=== PATIENT | male | born 1955 | race American Indian/Alaskan Native ===

== ENCOUNTER 2016-07-21 22:01 | Observation (INO) | payer MEDICARE, MEDICAID ==
[2016-07-21 22:28] VITALS: BMI 25.7
--- NOTE | 2016-07-21 22:51 | ED PDOC ---
Arrival/HPI - General Time Seen by Provider: 07/21/16 22:08 - History of Present Illness Narrative History of Present Illness (Text): 07/21/16 22:51 Charly Gao is a 61 year old male, whose past medical history includes diabetes, hypertension, COPD, HIV on HAART therapy, Hepatitis C, and osteomyelitis of spine, presents to the emergency department complaining of shortness of breath and chest tightness. Reports that symptoms are similar to previous COPD episodes. Denies any fever, chills, headache, abdominal pain, nausea, vomiting, diarrhea, urinary symptoms, or any other complaints at this time. Time/Duration: 4-6 hours Symptom Onset: Gradual Symptom Course: Unchanged Quality: Tightness Severity Level: Mild Activities at Onset: Light Context: Home Past Medical History - Provider Review Nursing Documentation Reviewed: Yes - Infectious Disease Hx of Infectious Diseases: None - Tetanus Immunization Tetanus Immunization: Unknown - Cardiac Hx Hypertension: Yes - Pulmonary Hx Chronic Obstructive Pulmonary Disease (COPD): Yes - Neurological Hx Neurological Disorder: No - HEENT Hx HEENT Disorder: No - Renal Hx Renal Disorder: No - Endocrine/Metabolic Hx Diabetes Mellitus Type 2: Yes - Hematological/Oncological Hx Hepatitis C: Yes - Integumentary Hx Dermatological Disorder: No - Musculoskeletal/Rheumatological Hx Falls: No - Gastrointestinal Hx Pancreatitis: Yes - Genitourinary/Gynecological Hx Genitourinary Disorders: No - Psychiatric Hx Substance Use: Yes - Surgical History Hx Orthopedic Surgery: Yes (RT KNEE) - Anesthesia Hx Anesthesia: No Hx Anesthesia Reactions: No Hx Malignant Hyperthermia: No - Suicidal Assessment Feels Threatened In Home Enviroment: No Family/Social History - Physician Review Nursing Documentation Reviewed: Yes Family/Social History: No Known Family HX Smoking Status: Current Some Days Smoker Hx Alcohol Use: Yes Hx Substance Use: Yes Substance used: heroine Allergies/Home Meds Allergies/Adverse Reactions: Allergies No Known Allergies Allergy (Verified 07/24/16 08:16) Review of Systems - Physician Review All systems were reviewed & negative as marked: Yes - Review of Systems Constitutional: Normal. absent: Fatigue, Fevers Respiratory: SOB. absent: Cough, Sputum Cardiovascular: Chest Pain (chest tightness ) Gastrointestinal: Normal. absent: Abdominal Pain, Diarrhea, Nausea, Vomiting Genitourinary Male: Normal Neurological: Normal. absent: Headache, Dizziness Psychiatric: Normal Physical Exam Vital Signs Reviewed: Yes Vital Signs Temp Pulse Resp BP Pulse Ox 04/04/17 05:01 20 100 07/22/16 02:30 76 20 120/78 98 07/21/16 23:00 20 98 07/21/16 22:02 98.9 F 80 18 117/67 98 Temperature: Afebrile Blood Pressure: Normal Pulse: Regular Respiratory Rate: Normal Appearance: Positive for: Well-Appearing, Non-Toxic, Comfortable Pain Distress: None Mental Status: Positive for: Alert and Oriented X 3 - Systems Exam Head: Present: Atraumatic, Normocephalic Pupils: Present: PERRL Extroacular Muscles: Present: EOMI Conjunctiva: Present: Normal Respiratory/Chest: Present: Wheezes (wheezing bilaterally. ). No: Respiratory Distress, Accessory Muscle Use Cardiovascular: Present: Regular Rate and Rhythm, Normal S1, S2. No: Murmurs Abdomen: Present: Normal Bowel Sounds. No: Tenderness, Distention, Peritoneal Signs Upper Extremity: Present: Normal Inspection. No: Cyanosis, Edema Lower Extremity: Present: Normal Inspection. No: Edema Neurological: Present: GCS=15, CN II-XII Intact, Speech Normal Skin: Present: Warm, Dry, Normal Color. No: Rashes Psychiatric: Present: Alert, Oriented x 3, Normal Insight, Normal Concentration Medical Decision Making ED Course and Treatment: 07/21/16 22:48 Impression: A 61 year old male who presents to emergency department for shortness of breath and COPD exacerbation. Plan: -- EKG -- Labs, cardiac enzymes -- Chest X-ray -- Duoneb -- Solumedrol -- Reassess and disposition Progress Notes: 07/21/16 23:09 EKG reviewed by me: NSR @ 78 bpm. Normal axis. normal interval. 07/22/16 02:[address] Gonzales who is aware and agrees with the plan to admit patient to hospital for COPD exacerbation. Accepts patient under hospitalist service. - Lab Interpretations Lab Results: 07/21/16 23:40 Lab Results 07/21/16 23:40: WBC 6.9 D, RBC 4.14, Hgb 12.1 L, Hct 36.0 L, MCV 87.0, MCH 29.2 , MCHC 33.6, RDW 18.9 H, Plt Count 243, MPV 10.6, Gran % 91.8 H, Lymph % (Auto) 6.5 L, [place] % (Auto) 1.3, Eos % (Auto) 0.3 L, Baso % (Auto) 0.1, Gran # 6.37, Lymph # 0.5 L, [place] # 0.1, Eos # 0.0, Baso # 0.01, pO2 138 H, VBG pH 7.30 L, VBG pCO2 46.0, VBG HCO3 22.6, VBG Total CO2 24.0, VBG O2 Sat (Calc) 99.9 H, VBG Base Excess -4.0 L, VBG Potassium 16.5 H*, Sodium 127.0 L, Chloride 108.0 H, Glucose 44 L, Lactate 2.2 H, FiO2 21.0, Venous Blood Potassium 16.5 H* I have reviewed the lab results: Yes - RAD Interpretation Radiology Orders: 07/21/16 22:29 CHEST PORTABLE [RAD] Stat - EKG Interpretation Interpreted by ED Physician: Yes Type: 12 lead EKG - Medication Orders Current Medication Orders: Discontinued Medications Abacavir Sulfate (Ziagen) 300 mg PO BID [facility] Last Admin: 07/23/16 10:27 Dose: 300 MG Acetaminophen (Tylenol 325mg Tab) 650 mg PO Q6 PRN PRN Reason: Fever >100.4 F Albuterol/Ipratropium (Duoneb 3 Mg/0.5 Mg (3 Ml) Ud) 3 ml IH Q15M [facility] Stop: 07/21/16 23:01 Last Admin: 07/22/16 02:15 Dose: 3 ML Albuterol/Ipratropium (Duoneb 3 Mg/0.5 Mg (3 Ml) Ud) 3 ml IH Q6 AMAYA Stop: 07/22/16 18:01 Albuterol/Ipratropium (Duoneb 3 Mg/0.5 Mg (3 Ml) Ud) 3 ml IH Q2 PRN PRN Reason: Shortness of Breath Stop: 07/22/16 08:01 Albuterol/Ipratropium (Duoneb 3 Mg/0.5 Mg (3 Ml) Ud) 3 ml IH Q2 PRN PRN Reason: Shortness of Breath Stop: 07/22/16 08:01 Albuterol/Ipratropium (Duoneb 3 Mg/0.5 Mg (3 Ml) Ud) 3 ml IH Q6 AMAYA Stop: 07/22/16 18:01 Last Admin: 07/22/16 20:50 Dose: 3 ML Albuterol/Ipratropium (Duoneb 3 Mg/0.5 Mg (3 Ml) Ud) 3 ml IH Q6 [facility] Last Admin: 07/23/16 07:34 Dose: 3 ML Amlodipine Besylate (Norvasc) 5 mg PO DAILY [facility] Last Admin: 07/23/16 10:27 Dose: 5 MG MAR Pulse and Blood Pressure Document 07/23/16 10:27 ANTOALL (Rec: 07/23/16 10:27 [place] [facility] [id number] [place] Pulse Pulse Rate (60-90) 65 Blood Pressure Blood Pressure (100/60-150/90) 125/75 Atovaquone (Mepron) 750 mg PO BID [facility] Last Admin: 07/23/16 10:27 Dose: 750 MG Famotidine (Pepcid) 20 mg PO DAILY [facility] Last Admin: 07/23/16 10:27 Dose: 20 MG Furosemide (Lasix) 20 mg PO DAILY [facility] Gabapentin (Neurontin) 300 mg PO TID [facility] PRN Reason: Protocol Last Admin: 07/23/16 10:27 Dose: 300 MG Behavioural Document 07/23/16 10:27 ANTOALL (Rec: 07/23/16 10:27 ANTOALL [facility] [id number] [place] Maintenance Maintenance Dose Yes Re-Assess: Reassess Psych Meds Document 07/23/16 11:27 ANTOALL (Rec: 07/23/16 12:04 ANTOALL [id number]) Reassess Psych Med Effective Azithromycin (Zithromax 500mg In Ns) 250 mls @ 167 mls/hr IVPB DAILY [facility] PRN Reason: Protocol Last Admin: 07/23/16 10:25 Dose: 167 MLS/HR eMAR Start Stop Document 07/23/16 10:25 ANTOALL (Rec: 07/23/16 10:25 ANTOALL [facility] [id number] ) Intravenous Solution Start Date 07/23/16 Start Time 10:25 End Date 07/23/16 End time 11:55 Total Infusion Time 90 Sodium Chloride (Sodium Chloride 0.9%) 1,000 mls @ 125 mls/hr IV .Q8H [facility] Last Admin: 07/22/16 23:20 Dose: 125 MLS/HR eMAR Start Stop Document 07/22/16 23:20 BN (Rec: 07/22/16 23:20 BN [id number]) Intravenous Solution Start Date 07/22/16 Start Time 23:20 Sodium Chloride (Sodium Chloride 0.9%) 1,000 mls @ 999 mls/hr IV .Q1H1M STA Stop: 07/22/16 07:30 Insulin Detemir (Levemir) 22 unit SC HS [facility] Last Admin: 07/22/16 21:45 Dose: 22 UNIT Subcutaneous Administrations Document 07/22/16 21:45 BN (Rec: 07/22/16 21:46 BN [id number]) Charges for Administration # of Subcutaneous Administrations 1 Insulin Human Regular (Humulin R Low) 0 units SC ACHS [facility] PRN Reason: Protocol Last Admin: 07/23/16 12:04 Dose: 1 UNITS MAR Blood Glucose Document 07/23/16 12:04 ANTOALL (Rec: 07/23/16 12:04 ANTOALL [id number]) Blood Glucose Finger Stick Blood Glucose (70-120) 157 Subcutaneous Administrations Document 07/23/16 12:04 ANTOALL (Rec: 07/23/16 12:04 ANTOALL [id number]) Injection Site MAR Injection Site Right Arm Charges for Administration # of Subcutaneous Administrations 1 Lamivudine (Epivir) 150 mg PO BID [facility] Last Admin: 07/23/16 10:27 Dose: 150 MG Losartan Potassium (Cozaar) 50 mg PO DAILY [facility] Methylprednisolone (Solu-Medrol) 125 mg IVP STAT STA Stop: 07/21/16 22:29 Last Admin: 07/22/16 00:19 Dose: 125 MG IVP Administration Document 07/22/16 00:19 EQ (Rec: 07/22/16 00:19 EQ [facility] [id number]) Charges for Administration # of IVP Administrations 1 Methylprednisolone (Solu-Medrol) 40 mg IVP Q8 [facility] Last Admin: 07/22/16 14:07 Dose: 40 MG IVP Administration Document 07/22/16 14:07 ANTOALL (Rec: 07/22/16 14:07 ANTOALL [id number]) Charges for Administration # of IVP Administrations 1 Methylprednisolone (Solu-Medrol) 40 mg IVP DAILY [facility] Last Admin: 07/23/16 10:26 Dose: 40 MG IVP Administration Document 07/23/16 10:26 ANTOALL (Rec: 07/23/16 10:26 ANTOALL [facility] [id number] [place] Charges for Administration # of IVP Administrations 1 Metronidazole (Flagyl) 500 mg PO Q8 [facility] PRN Reason: Protocol Last Admin: 07/23/16 05:36 Dose: 500 MG Multivitamins (Thera Tab) 1 tab PO DAILY [facility] Last Admin: 07/23/16 10:27 Dose: 1 TAB Non-Formulary Medication (Calcium Carbonate/Vitamin D3 [Calcium 600 + Vit D Tablet]) 1 tab PO ACBL [facility] Last Admin: 07/23/16 12:04 Dose: Non-Formulary Medication (Ledipasvir/Sofosbuvir [Harvoni 90-400 Mg Tablet]) 1 tab PO DAILY [facility] Last Admin: 07/23/16 10:28 Dose: Raltegravir (Isentress) 400 mg PO BID [facility] Last Admin: 07/23/16 10:27 Dose: 400 MG Spironolactone (Aldactone) 25 mg PO DAILY [facility] - Scribe Statement The provider has reviewed the documentation as recorded by the Temo Padgett Provider Attestation: All medical record entries made by the Temo were at my direction and personally dictated by me. I have reviewed the chart and agree that the record accurately reflects my personal performance of the history, physical exam, medical decision making, and the department course for this patient. I have also personally directed, reviewed, and agree with the discharge instructions and disposition. Disposition/Present on Arrival - Present on Arrival Any Indicators Present on Arrival: No History of DVT/PE: No History of Uncontrolled Diabetes: Yes Urinary Catheter: No History Surgical Site Infection Following: None - Disposition Have Diagnosis and Disposition been Completed?: Yes Diagnosis: Chronic obstructive lung disease Disposition: HOSPITALIZED Disposition Time: 02:25 Patient Problems: Current Active Problems Problem Status Diagnosed Anemia Acute Chest pain Acute Chest pain Acute Chronic respiratory failure Acute Dehydration Acute Exacerbation of asthma Acute Heroin abuse Acute Insomnia Acute Positive blood culture Acute Respiratory distress Acute Transaminitis Acute COPD, frequent exacerbations Chronic Diabetes mellitus type 2 in nonobese Chronic HIV (human immunodeficiency virus infection) Chronic IDDM (insulin dependent diabetes mellitus) Chronic Anxiety Chronic CHF (congestive heart failure) Chronic Drug abuse and dependence Chronic HIV antibody positive Chronic History of hepatitis C Chronic Non compliance with medical treatment Chronic Non-adherence to medical treatment Chronic Substance abuse or dependence Chronic Bronchitis Suspected Chronic alcoholic pancreatitis Suspected Dyspnea on exertion Resolved Diarrhea Resolved Condition: GOOD
[2016-07-21 23:49] LABS: ADD MANUAL DIFF? NO
[2016-07-22 00:02] LABS: BASO # 0.01 K/mm3 (0.0-2.0); BASO % 0.1 % (0.0-3.0); EOS % 0.3 % (1.5-5.0); GRAN # 6.37 (1.4-6.5); GRAN % 91.8 % (50.0-68.0); LYMPH # 0.5 (1.2-3.4); LYMPH % 6.5 % (22.0-35.0); MEAN CORPUSCULAR HEMOGLOBIN 29.2 pg (25.0-35.0); MEAN CORPUSCULAR HGB CONC 33.6 g/dl (31.0-37.0); MEAN PLATELET VOLUME 10.6 fl (7.0-11.0); MONO # 0.1 (0.1-0.6); MONO % 1.3 % (1.0-6.0); PLATELET COUNT 243 10^3/uL (120.0-450.0); RED CELL DISTRIBUTION WIDTH 18.9 % (11.5-14.5); WHITE BLOOD COUNT 6.9 10^3/ul (4.5-11.0)
[2016-07-22] MEDS: Albuterol-Ipratrop 3 mg / 0.5 (3 ml) UD IH SCH ×6 (00:19→20:50)
--- NOTE | 2016-07-22 02:53 | CP.PCM.HP ---
<CristopherChester - Last Filed: 07/22/16 03:14> History of Present Illness - History of Present Illness History of Present Illness: This is a 61 yo male with past medical hx of DM, HIV, on antiretroviral therapy , hep C, pancreatitis presenting with sob x 1 day. Pt has long hx of COPD and has baseline shortness of breath. Pt says SOB began worsening suddenly about 530 PM while he was watching tv. Pt tried symbicort plus nebulizer tx but they did not provide relief. At about 630, pt called ambulance. This is similar to attacks of COPD in past. Pt has had non productive cough for the past few days. He also reports some chest tightness. Also reports a few episodes of non bloody diarrhea, recent tx for C diff associated diarrhea. PMH: COPD, HIV, hep C, pancreatitis, osteomyelitis, c diff PSH: Plate in left face Allergies: NKDA FH: Kidney dx in family Home meds: see MAR Social hx: former smoker. quit 5 yrs ago. Smoker for 50 years, 1 ppd. Denies drinking. Denies drug use. Lives alone in [place]. Present on Admission - Present on Admission Any Indicators Present on Admission: No History of DVT/PE: No History of Uncontrolled Diabetes: No Urinary Catheter: No Decubitus Ulcer Present: No Review of Systems - Review of Systems All systems: reviewed and no additional remarkable complaints except Review of Systems: Negative except as stated in HPI. Past Patient History - Infectious Disease Hx of Infectious Diseases: None - Tetanus Immunizations Tetanus Immunization: Unknown - Past Medical History & Family History Past Medical History?: Yes Pertinent Family History: Kidney dx in family - Past Social History Smoking Status: Former Smoker Chewing Tobacco Use: No Cigar Use: No Alcohol: None Drugs: Denies Home Situation {Lives}: Alone Domestic Violence: Negative - CARDIAC Hx Hypertension: Yes - PULMONARY Hx Chronic Obstructive Pulmonary Disease (COPD): Yes - NEUROLOGICAL Hx Neurological Disorder: No - HEENT Hx HEENT Problems: No - RENAL Hx Chronic Kidney Disease: No - ENDOCRINE/METABOLIC Hx Diabetes Mellitus Type 2: Yes - HEMATOLOGICAL/ONCOLOGICAL Hx Hepatitis C: Yes - INTEGUMENTARY Hx Dermatological Problems: No - MUSCULOSKELETAL/RHEUMATOLOGICAL Hx Falls: No - GASTROINTESTINAL Hx Pancreatitis: Yes - GENITOURINARY/GYNECOLOGICAL Hx Genitourinary Disorders: No - PSYCHIATRIC Hx Substance Use: Yes - SURGICAL HISTORY Hx Orthopedic Surgery: Yes (RT KNEE) - ANESTHESIA Hx Anesthesia: No Hx Anesthesia Reactions: No Hx Malignant Hyperthermia: No Meds Allergies/Adverse Reactions: Allergies Allergy/AdvReac Type Severity Reaction Status Date / Time No Known Allergies Allergy Verified 09/26/15 03:59 Physical Exam - Constitutional Appears: Non-toxic, No Acute Distress - Head Exam Head Exam: ATRAUMATIC, NORMAL INSPECTION, NORMOCEPHALIC - Eye Exam Eye Exam: EOMI - ENT Exam ENT Exam: Mucous Membranes Moist - Neck Exam Neck exam: Positive for: Normal Inspection - Respiratory Exam Respiratory Exam: Decreased Breath Sounds, Wheezes. absent: Accessory Muscle Use, Respiratory Distress, NORMAL BREATHING PATTERN - Cardiovascular Exam Cardiovascular Exam: REGULAR RHYTHM - GI/Abdominal Exam GI & Abdominal Exam: Normal Bowel Sounds, Soft. absent: Tenderness - Extremities Exam Extremities exam: Positive for: normal inspection - Neurological Exam Neurological exam: Alert, CN II-XII Intact, Oriented x3 - Psychiatric Exam Psychiatric exam: Normal Affect, Normal Mood - Skin Skin Exam: Dry, Intact, Normal Color, Warm Results - Vital Signs Recent Vital Signs: Last Vital Signs Temp 98.9 F 07/21/16 22:02 Pulse 80 07/21/16 22:02 Resp 20 07/21/16 23:00 BP 117/67 07/21/16 22:02 Pulse Ox 98 07/21/16 23:00 - Labs Result Diagrams: 07/21/16 23:40 Labs: Laboratory Results - last 24 hr 07/21/16 23:40 WBC 6.9 D RBC 4.14 Hgb 12.1 L Hct 36.0 L MCV 87.0 MCH 29.2 MCHC 33.6 RDW 18.9 H Plt Count 243 MPV 10.6 Gran % 91.8 H Lymph % (Auto) 6.5 L [place] % (Auto) 1.3 Eos % (Auto) 0.3 L Baso % (Auto) 0.1 Gran # 6.37 Lymph # 0.5 L [place] # 0.1 Eos # 0.0 Baso # 0.01 pO2 138 H VBG pH 7.30 L VBG pCO2 46.0 VBG HCO3 22.6 VBG Total CO2 24.0 VBG O2 Sat (Calc) 99.9 H VBG Base Excess -4.0 L VBG Potassium 16.5 H* Sodium 127.0 L Chloride 108.0 H Glucose 44 L Lactate 2.2 H FiO2 21.0 Venous Blood Potassium 16.5 H* Assessment & Plan - Assessment and Plan (Free Text) Assessment: This is a 61 yo male with past medical hx of DM, HTN, hep C, osteomyelitis, pancreatitis presenting with sob secondary to COPD exacerbation 1. COPD exacerbation -duonebs q 6 deep and q 2 prn -solumedrol 40 q 8 -zithromax 500 daily -pre and post peak flow -cxr shows increased vascular markings, no infiltrate, no consolidation -EKG NSR -if pt spikes fever, can broaden abx coverage and draw blood and urine cultures 2. Diarrhea -stool c diff -stool culture -stool electrolytes -continue PO flagyl -isolation contact precautions 3. Hx of HIV -continue haart therapy 4. Hx of DM -continue home levemir -ISS 5. hx of HTN -continue home BP meds 6. GI/DVT ppx -continue pepcid daily -SCDs discussed with Dr. Gonzales <Max Gonzales Q - Last Filed: 07/22/16 08:40> Results - Vital Signs Recent Vital Signs: Last Vital Signs Temp 97.9 F 07/22/16 06:54 Pulse 64 07/22/16 06:54 Resp 22 07/22/16 06:54 BP 123/74 07/22/16 06:54 Pulse Ox 100 07/22/16 05:01 - Labs Result Diagrams: 07/22/16 08:00 07/22/16 08:00 Labs: Laboratory Results - last 24 hr 07/22/16 07/22/16 07/22/16 05:00 07:28 08:00 WBC 4.1 L D RBC 3.98 Hgb 11.2 L Hct 34.8 L MCV 87.4 MCH 28.1 MCHC 32.2 RDW 17.0 H Plt Count 197 MPV 9.4 Gran % 87.2 H Lymph % (Auto) 12.3 L [place] % (Auto) 0.5 L Eos % (Auto) 0.0 L Baso % (Auto) 0.0 Gran # 3.54 Lymph # 0.5 L [place] # 0.0 L Eos # 0.0 Baso # 0.00 pO2 67 H VBG pH 7.27 L VBG pCO2 33.0 L VBG HCO3 15.2 L VBG Total CO2 16.2 L VBG O2 Sat (Calc) 92.2 H VBG Base Excess -10.6 L VBG Potassium 5.2 Sodium 134.0 136 Chloride 105.0 103 Glucose 143 H Lactate 4.7 H* FiO2 21.0 Potassium 4.5 Carbon Dioxide 22 Anion Gap 16 BUN 27 H Creatinine 1.1 Est GFR ( Amer) > 60 Est GFR (Non-Af Amer) > 60 POC Glucose (mg/dL) 333 H Random Glucose 312 H* D Calcium 9.2 Total Bilirubin 0.3 AST 28 ALT 33 Alkaline Phosphatase 86 Lactate Dehydrogenase 421 Total Creatine Kinase 207 Total Protein 7.4 Albumin 4.0 Globulin 3.4 Albumin/Globulin Ratio 1.2 Venous Blood Potassium 5.2 Attending/Attestation - Attestation I have personally seen and examined this patient.: Yes I have fully participated in the care of the patient.: Yes I have reviewed all pertinent clinical information: Yes
[2016-07-22] MEDS ORDERED: Albuterol-Ipratrop 3 mg / 0.5 (3 ml) UD IH PRN ×2 (03:02→03:06)
[2016-07-22 05:28] LABS: VENOUS BLOOD GAS BASE EXCESS -10.6 mmol/L (0.0-2.0); VENOUS BLOOD PH 7.27 (7.32-7.43)
[2016-07-22] MEDS ORDERED: Albuterol-Ipratrop 3 mg / 0.5 (3 ml) UD IH SCH (06:00)
[2016-07-22] MEDS: MethylPREDNISolone 40 mg Vial IVP SCH ×2 (06:19→14:07)
[2016-07-22] MEDS ORDERED: Sodium Chloride 0.9% 1,000 ML IV STA (06:30)
[2016-07-22 08:10] LABS: ADD MANUAL DIFF? NO
[2016-07-22 08:14] LABS: GRAN # 3.54 (1.4-6.5); GRAN % 87.2 % (50.0-68.0); HEMATOCRIT 34.8 % (42.0-52.0); LYMPH # 0.5 (1.2-3.4); LYMPH % 12.3 % (22.0-35.0); MEAN CELL VOLUME 87.4 fL (80.0-105.0); MEAN CORPUSCULAR HEMOGLOBIN 28.1 pg (25.0-35.0); MEAN CORPUSCULAR HGB CONC 32.2 g/dl (31.0-37.0); MEAN PLATELET VOLUME 9.4 fl (7.0-11.0); MONO % 0.5 % (1.0-6.0); PLATELET COUNT 197 10^3/uL (120.0-450.0); WHITE BLOOD COUNT 4.1 10^3/ul (4.5-11.0)
[2016-07-22 08:30] LABS: ALB/GLOB RATIO 1.2 (1.1-1.8); ALKALINE PHOSPHATASE 86 U/L (38-133); ALT/SGPT 33 U/L (7-56); AST/SGOT 28 U/L (15-59); BILIRUBIN,TOTAL 0.3 mg/dL (0.2-1.3); BLOOD UREA NITROGEN 27 mg/dL (7-21); CALCIUM 9.2 mg/dL (8.4-10.5); CARBON DIOXIDE 22 mmol/L (21-33); CHLORIDE 103 mmol/L (98-107); GFR AFRICAN-AMERICAN > 60; POTASSIUM 4.5 mmol/L (3.6-5.0); SODIUM 136 mmol/L (132-148); TOTAL PROTEIN 7.4 g/dL (5.8-8.3)
[2016-07-22 08:35] LABS: GLUCOSE,RANDOM 312 mg/dL (70-110)
[2016-07-22 08:41] LABS: TROPONIN I 0.01 ng/mL
--- NOTE | 2016-07-22 08:42 | RAD ---
HISTORY: sob COMPARISON: 06/29/2016 FINDINGS: LUNGS: No active pulmonary disease. PLEURA: No significant pleural effusion identified, no pneumothorax apparent. CARDIOVASCULAR: Normal. OSSEOUS STRUCTURES: No significant abnormalities. VISUALIZED UPPER ABDOMEN: Normal. OTHER FINDINGS: None. IMPRESSION: No active disease.
[2016-07-22] MEDS: Insulin Reg-LOW-Coverage SC SCH ×4 (09:10→21:46)
[2016-07-22] MEDS: Non Formulary Medication (Calcium Carbonate/Vitamin D3 [Calcium 600 + Vit D Tablet] 1 TAB) PO SCH ×2 (09:51→13:09)
[2016-07-22] MEDS: SOFOSBUVIR PO SCH (09:52)
[2016-07-22] MEDS: LEDIPASVIR PO SCH (09:52)
[2016-07-22] MEDS: Atovaquone 750 mg/5 ml Susp UD PO SCH ×2 (09:52→17:55)
[2016-07-22] MEDS: Multivitamin Therapeutic Tab PO SCH (09:53)
[2016-07-22] MEDS: Azithromycin 500MG/NS 250ml 250 ML IVPB SCH (14:07)
[2016-07-22] MEDS: Sodium Chloride 0.9% 1,000 ML IV SCH ×2 (14:08→23:20)
--- NOTE | 2016-07-22 18:40 | CARD ---
APPROVED REPORT EKG Measurement Heart [id number] <Conclusion> Normal sinus rhythm Normal ECG
[2016-07-22] MEDS ORDERED: Insulin Detemir 100 units/ml Vial (Levemir) SC SCH (22:00)
[2016-07-23] MEDS: Albuterol-Ipratrop 3 mg / 0.5 (3 ml) UD IH SCH ×2 (00:19→07:34)
[2016-07-23] MEDS: Sodium Chloride 0.9% 1,000 ML IV SCH (06:26)
[2016-07-23 07:55] LABS: MEAN CELL VOLUME 86.6 fL (80.0-105.0); MEAN CORPUSCULAR HEMOGLOBIN 28.6 pg (25.0-35.0); MEAN PLATELET VOLUME 9.5 fl (7.0-11.0); RED CELL DISTRIBUTION WIDTH 17.1 % (11.5-14.5); WHITE BLOOD COUNT 10.4 10^3/ul (4.5-11.0)
[2016-07-23 08:10] LABS: BLOOD UREA NITROGEN 24 mg/dL (7-21); CALCIUM 8.9 mg/dL (8.4-10.5); CARBON DIOXIDE 26 mmol/L (21-33); CHLORIDE 108 mmol/L (98-107); GFR AFRICAN-AMERICAN > 60; POTASSIUM 3.5 mmol/L (3.6-5.0); SODIUM 143 mmol/L (132-148)
[2016-07-23] MEDS: Non Formulary Medication (Calcium Carbonate/Vitamin D3 [Calcium 600 + Vit D Tablet] 1 TAB) PO SCH ×2 (08:19→12:04)
[2016-07-23] MEDS: Insulin Reg-LOW-Coverage SC SCH ×2 (08:19→12:04)
[2016-07-23 08:22] LABS: GLUCOSE,RANDOM 46 mg/dL (70-110)
[2016-07-23 08:40] VITALS: RESP 20; TEMP 98; O2SAT 97
[2016-07-23] MEDS ORDERED: MethylPREDNISolone 40 mg Vial IVP SCH (10:00)
[2016-07-23] MEDS: Azithromycin 500MG/NS 250ml 250 ML IVPB SCH (10:25)
[2016-07-23] MEDS: Atovaquone 750 mg/5 ml Susp UD PO SCH (10:27)
[2016-07-23] MEDS: Multivitamin Therapeutic Tab PO SCH (10:27)
[2016-07-23] MEDS: LEDIPASVIR PO SCH (10:28)
[2016-07-23] MEDS: SOFOSBUVIR PO SCH (10:28)
[2016-07-23 10:31] VITALS: BP 125/75; PULSE 65
--- NOTE | 2016-07-23 12:39 | CP.PCM.DIS ---
<Remberto Daigle - Last Filed: 07/23/16 13:42> Provider - Provider Date of Admission: 07/22/16 03:18 Attending physician: Dulec Rodriguez MD Time Spent in preparation of Discharge (in minutes): 45 Diagnosis - Discharge Diagnosis (1) COPD, frequent exacerbations Status: Chronic Priority: Medium (2) Diabetes mellitus type 2 in nonobese Status: Chronic Priority: Medium (3) HIV (human immunodeficiency virus infection) Status: Chronic Priority: Medium (4) CHF (congestive heart failure) Status: Chronic (5) SOB (shortness of breath) Status: Resolved Priority: Low Hospital Course - Lab Results Lab Results: Most Recent Lab Values WBC 10.4 10^3/ul (4.5-11.0) D 07/23/16 07:30 RBC 3.81 10^6/uL (3.5-6.1) 07/23/16 07:30 Hgb 10.9 gm/dL (14.0-18.0) L 07/23/16 07:30 Hct 33.0 % (42.0-52.0) L 07/23/16 07:30 MCV 86.6 fL (80.0-105.0) 07/23/16 07:30 MCH 28.6 pg (25.0-35.0) 07/23/16 07:30 MCHC 33.0 g/dl (31.0-37.0) 07/23/16 07:30 RDW 17.1 % (11.5-14.5) H 07/23/16 07:30 Plt Count 189 10^3/uL (120.0-450.0) 07/23/16 07:30 MPV 9.5 fl (7.0-11.0) 07/23/16 07:30 Gran % 87.2 % (50.0-68.0) H 07/22/16 08:00 Lymph % (Auto) 12.3 % (22.0-35.0) L 07/22/16 08:00 Knott % (Auto) 0.5 % (1.0-6.0) L 07/22/16 08:00 Eos % (Auto) 0.0 % (1.5-5.0) L 07/22/16 08:00 Baso % (Auto) 0.0 % (0.0-3.0) 07/22/16 08:00 Gran # 3.54 (1.4-6.5) 07/22/16 08:00 Lymph # 0.5 (1.2-3.4) L 07/22/16 08:00 Knott # 0.0 (0.1-0.6) L 07/22/16 08:00 Eos # 0.0 (0.0-0.7) 07/22/16 08:00 Baso # 0.00 K/mm3 (0.0-2.0) 07/22/16 08:00 pO2 67 mm/Hg (30-55) H 07/22/16 05:00 VBG pH 7.27 (7.32-7.43) L 07/22/16 05:00 VBG pCO2 33.0 (40-60) L 07/22/16 05:00 VBG HCO3 15.2 mmol/l (21-28) L 07/22/16 05:00 VBG Total CO2 16.2 mmol.L (22-28) L 07/22/16 05:00 VBG O2 Sat (Calc) 92.2 % (40-65) H 07/22/16 05:00 VBG Base Excess -10.6 mmol/L (0.0-2.0) L 07/22/16 05:00 VBG Potassium 5.2 mmol/L (3.6-5.2) 07/22/16 05:00 Sodium 134.0 mmol/L (132-148) 07/22/16 05:00 Chloride 105.0 mmol/L (98-107) 07/22/16 05:00 Glucose 143 mg/dl (75-110) H 07/22/16 05:00 Lactate 4.7 mmol/L (0.7-2.1) H* 07/22/16 05:00 FiO2 21.0 % 07/22/16 05:00 Sodium 143 mmol/L (132-148) 07/23/16 07:30 Potassium 3.5 mmol/L (3.6-5.0) L 07/23/16 07:30 Chloride 108 mmol/L (98-107) H 07/23/16 07:30 Carbon Dioxide 26 mmol/L (21-33) 07/23/16 07:30 Anion Gap 13 (10-20) 07/23/16 07:30 BUN 24 mg/dL (7-21) H 07/23/16 07:30 Creatinine 1.0 mg/dL (0.5-1.4) 07/23/16 07:30 Est GFR ( Amer) > 60 07/23/16 07:30 Est GFR (Non-Af Amer) > 60 07/23/16 07:30 POC Glucose (mg/dL) 157 mg/dL (65-110) H 07/23/16 11:38 Random Glucose 46 mg/dL (70-110) L* D 07/23/16 07:30 Calcium 8.9 mg/dL (8.4-10.5) 07/23/16 07:30 Total Bilirubin 0.3 mg/dL (0.2-1.3) 07/22/16 08:00 AST 28 U/L (15-59) 07/22/16 08:00 ALT 33 U/L (7-56) 07/22/16 08:00 Alkaline Phosphatase 86 U/L (38-133) 07/22/16 08:00 Lactate Dehydrogenase 421 U/L (333-699) 07/22/16 08:00 Total Creatine Kinase 207 U/L (35-230) 07/22/16 08:00 Troponin I 0.01 ng/mL 07/22/16 08:00 NT-Pro-B Natriuret Pep 146 pg/mL (0-450) 07/22/16 08:00 Total Protein 7.4 g/dL (5.8-8.3) 07/22/16 08:00 Albumin 4.0 g/dL (3.0-4.8) 07/22/16 08:00 Globulin 3.4 gm/dL 07/22/16 08:00 Albumin/Globulin Ratio 1.2 (1.1-1.8) 07/22/16 08:00 Venous Blood Potassium 5.2 mmol/L (3.6-5.2) 07/22/16 05:00 Influenza Typ A,B (EIA) Negative for flu a/b (NEGATIVE) 07/23/16 04:10 - Hospital Course Hospital Course: 61 yo male with past medical hx of DM, HIV, on antiretroviral therapy, hep C, pancreatitis presented with COPD exacerbation on 07/22/16. Pt stated he had run out of nebulizer treatment at home and was unable to refill his prescription. Pt developed SOB and came to the ED. Pt was placed on IV steroids and given scheduled duoneb treatments. In addition, patient was placed on azithromycin. Pt improved over 1 day of treatment. Pt was discharged the next day and given a medrol dose pack to go home with along with 2 more days of antibiotics. Pt told to follow up with PMD in 1 week. Discharge Exam - Head Exam Head Exam: ATRAUMATIC, NORMAL INSPECTION, NORMOCEPHALIC - ENT Exam ENT Exam: Mucous Membranes Moist, Normal Exam - Respiratory Exam Respiratory Exam: NORMAL BREATHING PATTERN, UNREMARKABLE. absent: Rales, Rhonchi, Wheezes - Cardiovascular Exam Cardiovascular Exam: RRR, +S1, +S2 - GI/Abdominal Exam GI & Abdominal Exam: Normal Bowel Sounds, Soft. absent: Tenderness - Extremities Exam Extremities exam: normal inspection - Neurological Exam Neurological exam: Alert, CN II-XII Intact, Oriented x3 - Psychiatric Exam Psychiatric exam: Normal Affect, Normal Mood - Skin Skin Exam: Intact, Normal Color, Warm Discharge Plan - Discharge Medications Prescriptions: Spironolactone [Aldactone] 25 mg PO DAILY #7 tab Lactobacillus Acidophilus [Bacid Acidophilus] 1 cap PO BID #10 cap Calcium Carbonate/Vitamin D3 [Calcium 600 + Vit D Tablet] 1 tab PO ACBL #5 tablet Losartan [Cozaar] 50 mg PO DAILY #5 tab Albuterol/Ipratropium [Duoneb 3 mg/0.5 mg (3 ml) UD] 3 ml IH Q6 #3 neb lamiVUDine [Epivir] 150 mg PO Q12 #10 tab lamiVUDine [Epivir] 150 mg PO BID #14 tab Ledipasvir/Sofosbuvir [Harvoni 90-400 mg Tablet] 1 tab PO DAILY #7 tablet Raltegravir Potassium [Isentress] 400 mg PO BID #10 tab Furosemide [Lasix] 20 mg PO DAILY #5 tab Insulin Detemir [Levemir] 15 unit SC HS #5 unit Methylprednisolone [Medrol Dose Pack (21 tabs)] See Taper PO DAILY #21 mg Atovaquone [Mepron] 750 mg PO BID #10 packet Multivitamin [Multivitamins] 1 each PO DAILY #7 capsule Gabapentin [Neurontin] 300 mg PO TID #15 cap amLODIPine [Norvasc] 5 mg PO DAILY #7 tab Famotidine [Pepcid] 20 mg PO DAILY #5 tab Budesonide/Formoterol Fumarate [Symbicort] 1 aer IH BID #1 aer Albuterol HFA [Ventolin HFA 90 mcg/actuation (8 g)] 1 puff IH PRN PRN #1 inhaler PRN Reason: Shortness Of Breath Abacavir [Ziagen] 300 mg PO BID #10 tab Azithromycin [Zithromax] 250 mg PO DAILY #2 tab - Follow Up Plan Condition: GOOD Disposition: HOME/ ROUTINE Instructions: Chest Pain (DC), Diabetes Mellitus Type 1 in Adults (DC), Hepatitis C (DC), COPD (Chronic Obstructive Pulmonary Disease) (DC), Dyspnea ( GEN) Additional Instructions: Follow up with primary care provider within 1 week. Take medications as prescribed. Return to Local ER if symptoms worsen. <Tami MONTALVO,[facility] - Last Filed: 07/23/16 14:52> Provider - Provider Date of Admission: 07/22/16 03:18 Attending physician: Dulce Rodriguez MD Hospital Course - Lab Results Lab Results: Most Recent Lab Values WBC 10.4 10^3/ul (4.5-11.0) D 07/23/16 07:30 RBC 3.81 10^6/uL (3.5-6.1) 07/23/16 07:30 Hgb 10.9 gm/dL (14.0-18.0) L 07/23/16 07:30 Hct 33.0 % (42.0-52.0) L 07/23/16 07:30 MCV 86.6 fL (80.0-105.0) 07/23/16 07:30 MCH 28.6 pg (25.0-35.0) 07/23/16 07:30 MCHC 33.0 g/dl (31.0-37.0) 07/23/16 07:30 RDW 17.1 % (11.5-14.5) H 07/23/16 07:30 Plt Count 189 10^3/uL (120.0-450.0) 07/23/16 07:30 MPV 9.5 fl (7.0-11.0) 07/23/16 07:30 Gran % 87.2 % (50.0-68.0) H 07/22/16 08:00 Lymph % (Auto) 12.3 % (22.0-35.0) L 07/22/16 08:00 Knott % (Auto) 0.5 % (1.0-6.0) L 07/22/16 08:00 Eos % (Auto) 0.0 % (1.5-5.0) L 07/22/16 08:00 Baso % (Auto) 0.0 % (0.0-3.0) 07/22/16 08:00 Gran # 3.54 (1.4-6.5) 07/22/16 08:00 Lymph # 0.5 (1.2-3.4) L 07/22/16 08:00 Knott # 0.0 (0.1-0.6) L 07/22/16 08:00 Eos # 0.0 (0.0-0.7) 07/22/16 08:00 Baso # 0.00 K/mm3 (0.0-2.0) 07/22/16 08:00 pO2 67 mm/Hg (30-55) H 07/22/16 05:00 VBG pH 7.27 (7.32-7.43) L 07/22/16 05:00 VBG pCO2 33.0 (40-60) L 07/22/16 05:00 VBG HCO3 15.2 mmol/l (21-28) L 07/22/16 05:00 VBG Total CO2 16.2 mmol.L (22-28) L 07/22/16 05:00 VBG O2 Sat (Calc) 92.2 % (40-65) H 07/22/16 05:00 VBG Base Excess -10.6 mmol/L (0.0-2.0) L 07/22/16 05:00 VBG Potassium 5.2 mmol/L (3.6-5.2) 07/22/16 05:00 Sodium 134.0 mmol/L (132-148) 07/22/16 05:00 Chloride 105.0 mmol/L (98-107) 07/22/16 05:00 Glucose 143 mg/dl (75-110) H 07/22/16 05:00 Lactate 4.7 mmol/L (0.7-2.1) H* 07/22/16 05:00 FiO2 21.0 % 07/22/16 05:00 Sodium 143 mmol/L (132-148) 07/23/16 07:30 Potassium 3.5 mmol/L (3.6-5.0) L 07/23/16 07:30 Chloride 108 mmol/L (98-107) H 07/23/16 07:30 Carbon Dioxide 26 mmol/L (21-33) 07/23/16 07:30 Anion Gap 13 (10-20) 07/23/16 07:30 BUN 24 mg/dL (7-21) H 07/23/16 07:30 Creatinine 1.0 mg/dL (0.5-1.4) 07/23/16 07:30 Est GFR ( Amer) > 60 07/23/16 07:30 Est GFR (Non-Af Amer) > 60 07/23/16 07:30 POC Glucose (mg/dL) 157 mg/dL (65-110) H 07/23/16 11:38 Random Glucose 46 mg/dL (70-110) L* D 07/23/16 07:30 Calcium 8.9 mg/dL (8.4-10.5) 07/23/16 07:30 Total Bilirubin 0.3 mg/dL (0.2-1.3) 07/22/16 08:00 AST 28 U/L (15-59) 07/22/16 08:00 ALT 33 U/L (7-56) 07/22/16 08:00 Alkaline Phosphatase 86 U/L (38-133) 07/22/16 08:00 Lactate Dehydrogenase 421 U/L (333-699) 07/22/16 08:00 Total Creatine Kinase 207 U/L (35-230) 07/22/16 08:00 Troponin I 0.01 ng/mL 07/22/16 08:00 NT-Pro-B Natriuret Pep 146 pg/mL (0-450) 07/22/16 08:00 Total Protein 7.4 g/dL (5.8-8.3) 07/22/16 08:00 Albumin 4.0 g/dL (3.0-4.8) 07/22/16 08:00 Globulin 3.4 gm/dL 07/22/16 08:00 Albumin/Globulin Ratio 1.2 (1.1-1.8) 07/22/16 08:00 Venous Blood Potassium 5.2 mmol/L (3.6-5.2) 07/22/16 05:00 Influenza Typ A,B (EIA) Negative for flu a/b (NEGATIVE) 07/23/16 04:10 Attending/Attestation - Attestation I have personally seen and examined this patient.: Yes I have fully participated in the care of the patient.: Yes I have reviewed all pertinent clinical information, including history, physical exam and plan: Yes Notes (Text): Patient was seen and examined with medical consultant .Agreed with resident assessment and plan. 61 yo male with past medical hx of DM, HIV, on antiretroviral therapy, hep C, pancreatitis, chronic hypoxic Resp Failure due to COPD on 2 L of oxygen via nasal canula was admitted with cough/dyspnea due to COPD exacerbation, treeated with Nebulization,Steroid and antibiotic.He has responded well.His cough and dyspnea has improved.He is at his base line hypoxia.He is feeling at his base line and will be discharged home and will follow up with PCP.The issue of compliance with medication was discussed in detail. Management plan was discussed in detail with patient Education was provided.
== END 2016-07-23 14:27 | disposition home or self-care (01) ==
LOC: ED 22:01 → ERH 07-22 03:18 → 5RSO 07-22 05:19
PROVIDERS: ADMIT Internal Medicine; ATTEND Internal Medicine
DX: J44.1 Chronic obstructive pulmonary disease with (acute) exacerbation (principal); J96.11 Chronic respiratory failure with hypoxia; Z21 Asymptomatic human immunodeficiency virus [HIV] infection status; E11.9 Type 2 diabetes mellitus without complications; Z79.899 Other long term (current) drug therapy; K86.1 Other chronic pancreatitis; A04.7 Enterocolitis due to Clostridium difficile; I11.0 Hypertensive heart disease with heart failure; I50.9 Heart failure, unspecified; B18.2 Chronic viral hepatitis C; Z79.4 Long term (current) use of insulin; Z87.891 Personal history of nicotine dependence
CPT/HCPCS: 36415; 71010; 80048; 80053; 82550; 82803; 82948; 83615; 83880; 84484; 85025; 85027; 87045; 87177; 87209; 87324; 87804; 93005; 94640; 96374; 99285; G0378; J0456; J2920; J2930; J7040

== ENCOUNTER 2016-07-24 08:07 | Observation (INO) | payer MEDICARE, MEDICAID ==
[2016-07-24 08:16] VITALS: BMI 23.6
[2016-07-24 08:17] VITALS: TEMP 98.5; O2SAT 99
[2016-07-24] MEDS ORDERED: Sodium Chloride 0.9% 1,000 ML IV STA ×2 (09:02→10:03)
[2016-07-24 09:21] LABS: ADD MANUAL DIFF? NO
[2016-07-24 09:27] LABS: EOS # 0.1 (0.0-0.7); GRAN # 2.22 (1.4-6.5); GRAN % 73.5 % (50.0-68.0); HEMATOCRIT 41.6 % (42.0-52.0); LYMPH # 0.5 (1.2-3.4); LYMPH % 16.9 % (22.0-35.0); MEAN CORPUSCULAR HEMOGLOBIN 29.4 pg (25.0-35.0); MEAN CORPUSCULAR HGB CONC 32.7 g/dl (31.0-37.0); MEAN PLATELET VOLUME 9.9 fl (7.0-11.0); MONO # 0.2 (0.1-0.6); MONO % 7.6 % (1.0-6.0); PLATELET COUNT 193 10^3/uL (120.0-450.0); VENOUS BLOOD GAS BASE EXCESS -2.4 mmol/L (0.0-2.0)
--- NOTE | 2016-07-24 09:29 | ED PDOC ---
Arrival/HPI - General Historian: Patient - History of Present Illness Time/Duration: 24 hours Symptom Onset: Gradual - General Chief Complaint: GI Problem Time Seen by Provider: 07/24/16 08:38 - History of Present Illness Narrative History of Present Illness (Text): 07/24/16 09:29 61 y/o male with hx of HIV (on retroviral therapy), Hep C, diabetes presenting with reports of diarrhea. Patient was hospitalized here for COPD exacerbation and discharged on 07/23/16. Patient states he started experiencing watery non- bloody diarrhea yesterday and this morning. He notes associated generalized abdominal discomfort. He denies nausea, vomiting, fever or chills. Stool studies were done here during last admission which is positive for c.diff. Patient was discharged with prescriptions for abx however he did not pick these up. (Kobe Hines) Past Medical History - Provider Review Nursing Documentation Reviewed: Yes - Infectious Disease Hx of Infectious Diseases: None - Tetanus Immunization Tetanus Immunization: Unknown - Cardiac Hx Cardiac Disorders: Yes Hx Hypertension: Yes - Pulmonary Hx Respiratory Disorders: Yes Hx Chronic Obstructive Pulmonary Disease (COPD): Yes - Neurological Hx Neurological Disorder: No - HEENT Hx HEENT Disorder: No - Renal Hx Renal Disorder: No - Endocrine/Metabolic Hx Endocrine Disorders: Yes Hx Diabetes Mellitus Type 2: Yes - Hematological/Oncological Hx Blood Disorders: Yes Hx Hepatitis C: Yes - Integumentary Hx Dermatological Disorder: No - Musculoskeletal/Rheumatological Hx Falls: No - Gastrointestinal Hx Gastrointestinal Disorders: No Hx Pancreatitis: Yes - Genitourinary/Gynecological Hx Genitourinary Disorders: No - Psychiatric Hx Psychophysiologic Disorder: No Hx Substance Use: No (denies) - Surgical History Hx Orthopedic Surgery: Yes (RT KNEE) - Anesthesia Hx Anesthesia: No Hx Anesthesia Reactions: No Hx Malignant Hyperthermia: No - Suicidal Assessment Feels Threatened In Home Enviroment: No Family/Social History - Physician Review Nursing Documentation Reviewed: Yes Family/Social History: Unknown Family HX Smoking Status: Former Smoker Hx Alcohol Use: No Hx Substance Use: No (denies) Substance used: heroine Allergies/Home Meds Allergies/Adverse Reactions: Allergies No Known Allergies Allergy (Verified 07/24/16 08:16) Review of Systems - Physician Review All systems were reviewed & negative as marked: Yes - Review of Systems Constitutional: absent: Fatigue, Fevers Eyes: Normal ENT: Normal Respiratory: absent: SOB, Cough Cardiovascular: absent: Chest Pain, VIDES Gastrointestinal: Abdominal Pain, Diarrhea. absent: Nausea, Vomiting Genitourinary Male: absent: Dysuria, Frequency, Hematuria Musculoskeletal: absent: Arthralgias, Back Pain, Neck Pain Skin: Normal Neurological: absent: Headache, Dizziness, Focal Weakness Psychiatric: absent: Anxiety, Depression Physical Exam Vital Signs Reviewed: Yes Temperature: Afebrile Blood Pressure: Normal Pulse: Regular Respiratory Rate: Normal Appearance: Positive for: Well-Appearing, Non-Toxic Pain Distress: None Mental Status: Positive for: Alert and Oriented X 3 - Systems Exam Head: Present: Atraumatic, Normocephalic Pupils: Present: PERRL Extroacular Muscles: Present: EOMI Conjunctiva: Present: Normal Mouth: Present: Moist Mucous Membranes Neck: Present: Normal Range of Motion Respiratory/Chest: Present: Clear to Auscultation, Respiratory Distress Cardiovascular: Present: Regular Rate and Rhythm, Normal S1, S2 Abdomen: Present: Normal Bowel Sounds. No: Tenderness, Distention, Peritoneal Signs Upper Extremity: Present: Normal Inspection. No: Cyanosis, Edema Lower Extremity: Present: Normal Inspection, NORMAL PULSES. No: Edema, CALF TENDERNESS Neurological: Present: GCS=15, CN II-XII Intact, Speech Normal Skin: Present: Warm, Dry. No: Rashes Psychiatric: Present: Alert, Oriented x 3, Normal Insight, Normal Concentration Vital Signs Temp Pulse Resp BP Pulse Ox 07/24/16 13:07 89 18 114/69 99 07/24/16 11:10 97 H 18 110/65 99 07/24/16 08:16 98.5 F 108 H 17 111/68 99 Medical Decision Making ED Course and Treatment: 07/24/16 09:46 61 y/o male with hx HIV, HepC , DM presenting with diarrhea secondary to c.diff infection. Stool studies from prior admission on 07/23/16 are positive for c.diff toxin. Patient with many episodes of watery diarrhea and appears volume contracted clinically. He is afebrile. Will start the patient on Flagyl 500mg PO now. This medication will be available to [place] at [facility] as needed for further outpatient management of his c.difficile colitis. - Flagyl 500mg PO now - NS bolus - CBC - CMP - VBG w/lactate - zofran for nausea - reassess 07/24/16 10:22 lab results reviewed. lactate is elevated at 2.5. will give another liter bolus of normal saline and keep the patient in ED obs. will repeat lactate. there is no leukocytosis, anemia or electrolytes disturbance. 07/24/16 11:08 prior records were reviewed. patient tested positive for c.diff on 06/30/16 and was discharged on a 14 day course of Flagyl PO however the patient states he did not fill this prescription as an outpatient. repeat stool studies on are again positive for c.diff. 07/24/16 14:34 patient is discharged home. [employer] will transport the patient home. social work is delivering patient's medications to bedside. patient is discharged with Flagyl 500mg PO q6h for 14 days. he is to f/u at [facility] within one week. (Kobe Hines) Patient Seen With Resident: In agreement with resident note. Patient was seen and evaluated with resident, came up with plan and treatment together. 07/24/16 14:07 Patient has been non-compliant with original rx. He was discharged with rx but did not fill it. He was found to be persistently c.diff positive on repeat hospitalization for COPD. After IV hydration patient's labs have normalized. He has normal electrolytes and is tolerating po. He has soft NT/ND abdomen and was recently discharged from the hospital He was instructed on the importance of taking full course of flagyl and that prescription could be filled at [facility] pharmacy for free. Patient is well hydrated and tolerating po. Will dc 07/24/16 15:36 [employer] transportation was arranged home. 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 (Galilea Meraz ) - Lab Interpretations Lab Results: 07/24/16 09:20 07/24/16 09:20 Lab Results 07/24/16 09:20: WBC 3.0 L D, RBC 4.62, Hgb 13.6 L, Hct 41.6 L, MCV 90.0, MCH 29.4, MCHC 32.7, RDW 19.0 H, Plt Count 193, MPV 9.9, Gran % 73.5 H, Lymph % ( Auto) 16.9 L, Grand % (Auto) 7.6 H, Eos % (Auto) 2.0, Baso % (Auto) 0.0, Gran # 2.22, Lymph # 0.5 L, Grand # 0.2, Eos # 0.1, Baso # 0.00, pO2 57 H, VBG pH 7.30 L , VBG pCO2 50.0, VBG HCO3 24.6, VBG Total CO2 26.1, VBG O2 Sat (Calc) 91.5 H, VBG Base Excess -2.4 L, VBG Potassium 10.6 H*, Glucose 114 H, Lactate 2.5 H, FiO2 21.0, Sodium 136.0, Potassium 3.9, Chloride 111.0 H, Carbon Dioxide 23, Anion Gap 15, BUN 23 H, Creatinine 1.0, Est GFR ( Amer) > 60, Est GFR ( Non-Af Amer) > 60, Random Glucose 108, Calcium 9.1, Total Bilirubin 0.7, AST 28 , ALT 33, Alkaline Phosphatase 93, Total Protein 7.8, Albumin 4.0, Globulin 3.8 , Albumin/Globulin Ratio 1.1, Venous Blood Potassium 10.6 H* - Medication Orders Current Medication Orders: Discontinued Medications Albuterol/Ipratropium (Duoneb 3 Mg/0.5 Mg (3 Ml) Ud) 3 ml IH STAT STA Stop: 07/24/16 12:39 Last Admin: 07/24/16 13:40 Dose: 3 ML Albuterol/Ipratropium (Duoneb 3 Mg/0.5 Mg (3 Ml) Ud) 3 ml IH STAT STA Stop: 07/24/16 14:35 Last Admin: 07/24/16 14:52 Dose: 3 ML Sodium Chloride (Sodium Chloride 0.9%) 1,000 mls @ 999 mls/hr IV .Q1H1M STA Stop: 07/24/16 10:02 Last Admin: 07/24/16 09:39 Dose: 999 MLS/HR eMAR Start Stop Document 07/24/16 09:39 [facility] (Rec: 07/24/16 09:39 [facility] [id number]) Intravenous Solution Start Date 07/24/16 Start Time 09:39 End Date 07/24/16 End time 10:39 Total Infusion Time 60 Sodium Chloride (Sodium Chloride 0.9%) 1,000 mls @ 999 mls/hr IV .Q1H1M STA Stop: 07/24/16 11:03 Last Admin: 07/24/16 12:27 Dose: 999 MLS/HR eMAR Start Stop Document 07/24/16 12:27 [facility] (Rec: 07/24/16 12:27 [id number] Intravenous Solution Start Date 07/24/16 Start Time 12:27 Metronidazole (Flagyl) 500 mg PO STAT STA PRN Reason: Protocol Stop: 07/24/16 09:10 Last Admin: 07/24/16 09:38 Dose: 500 MG Ondansetron HCl (Zofran Inj) 4 mg IVP STAT STA Stop: 07/24/16 09:51 Last Admin: 07/24/16 10:13 Dose: 4 MG IVP Administration Document 07/24/16 10:13 [facility] (Rec: 07/24/16 10:13 [place] [id number]) Charges for Administration # of IVP Administrations 1 Disposition/Present on Arrival - Present on Arrival Any Indicators Present on Arrival: No History of DVT/PE: No History of Uncontrolled Diabetes: No Urinary Catheter: No History of Decub. Ulcer: No History Surgical Site Infection Following: Orthopedic Procedures - Disposition Have Diagnosis and Disposition been Completed?: Yes Disposition Time: 10:06 Patient Plan: Observation - Disposition Diagnosis: C. difficile diarrhea, Abdominal pain Disposition: HOME/ ROUTINE Patient Problems: Current Active Problems Problem Status Diagnosed Abdominal pain Acute Anemia Acute C. difficile diarrhea Acute Chest pain Acute Chest pain Acute Chronic respiratory failure Acute Dehydration Acute Exacerbation of asthma Acute Heroin abuse Acute Insomnia Acute Positive blood culture Acute Respiratory distress Acute Transaminitis Acute COPD, frequent exacerbations Chronic Diabetes mellitus type 2 in nonobese Chronic HIV (human immunodeficiency virus infection) Chronic IDDM (insulin dependent diabetes mellitus) Chronic Anxiety Chronic CHF (congestive heart failure) Chronic Drug abuse and dependence Chronic HIV antibody positive Chronic History of hepatitis C Chronic Non compliance with medical treatment Chronic Non-adherence to medical treatment Chronic Substance abuse or dependence Chronic Bronchitis Suspected Chronic alcoholic pancreatitis Suspected Dyspnea on exertion Resolved Diarrhea Resolved Condition: STABLE
[2016-07-24 09:36] LABS: ALB/GLOB RATIO 1.1 (1.1-1.8); ALKALINE PHOSPHATASE 93 U/L (38-133); ALT/SGPT 33 U/L (7-56); AST/SGOT 28 U/L (15-59); BILIRUBIN,TOTAL 0.7 mg/dL (0.2-1.3); BLOOD UREA NITROGEN 23 mg/dL (7-21); CALCIUM 9.1 mg/dL (8.4-10.5); CARBON DIOXIDE 23 mmol/L (21-33); CHLORIDE 109 mmol/L (98-107); GFR AFRICAN-AMERICAN > 60; GLUCOSE,RANDOM 108 mg/dL (70-110); POTASSIUM 3.9 mmol/L (3.6-5.0); SODIUM 143 mmol/L (132-148); TOTAL PROTEIN 7.8 g/dL (5.8-8.3)
[2016-07-24 11:11] VITALS: RESP 18
[2016-07-24] MEDS ORDERED: Albuterol-Ipratrop 3 mg / 0.5 (3 ml) UD IH STA ×2 (12:38→14:34)
[2016-07-24 13:08] VITALS: BP 114/69; PULSE 89
[2016-07-24 14:00] LABS: VENOUS BLOOD GAS BASE EXCESS -0.2 mmol/L (0.0-2.0); VENOUS BLOOD PH 7.37 (7.32-7.43)
== END 2016-07-24 14:12 | disposition home or self-care (01) ==
LOC: ED 08:07 → EROBSV 10:02
PROVIDERS: ADMIT Emergency Medicine; ATTEND Emergency Medicine
DX: A04.7 Enterocolitis due to Clostridium difficile (principal); R10.9 Unspecified abdominal pain
CPT/HCPCS: 80053; 82803; 85025; 96361; 96374; 99284; G0378; J2405; J7040

== ENCOUNTER 2016-08-16 00:31 | Observation (INO) | payer MEDICARE, MEDICAID ==
[2016-08-16 00:38] VITALS: BMI 25.9
--- NOTE | 2016-08-16 00:57 | ED PDOC ---
Arrival/HPI - General Chief Complaint: Shortness Of Breath Time Seen by Provider: 08/16/16 00:32 Historian: Patient - History of Present Illness Narrative History of Present Illness (Text): 08/16/16 00:49 Charly Gao is a 61 year old male, whose past medical history includes COPD, HIV on HAART, Hepatitis C, hypertension, pancreatitis, chronic back pain, osteomyelitis, and diabetes, who presents to the ED brought in by EMS complaining of complaining of shortness of breath. Patient states he was recently [place] [facility] [place] similar complaints. Patient states shortness of breath returned tonight with occasional cough. Patient denies any fever, chills, chest pain, nausea, vomiting, diarrhea, urinary symptoms, back pain, neck pain, headache, dizziness, or any other complaints. Time/Duration: Other (today) Symptom Onset: Gradual Symptom Course: Unchanged Activities at Onset: Rest, Light Context: Home Past Medical History - Provider Review Nursing Documentation Reviewed: Yes - Infectious Disease Hx of Infectious Diseases: None - Tetanus Immunization Tetanus Immunization: Unknown - Cardiac Hx Hypertension: Yes - Pulmonary Hx Chronic Obstructive Pulmonary Disease (COPD): Yes (on O2 via NC @ 2lpm) Hx Emphysema: Yes - Neurological Hx Neurological Disorder: No - HEENT Hx HEENT Disorder: No - Renal Hx Renal Disorder: No - Endocrine/Metabolic Hx Diabetes Mellitus Type 1: Yes Hx Diabetes Mellitus Type 2: Yes - Hematological/Oncological Hx Hepatitis C: Yes - Integumentary Hx Dermatological Disorder: No - Musculoskeletal/Rheumatological Hx Falls: No - Gastrointestinal Hx Pancreatitis: Yes - Genitourinary/Gynecological Hx Genitourinary Disorders: No - Psychiatric Hx Psychophysiologic Disorder: No Hx Substance Use: No (denies) - Surgical History Hx Orthopedic Surgery: Yes (RT KNEE) - Anesthesia Hx Anesthesia: Yes Hx Anesthesia Reactions: No Hx Malignant Hyperthermia: No - Suicidal Assessment Feels Threatened In Home Enviroment: No Family/Social History - Physician Review Nursing Documentation Reviewed: Yes Family/Social History: No Known Family HX Smoking Status: Former Smoker Hx Alcohol Use: No Hx Substance Use: No (denies) Substance used: heroine Allergies/Home Meds Allergies/Adverse Reactions: Allergies No Known Allergies Allergy (Verified 07/24/16 08:16) Review of Systems - Physician Review All systems were reviewed & negative as marked: Yes - Review of Systems Constitutional: Normal. absent: Fevers Eyes: Normal ENT: Normal Respiratory: SOB, Cough Cardiovascular: Normal. absent: Chest Pain Gastrointestinal: Normal. absent: Abdominal Pain, Diarrhea, Nausea, Vomiting Genitourinary Male: Normal. absent: Dysuria, Frequency, Hematuria, Urinary Output Changes Musculoskeletal: Normal. absent: Back Pain, Neck Pain Skin: Normal. absent: Rash Neurological: Normal. absent: Headache, Dizziness Endocrine: Normal Hemo/Lymphatic: Normal Psychiatric: Normal Physical Exam Vital Signs Reviewed: Yes Vital Signs Temp Pulse Resp BP Pulse Ox 08/16/16 00:58 98.6 F 113 H 15 104/65 91 L Temperature: Afebrile Blood Pressure: Normal Pulse: Regular Respiratory Rate: Normal Appearance: Positive for: Well-Appearing, Non-Toxic, Comfortable Pain Distress: None Mental Status: Positive for: Alert and Oriented X 3 - Systems Exam Head: Present: Atraumatic, Normocephalic Pupils: Present: PERRL Extroacular Muscles: Present: EOMI Conjunctiva: Present: Normal Mouth: Present: Moist Mucous Membranes Neck: Present: Normal Range of Motion Respiratory/Chest: Present: Decreased Breath Sounds (Decreased breath sounds bilaterally), Rhonchi. No: Respiratory Distress, Accessory Muscle Use Cardiovascular: Present: Regular Rate and Rhythm, Normal S1, S2. No: Murmurs Abdomen: Present: Normal Bowel Sounds. No: Tenderness, Distention, Peritoneal Signs Back: Present: Normal Inspection Upper Extremity: Present: Normal Inspection. No: Cyanosis, Edema Lower Extremity: Present: Normal Inspection. No: Edema Neurological: Present: GCS=15, CN II-XII Intact, Speech Normal Skin: Present: Warm, Dry, Normal Color. No: Rashes Psychiatric: Present: Alert, Oriented x 3, Normal Insight, Normal Concentration Medical Decision Making ED Course and Treatment: 08/16/16 00:49 Impression: 61 year old male complaining of shortness of breath and occasional cough today. Differential Diagnosis include but are not limited to: COPD exacerabation vs. ACS vs. pneumonia vs. CHF Plan: -- EKG -- CXR -- Labs, cardiac enzymes, BNP -- Duoneb -- Solu-medrol -- Reassess and disposition Prior Visits: Notes and results from previous visits were reviewed. Progress Notes: Reviewed EKG, NSR at [address]-segment elevations or depressions, no T- wave inversions, normal intervals. 08/16/16 01:37 Chest X-ray shows no active disease. 08/16/16 02:31 Case discussed with veterinary medical officer rn neonatal, who is aware and agrees with plan. House physician notified. 08/16/16 02:[address] Arlin Albarran, who is aware and agrees with plan. Accepts pt in to hospitalist service. Pt will go to [facility] observation for COPD exacerbation. - Lab Interpretations Lab Results: 08/16/16 01:55 08/16/16 01:55 Lab Results 08/16/16 01:55: WBC 7.7 D, RBC 4.13, Hgb 12.2 L, Hct 36.8 L, MCV 89.1, MCH 29.5 , MCHC 33.2, RDW 16.8 H, Plt Count 184, MPV 10.0 08/16/16 01:55: Sodium 139, Potassium 4.2, Chloride 102, Carbon Dioxide 24, Anion Gap 17, BUN 28 H, Creatinine 1.1, Est GFR ( Amer) > 60, Est GFR ( Non-Af Amer) > 60, Random Glucose 265 H, Calcium 8.9, Total Bilirubin 0.7, AST 27, ALT 23, Alkaline Phosphatase 63, Lactate Dehydrogenase 638, Total Creatine Kinase 65, Troponin I < 0.01, NT-Pro-B Natriuret Pep 205, Total Protein 7.7, Albumin 3.8, Globulin 3.9, Albumin/Globulin Ratio 1.0 L 08/16/16 01:55: PT 10.7, INR 0.99, APTT 24.7 I have reviewed the lab results: Yes - RAD Interpretation Radiology Orders: 08/16/16 00:52 CHEST PORTABLE [RAD] Stat Power Electronics Engineer: ED Physician - EKG Interpretation Interpreted by ED Physician: Yes Type: 12 lead EKG - Medication Orders Current Medication Orders: Discontinued Medications Albuterol/Ipratropium (Duoneb 3 Mg/0.5 Mg (3 Ml) Ud) 3 ml IH ONCE STA Stop: 08/16/16 01:38 Last Admin: 08/16/16 02:38 Dose: 3 ml Albuterol/Ipratropium (Duoneb 3 Mg/0.5 Mg (3 Ml) Ud) 3 ml IH ONCE STA Stop: 08/16/16 02:31 Methylprednisolone (Solu-Medrol) 125 mg IVP ONCE ONE Stop: 08/16/16 01:38 Last Admin: 08/16/16 02:38 Dose: 125 mg - Jassonibe Statement The provider has reviewed the documentation as recorded by the Temo Buckley Provider Attestation: All medical record entries made by the Temo were at my direction and personally dictated by me. I have reviewed the chart and agree that the record accurately reflects my personal performance of the history, physical exam, medical decision making, and the department course for this patient. I have also personally directed, reviewed, and agree with the discharge instructions and disposition. Disposition/Present on Arrival - Present on Arrival Any Indicators Present on Arrival: No History of DVT/PE: No History of Uncontrolled Diabetes: No Urinary Catheter: No History of Decub. Ulcer: No History Surgical Site Infection Following: Orthopedic Procedures - Disposition Have Diagnosis and Disposition been Completed?: Yes Diagnosis: COPD exacerbation Disposition: HOSPITALIZED Disposition Time: 02:41 Patient Plan: Observation Condition: STABLE Referrals: Olimpia Lee MD [Primary Care Provider] - Follow up with primary
[2016-08-16] MEDS ORDERED: Albuterol-Ipratrop 3 mg / 0.5 (3 ml) UD IH STA ×3 (01:37→03:20)
[2016-08-16 02:07] LABS: HEMATOCRIT 36.8 % (42.0-52.0); MEAN CELL VOLUME 89.1 fL (80.0-105.0); MEAN CORPUSCULAR HEMOGLOBIN 29.5 pg (25.0-35.0); MEAN CORPUSCULAR HGB CONC 33.2 g/dl (31.0-37.0); RED CELL DISTRIBUTION WIDTH 16.8 % (11.5-14.5); WHITE BLOOD COUNT 7.7 10^3/ul (4.5-11.0)
[2016-08-16 02:13] LABS: ALKALINE PHOSPHATASE 63 U/L (38-133); ALT/SGPT 23 U/L (7-56); AST/SGOT 27 U/L (15-59); BILIRUBIN,TOTAL 0.7 mg/dL (0.2-1.3); BLOOD UREA NITROGEN 28 mg/dL (7-21); CALCIUM 8.9 mg/dL (8.4-10.5); CARBON DIOXIDE 24 mmol/L (21-33); CHLORIDE 102 mmol/L (98-107); GFR AFRICAN-AMERICAN > 60; GLUCOSE,RANDOM 265 mg/dL (70-110); SODIUM 139 mmol/L (132-148); TOTAL PROTEIN 7.7 g/dL (5.8-8.3)
[2016-08-16 02:14] LABS: INR 0.99 (0.93-1.08); PARTIAL THROMBOPLASTIN TIME 24.7 Seconds (23.7-30.8); POTASSIUM 4.2 mmol/L (3.6-5.0)
[2016-08-16 02:26] LABS: TROPONIN I < 0.01 ng/mL
[2016-08-16] MEDS ORDERED: Albuterol 0.042% Inhal Sol (1.25 mg/3 mL) UD IH PRN (03:05)
--- NOTE | 2016-08-16 04:56 | CP.PCM.HP ---
History of Present Illness - History of Present Illness History of Present Illness: CC: "Shortness of breath" HPI: Pt is a 61 year old -[place] male with a PMHx of HIV on HAART therapy, IV heroin abuse, Diabetes Mellitus, Hepatitis C, COPD, HTN, and chronic osteomyelitis who presents to the ED with complaints of shortness of breath and coughing. Pt is a frequent visitor [place] [facility] Pt states that he was just discharged earlier today from [facility] where he was hospitalized for similar symptoms. He reports that he does not feel that he has improved, and he is still short of breath and coughing. Pt also reports that he has a headache. Pt reports that he has not used heroin recently. He denies fever , chills, chest pain, nausea, vomiting. PMHx: IV on HAART therapy, IV heroin abuse, Hepatitis C, COPD, HTN, and chronic osteomyelitis Home medications: as per MAR Past Surgical Hx: denies Allergies: NKDA Social Hx: reports that he smokes 1 pack of cigarettes/day, denies alcohol use, reports past history of IV heroin abuse Family Hx: Diabetes Mellitus Present on Admission - Present on Admission Any Indicators Present on Admission: Yes History of Uncontrolled Diabetes: Yes Review of Systems - Constitutional Constitutional: absent: Chills, Fever - EENT Eyes: absent: Blurred Vision, Change in Vision Nose/Mouth/Throat: absent: Nasal Congestion - Cardiovascular Cardiovascular: Dyspnea. absent: Chest Pain, Chest Pain at Rest, Leg Edema - Respiratory Respiratory: Cough, Dyspnea, Wheezing. absent: Hemoptysis - Gastrointestinal Gastrointestinal: absent: Abdominal Pain, Nausea, Vomiting - Musculoskeletal Musculoskeletal: Abnormal Gait - Neurological Neurological: Headaches - Psychiatric Psychiatric: absent: Anxiety Past Patient History - Infectious Disease Hx of Infectious Diseases: None - Tetanus Immunizations Tetanus Immunization: Unknown - Past Medical History & Family History Past Medical History?: Yes - Past Social History Smoking Status: Former Smoker - CARDIAC Hx Hypertension: Yes - PULMONARY Hx Chronic Obstructive Pulmonary Disease (COPD): Yes (on O2 via NC @ 2lpm) Hx Emphysema: Yes - NEUROLOGICAL Hx Neurological Disorder: No - HEENT Hx HEENT Problems: No - RENAL Hx Chronic Kidney Disease: No - ENDOCRINE/METABOLIC Hx Diabetes Mellitus Type 1: Yes Hx Diabetes Mellitus Type 2: Yes - HEMATOLOGICAL/ONCOLOGICAL Hx Hepatitis C: Yes - INTEGUMENTARY Hx Dermatological Problems: No - MUSCULOSKELETAL/RHEUMATOLOGICAL Hx Falls: No - GASTROINTESTINAL Hx Pancreatitis: Yes - GENITOURINARY/GYNECOLOGICAL Hx Genitourinary Disorders: No - PSYCHIATRIC Hx Psychophysiologic Disorder: No Hx Substance Use: No (denies) - SURGICAL HISTORY Hx Orthopedic Surgery: Yes (RT KNEE) - ANESTHESIA Hx Anesthesia: Yes Hx Anesthesia Reactions: No Hx Malignant Hyperthermia: No Meds Allergies/Adverse Reactions: Allergies Allergy/AdvReac Type Severity Reaction Status Date / Time No Known Allergies Allergy Verified 07/24/16 08:16 Physical Exam - Constitutional Appears: No Acute Distress, Unkempt, Combative - Eye Exam Eye Exam: EOMI, PERRL - ENT Exam ENT Exam: Mucous Membranes Moist. absent: Mucous Membranes Dry - Neck Exam Neck exam: Positive for: Normal Inspection - Respiratory Exam Respiratory Exam: Wheezes - Cardiovascular Exam Cardiovascular Exam: +S1, +S2. absent: Gallop, Rubs - GI/Abdominal Exam GI & Abdominal Exam: Normal Bowel Sounds, Soft. absent: Tenderness - Extremities Exam Extremities exam: Positive for: full ROM. Negative for: pedal edema - Neurological Exam Neurological exam: Alert, Oriented x3 - Psychiatric Exam Psychiatric exam: Normal Affect, Normal Mood - Skin Skin Exam: Normal Color, Warm Results - Vital Signs Recent Vital Signs: Last Vital Signs Temp 107 F H 08/16/16 04:05 Pulse 105 H 08/16/16 04:05 Resp 16 08/16/16 04:05 BP 118/87 08/16/16 04:05 Pulse Ox 100 08/16/16 04:05 - Labs Result Diagrams: 08/16/16 01:55 08/16/16 01:55 Assessment & Plan - Assessment and Plan (Free Text) Assessment: COPD Exacerbation: EKG - NSR, tachycardic Afebrile, tachycardic at 110 bpm Duonebs q6h deep Duonebs q3h prn Azithromycin 250 mg po qd Brovana 15 mcg IH q12h Pulmicort 0.5 mg IH q12h Solumedrol 20 mg IV q12h HIV: Ziagen 300 mg po bid Raltegravir 400 mg po bid Mepron 750 mg po bid HTN: Norvasc 5 mg po qd Lasix 20 mg po qd Aldactone 25 mg po qd Diabetes Mellitus: Insulin sliding scale Accuchecks achs Diabetic Neuropathy: Neurontin 300 mg po tid Dehydration: BUN/Cr - 28/1.1 NS IVF 100 cc/hr Prophylactic Measures: DVT: Heparin 5000 units sc q12h, SCDs GI: Protonix 40 mg po qd
[2016-08-16] MEDS ORDERED: Albuterol-Ipratrop 3 mg / 0.5 (3 ml) UD IH PRN (05:04)
[2016-08-16] MEDS: Sodium Chloride 0.9% 1,000 ML IV SCH (06:19)
[2016-08-16] MEDS ORDERED: Arformoterol 15 mcg/2 ml Inh Sol IH SCH (08:00)
[2016-08-16] MEDS: Insulin Regular 1 UNITS/0.01 ML ML SC SCH ×4 (08:51→22:49)
[2016-08-16] MEDS: Albuterol-Ipratrop 3 mg / 0.5 (3 ml) UD IH SCH ×3 (08:54→21:15)
[2016-08-16] MEDS: Budesonide 0.5 mg/2 ml Inhal Susp UD IH SCH ×2 (08:54→21:15)
[2016-08-16] MEDS: Insulin Detemir 100 units/ml Vial (Levemir) SC SCH ×2 (08:59→17:50)
[2016-08-16] MEDS: Non Formulary Medication (Calcium Carbonate/Vitamin D3 [Calcium 600 + Vit D Tablet] 1 TAB) PO SCH ×2 (09:02→13:14)
[2016-08-16] MEDS: MethylPREDNISolone 40 mg Vial IV SCH ×2 (10:17→22:50)
[2016-08-16] MEDS: Atovaquone 750 mg/5 ml Susp UD PO SCH ×2 (10:18→17:51)
[2016-08-16] MEDS: Multivitamin Therapeutic Tab PO SCH (10:19)
[2016-08-16] MEDS: Lactobacillus Acidophilus 500 MU Cap PO SCH ×2 (10:20→17:51)
[2016-08-16] MEDS ORDERED: guaiFENesin 200 mg/10 ml Syrup UD PO PRN (11:10)
[2016-08-16] MEDS: Oxycodone/Acetaminophen 5/325 mg Tab PO PRN ×2 (12:01→17:50)
--- NOTE | 2016-08-16 13:30 | CARD ---
APPROVED REPORT EKG Measurement Heart [id number] <Conclusion> Normal sinus rhythm Normal ECG
--- NOTE | 2016-08-16 16:51 | RAD ---
HISTORY: sob COMPARISON: 07/21/2016 FINDINGS: LUNGS: Mild bibasilar atelectasis left greater than right PLEURA: No significant pleural effusion identified, no pneumothorax apparent. CARDIOVASCULAR: Normal. OSSEOUS STRUCTURES: No significant abnormalities. VISUALIZED UPPER ABDOMEN: Normal. OTHER FINDINGS: None. IMPRESSION: No active disease.
--- NOTE | 2016-08-16 18:26 | CP.PCM.PN ---
Subjective - Date & Time of Evaluation Date of Evaluation: 08/16/16 Time of Evaluation: 18:20 - Subjective Subjective: Patient has very poor veins ,needs iv access. Objective - Vital Signs/Intake and Output Vital Signs (last 24 hours): Temp Pulse Resp BP Pulse Ox 98.6 F 93 H 22 116/78 99 08/16/16 16:00 08/16/16 16:00 08/16/16 16:00 08/16/16 16:00 08/16/16 16:00 - Medications Medications: Current Medications Abacavir Sulfate (Ziagen) 300 mg PO BID [facility] Last Admin: 08/16/16 17:55 Dose: 300 mg Albuterol/Ipratropium (Duoneb 3 Mg/0.5 Mg (3 Ml) Ud) 3 ml IH [id number] [facility] Last Admin: 08/16/16 13:06 Dose: 3 ml Albuterol/Ipratropium (Duoneb 3 Mg/0.5 Mg (3 Ml) Ud) 3 ml IH Q2H PRN PRN Reason: Shortness of Breath Amlodipine Besylate (Norvasc) 5 mg PO DAILY [facility] Last Admin: 08/16/16 10:20 Dose: 5 mg Atovaquone (Mepron) 750 mg PO BID [facility] Last Admin: 08/16/16 17:51 Dose: 750 mg Azithromycin (Zithromax) 250 mg PO DAILY [facility] PRN Reason: Protocol Last Admin: 08/16/16 10:19 Dose: 250 mg Budesonide (Pulmicort Respules) 0.5 mg IH [id number] [facility] Last Admin: 08/16/16 08:54 Dose: 0.5 mg Furosemide (Lasix) 20 mg PO DAILY [facility] Last Admin: 08/16/16 10:20 Dose: 20 mg Gabapentin (Neurontin) 300 mg PO TID [facility] PRN Reason: Protocol Last Admin: 08/16/16 17:51 Dose: 300 mg Guaifenesin (Robitussin) 200 mg PO Q4H PRN PRN Reason: Cough and congestion Last Admin: 08/16/16 12:01 Dose: 200 mg Heparin Sodium (Porcine) (Heparin) 5,000 units SC Q8 AMA[facility] PRN Reason: Protocol Last Admin: 08/16/16 14:31 Dose: Not Given Sodium Chloride (Sodium Chloride 0.9%) 1,000 mls @ 100 mls/hr IV .Q10H [facility] Last Admin: 08/16/16 06:19 Dose: 100 mls/hr Insulin Detemir (Levemir) 10 unit SC BID [facility] Last Admin: 08/16/16 17:50 Dose: 10 unit Insulin Human Regular (Humulin R) 0 units SC ACHS [facility] PRN Reason: Protocol Last Admin: 08/16/16 16:51 Dose: 3 units Lactobacillus Acidophilus (Bacid Acidophilus) 1 cap PO BID [facility] Last Admin: 08/16/16 17:51 Dose: 1 cap Losartan Potassium (Cozaar) 25 mg PO DAILY [facility] Last Admin: 08/16/16 10:20 Dose: 25 mg Methylprednisolone (Solu-Medrol) 20 mg IV Q12 [facility] Last Admin: 08/16/16 10:17 Dose: 20 mg Multivitamins (Thera Tab) 1 tab PO DAILY [facility] Last Admin: 08/16/16 10:19 Dose: 1 tab Nicotine (Nicoderm Cq) 1 patch TD DAILY [facility] Last Admin: 08/16/16 10:28 Dose: Not Given Non-Formulary Medication (Calcium Carbonate/Vitamin D3 [Calcium 600 + Vit D Tablet]) 1 tab PO ACBL [facility] Last Admin: 08/16/16 13:14 Dose: Not Given Oxycodone/Acetaminophen (Percocet 5/325 Mg Tab) 1 tab PO Q6H PRN PRN Reason: Pain, moderate (4-7) Stop: 08/19/16 11:43 Last Admin: 08/16/16 17:50 Dose: 1 tab Raltegravir (Isentress) 400 mg PO BID [facility] Last Admin: 08/16/16 17:51 Dose: 400 mg Spironolactone (Aldactone) 25 mg PO DAILY [facility] Last Admin: 08/16/16 10:22 Dose: 25 mg - Labs Labs: PT 10.7 Seconds (9.9-11.8) 08/16/16 01:55 INR 0.99 (0.93-1.08) 08/16/16 01:55 APTT 24.9 Seconds (23.7-30.8) 08/16/16 09:00 - Constitutional Appears: No Acute Distress Assessment and Plan - Assessment and Plan (Free Text) Assessment: Poor venous access Plan: Hep lock inserted in the L wrist region. #24 angiocath used.
--- NOTE | 2016-08-16 23:13 | CON ---
DATE: 08/16/2016 REFERRING PHYSICIAN: Dr. George. REASON FOR CONSULT: Cough, shortness of breath, chronic obstructive lung disease. HISTORY OF PRESENT ILLNESS: This is a 61-year-old gentleman who is known HIV positive, chronic obstr uctive lung disease, hypertension, history of hepatitis C, diabetes, history of IV drug abuse, uses h eroin, presented to Emergency Room with cough, shortness of breath. He just left [facility] earlier today. Complaining about cough and shortness breath. No nausea, no vomiting, no diarrhea, no leg pain, no leg swelling. PAST MEDICAL HISTORY: HIV positive, heroin abuser, chronic obstructive lung disease, hepatitis C, hy pertension, renal insufficiency, osteomyelitis. ALLERGIES: None known. SOCIAL HISTORY: Active smoker. Denies any alcohol use. FAMILY HISTORY: Positive for hypertension, diabetes. ALLERGIES: None known. MEDICATIONS: The patient is on Aldactone 25 mg daily, lactobacillus 1 capsule twice a day, multivita mins daily, Cozaar 25 mg daily, DuoNeb q. 12 hours p.r.n. and q. 6 hours around the clock, Heparin 50 00 units subQ q. 8 hours, insulin coverage, Isentress 400 mg twice a day, Lasix 20 mg daily, Levemir 10 units subQ twice a day, Mepron 750 mg twice a day, Neurontin 300 mg 3 times a day, Nicoderm patch daily, Norvasc 10 mg daily, Percocet 5/325 one tab q. 6 hours p.r.n., Robitussin 200 mg q. 4 hours, I V fluids, normal saline 100 mL per hour, Solu-Medrol 20 mg q. 12 hours, multivitamins daily, Ziagen 3 00 mg twice a day, Zithromax 250 mg daily. REVIEW OF SYSTEMS: No headache, no rhinitis. Has cough, shortness of breath. No chest pain, no [place], no vomiting, no diarrhea. No dysuria. No leg pain or leg swelling. PHYSICAL EXAMINATION: GENERAL: Lying in the bed in no acute distress. VITAL SIGNS: Temp is 98, heart rate 93, respiratory rate 20, blood pressure 115/78, pulse ox 99% on room air. HEENT: Moist mucous membrane. No ulcer or oral thrush noted. NECK: Supple. No JVD. LUNGS: Has a prolonged expiratory phase with wheezing. HEART: S1 and S2. ABDOMEN: Soft, nontender. No organomegaly. EXTREMITIES: There is no edema. NEUROLOGIC: Awake, alert, follows simple commands. MEDICATIONS: He is on Pulmicort inhaled twice a day, Robitussin 200 mg q. 4 hours, IV fluid normal s casper 100 mL per hour, Solu-Medrol 20 mg q. 12 hours, multivitamins, Ziagen and Zithromax . LABORATORY DATA: Shows hemoglobin 12.2, hematocrit 36.8, WBC 7.7, and platelet is 184. INR of 0.9, PTT is 25. Sodium 139, potassium 4.2, chloride 102, bicarbonate 24, BUN 28, creatinine 1.1, glucose 265, calcium 8.9, AST 27, ALT 23, alkaline phosphatase is 63. Troponin less than 0.01. ProBNP 205. Chest x-ray done on admission shows no infiltrate or effusion. IMPRESSION AND PLAN: Chronic obstructive lung disease, history of substance abuse, human immunodefic iency virus positive, diabetes, hypertension, history of pancreatitis, degenerative joint disease of the C-spine, degenerative changes. Pulmonary point of view, I agree with continue IV antibiotics, IV Solu-Medrol, gastric prophylaxis, DVT prophylaxis. The patient is urged to stop smoking. Outpatien t attended sleep study. Also, need PFT. Thank you and we will follow with you. Ventura Browning MD cc: [id number] TT: 08/16/2016 23:13:25 Confirmation # [id number] Dictation # [id number]
[2016-08-17] MEDS: Oxycodone/Acetaminophen 5/325 mg Tab PO PRN ×3 (00:38→18:41)
[2016-08-17] MEDS: Albuterol-Ipratrop 3 mg / 0.5 (3 ml) UD IH SCH ×4 (02:20→19:42)
[2016-08-17] MEDS: Sodium Chloride 0.9% 1,000 ML IV SCH (05:18)
[2016-08-17 06:48] LABS: ADD MANUAL DIFF? NO
[2016-08-17 07:09] LABS: GRAN # 5.74 (1.4-6.5); GRAN % 85.8 % (50.0-68.0); HEMATOCRIT 32.7 % (42.0-52.0); LYMPH # 0.7 (1.2-3.4); LYMPH % 9.7 % (22.0-35.0); MEAN CORPUSCULAR HGB CONC 33.3 g/dl (31.0-37.0); MONO # 0.3 (0.1-0.6); MONO % 4.5 % (1.0-6.0); PLATELET COUNT 178 10^3/uL (120.0-450.0); RED CELL DISTRIBUTION WIDTH 16.4 % (11.5-14.5); WHITE BLOOD COUNT 6.7 10^3/ul (4.5-11.0)
[2016-08-17 07:14] LABS: ALB/GLOB RATIO 0.9 (1.1-1.8); ALKALINE PHOSPHATASE 59 U/L (38-133); ALT/SGPT 29 U/L (7-56); AST/SGOT 18 U/L (15-59); BILIRUBIN,TOTAL 0.5 mg/dL (0.2-1.3); BLOOD UREA NITROGEN 23 mg/dL (7-21); CALCIUM 8.8 mg/dL (8.4-10.5); CARBON DIOXIDE 28 mmol/L (21-33); CHLORIDE 102 mmol/L (98-107); GFR AFRICAN-AMERICAN > 60; GLUCOSE,RANDOM 280 mg/dL (70-110); POTASSIUM 4.1 mmol/L (3.6-5.0); SODIUM 137 mmol/L (132-148); TOTAL PROTEIN 6.8 g/dL (5.8-8.3)
[2016-08-17] MEDS: Non Formulary Medication (Calcium Carbonate/Vitamin D3 [Calcium 600 + Vit D Tablet] 1 TAB) PO SCH ×2 (07:14→12:14)
[2016-08-17] MEDS: Budesonide 0.5 mg/2 ml Inhal Susp UD IH SCH ×2 (08:56→19:43)
--- NOTE | 2016-08-17 10:05 | CP.PCM.PN ---
<Callum Arthur - Last Filed: 08/17/16 14:59> Subjective - Date & Time of Evaluation Date of Evaluation: 08/17/16 Time of Evaluation: 09:30 - Subjective Subjective: Dr. Arthur PGY 1 Hospitalist Note Patient seen and evaluated at bedside with attending physician. He complains of SOB and wheeze but is able to speak in full sentences without pauses. He complains that he is not getting more antibiotics and says he was discharged from [facility] too early. He is amenable to the idea of getting physical therapy. Per nursing, no adverse events over night. Objective - Vital Signs/Intake and Output Vital Signs (last 24 hours): Temp Pulse Resp BP Pulse Ox 98.4 F 68 18 143/87 98 08/17/16 07:27 08/17/16 07:27 08/17/16 07:27 08/17/16 07:27 08/17/16 07:27 - Medications Medications: Current Medications Abacavir Sulfate (Ziagen) 300 mg PO BID [facility] Last Admin: 08/16/16 17:55 Dose: 300 mg Albuterol/Ipratropium (Duoneb 3 Mg/0.5 Mg (3 Ml) Ud) 3 ml IH [id number] [facility] Last Admin: 08/17/16 08:00 Dose: 3 ml Albuterol/Ipratropium (Duoneb 3 Mg/0.5 Mg (3 Ml) Ud) 3 ml IH Q2H PRN PRN Reason: Shortness of Breath Amlodipine Besylate (Norvasc) 5 mg PO DAILY [facility] Last Admin: 08/16/16 10:20 Dose: 5 mg Atovaquone (Mepron) 750 mg PO BID [facility] Last Admin: 08/16/16 17:51 Dose: 750 mg Azithromycin (Zithromax) 250 mg PO DAILY [facility] PRN Reason: Protocol Last Admin: 08/16/16 10:19 Dose: 250 mg Budesonide (Pulmicort Respules) 0.5 mg IH [id number] [facility] Last Admin: 08/17/16 08:56 Dose: 0.5 mg Furosemide (Lasix) 20 mg PO DAILY [facility] Last Admin: 08/16/16 10:20 Dose: 20 mg Gabapentin (Neurontin) 300 mg PO TID [facility] PRN Reason: Protocol Last Admin: 08/16/16 17:51 Dose: 300 mg Guaifenesin (Robitussin) 200 mg PO Q4H PRN PRN Reason: Cough and congestion Last Admin: 08/16/16 12:01 Dose: 200 mg Heparin Sodium (Porcine) (Heparin) 5,000 units SC Q8 [facility] PRN Reason: Protocol Last Admin: 08/17/16 06:40 Dose: Not Given Sodium Chloride (Sodium Chloride 0.9%) 1,000 mls @ 100 mls/hr IV .Q10H [facility] Last Admin: 08/17/16 05:18 Dose: 100 mls/hr Insulin Detemir (Levemir) 10 unit SC BID [facility] Last Admin: 08/16/16 17:50 Dose: 10 unit Insulin Human Regular (Humulin R) 0 units SC ACHS [facility] PRN Reason: Protocol Last Admin: 08/16/16 22:49 Dose: 2 units Lactobacillus Acidophilus (Bacid Acidophilus) 1 cap PO BID [facility] Last Admin: 08/16/16 17:51 Dose: 1 cap Losartan Potassium (Cozaar) 25 mg PO DAILY [facility] Last Admin: 08/16/16 10:20 Dose: 25 mg Methylprednisolone (Solu-Medrol) 20 mg IV Q12 [facility] Last Admin: 08/16/16 22:50 Dose: 20 mg Multivitamins (Thera Tab) 1 tab PO DAILY [facility] Last Admin: 08/16/16 10:19 Dose: 1 tab Nicotine (Nicoderm Cq) 1 patch TD DAILY [facility] Last Admin: 08/16/16 10:28 Dose: Not Given Non-Formulary Medication (Calcium Carbonate/Vitamin D3 [Calcium 600 + Vit D Tablet]) 1 tab PO ACBL [facility] Last Admin: 08/16/16 13:14 Dose: Not Given Oxycodone/Acetaminophen (Percocet 5/325 Mg Tab) 1 tab PO Q6H PRN PRN Reason: Pain, moderate (4-7) Stop: 08/19/16 11:43 Last Admin: 08/17/16 00:38 Dose: 1 tab Raltegravir (Isentress) 400 mg PO BID [facility] Last Admin: 08/16/16 17:51 Dose: 400 mg Spironolactone (Aldactone) 25 mg PO DAILY [facility] Last Admin: 08/16/16 10:22 Dose: 25 mg - Labs Labs: PT 10.7 Seconds (9.9-11.8) 08/16/16 01:55 INR 0.99 (0.93-1.08) 08/16/16 01:55 APTT 24.9 Seconds (23.7-30.8) 08/16/16 09:00 - Constitutional Appears: Older Than Stated Age, Agitated - Head Exam Head Exam: ATRAUMATIC, NORMOCEPHALIC - Eye Exam Eye Exam: EOMI, Normal appearance, PERRL Pupil Exam: NORMAL ACCOMODATION, PERRL - ENT Exam ENT Exam: Mucous Membranes Moist - Respiratory Exam Respiratory Exam: Wheezes, NORMAL BREATHING PATTERN. absent: Rales, Rhonchi - Cardiovascular Exam Cardiovascular Exam: REGULAR RHYTHM, +S1, +S2. absent: Gallop, Rubs, Murmur - GI/Abdominal Exam GI & Abdominal Exam: Soft, Normal Bowel Sounds. absent: Tenderness - Extremities Exam Extremities Exam: Pedal Edema, Tenderness (bilaterally). absent: Normal Inspection - Neurological Exam Neurological Exam: Alert, Awake, CN II-XII Intact - Psychiatric Exam Psychiatric exam: Agitated - Skin Skin Exam: Dry, Intact, Normal Color, Warm Assessment and Plan - Assessment and Plan (Free Text) Assessment: 61 y/o AA M with hx of HIV, HTN, DM, and COPD presents with COPD exacerbation after being discharged from [facility]. Plan: COPD Exacerbation: * Pulmonology consulted, help appreciated * EKG - NSR, tachycardic * chext x-ray showes no acute pathology * Afebrile w/o leukocytosis * Duonebs q6h deep * Duonebs q2h prn * Azithromycin 250 mg po qd * Brovana 15 mcg IH q12h * Pulmicort 0.5 mg IH q12h * Solumedrol 20 mg IV q12h * advised to stop smoking * will need outpatient sleep study and PFT's * physical therapy for weakness HIV: * Ziagen 300 mg po bid * Raltegravir 400 mg po bid * Mepron 750 mg po bid HTN: * Norvasc 5 mg po qd * Lasix 20 mg po qd * Aldactone 25 mg po qd Diabetes Mellitus: * Insulin sliding scale * Accuchecks achs Diabetic Neuropathy: * Neurontin 300 mg po tid Dehydration: * BUN/Cr - 23/1.0 * NS IVF 100 cc/hr Prophylactic Measures: * DVT: Heparin 5000 units sc q12h, SCDs * GI: Protonix 40 mg po qd Assessment and plan discussed with attending <Tamara George - Last Filed: 08/17/16 16:39> Objective - Vital Signs/Intake and Output Vital Signs (last 24 hours): Temp Pulse Resp BP Pulse Ox 98.4 F 68 18 143/87 98 08/17/16 07:27 08/17/16 10:54 08/17/16 07:27 08/17/16 10:54 08/17/16 07:27 - Medications Medications: Current Medications Abacavir Sulfate (Ziagen) 300 mg PO BID [facility] Last Admin: 08/17/16 10:54 Dose: 300 mg Albuterol/Ipratropium (Duoneb 3 Mg/0.5 Mg (3 Ml) Ud) 3 ml IH [id number] [facility] Last Admin: 08/17/16 13:32 Dose: 3 ml Albuterol/Ipratropium (Duoneb 3 Mg/0.5 Mg (3 Ml) Ud) 3 ml IH Q2H PRN PRN Reason: Shortness of Breath Amlodipine Besylate (Norvasc) 5 mg PO DAILY [facility] Last Admin: 08/17/16 10:54 Dose: 5 mg Atovaquone (Mepron) 750 mg PO BID [facility] Last Admin: 08/17/16 10:57 Dose: 750 mg Azithromycin (Zithromax) 250 mg PO DAILY [facility] PRN Reason: Protocol Last Admin: 08/17/16 10:53 Dose: 250 mg Budesonide (Pulmicort Respules) 0.5 mg IH [id number] [facility] Last Admin: 08/17/16 08:56 Dose: 0.5 mg Furosemide (Lasix) 20 mg PO DAILY [facility] Last Admin: 08/17/16 10:53 Dose: 20 mg Gabapentin (Neurontin) 300 mg PO TID [facility] PRN Reason: Protocol Last Admin: 08/17/16 15:45 Dose: 300 mg Guaifenesin (Robitussin) 200 mg PO Q4H PRN PRN Reason: Cough and congestion Last Admin: 08/16/16 12:01 Dose: 200 mg Heparin Sodium (Porcine) (Heparin) 5,000 units SC Q8 [facility] PRN Reason: Protocol Last Admin: 08/17/16 15:25 Dose: Not Given Sodium Chloride (Sodium Chloride 0.9%) 1,000 mls @ 100 mls/hr IV .Q10H [facility] Last Admin: 08/17/16 05:18 Dose: 100 mls/hr Insulin Detemir (Levemir) 10 unit SC BID [facility] Last Admin: 08/17/16 10:55 Dose: 10 unit Insulin Human Regular (Humulin R) 0 units SC ACHS [facility] PRN Reason: Protocol Last Admin: 08/17/16 12:14 Dose: 7 units Lactobacillus Acidophilus (Bacid Acidophilus) 1 cap PO BID [facility] Last Admin: 08/17/16 10:54 Dose: 1 cap Losartan Potassium (Cozaar) 25 mg PO DAILY [facility] Last Admin: 08/17/16 10:54 Dose: 25 mg Methylprednisolone (Solu-Medrol) 20 mg IV Q12 [facility] Last Admin: 08/17/16 10:55 Dose: 20 mg Multivitamins (Thera Tab) 1 tab PO DAILY [facility] Last Admin: 08/17/16 10:53 Dose: 1 tab Nicotine (Nicoderm Cq) 1 patch TD DAILY [facility] Last Admin: 08/17/16 10:55 Dose: Not Given Non-Formulary Medication (Calcium Carbonate/Vitamin D3 [Calcium 600 + Vit D Tablet]) 1 tab PO ACBL [facility] Last Admin: 08/17/16 12:14 Dose: Not Given Oxycodone/Acetaminophen (Percocet 5/325 Mg Tab) 1 tab PO Q6H PRN PRN Reason: Pain, moderate (4-7) Stop: 08/19/16 11:43 Last Admin: 08/17/16 12:15 Dose: 1 tab Raltegravir (Isentress) 400 mg PO BID [facility] Last Admin: 08/17/16 10:53 Dose: 400 mg Spironolactone (Aldactone) 25 mg PO DAILY [facility] Last Admin: 08/17/16 10:13 Dose: 25 mg - Labs Labs: PT 10.7 Seconds (9.9-11.8) 08/16/16 01:55 INR 0.99 (0.93-1.08) 08/16/16 01:55 APTT 24.9 Seconds (23.7-30.8) 08/16/16 09:00 Attending/Attestation - Attestation I have personally seen and examined this patient.: Yes I have fully participated in the care of the patient.: Yes I have reviewed all pertinent clinical information, including history, physical exam and plan: Yes Notes (Text): 08/17/16 16:36 61 year old male with past medical history of COPD, HIV, diabetes, and hypertension who presented with COPD exacerbation. He was recently discharged from [facility]. He is on iv steroids, duonebs and antibiotics. His symptoms are slowly improving. Pulmonary is following the patient. He was counselled on smoking abstinence. Continue with HAART therapy for history of HIV. Continue with home medications for hypertension. He is on insulin ss and levemir for diabetes. Tamara George MD Hospitalist.
[2016-08-17] MEDS: Multivitamin Therapeutic Tab PO SCH (10:53)
[2016-08-17] MEDS: Lactobacillus Acidophilus 500 MU Cap PO SCH ×2 (10:54→18:41)
[2016-08-17] MEDS: MethylPREDNISolone 40 mg Vial IV SCH ×2 (10:55→22:11)
[2016-08-17] MEDS: Insulin Detemir 100 units/ml Vial (Levemir) SC SCH ×2 (10:55→18:42)
[2016-08-17] MEDS: Insulin Regular 1 UNITS/0.01 ML ML SC SCH ×4 (10:56→22:10)
[2016-08-17] MEDS: Atovaquone 750 mg/5 ml Susp UD PO SCH ×2 (10:57→18:42)
--- NOTE | 2016-08-17 20:04 | PN ---
DATE: 08/17/2016 REFERRING PHYSICIAN: Dr. Sylvester Albarran. SUBJECTIVE: The patient is lying in the bed, head at 45 degrees. Feels a little better. Still has cough, shortness of breath. No nausea, no vomiting, no diarrhea. No leg pain or leg swelling. OBJECTIVE: GENERAL: No acute distress. VITAL SIGNS: Temperature is 98, heart rate is 88, respiratory rate is 18, blood pressure 105/70, pul se ox 99% on room air. HEENT: Moist mucous membranes. Small oral cavity. Crowded airway. No ulcer or oral thrush noted. NECK: Supple. No JVD. LUNGS: Have a prolonged expiratory phase with wheezing. HEART: S1 and S2. ABDOMEN: Soft, nontender. No organomegaly. EXTREMITIES: There is no edema. NEUROLOGIC: Awake, alert, follows simple command. MEDICATIONS: He is on Aldactone 25 mg daily, also on calcium plus vitamin D 1 tab ACBL, Cozaar 25 mg daily, DuoNeb q. 2 hours p.r.n., heparin 5000 units subQ q. 8 hours, insulin coverage, Isentress 400 mg twice a day, Lasix 20 mg daily, Levemir 10 units subQ twice a day, Mepron 2750 mg twice a day, ga bapentin 300 mg 3 times a day, Nicoderm patch daily, Norvasc 5 mg daily, Percocet 5/325 one tab q. 6 hours p.r.n., Pulmicort inhaled twice a day, Robitussin 200 mg q. 4 hours p.r.n., IV fluid normal anu ine 100 mL per hour, Solu-Medrol 20 mg q. 12 hours, multivitamins daily, Ziagen 300 mg twice a day, m ultivitamins daily, Zithromax 250 mg daily. LABORATORY DATA: Shows hemoglobin 10.9, hematocrit 32.7, WBC 6.7, platelet is 178. Sodium 137, pota ssium 4.1, chloride 102, bicarbonate 28, BUN 23, creatinine 1.0, glucose 280, calcium 8.8. AST 18, A LT 29, alkaline phosphatase is 59, albumin is 3.3. IMPRESSION AND PLAN: Chronic obstructive lung disease with exacerbation, history of substance abuse, human immunodeficiency virus positive, diabetes, hypertension, history of pancreatitis, degenerative joint disease, cervical spine degeneration. From pulmonary point of view, continue IV and inhaled br onchodilator, antibiotics, gastric prophylaxis, deep venous thrombosis prophylaxis, pain management, Nicoderm patch and fall precautions. Thank you, and will follow with you. Ventura Browning MD cc: [id number] TT: 08/17/2016 20:03:44 Confirmation # [id number] Dictation # [id number] mn
[2016-08-18] MEDS: Albuterol-Ipratrop 3 mg / 0.5 (3 ml) UD IH SCH ×3 (01:02→21:20)
[2016-08-18] MEDS: Sodium Chloride 0.9% 1,000 ML IV SCH (02:48)
[2016-08-18 06:46] LABS: ADD MANUAL DIFF? NO
[2016-08-18 07:08] LABS: GRAN # 6.56 (1.4-6.5); GRAN % 87.1 % (50.0-68.0); HEMATOCRIT 35.1 % (42.0-52.0); LYMPH # 0.7 (1.2-3.4); LYMPH % 9.3 % (22.0-35.0); MEAN CELL VOLUME 87.8 fL (80.0-105.0); MEAN PLATELET VOLUME 9.6 fl (7.0-11.0); MONO # 0.3 (0.1-0.6); MONO % 3.6 % (1.0-6.0); PLATELET COUNT 196 10^3/uL (120.0-450.0); RED CELL DISTRIBUTION WIDTH 16.4 % (11.5-14.5); WHITE BLOOD COUNT 7.5 10^3/ul (4.5-11.0)
[2016-08-18 07:10] LABS: ALB/GLOB RATIO 0.9 (1.1-1.8); ALKALINE PHOSPHATASE 64 U/L (38-133); ALT/SGPT 27 U/L (7-56); AST/SGOT 20 U/L (15-59); BILIRUBIN,TOTAL 0.5 mg/dL (0.2-1.3); BLOOD UREA NITROGEN 26 mg/dL (7-21); CARBON DIOXIDE 31 mmol/L (21-33); CHLORIDE 101 mmol/L (98-107); GFR AFRICAN-AMERICAN > 60; GLUCOSE,RANDOM 270 mg/dL (70-110); POTASSIUM 4.2 mmol/L (3.6-5.0); SODIUM 139 mmol/L (132-148); TOTAL PROTEIN 7.1 g/dL (5.8-8.3)
[2016-08-18] MEDS: Non Formulary Medication (Calcium Carbonate/Vitamin D3 [Calcium 600 + Vit D Tablet] 1 TAB) PO SCH ×2 (08:24→14:46)
[2016-08-18] MEDS: Insulin Regular 1 UNITS/0.01 ML ML SC SCH ×3 (08:55→19:21)
[2016-08-18] MEDS: Oxycodone/Acetaminophen 5/325 mg Tab PO PRN ×3 (09:16→22:06)
[2016-08-18] MEDS: Insulin Detemir 100 units/ml Vial (Levemir) SC SCH ×2 (09:55→19:22)
--- NOTE | 2016-08-18 11:44 | CP.PCM.PN ---
<Eddie Tuttle - Last Filed: 08/18/16 11:52> Subjective - Date & Time of Evaluation Date of Evaluation: 08/18/16 Time of Evaluation: 09:00 - Subjective Subjective: Patient seen and examined at bedside with medical attending present. Currently patient reports cough w/ white sputum. Denies chest pain. During examination patient kept having bouts of cough attack. Patient is no longer wheezing. Tolerating diet. Objective - Vital Signs/Intake and Output Vital Signs (last 24 hours): Temp Pulse Resp BP Pulse Ox 97.8 F 63 20 157/92 H 99 08/18/16 07:30 08/18/16 07:30 08/18/16 07:30 08/18/16 07:30 08/18/16 07:30 Intake and Output: 08/18/16 08/18/16 06:59 18:59 Intake Total 1060 Output Total 800 Balance 260 - Medications Medications: Current Medications Abacavir Sulfate (Ziagen) 300 mg PO BID [facility] Last Admin: 08/17/16 18:41 Dose: 300 mg Albuterol/Ipratropium (Duoneb 3 Mg/0.5 Mg (3 Ml) Ud) 3 ml IH [id number] [facility] Last Admin: 08/18/16 01:02 Dose: 3 ml Albuterol/Ipratropium (Duoneb 3 Mg/0.5 Mg (3 Ml) Ud) 3 ml IH Q2H PRN PRN Reason: Shortness of Breath Amlodipine Besylate (Norvasc) 5 mg PO DAILY [facility] Last Admin: 08/17/16 10:54 Dose: 5 mg Atovaquone (Mepron) 750 mg PO BID [facility] Last Admin: 08/17/16 18:42 Dose: 750 mg Azithromycin (Zithromax) 250 mg PO DAILY [facility] PRN Reason: Protocol Last Admin: 08/17/16 10:53 Dose: 250 mg Budesonide (Pulmicort Respules) 0.5 mg IH [id number] [facility] Last Admin: 08/17/16 19:43 Dose: 0.5 mg Furosemide (Lasix) 20 mg PO DAILY [facility] Last Admin: 08/17/16 10:53 Dose: 20 mg Gabapentin (Neurontin) 300 mg PO TID [facility] PRN Reason: Protocol Last Admin: 08/17/16 18:41 Dose: 300 mg Guaifenesin (Robitussin) 200 mg PO Q4H PRN PRN Reason: Cough and congestion Last Admin: 08/16/16 12:01 Dose: 200 mg Heparin Sodium (Porcine) (Heparin) 5,000 units SC Q8 [facility] PRN Reason: Protocol Last Admin: 08/17/16 22:20 Dose: Not Given Insulin Detemir (Levemir) 10 unit SC BID [facility] Last Admin: 08/17/16 18:42 Dose: 10 unit Insulin Human Regular (Humulin R) 0 units SC ACHS [facility] PRN Reason: Protocol Last Admin: 08/18/16 08:55 Dose: 5 units Lactobacillus Acidophilus (Bacid Acidophilus) 1 cap PO BID [facility] Last Admin: 08/17/16 18:41 Dose: 1 cap Losartan Potassium (Cozaar) 25 mg PO DAILY [facility] Last Admin: 08/17/16 10:54 Dose: 25 mg Multivitamins (Thera Tab) 1 tab PO DAILY [facility] Last Admin: 08/17/16 10:53 Dose: 1 tab Nicotine (Nicoderm Cq) 1 patch TD DAILY [facility] Last Admin: 08/17/16 10:55 Dose: Not Given Non-Formulary Medication (Calcium Carbonate/Vitamin D3 [Calcium 600 + Vit D Tablet]) 1 tab PO ACBL [facility] Last Admin: 08/18/16 08:24 Dose: Not Given Oxycodone/Acetaminophen (Percocet 5/325 Mg Tab) 1 tab PO Q6H PRN PRN Reason: Pain, moderate (4-7) Stop: 08/19/16 11:43 Last Admin: 08/18/16 09:16 Dose: 1 tab Prednisone (Prednisone Tab) 40 mg PO DAILY [facility] Raltegravir (Isentress) 400 mg PO BID [facility] Last Admin: 08/17/16 18:41 Dose: 400 mg Spironolactone (Aldactone) 25 mg PO DAILY [facility] Last Admin: 08/17/16 10:13 Dose: 25 mg - Labs Labs: 08/18/16 06:30 08/18/16 06:30 PT 10.7 Seconds (9.9-11.8) 08/16/16 01:55 INR 0.99 (0.93-1.08) 08/16/16 01:55 APTT 24.9 Seconds (23.7-30.8) 08/16/16 09:00 - Constitutional Appears: No Acute Distress - Head Exam Head Exam: NORMOCEPHALIC - ENT Exam ENT Exam: Mucous Membranes Moist - Respiratory Exam Respiratory Exam: Prolonged Expiratory Phase. absent: Chest Wall Tenderness, Wheezes - Cardiovascular Exam Cardiovascular Exam: +S1, +S2. absent: Tachycardia - GI/Abdominal Exam GI & Abdominal Exam: Soft. absent: Tenderness - Extremities Exam Extremities Exam: absent: Pedal Edema - Neurological Exam Neurological Exam: Alert, Awake, Oriented x3 - Psychiatric Exam Psychiatric exam: Normal Mood - Skin Skin Exam: Normal Color, Warm Assessment and Plan - Assessment and Plan (Free Text) Assessment: 61M with PMHx of HIV, HTN, DM, and COPD presents with COPD exacerbation after being discharged from [facility]. Plan: COPD Exacerbation: * Pulmonology consulted (Dr. Browning), recommends continuation of IV and inhaled bronchodilator, antibiotics. * CXR demonstrates no acute pathology * Afebrile w/o leukocytosis * Duonebs q6h deep * Duonebs q2h prn * Azithromycin 250 mg po qd * Brovana 15 mcg IH q12h * Pulmicort 0.5 mg IH q12h * Prednisone 40mg Daily * advised to stop smoking * will need outpatient sleep study and PFT's * D/C BiPAP * O2 nasal cannula @ 3L * physical therapy for weakness. Recommend patient be out of bed to chair. HIV: * Ziagen 300 mg po bid * Raltegravir 400 mg po bid * Mepron 750 mg po bid HTN: * Norvasc 5 mg po qd * Lasix 20 mg po qd * Aldactone 25 mg po qd Diabetes Mellitus: * Insulin sliding scale * Accuchecks achs Diabetic Neuropathy: * Neurontin 300 mg po Prophylactic Measures: * DVT: Heparin 5000 units sc q12h, SCDs * GI: Protonix 40 mg po qd Assessment and plan discussed with attending <Ventura Garrett MD - Last Filed: 08/18/16 14:39> Objective - Vital Signs/Intake and Output Vital Signs (last 24 hours): Temp Pulse Resp BP Pulse Ox 97.8 F 63 20 157/92 H 99 08/18/16 07:30 08/18/16 07:30 08/18/16 07:30 08/18/16 07:30 08/18/16 07:30 Intake and Output: 08/18/16 08/18/16 06:59 18:59 Intake Total 1060 Output Total 800 Balance 260 - Medications Medications: Current Medications Abacavir Sulfate (Ziagen) 300 mg PO BID [facility] Last Admin: 08/17/16 18:41 Dose: 300 mg Albuterol/Ipratropium (Duoneb 3 Mg/0.5 Mg (3 Ml) Ud) 3 ml IH [id number] [facility] Last Admin: 08/18/16 01:02 Dose: 3 ml Albuterol/Ipratropium (Duoneb 3 Mg/0.5 Mg (3 Ml) Ud) 3 ml IH Q2H PRN PRN Reason: Shortness of Breath Amlodipine Besylate (Norvasc) 5 mg PO DAILY [facility] Last Admin: 08/17/16 10:54 Dose: 5 mg Atovaquone (Mepron) 750 mg PO BID [facility] Last Admin: 08/17/16 18:42 Dose: 750 mg Azithromycin (Zithromax) 250 mg PO DAILY [facility] PRN Reason: Protocol Last Admin: 08/17/16 10:53 Dose: 250 mg Budesonide (Pulmicort Respules) 0.5 mg IH [id number] [facility] Last Admin: 08/17/16 19:43 Dose: 0.5 mg Furosemide (Lasix) 20 mg PO DAILY [facility] Last Admin: 08/17/16 10:53 Dose: 20 mg Gabapentin (Neurontin) 300 mg PO TID [facility] PRN Reason: Protocol Last Admin: 08/17/16 18:41 Dose: 300 mg Guaifenesin (Robitussin) 200 mg PO Q4H PRN PRN Reason: Cough and congestion Last Admin: 08/16/16 12:01 Dose: 200 mg Heparin Sodium (Porcine) (Heparin) 5,000 units SC Q8 [facility] PRN Reason: Protocol Last Admin: 08/17/16 22:20 Dose: Not Given Insulin Detemir (Levemir) 10 unit SC BID [facility] Last Admin: 08/17/16 18:42 Dose: 10 unit Insulin Human Regular (Humulin R) 0 units SC ACHS [facility] PRN Reason: Protocol Last Admin: 08/18/16 08:55 Dose: 5 units Lactobacillus Acidophilus (Bacid Acidophilus) 1 cap PO BID [facility] Last Admin: 08/17/16 18:41 Dose: 1 cap Losartan Potassium (Cozaar) 25 mg PO DAILY [facility] Last Admin: 08/17/16 10:54 Dose: 25 mg Multivitamins (Thera Tab) 1 tab PO DAILY [facility] Last Admin: 08/17/16 10:53 Dose: 1 tab Nicotine (Nicoderm Cq) 1 patch TD DAILY [facility] Last Admin: 08/17/16 10:55 Dose: Not Given Non-Formulary Medication (Calcium Carbonate/Vitamin D3 [Calcium 600 + Vit D Tablet]) 1 tab PO ACBL [facility] Last Admin: 08/18/16 08:24 Dose: Not Given Oxycodone/Acetaminophen (Percocet 5/325 Mg Tab) 1 tab PO Q6H PRN PRN Reason: Pain, moderate (4-7) Stop: 08/19/16 11:43 Last Admin: 08/18/16 09:16 Dose: 1 tab Prednisone (Prednisone Tab) 40 mg PO DAILY [facility] Raltegravir (Isentress) 400 mg PO BID [facility] Last Admin: 08/17/16 18:41 Dose: 400 mg Spironolactone (Aldactone) 25 mg PO DAILY [facility] Last Admin: 08/17/16 10:13 Dose: 25 mg - Labs Labs: 08/18/16 06:30 08/18/16 06:30 PT 10.7 Seconds (9.9-11.8) 08/16/16 01:55 INR 0.99 (0.93-1.08) 08/16/16 01:55 APTT 24.9 Seconds (23.7-30.8) 08/16/16 09:00 Attending/Attestation - Attestation I have personally seen and examined this patient.: Yes I have fully participated in the care of the patient.: Yes I have reviewed all pertinent clinical information, including history, physical exam and plan: Yes Notes (Text): Patient was seen and examined with medical records secretary .Agreed with resident assessment and plan. 61 year old male with past medical history of COPD, HIV, diabetes, and hypertension who presented with COPD exacerbation. He was recently discharged from [facility].He is not wheezing today but still having dry cough.We will stop IV methylprednisolon and will start on oral Prednisone.We will also get Physical therapy evaluation. We will continue with HAART therapy for history of HIV. Blood sugars are running high due to steroid. Management plan was discussed in detail with patient Education was provided.
[2016-08-18] MEDS: Lactobacillus Acidophilus 500 MU Cap PO SCH ×2 (14:46→19:21)
[2016-08-18] MEDS: Atovaquone 750 mg/5 ml Susp UD PO SCH ×2 (14:55→19:22)
[2016-08-18] MEDS: Multivitamin Therapeutic Tab PO SCH (14:57)
--- NOTE | 2016-08-18 21:16 | PN ---
DATE: 08/18/2016 REFERRING PHYSICIAN: Dr. Sylvester Albarran. SUBJECTIVE: He is lying in the bed, head at 45 degrees. Not very compliant with the CPAP/BiPAP. He is still complaining about cough, shortness of breath. 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 No leg pain or leg swelling. OBJECTIVE: GENERAL: No acute distress. VITAL SIGNS: Temp is 98, heart is 80, respiratory rate is 20, blood pressure 135/87, pulse ox 99% on nasal cannula. HEENT: Moist mucous membranes. Crowded airway. NECK: Supple. No JVD. LUNGS: Have bilateral expiratory wheezing and some rhonchi. HEART: S1, S2. ABDOMEN: Soft, nontender. No organomegaly. EXTREMITIES: No edema. NEUROLOGIC: Awake, alert, follows simple command. MEDICATIONS: He is on Aldactone 25 mg daily, 1 capsule twice a day, vitamin D with calcium 1 t ab daily, Cozaar 25 mg daily, DuoNeb q. 6 hours, heparin 5000 units subQ q. 8 hours, Isentress 400 mg twice a day, Lasix 20 mg daily, Levemir 10 units subQ twice a day, Mepron 750 mg twice daily, Neuron tin 300 mg 3 times a day, Nicoderm patch daily, Norvasc 5 mg daily, Percocet 5/325 one tab q. 6 hours p.r.n., prednisone 40 mg daily, Pulmicort inhaled twice a day, Robitussin 200 mg q. 4 hours, multivi tamins, Ziagen 300 mg twice a day, Zithromax 250 mg daily. LABORATORY DATA: Shows hemoglobin 11.6, hematocrit 35.1, WBC 7.5, platelet is 196. Sodium 139, pota ssium 4.2, chloride 101, bicarbonate 31, BUN 26, creatinine 0.6, glucose 270, calcium 9.9. AST 20, A LT 27, alkaline phosphatase is 64, albumin is 3.5. IMPRESSION AND PLAN: Chronic obstructive lung disease, history of substance abuse, human immunodefic iency virus positive, diabetes, hypertension, history of pancreatitis, degenerative joint disease inv olving the cervical spine. He still has some wheezing and rhonchi. Will increase prednisone to 40 m g twice a day. Continue inhaled bronchodilator. Discontinue Zithromax and add doxycycline 100 mg tw ice a day. Gastric prophylaxis, DVT prophylaxis. Thank you and will follow with you. Ventura Browning MD cc: [id number] TT: 08/18/2016 21:15:45 Confirmation # [id number] Dictation # [id number] mn
[2016-08-18] MEDS: Budesonide 0.5 mg/2 ml Inhal Susp UD IH SCH (21:20)
[2016-08-19] MEDS: Albuterol-Ipratrop 3 mg / 0.5 (3 ml) UD IH SCH ×6 (03:21→23:19)
[2016-08-19] MEDS: Insulin Regular 1 UNITS/0.01 ML ML SC SCH ×5 (04:14→22:09)
[2016-08-19 06:49] LABS: ADD MANUAL DIFF? NO
[2016-08-19 06:51] LABS: EOS # 0.1 (0.0-0.7); EOS % 1.1 % (1.5-5.0); GRAN # 4.85 (1.4-6.5); GRAN % 73.6 % (50.0-68.0); LYMPH # 1.2 (1.2-3.4); LYMPH % 18.2 % (22.0-35.0); MEAN CORPUSCULAR HEMOGLOBIN 29.6 pg (25.0-35.0); MEAN CORPUSCULAR HGB CONC 33.6 g/dl (31.0-37.0); MEAN PLATELET VOLUME 9.5 fl (7.0-11.0); MONO # 0.5 (0.1-0.6); MONO % 7.1 % (1.0-6.0); PLATELET COUNT 194 10^3/uL (120.0-450.0); WHITE BLOOD COUNT 6.6 10^3/ul (4.5-11.0)
[2016-08-19 07:06] LABS: ALB/GLOB RATIO 0.9 (1.1-1.8); ALKALINE PHOSPHATASE 61 U/L (38-133); ALT/SGPT 23 U/L (7-56); AST/SGOT 17 U/L (15-59); BILIRUBIN,TOTAL 0.6 mg/dL (0.2-1.3); BLOOD UREA NITROGEN 23 mg/dL (7-21); CALCIUM 8.9 mg/dL (8.4-10.5); CARBON DIOXIDE 31 mmol/L (21-33); CHLORIDE 101 mmol/L (98-107); GFR AFRICAN-AMERICAN > 60; GLUCOSE,RANDOM 153 mg/dL (70-110); POTASSIUM 3.3 mmol/L (3.6-5.0); SODIUM 139 mmol/L (132-148); TOTAL PROTEIN 7.1 g/dL (5.8-8.3)
[2016-08-19] MEDS: Budesonide 0.5 mg/2 ml Inhal Susp UD IH SCH ×2 (07:28→20:10)
[2016-08-19] MEDS: Non Formulary Medication (Calcium Carbonate/Vitamin D3 [Calcium 600 + Vit D Tablet] 1 TAB) PO SCH ×2 (08:00→12:00)
--- NOTE | 2016-08-19 10:45 | RAD ---
HISTORY: cough COMPARISON: 08/16/2016 FINDINGS: LUNGS: No active pulmonary disease. PLEURA: No significant pleural effusion identified, no pneumothorax apparent. CARDIOVASCULAR: Normal. OSSEOUS STRUCTURES: No significant abnormalities. VISUALIZED UPPER ABDOMEN: Normal. OTHER FINDINGS: None. IMPRESSION: No active disease.
[2016-08-19] MEDS: Atovaquone 750 mg/5 ml Susp UD PO SCH ×2 (11:55→20:44)
[2016-08-19] MEDS: Multivitamin Therapeutic Tab PO SCH (11:56)
[2016-08-19] MEDS: Lactobacillus Acidophilus 500 MU Cap PO SCH ×2 (11:57→20:35)
[2016-08-19] MEDS: Insulin Detemir 100 units/ml Vial (Levemir) SC SCH ×2 (11:58→20:43)
--- NOTE | 2016-08-19 16:15 | CP.PCM.PN ---
<Lucero Castillo - Last Filed: 08/19/16 16:21> Subjective - Date & Time of Evaluation Date of Evaluation: 08/19/16 Time of Evaluation: 07:40 - Subjective Subjective: Pt seen and evaluated at bedside. Pt is upset that "antibiotics are not working fast enough." Pt refused heparin and prednisone overnight, and nursing counseled pt on consequences of refusal. Pt reports bettering of his SOB, reports continued cough, and denies N/V and irregularities of urination. BM was normal last night. Afebrile overnight. When questioned as to why he refused PO prednisone he says, " I know it does nothing for me." Pt counseled extensively otherwise, but continues to refuse prednisone. Objective - Vital Signs/Intake and Output Vital Signs (last 24 hours): Temp Pulse Resp BP Pulse Ox 97.0 F L 73 18 110/77 95 08/19/16 07:30 08/19/16 11:55 08/19/16 07:30 08/19/16 11:57 08/19/16 07:30 Intake and Output: 08/19/16 08/19/16 06:59 18:59 Intake Total 1380 960 Output Total 6020 700 Balance -4640 260 - Medications Medications: Current Medications Abacavir Sulfate (Ziagen) 300 mg PO BID [facility] Last Admin: 08/19/16 11:55 Dose: 300 mg Albuterol/Ipratropium (Duoneb 3 Mg/0.5 Mg (3 Ml) Ud) 3 ml IH Q2H PRN PRN Reason: Shortness of Breath Last Admin: 08/19/16 13:37 Dose: 3 ml Albuterol/Ipratropium (Duoneb 3 Mg/0.5 Mg (3 Ml) Ud) 3 ml IH [id number] [facility] Last Admin: 08/19/16 16:02 Dose: 3 ml Amlodipine Besylate (Norvasc) 5 mg PO DAILY [facility] Last Admin: 08/19/16 11:55 Dose: 5 mg Atovaquone (Mepron) 750 mg PO BID [facility] Last Admin: 08/19/16 11:55 Dose: 750 mg Benzonatate (Tessalon Perles) 100 mg PO TID [facility] Budesonide (Pulmicort Respules) 0.5 mg IH [id number] [facility] Last Admin: 08/19/16 07:28 Dose: 0.5 mg Dexamethasone (Decadron) 6 mg PO BID [facility] Last Admin: 08/19/16 11:56 Dose: 6 mg Doxycycline Hyclate (Doryx) 100 mg PO Q12 DEEP PRN Reason: Protocol Last Admin: 08/19/16 11:54 Dose: 100 mg Furosemide (Lasix) 20 mg PO DAILY [facility] Last Admin: 08/19/16 11:57 Dose: 20 mg Gabapentin (Neurontin) 300 mg PO TID [facility] PRN Reason: Protocol Last Admin: 08/19/16 11:57 Dose: 300 mg Guaifenesin (Robitussin) 200 mg PO Q4H PRN PRN Reason: Cough and congestion Last Admin: 08/16/16 12:01 Dose: 200 mg Heparin Sodium (Porcine) (Heparin) 5,000 units SC Q8 DEEP PRN Reason: Protocol Last Admin: 08/19/16 05:25 Dose: Not Given Insulin Detemir (Levemir) 10 unit SC BID [facility] Last Admin: 08/19/16 11:58 Dose: 10 unit Insulin Human Regular (Humulin R) 0 units SC ACHS [facility] PRN Reason: Protocol Last Admin: 08/19/16 11:58 Dose: 7 units Lactobacillus Acidophilus (Bacid Acidophilus) 1 cap PO BID [facility] Last Admin: 08/19/16 11:57 Dose: 1 cap Losartan Potassium (Cozaar) 25 mg PO DAILY [facility] Last Admin: 08/19/16 11:55 Dose: 25 mg Multivitamins (Thera Tab) 1 tab PO DAILY [facility] Last Admin: 08/19/16 11:56 Dose: 1 tab Nicotine (Nicoderm Cq) 1 patch TD DAILY [facility] Last Admin: 08/19/16 12:00 Dose: Not Given Non-Formulary Medication (Calcium Carbonate/Vitamin D3 [Calcium 600 + Vit D Tablet]) 1 tab PO ACBL [facility] Last Admin: 08/19/16 12:00 Dose: Not Given Raltegravir (Isentress) 400 mg PO BID [facility] Last Admin: 08/19/16 11:55 Dose: 400 mg Spironolactone (Aldactone) 25 mg PO DAILY [facility] Last Admin: 08/19/16 11:54 Dose: 25 mg - Labs Labs: 08/19/16 06:15 08/19/16 06:15 PT 10.7 Seconds (9.9-11.8) 08/16/16 01:55 INR 0.99 (0.93-1.08) 08/16/16 01:55 APTT 24.9 Seconds (23.7-30.8) 08/16/16 09:00 - Constitutional Appears: Non-toxic, No Acute Distress - Head Exam Head Exam: ATRAUMATIC, NORMOCEPHALIC - Eye Exam Eye Exam: EOMI, Normal appearance - Respiratory Exam Respiratory Exam: Wheezes, NORMAL BREATHING PATTERN - Cardiovascular Exam Cardiovascular Exam: +S1, +S2. absent: Bradycardia - GI/Abdominal Exam GI & Abdominal Exam: Soft. absent: Tenderness - Exam External exam: absent: Ecchymosis, Erythema - Extremities Exam Extremities Exam: absent: Pedal Edema, Tenderness - Back Exam Back Exam: absent: CVA tenderness (L), CVA tenderness (R) - Neurological Exam Neurological Exam: Alert, Awake - Skin Skin Exam: Normal Color, Warm Assessment and Plan - Assessment and Plan (Free Text) Plan: 61M with PMHx of HIV, HTN, DM, and COPD presents with COPD exacerbation after being discharged from [facility]. COPD Exacerbation: * Pulmonology consulted (Dr. Browning), recommends continuation of IV and inhaled bronchodilator, antibiotics. * CXR demonstrates no acute pathology * Afebrile w/o leukocytosis * Duonebs q4h deep * Duonebs q2h prn * doxycycline * Brovana 15 mcg IH q12h * Pulmicort 0.5 mg IH q12h * Prednisone 40mg Daily d/c due to pt refusal. Dexamethasone 6mg PO BID started * advised to stop smoking * will need outpatient sleep study and PFT's * D/C BiPAP * O2 nasal cannula @ 3L * physical therapy for weakness. Recommend patient be out of bed to chair. * CXR today w/o active disease * nae rowland added HIV: * Ziagen 300 mg po bid * Raltegravir 400 mg po bid * Mepron 750 mg po bid HTN: * Norvasc 5 mg po qd * Lasix 20 mg po qd * Aldactone 25 mg po qd Diabetes Mellitus: * Insulin sliding scale * Accuchecks achs Diabetic Neuropathy: * Neurontin 300 mg po Prophylactic Measures: * DVT: Heparin 5000 units sc q12h, SCDs * GI: Protonix 40 mg po qd Assessment and plan discussed with attending <Ventura Garrett MD - Last Filed: 08/19/16 17:06> Objective - Vital Signs/Intake and Output Vital Signs (last 24 hours): Temp Pulse Resp BP Pulse Ox 97.0 F L 73 18 110/77 95 08/19/16 07:30 08/19/16 11:55 08/19/16 07:30 08/19/16 11:57 08/19/16 07:30 Intake and Output: 08/19/16 08/19/16 06:59 18:59 Intake Total 1380 960 Output Total 6020 700 Balance -4640 260 - Medications Medications: Current Medications Abacavir Sulfate (Ziagen) 300 mg PO BID [facility] Last Admin: 08/19/16 11:55 Dose: 300 mg Albuterol/Ipratropium (Duoneb 3 Mg/0.5 Mg (3 Ml) Ud) 3 ml IH Q2H PRN PRN Reason: Shortness of Breath Last Admin: 08/19/16 13:37 Dose: 3 ml Albuterol/Ipratropium (Duoneb 3 Mg/0.5 Mg (3 Ml) Ud) 3 ml IH [id number] [facility] Last Admin: 08/19/16 16:02 Dose: 3 ml Amlodipine Besylate (Norvasc) 5 mg PO DAILY [facility] Last Admin: 08/19/16 11:55 Dose: 5 mg Atovaquone (Mepron) 750 mg PO BID [facility] Last Admin: 08/19/16 11:55 Dose: 750 mg Benzonatate (Tessalon Perles) 100 mg PO TID [facility] Budesonide (Pulmicort Respules) 0.5 mg IH [id number] [facility] Last Admin: 08/19/16 07:28 Dose: 0.5 mg Dexamethasone (Decadron) 6 mg PO BID [facility] Last Admin: 08/19/16 11:56 Dose: 6 mg Doxycycline Hyclate (Doryx) 100 mg PO Q12 DEEP PRN Reason: Protocol Last Admin: 08/19/16 11:54 Dose: 100 mg Furosemide (Lasix) 20 mg PO DAILY [facility] Last Admin: 08/19/16 11:57 Dose: 20 mg Gabapentin (Neurontin) 300 mg PO TID [facility] PRN Reason: Protocol Last Admin: 08/19/16 11:57 Dose: 300 mg Guaifenesin (Robitussin) 200 mg PO Q4H PRN PRN Reason: Cough and congestion Last Admin: 08/16/16 12:01 Dose: 200 mg Heparin Sodium (Porcine) (Heparin) 5,000 units SC Q8 DEEP PRN Reason: Protocol Last Admin: 08/19/16 05:25 Dose: Not Given Insulin Detemir (Levemir) 10 unit SC BID [facility] Last Admin: 08/19/16 11:58 Dose: 10 unit Insulin Human Regular (Humulin R) 0 units SC ACHS [facility] PRN Reason: Protocol Last Admin: 08/19/16 11:58 Dose: 7 units Lactobacillus Acidophilus (Bacid Acidophilus) 1 cap PO BID [facility] Last Admin: 08/19/16 11:57 Dose: 1 cap Losartan Potassium (Cozaar) 25 mg PO DAILY [facility] Last Admin: 08/19/16 11:55 Dose: 25 mg Multivitamins (Thera Tab) 1 tab PO DAILY [facility] Last Admin: 08/19/16 11:56 Dose: 1 tab Nicotine (Nicoderm Cq) 1 patch TD DAILY [facility] Last Admin: 08/19/16 12:00 Dose: Not Given Non-Formulary Medication (Calcium Carbonate/Vitamin D3 [Calcium 600 + Vit D Tablet]) 1 tab PO ACBL [facility] Last Admin: 08/19/16 12:00 Dose: Not Given Raltegravir (Isentress) 400 mg PO BID [facility] Last Admin: 08/19/16 11:55 Dose: 400 mg Spironolactone (Aldactone) 25 mg PO DAILY [facility] Last Admin: 08/19/16 11:54 Dose: 25 mg - Labs Labs: 08/19/16 06:15 08/19/16 06:15 PT 10.7 Seconds (9.9-11.8) 08/16/16 01:55 INR 0.99 (0.93-1.08) 08/16/16 01:55 APTT 24.9 Seconds (23.7-30.8) 08/16/16 09:00 Attending/Attestation - Attestation I have personally seen and examined this patient.: Yes I have fully participated in the care of the patient.: Yes I have reviewed all pertinent clinical information, including history, physical exam and plan: Yes Notes (Text): 08/19/16 17:03 Patient was seen and examined with medical library assistant .Agreed with resident assessment and plan. 61 year old male with past medical history of COPD, HIV, diabetes, and hypertension who presented with COPD exacerbation. He was recently discharged from [facility].He is not wheezing today but still having dry cough.Patient is non compliance and is refusing oral Prednisone, will switch to dexamethasone as patient claim , he is not able to tolerate oral prednisone.Repeat Chest X ray today is negative for Pneumonia.Patient is at his base line hypoxia 2-3 L via nasal canula.We will ambulate patient.Patient is refusing physical therapy evaluation at this time. Management plan was discussed in detail with patient Education was provided. 08/19/16 17:06
[2016-08-19] MEDS ORDERED: Benzocaine/Menthol (Cepacol) Lozenge MT PRN (18:02)
--- NOTE | 2016-08-19 18:39 | PN ---
DATE: 08/19/2016 REFERRING PHYSICIAN: Dr. Sylvester Albarran. SUBJECTIVE: He is lying in the bed, head at 45 degrees. Feels a little better. Still having cough and pulmonary secretion. Tolerated BiPAP well. No nausea, no vomiting, no diarrhea. No leg p ain or leg swelling. OBJECTIVE: GENERAL: No acute distress. VITAL SIGNS: Temp is 98, heart rate is 105, respiratory rate is 18, blood pressure 103/72, pulse ox 95% on room air. HEENT: Moist mucous membrane. Crowded airway. NECK: Supple. No JVD. LUNGS: Has a prolonged expiratory phase with some wheezing. HEART: S1, S2. ABDOMEN: Soft, nontender. No organomegaly. EXTREMITIES: There is no edema. NEUROLOGIC: Awake, alert, follows simple commands. MEDICATIONS: He is on Aldactone 25 mg p.o. daily, lactobacillus 1 capsule twice a day, calcium plus vitamin D 1 tablet , Cozaar 20 mg daily, Decadron 6 mg twice a day, he is given doxycycline 100 mg twice a day, DuoNeb q. 2 hours, heparin 5000 units subQ q. 8 hours, insulin coverage, Isentress 40 0 mg twice a day, Lasix 20 mg daily, Levemir 10 units subQ twice a day, Mepron 750 mg twice daily, Ne urontin 300 mg 3 times a day, Nicoderm patch daily, Norvasc 5 mg daily, budesonide inhaled twice a da y, Robitussin 200 mg q. 4 hours p.r.n., Tessalon Perles 100 mg 3 times a day, multivitamins daily, Zi agen 300 mg twice a day. LABORATORY DATA: Shows hemoglobin 12.1, hematocrit 36.0, WBC 6.6, platelet count is 194. Sodium 139 , potassium 3.3, chloride 101, bicarbonate 31, BUN 23, creatinine 0.9, glucose 153, calcium 8.9, AST 17, ALT 23, alk phos is 61, albumin is 3.4. Chest x-ray done today shows no active pulmonary disease . IMPRESSION AND PLAN: Chronic obstructive lung disease, sepsis, history of substance abuse, HIV posit madhu, diabetes, hypertension, history of pancreatitis, degenerative joint disease. Still having cough and wheezing, but seems improved. Note the patient was dizzy and Decadron was added. Continue inha led bronchodilator. We will add Mucinex 600 mg twice a day. Also, add Cepacol lozenges. Gastric pr ophylaxis, DVT prophylaxis. Thank you and will follow with you. Ventura Browning MD cc: [id number] TT: 08/19/2016 18:38:37 Confirmation # [id number] Dictation # [id number] mn
[2016-08-19] MEDS: guaiFENesin-DM 600-30 mg ER Tab PO SCH (20:48)
[2016-08-20] MEDS: Albuterol-Ipratrop 3 mg / 0.5 (3 ml) UD IH SCH ×3 (03:16→11:42)
[2016-08-20] MEDS: Budesonide 0.5 mg/2 ml Inhal Susp UD IH SCH (07:25)
[2016-08-20 08:09] LABS: BLOOD UREA NITROGEN 25 mg/dL (7-21); CALCIUM 9.5 mg/dL (8.4-10.5); CARBON DIOXIDE 28 mmol/L (21-33); CHLORIDE 98 mmol/L (98-107); GFR AFRICAN-AMERICAN > 60; GLUCOSE,RANDOM 289 mg/dL (70-110); POTASSIUM 4.2 mmol/L (3.6-5.0); SODIUM 136 mmol/L (132-148)
[2016-08-20 08:54] VITALS: BP 115/80; PULSE 79; RESP 20; TEMP 98.5; O2SAT 100
[2016-08-20] MEDS: Insulin Regular 1 UNITS/0.01 ML ML SC SCH ×2 (09:14→13:09)
[2016-08-20] MEDS: Insulin Detemir 100 units/ml Vial (Levemir) SC SCH (09:15)
[2016-08-20] MEDS: Atovaquone 750 mg/5 ml Susp UD PO SCH (10:54)
[2016-08-20] MEDS: Lactobacillus Acidophilus 500 MU Cap PO SCH (10:54)
[2016-08-20] MEDS: Multivitamin Therapeutic Tab PO SCH (10:54)
[2016-08-20] MEDS: Non Formulary Medication (Calcium Carbonate/Vitamin D3 [Calcium 600 + Vit D Tablet] 1 TAB) PO SCH ×2 (10:56→12:59)
[2016-08-20] MEDS: guaiFENesin-DM 600-30 mg ER Tab PO SCH (10:59)
[2016-08-20] MEDS ORDERED: MethylPREDNISolone 40 mg Vial IVP STA (13:01)
--- NOTE | 2016-08-20 14:18 | CP.PCM.DIS ---
<Eddie Tuttle - Last Filed: 08/20/16 14:13> Provider - Provider Date of Admission: 08/17/16 09:53 Attending physician: Tamara George MD Primary care physician: Olimpia Lee MD Consults: Dr. Browning Time Spent in preparation of Discharge (in minutes): 30 Diagnosis - Discharge Diagnosis (1) COPD exacerbation Status: Chronic Hospital Course - Lab Results Lab Results: Most Recent Lab Values WBC 6.6 10^3/ul (4.5-11.0) 08/19/16 06:15 RBC 4.09 10^6/uL (3.5-6.1) 08/19/16 06:15 Hgb 12.1 gm/dL (14.0-18.0) L 08/19/16 06:15 Hct 36.0 % (42.0-52.0) L 08/19/16 06:15 MCV 88.0 fL (80.0-105.0) 08/19/16 06:15 MCH 29.6 pg (25.0-35.0) 08/19/16 06:15 MCHC 33.6 g/dl (31.0-37.0) 08/19/16 06:15 RDW 16.0 % (11.5-14.5) H 08/19/16 06:15 Plt Count 194 10^3/uL (120.0-450.0) 08/19/16 06:15 MPV 9.5 fl (7.0-11.0) 08/19/16 06:15 Gran % 73.6 % (50.0-68.0) H 08/19/16 06:15 Lymph % (Auto) 18.2 % (22.0-35.0) L 08/19/16 06:15 Sierra % (Auto) 7.1 % (1.0-6.0) H 08/19/16 06:15 Eos % (Auto) 1.1 % (1.5-5.0) L 08/19/16 06:15 Baso % (Auto) 0.0 % (0.0-3.0) 08/19/16 06:15 Gran # 4.85 (1.4-6.5) 08/19/16 06:15 Lymph # 1.2 (1.2-3.4) 08/19/16 06:15 Sierra # 0.5 (0.1-0.6) 08/19/16 06:15 Eos # 0.1 (0.0-0.7) 08/19/16 06:15 Baso # 0.00 K/mm3 (0.0-2.0) 08/19/16 06:15 PT 10.7 Seconds (9.9-11.8) 08/16/16 01:55 INR 0.99 (0.93-1.08) 08/16/16 01:55 APTT 24.9 Seconds (23.7-30.8) 08/16/16 09:00 Sodium 136 mmol/L (132-148) 08/20/16 05:30 Potassium 4.2 mmol/L (3.6-5.0) 08/20/16 05:30 Chloride 98 mmol/L (98-107) 08/20/16 05:30 Carbon Dioxide 28 mmol/L (21-33) 08/20/16 05:30 Anion Gap 14 (10-20) 08/20/16 05:30 BUN 25 mg/dL (7-21) H 08/20/16 05:30 Creatinine 0.9 mg/dL (0.5-1.4) 08/20/16 05:30 Est GFR ( Amer) > 60 08/20/16 05:30 Est GFR (Non-Af Amer) > 60 08/20/16 05:30 POC Glucose (mg/dL) 297 mg/dL (65-110) H 08/18/16 21:30 Random Glucose 289 mg/dL (70-110) H 08/20/16 05:30 Calcium 9.5 mg/dL (8.4-10.5) 08/20/16 05:30 Total Bilirubin 0.6 mg/dL (0.2-1.3) 08/19/16 06:15 AST 17 U/L (15-59) 08/19/16 06:15 ALT 23 U/L (7-56) 08/19/16 06:15 Alkaline Phosphatase 61 U/L (38-133) 08/19/16 06:15 Lactate Dehydrogenase 638 U/L (333-699) 08/16/16 01:55 Total Creatine Kinase 65 U/L (35-230) 08/16/16 01:55 Troponin I < 0.01 ng/mL 08/16/16 01:55 NT-Pro-B Natriuret Pep 205 pg/mL (0-450) 08/16/16 01:55 Total Protein 7.1 g/dL (5.8-8.3) 08/19/16 06:15 Albumin 3.4 g/dL (3.0-4.8) 08/19/16 06:15 Globulin 3.7 gm/dL 08/19/16 06:15 Albumin/Globulin Ratio 0.9 (1.1-1.8) L 08/19/16 06:15 Urine Opiates Screen Positive (NEGATIVE) H 08/16/16 14:41 Urine Methadone Screen Negative (NEGATIVE) 08/16/16 14:41 Ur Barbiturates Screen Negative (NEGATIVE) 08/16/16 14:41 Ur Phencyclidine Scrn Negative (NEGATIVE) 08/16/16 14:41 Ur Amphetamines Screen Negative (NEGATIVE) 08/16/16 14:41 U Benzodiazepines Scrn Negative (NEGATIVE) 08/16/16 14:41 U Oth Cocaine Metabols Negative (NEGATIVE) 08/16/16 14:41 U Cannabinoids Screen Negative (NEGATIVE) 08/16/16 14:41 - Hospital Course Hospital Course: Pt is a 61 year old -[place] male with a PMHx of HIV on HAART therapy, IV heroin abuse, Diabetes Mellitus, Hepatitis C, COPD, HTN, and chronic osteomyelitis who presented to the ED with complaints of shortness of breath and coughing. Pt is a frequent visitor to [facility]. Pt states that he was recently discharged earlier today from [facility] where he was hospitalized for similar symptoms. He reports that he does not feel that he has improved, and he is still short of breath and coughing. Pt also reports that he has a headache. Pt reports that he has not used heroin recently. He denies fever , chills, chest pain, nausea, vomiting. 08/16: on bipap. no wheezing 08/17: will need PT and decreased steroids 08/18: D/c'ed IVF, d/c'ed BiPAP. Started on oral prednisone 40mg PO daily. 08/20: Patient agitated, non-compliant. Refusing meds, giving nursing staff a difficult time. Patient yelling he wants to leave AMA. Patient signed AMA form. Patient given scripts of his COPD. Above is a brief explanation of this patient's hospital course, for further details please refer to medical record. Discharge Exam - Head Exam Head Exam: ATRAUMATIC, NORMOCEPHALIC - Eye Exam Eye Exam: Normal appearance - ENT Exam ENT Exam: Mucous Membranes Moist - Respiratory Exam Respiratory Exam: absent: Accessory Muscle Use, Wheezes - Cardiovascular Exam Cardiovascular Exam: +S1, +S2 - GI/Abdominal Exam GI & Abdominal Exam: Soft - Neurological Exam Neurological exam: Alert, Oriented x3 - Skin Skin Exam: Normal Color, Warm Discharge Plan - Follow Up Plan Condition: STABLE Disposition: HOME/ ROUTINE Referrals: Olimpia Lee MD [Primary Care Provider] - <Tami MONTALVO,[facility] - Last Filed: 08/20/16 15:24> Provider - Provider Date of Admission: 08/17/16 09:53 Attending physician: Tamara George MD Primary care physician: Olimpia Lee MD Hospital Course - Lab Results Lab Results: Most Recent Lab Values WBC 6.6 10^3/ul (4.5-11.0) 08/19/16 06:15 RBC 4.09 10^6/uL (3.5-6.1) 08/19/16 06:15 Hgb 12.1 gm/dL (14.0-18.0) L 08/19/16 06:15 Hct 36.0 % (42.0-52.0) L 08/19/16 06:15 MCV 88.0 fL (80.0-105.0) 08/19/16 06:15 MCH 29.6 pg (25.0-35.0) 08/19/16 06:15 MCHC 33.6 g/dl (31.0-37.0) 08/19/16 06:15 RDW 16.0 % (11.5-14.5) H 08/19/16 06:15 Plt Count 194 10^3/uL (120.0-450.0) 08/19/16 06:15 MPV 9.5 fl (7.0-11.0) 08/19/16 06:15 Gran % 73.6 % (50.0-68.0) H 08/19/16 06:15 Lymph % (Auto) 18.2 % (22.0-35.0) L 08/19/16 06:15 Sierra % (Auto) 7.1 % (1.0-6.0) H 08/19/16 06:15 Eos % (Auto) 1.1 % (1.5-5.0) L 08/19/16 06:15 Baso % (Auto) 0.0 % (0.0-3.0) 08/19/16 06:15 Gran # 4.85 (1.4-6.5) 08/19/16 06:15 Lymph # 1.2 (1.2-3.4) 08/19/16 06:15 Sierra # 0.5 (0.1-0.6) 08/19/16 06:15 Eos # 0.1 (0.0-0.7) 08/19/16 06:15 Baso # 0.00 K/mm3 (0.0-2.0) 08/19/16 06:15 PT 10.7 Seconds (9.9-11.8) 08/16/16 01:55 INR 0.99 (0.93-1.08) 08/16/16 01:55 APTT 24.9 Seconds (23.7-30.8) 08/16/16 09:00 Sodium 136 mmol/L (132-148) 08/20/16 05:30 Potassium 4.2 mmol/L (3.6-5.0) 08/20/16 05:30 Chloride 98 mmol/L (98-107) 08/20/16 05:30 Carbon Dioxide 28 mmol/L (21-33) 08/20/16 05:30 Anion Gap 14 (10-20) 08/20/16 05:30 BUN 25 mg/dL (7-21) H 08/20/16 05:30 Creatinine 0.9 mg/dL (0.5-1.4) 08/20/16 05:30 Est GFR ( Amer) > 60 08/20/16 05:30 Est GFR (Non-Af Amer) > 60 08/20/16 05:30 POC Glucose (mg/dL) 297 mg/dL (65-110) H 08/18/16 21:30 Random Glucose 289 mg/dL (70-110) H 08/20/16 05:30 Calcium 9.5 mg/dL (8.4-10.5) 08/20/16 05:30 Total Bilirubin 0.6 mg/dL (0.2-1.3) 08/19/16 06:15 AST 17 U/L (15-59) 08/19/16 06:15 ALT 23 U/L (7-56) 08/19/16 06:15 Alkaline Phosphatase 61 U/L (38-133) 08/19/16 06:15 Lactate Dehydrogenase 638 U/L (333-699) 08/16/16 01:55 Total Creatine Kinase 65 U/L (35-230) 08/16/16 01:55 Troponin I < 0.01 ng/mL 08/16/16 01:55 NT-Pro-B Natriuret Pep 205 pg/mL (0-450) 08/16/16 01:55 Total Protein 7.1 g/dL (5.8-8.3) 08/19/16 06:15 Albumin 3.4 g/dL (3.0-4.8) 08/19/16 06:15 Globulin 3.7 gm/dL 08/19/16 06:15 Albumin/Globulin Ratio 0.9 (1.1-1.8) L 08/19/16 06:15 Urine Opiates Screen Positive (NEGATIVE) H 08/16/16 14:41 Urine Methadone Screen Negative (NEGATIVE) 08/16/16 14:41 Ur Barbiturates Screen Negative (NEGATIVE) 08/16/16 14:41 Ur Phencyclidine Scrn Negative (NEGATIVE) 08/16/16 14:41 Ur Amphetamines Screen Negative (NEGATIVE) 08/16/16 14:41 U Benzodiazepines Scrn Negative (NEGATIVE) 08/16/16 14:41 U Oth Cocaine Metabols Negative (NEGATIVE) 08/16/16 14:41 U Cannabinoids Screen Negative (NEGATIVE) 08/16/16 14:41 Attending/Attestation - Attestation I have personally seen and examined this patient.: Yes I have fully participated in the care of the patient.: Yes I have reviewed all pertinent clinical information, including history, physical exam and plan: Yes Notes (Text): Patient was seen and examined with medical device sales .Agreed with resident assessment and plan. 61 year old male with past medical history of COPD, HIV, diabetes, and hypertension who presented with COPD exacerbation. He was recently discharged from [facility] [place]He was treated with Neb/IV methylprednisolon and antibiotics.He has responded well.His IV methylprednsione was discontinued 2 days back and he was started on oral Prednisone.Patient refused Prednisone, was switched to oral Dexamethasone, patient refused dexamethasone also, he also refused physical therapy.He is not wheezing today.He is at base line hypoxia.He is very non compliance ,He signed against medical advice, was given prescription for medication at the time of discharge.His risk of readmission to the hospital is very high due to non compliance. Prognosis is guarded. Management plan was discussed in detail with patient Education was provided.
--- NOTE | 2016-08-20 15:56 | PN ---
DATE: 08/20/2016 REFERRING PHYSICIAN: Dr. Yamile Alabrran. SUBJECTIVE: The patient is sitting side of the bed. Wants to go home. Feels like not getting enoug h help. Threatening to sign against medical advice. Still has a cough and shortness of breath. Ref used prednisone and even Decadron. Wishing to get IV Solu-Medrol. No nausea, no vomiting, no diarrh ea. No leg pain or leg swelling. OBJECTIVE: GENERAL: No acute distress. VITAL SIGNS: Temperature is 98, heart rate is 79, respiratory rate is 20, blood pressure 115/80, pul se ox 100% on nasal cannula. HEENT: Moist mucous membrane. No ulcer or oral thrush noted. NECK: Supple. No JVD. LUNGS: Have a few scattered wheezing. HEART: S1, S2. ABDOMEN: Soft, nontender. No organomegaly. EXTREMITIES: There is no edema. NEUROLOGIC: Awake, alert, follows simple command. MEDICATIONS: He is on Aldactone 25 mg daily, lactobacillus 1 capsule twice a day, getting calcium an d vitamin D, benzocaine to mouth q. 2 hours p.r.n., Cozaar 25 mg daily, Decadron 6 mg daily, doxycycl ine 100 mg twice a day, DuoNeb q. 6 hours, heparin 5000 units subQ q. 8 hours, insulin coverage, Isen tress 4 mg twice a day, Lasix 20 mg daily, Levemir 10 units subQ twice a day, Mepron 750 mg twice a d ay, Mucinex DM 600 mg/30 one tab twice a day, Neurontin 300 mg 3 times a day, Nicoderm patches daily, Norvasc 5 mg daily, budesonide 0.5 mg twice a day, Robitussin on a p.r.n. basis, Tessalon Perles 100 mg 3 times a day, multivitamins daily, Ziagen 300 mg twice a day. LABORATORY DATA: Reviewed and shows sodium 136, potassium 4.2, chloride 98, bicarbonate 28, BUN ____ , creatinine 0.9, glucose 289, calcium is 9.5. Chest x-ray done yesterday shows no active infiltrate. IMPRESSION AND PLAN: Chronic obstructive lung disease, sepsis, history of substance abuse, human imm unodeficiency virus positive, diabetes, hypertension, history of pancreatitis, degenerative joint dis ease, ____ compliant with instructions and medication, mostly dictates his care in the hospital. Has been refusing steroids and even Decadron. Wants to get Solu-Medrol. Spoke to nursing staff. Will give Solu-Medrol 40 mg 1 dose. Continue p.o. and inhaled bronchodilator. Gastric prophylaxis. DVT prophylaxis. Thank you, and will follow with you. Ventura Browning MD cc: [id number] TT: 08/20/2016 14:42:00 Confirmation # [id number] Dictation # [id number] mn
== END 2016-08-20 14:05 | disposition left against medical advice (07) ==
LOC: ED 00:31 → ERH 02:37 → 5RNO 04:14 → INTOOBSV 08-17 09:53 → OBSVTOIN 08-17 09:53 → 5RNO 08-18 12:49
PROVIDERS: ADMIT Hospitalist; ATTEND Internal Medicine
PROC: 5A09457 Assistance with Respiratory Ventilation, 24-96 Consecutive Hours, Continuous Positive Airway Pressure (ICD-10-PCS; principal; 2016-08-16)
PROC: 3E0F7GC Introduction of Other Therapeutic Substance into Respiratory Tract, Via Natural or Artificial Opening (ICD-10-PCS; 2016-08-16)
DX: J44.1 Chronic obstructive pulmonary disease with (acute) exacerbation (principal); M86.60 Other chronic osteomyelitis, unspecified site; E11.40 Type 2 diabetes mellitus with diabetic neuropathy, unspecified; E11.69 Type 2 diabetes mellitus with other specified complication; K86.1 Other chronic pancreatitis; Z21 Asymptomatic human immunodeficiency virus [HIV] infection status; R09.02 Hypoxemia; I10 Essential (primary) hypertension; G89.29 Other chronic pain; F11.10 Opioid abuse, uncomplicated; E86.0 Dehydration; M47.812 Spondylosis without myelopathy or radiculopathy, cervical region; B19.20 Unspecified viral hepatitis C without hepatic coma; F17.210 Nicotine dependence, cigarettes, uncomplicated; Z91.19 Patient's noncompliance with other medical treatment and regimen; Z79.4 Long term (current) use of insulin; Z79.899 Other long term (current) drug therapy; Z83.3 Family history of diabetes mellitus
CPT/HCPCS: 36415; 71010; 80048; 80053; 82550; 82948; 83615; 83880; 84484; 85025; 85027; 85610; 85730; 93005; 94640; 94660; 96374; 99285; G0378; G0480; J1644; J2920; J2930; J7040; J8540

== ENCOUNTER 2016-10-05 16:05 | Observation (INO) | payer MEDICARE, MEDICAID ==
--- NOTE | 2016-10-05 16:14 | ED PDOC ---
Arrival/HPI - General Time Seen by Provider: 10/05/16 16:11 - History of Present Illness Narrative History of Present Illness (Text): 10/05/16 16:13 61yo male with a history of HIV on HAART therapy, IV heroin abuse, diabetes, hepatitis C, COPD, hypertension presents with 1 week duration of chest pain. States pain comes and goes, with no relieving or exacerbating factors, states it is non-exertional. No ripping or tearing sensation or radiation to the back. Pt denies SOB or ESCOBEDO, states he does not feel like this is his COPD exacerbation. Pt also mentions that he is having neck pain, states it has been happening for the last 2 months. States this is from carrying his oxygen tank around his neck. Denies any trauma or injury. No other complaints. Past Medical History - Provider Review Nursing Documentation Reviewed: Yes - Infectious Disease Hx of Infectious Diseases: None - Tetanus Immunization Tetanus Immunization: Unknown - Cardiac Hx Hypertension: Yes - Pulmonary Hx Chronic Obstructive Pulmonary Disease (COPD): Yes (on O2 via NC @ 2lpm) Hx Emphysema: Yes - Neurological Hx Neurological Disorder: No - HEENT Hx HEENT Disorder: No - Renal Hx Renal Disorder: No - Endocrine/Metabolic Hx Diabetes Mellitus Type 1: Yes Hx Diabetes Mellitus Type 2: Yes - Hematological/Oncological Hx Hepatitis C: Yes - Integumentary Hx Dermatological Disorder: No - Musculoskeletal/Rheumatological Hx Falls: No - Gastrointestinal Hx Pancreatitis: Yes - Genitourinary/Gynecological Hx Genitourinary Disorders: No - Psychiatric Hx Psychophysiologic Disorder: No Hx Substance Use: No (denies) - Surgical History Hx Orthopedic Surgery: Yes (RT KNEE) - Anesthesia Hx Anesthesia: Yes Hx Anesthesia Reactions: No Hx Malignant Hyperthermia: No - Suicidal Assessment Feels Threatened In Home Enviroment: No Family/Social History Family/Social History: Unknown Family HX Smoking Status: Former Smoker Hx Alcohol Use: No Hx Substance Use: No (denies) Substance used: heroine Allergies/Home Meds Allergies/Adverse Reactions: Allergies No Known Allergies Allergy (Verified 10/05/16 16:23) Home Medications: Home Meds Medication Instructions Recorded Confirmed Insulin Aspart, Recombinant 30 unit SQ BID 08/16/16 08/16/16 [Novolog] Valsartan [Diovan] 1 tab PO DAILY 08/16/16 08/16/16 Physical Exam - Physical Exam Narrative Physical Exam (Text): 10/05/16 16:49 - Review of Systems Constitutional: Normal. absent: Fatigue, Weight Change, Fevers Eyes: Normal ENT: denies sore throat, denies tristhmus Respiratory: Normal. absent: SOB, Cough, Sputum Cardiovascular: Chest pain absent: Palpitations, Syncope Gastrointestinal: Normal. absent: Abdominal Pain, Diarrhea, Nausea, Vomiting Genitourinary: Normal. absent: Dysuria, Frequency, Hematuria Musculoskeletal: Neck pain. absent: Arthralgias, Back Pain Skin: no rashes, no erythema Neurological: absent: Focal Weakness Endocrine: Normal Hemo/Lymphatic: Normal Psychiatric: No suicidal or homicidal ideations Physical exam Patient appears age appropriate in no distress, speaking full sentences without difficulty - Systems Exam Head: Present: Atraumatic, Normocephalic Pupils: Present: PERRL Extroacular Muscles: Present: EOMI Conjunctiva: Present: Normal Mouth: Present: Moist Mucous Membranes Neck: Present: Full active and passive Normal Range of Motion. No: MIDLINE TENDERNESS Respiratory/Chest: Present: Clear to Auscultation, Good Air Exchange. No: Respiratory Distress, Accessory Muscle Use, Tachypneic Cardiovascular: Present: Regular Rate and Rhythm, Normal S1, S2, Peripheal Pulses Present. No: Murmurs Abdomen: Present: Normal Bowel Sounds. No: Tenderness, Distention, Peritoneal Signs, Rebound, Guarding Back: Present: Normal Inspection. No: Midline Tenderness, Paraspinal Tenderness Upper Extremity: Present: Normal Inspection. No: Cyanosis, Edema Lower Extremity: Present: Normal Inspection. No: Edema Neurological: Present: GCS=15, Speech Normal, cranial nerves II through XII fully intact with no cerebellar abnormality, neurosensory fully intact. No focal neurological deficits. Skin: Present: Warm, Dry, Normal Color. No: Rashes Lymphatic: Present: OX3, NI, NC Psychiatric: Present: Alert, Oriented x 3, Normal Insight, Normal Concentration Vital Signs Reviewed: Yes Vital Signs Temp Pulse Pulse Resp BP Pulse Ox 10/05/16 16:51 99.1 F 10/05/16 16:40 101 H 10/05/16 16:39 98.7 F 10/05/16 16:37 105 H 17 92/55 L 99 Temperature: Afebrile Blood Pressure: Hypotensive Pulse: Tachycardic Respiratory Rate: Normal Appearance: Positive for: Well-Appearing Pain Distress: None Mental Status: Positive for: Alert and Oriented X 3. No: Agitated, Lethargic Medical Decision Making ED Course and Treatment: 61yo male with non-reproducible chest pain. No acute findings on PE. EKG shows sinus tach, 104bpm, no ST-segment elevations. interpreted by me. Patient's previous records reviewed, patient was last discharged in the beginning of August, after being treated for COPD exacerbation. ASA, ntg, labs, cxr, c-spine xray ordered pt has a hx of COPD, but lungs are clear to ausc. b/l and he is speaking full sentences without difficulty 10/05/16 18:[address] George, asked to call Dr. Patel first 10/05/16 18:13 sandrine Rivera, covering Dr. Patel, asked to admit to hospitalist service Dr. George paged again 10/05/16 18:[address] George, accepted tele/obs to his service pt in no distress, denies cp/sob/escobedo at this time, aware of and agrees with plan - Lab Interpretations Lab Results: 10/05/16 17:00 10/05/16 17:00 Lab Results 10/05/16 17:00: Sodium 135, Potassium 4.6, Chloride 99, Carbon Dioxide 25, Anion Gap 16, BUN 36 H, Creatinine 1.7 H, Est GFR ( Amer) 50, Est GFR ( Non-Af Amer) 41, Random Glucose 145 H, Calcium 9.8, Total Bilirubin 0.5, AST 51 , ALT 26, Alkaline Phosphatase 90, Lactate Dehydrogenase 617, Total Creatine Kinase 379 H, CK-MB (CK-2) Pending, CK-MB (CK-2) % Pending, Troponin I < 0.01, Total Protein 9.3 H, Albumin 4.8, Globulin 4.5, Albumin/Globulin Ratio 1.1 10/05/16 17:00: PT 10.6, INR 0.98, APTT 28.2 10/05/16 17:00: WBC 5.4, RBC 4.20, Hgb 13.1 L, Hct 38.1 L, MCV 90.7, MCH 31.2, MCHC 34.4, RDW 14.4, Plt Count 236, MPV 10.2, Gran % 78.1 H, Lymph % (Auto) 15.1 L, Mccracken % (Auto) 5.5, Eos % (Auto) 1.1 L, Baso % (Auto) 0.2, Gran # 4.25, Lymph # 0.8 L, M[place]racken # 0.3, Eos # 0.1, Baso # 0.01 - RAD Interpretation Radiology Orders: 10/05/16 16:43 CHEST ONE VIEW [RAD] Stat CERVICAL SPINE AP & LATERAL [RAD] Stat - Medication Orders Current Medication Orders: Discontinued Medications Aspirin (Aspirin Chewable) 324 mg PO STAT STA Stop: 10/05/16 16:22 Last Admin: 10/05/16 16:39 Dose: 324 mg Nitroglycerin (Nitrostat Sl Tab) 0.3 mg SL STAT STA Stop: 10/05/16 16:22 Last Admin: 10/05/16 16:39 Dose: 0.3 mg Disposition/Present on Arrival - Present on Arrival Any Indicators Present on Arrival: No History of DVT/PE: No History of Uncontrolled Diabetes: Yes Urinary Catheter: No History Surgical Site Infection Following: None - Disposition Have Diagnosis and Disposition been Completed?: Yes Diagnosis: Chest pain Disposition: HOSPITALIZED Disposition Time: 18:18 Patient Plan: Observation Condition: STABLE Discharge Instructions (ExitCare): Chest Pain (ED) Referrals: Pankaj Cooper, [Primary Care Provider] - Follow up with primary
[2016-10-05 17:21] LABS: ADD MANUAL DIFF? NO
[2016-10-05 17:30] LABS: BASO # 0.01 K/mm3 (0.0-2.0); BASO % 0.2 % (0.0-3.0); EOS # 0.1 (0.0-0.7); EOS % 1.1 % (1.5-5.0); GRAN # 4.25 (1.4-6.5); GRAN % 78.1 % (50.0-68.0); HEMATOCRIT 38.1 % (42.0-52.0); LYMPH # 0.8 (1.2-3.4); LYMPH % 15.1 % (22.0-35.0); MEAN CELL VOLUME 90.7 fL (80.0-105.0); MEAN CORPUSCULAR HEMOGLOBIN 31.2 pg (25.0-35.0); MEAN CORPUSCULAR HGB CONC 34.4 g/dl (31.0-37.0); MEAN PLATELET VOLUME 10.2 fl (7.0-11.0); MONO # 0.3 (0.1-0.6); MONO % 5.5 % (1.0-6.0); PLATELET COUNT 236 10^3/uL (120.0-450.0); RED CELL DISTRIBUTION WIDTH 14.4 % (11.5-14.5); WHITE BLOOD COUNT 5.4 10^3/ul (4.5-11.0)
[2016-10-05 17:41] LABS: INR 0.98 (0.93-1.08); PARTIAL THROMBOPLASTIN TIME 28.2 Seconds (23.7-30.8)
[2016-10-05 17:47] LABS: ALB/GLOB RATIO 1.1 (1.1-1.8); ALKALINE PHOSPHATASE 90 U/L (38-133); ALT/SGPT 26 U/L (7-56); AST/SGOT 51 U/L (15-59); BILIRUBIN,TOTAL 0.5 mg/dL (0.2-1.3); BLOOD UREA NITROGEN 36 mg/dL (7-21); CALCIUM 9.8 mg/dL (8.4-10.5); CARBON DIOXIDE 25 mmol/L (21-33); CHLORIDE 99 mmol/L (98-107); GFR AFRICAN-AMERICAN 50; GLUCOSE,RANDOM 145 mg/dL (70-110); POTASSIUM 4.6 mmol/L (3.6-5.0); SODIUM 135 mmol/L (132-148); TOTAL PROTEIN 9.3 g/dL (5.8-8.3)
--- NOTE | 2016-10-05 17:58 | RAD ---
HISTORY: cough COMPARISON: Chest x-ray performed 08/19/16 TECHNIQUE: Chest, one view. FINDINGS: LUNGS: No focal consolidation. Tiny probable right upper lobe calcified granulomas. Please note that chest x-ray has limited sensitivity for the detection of pulmonary masses. PLEURA: No significant pleural effusion identified. No definite pneumothorax . CARDIOVASCULAR: Heart size appears within normal limits. Atherosclerotic calcifications of the aorta. OSSEOUS STRUCTURES: No acute osseous abnormality identified. VISUALIZED UPPER ABDOMEN: Unremarkable. OTHER FINDINGS: None. IMPRESSION: No focal consolidation, significant pleural effusion, or definite pneumothorax identified.
--- NOTE | 2016-10-05 18:01 | RAD ---
PROCEDURE: Cervical Spine Radiographs. HISTORY: Pain. COMPARISON: Soft tissue neck radiographs performed 04/26/16 FINDINGS: BONES: Straightening of the normal cervical lordosis may be related to muscle spasm or positioning. No acute displaced fracture identified. Multilevel degenerative changes. Endplate sclerosis at C3-C4. DISC SPACES: Intervertebral disc space narrowing prominent at C3-C4. SOFT TISSUES: No prevertebral soft tissue swelling. OTHER FINDINGS: None. IMPRESSION: Straightening of the normal cervical lordosis may be related to muscle spasm or positioning. Multilevel degenerative changes as above. Recommend further evaluation with cross-sectional imaging if indicated.
[2016-10-05 18:03] LABS: TROPONIN I < 0.01 ng/mL
[2016-10-05] MEDS ORDERED: Albuterol 0.083% Inhal Sol (2.5 mg/3 mL) UD IH PRN (18:35)
[2016-10-05] MEDS ORDERED: Sodium Chloride 0.9% 1,000 ML IV STA (18:44)
[2016-10-05 19:17] LABS: URINE BILIRUBIN NEGATIVE (NEGATIVE); URINE BLOOD TRACE-INTACT (NEGATIVE); URINE GLUCOSE (UA) NEGATIVE (NEGATIVE); URINE KETONE NEGATIVE (NEGATIVE); URINE LEUKOCYTE ESTERASE SMALL Leu/uL (NEGATIVE); URINE PROTEIN TRACE mg/dL (<30 mg/dL); URINE UROBILINOGEN 0.2 E.U./dL (<1 E.U./dL)
[2016-10-05 19:22] LABS: URINE APPEARANCE CLEAR (CLEAR)
[2016-10-05 19:23] LABS: URINE COLOR YELLOW (YELLOW)
--- NOTE | 2016-10-05 19:23 | CP.PCM.HP ---
Addendum entered and electronically signed by Elvis Teresa, DO 10/05/16 22:43: The patient was explained that his D-Dimer was very elevated and it was extremely concerned for either a blood clot in his legs or in his lungs which are both emergency conditions that could kill the patient within minutes. The patient did not seem to care about either of this conditions and only was concerned about his neck pain and was requesting an emergent MRI. I explained to the patient in detail, that absolutely no physician at any hospital would order him a STAT MRI for his neck pain as he has no warning signs indicating that he needs a STAT MRI. I explained that an MRI could be ordered as a routine test without problem at some point in the future but the patient stated that "I was pissing him off and I only came here for my neck pain THATS IT". The patient was educated in depth about the risks of blood clots and the patient was seen packing up his bags to leave the hospital and was taking out his IV. Original Note: <Elvis Teresa - Last Filed: 10/05/16 19:41> History of Present Illness - History of Present Illness History of Present Illness: CC: Neck pain and SOB HPI: Pt is a 61 year old -[place] male with a PMHx of HIV on HAART therapy who states he is undetectable, nasal heroin abuse, Diabetes Mellitus, Hepatitis C, COPD, HTN, who presents to the ED with complaints of shortness of breath which is at his baseline and neck pain. [place] [facility] [place] He reports that he does not feel that he has improved, and he is still short of breath, with clear sputum, and with neck pain that does not radiate anywhere down hands no numbess no tingling no loss of muscle strength or sensation. Pt also reports that he has a headache. Pt reports snorting 1 bag of heroin per day for pain. He denies fever, chills, chest pain, nausea, vomiting, dysuria/ freq/urg. Admits to lower extremity swelling and pain. Patient states his legs have been swelling more than normal with pain. On 2L NC at all times, never been intubated. PMHx: on HAART therapy, nasal heroin abuse, Hepatitis C, COPD, HTN, and chronic osteomyelitis Home medications: as per MAR Past Surgical Hx: denies Allergies: NKDA Social Hx: reports that he smokes 1 pack of cigarettes/day for 51 years stopped a few years ago, denies alcohol use, reports past history of IV/nasal heroin abuse, currently uses 1bag of heroin per day because he cannot get a pain management doctor Family Hx: Diabetes Mellitus Meds: Please refer to MAR Present on Admission - Present on Admission Any Indicators Present on Admission: No History of DVT/PE: Yes History of Uncontrolled Diabetes: Yes Decubitus Ulcer Present: No Past Patient History - Infectious Disease Hx of Infectious Diseases: None - Tetanus Immunizations Tetanus Immunization: Unknown - Past Medical History & Family History Past Medical History?: Yes - Past Social History Smoking Status: Former Smoker - CARDIAC Hx Hypertension: Yes - PULMONARY Hx Chronic Obstructive Pulmonary Disease (COPD): Yes (on O2 via NC @ 2lpm) Hx Emphysema: Yes - NEUROLOGICAL Hx Neurological Disorder: No - HEENT Hx HEENT Problems: No - RENAL Hx Chronic Kidney Disease: No - ENDOCRINE/METABOLIC Hx Diabetes Mellitus Type 1: Yes Hx Diabetes Mellitus Type 2: Yes - HEMATOLOGICAL/ONCOLOGICAL Hx Hepatitis C: Yes - INTEGUMENTARY Hx Dermatological Problems: No - MUSCULOSKELETAL/RHEUMATOLOGICAL Hx Falls: No - GASTROINTESTINAL Hx Pancreatitis: Yes - GENITOURINARY/GYNECOLOGICAL Hx Genitourinary Disorders: No - PSYCHIATRIC Hx Psychophysiologic Disorder: No Hx Substance Use: No (denies) - SURGICAL HISTORY Hx Orthopedic Surgery: Yes (RT KNEE) - ANESTHESIA Hx Anesthesia: Yes Hx Anesthesia Reactions: No Hx Malignant Hyperthermia: No Meds Allergies/Adverse Reactions: Allergies Allergy/AdvReac Type Severity Reaction Status Date / Time No Known Allergies Allergy Verified 10/05/16 16:23 Physical Exam - Constitutional Appears: Non-toxic - Head Exam Head Exam: ATRAUMATIC - Eye Exam Eye Exam: EOMI - ENT Exam ENT Exam: Mucous Membranes Moist - Neck Exam Neck exam: Positive for: Full Rom - Respiratory Exam Respiratory Exam: Wheezes Results - Vital Signs Recent Vital Signs: Last Vital Signs Temp 99.1 F 10/05/16 16:51 Pulse 84 10/05/16 18:21 Resp 18 10/05/16 18:21 BP 98/54 L 10/05/16 18:21 Pulse Ox 100 10/05/16 18:21 - Labs Result Diagrams: 10/05/16 17:00 10/05/16 17:00 Labs: Laboratory Results - last 24 hr 0610/05/16 10/05/16 17:00 17:00 17:00 WBC 5.4 RBC 4.20 Hgb 13.1 L Hct 38.1 L MCV 90.7 MCH 31.2 MCHC 34.4 RDW 14.4 Plt Count 236 MPV 10.2 Gran % 78.1 H Lymph % (Auto) 15.1 L Newton % (Auto) 5.5 Eos % (Auto) 1.1 L Baso % (Auto) 0.2 Gran # 4.25 Lymph # 0.8 L Newton # 0.3 Eos # 0.1 Baso # 0.01 PT 10.6 INR 0.98 APTT 28.2 Sodium 135 Potassium 4.6 Chloride 99 Carbon Dioxide 25 Anion Gap 16 BUN 36 H Creatinine 1.7 H Est GFR ( Amer) 50 Est GFR (Non-Af Amer) 41 Random Glucose 145 H Calcium 9.8 Total Bilirubin 0.5 AST 51 ALT 26 Alkaline Phosphatase 90 Lactate Dehydrogenase 617 Total Creatine Kinase 379 H CK-MB (CK-2) 3.3 CK-MB (CK-2) % Cancelled Troponin I < 0.01 Total Protein 9.3 H Albumin 4.8 Globulin 4.5 Albumin/Globulin Ratio 1.1 Assessment & Plan - Assessment and Plan (Free Text) Assessment: 61yo M admitted for Neck Pain -X-ray showed advanced age related degeneration; most likely advanced osteoarthritis -patient has no warning signs; no loss of sensation in arms/hands, no loss of muscle strength -will control pain and muscle spasms with ibuprofen, cyclobenzaprine, and valium COPD Exacerbation; acute on chronic -IV solumedrol 20mg daily -Breathing treatments PRN and c/w home meds -keep O2 sat above 92% -palliative care consult as patient has been admitted 5-6 times in the past year for COPD exacerbation Chest Pain -Initial troponin negative; will trend -EKG unchanged; tachycardia -will f/u d-dimer -if elevated with order CTA chest with PE protocol or VQ Scan -patient had an echo last year that did not show any signs of diastolic or systolic heart failure -will order echo, f/u results -cardio consult; Dr. Milner; appreciate recs Leg swelling/Pain -will f/u d dimer -b/l US of lower extremities ordered; f/u results KELTON -most likely 2/2 to dehydration -gave 1L of fluids with 100ml/hr NS -will monitor HIV; Chronic -patient states he is undetectable as of last month; states CD4 count is 684 -last year here we have records that he has high viral load and CD4 of 280; will f/u with viral load and CD4 tomorrow as tests apparently cannot be sent out over the weekend -will continue with current ART therapy Diabetes Mellitus, -c/w home meds -RISS -f/u hemoglobin A1C Hepatitis C -c/w current management HTN c/w home meds -echo last year did not show any signs of CHF Prophlaxis HepSC Heart Healthy Diet Pepcid D/w Dr. Kirk Teresa PGY1 Night Float Decision To Admit - Pt Status Changed To: Hospital Disposition Of: Inpatient Admission - Admit Certification Admit to Inpatient:: After my assessment, the patient will require hospitalization for at least two midnights. This is because of the severity of symptoms shown, intensity of services needed, and/or the medical risk in this patient being treated as an outpatient. - . Bed Request Type: Telemetry Admitting Physician: Shannon Bradley <Shannon Bradley - Last Filed: 10/06/16 12:08> Results - Vital Signs Recent Vital Signs: Last Vital Signs Temp 98.4 F 10/06/16 06:00 Pulse 78 10/06/16 09:16 Resp 22 10/06/16 06:00 BP 94/59 L 10/06/16 09:16 Pulse Ox 98 10/06/16 06:00 - Labs Result Diagrams: 10/06/16 05:30 10/05/16 17:00 Labs: Laboratory Results - last 24 hr 10/05/16 10/05/16 10/05/16 19:05 19:20 23:45 WBC RBC Hgb Hct MCV MCH MCHC RDW Plt Count MPV Gran % Lymph % (Auto) Newton % (Auto) Eos % (Auto) Baso % (Auto) Gran # Lymph # Newton # Eos # Baso # pO2 48 VBG pH 7.30 L VBG pCO2 52.0 VBG HCO3 25.6 VBG Total CO2 27.2 VBG O2 Sat (Calc) 84.3 H VBG Base Excess -1.6 L VBG Potassium 5.0 Sodium 134.0 Chloride 102.0 Glucose 148 H Lactate 2.0 FiO2 21.0 POC Glucose (mg/dL) Lactate Dehydrogenase 416 Total Creatine Kinase 288 H CK-MB (CK-2) 3.0 CK-MB (CK-2) % Cancelled Troponin I < 0.01 TSH 3rd Generation Venous Blood Potassium 5.0 Urine Color Yellow Urine Appearance Clear Urine pH 6.0 Ur Specific [place] 1.015 Urine Protein Trace H Urine Glucose (UA) Negative Urine Ketones Negative Urine Blood Trace-intact H Urine Nitrate Negative Urine Bilirubin Negative Urine Urobilinogen 0.2 Ur Leukocyte Esterase Small H Urine RBC 5 - 10 Urine WBC 5 - 10 Ur Epithelial Cells 10 - 12 Amorphous Sediment Small 10/05/16 10/06/16 10/06/16 23:45 05:30 09:00 WBC 3.4 L D RBC 3.66 Hgb 11.0 L Hct 33.4 L MCV 91.3 MCH 30.1 MCHC 32.9 RDW 14.5 Plt Count 237 MPV 9.6 Gran % 51.4 Lymph % (Auto) 32.4 Newton % (Auto) 12.7 H Eos % (Auto) 2.9 Baso % (Auto) 0.6 Gran # 1.74 Lymph # 1.1 L Newton # 0.4 Eos # 0.1 Baso # 0.02 pO2 49 VBG pH 7.35 VBG pCO2 44.0 VBG HCO3 24.3 VBG Total CO2 25.7 VBG O2 Sat (Calc) 85.6 H VBG Base Excess -1.4 L VBG Potassium 4.4 Sodium 137.0 Chloride 108.0 H Glucose 129 H Lactate 0.9 FiO2 21.0 POC Glucose (mg/dL) Lactate Dehydrogenase 564 Total Creatine Kinase 258 H CK-MB (CK-2) 3.4 CK-MB (CK-2) % Cancelled Troponin I < 0.01 TSH 3rd Generation Venous Blood Potassium 4.4 Urine Color Urine Appearance Urine pH Ur Specific [place] Urine Protein Urine Glucose (UA) Urine Ketones Urine Blood Urine Nitrate Urine Bilirubin Urine Urobilinogen Ur Leukocyte Esterase Urine RBC Urine WBC Ur Epithelial Cells Amorphous Sediment 10/06/16 10/06/16 10/06/16 09:00 09:05 11:16 WBC RBC Hgb Hct MCV MCH MCHC RDW Plt Count MPV Gran % Lymph % (Auto) Newton % (Auto) Eos % (Auto) Baso % (Auto) Gran # Lymph # Newton # Eos # Baso # pO2 VBG pH VBG pCO2 VBG HCO3 VBG Total CO2 VBG O2 Sat (Calc) VBG Base Excess VBG Potassium Sodium Chloride Glucose Lactate FiO2 POC Glucose (mg/dL) 217 H 45 L Lactate Dehydrogenase Total Creatine Kinase CK-MB (CK-2) CK-MB (CK-2) % Troponin I TSH 3rd Generation 0.65 Venous Blood Potassium Urine Color Urine Appearance Urine pH Ur Specific [place] Urine Protein Urine Glucose (UA) Urine Ketones Urine Blood Urine Nitrate Urine Bilirubin Urine Urobilinogen Ur Leukocyte Esterase Urine RBC Urine WBC Ur Epithelial Cells Amorphous Sediment 10/06/16 11:58 WBC RBC Hgb Hct MCV MCH MCHC RDW Plt Count MPV Gran % Lymph % (Auto) Newton % (Auto) Eos % (Auto) Baso % (Auto) Gran # Lymph # Newton # Eos # Baso # pO2 VBG pH VBG pCO2 VBG HCO3 VBG Total CO2 VBG O2 Sat (Calc) VBG Base Excess VBG Potassium Sodium Chloride Glucose Lactate FiO2 POC Glucose (mg/dL) 62 L Lactate Dehydrogenase Total Creatine Kinase CK-MB (CK-2) CK-MB (CK-2) % Troponin I TSH 3rd Generation Venous Blood Potassium Urine Color Urine Appearance Urine pH Ur Specific [place] Urine Protein Urine Glucose (UA) Urine Ketones Urine Blood Urine Nitrate Urine Bilirubin Urine Urobilinogen Ur Leukocyte Esterase Urine RBC Urine WBC Ur Epithelial Cells Amorphous Sediment Attending/Attestation - Attestation I have personally seen and examined this patient.: Yes I have fully participated in the care of the patient.: Yes I have reviewed all pertinent clinical information: Yes Notes (Text): 10/06/16 12:07 Patient was seen in room 3 [facility]. Agree with history ,physical examination, assessment and plan..
[2016-10-05 19:32] LABS: URINE AMORPHOUS SEDIMENT SMALL
[2016-10-05 19:46] LABS: VENOUS BLOOD GAS BASE EXCESS -1.6 mmol/L (0.0-2.0)
[2016-10-05] MEDS: Lactobacillus Acidophilus 500 MU Cap PO SCH (19:47)
[2016-10-05 20:50] VITALS: BMI 25.1
[2016-10-05] MEDS ORDERED: Alum-Mag Hydrox-Simethicone Susp (30 mL) PO ONE (21:53)
[2016-10-05] MEDS: oxyCODONE 5 mg Immediate Release Tab PO PRN (22:57)
[2016-10-05] MEDS: Albuterol-Ipratrop 3 mg / 0.5 (3 ml) UD IH SCH (23:49)
[2016-10-06 00:01] LABS: VENOUS BLOOD GAS BASE EXCESS -1.4 mmol/L (0.0-2.0); VENOUS BLOOD PH 7.35 (7.32-7.43)
[2016-10-06 00:28] LABS: TROPONIN I < 0.01 ng/mL
[2016-10-06] MEDS: Sodium Chloride 0.9% 1,000 ML IV SCH ×3 (01:04→06:49)
[2016-10-06] MEDS: Insulin Lispro 1 UNITS/0.01 ML SC SCH ×7 (01:04→21:38)
[2016-10-06] MEDS: Atovaquone 750 mg/5 ml Susp UD PO SCH ×3 (01:04→17:32)
[2016-10-06] MEDS: MethylPREDNISolone 40 mg Vial IVP SCH ×3 (01:05→21:28)
[2016-10-06] MEDS: Non Formulary Medication (Budesonide/Formoterol Fumarate [Symbicort 160-4.5 Mcg Inhaler] 1 IH SCH ×3 (01:06→17:56)
[2016-10-06] MEDS: Albuterol-Ipratrop 3 mg / 0.5 (3 ml) UD IH SCH ×5 (02:43→19:43)
[2016-10-06] MEDS: oxyCODONE 5 mg Immediate Release Tab PO PRN ×4 (03:49→22:12)
[2016-10-06 06:22] VITALS: O2SAT 98
[2016-10-06 06:43] LABS: ADD MANUAL DIFF? NO
[2016-10-06 07:19] LABS: BASO # 0.02 K/mm3 (0.0-2.0); BASO % 0.6 % (0.0-3.0); EOS # 0.1 (0.0-0.7); EOS % 2.9 % (1.5-5.0); GRAN # 1.74 (1.4-6.5); GRAN % 51.4 % (50.0-68.0); HEMATOCRIT 33.4 % (42.0-52.0); LYMPH # 1.1 (1.2-3.4); LYMPH % 32.4 % (22.0-35.0); MEAN CELL VOLUME 91.3 fL (80.0-105.0); MEAN CORPUSCULAR HEMOGLOBIN 30.1 pg (25.0-35.0); MEAN CORPUSCULAR HGB CONC 32.9 g/dl (31.0-37.0); MEAN PLATELET VOLUME 9.6 fl (7.0-11.0); MONO # 0.4 (0.1-0.6); MONO % 12.7 % (1.0-6.0); PLATELET COUNT 237 10^3/uL (120.0-450.0); RED CELL DISTRIBUTION WIDTH 14.5 % (11.5-14.5); WHITE BLOOD COUNT 3.4 10^3/ul (4.5-11.0)
[2016-10-06] MEDS: Lactobacillus Acidophilus 500 MU Cap PO SCH ×2 (09:13→17:32)
[2016-10-06 09:43] LABS: TROPONIN I < 0.01 ng/mL
[2016-10-06] MEDS ORDERED: VALSARTAN PO SCH (10:00)
[2016-10-06] MEDS: Enoxaparin 80 mg Syringe SC SCH ×3 (11:00→22:12)
--- NOTE | 2016-10-06 11:57 | CP.PCM.PN ---
<MingDrejesus - Last Filed: 10/06/16 12:05> Subjective - Date & Time of Evaluation Date of Evaluation: 10/06/16 Time of Evaluation: 10:00 - Subjective Subjective: Pt was seen and examined at bedside. Pt has mild complaints of diffuse neck pain currently that travels to his shoulders but not down his arms. He denies any other complaints at this time. He states his SOB is at baseline. Pt is tolerating diet, and voiding regularly. He admitted to a headache. He denied fever, chills, chest pains, abdominal pains, n/v/d/c. Objective - Vital Signs/Intake and Output Vital Signs (last 24 hours): Temp Pulse Resp BP Pulse Ox 98.4 F 78 22 94/59 L 98 10/06/16 06:00 10/06/16 09:16 10/06/16 06:00 10/06/16 09:16 10/06/16 06:00 Intake and Output: 10/06/16 10/06/16 06:59 18:59 Intake Total 480 Balance 480 - Medications Medications: Current Medications Abacavir Sulfate (Ziagen) 300 mg PO Q12 [facility] Last Admin: 10/06/16 10:23 Dose: 300 mg Acetaminophen (Tylenol 325mg Tab) 650 mg PO Q6H PRN PRN Reason: Fever >100.4 F Albuterol Sulfate (Albuterol 0.083% Inhal Roshni (2.5 Mg/3 Ml) Ud) 2.5 mg IH Q2H PRN PRN Reason: Shortness of Breath Albuterol/Ipratropium (Duoneb 3 Mg/0.5 Mg (3 Ml) Ud) 3 ml IH [id number] [facility] Last Admin: 10/06/16 07:51 Dose: 3 ml Amlodipine Besylate (Norvasc) 5 mg PO DAILY [facility] Last Admin: 10/06/16 09:13 Dose: Not Given Aspirin (Ecotrin) 81 mg PO DAILY [facility] Last Admin: 10/06/16 09:13 Dose: 81 mg Atovaquone (Mepron) 750 mg PO BID [facility] Last Admin: 10/06/16 09:17 Dose: 750 mg Cyclobenzaprine HCl (Flexeril) 10 mg PO Q8H [facility] Last Admin: 10/06/16 03:50 Dose: 10 mg Diazepam (Valium) 5 mg PO Q8H [facility] PRN Reason: Protocol Last Admin: 10/06/16 03:52 Dose: Not Given Enoxaparin Sodium (Lovenox) 80 mg SC Q12H [facility] PRN Reason: Protocol Famotidine (Pepcid) 20 mg PO BID [facility] Last Admin: 10/06/16 09:11 Dose: 20 mg Furosemide (Lasix) 20 mg PO DAILY [facility] Last Admin: 10/06/16 09:12 Dose: Not Given Gabapentin (Neurontin) 300 mg PO TID [facility] PRN Reason: Protocol Last Admin: 10/06/16 09:22 Dose: 300 mg Ibuprofen (Motrin Tab) 600 mg PO Q6H PRN PRN Reason: Pain, Mild (1-3) Insulin Human Lispro (Humalog) 30 units SC BRKDIN [facility] Last Admin: 10/06/16 09:28 Dose: 30 units Insulin Human Lispro (Humalog) 0 units SC ACHS [facility] PRN Reason: Protocol Last Admin: 10/06/16 09:29 Dose: 2 units Lactobacillus Acidophilus (Bacid Acidophilus) 1 cap PO BID [facility] Last Admin: 10/06/16 09:13 Dose: 1 cap Losartan Potassium (Cozaar) 12.5 mg PO DAILY [facility] Last Admin: 10/06/16 09:16 Dose: Not Given Methylprednisolone (Solu-Medrol) 20 mg IVP Q12 [facility] Last Admin: 10/06/16 09:11 Dose: 20 mg Non-Formulary Medication (Budesonide/Formoterol Fumarate [Symbicort 160-4.5 Mcg Inhaler]) 1 aer IH BID [facility] Last Admin: 10/06/16 10:28 Dose: Not Given Oxycodone HCl (Oxycodone Immediate Release Tab) 5 mg PO Q4H PRN PRN Reason: Pain, severe (8-10) Last Admin: 10/06/16 09:14 Dose: 5 mg Spironolactone (Aldactone) 25 mg PO DAILY [facility] Last Admin: 10/06/16 09:15 Dose: Not Given - Labs Labs: 10/06/16 05:30 PT 10.6 Seconds (9.9-11.8) 10/05/16 17:00 INR 0.98 (0.93-1.08) 10/05/16 17:00 APTT 28.2 Seconds (23.7-30.8) 10/05/16 17:00 - Constitutional Appears: Well, No Acute Distress - Head Exam Head Exam: ATRAUMATIC, NORMAL INSPECTION, NORMOCEPHALIC - Eye Exam Eye Exam: EOMI, Normal appearance, PERRL Pupil Exam: NORMAL ACCOMODATION, PERRL - ENT Exam ENT Exam: Mucous Membranes Moist, Normal Exam - Neck Exam Neck Exam: Full ROM, Normal Inspection. absent: Lymphadenopathy - Respiratory Exam Respiratory Exam: Rhonchi, NORMAL BREATHING PATTERN. absent: Wheezes - Cardiovascular Exam Cardiovascular Exam: REGULAR RHYTHM, +S1, +S2. absent: Murmur - GI/Abdominal Exam GI & Abdominal Exam: Soft, Normal Bowel Sounds. absent: Tenderness - Extremities Exam Extremities Exam: Full ROM, Normal Capillary Refill, Normal Inspection. absent : Joint Swelling, Pedal Edema - Back Exam Back Exam: NORMAL INSPECTION - Neurological Exam Neurological Exam: Alert, Awake, CN II-XII Intact, Oriented x3 - Psychiatric Exam Psychiatric exam: Normal Affect, Normal Mood - Skin Skin Exam: Dry, Intact, Normal Color, Warm Assessment and Plan - Assessment and Plan (Free Text) Assessment: 61 M admitted for mild COPD exacerbation and neck pain Neck Pain -X-ray showed advanced age related degeneration; most likely advanced osteoarthritis -patient has no warning signs; no loss of sensation in arms/hands, no loss of muscle strength - flexeril 10mg TID - PT Eval and treat COPD Exacerbation; acute on chronic -IV solumedrol 20mg daily -Breathing treatments PRN and c/w home meds -keep O2 sat above 92% -palliative care consult as patient has been admitted 5-6 times in the past year for COPD exacerbation - no wheezing - D dimer elevated, eval for PE - V/Q scan pending Chest Pain - serial trops negative x3 -EKG unchanged; tachycardia - d - dimer elevated -patient had an echo last year that did not show any signs of diastolic or systolic heart failure -will order echo, f/u results -cardio consult; Dr. Milner; appreciate recs Leg swelling/Pain - elevated d-dimer -b/l US of lower extremities ordered; f/u results [place] -most likely 2/2 to dehydration - pt with good urine output today - will fu HIV; Chronic -patient states he is undetectable as of last month; states CD4 count is 684 -last year here we have records that he has high viral load and CD4 of 280; will f/u with viral load and CD4 tomorrow as tests apparently cannot be sent out over the weekend -will continue with current ART therapy Diabetes Mellitus, -c/w home meds -RISS -f/u hemoglobin A1C Hepatitis C -c/w current management HTN c/w home meds -echo last year did not show any signs of CHF Prophlaxis elevated d dimer - will treat empirically with full dose lovenox until v/q scan Heart Healthy Diet Pepcid Seen reviewed and discussed with attending <Tami MONTALVO,[place] - Last Filed: 10/06/16 14:57> Objective - Vital Signs/Intake and Output Vital Signs (last 24 hours): Temp Pulse Resp BP Pulse Ox 98.7 F 84 19 105/68 98 10/06/16 12:00 10/06/16 12:00 10/06/16 12:00 10/06/16 12:00 10/06/16 06:00 Intake and Output: 10/06/16 10/06/16 06:59 18:59 Intake Total 480 Balance 480 - Medications Medications: Current Medications Abacavir Sulfate (Ziagen) 300 mg PO Q12 [facility] Last Admin: 10/06/16 10:23 Dose: 300 mg Acetaminophen (Tylenol 325mg Tab) 650 mg PO Q6H PRN PRN Reason: Fever >100.4 F Albuterol Sulfate (Albuterol 0.083% Inhal Roshni (2.5 Mg/3 Ml) Ud) 2.5 mg IH Q2H PRN PRN Reason: Shortness of Breath Albuterol/Ipratropium (Duoneb 3 Mg/0.5 Mg (3 Ml) Ud) 3 ml IH [id number] [facility] Last Admin: 10/06/16 14:07 Dose: 3 ml Amlodipine Besylate (Norvasc) 5 mg PO DAILY [facility] Last Admin: 10/06/16 09:13 Dose: Not Given Aspirin (Ecotrin) 81 mg PO DAILY [facility] Last Admin: 10/06/16 09:13 Dose: 81 mg Atovaquone (Mepron) 750 mg PO BID [facility] Last Admin: 10/06/16 09:17 Dose: 750 mg Cyclobenzaprine HCl (Flexeril) 10 mg PO Q8H [facility] Last Admin: 10/06/16 14:13 Dose: 10 mg Diazepam (Valium) 5 mg PO Q8H [facility] PRN Reason: Protocol Last Admin: 10/06/16 14:12 Dose: 5 mg Enoxaparin Sodium (Lovenox) 80 mg SC Q12H [facility] PRN Reason: Protocol Last Admin: 10/06/16 14:15 Dose: Not Given Famotidine (Pepcid) 20 mg PO BID [facility] Last Admin: 10/06/16 09:11 Dose: 20 mg Furosemide (Lasix) 20 mg PO DAILY [facility] Last Admin: 10/06/16 09:12 Dose: Not Given Gabapentin (Neurontin) 300 mg PO TID [facility] PRN Reason: Protocol Last Admin: 10/06/16 14:12 Dose: 300 mg Ibuprofen (Motrin Tab) 600 mg PO Q6H PRN PRN Reason: Pain, Mild (1-3) Insulin Human Lispro (Humalog) 30 units SC BRKDIN [facility] Last Admin: 10/06/16 09:28 Dose: 30 units Insulin Human Lispro (Humalog) 0 units SC ACHS [facility] PRN Reason: Protocol Last Admin: 10/06/16 14:06 Dose: Not Given Lactobacillus Acidophilus (Bacid Acidophilus) 1 cap PO BID [facility] Last Admin: 10/06/16 09:13 Dose: 1 cap Losartan Potassium (Cozaar) 12.5 mg PO DAILY [facility] Last Admin: 10/06/16 09:16 Dose: Not Given Methylprednisolone (Solu-Medrol) 20 mg IVP Q12 [facility] Last Admin: 10/06/16 09:11 Dose: 20 mg Non-Formulary Medication (Budesonide/Formoterol Fumarate [Symbicort 160-4.5 Mcg Inhaler]) 1 aer IH BID [facility] Last Admin: 10/06/16 10:28 Dose: Not Given Oxycodone HCl (Oxycodone Immediate Release Tab) 5 mg PO Q4H PRN PRN Reason: Pain, severe (8-10) Last Admin: 10/06/16 14:11 Dose: 5 mg Spironolactone (Aldactone) 25 mg PO DAILY [facility] Last Admin: 10/06/16 09:15 Dose: Not Given - Labs Labs: 10/06/16 05:30 10/06/16 09:00 PT 10.6 Seconds (9.9-11.8) 10/05/16 17:00 INR 0.98 (0.93-1.08) 10/05/16 17:00 APTT 28.2 Seconds (23.7-30.8) 10/05/16 17:00 Attending/Attestation - Attestation I have personally seen and examined this patient.: Yes I have fully participated in the care of the patient.: Yes I have reviewed all pertinent clinical information, including history, physical exam and plan: Yes Notes (Text): 10/06/16 14:53 Patient was seen and examined with medical safety director .Agreed with resident assessment and plan. 61 year old male with past medical history of COPD, HIV, diabetes, hypertension and ongoing heroin abuse is admitted with neck pain and worsening dyspnea.Neck X ray is negative for acute fracture, showed degenerative changes.There is no focal deficit.Patient D tay is high, refusing CT angio chest, for V/Q scan today, we will follow up results. COPD, wheezing has improved, will switch to oral prednisone in 24 hour Prognosis is guarded due to non compliance and ongoing drug abuse Management plan was discussed in detail with patient Education was provided.
[2016-10-06 12:23] LABS: ALB/GLOB RATIO 1.1 (1.1-1.8); ALKALINE PHOSPHATASE 83 U/L (38-133); ALT/SGPT 36 U/L (7-56); AST/SGOT 57 U/L (15-59); BILIRUBIN,TOTAL 0.6 mg/dL (0.2-1.3); BLOOD UREA NITROGEN 24 mg/dL (7-21); CALCIUM 9.4 mg/dL (8.4-10.5); CARBON DIOXIDE 23 mmol/L (21-33); CHLORIDE 105 mmol/L (98-107); GFR AFRICAN-AMERICAN > 60; GLUCOSE,RANDOM 147 mg/dL (70-110); POTASSIUM 4.6 mmol/L (3.6-5.0); SODIUM 139 mmol/L (132-148); TOTAL PROTEIN 8.1 g/dL (5.8-8.3)
--- NOTE | 2016-10-06 15:14 | NM ---
COMPARISON: Comparison is made to previous chest x-ray dated 10/05/2016 TECHNIQUE: Thirty-four mCi technetium 99-m DTPA 5.1 mCI technetium 99-m MAA administered intravenously. FINDINGS: VENTILATION COMPONENT: Markedly heterogeneous with photopenic foci especially in the right lung. PERFUSION COMPONENT: Matching perfusion defect seen in the mid right lung and in the right lower lung. IMPRESSION: Lowprobability ventilation perfusion scan for pulmonary embolism. Markedly heterogeneous ventilation. Correlate clinically for COPD.
--- NOTE | 2016-10-06 18:07 | CON ---
DATE: 10/06/2016 HISTORY OF PRESENT ILLNESS: The patient refused to give me any history and stated he needs no cardio logist to see him. I relied on the patient's ____ history to the Emergency Room team to the admittin g team. The patient is a 61-year-old male who has history of HIV infection, history of heroin abuse, diabetes mellitus, COPD and hypertension, presented because of 1 week duration of chest pain. The p atient stated that the pain comes on and off and no relieving or exacerbating factors. The patient s tated that his pain is nonexertional. The patient denies any shortness of breath or dyspnea on exert ion. SOCIAL HISTORY: The patient is a smoker and heroin abuser. MEDICATIONS: Albuterol inhaler q. 2 hours, Aldactone 25 mg once a day, Cozaar 12.5 mg once a day, as pirin 81 mg once a day, Flexeril 10 mg once a day, Lasix 20 mg p.o. once a day, Lovenox 80 mg subcuta neous twice a day, Norvasc 5 mg once a day, oxycodone 5 mg q. 6 hours p.r.n., Valium 5 mg p.o. q. 8 h ours. PHYSICAL EXAMINATION: The patient did allow me to examine him. VITAL SIGNS: Blood pressure 105/68, heart rate 84, temperature 98.7, respirations 19. HEENT: Normocephalic. NECK: No JVD. CHEST: Minimal rhonchi. HEART: S1, S2 regular. ABDOMEN: Soft. EXTREMITIES: No edema. Track scott are noted on the patient's forearms. LABORATORY DATA: Hemoglobin and hematocrit 11 and 33.4. White count and platelet count 3.4 and 237, 000. SMA-7: Sodium 135, potassium 4.6, chloride 99, CO2 25, glucose 145, BUN 36, creatinine 1.7. D -dimer is 4697. PT, PTT are within normal limits. EKG reveals sinus tachycardia at rate of 104. Ec hocardiographic study dating back 09/2015 revealed normal left ventricular systolic function with nor mal Doppler study. Cervical spine AP and lateral: Straightening of the normal cervical lordosis may be related to muscle spasm or positioning. Multilevel degenerative changes. Three sets of troponin s are negative. Ventilation perfusion scan and venous Doppler of lower extremities were done, but re ports are still pending. ASSESSMENT: 1. Chest pain, myocardial infarction is ruled out. 2. Sinus tachycardia. 3. Anemia. 4. Human immunodeficiency virus positive. 5. Chronic renal insufficiency. RECOMMENDATIONS: Continue current antiviral medications as well as bronchodilators. Continue Aldact one at 25 mg once a day, Cozaar at 12.5 mg once a day, aspirin 81 mg once a day, Lasix 20 mg once a d ay, Norvasc at 5 mg once a day, Solu-Medrol 20 mg intravenously twice a day. Obtain urine drug scree n, and I will follow both echo and venous Doppler of lower extremity reports. Ghanshyam German MD cc: [id number] TT: 10/06/2016 18:06:20 Confirmation # [id number] Dictation # [id number]
--- NOTE | 2016-10-06 20:02 | US ---
HISTORY: Leg pain and swelling. Evaluate for DVT PHYSICIAN(S): Fabian Infante MD. TECHNIQUE: Duplex sonography and color-flow Doppler with graded compression were used to evaluate the deep venous systems of both lower extremities. FINDINGS: The visualized deep venous systems of both lower extremities are sonographically normal and compressible. Normal wave forms and augmentation are seen. There is no sonographic evidence for deep venous thrombosis in the visualized segments of both lower extremities. IMPRESSION: No sonographic evidence for deep venous thrombosis in the visualized segments of both lower extremities.
--- NOTE | 2016-10-07 00:16 | CARD ---
APPROVED REPORT EKG Measurement Heart [id number] <Conclusion> Sinus tachycardia Possible Left atrial enlargement Borderline ECG
[2016-10-07] MEDS: Albuterol-Ipratrop 3 mg / 0.5 (3 ml) UD IH SCH ×2 (02:23→08:06)
[2016-10-07 02:56] LABS: TOTAL PROTEIN, SERUM 6.7 g/dL (6.1-8.1)
[2016-10-07 06:16] LABS: ADD MANUAL DIFF? NO
[2016-10-07 06:40] LABS: BASO # 0.01 K/mm3 (0.0-2.0); BASO % 0.2 % (0.0-3.0); EOS % 0.2 % (1.5-5.0); GRAN # 4.19 (1.4-6.5); GRAN % 78.2 % (50.0-68.0); HEMATOCRIT 34.1 % (42.0-52.0); MEAN CELL VOLUME 90.5 fL (80.0-105.0); MEAN CORPUSCULAR HEMOGLOBIN 30.2 pg (25.0-35.0); MEAN CORPUSCULAR HGB CONC 33.4 g/dl (31.0-37.0); MEAN PLATELET VOLUME 9.7 fl (7.0-11.0); MONO # 0.1 (0.1-0.6); MONO % 2.4 % (1.0-6.0); PLATELET COUNT 269 10^3/uL (120.0-450.0); RED CELL DISTRIBUTION WIDTH 14.3 % (11.5-14.5); WHITE BLOOD COUNT 5.4 10^3/ul (4.5-11.0)
[2016-10-07 06:57] LABS: ALKALINE PHOSPHATASE 106 U/L (38-133); ALT/SGPT 54 U/L (7-56); AST/SGOT 55 U/L (15-59); BILIRUBIN,TOTAL 0.4 mg/dL (0.2-1.3); BLOOD UREA NITROGEN 28 mg/dL (7-21); CALCIUM 9.2 mg/dL (8.4-10.5); CARBON DIOXIDE 22 mmol/L (21-33); CHLORIDE 106 mmol/L (98-107); GFR AFRICAN-AMERICAN > 60; GLUCOSE,RANDOM 166 mg/dL (70-110); POTASSIUM 5.1 mmol/L (3.6-5.0); SODIUM 137 mmol/L (132-148); TOTAL PROTEIN 7.6 g/dL (5.8-8.3)
[2016-10-07] MEDS: Insulin Lispro 1 UNITS/0.01 ML SC SCH ×3 (08:31→11:37)
[2016-10-07] MEDS: Non Formulary Medication (Budesonide/Formoterol Fumarate [Symbicort 160-4.5 Mcg Inhaler] 1 IH SCH (09:48)
[2016-10-07] MEDS: Lactobacillus Acidophilus 500 MU Cap PO SCH (09:48)
[2016-10-07] MEDS: Atovaquone 750 mg/5 ml Susp UD PO SCH (09:49)
[2016-10-07] MEDS: MethylPREDNISolone 40 mg Vial IVP SCH (09:50)
[2016-10-07 09:51] VITALS: PULSE 86
[2016-10-07] MEDS: oxyCODONE 5 mg Immediate Release Tab PO PRN (10:02)
[2016-10-07] MEDS: Enoxaparin 80 mg Syringe SC SCH (11:31)
[2016-10-07 11:35] LABS: BETA 1 GLOBULIN 0.4 g/dL (0.4-0.6); BETA 2 GLOBULIN 0.4 g/dL (0.2-0.5)
[2016-10-07 12:14] VITALS: BP 127/73; RESP 20; TEMP 97.1
--- NOTE | 2016-10-07 12:59 | CP.PCM.DIS ---
<Narayan Lai - Last Filed: 10/07/16 19:11> Provider - Provider Date of Admission: 10/05/16 18:16 Attending physician: Ventura Garrett MD Consults: Cardiology - Dr. German Palliative Care - Itzel Donnelly Time Spent in preparation of Discharge (in minutes): 45 Hospital Course - Lab Results Lab Results: Micro Results 10/05/16 19:30 Blood-Venous Blood Culture - Preliminary NO GROWTH AFTER 24 HOURS 10/05/16 19:00 Blood-Venous Blood Culture - Preliminary NO GROWTH AFTER 24 HOURS Most Recent Lab Values WBC 5.4 10^3/ul (4.5-11.0) D 10/07/16 05:30 RBC 3.77 10^6/uL (3.5-6.1) 10/07/16 05:30 Hgb 11.4 gm/dL (14.0-18.0) L 10/07/16 05:30 Hct 34.1 % (42.0-52.0) L 10/07/16 05:30 MCV 90.5 fL (80.0-105.0) 10/07/16 05:30 MCH 30.2 pg (25.0-35.0) 10/07/16 05:30 MCHC 33.4 g/dl (31.0-37.0) 10/07/16 05:30 RDW 14.3 % (11.5-14.5) 10/07/16 05:30 Plt Count 269 10^3/uL (120.0-450.0) 10/07/16 05:30 MPV 9.7 fl (7.0-11.0) 10/07/16 05:30 Gran % 78.2 % (50.0-68.0) H 10/07/16 05:30 Lymph % (Auto) 19.0 % (22.0-35.0) L 10/07/16 05:30 Ellsworth % (Auto) 2.4 % (1.0-6.0) 10/07/16 05:30 Eos % (Auto) 0.2 % (1.5-5.0) L 10/07/16 05:30 Baso % (Auto) 0.2 % (0.0-3.0) 10/07/16 05:30 Gran # 4.19 (1.4-6.5) 10/07/16 05:30 Lymph # 1.0 (1.2-3.4) L 10/07/16 05:30 Ellsworth # 0.1 (0.1-0.6) 10/07/16 05:30 Eos # 0.0 (0.0-0.7) 10/07/16 05:30 Baso # 0.01 K/mm3 (0.0-2.0) 10/07/16 05:30 PT 10.6 Seconds (9.9-11.8) 10/05/16 17:00 INR 0.98 (0.93-1.08) 10/05/16 17:00 APTT 28.2 Seconds (23.7-30.8) 10/05/16 17:00 D-Dimer, Quantitative 4697 ng/mlDDU (0-243) H 10/05/16 17:00 pO2 49 mm/Hg (30-55) 10/05/16 23:45 VBG pH 7.35 (7.32-7.43) 10/05/16 23:45 VBG pCO2 44.0 (40-60) 10/05/16 23:45 VBG HCO3 24.3 mmol/l (21-28) 10/05/16 23:45 VBG Total CO2 25.7 mmol.L (22-28) 10/05/16 23:45 VBG O2 Sat (Calc) 85.6 % (40-65) H 10/05/16 23:45 VBG Base Excess -1.4 mmol/L (0.0-2.0) L 10/05/16 23:45 VBG Potassium 4.4 mmol/L (3.6-5.2) 10/05/16 23:45 Sodium 137.0 mmol/L (132-148) 10/05/16 23:45 Chloride 108.0 mmol/L (98-107) H 10/05/16 23:45 Glucose 129 mg/dl (75-110) H 10/05/16 23:45 Lactate 0.9 mmol/L (0.7-2.1) 10/05/16 23:45 FiO2 21.0 % 10/05/16 23:45 Sodium 137 mmol/L (132-148) 10/07/16 05:30 Potassium 5.1 mmol/L (3.6-5.0) H 10/07/16 05:30 Chloride 106 mmol/L (98-107) 10/07/16 05:30 Carbon Dioxide 22 mmol/L (21-33) 10/07/16 05:30 Anion Gap 14 (10-20) 10/07/16 05:30 BUN 28 mg/dL (7-21) H 10/07/16 05:30 Creatinine 1.3 mg/dL (0.5-1.4) 10/07/16 05:30 Est GFR ( Amer) > 60 10/07/16 05:30 Est GFR (Non-Af Amer) 56 10/07/16 05:30 POC Glucose (mg/dL) 161 mg/dL (65-110) H 10/07/16 11:08 Random Glucose 166 mg/dL (70-110) H 10/07/16 05:30 Hemoglobin A1c 8.5 % (4.2-6.5) H 10/06/16 09:00 Calcium 9.2 mg/dL (8.4-10.5) 10/07/16 05:30 Total Bilirubin 0.4 mg/dL (0.2-1.3) 10/07/16 05:30 AST 55 U/L (15-59) 10/07/16 05:30 ALT 54 U/L (7-56) 10/07/16 05:30 Alkaline Phosphatase 106 U/L (38-133) 10/07/16 05:30 Lactate Dehydrogenase 564 U/L (333-699) 10/06/16 09:00 Total Creatine Kinase 258 U/L (35-230) H 10/06/16 09:00 CK-MB (CK-2) 3.4 ng/mL (0.0-3.6) 10/06/16 09:00 CK-MB (CK-2) % Cancelled 10/05/16 17:00 Troponin I < 0.01 ng/mL 10/06/16 09:00 Total Protein 7.6 g/dL (5.8-8.3) 10/07/16 05:30 Total Protein (PEP) 6.7 g/dL (6.1-8.1) 10/06/16 05:30 Albumin 3.7 g/dL (3.0-4.8) 10/07/16 05:30 Albumin (PEP) 3.4 g/dL (3.8-4.8) L 10/06/16 05:30 Globulin 3.8 gm/dL 10/07/16 05:30 Albumin/Globulin Ratio 1.0 (1.1-1.8) L 10/07/16 05:30 Bfxbi-5-Drzabguqa 0.4 g/dL (0.2-0.3) H 10/06/16 05:30 Nwypf-9-Fdhvuqwvu 1.2 g/dL (0.5-0.9) H 10/06/16 05:30 Puio-0-Uzctacif 0.4 g/dL (0.4-0.6) 10/06/16 05:30 Rsbh-6-Pxmlmsln 0.4 g/dL (0.2-0.5) 10/06/16 05:30 Gamma Globulins 1.0 g/dL (0.8-1.7) 10/06/16 05:30 Abnorm Protein Band 1 TEST NOT PERFORMED 10/06/16 05:30 Abnorm Protein Band 2 TEST NOT PERFORMED 10/06/16 05:30 Abnorm Protein Band 3 TEST NOT PERFORMED 10/06/16 05:30 TSH 3rd Generation 0.65 mIU/mL (0.46-4.68) 10/06/16 09:00 Venous Blood Potassium 4.4 mmol/L (3.6-5.2) 10/05/16 23:45 Urine Color Yellow (YELLOW) 10/05/16 19:05 Urine Appearance Clear (CLEAR) 10/05/16 19:05 Urine pH 6.0 (4.7-8.0) 10/05/16 19:05 Ur Specific Pound 1.015 (1.005-1.035) 10/05/16 19:05 Urine Protein Trace mg/dL (<30 mg/dL) H 10/05/16 19:05 Urine Glucose (UA) Negative mg/dL (NEGATIVE) 10/05/16 19:05 Urine Ketones Negative mg/dL (NEGATIVE) 10/05/16 19:05 Urine Blood Trace-intact (NEGATIVE) H 10/05/16 19:05 Urine Nitrate Negative (NEGATIVE) 10/05/16 19:05 Urine Bilirubin Negative (NEGATIVE) 10/05/16 19:05 Urine Urobilinogen 0.2 E.U./dL (<1 E.U./dL) 10/05/16 19:05 Ur Leukocyte Esterase Small Nash/uL (NEGATIVE) H 10/05/16 19:05 Urine RBC 5 - 10 /hpf (0-2) 10/05/16 19:05 Urine WBC 5 - 10 /hpf (0-6) 10/05/16 19:05 Ur Epithelial Cells 10 - 12 /hpf (0-5) 10/05/16 19:05 Amorphous Sediment Small 10/05/16 19:05 Urine Opiates Screen Positive (NEGATIVE) H 10/07/16 06:00 Urine Methadone Screen Negative (NEGATIVE) 10/07/16 06:00 Ur Barbiturates Screen Negative (NEGATIVE) 10/07/16 06:00 Ur Phencyclidine Scrn Negative (NEGATIVE) 10/07/16 06:00 Ur Amphetamines Screen Negative (NEGATIVE) 10/07/16 06:00 U Benzodiazepines Scrn Negative (NEGATIVE) 10/07/16 06:00 U Oth Cocaine Metabols Negative (NEGATIVE) 10/07/16 06:00 U Cannabinoids Screen Negative (NEGATIVE) 10/07/16 06:00 COLE & SPEP Interp See note 10/06/16 05:30 - Hospital Course Hospital Course: Pt is a 61 year old -[place] male with a PMHx of HIV on HAART therapy who states he is undetectable, nasal heroin abuse, Diabetes Mellitus, Hepatitis C, COPD, HTN, who presents to the ED with complaints of shortness of breath which is at his baseline and neck pain. Pt is a frequent visitor to [facility] [place]. He reports that he does not feel that he has improved, and he is still short of breath, with clear sputum, and with neck pain that does not radiate anywhere down hands no numbess no tingling no loss of muscle strength or sensation. Pt also reports that he has a headache. Pt reports snorting 1 bag of heroin per day for pain. Admited to lower extremity swelling and pain. Patient states his legs have been swelling more than normal with pain. On 2L NC at all times, never been intubated. The patient was explained that his D-Dimer was very elevated and it was extremely concerned for either a blood clot in his legs or in his lungs which are both emergency conditions that could kill the patient within minutes. The patient was educated in depth about the risks of blood clots and the patient was seen packing up his bags to leave the hospital and was taking out his IV as the patient was very agitated, however later calmed down and agreed to neda admitted. Pt was admitted for sob secondary to likely copd exacerbation however with an elevated d-dimer, PE needed to be ruled out. V /q scan was ordered as the patient refused CTA. v/q scan demonstrated a very low possibility of a PE. Pt's sob was likely attributed to acute on chronic COPD exacerbation and subsequently was administered IV solumedrol 20mg daily and breathing treatments PRN with target of maintaining o2 sats >90%. Palliative care was consulted as patient has been admitted 5-6 times in the past year for COPD exacerbation. Pt's concerns for neck pain was then further investigated. X-ray showed advanced age related degeneration; most likely advanced osteoarthritis. patient has no warning signs; no loss of sensation in arms/hands, no loss of muscle strength. Pt tolerated physical therapy and noted mild relief with muscle relaxants. Pt had complaints of chest pains and workup was initated at time of admission. Cardiology was consulted, trops were trended and resulted as negative . Pt refused echo. Pt had an echo last year that did not show any signs of diastolic or systolic heart failure. Concerning the pts Leg swelling/Pain and an elevated d-dimer b/l US of lower extremities ordered; however did not show any evidence of DVT. Pt was adamant about going home as he had to make arrangements for his sister's . He was clinically improving at time of discharge. Upon discharge pt was to fu with PMD within a week or with [facility] [place] clinic within 1 week .Pt was to fu with Dr. German Cardiology for fu echo and cardiac workup within 1 week. Pt was to continue his home meds in addition to a prednisone taper and fllexeril for neck pain. Discharge Exam - Head Exam Head Exam: ATRAUMATIC, NORMAL INSPECTION, NORMOCEPHALIC - Eye Exam Eye Exam: EOMI, Normal appearance, PERRL Pupil Exam: NORMAL ACCOMODATION, PERRL - ENT Exam ENT Exam: Mucous Membranes Moist - Neck Exam Neck exam: Full Rom, Tenderness Additional comments: diffuse neck pain - Respiratory Exam Respiratory Exam: Rhonchi, NORMAL BREATHING PATTERN. absent: Wheezes - Cardiovascular Exam Cardiovascular Exam: REGULAR RHYTHM, +S1, +S2 - GI/Abdominal Exam GI & Abdominal Exam: Normal Bowel Sounds, Soft. absent: Tenderness - Extremities Exam Extremities exam: pedal edema - Neurological Exam Neurological exam: Alert, CN II-XII Intact, Normal Gait, Oriented x3, Reflexes Normal - Psychiatric Exam Psychiatric exam: Agitated - Skin Skin Exam: Dry, Intact, Normal Color, Warm Discharge Plan - Discharge Medications Prescriptions: Cyclobenzaprine [Cyclobenzaprine HCl] 10 mg PO TID PRN #21 tab PRN Reason: Pain, Moderate (4-7) Methylprednisolone [Medrol Dose Pack (21 tabs)] See Taper PO DAILY #21 mg - Follow Up Plan Condition: STABLE Disposition: HOME/ ROUTINE Instructions: Chest Pain (DC) Additional Instructions: 1. Pt is to fu with PMD within 3-5 days 2. Pt is to fu with Graphic Art Designer as per PMD within 1 week 3. Pt is welcomed to return to [facility] [place] [facility] ED is symptoms change or worsen <Tami MONTALVO,Ventura - Last Filed: 10/10/16 07:52> Provider - Provider Date of Admission: 10/05/16 18:16 Attending physician: Ventura Garrett MD Hospital Course - Lab Results Lab Results: Micro Results 10/05/16 19:30 Blood-Venous Blood Culture - Preliminary NO GROWTH AFTER 4 DAYS 10/05/16 19:00 Blood-Venous Blood Culture - Preliminary NO GROWTH AFTER 4 DAYS 10/05/16 19:05 Urine,Clean Catch Urine Culture - Final 10-50,000 CFU/ML. MULTIPLE SPECIES. PROBABLE CONTAMINATION. Most Recent Lab Values WBC 5.4 10^3/ul (4.5-11.0) D 10/07/16 05:30 RBC 3.77 10^6/uL (3.5-6.1) 10/07/16 05:30 Hgb 11.4 gm/dL (14.0-18.0) L 10/07/16 05:30 Hct 34.1 % (42.0-52.0) L 10/07/16 05:30 MCV 90.5 fL (80.0-105.0) 10/07/16 05:30 MCH 30.2 pg (25.0-35.0) 10/07/16 05:30 MCHC 33.4 g/dl (31.0-37.0) 10/07/16 05:30 RDW 14.3 % (11.5-14.5) 10/07/16 05:30 Plt Count 269 10^3/uL (120.0-450.0) 10/07/16 05:30 MPV 9.7 fl (7.0-11.0) 10/07/16 05:30 Gran % 78.2 % (50.0-68.0) H 10/07/16 05:30 Lymph % (Auto) 19.0 % (22.0-35.0) L 10/07/16 05:30 Ellsworth % (Auto) 2.4 % (1.0-6.0) 10/07/16 05:30 Eos % (Auto) 0.2 % (1.5-5.0) L 10/07/16 05:30 Baso % (Auto) 0.2 % (0.0-3.0) 10/07/16 05:30 Gran # 4.19 (1.4-6.5) 10/07/16 05:30 Lymph # 1.0 (1.2-3.4) L 10/07/16 05:30 Ellsworth # 0.1 (0.1-0.6) 10/07/16 05:30 Eos # 0.0 (0.0-0.7) 10/07/16 05:30 Baso # 0.01 K/mm3 (0.0-2.0) 10/07/16 05:30 PT 10.6 Seconds (9.9-11.8) 10/05/16 17:00 INR 0.98 (0.93-1.08) 10/05/16 17:00 APTT 28.2 Seconds (23.7-30.8) 10/05/16 17:00 D-Dimer, Quantitative 4697 ng/mlDDU (0-243) H 10/05/16 17:00 pO2 49 mm/Hg (30-55) 10/05/16 23:45 VBG pH 7.35 (7.32-7.43) 10/05/16 23:45 VBG pCO2 44.0 (40-60) 10/05/16 23:45 VBG HCO3 24.3 mmol/l (21-28) 10/05/16 23:45 VBG Total CO2 25.7 mmol.L (22-28) 10/05/16 23:45 VBG O2 Sat (Calc) 85.6 % (40-65) H 10/05/16 23:45 VBG Base Excess -1.4 mmol/L (0.0-2.0) L 10/05/16 23:45 VBG Potassium 4.4 mmol/L (3.6-5.2) 10/05/16 23:45 Sodium 137.0 mmol/L (132-148) 10/05/16 23:45 Chloride 108.0 mmol/L (98-107) H 10/05/16 23:45 Glucose 129 mg/dl (75-110) H 10/05/16 23:45 Lactate 0.9 mmol/L (0.7-2.1) 10/05/16 23:45 FiO2 21.0 % 10/05/16 23:45 Sodium 137 mmol/L (132-148) 10/07/16 05:30 Potassium 5.1 mmol/L (3.6-5.0) H 10/07/16 05:30 Chloride 106 mmol/L (98-107) 10/07/16 05:30 Carbon Dioxide 22 mmol/L (21-33) 10/07/16 05:30 Anion Gap 14 (10-20) 10/07/16 05:30 BUN 28 mg/dL (7-21) H 10/07/16 05:30 Creatinine 1.3 mg/dL (0.5-1.4) 10/07/16 05:30 Est GFR ( Amer) > 60 10/07/16 05:30 Est GFR (Non-Af Amer) 56 10/07/16 05:30 POC Glucose (mg/dL) 161 mg/dL (65-110) H 10/07/16 11:08 Random Glucose 166 mg/dL (70-110) H 10/07/16 05:30 Hemoglobin A1c 8.5 % (4.2-6.5) H 10/06/16 09:00 Calcium 9.2 mg/dL (8.4-10.5) 10/07/16 05:30 Total Bilirubin 0.4 mg/dL (0.2-1.3) 10/07/16 05:30 AST 55 U/L (15-59) 10/07/16 05:30 ALT 54 U/L (7-56) 10/07/16 05:30 Alkaline Phosphatase 106 U/L (38-133) 10/07/16 05:30 Lactate Dehydrogenase 564 U/L (333-699) 10/06/16 09:00 Total Creatine Kinase 258 U/L (35-230) H 10/06/16 09:00 CK-MB (CK-2) 3.4 ng/mL (0.0-3.6) 10/06/16 09:00 CK-MB (CK-2) % Cancelled 10/05/16 17:00 Troponin I < 0.01 ng/mL 10/06/16 09:00 Total Protein 7.6 g/dL (5.8-8.3) 10/07/16 05:30 Total Protein (PEP) 6.7 g/dL (6.1-8.1) 10/06/16 05:30 Albumin 3.7 g/dL (3.0-4.8) 10/07/16 05:30 Albumin (PEP) 3.4 g/dL (3.8-4.8) L 10/06/16 05:30 Globulin 3.8 gm/dL 10/07/16 05:30 Albumin/Globulin Ratio 1.0 (1.1-1.8) L 10/07/16 05:30 Pmgoo-5-Dejivbicy 0.4 g/dL (0.2-0.3) H 10/06/16 05:30 Yqdng-5-Glwsxomii 1.2 g/dL (0.5-0.9) H 10/06/16 05:30 Xfzh-5-Dymmhjct 0.4 g/dL (0.4-0.6) 10/06/16 05:30 Frki-7-Biptuqop 0.4 g/dL (0.2-0.5) 10/06/16 05:30 Gamma Globulins 1.0 g/dL (0.8-1.7) 10/06/16 05:30 Abnorm Protein Band 1 TEST NOT PERFORMED 10/06/16 05:30 Abnorm Protein Band 2 TEST NOT PERFORMED 10/06/16 05:30 Abnorm Protein Band 3 TEST NOT PERFORMED 10/06/16 05:30 TSH 3rd Generation 0.65 mIU/mL (0.46-4.68) 10/06/16 09:00 Venous Blood Potassium 4.4 mmol/L (3.6-5.2) 10/05/16 23:45 Urine Color Yellow (YELLOW) 10/05/16 19:05 Urine Appearance Clear (CLEAR) 10/05/16 19:05 Urine pH 6.0 (4.7-8.0) 10/05/16 19:05 Ur Specific Pound 1.015 (1.005-1.035) 10/05/16 19:05 Urine Protein Trace mg/dL (<30 mg/dL) H 10/05/16 19:05 Urine Glucose (UA) Negative mg/dL (NEGATIVE) 10/05/16 19:05 Urine Ketones Negative mg/dL (NEGATIVE) 10/05/16 19:05 Urine Blood Trace-intact (NEGATIVE) H 10/05/16 19:05 Urine Nitrate Negative (NEGATIVE) 10/05/16 19:05 Urine Bilirubin Negative (NEGATIVE) 10/05/16 19:05 Urine Urobilinogen 0.2 E.U./dL (<1 E.U./dL) 10/05/16 19:05 Ur Leukocyte Esterase Small Nash/uL (NEGATIVE) H 10/05/16 19:05 Urine RBC 5 - 10 /hpf (0-2) 10/05/16 19:05 Urine WBC 5 - 10 /hpf (0-6) 10/05/16 19:05 Ur Epithelial Cells 10 - 12 /hpf (0-5) 10/05/16 19:05 Amorphous Sediment Small 10/05/16 19:05 Urine Opiates Screen Positive (NEGATIVE) H 10/07/16 06:00 Urine Methadone Screen Negative (NEGATIVE) 10/07/16 06:00 Ur Barbiturates Screen Negative (NEGATIVE) 10/07/16 06:00 Ur Phencyclidine Scrn Negative (NEGATIVE) 10/07/16 06:00 Ur Amphetamines Screen Negative (NEGATIVE) 10/07/16 06:00 U Benzodiazepines Scrn Negative (NEGATIVE) 10/07/16 06:00 U Oth Cocaine Metabols Negative (NEGATIVE) 10/07/16 06:00 U Cannabinoids Screen Negative (NEGATIVE) 10/07/16 06:00 COLE & SPEP Interp See note 10/06/16 05:30 Absolute Lymphs (Flow) 1262 Cells/mcL (850-3900) 10/06/16 09:00 % CD4 Cells 41 Percent (30-61) 10/06/16 09:00 Absolute CD4 Count 515 Cells/mcL (490-1740) 10/06/16 09:00 T-Help/Suppress Ratio 1.12 Ratio (0.86-5.00) 10/06/16 09:00 % CD8 Cells 36 Percent (12-42) 10/06/16 09:00 Absolute CD8 Count 458 Cells/mcL (180-1170) 10/06/16 09:00 HIV-1 Antibody Positive (Negative) H 10/06/16 09:00 HIV-1 RNA Qnt (RT-PCR) <1.30 detected (<1.30) H 10/06/16 09:00 HIV-2 Antibody Negative (Negative) 10/06/16 09:00 HIV 1&2 Ag/Ab, 4th Gen Reactive (Nonreactive) H 10/06/16 09:00 Attending/Attestation - Attestation I have personally seen and examined this patient.: Yes I have fully participated in the care of the patient.: Yes I have reviewed all pertinent clinical information, including history, physical exam and plan: Yes Notes (Text): 10/10/16 07:49 Patient was seen and examined with medical corps officer .Agreed with resident assessment and plan. 61 year old male with past medical history of COPD, HIV, diabetes, hypertension and ongoing heroin abuse is admitted with neck pain and worsening dyspnea.Neck X ray is negative for acute fracture, showed degenerative changes.There is no focal deficit.Patient D dimmer is high,Veous doppler was negative for DVT.Patient refused CT angio chest, V/Q scan was low probability.Patient was evaluated by cardiology.Echo was recommended.Patient refused Echo. COPD, wheezing has improved, patent is refusing oral steroid, and wants to be discharged .Prescription was written for oral steroid and need of compliance with medication was discussed. Prognosis is guarded due to non compliance and ongoing drug abuse Management plan was discussed in detail with patient Education was provided.
--- NOTE | 2016-10-07 13:39 | PN ---
DATE: 10/07/2016 The patient denies chest pain. PHYSICAL EXAMINATION: VITAL SIGNS: Blood pressure 127/73, heart rate 86, temperature 97.1, respirations 20. HEENT: Normocephalic. CHEST: Bilateral rhonchi. HEART: S1, S2 regular. EXTREMITIES: No edema. LABORATORIES: Hemoglobin and hematocrit 11.4 and 34.1. White count and platelet count are within no rmal limit. Today's potassium 5.1, glucose 166. Official report of ventilation perfusion scan is lo w probability for PE and venous Doppler of the lower extremity, no DVT. ASSESSMENT: 1. Chest pain. Myocardial infarction is ruled out. 2. Human immunodeficiency virus positive. 3. Sinus tachycardia. 4. Anemia. 5. Chronic obstructive pulmonary disease. RECOMMENDATIONS: Continue current conservative medical approach. No invasive cardiac workup is roberto cated at this time. Ghanshyam German MD cc: [id number] TT: 10/07/2016 13:39:09 Confirmation # [id number] Dictation # [id number]
--- NOTE | 2016-10-07 13:52 | CP.PCM.CON ---
History of Present Illness - History of Present Illness History of Present Illness: Palliative consult requested by Dr Nneka Teresa Reason: Advance care planning 61 year old male who presented with complaints of shortness of breath and neck pain PMHx: DM, Hep. C, HIV on HAART, substance abuse(snorts heroin),COPD, osteomyelitis. Family History: HTN,DM. Social History: Smoker, substance abuse. Advance Care Planning: Does not have an Advanced Directive. Review of Systems: As per HPI, otherwise unremarkable Past Patient History - Infectious Disease Hx of Infectious Diseases: None - Tetanus Immunizations Tetanus Immunization: Unknown - Past Medical History & Family History Past Medical History?: Yes - Past Social History Smoking Status: Former Smoker - CARDIAC Hx Hypertension: Yes - PULMONARY Hx Chronic Obstructive Pulmonary Disease (COPD): Yes (on O2 via [place] @ 2lpm) - NEUROLOGICAL Hx Neurological Disorder: No - HEENT Hx HEENT Problems: No - RENAL Hx Chronic Kidney Disease: No - ENDOCRINE/METABOLIC Hx Diabetes Mellitus Type 1: Yes Hx Diabetes Mellitus Type 2: Yes - HEMATOLOGICAL/ONCOLOGICAL Hx Hepatitis C: Yes - INTEGUMENTARY Hx Dermatological Problems: No - MUSCULOSKELETAL/RHEUMATOLOGICAL Hx Falls: No - GASTROINTESTINAL Hx Pancreatitis: Yes - GENITOURINARY/GYNECOLOGICAL Hx Genitourinary Disorders: No - PSYCHIATRIC Hx Psychophysiologic Disorder: No - SURGICAL HISTORY Hx Orthopedic Surgery: Yes (RT KNEE) - ANESTHESIA Hx Anesthesia: Yes Hx Anesthesia Reactions: No Hx Malignant Hyperthermia: No Meds Home Medications: Home Medication List Medication Instructions Recorded Confirmed Type Cyclobenzaprine [Cyclobenzaprine 10 mg PO TID PRN #21 tab 10/07/16 Rx HCl] Methylprednisolone [Medrol Dose See Taper PO DAILY #21 mg 10/07/16 Rx Pack (21 tabs)] Allergies/Adverse Reactions: Allergies Allergy/AdvReac Type Severity Reaction Status Date / Time No Known Allergies Allergy Verified 10/05/16 16:23 - Medications Medications: Current Medications Abacavir Sulfate (Ziagen) 300 mg PO Q12 [facility] Last Admin: 10/07/16 09:50 Dose: 300 mg Acetaminophen (Tylenol 325mg Tab) 650 mg PO Q6H PRN PRN Reason: Fever >100.4 F Albuterol Sulfate (Albuterol 0.083% Inhal Roshni (2.5 Mg/3 Ml) Ud) 2.5 mg IH Q2H PRN PRN Reason: Shortness of Breath Albuterol/Ipratropium (Duoneb 3 Mg/0.5 Mg (3 Ml) Ud) 3 ml IH [id number] [facility] Last Admin: 10/07/16 08:06 Dose: 3 ml Amlodipine Besylate (Norvasc) 5 mg PO DAILY [facility] Last Admin: 10/07/16 09:50 Dose: 5 mg Aspirin (Ecotrin) 81 mg PO DAILY [facility] Last Admin: 10/07/16 09:49 Dose: 81 mg Atovaquone (Mepron) 750 mg PO BID [facility] Last Admin: 10/07/16 09:49 Dose: 750 mg Cyclobenzaprine HCl (Flexeril) 10 mg PO Q8H [facility] Last Admin: 10/07/16 11:38 Dose: 10 mg Diazepam (Valium) 5 mg PO Q8H [facility] PRN Reason: Protocol Last Admin: 10/07/16 11:41 Dose: 5 mg Enoxaparin Sodium (Lovenox) 80 mg SC Q12H [facility] PRN Reason: Protocol Last Admin: 10/07/16 11:31 Dose: 80 mg Famotidine (Pepcid) 20 mg PO BID [facility] Last Admin: 10/07/16 09:50 Dose: 20 mg Furosemide (Lasix) 20 mg PO DAILY [facility] Last Admin: 10/07/16 09:49 Dose: 20 mg Gabapentin (Neurontin) 300 mg PO TID [facility] PRN Reason: Protocol Last Admin: 10/07/16 09:49 Dose: 300 mg Ibuprofen (Motrin Tab) 600 mg PO Q6H PRN PRN Reason: Pain, Mild (1-3) Insulin Human Lispro (Humalog) 30 units SC BRKDIN [facility] Last Admin: 10/07/16 08:31 Dose: 30 units Insulin Human Lispro (Humalog) 0 units SC ACHS [facility] PRN Reason: Protocol Last Admin: 10/07/16 11:37 Dose: 1 units Lactobacillus Acidophilus (Bacid Acidophilus) 1 cap PO BID [facility] Last Admin: 10/07/16 09:48 Dose: 1 cap Losartan Potassium (Cozaar) 12.5 mg PO DAILY [facility] Last Admin: 10/07/16 09:48 Dose: 12.5 mg Methylprednisolone (Solu-Medrol) 20 mg IVP Q12 [facility] Last Admin: 10/07/16 09:50 Dose: 20 mg Non-Formulary Medication (Budesonide/Formoterol Fumarate [Symbicort 160-4.5 Mcg Inhaler]) 1 aer IH BID [facility] Last Admin: 10/07/16 09:48 Dose: Not Given Oxycodone HCl (Oxycodone Immediate Release Tab) 5 mg PO Q4H PRN PRN Reason: Pain, severe (8-10) Last Admin: 10/07/16 10:02 Dose: 5 mg Spironolactone (Aldactone) 25 mg PO DAILY [facility] Last Admin: 10/07/16 09:48 Dose: 25 mg Physical Exam - Constitutional Appears: No Acute Distress, Chronically Ill - Head Exam Head Exam: NORMAL INSPECTION - Eye Exam Eye Exam: Normal appearance, PERRL - ENT Exam ENT Exam: Mucous Membranes Moist, Normal Oropharynx - Neck Exam Neck exam: Positive for: Normal Inspection - Respiratory Exam Respiratory Exam: Decreased Breath Sounds - Cardiovascular Exam Cardiovascular Exam: REGULAR RHYTHM, +S1, +S2 - GI/Abdominal Exam GI & Abdominal Exam: Normal Bowel Sounds, Soft - Extremities Exam Additional comments: 1+ bilateral lower extremity edema - Back Exam Back exam: NORMAL INSPECTION - Neurological Exam Neurological exam: Alert, Oriented x3 - Skin Skin Exam: Dry, Warm - Additional Findings Additional findings: Palliative performance scale rating 50% Results - Vital Signs Recent Vital Signs: Last Vital Signs Temp 97.1 F L 10/07/16 12:00 Pulse 86 10/07/16 12:00 Resp 20 10/07/16 12:00 BP 127/73 10/07/16 12:00 Pulse Ox 98 10/06/16 06:00 - Labs Result Diagrams: 10/07/16 05:30 10/07/16 05:30 Labs: Laboratory Results - last 24 hr 10/06/16 10/06/16 10/06/16 05:30 09:00 16:38 WBC RBC Hgb Hct MCV MCH MCHC RDW Plt Count MPV Gran % Lymph % (Auto) [place] % (Auto) Eos % (Auto) Baso % (Auto) Gran # Lymph # [place] # Eos # Baso # Sodium Potassium Chloride Carbon Dioxide Anion Gap BUN Creatinine Est GFR ( Amer) Est GFR (Non-Af Amer) POC Glucose (mg/dL) 242 H Random Glucose Hemoglobin A1c 8.5 H Calcium Total Bilirubin AST ALT Alkaline Phosphatase Total Protein Total Protein (PEP) 6.7 Albumin Albumin (PEP) 3.4 L Globulin Albumin/Globulin Ratio Qjtei-5-Kidmtzaoq 0.4 H Siwvs-1-Avucqhthf 1.2 H Bhmq-3-Shveewrd 0.4 Gisj-7-Jeanmegp 0.4 Gamma Globulins 1.0 Abnorm Protein Band 1 TEST NOT PERFORMED Abnorm Protein Band 2 TEST NOT PERFORMED Abnorm Protein Band 3 TEST NOT PERFORMED Urine Opiates Screen Urine Methadone Screen Ur Barbiturates Screen Ur Phencyclidine Scrn Ur Amphetamines Screen U Benzodiazepines Scrn U Oth Cocaine Metabols U Cannabinoids Screen COLE & SPEP Interp See note 10/06/16 10/07/16 10/07/16 21:35 02:13 05:30 WBC 5.4 D RBC 3.77 Hgb 11.4 L Hct 34.1 L MCV 90.5 MCH 30.2 MCHC 33.4 RDW 14.3 Plt Count 269 MPV 9.7 Gran % 78.2 H Lymph % (Auto) 19.0 L [place] % (Auto) 2.4 Eos % (Auto) 0.2 L Baso % (Auto) 0.2 Gran # 4.19 Lymph # 1.0 L [place] # 0.1 Eos # 0.0 Baso # 0.01 Sodium Potassium Chloride Carbon Dioxide Anion Gap BUN Creatinine Est GFR ( Amer) Est GFR (Non-Af Amer) POC Glucose (mg/dL) 54 L 166 H Random Glucose Hemoglobin A1c Calcium Total Bilirubin AST ALT Alkaline Phosphatase Total Protein Total Protein (PEP) Albumin Albumin (PEP) Globulin Albumin/Globulin Ratio Svyog-5-Vqzigsqor Bivpk-2-Xkdtmkack Bfpp-6-Gfxerhog Idaj-5-Bkndtzvx Gamma Globulins Abnorm Protein Band 1 Abnorm Protein Band 2 Abnorm Protein Band 3 Urine Opiates Screen Urine Methadone Screen Ur Barbiturates Screen Ur Phencyclidine Scrn Ur Amphetamines Screen U Benzodiazepines Scrn U Oth Cocaine Metabols U Cannabinoids Screen COLE & SPEP Interp 10/07/16 10/07/16 10/07/16 05:30 06:00 07:18 WBC RBC Hgb Hct MCV MCH MCHC RDW Plt Count MPV Gran % Lymph % (Auto) [place] % (Auto) Eos % (Auto) Baso % (Auto) Gran # Lymph # [place] # Eos # Baso # Sodium 137 Potassium 5.1 H Chloride 106 Carbon Dioxide 22 Anion Gap 14 BUN 28 H Creatinine 1.3 Est GFR ( Amer) > 60 Est GFR (Non-Af Amer) 56 POC Glucose (mg/dL) 178 H Random Glucose 166 H Hemoglobin A1c Calcium 9.2 Total Bilirubin 0.4 AST 55 ALT 54 Alkaline Phosphatase 106 Total Protein 7.6 Total Protein (PEP) Albumin 3.7 Albumin (PEP) Globulin 3.8 Albumin/Globulin Ratio 1.0 L Mvarn-2-Jlyoispbj Ngait-8-Ragfonrxy Wjgl-3-Oochkeuv Hpey-4-Dvlvklgr Gamma Globulins Abnorm Protein Band 1 Abnorm Protein Band 2 Abnorm Protein Band 3 Urine Opiates Screen Positive H Urine Methadone Screen Negative Ur Barbiturates Screen Negative Ur Phencyclidine Scrn Negative Ur Amphetamines Screen Negative U Benzodiazepines Scrn Negative U Oth Cocaine Metabols Negative U Cannabinoids Screen Negative COLE & SPEP Interp 10/07/16 11:08 WBC RBC Hgb Hct MCV MCH MCHC RDW Plt Count MPV Gran % Lymph % (Auto) [place] % (Auto) Eos % (Auto) Baso % (Auto) Gran # Lymph # [place] # Eos # Baso # Sodium Potassium Chloride Carbon Dioxide Anion Gap BUN Creatinine Est GFR ( Amer) Est GFR (Non-Af Amer) POC Glucose (mg/dL) 161 H Random Glucose Hemoglobin A1c Calcium Total Bilirubin AST ALT Alkaline Phosphatase Total Protein Total Protein (PEP) Albumin Albumin (PEP) Globulin Albumin/Globulin Ratio Sqpmk-4-Mmmsuzgup Wcoqo-2-Nbyvbqjbe Usqw-6-Owaahsbb Myvg-5-Wahfmilj Gamma Globulins Abnorm Protein Band 1 Abnorm Protein Band 2 Abnorm Protein Band 3 Urine Opiates Screen Urine Methadone Screen Ur Barbiturates Screen Ur Phencyclidine Scrn Ur Amphetamines Screen U Benzodiazepines Scrn U Oth Cocaine Metabols U Cannabinoids Screen COLE & SPEP Interp Assessment & Plan - Assessment and Plan (Free Text) Assessment: 61 year old male admitted with COPD exacerbation, osteoarthritis,KELTON< dehydration. Patient is alert, oriented, restless. Patient states he wants to leave. I spoke with him about an Advance Directive. He is not interested in this. He state that he's "not ready to ". I explained that this was planning for future needs and it would give him control over interventions that would be done to him. He is not interested in discussing at this time. States he think about it in future. Time spent in advance care planning discussion, 10 minutes
== END 2016-10-07 16:04 | disposition home or self-care (01) ==
LOC: ED 16:05 → ERH 18:16 → 2RNO 21:21
PROVIDERS: ADMIT Internal Medicine; ATTEND Internal Medicine
DX: J44.1 Chronic obstructive pulmonary disease with (acute) exacerbation (principal); B20 Human immunodeficiency virus [HIV] disease; R07.9 Chest pain, unspecified; N17.9 Acute kidney failure, unspecified; B19.20 Unspecified viral hepatitis C without hepatic coma; I12.9 Hypertensive chronic kidney disease with stage 1 through stage 4 chronic kidney disease, or unspecified chronic kidney disease; E11.22 Type 2 diabetes mellitus with diabetic chronic kidney disease; N18.9 Chronic kidney disease, unspecified; E86.0 Dehydration; M54.2 Cervicalgia; F17.200 Nicotine dependence, unspecified, uncomplicated; F11.10 Opioid abuse, uncomplicated; R00.0 Tachycardia, unspecified; D64.9 Anemia, unspecified; Z79.4 Long term (current) use of insulin
CPT/HCPCS: 36415; 71010; 72040; 78582; 80053; 81001; 82550; 82553; 82803; 82948; 83036; 83615; 84155; 84165; 84443; 84484; 85025; 85378; 85610; 85730; 86360; 87040; 87086; 87536; 93005; 93970; 94640; 94760; 96360; 96372; 97116; 97162; 99285; G0378; G0480; G8978; G8979; G8980; J1644; J1650; J2920; J7040

== ENCOUNTER 2016-10-18 16:03 | Emergency (ER) | payer MEDICARE, MEDICAID ==
[2016-10-18 22:48] LABS: ALB/GLOB RATIO 1.2 (1.1-1.8); ALBUMIN 4.3 g/dL (3.0-4.8); ALT/SGPT 44 U/L (7-56); AST/SGOT 45 U/L (15-59); B-TYPE NATRIURETIC PEPTIDE 152 pg/mL (0-450); BLOOD UREA NITROGEN 28 mg/dL (7-21); CALCIUM 9.7 mg/dL (8.4-10.5); GFR AFRICAN-AMERICAN > 60; GFR NON-AFRICAN AMERICAN 56; HEMOGLOBIN 11.5 gm/dL (14.0-18.0); MEAN CELL VOLUME 92.8 fL (80.0-105.0); MEAN CORPUSCULAR HEMOGLOBIN 30.7 pg (25.0-35.0); MEAN PLATELET VOLUME 10.4 fl (7.0-11.0); RBC 3.75 10^6/uL (3.5-6.1); RED CELL DISTRIBUTION WIDTH 14.5 % (11.5-14.5); TROPONIN I < 0.01 ng/mL; WHITE BLOOD COUNT 4.1 10^3/ul (4.5-11.0)
[2016-10-18 22:49] LABS: INR 1.01 (0.93-1.08); PROTHROMBIN TIME 10.9 Seconds (9.9-11.8)
--- NOTE | 2016-10-19 11:22 | RAD ---
HISTORY: Shortness of breath. Technique: Single view portable semi erect @ 17:25. COMPARISON: 10/05/2016. FINDINGS: LUNGS: No active pulmonary disease. PLEURA: No significant pleural effusion identified, no pneumothorax apparent. CARDIOVASCULAR: No radiographic findings to suggest acute or significant cardiovascular disease. OSSEOUS STRUCTURES: No significant abnormalities. VISUALIZED UPPER ABDOMEN: Normal. OTHER FINDINGS: None. IMPRESSION: No active disease. No significant interval change compared to the prior examination(s).
== END 2016-10-20 09:59 | disposition home or self-care (01) ==
LOC: ED 16:03
DX: J44.9 Chronic obstructive pulmonary disease, unspecified (principal); R06.00 Dyspnea, unspecified; Z21 Asymptomatic human immunodeficiency virus [HIV] infection status; Z99.81 Dependence on supplemental oxygen

== ENCOUNTER 2017-03-21 00:12 | Observation (INO) | payer MEDICARE, MEDICAID ==
[2017-03-21 00:19] VITALS: BMI 25.8
[2017-03-21] MEDS ORDERED: Albuterol-Ipratrop 3 mg / 0.5 (3 ml) UD IH STA (00:30)
[2017-03-21 01:16] LABS: EOS % 0.1 % (1.5-5.0); GRAN # 8.56 (1.4-6.5); GRAN % 81.1 % (50.0-68.0); HEMATOCRIT 33.4 % (42.0-52.0); LYMPH # 1.2 (1.2-3.4); MEAN CELL VOLUME 91.8 fl (80.0-105.0); MEAN CORPUSCULAR HEMOGLOBIN 29.9 pg (25.0-35.0); MEAN CORPUSCULAR HGB CONC 32.6 g/dl (31.0-37.0); MEAN PLATELET VOLUME 9.3 fl (7.0-11.0); MONO # 0.8 (0.1-0.6); MONO % 7.8 % (1.0-6.0); RED CELL DISTRIBUTION WIDTH 16.6 % (11.5-14.5); WHITE BLOOD COUNT 10.6 10^3/ul (4.5-11.0)
[2017-03-21 01:26] LABS: BLOOD UREA NITROGEN 25 mg/dL (7-21); CALCIUM 9.4 mg/dL (8.4-10.5); CARBON DIOXIDE 28 mmol/L (21-33); CHLORIDE 104 mmol/L (98-107); GFR AFRICAN-AMERICAN > 60; GLUCOSE,RANDOM 121 mg/dL (70-110); POTASSIUM 4.5 mmol/L (3.6-5.0); SODIUM 141 mmol/L (132-148)
[2017-03-21 01:35] LABS: INR 1.1 (0.93-1.08); PARTIAL THROMBOPLASTIN TIME 27.1 Seconds (25.1-36.5)
[2017-03-21 01:38] LABS: TROPONIN I < 0.01 ng/mL
--- NOTE | 2017-03-21 02:29 | ED PDOC ---
Arrival/HPI - General Chief Complaint: Shortness Of Breath Time Seen by Provider: 03/21/17 00:20 Historian: Patient - History of Present Illness Narrative History of Present Illness (Text): 03/21/17 00:30 62 year old male, whose past medical history includes HIV on HAART therapy, IV heroin abuse, diabetes, hepatitis C, COPD, and hypertension, presents to the Emergency department complaining of shortness of breath and wheezing that worsened today. Patient was recently discharged his afternoon for COPD exacerbation at [facility] [place] who said "they did not help". Patient uses oxygen nasal cannula with no relief. Patient reports still having shortness of breath, moderate cough, and does not feel better since last admission, but denies any fevers, chills, chest pain, abdominal pain, nausea, vomiting, diarrhea, back pain, neck pain, urinary/bowel changes, headache, dizziness, or any other complaint. PMD: None. Symptom Onset: Gradual Symptom Course: Unchanged Activities at Onset: Light Context: Home Past Medical History - Provider Review Nursing Documentation Reviewed: Yes - Infectious Disease Hx of Infectious Diseases: None - Tetanus Immunization Tetanus Immunization: Unknown - Cardiac Hx Hypertension: Yes - Pulmonary Hx Chronic Obstructive Pulmonary Disease (COPD): Yes (on O2 via [place] @ 2lpm) - Neurological Hx Neurological Disorder: No - HEENT Hx HEENT Disorder: No - Renal Hx Renal Disorder: No - Endocrine/Metabolic Hx Diabetes Mellitus Type 1: Yes Hx Diabetes Mellitus Type 2: Yes - Hematological/Oncological Hx Hepatitis C: Yes - Integumentary Hx Dermatological Disorder: No - Musculoskeletal/Rheumatological Hx Falls: No - Gastrointestinal Hx Pancreatitis: Yes - Genitourinary/Gynecological Hx Genitourinary Disorders: No - Psychiatric Hx Psychophysiologic Disorder: No Hx Substance Use: No (denies) - Surgical History Hx Orthopedic Surgery: Yes (RT KNEE) - Anesthesia Hx Anesthesia: Yes Hx Anesthesia Reactions: No Hx Malignant Hyperthermia: No - Suicidal Assessment Feels Threatened In Home Enviroment: No Family/Social History - Physician Review Nursing Documentation Reviewed: Yes Family/Social History: No Known Family HX Smoking Status: Former Smoker Hx Alcohol Use: No Hx Substance Use: No (denies) Substance used: heroine Allergies/Home Meds Allergies/Adverse Reactions: Allergies No Known Allergies Allergy (Verified 10/05/16 16:23) Home Medications: Home Meds Medication Instructions Recorded Confirmed Insulin Aspart, Recombinant 30 unit SQ BID 08/16/16 03/21/17 [Novolog] Valsartan [Diovan] 1 tab PO DAILY 08/16/16 03/21/17 Review of Systems - Physician Review All systems were reviewed & negative as marked: Yes - Review of Systems Constitutional: absent: Fevers, Other (Chills) Respiratory: SOB, Cough Cardiovascular: absent: Chest Pain Gastrointestinal: absent: Abdominal Pain, Diarrhea, Nausea, Vomiting Genitourinary Male: absent: Dysuria, Frequency, Hematuria Musculoskeletal: absent: Back Pain, Neck Pain Neurological: absent: Headache, Dizziness Physical Exam Vital Signs Reviewed: Yes Vital Signs Temp Pulse Resp BP Pulse Ox 03/21/17 03:30 76 18 102/67 100 03/21/17 02:30 79 18 92/57 L 100 03/21/17 00:36 88 16 99 03/21/17 00:35 20 03/21/17 00:15 98.4 F 110 H 20 107/75 94 L Temperature: Afebrile Blood Pressure: Normal Pulse: Tachycardic Respiratory Rate: Normal Appearance: Positive for: Well-Appearing, Non-Toxic, Comfortable Pain Distress: None Mental Status: Positive for: Alert and Oriented X 3 - Systems Exam Head: Present: Atraumatic, Normocephalic Pupils: Present: PERRL Extroacular Muscles: Present: EOMI Conjunctiva: Present: Normal Mouth: Present: Moist Mucous Membranes Neck: Present: Normal Range of Motion Respiratory/Chest: Present: Clear to Auscultation, Accessory Muscle Use (Mild), Wheezes, Rhonchi (Scattered Rhonchi ). No: Respiratory Distress Cardiovascular: Present: Regular Rate and Rhythm, Normal S1, S2. No: Murmurs Abdomen: Present: Normal Bowel Sounds. No: Tenderness, Distention, Peritoneal Signs Back: Present: Normal Inspection Upper Extremity: Present: Normal Inspection. No: Cyanosis, Edema Lower Extremity: Present: Normal Inspection, Edema (Traces of lower extremity) Neurological: Present: GCS=15, CN II-XII Intact, Speech Normal Skin: Present: Warm, Dry, Normal Color. No: Rashes Psychiatric: Present: Alert, Oriented x 3, Normal Insight, Normal Concentration Medical Decision Making ED Course and Treatment: 03/21/17 00:30 Impression: 62 year old male presents complaining of SOB associated with wheezing. Patient was recently discharged for COPD exacerbation at [facility] [place]. Plan: -- CXR -- Duoneb -- Solu-Medrol -- Reassess and disposition Progress Notes: EKG shows NSR at 99 BPM with FL depression leads on II, III, and aVF. Possible pericarditis. Interpreted by me. 03/21/17 02:56 pt continues to be mildly dyspneic, will admit for COPD obs, CXR neg, no signs of sepsis. similar presentation in the past, doubt PE. will admit to House doctor Reassessment Condition: Re-examined, Improved - Lab Interpretations Lab Results: 03/21/17 01:10 03/21/17 01:10 Lab Results 03/21/17 01:10: Sodium 141, Potassium 4.5, Chloride 104, Carbon Dioxide 28, Anion Gap 14, BUN 25 H, Creatinine 1.2, Est GFR ( Amer) > 60, Est GFR ( Non-Af Amer) > 60, Random Glucose 121 H, Calcium 9.4, Lactate Dehydrogenase 496 , Total Creatine Kinase 178, Troponin I < 0.01, NT-Pro-B Natriuret Pep 352 03/21/17 01:10: PT 12.0, INR 1.10 H, APTT 27.1 03/21/17 01:10: WBC 10.6 D, RBC 3.64, Hgb 10.9 L, Hct 33.4 L, MCV 91.8, MCH 29.9, MCHC 32.6, RDW 16.6 H, Plt Count 174, MPV 9.3, Gran % 81.1 H, Lymph % ( Auto) 11.0 L, [place] % (Auto) 7.8 H, Eos % (Auto) 0.1 L, Baso % (Auto) 0.0, Gran # 8.56 H, Lymph # 1.2, [place] # 0.8 H, Eos # 0.0, Baso # 0.00 - RAD Interpretation Radiology Orders: 03/21/17 00:44 X-RAY [CHEST PORTABLE] [RAD] Stat - EKG Interpretation Interpreted by ED Physician: Yes Type: 12 lead EKG - Medication Orders Current Medication Orders: Discontinued Medications Albuterol/Ipratropium (Duoneb 3 Mg/0.5 Mg (3 Ml) Ud) 3 ml IH STAT STA Stop: 03/21/17 00:31 Last Admin: 03/21/17 00:44 Dose: 3 ml Sodium Chloride (Sodium Chloride 0.9%) 1,000 mls @ 999 mls/hr IV .Q1H1M STA Stop: 03/21/17 04:03 Last Admin: 03/21/17 03:35 Dose: 999 mls/hr eMAR Start Stop Document 03/21/17 03:35 YP (Rec: 03/21/17 03:35 YP [id number]) Intravenous Solution Start Date 03/21/17 Start Time 03:35 End Date 03/21/17 End time 04:35 Total Infusion Time 60 Methylprednisolone (Solu-Medrol) 125 mg IVP STAT STA Stop: 03/21/17 00:45 Last Admin: 03/21/17 01:26 Dose: 125 mg IVP Administration Document 03/21/17 01:26 YP (Rec: 03/21/17 01:26 YP [id number]) Charges for Administration # of IVP Administrations 1 - Scribe Statement The provider has reviewed the documentation as recorded by the Temo Burgos Provider Scribe Attestation: All medical record entries made by the Scribjuliana were at my direction and personally dictated by me. I have reviewed the chart and agree that the record accurately reflects my personal performance of the history, physical exam, medical decision making, and the department course for this patient. I have also personally directed, reviewed, and agree with the discharge instructions and disposition. Disposition/Present on Arrival - Present on Arrival Any Indicators Present on Arrival: Yes History of DVT/PE: Yes History of Uncontrolled Diabetes: Yes Urinary Catheter: No History of Decub. Ulcer: No History Surgical Site Infection Following: None - Disposition Have Diagnosis and Disposition been Completed?: Yes Diagnosis: Chronic obstructive lung disease Disposition: HOSPITALIZED Disposition Time: 04:08 Patient Plan: Observation Condition: IMPROVED Referrals: PCP,NO [Primary Care Provider] - Follow up with primary Forms: [employer] (Togolese)
[2017-03-21] MEDS ORDERED: Sodium Chloride 0.9% 1,000 ML IV STA (03:03)
[2017-03-21] MEDS ORDERED: Albuterol-Ipratrop 3 mg / 0.5 (3 ml) UD IH PRN (04:37)
--- NOTE | 2017-03-21 05:42 | CP.PCM.HP ---
<Madison Shen - Last Filed: 03/21/17 08:23> History of Present Illness - History of Present Illness History of Present Illness: Calvinregi Ac DO PGY1 - Internal Medicine H&P CC: Short of breath HPI: 61 yo M with a PMHx of HIV on HAART therapy, nasal and IV heroin abuse, DM , Hepatitis C, COPD with O2 dependance, HTN, who presents to the ED with complaints of shortness of breath. Pt is a frequent visitor to [facility] [place]. He reports that prior to his presentation, he left [facility] where he was admitted for 2-3 days and being treated with steroids and antibiotics for shortness of breath. He left there AMA because he could not sleep, then went and slept at home, and still felt short of breath, so he came here. He reports cough productive of yellowish sputum. He denies any chest pain, hemoptysis, hematmesis, fever, chills, nausea, vomiting, diarrhea, constipation, headache, back pain. 12 point ROS is negative except as in HPI PMHx: HIV on HAART therapy, nasal and IV heroin abuse, DM, Hepatitis C, COPD with O2 dependance, HTN Home medications: as per MAR Past Surgical Hx: denies Allergies: NKDA Social Hx: reports that he smokes 1 pack of cigarettes/day for 51 years stopped a few years ago, denies alcohol use, reports past history of IV/nasal heroin abuse, reports last use of heroin was about 6 weeks agp. Family Hx: Diabetes Mellitus Meds: Please refer to MAR Present on Admission - Present on Admission Any Indicators Present on Admission: No Past Patient History - Infectious Disease Hx of Infectious Diseases: None - Tetanus Immunizations Tetanus Immunization: Unknown - Past Medical History & Family History Past Medical History?: Yes - Past Social History Smoking Status: Former Smoker - CARDIAC Hx Hypertension: Yes - PULMONARY Hx Chronic Obstructive Pulmonary Disease (COPD): Yes (on O2 via NC @ 2lpm) - NEUROLOGICAL Hx Neurological Disorder: No - HEENT Hx HEENT Problems: No - RENAL Hx Chronic Kidney Disease: No - ENDOCRINE/METABOLIC Hx Diabetes Mellitus Type 1: Yes Hx Diabetes Mellitus Type 2: Yes - HEMATOLOGICAL/ONCOLOGICAL Hx Hepatitis C: Yes - INTEGUMENTARY Hx Dermatological Problems: No - MUSCULOSKELETAL/RHEUMATOLOGICAL Hx Falls: No - GASTROINTESTINAL Hx Pancreatitis: Yes - GENITOURINARY/GYNECOLOGICAL Hx Genitourinary Disorders: No - PSYCHIATRIC Hx Psychophysiologic Disorder: No Hx Substance Use: No (denies) - SURGICAL HISTORY Hx Orthopedic Surgery: Yes (RT KNEE) - ANESTHESIA Hx Anesthesia: Yes Hx Anesthesia Reactions: No Hx Malignant Hyperthermia: No Meds Allergies/Adverse Reactions: Allergies Allergy/AdvReac Type Severity Reaction Status Date / Time No Known Allergies Allergy Verified 10/05/16 16:23 Physical Exam - Constitutional Appears: Non-toxic, No Acute Distress - Head Exam Head Exam: ATRAUMATIC, NORMOCEPHALIC - Eye Exam Eye Exam: EOMI, Normal appearance. absent: Scleral icterus - ENT Exam ENT Exam: Mucous Membranes Moist - Neck Exam Neck exam: Positive for: Normal Inspection - Respiratory Exam Respiratory Exam: Prolonged Expiratory Phase, Rhonchi (diffuse), Wheezes ( diffuse), NORMAL BREATHING PATTERN. absent: Accessory Muscle Use, Chest Wall Tenderness, Decreased Breath Sounds, Respiratory Distress - Cardiovascular Exam Cardiovascular Exam: RRR, +S1, +S2 - GI/Abdominal Exam GI & Abdominal Exam: Normal Bowel Sounds, Soft. absent: Tenderness - Extremities Exam Extremities exam: Negative for: calf tenderness, pedal edema - Back Exam Back exam: absent: CVA tenderness (L), CVA tenderness (R) - Neurological Exam Neurological exam: Alert, CN II-XII Intact, Oriented x3 - Psychiatric Exam Psychiatric exam: Normal Affect, Normal Mood - Skin Skin Exam: Dry, Intact Results - Vital Signs Recent Vital Signs: Last Vital Signs Temp 98.4 F 03/21/17 00:15 Pulse 76 03/21/17 04:11 Resp 18 03/21/17 04:11 BP 116/71 03/21/17 04:11 Pulse Ox 100 03/21/17 04:11 - Labs Result Diagrams: 03/21/17 01:10 03/21/17 01:10 Assessment & Plan - Assessment and Plan (Free Text) Assessment: 61yo M with a PMHx of HIV on HAART therapy, nasal and IV heroin abuse, DM, Hepatitis C, COPD with O2 dependance, HTN, who presents to the ED with complaints of shortness of breath. 1. COPD Exacerbation; acute on chronic -Patient was being treated for COPD exacerbation at [facility] but left AMA -CXR shows stigmata of COPD, without any focal consolidations, pending official read -Start Duonebs Q4sch and Q2prn -Start solumedrol 40mg IV Q12 -Start levaquin IV for 7 day course -keep O2 sat above 88% 2. h/o HIV; Chronic -Last viral load measured 10/06/16; low but detected -Last CD4 count measured 10/07/11; -Continue home meds 3. h/o Diabetes Mellitus -Hold home meds -SSI med -Accucheck ACHS -Consistent carbohydrate diet 4. h/o HTN -BP currently stable -Continue home meds GI/DVT Ppx - Protonix and Heparin Patient seen, discussed, and reviewed with attending <Shannon Bradley - Last Filed: 03/21/17 23:43> Results - Vital Signs Recent Vital Signs: Last Vital Signs Temp 98 F 03/21/17 17:00 Pulse 82 03/21/17 17:00 Resp 20 03/21/17 17:00 BP 113/69 03/21/17 17:00 Pulse Ox 99 03/21/17 17:00 - Labs Result Diagrams: 03/21/17 01:10 03/21/17 01:10 Labs: Laboratory Results - last 24 hr 03/21/17 03/21/17 03/21/17 07:52 09:46 11:45 POC Glucose (mg/dL) 382 H 226 H Urine Opiates Screen Positive H Urine Methadone Screen Negative Ur Barbiturates Screen Negative Ur Phencyclidine Scrn Negative Ur Amphetamines Screen Negative U Benzodiazepines Scrn Negative U Oth Cocaine Metabols Negative U Cannabinoids Screen Negative 03/21/17 16:42 POC Glucose (mg/dL) 247 H Urine Opiates Screen Urine Methadone Screen Ur Barbiturates Screen Ur Phencyclidine Scrn Ur Amphetamines Screen U Benzodiazepines Scrn U Oth Cocaine Metabols U Cannabinoids Screen Attending/Attestation - Attestation I have personally seen and examined this patient.: Yes I have fully participated in the care of the patient.: Yes I have reviewed all pertinent clinical information: Yes Notes (Text): 03/21/17 23:42 Agree with history , physical examination, assessment and plan.
[2017-03-21] MEDS: Pantoprazole 40 mg EC Tab PO SCH (05:46)
[2017-03-21] MEDS: Albuterol-Ipratrop 3 mg / 0.5 (3 ml) UD IH SCH ×5 (08:04→23:37)
[2017-03-21] MEDS: Insulin Reg-MEDIUM-Coverage SC SCH ×4 (08:32→22:08)
[2017-03-21] MEDS ORDERED: levoFLOXacin 500 mg in D5W 500 MG/100 ML BAG IVPB SCH (10:00)
--- NOTE | 2017-03-21 10:16 | RAD ---
HISTORY: sob COMPARISON: Chest x-ray performed 10/18/16 TECHNIQUE: Chest, one view. FINDINGS: LUNGS: No focal consolidation. Please note that chest x-ray has limited sensitivity for the detection of pulmonary masses. PLEURA: No significant pleural effusion identified. No definite pneumothorax . CARDIOVASCULAR: The cardiomediastinal silhouette appears within normal limits of size. OSSEOUS STRUCTURES: No acute osseous abnormality identified. VISUALIZED UPPER ABDOMEN: Unremarkable. OTHER FINDINGS: None. IMPRESSION: No focal consolidation, significant pleural effusion, or definite pneumothorax identified.
[2017-03-21] MEDS: Atovaquone 750 mg/5 ml Susp UD PO SCH ×2 (11:09→18:29)
[2017-03-21] MEDS: MethylPREDNISolone 40 mg Vial IVP SCH ×2 (11:09→21:52)
[2017-03-21 17:01] VITALS: RESP 20
[2017-03-22] MEDS: Albuterol-Ipratrop 3 mg / 0.5 (3 ml) UD IH SCH ×3 (04:29→11:11)
[2017-03-22] MEDS: Pantoprazole 40 mg EC Tab PO SCH (05:31)
[2017-03-22 06:48] LABS: ALB/GLOB RATIO 1.1 (1.1-1.8); ALKALINE PHOSPHATASE 55 U/L (38-126); ALT/SGPT 23 U/L (7-56); AST/SGOT 19 U/L (17-59); BILIRUBIN,TOTAL 0.6 mg/dL (0.2-1.3); BLOOD UREA NITROGEN 30 mg/dL (7-21); CALCIUM 9.7 mg/dL (8.4-10.5); CARBON DIOXIDE 28 mmol/L (21-33); CHLORIDE 103 mmol/L (98-107); GFR AFRICAN-AMERICAN > 60; GLUCOSE,RANDOM 284 mg/dL (70-110); PHOSPHOROUS 3.6 mg/dL (2.5-4.5); POTASSIUM 4.2 mmol/L (3.6-5.0); SODIUM 142 mmol/L (132-148); TOTAL PROTEIN 6.9 g/dL (5.8-8.3)
[2017-03-22 07:11] LABS: GRAN # 8.07 (1.4-6.5); GRAN % 89.9 % (50.0-68.0); HEMATOCRIT 32.4 % (42.0-52.0); LYMPH # 0.6 (1.2-3.4); LYMPH % 6.8 % (22.0-35.0); MEAN CELL VOLUME 90.5 fl (80.0-105.0); MEAN CORPUSCULAR HEMOGLOBIN 29.3 pg (25.0-35.0); MEAN CORPUSCULAR HGB CONC 32.4 g/dl (31.0-37.0); MONO # 0.3 (0.1-0.6); MONO % 3.3 % (1.0-6.0); RED CELL DISTRIBUTION WIDTH 16.5 % (11.5-14.5)
[2017-03-22] MEDS: Atovaquone 750 mg/5 ml Susp UD PO SCH (09:46)
[2017-03-22] MEDS: MethylPREDNISolone 40 mg Vial IVP SCH (09:47)
[2017-03-22] MEDS: Insulin Reg-MEDIUM-Coverage SC SCH ×2 (09:47→13:00)
[2017-03-22 09:49] VITALS: PULSE 90
[2017-03-22] MEDS ORDERED: Sodium Chloride 0.9% 1,000 ML IV SCH (10:15)
[2017-03-22 10:46] VITALS: BP 86/58; TEMP 98.3; O2SAT 98
--- NOTE | 2017-03-22 13:07 | CP.PCM.DIS ---
<Dez Tan - Last Filed: 03/22/17 14:02> Provider - Provider Date of Admission: 03/21/17 04:08 Attending physician: Dulce Rodriguez MD Primary care physician: NO PRIMARY CARE PROVIDER Time Spent in preparation of Discharge (in minutes): 35 Hospital Course - Lab Results Lab Results: Micro Results 03/21/17 04:30 Blood Blood Culture - Preliminary NO GROWTH AFTER 24 HOURS Most Recent Lab Values WBC 9.0 10^3/ul (4.5-11.0) 03/22/17 05:00 RBC 3.58 10^6/uL (3.5-6.1) 03/22/17 05:00 Hgb 10.5 g/dL (14.0-18.0) L 03/22/17 05:00 Hct 32.4 % (42.0-52.0) L 03/22/17 05:00 MCV 90.5 fl (80.0-105.0) 03/22/17 05:00 MCH 29.3 pg (25.0-35.0) 03/22/17 05:00 MCHC 32.4 g/dl (31.0-37.0) 03/22/17 05:00 RDW 16.5 % (11.5-14.5) H 03/22/17 05:00 Plt Count 176 10^3/uL (120.0-450.0) 03/22/17 05:00 MPV 10.0 fl (7.0-11.0) 03/22/17 05:00 Gran % 89.9 % (50.0-68.0) H 03/22/17 05:00 Lymph % (Auto) 6.8 % (22.0-35.0) L 03/22/17 05:00 [place] % (Auto) 3.3 % (1.0-6.0) 03/22/17 05:00 Eos % (Auto) 0.0 % (1.5-5.0) L 03/22/17 05:00 Baso % (Auto) 0.0 % (0.0-3.0) 03/22/17 05:00 Gran # 8.07 (1.4-6.5) H 03/22/17 05:00 Lymph # 0.6 (1.2-3.4) L 03/22/17 05:00 [place] # 0.3 (0.1-0.6) 03/22/17 05:00 Eos # 0.0 (0.0-0.7) 03/22/17 05:00 Baso # 0.00 K/mm3 (0.0-2.0) 03/22/17 05:00 PT 12.0 SECONDS (9.4-12.5) 03/21/17 01:10 INR 1.10 (0.93-1.08) H 03/21/17 01:10 APTT 27.1 Seconds (25.1-36.5) 03/21/17 01:10 Sodium 142 mmol/L (132-148) 03/22/17 05:00 Potassium 4.2 mmol/L (3.6-5.0) 03/22/17 05:00 Chloride 103 mmol/L (98-107) 03/22/17 05:00 Carbon Dioxide 28 mmol/L (21-33) 03/22/17 05:00 Anion Gap 14 (10-20) 03/22/17 05:00 BUN 30 mg/dL (7-21) H 03/22/17 05:00 Creatinine 1.4 mg/dl (0.8-1.5) 03/22/17 05:00 Est GFR ( Amer) > 60 03/22/17 05:00 Est GFR (Non-Af Amer) 51 03/22/17 05:00 POC Glucose (mg/dL) 317 mg/dL (65-110) H 03/22/17 11:35 Random Glucose 284 mg/dL (70-110) H 03/22/17 05:00 Calcium 9.7 mg/dL (8.4-10.5) 03/22/17 05:00 Phosphorus 3.6 mg/dL (2.5-4.5) 03/22/17 05:00 Magnesium 2.0 mg/dL (1.7-2.2) 03/22/17 05:00 Total Bilirubin 0.6 mg/dL (0.2-1.3) 03/22/17 05:00 AST 19 U/L (17-59) 03/22/17 05:00 ALT 23 U/L (7-56) 03/22/17 05:00 Alkaline Phosphatase 55 U/L (38-126) 03/22/17 05:00 Lactate Dehydrogenase 496 U/L (333-699) 03/21/17 01:10 Total Creatine Kinase 178 U/L (35-230) 03/21/17 01:10 Troponin I < 0.01 ng/mL 03/21/17 01:10 NT-Pro-B Natriuret Pep 352 pg/mL (0-450) 03/21/17 01:10 Total Protein 6.9 g/dL (5.8-8.3) 03/22/17 05:00 Albumin 3.7 g/dL (3.0-4.8) 03/22/17 05:00 Globulin 3.2 gm/dL 03/22/17 05:00 Albumin/Globulin Ratio 1.1 (1.1-1.8) 03/22/17 05:00 Urine Opiates Screen Positive (NEGATIVE) H 03/21/17 09:46 Urine Methadone Screen Negative (NEGATIVE) 03/21/17 09:46 Ur Barbiturates Screen Negative (NEGATIVE) 03/21/17 09:46 Ur Phencyclidine Scrn Negative (NEGATIVE) 03/21/17 09:46 Ur Amphetamines Screen Negative (NEGATIVE) 03/21/17 09:46 U Benzodiazepines Scrn Negative (NEGATIVE) 03/21/17 09:46 U Oth Cocaine Metabols Negative (NEGATIVE) 03/21/17 09:46 U Cannabinoids Screen Negative (NEGATIVE) 03/21/17 09:46 - Hospital Course Hospital Course: 62 year old black male with a past medical history notable for multiple COPD exacerbations, HIV, HCV, and a history of polysubstance abuse who [place] [facility] dyspnea, chest tightness and sputum production. Initial labs and imaging were negative for ACS, CHF exacerbation, and pneumonia. Chest X-ray showed no focal consolidation. He was treated with IV steroids, duonebs, Levoquin, supplemental oxygen and by resuming her home medicationsto treat his chronic medical problems. During the course of his stay, he remained afebrile without leukocytosis. He was discharged home with a Medrol dose pack- that he refused to take and he was educated on the importance of maintaining follow up with his specialist and PMD. - Date & Time of H&P Date of H&P: 03/22/17 Time of H&P: 14:21 Discharge Exam - Head Exam Head Exam: ATRAUMATIC, NORMOCEPHALIC - Eye Exam Eye Exam: EOMI, Normal appearance, PERRL - ENT Exam ENT Exam: Mucous Membranes Moist, Normal Oropharynx - Respiratory Exam Respiratory Exam: Clear to PA & Lateral, NORMAL BREATHING PATTERN - Cardiovascular Exam Cardiovascular Exam: RRR, +S1, +S2 - GI/Abdominal Exam GI & Abdominal Exam: Normal Bowel Sounds. absent: Guarding - Extremities Exam Extremities exam: normal capillary refill, normal inspection - Back Exam Back exam: NORMAL INSPECTION. absent: CVA tenderness (L), CVA tenderness (R) - Neurological Exam Neurological exam: Alert, CN II-XII Intact, Oriented x3 - Psychiatric Exam Psychiatric exam: Normal Affect, Normal Mood - Skin Skin Exam: Dry, Intact, Normal Color, Warm Discharge Plan - Discharge Medications Prescriptions: Methylprednisolone [Medrol Dose Pack (21 tabs)] 4 mg PO DAILY #21 mg - Follow Up Plan Condition: IMPROVED Disposition: HOME/ ROUTINE Instructions: COPD (Chronic Obstructive Pulmonary Disease) (DC), COPD (Chronic Obstructive Pulmonary Disease) (GEN) Additional Instructions: 1) Patient to take any medications as prescribed 2) Patient to follow up with primary medical doctor within the next 7 days. 3) Patient to return to the nearest ED for any worsening of symptoms. Referrals: PCP,HARLEEN [Primary Care Provider] - <Dulce Rodriguez - Last Filed: 03/22/17 16:01> Provider - Provider Date of Admission: 03/21/17 04:08 Attending physician: Dulce Rodriguez MD Primary care physician: HARLEEN PRIMARY CARE PROVIDER Hospital Course - Lab Results Lab Results: Micro Results 03/21/17 04:30 Blood Blood Culture - Preliminary NO GROWTH AFTER 24 HOURS Most Recent Lab Values WBC 9.0 10^3/ul (4.5-11.0) 03/22/17 05:00 RBC 3.58 10^6/uL (3.5-6.1) 03/22/17 05:00 Hgb 10.5 g/dL (14.0-18.0) L 03/22/17 05:00 Hct 32.4 % (42.0-52.0) L 03/22/17 05:00 MCV 90.5 fl (80.0-105.0) 03/22/17 05:00 MCH 29.3 pg (25.0-35.0) 03/22/17 05:00 MCHC 32.4 g/dl (31.0-37.0) 03/22/17 05:00 RDW 16.5 % (11.5-14.5) H 03/22/17 05:00 Plt Count 176 10^3/uL (120.0-450.0) 03/22/17 05:00 MPV 10.0 fl (7.0-11.0) 03/22/17 05:00 Gran % 89.9 % (50.0-68.0) H 03/22/17 05:00 Lymph % (Auto) 6.8 % (22.0-35.0) L 03/22/17 05:00 [place] % (Auto) 3.3 % (1.0-6.0) 03/22/17 05:00 Eos % (Auto) 0.0 % (1.5-5.0) L 03/22/17 05:00 Baso % (Auto) 0.0 % (0.0-3.0) 03/22/17 05:00 Gran # 8.07 (1.4-6.5) H 03/22/17 05:00 Lymph # 0.6 (1.2-3.4) L 03/22/17 05:00 [place] # 0.3 (0.1-0.6) 03/22/17 05:00 Eos # 0.0 (0.0-0.7) 03/22/17 05:00 Baso # 0.00 K/mm3 (0.0-2.0) 03/22/17 05:00 PT 12.0 SECONDS (9.4-12.5) 03/21/17 01:10 INR 1.10 (0.93-1.08) H 03/21/17 01:10 APTT 27.1 Seconds (25.1-36.5) 03/21/17 01:10 Sodium 142 mmol/L (132-148) 03/22/17 05:00 Potassium 4.2 mmol/L (3.6-5.0) 03/22/17 05:00 Chloride 103 mmol/L (98-107) 03/22/17 05:00 Carbon Dioxide 28 mmol/L (21-33) 03/22/17 05:00 Anion Gap 14 (10-20) 03/22/17 05:00 BUN 30 mg/dL (7-21) H 03/22/17 05:00 Creatinine 1.4 mg/dl (0.8-1.5) 03/22/17 05:00 Est GFR ( Amer) > 60 03/22/17 05:00 Est GFR (Non-Af Amer) 51 03/22/17 05:00 POC Glucose (mg/dL) 317 mg/dL (65-110) H 03/22/17 11:35 Random Glucose 284 mg/dL (70-110) H 03/22/17 05:00 Calcium 9.7 mg/dL (8.4-10.5) 03/22/17 05:00 Phosphorus 3.6 mg/dL (2.5-4.5) 03/22/17 05:00 Magnesium 2.0 mg/dL (1.7-2.2) 03/22/17 05:00 Total Bilirubin 0.6 mg/dL (0.2-1.3) 03/22/17 05:00 AST 19 U/L (17-59) 03/22/17 05:00 ALT 23 U/L (7-56) 03/22/17 05:00 Alkaline Phosphatase 55 U/L (38-126) 03/22/17 05:00 Lactate Dehydrogenase 496 U/L (333-699) 03/21/17 01:10 Total Creatine Kinase 178 U/L (35-230) 03/21/17 01:10 Troponin I < 0.01 ng/mL 03/21/17 01:10 NT-Pro-B Natriuret Pep 352 pg/mL (0-450) 03/21/17 01:10 Total Protein 6.9 g/dL (5.8-8.3) 03/22/17 05:00 Albumin 3.7 g/dL (3.0-4.8) 03/22/17 05:00 Globulin 3.2 gm/dL 03/22/17 05:00 Albumin/Globulin Ratio 1.1 (1.1-1.8) 03/22/17 05:00 Urine Opiates Screen Positive (NEGATIVE) H 03/21/17 09:46 Urine Methadone Screen Negative (NEGATIVE) 03/21/17 09:46 Ur Barbiturates Screen Negative (NEGATIVE) 03/21/17 09:46 Ur Phencyclidine Scrn Negative (NEGATIVE) 03/21/17 09:46 Ur Amphetamines Screen Negative (NEGATIVE) 03/21/17 09:46 U Benzodiazepines Scrn Negative (NEGATIVE) 03/21/17 09:46 U Oth Cocaine Metabols Negative (NEGATIVE) 03/21/17 09:46 U Cannabinoids Screen Negative (NEGATIVE) 03/21/17 09:46 Attending/Attestation - Attestation I have personally seen and examined this patient.: Yes I have fully participated in the care of the patient.: Yes I have reviewed all pertinent clinical information, including history, physical exam and plan: Yes Notes (Text): 03/22/17 15:59 attending note; Patient seen and examined with resident. patient is a 62 year old male with a past medical history of HIV, COPD, polysubstance abuse,noncompliance with follow-up is admitted for COPD exacerbation. Currently patient is clinically stable. We will be discharged home with Medrol Dosepak, levofloxacin. Patient is strongly advised to follow-up with PMD and pulmonary of choice. prognosis is poor secondary to noncompliance with follow-up and continuous drug abuse. Diagnosis; COPD Drug abuse HIV
--- NOTE | 2017-03-22 16:12 | CARD ---
APPROVED REPORT EKG Measurement Heart [id number] <Conclusion> Normal sinus rhythm Normal ECG
== END 2017-03-22 16:06 | disposition home or self-care (01) ==
LOC: ED 00:12 → ERH 04:08 → 3RSO 04:42
PROVIDERS: ADMIT Internal Medicine; ATTEND Internal Medicine
DX: J44.1 Chronic obstructive pulmonary disease with (acute) exacerbation (principal); Z21 Asymptomatic human immunodeficiency virus [HIV] infection status; E10.9 Type 1 diabetes mellitus without complications; I10 Essential (primary) hypertension; Z79.4 Long term (current) use of insulin; Z79.899 Other long term (current) drug therapy; Z91.19 Patient's noncompliance with other medical treatment and regimen; F17.210 Nicotine dependence, cigarettes, uncomplicated; F11.11 Opioid abuse, in remission
CPT/HCPCS: 36415; 71010; 80048; 80053; 82550; 82948; 83615; 83735; 83880; 84100; 84484; 85025; 85610; 85730; 87040; 93005; 94640; 94760; 96361; 96374; 99285; G0378; G0480; J2920; J2930; J7040

== ENCOUNTER 2017-06-09 19:41 | Inpatient (IN) | payer MEDICARE, MEDICAID ==
[2017-06-09] MEDS ORDERED: Albuterol-Ipratrop 3 mg / 0.5 (3 ml) UD IH STA (20:00)
[2017-06-09 20:53] LABS: HEMOGLOBIN 11.2 g/dL (14.0-18.0); MEAN CELL VOLUME 92.3 fl (80.0-105.0); MEAN CORPUSCULAR HEMOGLOBIN 29.6 pg (25.0-35.0); MEAN PLATELET VOLUME 9.7 fl (7.0-11.0); RBC 3.79 10^6/uL (3.5-6.1); RED CELL DISTRIBUTION WIDTH 14.6 % (11.5-14.5); WHITE BLOOD COUNT 10.1 10^3/ul (4.5-11.0)
[2017-06-09 21:00] LABS: INR 0.99 (0.93-1.08); PARTIAL THROMBOPLASTIN TIME 26.7 Seconds (25.1-36.5); PROTHROMBIN TIME 11.3 SECONDS (9.4-12.5)
[2017-06-09 21:06] LABS: ALB/GLOB RATIO 1.2 (1.1-1.8); ALBUMIN 3.6 g/dL (3.0-4.8); ALT/SGPT 48 U/L (7-56); AST/SGOT 18 U/L (17-59); BLOOD UREA NITROGEN 27 mg/dL (7-21); CALCIUM 9.6 mg/dL (8.4-10.5); GFR AFRICAN-AMERICAN > 60; GFR NON-AFRICAN AMERICAN > 60
[2017-06-09 21:17] LABS: B-TYPE NATRIURETIC PEPTIDE 91.1 pg/mL (0-450); TROPONIN I 0.01 ng/mL
--- NOTE | 2017-06-09 21:40 | ED PDOC ---
Arrival/HPI - General Chief Complaint: Shortness Of Breath Time Seen by Provider: 06/09/17 19:51 Historian: Patient - History of Present Illness Narrative History of Present Illness (Text): 06/09/17 21:36 A 62 year old male, whose past medical history includes diabetes, COPD, and HIV , presents to the emergency department complaining of shortness of breath. Patient states he feels his emphysema is flaring up. He reports recently being treated at [facility] [place] for same complaints. Patient notes occasional cough but denies any fever, chills, nausea, vomiting, diarrhea, abdominal pain, chest pain or any other complaints. PMD: Dr. Ravi Lan Past Medical History - Provider Review Nursing Documentation Reviewed: Yes - Infectious Disease Hx of Infectious Diseases: None - Tetanus Immunization Tetanus Immunization: Unknown - Cardiac Hx Cardiac Disorders: Yes Hx Hypertension: Yes - Pulmonary Hx Respiratory Disorders: Yes Hx Asthma: Yes Hx Bronchitis: Yes Hx Chronic Obstructive Pulmonary Disease (COPD): Yes (on O2 via NC @ 2lpm) Hx Emphysema: Yes Hx Pneumonia: Yes Hx Sleep Apnea: Yes - Neurological Hx Neurological Disorder: No - HEENT Hx HEENT Disorder: No - Renal Hx Renal Disorder: No - Endocrine/Metabolic Hx Endocrine Disorders: Yes Hx Diabetes Mellitus Type 2: Yes - Hematological/Oncological Hx Blood Disorders: Yes - Integumentary Hx Dermatological Disorder: No - Musculoskeletal/Rheumatological Hx Arthritis: Yes - Gastrointestinal Hx Gastrointestinal Disorders: Yes Hx Pancreatitis: Yes - Genitourinary/Gynecological Hx Genitourinary Disorders: No - Psychiatric Hx Psychophysiologic Disorder: Yes Hx Anxiety: Yes Hx Substance Use: No (denies) - Surgical History Hx Orthopedic Surgery: Yes (RT KNEE) Other/Comment: comestic surgery to face post getting kicked in face by horse - Anesthesia Hx Anesthesia: Yes Hx Anesthesia Reactions: No Hx Malignant Hyperthermia: No - Suicidal Assessment Feels Threatened In Home Enviroment: No Family/Social History - Physician Review Nursing Documentation Reviewed: Yes Family/Social History: No Known Family HX Smoking Status: Former Smoker Hx Alcohol Use: No Hx Substance Use: No (denies) Substance used: heroine Allergies/Home Meds Allergies/Adverse Reactions: Allergies No Known Allergies Allergy (Verified 10/05/16 16:23) Home Medications: Home Meds Medication Instructions Recorded Confirmed Insulin Aspart, Recombinant 30 unit SQ BID 08/16/16 03/21/17 [Novolog] Valsartan [Diovan] 1 tab PO DAILY 08/16/16 03/21/17 Review of Systems - Physician Review All systems were reviewed & negative as marked: Yes - Review of Systems Constitutional: absent: Fevers, Night Sweats Respiratory: SOB, Cough Cardiovascular: absent: Chest Pain Gastrointestinal: absent: Abdominal Pain, Diarrhea, Nausea, Vomiting Physical Exam Vital Signs Reviewed: Yes Vital Signs Temp Pulse Resp BP Pulse Ox 06/09/17 23:43 80 16 97 06/09/17 21:53 89 16 132/65 99 06/09/17 20:44 98.5 F 108 H 16 135/107 H 96 06/09/17 20:31 18 95 Temperature: Afebrile Blood Pressure: Hypertensive Pulse: Tachycardic Respiratory Rate: Normal Appearance: Positive for: Well-Appearing, Non-Toxic, Comfortable Pain Distress: None Mental Status: Positive for: Alert and Oriented X 3 - Systems Exam Head: Present: Atraumatic, Normocephalic Pupils: Present: PERRL Extroacular Muscles: Present: EOMI Conjunctiva: Present: Normal Mouth: Present: Moist Mucous Membranes Neck: Present: Normal Range of Motion Respiratory/Chest: Present: Decreased Breath Sounds (bilaterally), Rhonchi. No : Respiratory Distress, Accessory Muscle Use Cardiovascular: Present: Normal S1, S2, Tachycardic. No: Murmurs Abdomen: Present: Normal Bowel Sounds. No: Tenderness, Distention, Peritoneal Signs Upper Extremity: Present: Normal Inspection. No: Cyanosis, Edema Lower Extremity: Present: Normal Inspection. No: Edema Neurological: Present: GCS=15, CN II-XII Intact, Speech Normal, Motor Func Grossly Intact, Normal Sensory Function, Normal Cerebellar Funct Skin: Present: Warm, Dry, Normal Color. No: Rashes Medical Decision Making ED Course and Treatment: 06/09/17 21:36 Impression: A 62 year old male with shortness of breath and mild cough Plan: -- Chest xray -- EKG -- Labs -- Duoneb and Solumedrol -- Reassess and disposition Progress Notes: EKG shows sinus tachycardia at 107 BPM with no acute changes. Interpreted by me. 06/10/17 00:49 Chest X-Ray shows no acute process. 06/10/2017 00:49 Case discussed with medical staff director and house doctor, Dr. Aparicio, who accepts patient into service. - Lab Interpretations Lab Results: 06/09/17 20:37 06/09/17 20:37 Lab Results 06/09/17 20:37: WBC 10.1, RBC 3.79, Hgb 11.2 L, Hct 35.0 L, MCV 92.3, MCH 29.6, MCHC 32.0, RDW 14.6 H, Plt Count 279, MPV 9.7 06/09/17 20:37: Sodium 143, Potassium 4.6, Chloride 105, Carbon Dioxide 30, Anion Gap 13, BUN 27 H, Creatinine 1.0, Est GFR ( Amer) > 60, Est GFR ( Non-Af Amer) > 60, Random Glucose 186 H, Calcium 9.6, Total Bilirubin 0.2, AST 18, ALT 48, Alkaline Phosphatase 70, Lactate Dehydrogenase 815 H, Total Creatine Kinase 35, Troponin I 0.01, NT-Pro-B Natriuret Pep 91.1, Total Protein 6.5, Albumin 3.6, Globulin 3.0, Albumin/Globulin Ratio 1.2 06/09/17 20:37: PT 11.3, INR 0.99, APTT 26.7 I have reviewed the lab results: Yes - RAD Interpretation Radiology Orders: 06/09/17 19:59 CHEST PORTABLE [RAD] Stat - Medication Orders Current Medication Orders: Discontinued Medications Albuterol/Ipratropium (Duoneb 3 Mg/0.5 Mg (3 Ml) Ud) 3 ml IH ONCE STA Stop: 06/09/17 20:01 Last Admin: 06/09/17 20:30 Dose: 3 ml Albuterol/Ipratropium (Duoneb 3 Mg/0.5 Mg (3 Ml) Ud) 3 ml IH ONCE STA Stop: 06/10/17 00:22 Methylprednisolone (Solu-Medrol) 125 mg IVP ONCE ONE Stop: 06/09/17 20:01 Last Admin: 06/09/17 20:37 Dose: 125 mg IVP Administration Document 06/09/17 20:37 ID (Rec: 06/09/17 20:43 [id number]) Charges for Administration # of IVP Administrations 1 Disposition/Present on Arrival - Present on Arrival Any Indicators Present on Arrival: No History of DVT/PE: No History of Uncontrolled Diabetes: Yes Urinary Catheter: No History of Decub. Ulcer: No History Surgical Site Infection Following: None - Disposition Have Diagnosis and Disposition been Completed?: Yes Diagnosis: COPD exacerbation Disposition: HOSPITALIZED Disposition Time: 00:48 Patient Problems: Current Active Problems Problem Status Onset COPD exacerbation Acute Condition: STABLE Referrals: Ravi Lan MD [Primary Care Provider] - Follow up with primary Forms: ChoiceMap (Senegalese)
[2017-06-10] MEDS ORDERED: Albuterol-Ipratrop 3 mg / 0.5 (3 ml) UD IH STA (00:21)
--- NOTE | 2017-06-10 01:41 | CP.PCM.HP ---
History of Present Illness - History of Present Illness History of Present Illness: Patient is a 62 year old male with a PMHx of COPD (on 2L Home O2), Pancreatitis , HIV, DM II, Hep C, and Cataracts disease who presents complaining of worsening SOB x 10 days. Patient cannot identify any factors that could have caused his SOB. Patient tried to relieve his symptoms with his DuoNeb without success. Patient states he [place] [facility] [place] He stayed for 3 days because they would not give him any Solu-medrol because he stated that he had a reaction to prednisone. Patient states that before discharge [place] [facility] [place] he received a low dose Solu-Medrol with slightly relieved his symptoms. He also states his symptoms have improved since getting IV Solu-Medrol in the ED. ROS: POSITIVE: Subjective Fever, Chills, SOB, Dry Cough, Chest tightness, Loose stools, Orthopnea, dyspnea on exertion, medical compliance NEGATIVE: Sick contacts, palpitations, chest pain, abdominal pain, nausea, vomiting, urinary symptoms. PMHx: COPD (on 2L Home O2), Pancreatitis, HIV, DM II, Hep C, and Cataracts PSHx: Right Cataract Surgery Allergies: Prednisone (He states his throat closes up) SocialHx: 1PPD for 51 years. Quit about 12 years ago. Admits to occasional Heroin Use Hos[place] [facility] [place] [place] exacerbation last week FamHx: Non-Cont. Meds: Chart Reviewed, Patient will likely need medication reconciliation in the morning. He is unsure of the name of one of his HIV medications. PMD: Dr. Holman (Clinic in [facility] in [place]) Present on Admission - Present on Admission Any Indicators Present on Admission: No Review of Systems - Review of Systems Review of Systems: As per HPI Past Patient History - Infectious Disease Hx of Infectious Diseases: None - Tetanus Immunizations Tetanus Immunization: Unknown - Past Medical History & Family History Past Medical History?: Yes - Past Social History Smoking Status: Former Smoker - CARDIAC Hx Cardiac Disorders: Yes Hx Hypertension: Yes - PULMONARY Hx Respiratory Disorders: Yes Hx Asthma: Yes Hx Bronchitis: Yes Hx Chronic Obstructive Pulmonary Disease (COPD): Yes (on O2 via NC @ 2lpm) Hx Emphysema: Yes Hx Pneumonia: Yes Hx Sleep Apnea: Yes - NEUROLOGICAL Hx Neurological Disorder: No - HEENT Hx HEENT Problems: No - RENAL Hx Chronic Kidney Disease: No - ENDOCRINE/METABOLIC Hx Endocrine Disorders: Yes Hx Diabetes Mellitus Type 2: Yes - HEMATOLOGICAL/ONCOLOGICAL Hx Blood Disorders: Yes - INTEGUMENTARY Hx Dermatological Problems: No - MUSCULOSKELETAL/RHEUMATOLOGICAL Hx Arthritis: Yes - GASTROINTESTINAL Hx Gastrointestinal Disorders: Yes Hx Pancreatitis: Yes - GENITOURINARY/GYNECOLOGICAL Hx Genitourinary Disorders: No - PSYCHIATRIC Hx Psychophysiologic Disorder: Yes Hx Anxiety: Yes Hx Substance Use: No (denies) - SURGICAL HISTORY Hx Orthopedic Surgery: Yes (RT KNEE) Other/Comment: comestic surgery to face post getting kicked in face by horse - ANESTHESIA Hx Anesthesia: Yes Hx Anesthesia Reactions: No Hx Malignant Hyperthermia: No Meds Allergies/Adverse Reactions: Allergies Allergy/AdvReac Type Severity Reaction Status Date / Time No Known Allergies Allergy Verified 10/05/16 16:23 Physical Exam - Constitutional Appears: Older Than Stated Age, Chronically Ill - Head Exam Head Exam: ATRAUMATIC, NORMAL INSPECTION, NORMOCEPHALIC - Eye Exam Eye Exam: Normal appearance - ENT Exam ENT Exam: Mucous Membranes Dry - Neck Exam Neck exam: Positive for: Normal Inspection - Respiratory Exam Respiratory Exam: Accessory Muscle Use, Rales (Diffuse), Wheezes (Diffuse). absent: Clear to Auscultation Bilateral - Cardiovascular Exam Cardiovascular Exam: RRR, +S1, +S2 - GI/Abdominal Exam GI & Abdominal Exam: Hyperactive Bowel Sounds, Normal Bowel Sounds, Soft. absent: Tenderness - Extremities Exam Extremities exam: Positive for: tenderness (Distal Lower Ext. ). Negative for: pedal edema - Neurological Exam Neurological exam: Alert, Oriented x3 - Psychiatric Exam Psychiatric exam: Normal Affect, Normal Mood - Skin Skin Exam: Dry, Intact, Normal Color, Warm Results - Vital Signs Recent Vital Signs: Last Vital Signs Temp 98.5 F 06/09/17 20:44 Pulse 80 06/09/17 23:43 Resp 16 06/09/17 23:43 BP 132/65 06/09/17 21:53 Pulse Ox 97 06/09/17 23:43 - Labs Result Diagrams: 06/09/17 20:37 06/09/17 20:37 Assessment & Plan - Assessment and Plan (Free Text) Assessment: 62 year old male with a PMHx of COPD (on 2L Home O2), Pancreatitis, HIV, DM II, Hep C, and Cataracts disease who presents complaining of worsening SOB x 10 days. Plan: SOB 2/2 to COPD Exacerbation. R/O new onset CHF w/ Exacerbation Solu Medrol and DuNebs in ED CXR: may show mild pulm venous congestion but no acute disease process. F/U Official Read DuoNebs Q6H [facility], Q2H PRN Home Lasix 20 PO increased to 40 PO Daily ECHO Levaquin 750mg IV Daily I/O, Daily Weights. Consider Pulm Consult Hx of HIV Started home Abacavir Started Home Mepron (PCP Prophylaxis?). Patient needs medication reconciliation with pharmacy and/or PMD Consider ID consult Consider CD4 Count and Viral load Hx of DMII ISS Neurontin for Diabetic neuropathy Hx of Hep C outpatient Follow up Hx of HTN Started Home Norvasc 5. Valsartan and Aldactone listed in Home Meds. Patient needs medication verification. He is currently normotensive. Proph Pepcid/Heparin/Probiotic Patient needs verification of Antihypertensives and HAART therapy in the AM. Patient seen and discussed with Attending Otf Orta, PGY1
[2017-06-10] MEDS ORDERED: Albuterol 0.083% Inhal Sol (2.5 mg/3 mL) UD IH PRN (03:09)
[2017-06-10 04:19] VITALS: BMI 25.8
[2017-06-10] MEDS: Albuterol-Ipratrop 3 mg / 0.5 (3 ml) UD IH PRN ×2 (04:24→08:56)
[2017-06-10] MEDS ORDERED: levoFLOXacin 750 mg in D5W 150 ML BAG IVPB SCH (06:00)
[2017-06-10 06:18] LABS: URINE BILIRUBIN NEGATIVE (NEGATIVE); URINE BLOOD NEGATIVE (NEGATIVE); URINE GLUCOSE (UA) >=1000 mg/dL (NEGATIVE); URINE LEUKOCYTE ESTERASE NEGATIVE Leu/uL (NEGATIVE); URINE NITRATE NEGATIVE (NEGATIVE); URINE PROTEIN NEGATIVE mg/dL (<30 mg/dL); URINE UROBILINOGEN 0.2 E.U./dL (<1 E.U./dL)
[2017-06-10 06:19] LABS: URINE APPEARANCE CLEAR (CLEAR); URINE COLOR YELLOW (YELLOW)
[2017-06-10 06:52] LABS: BARBITURATES, UR NEGATIVE (NEGATIVE); BENZODIAZEPINES, UR NEGATIVE (NEGATIVE); OPIATES, UR POSITIVE (NEGATIVE); PHENCYCLIDINE, UR NEGATIVE (NEGATIVE)
[2017-06-10 07:14] LABS: GRAN # 6.79 (1.4-6.5); GRAN % 91.6 % (50.0-68.0); HEMOGLOBIN 10.5 g/dL (14.0-18.0); LYMPH # 0.5 (1.2-3.4); LYMPH % 6.2 % (22.0-35.0); MEAN CELL VOLUME 93.6 fl (80.0-105.0); MEAN CORPUSCULAR HEMOGLOBIN 29.2 pg (25.0-35.0); MEAN CORPUSCULAR HGB CONC 31.3 g/dl (31.0-37.0); MEAN PLATELET VOLUME 9.5 fl (7.0-11.0); MONO # 0.2 (0.1-0.6); MONO % 2.2 % (1.0-6.0); PLATELET COUNT 253 10^3/uL (120.0-450.0); RBC 3.59 10^6/uL (3.5-6.1); RED CELL DISTRIBUTION WIDTH 14.5 % (11.5-14.5); WHITE BLOOD COUNT 7.4 10^3/ul (4.5-11.0)
[2017-06-10] MEDS ORDERED: Insulin Reg-MEDIUM-Coverage SC SCH (07:30)
[2017-06-10] MEDS: Albuterol-Ipratrop 3 mg / 0.5 (3 ml) UD IH SCH ×3 (07:45→20:23)
[2017-06-10 07:47] LABS: ALB/GLOB RATIO 1.2 (1.1-1.8); ALBUMIN 3.6 g/dL (3.0-4.8); ALT/SGPT 35 U/L (7-56); AST/SGOT 22 U/L (17-59); BLOOD UREA NITROGEN 28 mg/dL (7-21); CALCIUM 9.3 mg/dL (8.4-10.5); GFR AFRICAN-AMERICAN > 60; GFR NON-AFRICAN AMERICAN > 60
[2017-06-10] MEDS ORDERED: Albuterol-Ipratrop 3 mg / 0.5 (3 ml) UD IH SCH (08:00)
[2017-06-10 08:58] LABS: NEUTROPHIL 87 % (50.0-70.0)
[2017-06-10 08:59] LABS: ANISOCYTOSIS SLIGHT; BAND 4 % (0-2); LYMPHOCYTE 7 % (22.0-35.0); MONOCYTE 2 % (1.0-6.0); PLATELET ESTIMATE NORMAL (NORMAL)
--- NOTE | 2017-06-10 09:40 | RAD ---
HISTORY: sob COMPARISON: No prior. FINDINGS: LUNGS: No active pulmonary disease. PLEURA: No significant pleural effusion identified, no pneumothorax apparent. CARDIOVASCULAR: Normal. OSSEOUS STRUCTURES: No significant abnormalities. VISUALIZED UPPER ABDOMEN: Normal. OTHER FINDINGS: None. IMPRESSION: No active disease.
[2017-06-10] MEDS: Lactobacillus Acidophilus 500 MU Cap PO SCH ×2 (10:26→17:57)
[2017-06-10] MEDS: Insulin Detemir 100 units/ml Vial (Levemir) SC SCH ×2 (10:28→22:56)
[2017-06-10] MEDS: Atovaquone 750 mg/5 ml Susp UD PO SCH ×2 (10:28→17:57)
[2017-06-10] MEDS ORDERED: Fluticasone-Salmeterol 250-50mcg Diskus IH SCH (10:30)
[2017-06-10 11:41] LABS: T4 7.1 ug/dL (5.5-11.0)
[2017-06-10] MEDS: Cefepime 1gm in NS 100ml 1 GM/100 ML BAG IVPB SCH (12:20)
[2017-06-10] MEDS: MethylPREDNISolone 40 mg Vial IVP SCH ×2 (12:21→20:50)
[2017-06-10] MEDS: Insulin Reg-HIGH-Coverage SC SCH ×3 (12:25→22:57)
[2017-06-10] MEDS: Vancomycin 1gm in NS 250ml 1 GM/250 ML BAG IVPB SCH (14:22)
[2017-06-10] MEDS ORDERED: Dextrose 50% SYRINGE Inj (50 ml) IV PRN (18:26)
--- NOTE | 2017-06-10 19:28 | CARD ---
APPROVED REPORT EXAM: Two-dimensional and M-mode echocardiogram with Doppler and color Doppler. INDICATION Dyspnea 2D DIMENSIONS Left Atrium (2D)3.4 (1.6-4.0cm)IVSd1.1 (0.7-1.1cm) LVDd4.1 (3.9-5.9cm)PWd1.2 (0.7-1.1cm) LVDs3.1 (2.5-4.0cm)FS (%) 25.3 % LVEF (%)50.5 (>50%) M-Mode DIMENSIONS Aortic Root2.70 (2.2-3.7cm)Aortic Cusp Exc.1.30 (1.5-2.0cm) Aortic Valve AoV Peak Dvwuyhkv876.0cm/Wendy Peak GR.7mmHg Mitral Valve MV E Gruzhczq89.4cm/sMV A Tjfqfueh51.1cm/sE/A ratio0.7 TDI E/Lateral E'0.0E/Medial E'0.0 Tricuspid Valve TR Peak Xoalplli716ag/sRAP [id number] Peak Gr.23mmHg [id number] LEFT VENTRICLE The left ventricle is normal size. There is normal left ventricular wall thickness. Left ventricle systolic function is borderline. Transmitral Doppler flow pattern is Grade I-abnormal relaxation pattern. RIGHT VENTRICLE The right ventricle is normal size. There is normal right ventricular wall thickness. The right ventricular systolic function is normal. ATRIA The left atrium size is normal. The right atrium size is normal. AORTIC VALVE The aortic valve is normal in structure. No aortic regurgitation is present. MITRAL VALVE Mitral regurgitation is trace. TRICUSPID VALVE There is trace tricuspid regurgitation. GREAT VESSELS The aortic root is normal in size. The IVC is normal in size and collapses >50% with inspiration. PERICARDIAL EFFUSION There is a trace loculated anterior pericardial effusion. <Conclusion> The left ventricle is normal size. There is normal left ventricular wall thickness. Left ventricle systolic function is borderline. Transmitral Doppler flow pattern is Grade I-abnormal relaxation pattern. Mitral regurgitation is trace. There is trace tricuspid regurgitation.
[2017-06-10] MEDS ORDERED: Arformoterol 15 mcg/2 ml Inh Sol IH SCH (20:00)
[2017-06-10] MEDS: Budesonide 0.5 mg/2 ml Inhal Susp UD IH SCH (20:23)
[2017-06-10] MEDS: Arformoterol 15 mcg/2 ml Inh Sol IH SCH (20:23)
--- NOTE | 2017-06-10 22:14 | CARD ---
APPROVED REPORT EKG Measurement Heart [id number] <Conclusion> Sinus tachycardia Otherwise normal ECG
[2017-06-11] MEDS: Albuterol-Ipratrop 3 mg / 0.5 (3 ml) UD IH SCH ×4 (01:38→21:05)
[2017-06-11] MEDS: MethylPREDNISolone 40 mg Vial IVP SCH ×3 (02:36→17:15)
[2017-06-11 06:30] LABS: GRAN # 7.45 (1.4-6.5); GRAN % 89.3 % (50.0-68.0); HEMOGLOBIN 10.1 g/dL (14.0-18.0); LYMPH # 0.7 (1.2-3.4); LYMPH % 7.8 % (22.0-35.0); MEAN CELL VOLUME 91.7 fl (80.0-105.0); MEAN CORPUSCULAR HGB CONC 31.7 g/dl (31.0-37.0); MEAN PLATELET VOLUME 9.3 fl (7.0-11.0); MONO # 0.2 (0.1-0.6); MONO % 2.9 % (1.0-6.0); RBC 3.48 10^6/uL (3.5-6.1); RED CELL DISTRIBUTION WIDTH 14.3 % (11.5-14.5); WHITE BLOOD COUNT 8.3 10^3/ul (4.5-11.0)
[2017-06-11 06:42] LABS: ALB/GLOB RATIO 1.2 (1.1-1.8); ALBUMIN 3.5 g/dL (3.0-4.8); ALT/SGPT 38 U/L (7-56); AST/SGOT 21 U/L (17-59); BLOOD UREA NITROGEN 29 mg/dL (7-21); CALCIUM 10.1 mg/dL (8.4-10.5); GFR AFRICAN-AMERICAN > 60; GFR NON-AFRICAN AMERICAN > 60
[2017-06-11] MEDS: Acetylcysteine 20% Inhal Soln (4ml) IH SCH ×3 (07:54→21:04)
[2017-06-11] MEDS: Arformoterol 15 mcg/2 ml Inh Sol IH SCH ×2 (07:54→21:04)
[2017-06-11] MEDS: Budesonide 0.5 mg/2 ml Inhal Susp UD IH SCH ×2 (07:55→21:05)
[2017-06-11] MEDS: Atovaquone 750 mg/5 ml Susp UD PO SCH ×2 (09:28→17:14)
[2017-06-11] MEDS: Vancomycin 1gm in NS 250ml 1 GM/250 ML BAG IVPB SCH (09:28)
[2017-06-11] MEDS: Lactobacillus Acidophilus 500 MU Cap PO SCH ×2 (09:29→17:12)
[2017-06-11] MEDS: guaiFENesin 600 mg ER Tab PO SCH ×3 (09:29→17:14)
[2017-06-11] MEDS: Insulin Reg-HIGH-Coverage SC SCH ×4 (09:31→21:45)
[2017-06-11] MEDS: Insulin Detemir 100 units/ml Vial (Levemir) SC SCH ×2 (09:31→21:43)
[2017-06-11] MEDS: Cefepime 1gm in NS 100ml 1 GM/100 ML BAG IVPB SCH (09:33)
--- NOTE | 2017-06-11 12:45 | CP.PCM.PN ---
<Ant Han - Last Filed: 06/11/17 13:43> Subjective - Date & Time of Evaluation Date of Evaluation: 06/11/17 Time of Evaluation: 07:20 - Subjective Subjective: Medicine progress note for Dr. Rodriguez Hospitalist Service Patient seen and examined. Patient states that he still feels congested and cannot bring up sputum. Continues to have dry cough. Denies fevers, chills, chest pain, dyspnea, abdominal pain, dysuria. Patient was later seen walking during rounds. Objective - Vital Signs/Intake and Output Vital Signs (last 24 hours): Temp Pulse Resp BP Pulse Ox 98.1 F 84 18 122/80 98 06/11/17 12:00 06/11/17 12:00 06/11/17 12:00 06/11/17 12:00 06/11/17 06:00 Intake and Output: 06/11/17 06/11/17 06:59 18:59 Intake Total 1310 Output Total 3200 Balance -1890 - Medications Medications: Current Medications Abacavir Sulfate (Ziagen) 300 mg PO BID [facility] Last Admin: 06/11/17 09:30 Dose: 300 mg Acetylcysteine (Acetylcysteine 20%) 4 ml IH [id number] [facility] Last Admin: 06/11/17 07:54 Dose: 4 ml Albuterol/Ipratropium (Duoneb 3 Mg/0.5 Mg (3 Ml) Ud) 3 ml IH Q2H PRN PRN Reason: Shortness of Breath Last Admin: 06/10/17 08:56 Dose: 3 ml Albuterol/Ipratropium (Duoneb 3 Mg/0.5 Mg (3 Ml) Ud) 3 ml IH [id number] [facility] Last Admin: 06/11/17 07:54 Dose: 3 ml Alprazolam (Xanax) 0.25 mg PO Q8H PRN; Protocol PRN Reason: Anxiety Stop: 06/18/17 09:33 Amlodipine Besylate (Norvasc) 5 mg PO DAILY [facility] Last Admin: 06/11/17 09:31 Dose: 5 mg Arformoterol Tartrate (Brovana) 15 mcg IH [id number] [facility] Last Admin: 06/11/17 07:54 Dose: 15 mcg Atovaquone (Mepron) 750 mg PO BID [facility] Last Admin: 06/11/17 09:28 Dose: 750 mg Budesonide (Pulmicort Respules) 0.5 mg IH [id number] [facility] Last Admin: 06/11/17 07:55 Dose: 0.5 mg Famotidine (Pepcid) 20 mg PO BID [facility] Last Admin: 06/11/17 09:30 Dose: 20 mg Furosemide (Lasix) 40 mg PO DAILY [facility] Last Admin: 06/11/17 09:29 Dose: 40 mg Gabapentin (Neurontin) 300 mg PO TID [facility] PRN Reason: Protocol Last Admin: 06/11/17 09:30 Dose: 300 mg Guaifenesin (Mucinex La) 600 mg PO BID [facility] Last Admin: 06/11/17 09:47 Dose: Not Given Heparin Sodium (Porcine) (Heparin) 5,000 units SC Q8 [facility] PRN Reason: Protocol Last Admin: 06/11/17 05:14 Dose: Not Given Cefepime HCl (Maxipime 1gm) 1 gm in 100 mls @ 100 mls/hr IVPB Q24H [facility] PRN Reason: Protocol Last Admin: 06/11/17 09:33 Dose: 100 mls/hr Vancomycin HCl (Vancomycin 1gm) 1 gm in 250 mls @ 167 mls/hr IVPB DAILY [facility] PRN Reason: Protocol Last Admin: 06/11/17 09:28 Dose: 167 mls/hr Insulin Detemir (Levemir) 20 unit SC Q12H [facility] Last Admin: 06/11/17 09:31 Dose: 20 unit Insulin Human Regular (Humulin R High) 0 units SC ACHS [facility] PRN Reason: Protocol Last Admin: 06/11/17 09:31 Dose: 1 units Lactobacillus Acidophilus (Bacid Acidophilus) 1 cap PO BID [facility] Last Admin: 06/11/17 09:29 Dose: 1 cap Lamivudine (Epivir) 150 mg PO BID [facility] Last Admin: 06/11/17 09:30 Dose: 150 mg Methylprednisolone (Solu-Medrol) 40 mg IVP Q8H [facility] Last Admin: 06/11/17 09:34 Dose: 40 mg Montelukast Sodium (Singulair) 10 mg PO HS [facility] Last Admin: 06/10/17 22:56 Dose: 10 mg Raltegravir (Isentress) 400 mg PO Q12 [facility] Last Admin: 06/11/17 09:33 Dose: 400 mg - Labs Labs: 06/11/17 05:45 06/11/17 05:45 PT 11.3 SECONDS (9.4-12.5) 06/09/17 20:37 INR 0.99 (0.93-1.08) 06/09/17 20:37 APTT 26.7 Seconds (25.1-36.5) 06/09/17 20:37 - Constitutional Appears: No Acute Distress - Head Exam Head Exam: ATRAUMATIC, NORMOCEPHALIC - Eye Exam Eye Exam: EOMI, Normal appearance - ENT Exam ENT Exam: Mucous Membranes Dry - Respiratory Exam Respiratory Exam: NORMAL BREATHING PATTERN. absent: Rales, Rhonchi, Wheezes Additional comments: Coarse breath sounds bilaterally - Cardiovascular Exam Cardiovascular Exam: REGULAR RHYTHM, +S1, +S2 - GI/Abdominal Exam GI & Abdominal Exam: Soft, Normal Bowel Sounds. absent: Distended, Guarding, Tenderness - Extremities Exam Extremities Exam: absent: Pedal Edema, Tenderness - Neurological Exam Neurological Exam: Alert, Awake, Oriented x3 - Psychiatric Exam Psychiatric exam: Anxious - Skin Skin Exam: Dry, Warm Assessment and Plan - Assessment and Plan (Free Text) Assessment: This is a 62 year old male with PMHx of COPD on 2L Home Oxygen, Pancreatitis, HIV, DM II, Hep C, and Cataracts who presented complaining of worsening dyspnea for the past 10 days. Patient has been continually in and out of various emergency departments and hospitals in the area. Empirically covering for healthcare associated pneumonia due to this reason; however, his dyspnea is most likely due to COPD exacerbation. Plan: COPD Exacerbation Duoneb Q6H scheduled along with Mucomyst Q6H scheduled Duoneb Q2 prn dyspnea Solumedrol 40 mg IV Q8 Mucinex 600 mg PO BID Singulair, Pulmicort, Brovana Vancomycin and Cefepime History of HIV Resumed Abacavir, Lamivudine, Raltegravir, Atovaquone History of Type 2 Diabetes Regular insulin sliding scale Resumed Neurontin Resumed Levemir 20 units SC Q12 History of Hepatitis C outpatient Follow up History of Hypertension Resumed home Norvasc Prophylaxis GI: Pepcid DVT: Heparin Disposition: Will continue to monitor respiratory status. Patient ambulating, may not be candidate for TCU and will likely be discharged home when the time comes. He will follow up with PMD Dr. Holman. Seen and discussed with Dr. Rodriguez <Dulce Rodriguez - Last Filed: 06/11/17 16:21> Objective - Vital Signs/Intake and Output Vital Signs (last 24 hours): Temp Pulse Resp BP Pulse Ox 98.1 F 84 18 122/80 98 06/11/17 12:00 06/11/17 12:00 06/11/17 12:00 06/11/17 12:00 06/11/17 06:00 - Medications Medications: Current Medications Abacavir Sulfate (Ziagen) 300 mg PO BID [facility] Last Admin: 06/11/17 09:30 Dose: 300 mg Acetylcysteine (Acetylcysteine 20%) 4 ml IH [id number] [facility] Last Admin: 06/11/17 13:22 Dose: 4 ml Albuterol/Ipratropium (Duoneb 3 Mg/0.5 Mg (3 Ml) Ud) 3 ml IH Q2H PRN PRN Reason: Shortness of Breath Last Admin: 06/10/17 08:56 Dose: 3 ml Albuterol/Ipratropium (Duoneb 3 Mg/0.5 Mg (3 Ml) Ud) 3 ml IH [id number] [facility] Last Admin: 06/11/17 13:22 Dose: 3 ml Alprazolam (Xanax) 0.25 mg PO Q8H PRN; Protocol PRN Reason: Anxiety Stop: 06/18/17 09:33 Amlodipine Besylate (Norvasc) 5 mg PO DAILY [facility] Last Admin: 06/11/17 09:31 Dose: 5 mg Arformoterol Tartrate (Brovana) 15 mcg IH [id number] [facility] Last Admin: 06/11/17 07:54 Dose: 15 mcg Atovaquone (Mepron) 750 mg PO BID [facility] Last Admin: 06/11/17 09:28 Dose: 750 mg Budesonide (Pulmicort Respules) 0.5 mg IH [id number] [facility] Last Admin: 06/11/17 07:55 Dose: 0.5 mg Famotidine (Pepcid) 20 mg PO BID [facility] Last Admin: 06/11/17 09:30 Dose: 20 mg Furosemide (Lasix) 40 mg PO DAILY [facility] Last Admin: 06/11/17 09:29 Dose: 40 mg Gabapentin (Neurontin) 300 mg PO TID [facility] PRN Reason: Protocol Last Admin: 06/11/17 09:30 Dose: 300 mg Guaifenesin (Mucinex La) 600 mg PO BID [facility] Last Admin: 06/11/17 09:47 Dose: Not Given Heparin Sodium (Porcine) (Heparin) 5,000 units SC Q8 [facility] PRN Reason: Protocol Last Admin: 06/11/17 05:14 Dose: Not Given Cefepime HCl (Maxipime 1gm) 1 gm in 100 mls @ 100 mls/hr IVPB Q24H [facility] PRN Reason: Protocol Last Admin: 06/11/17 09:33 Dose: 100 mls/hr Vancomycin HCl (Vancomycin 1gm) 1 gm in 250 mls @ 167 mls/hr IVPB DAILY [facility] PRN Reason: Protocol Last Admin: 06/11/17 09:28 Dose: 167 mls/hr Insulin Detemir (Levemir) 20 unit SC Q12H [facility] Last Admin: 06/11/17 09:31 Dose: 20 unit Insulin Human Regular (Humulin R High) 0 units SC ACHS [facility] PRN Reason: Protocol Last Admin: 06/11/17 12:58 Dose: 7 units Lactobacillus Acidophilus (Bacid Acidophilus) 1 cap PO BID [facility] Last Admin: 06/11/17 09:29 Dose: 1 cap Lamivudine (Epivir) 150 mg PO BID [facility] Last Admin: 06/11/17 09:30 Dose: 150 mg Methylprednisolone (Solu-Medrol) 40 mg IVP Q8H [facility] Last Admin: 06/11/17 09:34 Dose: 40 mg Montelukast Sodium (Singulair) 10 mg PO HS [facility] Last Admin: 06/10/17 22:56 Dose: 10 mg Raltegravir (Isentress) 400 mg PO Q12 [facility] Last Admin: 06/11/17 09:33 Dose: 400 mg - Labs Labs: PT 11.3 SECONDS (9.4-12.5) 06/09/17 20:37 INR 0.99 (0.93-1.08) 06/09/17 20:37 APTT 26.7 Seconds (25.1-36.5) 06/09/17 20:37 Attending/Attestation - Attestation I have personally seen and examined this patient.: Yes I have fully participated in the care of the patient.: Yes I have reviewed all pertinent clinical information, including history, physical exam and plan: Yes Notes (Text): 06/11/17 16:17 attending note; Patient seen and examined with the resident. Patient is a 62 year old male with PMHx of COPD on 2L Home Oxygen, Pancreatitis , HIV,, Hep C, and Cataracts who presented complaining of worsening dyspnea for the past 10 days. currently admitted with COPD exacerbation. Chest x-ray is negative for pneumonia. Started on empiric anti-biotics since the patient has significant sputum production. Continue oxygen, DuoNeb, IV Solu-Medrol. Monitor respiratory status closely. Anxiety; psychiatric evaluation requested. HIV; continue home medication. Needs follow-up with ID as outpatient. PT evaluation requested. Case discussed with bilingual patient support caseworker for discharge planning.
[2017-06-12] MEDS: Acetylcysteine 20% Inhal Soln (4ml) IH SCH ×6 (01:55→20:42)
[2017-06-12] MEDS: Albuterol-Ipratrop 3 mg / 0.5 (3 ml) UD IH SCH ×4 (01:55→20:43)
[2017-06-12] MEDS ORDERED: MethylPREDNISolone 40 mg Vial IVP SCH (06:00)
[2017-06-12 07:02] LABS: GRAN # 7.82 (1.4-6.5); GRAN % 79.1 % (50.0-68.0); HEMOGLOBIN 10.6 g/dL (14.0-18.0); LYMPH # 1.4 (1.2-3.4); MEAN CELL VOLUME 91.8 fl (80.0-105.0); MEAN CORPUSCULAR HEMOGLOBIN 28.8 pg (25.0-35.0); MEAN CORPUSCULAR HGB CONC 31.4 g/dl (31.0-37.0); MEAN PLATELET VOLUME 9.7 fl (7.0-11.0); MONO # 0.7 (0.1-0.6); MONO % 6.9 % (1.0-6.0); RBC 3.68 10^6/uL (3.5-6.1); RED CELL DISTRIBUTION WIDTH 14.2 % (11.5-14.5); WHITE BLOOD COUNT 9.9 10^3/ul (4.5-11.0)
[2017-06-12 07:23] LABS: ALB/GLOB RATIO 1.1 (1.1-1.8); ALBUMIN 3.6 g/dL (3.0-4.8); ALT/SGPT 35 U/L (7-56); AST/SGOT 22 U/L (17-59); BLOOD UREA NITROGEN 32 mg/dL (7-21); CALCIUM 10.2 mg/dL (8.4-10.5); GFR AFRICAN-AMERICAN > 60; GFR NON-AFRICAN AMERICAN 51
[2017-06-12] MEDS: Insulin Reg-HIGH-Coverage SC SCH ×4 (07:52→21:40)
[2017-06-12] MEDS: Budesonide 0.5 mg/2 ml Inhal Susp UD IH SCH ×2 (08:00→20:43)
[2017-06-12] MEDS: Arformoterol 15 mcg/2 ml Inh Sol IH SCH ×2 (08:00→20:43)
--- NOTE | 2017-06-12 08:11 | CON ---
DATE: 06/11/2017 PRESENTATION: The patient is a 62-year-old male who was admitted to the hospital on 06/09/2017. He comes complaining of shortness of breath, feels he is having a flare up of his emphysema. He had recently been to [facility] for the same complaints. Psychiatric consultation was ordered due to anxiety. Patient is seen at bedside. He indicates that he lives alone in an apartment on [address] and he has social security disability for the last 15 years due to emphysema. He indicates that he has enough money to pay for his rent as well as food. He has no shortage of food. He denies any past psychiatric history. He has never seen a psychiatrist in the past, never been to psychiatric hospital, had a psychiatric evaluation. No history of suicide attempts or suicidal ideation. Medically, patient has emphysema, diabetes, pancreatitis, HIV. He has had HIV since the , indicates that it is not detectable in his blood at this point in time, but that he at that time was living a risky lifestyle in terms of sexual partners and using intravenous drugs. He indicates since he was diagnosed, he has not used drugs nor has he had sex out of concern that he might pass the disease onto others because he knows how it feels that someone maybe did not tell him that they had been infected. Patient indicates he stopped all drugs and drinking in 1989. He was using alcohol, heroin and cocaine. Legally he has no legal charges, never was arrested or been in [facility]. Denies any access to weapons. He indicates there is no family history of depression other than he has one brother who is currently who had anxiety and depression; however, he also used drugs and alcohol. Patient grew up in [place]. He was number 7 of 11 siblings and he was one of 5 boys of that group. His parents stayed together. He said his childhood was really good. He was very close to one of his brothers and they always been all their time together. He indicates that he did okay in school, but it really was not for him. 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 He has traveled to many states. 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 Until he got disabled, he was able to support himself. He has one daughter who lives in [place] with two grandchildren and he would like to have an opportunity to be near them. He has one sister living here that he is very close to and he indicates that his only psychiatric issue he has is that he has a lot of anxiety. His PMD in the past had prescribed low dose of Xanax for him and he indicated that he only used it p.r.n. and that a bottle would last from a year or two. So he did not abuse it. CURRENT VITAL SIGNS: 97.5 temperature, pulse rate of 72, blood pressure 126/76, respiratory rate of 20, O2 sat of 98%. He is cooperative with medical routine, taking his medication as prescribed as well as his respiratory treatments. As he is talking it, he is right after his treatment, there is a lot of movement of sputum and then it settles and he starts to have difficulty towards the end of the time I meet with him. MENTAL STATUS: Patient is alert and oriented x3. His eye contact is good. His behavior is both pleasant and cooperative. His speech rate and volume are within normal limits. Mood is euthymic. Affect is full. Thoughts are goal-directed. He denies being suicidal or homicidal. Denies the presence of hallucinations, delusions or paranoia. His concentration and his focus he reports are normal. His memory both short and long-term appears to be adequate. His appetite is good. His sleep however is disrupted due to his breathing difficulties. DIAGNOSTIC IMPRESSION: Anxiety related to medical condition, chronic obstructive pulmonary disease. PLAN: Patient denies being suicidal or homicidal, does not appear in any imminent danger for himself or others. He has no history of any psychiatric difficulties and no history of suicide attempts. His only identified problem is anxiety. I ordered Xanax 0.25 mg q. 8 hours p.r.n. anxiety for him. He is aware that I am ordering this and knows he needs to ask for it should he need it and the nursing staff are aware as well. I will sign off on this patient at this time. Please call if there are any other needs. Thank you for the consult. Holley Graham APN Doris Johnston MD [facility] # [id number] JOCELYN
[2017-06-12] MEDS ORDERED: Potassium Chloride 20 mEq ER Tab PO STA (08:16)
[2017-06-12] MEDS: Lactobacillus Acidophilus 500 MU Cap PO SCH ×2 (10:46→18:50)
[2017-06-12] MEDS: Vancomycin 1gm in NS 250ml 1 GM/250 ML BAG IVPB SCH (10:47)
[2017-06-12] MEDS: Atovaquone 750 mg/5 ml Susp UD PO SCH ×4 (10:47→21:56)
[2017-06-12] MEDS: guaiFENesin 600 mg ER Tab PO SCH ×3 (10:47→18:50)
[2017-06-12] MEDS: Insulin Detemir 100 units/ml Vial (Levemir) SC SCH ×2 (11:10→21:55)
[2017-06-12] MEDS: Cefepime 1gm in NS 100ml 1 GM/100 ML BAG IVPB SCH (12:31)
--- NOTE | 2017-06-12 16:17 | CP.PCM.PN ---
<Ant Han - Last Filed: 06/12/17 16:14> Subjective - Date & Time of Evaluation Date of Evaluation: 06/12/17 Time of Evaluation: 07:10 - Subjective Subjective: Medicine progress note for Dr. Rodriguez Hospitalist Service Patient seen and examined. Patient states that he feels that the mucus is breaking up and is now able to cough some of it out. Denies fevers, chills, chest pain, dyspnea, abdominal pain, dysuria. Objective - Vital Signs/Intake and Output Vital Signs (last 24 hours): Temp Pulse Resp BP Pulse Ox 98.5 F 78 18 125/74 94 L 06/12/17 14:00 06/12/17 14:00 06/12/17 14:00 06/12/17 14:00 06/12/17 05:33 Intake and Output: 06/12/17 06/12/17 06:59 18:59 Intake Total 420 300 Output Total 1400 600 Balance -980 -300 - Medications Medications: Current Medications Abacavir Sulfate (Ziagen) 300 mg PO BID [facility] Last Admin: 06/12/17 10:46 Dose: 300 mg Acetylcysteine (Acetylcysteine 20%) 4 ml IH [id number] [facility] Last Admin: 06/12/17 08:01 Dose: Not Given Albuterol/Ipratropium (Duoneb 3 Mg/0.5 Mg (3 Ml) Ud) 3 ml IH Q2H PRN PRN Reason: Shortness of Breath Last Admin: 06/10/17 08:56 Dose: 3 ml Albuterol/Ipratropium (Duoneb 3 Mg/0.5 Mg (3 Ml) Ud) 3 ml IH [id number] [facility] Last Admin: 06/12/17 13:39 Dose: 3 ml Alprazolam (Xanax) 0.25 mg PO Q8H PRN; Protocol PRN Reason: Anxiety Stop: 06/18/17 09:33 Last Admin: 06/12/17 11:10 Dose: 0.25 mg Amlodipine Besylate (Norvasc) 5 mg PO DAILY [facility] Last Admin: 06/12/17 10:46 Dose: 5 mg Arformoterol Tartrate (Brovana) 15 mcg IH [id number] [facility] Last Admin: 06/12/17 08:00 Dose: 15 mcg Atovaquone (Mepron) 750 mg PO BID [facility] Last Admin: 06/12/17 10:47 Dose: 750 mg Budesonide (Pulmicort Respules) 0.5 mg IH [id number] [facility] Last Admin: 06/12/17 08:00 Dose: 0.5 mg Famotidine (Pepcid) 20 mg PO BID [facility] Last Admin: 06/12/17 10:46 Dose: 20 mg Furosemide (Lasix) 40 mg PO DAILY [facility] Last Admin: 06/12/17 10:46 Dose: 40 mg Gabapentin (Neurontin) 300 mg PO TID [facility] PRN Reason: Protocol Last Admin: 06/12/17 14:46 Dose: 300 mg Guaifenesin (Mucinex La) 600 mg PO BID [facility] Last Admin: 06/12/17 10:51 Dose: Not Given Heparin Sodium (Porcine) (Heparin) 5,000 units SC Q8 [facility] PRN Reason: Protocol Last Admin: 06/12/17 14:50 Dose: Not Given Cefepime HCl (Maxipime 1gm) 1 gm in 100 mls @ 100 mls/hr IVPB Q24H [facility] PRN Reason: Protocol Last Admin: 06/12/17 12:31 Dose: 100 mls/hr Vancomycin HCl (Vancomycin 1gm) 1 gm in 250 mls @ 167 mls/hr IVPB DAILY [facility] PRN Reason: Protocol Last Admin: 06/12/17 10:47 Dose: 167 mls/hr Insulin Detemir (Levemir) 20 unit SC Q12H [facility] Last Admin: 06/12/17 11:10 Dose: 20 unit Insulin Human Regular (Humulin R High) 0 units SC ACHS [facility] PRN Reason: Protocol Last Admin: 06/12/17 11:58 Dose: 7 units Lactobacillus Acidophilus (Bacid Acidophilus) 1 cap PO BID [facility] Last Admin: 06/12/17 10:46 Dose: 1 cap Lamivudine (Epivir) 150 mg PO BID [facility] Last Admin: 06/12/17 10:46 Dose: 150 mg Methylprednisolone (Solu-Medrol) 40 mg IVP Q12 [facility] Montelukast Sodium (Singulair) 10 mg PO HS [facility] Last Admin: 06/11/17 21:43 Dose: 10 mg Raltegravir (Isentress) 400 mg PO Q12 [facility] Last Admin: 06/12/17 11:21 Dose: 400 mg - Labs Labs: 06/12/17 06:30 06/12/17 06:30 PT 11.3 SECONDS (9.4-12.5) 06/09/17 20:37 INR 0.99 (0.93-1.08) 06/09/17 20:37 APTT 26.7 Seconds (25.1-36.5) 06/09/17 20:37 - Constitutional Appears: No Acute Distress - Head Exam Head Exam: ATRAUMATIC, NORMOCEPHALIC - Eye Exam Eye Exam: EOMI, Normal appearance - ENT Exam ENT Exam: Mucous Membranes Dry - Respiratory Exam Respiratory Exam: absent: Rales, Rhonchi, Wheezes Additional comments: Coarse breath sounds bilaterally - Cardiovascular Exam Cardiovascular Exam: REGULAR RHYTHM, +S1, +S2 - GI/Abdominal Exam GI & Abdominal Exam: Soft, Normal Bowel Sounds. absent: Distended, Guarding, Tenderness - Extremities Exam Extremities Exam: absent: Pedal Edema, Tenderness - Neurological Exam Neurological Exam: Alert, Awake, Oriented x3 - Psychiatric Exam Psychiatric exam: Anxious - Skin Skin Exam: Dry, Warm Assessment and Plan - Assessment and Plan (Free Text) Assessment: This is a 62 year old male with PMHx of COPD on 2L Home Oxygen, Pancreatitis, HIV, DM II, Hep C, and Cataracts who presented complaining of worsening dyspnea for the past 10 days. Patient has been continually in and out of various emergency departments and hospitals in the area. Empirically covering for healthcare associated pneumonia due to this reason; however, his dyspnea is most likely due to COPD exacerbation. Plan: COPD Exacerbation Duoneb Q6H scheduled along with Mucomyst Q6H scheduled Duoneb Q2 prn dyspnea Solumedrol 40 mg IV Q12 Mucinex 600 mg PO BID Singulair, Pulmicort, Brovana Vancomycin and Cefepime History of HIV Resumed Abacavir, Lamivudine, Raltegravir, Atovaquone History of Type 2 Diabetes Regular insulin sliding scale Resumed Neurontin Resumed Levemir 20 units SC Q12 History of Hepatitis C outpatient Follow up History of Hypertension Resumed home Norvasc Prophylaxis GI: Pepcid DVT: Heparin Disposition: Patient ambulating, not a candidate for TCU. To be discharged home tomorrow and is to follow up with PMD Dr. Holman who is also his ID physician. Seen and discussed with Dr. Rodriguez <Dulce Rodriguez - Last Filed: 06/12/17 18:33> Objective - Vital Signs/Intake and Output Vital Signs (last 24 hours): Temp Pulse Resp BP Pulse Ox 98.5 F 102 H 18 125/74 94 L 06/12/17 14:00 06/12/17 14:00 06/12/17 14:00 06/12/17 14:00 06/12/17 05:33 Intake and Output: 06/12/17 06/12/17 06:59 18:59 Intake Total 420 300 Output Total 1400 600 Balance -980 -300 - Medications Medications: Current Medications Abacavir Sulfate (Ziagen) 300 mg PO BID [facility] Last Admin: 06/12/17 10:46 Dose: 300 mg Acetylcysteine (Acetylcysteine 20%) 4 ml IH [id number] [facility] Last Admin: 06/12/17 14:00 Dose: Not Given Albuterol/Ipratropium (Duoneb 3 Mg/0.5 Mg (3 Ml) Ud) 3 ml IH Q2H PRN PRN Reason: Shortness of Breath Last Admin: 06/10/17 08:56 Dose: 3 ml Albuterol/Ipratropium (Duoneb 3 Mg/0.5 Mg (3 Ml) Ud) 3 ml IH [id number] [facility] Last Admin: 06/12/17 13:39 Dose: 3 ml Alprazolam (Xanax) 0.25 mg PO Q8H PRN; Protocol PRN Reason: Anxiety Stop: 06/18/17 09:33 Last Admin: 06/12/17 11:10 Dose: 0.25 mg Amlodipine Besylate (Norvasc) 5 mg PO DAILY [facility] Last Admin: 06/12/17 10:46 Dose: 5 mg Arformoterol Tartrate (Brovana) 15 mcg IH [id number] [facility] Last Admin: 06/12/17 08:00 Dose: 15 mcg Atovaquone (Mepron) 750 mg PO BID [facility] Last Admin: 06/12/17 10:47 Dose: 750 mg Budesonide (Pulmicort Respules) 0.5 mg IH [id number] [facility] Last Admin: 06/12/17 08:00 Dose: 0.5 mg Famotidine (Pepcid) 20 mg PO BID [facility] Last Admin: 06/12/17 10:46 Dose: 20 mg Furosemide (Lasix) 40 mg PO DAILY [facility] Last Admin: 06/12/17 10:46 Dose: 40 mg Gabapentin (Neurontin) 300 mg PO TID [facility] PRN Reason: Protocol Last Admin: 06/12/17 14:46 Dose: 300 mg Guaifenesin (Mucinex La) 600 mg PO BID [facility] Last Admin: 06/12/17 10:51 Dose: Not Given Heparin Sodium (Porcine) (Heparin) 5,000 units SC Q8 [facility] PRN Reason: Protocol Last Admin: 06/12/17 14:50 Dose: Not Given Cefepime HCl (Maxipime 1gm) 1 gm in 100 mls @ 100 mls/hr IVPB Q24H [facility] PRN Reason: Protocol Last Admin: 06/12/17 12:31 Dose: 100 mls/hr Vancomycin HCl (Vancomycin 1gm) 1 gm in 250 mls @ 167 mls/hr IVPB DAILY [facility] PRN Reason: Protocol Last Admin: 06/12/17 10:47 Dose: 167 mls/hr Insulin Detemir (Levemir) 20 unit SC Q12H [facility] Last Admin: 06/12/17 11:10 Dose: 20 unit Insulin Human Regular (Humulin R High) 0 units SC ACHS [facility] PRN Reason: Protocol Last Admin: 06/12/17 16:59 Dose: 7 units Lactobacillus Acidophilus (Bacid Acidophilus) 1 cap PO BID [facility] Last Admin: 06/12/17 10:46 Dose: 1 cap Lamivudine (Epivir) 150 mg PO BID [facility] Last Admin: 06/12/17 10:46 Dose: 150 mg Methylprednisolone (Solu-Medrol) 40 mg IVP Q12 [facility] Montelukast Sodium (Singulair) 10 mg PO HS [facility] Last Admin: 06/11/17 21:43 Dose: 10 mg Raltegravir (Isentress) 400 mg PO Q12 [facility] Last Admin: 06/12/17 11:21 Dose: 400 mg - Labs Labs: 06/12/17 06:30 06/12/17 06:30 PT 11.3 SECONDS (9.4-12.5) 06/09/17 20:37 INR 0.99 (0.93-1.08) 06/09/17 20:37 APTT 26.7 Seconds (25.1-36.5) 06/09/17 20:37 Attending/Attestation - Attestation I have personally seen and examined this patient.: Yes I have fully participated in the care of the patient.: Yes I have reviewed all pertinent clinical information, including history, physical exam and plan: Yes Notes (Text): 06/12/17 17:12 attending note; Patient seen and examined with the resident. Patient is a 62 year old male with PMHx of COPD on 2L Home Oxygen, Pancreatitis , HIV,, Hep C, and Cataracts who presented complaining of worsening dyspnea. currently admitted with COPD exacerbation. Chest x-ray is negative for pneumonia. Started on empiric anti-biotics since the patient has significant sputum production. Continue oxygen, DuoNeb, IV Solu-Medrol. Monitor respiratory status closely. Anxiety; psychiatric evaluation appreciated. Started on low-dose Xanax. HIV; continue home medication. Needs follow-up with ID as outpatient. PT evaluation appreciated. Possible discharge home tomorrow. Case discussed with case management specialist for discharge planning.
[2017-06-12] MEDS: MethylPREDNISolone 40 mg Vial IVP SCH (21:57)
[2017-06-12] MEDS ORDERED: guaiFENesin DM 100 mg-10 mg/5 ml UD PO ONE (22:09)
[2017-06-13] MEDS: Albuterol-Ipratrop 3 mg / 0.5 (3 ml) UD IH SCH ×2 (03:00→08:02)
[2017-06-13] MEDS: Acetylcysteine 20% Inhal Soln (4ml) IH SCH ×3 (03:00→08:04)
[2017-06-13] MEDS: Arformoterol 15 mcg/2 ml Inh Sol IH SCH (08:01)
[2017-06-13] MEDS: Budesonide 0.5 mg/2 ml Inhal Susp UD IH SCH (08:02)
[2017-06-13] MEDS: Insulin Reg-HIGH-Coverage SC SCH ×2 (08:41→12:25)
[2017-06-13] MEDS: Atovaquone 750 mg/5 ml Susp UD PO SCH (09:18)
[2017-06-13] MEDS: MethylPREDNISolone 40 mg Vial IVP SCH (09:19)
[2017-06-13] MEDS: guaiFENesin 600 mg ER Tab PO SCH (09:19)
[2017-06-13] MEDS: Lactobacillus Acidophilus 500 MU Cap PO SCH (09:20)
[2017-06-13] MEDS: Vancomycin 1gm in NS 250ml 1 GM/250 ML BAG IVPB SCH (09:21)
[2017-06-13] MEDS: Insulin Detemir 100 units/ml Vial (Levemir) SC SCH (09:23)
[2017-06-13 09:36] VITALS: BP 112/80; PULSE 80
[2017-06-13] MEDS: Cefepime 1gm in NS 100ml 1 GM/100 ML BAG IVPB SCH (10:44)
--- NOTE | 2017-06-13 10:58 | CP.PCM.DIS ---
<Ant Han S - Last Filed: 06/13/17 12:38> Provider - Provider Date of Admission: 06/11/17 11:26 Attending physician: Dulce Rodriguez MD Primary care physician: Dr. Holman Consults: Psychiatry: Dr. Johnston Time Spent in preparation of Discharge (in minutes): 40 Diagnosis - Discharge Diagnosis (1) COPD exacerbation Status: Acute Priority: High (2) History of HIV infection Status: Chronic Priority: Medium (3) History of type 2 diabetes mellitus Status: Chronic Priority: Medium (4) History of hepatitis C Status: Chronic Priority: Low (5) History of hypertension Status: Chronic Priority: Medium Hospital Course - Lab Results Lab Results: Most Recent Lab Values WBC 9.9 10^3/ul (4.5-11.0) 06/12/17 06:30 RBC 3.68 10^6/uL (3.5-6.1) 06/12/17 06:30 Hgb 10.6 g/dL (14.0-18.0) L 06/12/17 06:30 Hct 33.8 % (42.0-52.0) L 06/12/17 06:30 MCV 91.8 fl (80.0-105.0) 06/12/17 06:30 MCH 28.8 pg (25.0-35.0) 06/12/17 06:30 MCHC 31.4 g/dl (31.0-37.0) 06/12/17 06:30 RDW 14.2 % (11.5-14.5) 06/12/17 06:30 Plt Count 299 10^3/uL (120.0-450.0) 06/12/17 06:30 MPV 9.7 fl (7.0-11.0) 06/12/17 06:30 Gran % 79.1 % (50.0-68.0) H 06/12/17 06:30 Lymph % (Auto) 14.0 % (22.0-35.0) L 06/12/17 06:30 [place] % (Auto) 6.9 % (1.0-6.0) H 06/12/17 06:30 Eos % (Auto) 0.0 % (1.5-5.0) L 06/12/17 06:30 Baso % (Auto) 0.0 % (0.0-3.0) 06/12/17 06:30 Gran # 7.82 (1.4-6.5) H 06/12/17 06:30 Lymph # (Auto) 1.4 (1.2-3.4) 06/12/17 06:30 [place] # (Auto) 0.7 (0.1-0.6) H 06/12/17 06:30 Eos # (Auto) 0.0 (0.0-0.7) 06/12/17 06:30 Baso # (Auto) 0.00 K/mm3 (0.0-2.0) 06/12/17 06:30 Neutrophils % (Manual) 87 % (50.0-70.0) H 06/10/17 06:30 Band Neutrophils % 4 % (0-2) H 06/10/17 06:30 Lymphocytes % (Manual) 7 % (22.0-35.0) L 06/10/17 06:30 Monocytes % (Manual) 2 % (1.0-6.0) 06/10/17 06:30 Platelet Evaluation Normal (NORMAL) 06/10/17 06:30 Anisocytosis (manual) Slight 06/10/17 06:30 PT 11.3 SECONDS (9.4-12.5) 06/09/17 20:37 INR 0.99 (0.93-1.08) 06/09/17 20:37 APTT 26.7 Seconds (25.1-36.5) 06/09/17 20:37 Sodium 143 mmol/L (132-148) 06/12/17 06:30 Potassium 3.4 mmol/L (3.6-5.0) L 06/12/17 06:30 Chloride 100 mmol/L (98-107) 06/12/17 06:30 Carbon Dioxide 32 mmol/L (21-33) 06/12/17 06:30 Anion Gap 14 (10-20) 06/12/17 06:30 BUN 32 mg/dL (7-21) H 06/12/17 06:30 Creatinine 1.4 mg/dl (0.8-1.5) 06/12/17 06:30 Est GFR ( Amer) > 60 06/12/17 06:30 Est GFR (Non-Af Amer) 51 06/12/17 06:30 POC Glucose (mg/dL) 170 mg/dL (65-110) H 06/12/17 21:36 Random Glucose 97 mg/dL (70-110) 06/12/17 06:30 Hemoglobin A1c 9.0 % (4.2-6.5) H 06/10/17 06:30 Calcium 10.2 mg/dL (8.4-10.5) 06/12/17 06:30 Total Bilirubin 0.3 mg/dL (0.2-1.3) 06/12/17 06:30 AST 22 U/L (17-59) 06/12/17 06:30 ALT 35 U/L (7-56) 06/12/17 06:30 Alkaline Phosphatase 59 U/L (38-126) 06/12/17 06:30 Lactate Dehydrogenase 815 U/L (333-699) H 06/09/17 20:37 Total Creatine Kinase 35 U/L (35-230) 06/09/17 20:37 Troponin I 0.01 ng/mL 06/09/17 20:37 NT-Pro-B Natriuret Pep 91.1 pg/mL (0-450) 06/09/17 20:37 Total Protein 6.9 g/dL (5.8-8.3) 06/12/17 06:30 Albumin 3.6 g/dL (3.0-4.8) 06/12/17 06:30 Globulin 3.2 gm/dL 06/12/17 06:30 Albumin/Globulin Ratio 1.1 (1.1-1.8) 06/12/17 06:30 Thyroxine (T4) 7.1 ug/dL (5.5-11.0) 06/10/17 11:00 TSH 3rd Generation 0.17 mIU/mL (0.46-4.68) L 06/10/17 11:00 Urine Color Yellow (YELLOW) 06/10/17 05:45 Urine Appearance Clear (CLEAR) 06/10/17 05:45 Urine pH 5.0 (4.7-8.0) 06/10/17 05:45 Ur Specific [place] 1.010 (1.005-1.035) 06/10/17 05:45 Urine Protein Negative mg/dL (<30 mg/dL) 06/10/17 05:45 Urine Glucose (UA) >=1000 mg/dL (NEGATIVE) 06/10/17 05:45 Urine Ketones Negative mg/dL (NEGATIVE) 06/10/17 05:45 Urine Blood Negative (NEGATIVE) 06/10/17 05:45 Urine Nitrate Negative (NEGATIVE) 06/10/17 05:45 Urine Bilirubin Negative (NEGATIVE) 06/10/17 05:45 Urine Urobilinogen 0.2 E.U./dL (<1 E.U./dL) 06/10/17 05:45 Ur Leukocyte Esterase Negative Nash/uL (NEGATIVE) 06/10/17 05:45 Urine Opiates Screen Positive (NEGATIVE) H 06/10/17 05:45 Urine Methadone Screen Negative (NEGATIVE) 06/10/17 05:45 Ur Barbiturates Screen Negative (NEGATIVE) 06/10/17 05:45 Ur Phencyclidine Scrn Negative (NEGATIVE) 06/10/17 05:45 Ur Amphetamines Screen Negative (NEGATIVE) 06/10/17 05:45 U Benzodiazepines Scrn Negative (NEGATIVE) 06/10/17 05:45 U Oth Cocaine Metabols Negative (NEGATIVE) 06/10/17 05:45 U Cannabinoids Screen Negative (NEGATIVE) 06/10/17 05:45 - Hospital Course Hospital Course: Initial History of Present Illness on 06/10/17: "Patient is a 62 year old male with a PMHx of COPD (on 2L Home O2), Pancreatitis , HIV, DM II, Hep C, and Cataracts disease who presents complaining of worsening SOB x 10 days. Patient cannot identify any factors that could have caused his SOB. Patient tried to relieve his symptoms with his DuoNeb without success. Patient states he initially went to [facility] for treatment. He stayed for 3 days because they would not give him any Solu-medrol because he stated that he had a reaction to prednisone. Patient states that before discharge from [facility] he received a low dose Solu-Medrol with slightly relieved his symptoms. He also states his symptoms have improved since getting IV Solu-Medrol in the ED." Hospital Course: Patient admitted for shortness of breath due to COPD Exacerbation. Patient improved with Solumedrol, Duoneb, Pulmicort, and Brovana. Patient had echocardiogram to see if his shortness of breath could be cardiac related, but this was ruled out with no evidence of heart failure seen in the study. Patient was ambulating with physical therapy and was not deemed a candidate for TCU. He is to be discharged home and follow up with his PMD Dr. Holman who is also his ID physician. He is to follow up for management of his HIV therapy with Dr. Holman. He is to follow up with astrochemist Dr. Floyd for management of his COPD. Patient has home oxygen. This is a summary of the hospital course. For more information, refer to the medical records. Discharge Exam - Head Exam Head Exam: ATRAUMATIC, NORMOCEPHALIC - Eye Exam Eye Exam: EOMI, Normal appearance - ENT Exam ENT Exam: Mucous Membranes Moist - Respiratory Exam Respiratory Exam: NORMAL BREATHING PATTERN. absent: Rales, Rhonchi, Wheezes Additional comments: Coarse breath sounds bilaterally - Cardiovascular Exam Cardiovascular Exam: REGULAR RHYTHM, +S1, +S2 - GI/Abdominal Exam GI & Abdominal Exam: Normal Bowel Sounds, Soft. absent: Distended, Guarding, Tenderness - Extremities Exam Extremities exam: pedal pulses present - Neurological Exam Neurological exam: Alert, CN II-XII Intact, Oriented x3 - Psychiatric Exam Psychiatric exam: Normal Affect, Normal Mood - Skin Skin Exam: Dry, Warm Discharge Plan - Discharge Medications Prescriptions: Albuterol HFA [Ventolin HFA 90 mcg/actuation (8 g)] 1 puff IH PRN PRN #1 inhaler PRN Reason: Shortness Of Breath ALPRAZolam [Xanax] 0.25 mg PO TID #8 tab Budesonide/Formoterol Fumarate [Symbicort 160-4.5 Mcg Inhaler] 1 aer IH BID #1 aer levoFLOXacin [Levaquin] 750 mg PO DAILY #5 tab Methylprednisolone [Medrol Dose Pack (21 tabs)] 4 mg PO DAILY #21 mg Montelukast [Singulair] 10 mg PO HS #30 tab - Follow Up Plan Condition: STABLE Disposition: HOME/ ROUTINE Instructions: Chronic Obstructive Pulmonary Disease (COPD), Including Emphysema Additional Instructions: 1. Please follow up with within 1 week. 2. Please follow up with Dr. Floyd for the care of your pulmonary conditions. 3. Please resume your home medications as they were prescribed. 4. Please take the Medrol dose pack and Levaquin antibiotic as prescribed. Referrals: Maxim Floyd MD [Non-Staff] - Maliha Holman MD [Medical Doctor] - <Dulce Rodriguez - Last Filed: 06/13/17 13:32> Provider - Provider Date of Admission: 06/11/17 11:26 Attending physician: Dulce Rodriguez MD Primary care physician: Ravi Lan MD Hospital Course - Lab Results Lab Results: Most Recent Lab Values WBC 9.9 10^3/ul (4.5-11.0) 06/12/17 06:30 RBC 3.68 10^6/uL (3.5-6.1) 06/12/17 06:30 Hgb 10.6 g/dL (14.0-18.0) L 06/12/17 06:30 Hct 33.8 % (42.0-52.0) L 06/12/17 06:30 MCV 91.8 fl (80.0-105.0) 06/12/17 06:30 MCH 28.8 pg (25.0-35.0) 06/12/17 06:30 MCHC 31.4 g/dl (31.0-37.0) 06/12/17 06:30 RDW 14.2 % (11.5-14.5) 06/12/17 06:30 Plt Count 299 10^3/uL (120.0-450.0) 06/12/17 06:30 MPV 9.7 fl (7.0-11.0) 06/12/17 06:30 Gran % 79.1 % (50.0-68.0) H 06/12/17 06:30 Lymph % (Auto) 14.0 % (22.0-35.0) L 06/12/17 06:30 [place] % (Auto) 6.9 % (1.0-6.0) H 06/12/17 06:30 Eos % (Auto) 0.0 % (1.5-5.0) L 06/12/17 06:30 Baso % (Auto) 0.0 % (0.0-3.0) 06/12/17 06:30 Gran # 7.82 (1.4-6.5) H 06/12/17 06:30 Lymph # (Auto) 1.4 (1.2-3.4) 06/12/17 06:30 [place] # (Auto) 0.7 (0.1-0.6) H 06/12/17 06:30 Eos # (Auto) 0.0 (0.0-0.7) 06/12/17 06:30 Baso # (Auto) 0.00 K/mm3 (0.0-2.0) 06/12/17 06:30 Neutrophils % (Manual) 87 % (50.0-70.0) H 06/10/17 06:30 Band Neutrophils % 4 % (0-2) H 06/10/17 06:30 Lymphocytes % (Manual) 7 % (22.0-35.0) L 06/10/17 06:30 Monocytes % (Manual) 2 % (1.0-6.0) 06/10/17 06:30 Platelet Evaluation Normal (NORMAL) 06/10/17 06:30 Anisocytosis (manual) Slight 06/10/17 06:30 PT 11.3 SECONDS (9.4-12.5) 06/09/17 20:37 INR 0.99 (0.93-1.08) 06/09/17 20:37 APTT 26.7 Seconds (25.1-36.5) 06/09/17 20:37 Sodium 143 mmol/L (132-148) 06/12/17 06:30 Potassium 3.4 mmol/L (3.6-5.0) L 06/12/17 06:30 Chloride 100 mmol/L (98-107) 06/12/17 06:30 Carbon Dioxide 32 mmol/L (21-33) 06/12/17 06:30 Anion Gap 14 (10-20) 06/12/17 06:30 BUN 32 mg/dL (7-21) H 06/12/17 06:30 Creatinine 1.4 mg/dl (0.8-1.5) 06/12/17 06:30 Est GFR ( Amer) > 60 06/12/17 06:30 Est GFR (Non-Af Amer) 51 06/12/17 06:30 POC Glucose (mg/dL) 330 mg/dL (65-110) H 06/13/17 11:12 Random Glucose 97 mg/dL (70-110) 06/12/17 06:30 Hemoglobin A1c 9.0 % (4.2-6.5) H 06/10/17 06:30 Calcium 10.2 mg/dL (8.4-10.5) 06/12/17 06:30 Total Bilirubin 0.3 mg/dL (0.2-1.3) 06/12/17 06:30 AST 22 U/L (17-59) 06/12/17 06:30 ALT 35 U/L (7-56) 06/12/17 06:30 Alkaline Phosphatase 59 U/L (38-126) 06/12/17 06:30 Lactate Dehydrogenase 815 U/L (333-699) H 06/09/17 20:37 Total Creatine Kinase 35 U/L (35-230) 06/09/17 20:37 Troponin I 0.01 ng/mL 06/09/17 20:37 NT-Pro-B Natriuret Pep 91.1 pg/mL (0-450) 06/09/17 20:37 Total Protein 6.9 g/dL (5.8-8.3) 06/12/17 06:30 Albumin 3.6 g/dL (3.0-4.8) 06/12/17 06:30 Globulin 3.2 gm/dL 06/12/17 06:30 Albumin/Globulin Ratio 1.1 (1.1-1.8) 06/12/17 06:30 Thyroxine (T4) 7.1 ug/dL (5.5-11.0) 06/10/17 11:00 TSH 3rd Generation 0.17 mIU/mL (0.46-4.68) L 06/10/17 11:00 Urine Color Yellow (YELLOW) 06/10/17 05:45 Urine Appearance Clear (CLEAR) 06/10/17 05:45 Urine pH 5.0 (4.7-8.0) 06/10/17 05:45 Ur Specific [place] 1.010 (1.005-1.035) 06/10/17 05:45 Urine Protein Negative mg/dL (<30 mg/dL) 06/10/17 05:45 Urine Glucose (UA) >=1000 mg/dL (NEGATIVE) 06/10/17 05:45 Urine Ketones Negative mg/dL (NEGATIVE) 06/10/17 05:45 Urine Blood Negative (NEGATIVE) 06/10/17 05:45 Urine Nitrate Negative (NEGATIVE) 06/10/17 05:45 Urine Bilirubin Negative (NEGATIVE) 06/10/17 05:45 Urine Urobilinogen 0.2 E.U./dL (<1 E.U./dL) 06/10/17 05:45 Ur Leukocyte Esterase Negative [place]/uL (NEGATIVE) 06/10/17 05:45 Urine Opiates Screen Positive (NEGATIVE) H 06/10/17 05:45 Urine Methadone Screen Negative (NEGATIVE) 06/10/17 05:45 Ur Barbiturates Screen Negative (NEGATIVE) 06/10/17 05:45 Ur Phencyclidine Scrn Negative (NEGATIVE) 06/10/17 05:45 Ur Amphetamines Screen Negative (NEGATIVE) 06/10/17 05:45 U Benzodiazepines Scrn Negative (NEGATIVE) 06/10/17 05:45 U Oth Cocaine Metabols Negative (NEGATIVE) 06/10/17 05:45 U Cannabinoids Screen Negative (NEGATIVE) 06/10/17 05:45 Attending/Attestation - Attestation I have personally seen and examined this patient.: Yes I have fully participated in the care of the patient.: Yes I have reviewed all pertinent clinical information, including history, physical exam and plan: Yes Notes (Text): 06/13/17 13:31 attending note; Patient seen and examined with the resident. Patient is a 62 year old male with PMHx of COPD on 2L Home Oxygen, Pancreatitis , HIV,, Hep C, and Cataracts who presented complaining of worsening dyspnea. currently admitted with COPD exacerbation. Chest x-ray is negative for pneumonia. Started on empiric anti-biotics since the patient has significant sputum production. Treated with oxygen, DuoNeb, IV Solu-Medrol. currently stable respiratory status. Anxiety; psychiatric evaluation appreciated. Started on low-dose Xanax. HIV; continue home medication. Needs follow-up with ID as outpatient. PT evaluation appreciated. discharge home today. Case discussed with telephonic case manager for discharge planning.
[2017-06-13 11:22] VITALS: RESP 18; TEMP 98; O2SAT 97
== END 2017-06-13 13:26 | disposition home or self-care (01) | DRG 192 ==
LOC: ED 19:41 → ERH 06-10 00:49 → 3RSO 06-10 03:33 → OBSVTOIN 06-11 11:26
PROVIDERS: ADMIT Hospitalist; ATTEND Internal Medicine
PROC: 3E0F7GC Introduction of Other Therapeutic Substance into Respiratory Tract, Via Natural or Artificial Opening (ICD-10-PCS; principal; 2017-06-10)
DX: J44.1 Chronic obstructive pulmonary disease with (acute) exacerbation (principal); Z99.81 Dependence on supplemental oxygen; E11.9 Type 2 diabetes mellitus without complications; Z21 Asymptomatic human immunodeficiency virus [HIV] infection status; B19.20 Unspecified viral hepatitis C without hepatic coma; I10 Essential (primary) hypertension; F41.9 Anxiety disorder, unspecified; F11.90 Opioid use, unspecified, uncomplicated; Z98.41 Cataract extraction status, right eye; Z87.891 Personal history of nicotine dependence

== ENCOUNTER 2017-08-27 19:39 | Inpatient (IN) | payer MEDICARE, MEDICAID ==
[2017-08-27 19:41] VITALS: BMI 25.8
[2017-08-27] MEDS ORDERED: Albuterol-Ipratrop 3 mg / 0.5 (3 ml) UD IH STA ×2 (20:03→21:39)
[2017-08-27] MEDS ORDERED: Albuterol-Ipratrop 3 mg / 0.5 (3 ml) UD ONE (20:04)
--- NOTE | 2017-08-27 20:09 | ED PDOC ---
Arrival/HPI - General Chief Complaint: Cough, Cold, Congestion Time Seen by Provider: 08/27/17 19:41 Historian: Patient - History of Present Illness Narrative History of Present Illness (Text): 08/27/17 20:05 A 62 year old male, whose past medical history includes diabetes, COPD and HIV, brought into the emergency department by EMS complaining of progressively worsening shortness of breath over the past few days. Patient states he feels his "emphysema is acting up." Patient denies any fever, chills, nausea, vomiting , abdominal pain, back pain, chest pain or any other complaints. Time/Duration: Other (few days) Symptom Course: Worsening Context: Home Past Medical History - Provider Review Nursing Documentation Reviewed: Yes - Infectious Disease Hx of Infectious Diseases: None - Tetanus Immunization Tetanus Immunization: Unknown - Cardiac Hx Cardiac Disorders: Yes Hx Hypertension: Yes - Pulmonary Hx Chronic Obstructive Pulmonary Disease (COPD): Yes - Neurological Hx Neurological Disorder: No - HEENT Hx HEENT Disorder: No - Renal Hx Renal Disorder: No - Endocrine/Metabolic Hx Diabetes Mellitus Type 2: Yes - Hematological/Oncological Hx Blood Disorders: Yes - Integumentary Hx Dermatological Disorder: No - Musculoskeletal/Rheumatological Hx Arthritis: Yes - Gastrointestinal Hx Gastrointestinal Disorders: Yes Hx Pancreatitis: Yes - Genitourinary/Gynecological Hx Genitourinary Disorders: No - Psychiatric Hx Psychophysiologic Disorder: Yes Hx Anxiety: Yes Hx Substance Use: No (denies) - Surgical History Hx Orthopedic Surgery: Yes (RT KNEE) Other/Comment: comestic surgery to face post getting kicked in face by horse - Anesthesia Hx Anesthesia: Yes Hx Anesthesia Reactions: No Hx Malignant Hyperthermia: No - Suicidal Assessment Feels Threatened In Home Enviroment: No Family/Social History - Physician Review Nursing Documentation Reviewed: Yes Family/Social History: No Known Family HX Smoking Status: Former Smoker Hx Alcohol Use: Yes (quit in 1987) Hx Substance Use: No (denies) Substance used: heroine Allergies/Home Meds Allergies/Adverse Reactions: Allergies No Known Allergies Allergy (Verified 10/05/16 16:23) Home Medications: Home Meds Medication Instructions Recorded Confirmed Insulin Aspart, Recombinant 30 unit SQ BID 08/16/16 08/27/17 [Novolog] Valsartan [Diovan] 1 tab PO DAILY 08/16/16 08/27/17 Gabapentin [Neurontin] 300 mg PO TID 06/10/17 08/27/17 Isentress PO BID 06/10/17 Review of Systems - Physician Review All systems were reviewed & negative as marked: Yes - Review of Systems Constitutional: absent: Fevers, Night Sweats Respiratory: SOB Cardiovascular: absent: Chest Pain Gastrointestinal: absent: Abdominal Pain, Nausea, Vomiting Musculoskeletal: absent: Back Pain Physical Exam Vital Signs Reviewed: Yes Vital Signs Temp Pulse Resp BP Pulse Ox 08/27/17 20:01 74/53 L 08/27/17 19:48 18 95 08/27/17 19:47 98.9 F 129 H 18 87 L Temperature: Afebrile Blood Pressure: Hypotensive Pulse: Tachycardic Respiratory Rate: Normal Appearance: Positive for: Well-Appearing, Non-Toxic, Comfortable Pain Distress: None Mental Status: Positive for: Alert and Oriented X 3 - Systems Exam Head: Present: Atraumatic, Normocephalic Pupils: Present: PERRL Extroacular Muscles: Present: EOMI Conjunctiva: Present: Normal Ears: Present: Normal Mouth: Present: Moist Mucous Membranes Pharnyx: Present: Normal Neck: Present: Normal Range of Motion Respiratory/Chest: Present: Decreased Breath Sounds (bilaterally). No: Respiratory Distress, Accessory Muscle Use Cardiovascular: Present: Normal S1, S2, Tachycardic. No: Murmurs Abdomen: Present: Normal Bowel Sounds. No: Tenderness, Distention, Peritoneal Signs Back: Present: Normal Inspection Upper Extremity: Present: Normal Inspection, NORMAL PULSES. No: Cyanosis, Edema Lower Extremity: Present: Edema (chronic), NORMAL PULSES. No: CALF TENDERNESS, Lanny's Sign Neurological: Present: GCS=15, CN II-XII Intact, Speech Normal Skin: Present: Warm, Dry, Normal Color. No: Rashes Psychiatric: Present: Alert, Oriented x 3, Normal Insight, Normal Concentration Medical Decision Making ED Course and Treatment: 08/27/17 20:05 Impression: A 62 year old male with shortness of breath. Denies chest pain. Plan: -- Chest xray -- EKG -- Labs -- Duoneb and Solumedrol -- Reassess and disposition Progress Notes: EKG shows sinus tachycardia at [address]/T changes. Interpreted by me. 08/27/17 21:50: Chest X- Ray read and interpreted by me shows no acute process. 08/27/17 21:50: Case discussed in detail with medical records tech and Dr. Ford who accepts patient to his service. - Lab Interpretations Lab Results: 08/27/17 20:28 08/27/17 20:28 Lab Results 08/27/17 20:28: WBC 6.1 D, RBC 3.56, Hgb 10.1 L, Hct 33.2 L, MCV 93.3, MCH 28.4 , MCHC 30.4 L, RDW 15.1 H, Plt Count 221, MPV 9.6 08/27/17 20:28: Sodium 146, Potassium 4.8, Chloride 103, Carbon Dioxide 29, Anion Gap 19, BUN 29 H, Creatinine 3.1 H, Est GFR ( Amer) 25, Est GFR ( Non-Af Amer) 20, Random Glucose 230 H, Calcium 8.4, Total Bilirubin 0.3, AST 42 , ALT 42, Alkaline Phosphatase 69, Lactate Dehydrogenase 873 H, Total Creatine Kinase 605 H, CK-MB (CK-2) Pending, CK-MB (CK-2) % Pending, Troponin I Pending, NT-Pro-B Natriuret Pep 87.1, Total Protein 6.2, Albumin 3.4, Globulin 2.8, Albumin/Globulin Ratio 1.2 08/27/17 20:28: PT 11.2, INR 0.98, APTT 26.4 I have reviewed the lab results: Yes - RAD Interpretation Radiology Orders: 08/27/17 20:02 CHEST PORTABLE [RAD] Stat - Medication Orders Current Medication Orders: Sodium Chloride (Sodium Chloride 0.9%) 500 mls @ 500 mls/hr IV .Q1H STA Stop: 08/27/17 22:37 Last Admin: 08/27/17 21:46 Dose: 500 mls/hr eMAR Start Stop Document 08/27/17 21:46 CNR (Rec: 08/27/17 21:46 CNR [id number]) Intravenous Solution Start Date 08/27/17 Start Time 21:46 Discontinued Medications Albuterol/Ipratropium (Duoneb 3 Mg/0.5 Mg (3 Ml) Ud) 3 ml IH ONCE STA Stop: 08/27/17 20:04 Last Admin: 05/10/18 20:08 Dose: 3 ml Albuterol/Ipratropium (Duoneb 3 Mg/0.5 Mg (3 Ml) Ud) 3 ml IH ONCE STA Stop: 08/27/17 21:40 Last Admin: 08/27/17 21:46 Dose: 3 ml Methylprednisolone (Solu-Medrol) 125 mg IVP ONCE ONE Stop: 08/27/17 20:04 Last Admin: 08/27/17 20:09 Dose: 125 mg IVP Administration Document 08/27/17 20:09 CNR (Rec: 08/27/17 20:09 CNR [id number]) Charges for Administration # of IVP Administrations 1 - Scribe Statement The provider has reviewed the documentation as recorded by the Jassonibjuliana Timmons Provider Scribe Attestation: All medical record entries made by the Scribe were at my direction and personally dictated by me. I have reviewed the chart and agree that the record accurately reflects my personal performance of the history, physical exam, medical decision making, and the department course for this patient. I have also personally directed, reviewed, and agree with the discharge instructions and disposition. Disposition/Present on Arrival - Present on Arrival Any Indicators Present on Arrival: No History of DVT/PE: No History of Uncontrolled Diabetes: No Urinary Catheter: No History of Decub. Ulcer: No History Surgical Site Infection Following: None - Disposition Have Diagnosis and Disposition been Completed?: Yes Diagnosis: COPD exacerbation Disposition: HOSPITALIZED Disposition Time: 21:53 Condition: STABLE Referrals: Ravi Lan MD [Primary Care Provider] - Follow up with primary Forms: [facility] ([place])
[2017-08-27 20:33] LABS: HEMOGLOBIN 10.1 g/dL (14.0-18.0); MEAN CELL VOLUME 93.3 fl (80.0-105.0); MEAN CORPUSCULAR HEMOGLOBIN 28.4 pg (25.0-35.0); MEAN CORPUSCULAR HGB CONC 30.4 g/dl (31.0-37.0); MEAN PLATELET VOLUME 9.6 fl (7.0-11.0); RBC 3.56 10^6/uL (3.5-6.1); RED CELL DISTRIBUTION WIDTH 15.1 % (11.5-14.5); WHITE BLOOD COUNT 6.1 10^3/ul (4.5-11.0)
[2017-08-27 20:42] LABS: INR 0.98 (0.93-1.08); PARTIAL THROMBOPLASTIN TIME 26.4 Seconds (25.1-36.5); PROTHROMBIN TIME 11.2 SECONDS (9.4-12.5)
[2017-08-27 20:51] LABS: ALB/GLOB RATIO 1.2 (1.1-1.8); BLOOD UREA NITROGEN 29 mg/dL (7-21); GFR AFRICAN-AMERICAN 25; GFR NON-AFRICAN AMERICAN 20
[2017-08-27 20:53] LABS: B-TYPE NATRIURETIC PEPTIDE 87.1 pg/mL (0-450)
[2017-08-27 21:31] LABS: ALBUMIN 3.4 g/dL (3.0-4.8); ALT/SGPT 42 U/L (7-56); AST/SGOT 42 U/L (17-59); CALCIUM 8.4 mg/dL (8.4-10.5)
[2017-08-27] MEDS ORDERED: Sodium Chloride 0.9% 500 ML IV STA (21:38)
[2017-08-27 21:54] LABS: CK-MB 3.6 ng/mL (0.0-3.6); TROPONIN I < 0.01 ng/mL
[2017-08-27] MEDS ORDERED: Albuterol-Ipratrop 3 mg / 0.5 (3 ml) UD IH PRN (23:28)
[2017-08-27] MEDS: Albuterol-Ipratrop 3 mg / 0.5 (3 ml) UD IH SCH (23:42)
[2017-08-28 02:36] LABS: URINE BILIRUBIN NEGATIVE (NEGATIVE); URINE BLOOD MODERATE (NEGATIVE); URINE GLUCOSE (UA) >=1000 mg/dL (NEGATIVE); URINE LEUKOCYTE ESTERASE NEGATIVE Leu/uL (NEGATIVE); URINE PROTEIN 30 mg/dL (<30 mg/dL); URINE UROBILINOGEN 0.2 E.U./dL (<1 E.U./dL)
[2017-08-28 02:42] LABS: URINE APPEARANCE CLEAR (CLEAR); URINE COLOR YELLOW (YELLOW)
[2017-08-28 03:09] LABS: URINE EPITHELIAL CELLS 0 - 2 /hpf (0-5)
--- NOTE | 2017-08-28 03:20 | CP.PCM.HP ---
History of Present Illness - History of Present Illness History of Present Illness: CC: SOB HPI: 62 year old male with a past medical history of COPD (on 2L Home O2), Pancreatitis, HIV, DM2, Hep C, and Cataracts disease who presents complaining of worsening SOB. Patient indicates he has had a productive green sputum cough for the past week or so. Patient indicates he feels chest congeston and need to cough up mucous in his chest. He denies hemoptysis, fever, chills, nausea, vomiting, abdominal pain, focal weakness, numbness or tingling. Patient was recently seen in [facility] for chest congestion requiring admittance. Patient takes HAART therapy and his most recent labs a couple months ago were viral load undetected and CD4 count was ~600 plus. Patient reports headache, shortness of breath, and chest soreness from continuous coughing. PMH: COPD (on 2L Home O2), Pancreatitis, HIV, DM II, Hep C, and Cataracts PSH: Right Cataract Surgery SOCHX: 1PPD for 51 years. Quit about 12 years ago. Admits to occasional Heroin Use Hos: [facility] for last month 2/2 chronic congestion FMH: Non contributory ALL: Prednisone (He states his throat closes up) Meds: MAR reviewed PMD: Dr. Holman on [facility] Present on Admission - Present on Admission Any Indicators Present on Admission: No Review of Systems - Review of Systems All systems: reviewed and no additional remarkable complaints except (as mentioned in HPI) Past Patient History - Infectious Disease Hx of Infectious Diseases: None - Tetanus Immunizations Tetanus Immunization: Unknown - Past Medical History & Family History Past Medical History?: Yes - Past Social History Smoking Status: Former Smoker - CARDIAC Hx Cardiac Disorders: Yes Hx Hypertension: Yes - PULMONARY Hx Respiratory Disorders: Yes Hx Chronic Obstructive Pulmonary Disease (COPD): Yes - NEUROLOGICAL Hx Neurological Disorder: No - HEENT Hx HEENT Problems: No - RENAL Hx Chronic Kidney Disease: No - ENDOCRINE/METABOLIC Hx Endocrine Disorders: Yes Hx Diabetes Mellitus Type 2: Yes - HEMATOLOGICAL/ONCOLOGICAL Hx Blood Disorders: Yes Hx Hepatitis A: Yes Hx Hepatitis B: Yes Hx Hepatitis C: Yes Hx Human Immunodeficiency Virus (HIV): Yes - INTEGUMENTARY Hx Dermatological Problems: No - MUSCULOSKELETAL/RHEUMATOLOGICAL Hx Musculoskeletal Disorders: No Hx Falls: No - GASTROINTESTINAL Hx Gastrointestinal Disorders: No - GENITOURINARY/GYNECOLOGICAL Hx Genitourinary Disorders: No - PSYCHIATRIC Hx Psychophysiologic Disorder: Yes Hx Anxiety: Yes Hx Substance Use: Yes - SURGICAL HISTORY Hx Surgeries: No - ANESTHESIA Hx Anesthesia: Yes Hx Anesthesia Reactions: No Hx Malignant Hyperthermia: No Meds Allergies/Adverse Reactions: Allergies Allergy/AdvReac Type Severity Reaction Status Date / Time No Known Allergies Allergy Verified 10/05/16 16:23 Physical Exam - Constitutional Appears: Non-toxic, Unkempt Additional comments: breathing with 3L NC, able to hold conversation without dyspnea, appears older than stated age - Head Exam Head Exam: ATRAUMATIC, NORMAL INSPECTION, NORMOCEPHALIC - Eye Exam Eye Exam: EOMI, PERRL - ENT Exam ENT Exam: Mucous Membranes Dry - Respiratory Exam Respiratory Exam: Decreased Breath Sounds, Rhonchi, Wheezes - Cardiovascular Exam Cardiovascular Exam: REGULAR RHYTHM, +S1, +S2 - GI/Abdominal Exam GI & Abdominal Exam: Normal Bowel Sounds, Soft, Tenderness (mid epigastric, hx of pancreatitis ). absent: Firm, Guarding, Hernia - Extremities Exam Extremities exam: Positive for: normal capillary refill, pedal edema. Negative for: calf tenderness, tenderness Additional comments: 1+ v 2+ pedal edema mid tibia - Neurological Exam Neurological exam: Alert, CN II-XII Intact, Oriented x3 Additional comments: motor and sensory grossly intact, able to follow simple commands, move all four extremities past midline - Psychiatric Exam Psychiatric exam: Normal Affect, Normal Mood - Skin Skin Exam: Dry, Warm Results - Vital Signs Recent Vital Signs: Last Vital Signs Temp 98.6 F 08/28/17 00:08 Pulse 97 H 08/28/17 00:08 Resp 18 08/28/17 00:08 BP 103/64 08/28/17 00:08 Pulse Ox 95 08/27/17 23:50 - Labs Result Diagrams: 08/27/17 20:28 08/27/17 20:28 Labs: Laboratory Results - last 24 hr 08/28/17 02:11 Urine Color Yellow Urine Appearance Clear Urine pH 6.0 Ur Specific [place] 1.020 Urine Protein 30 H Urine Glucose (UA) >=1000 Urine Ketones Negative Urine Blood Moderate H Urine Nitrate Negative Urine Bilirubin Negative Urine Urobilinogen 0.2 Ur Leukocyte Esterase Negative Assessment & Plan - Assessment and Plan (Free Text) Assessment: 61yo M with a PMHx of HIV on HAART therapy, nasal and IV heroin abuse, DM, Hepatitis C, COPD with O2 dependance, HTN, who presents to the ED with complaints of shortness of breath Plan: COPD Exacerbation; acute on chronic -CXR shows stigmata of COPD, without any focal consolidations -Afebrile, no wbc -Start Duonebs Q4sch and Q2prn -Start solumedrol 60mg IV Q12 -Start levaquin IV -keep O2 sat above 88% [place] - Elevated Cr/BUN - Likely secondary to hypovolemia - Urine electrolytes, Sodium random, creatine, random, - avoid nephrotoxic drugs, consider renal consult if unimproved Hx of HIV; Chronic -Last viral load measured 10/06/16; low but detected -Last CD4 count measured 10/07/11; -Continue home meds DM2 - ISS medium - ACHS - CCD HTN - HTN borderline hypotensive - hold home meds GI ppx: Protonix DVT ppx: Heparin Case and plan discussed with attending - Date & Time Date: 08/28/17 Time: 03:23
[2017-08-28] MEDS: Albuterol-Ipratrop 3 mg / 0.5 (3 ml) UD IH SCH ×6 (04:36→23:44)
[2017-08-28 07:04] LABS: GRAN # 2.99 (1.4-6.5); GRAN % 85.4 % (50.0-68.0); HEMOGLOBIN 9.8 g/dL (14.0-18.0); LYMPH # 0.5 (1.2-3.4); LYMPH % 14.3 % (22.0-35.0); MEAN CELL VOLUME 93.4 fl (80.0-105.0); MEAN CORPUSCULAR HEMOGLOBIN 28.2 pg (25.0-35.0); MEAN CORPUSCULAR HGB CONC 30.2 g/dl (31.0-37.0); MEAN PLATELET VOLUME 9.6 fl (7.0-11.0); MONO % 0.3 % (1.0-6.0); RBC 3.47 10^6/uL (3.5-6.1); RED CELL DISTRIBUTION WIDTH 15.2 % (11.5-14.5); WHITE BLOOD COUNT 3.5 10^3/ul (4.5-11.0)
[2017-08-28 07:15] LABS: INR 1.03 (0.93-1.08); PARTIAL THROMBOPLASTIN TIME 26.8 Seconds (25.1-36.5); PROTHROMBIN TIME 11.8 SECONDS (9.4-12.5)
[2017-08-28] MEDS: Sodium Chloride 0.9% 1,000 ML IV SCH ×3 (08:18→22:06)
[2017-08-28 08:31] LABS: ALB/GLOB RATIO 1.2 (1.1-1.8); ALBUMIN 3.8 g/dL (3.0-4.8); CALCIUM 8.6 mg/dL (8.4-10.5)
[2017-08-28] MEDS: Insulin Lispro (humaLOG) MEDIUM Coverage SC SCH ×4 (08:38→22:11)
--- NOTE | 2017-08-28 08:53 | RAD ---
HISTORY: fever COMPARISON: 06/09/2017 FINDINGS: LUNGS: No active pulmonary disease. PLEURA: No significant pleural effusion identified, no pneumothorax apparent. CARDIOVASCULAR: Normal. OSSEOUS STRUCTURES: No significant abnormalities. VISUALIZED UPPER ABDOMEN: Normal. OTHER FINDINGS: None. IMPRESSION: No active disease.
[2017-08-28] MEDS ORDERED: Sod Polystyrene Sulf 15 gm/60 ml Susp PO ONE (09:51)
[2017-08-28] MEDS ORDERED: VALSARTAN PO SCH (10:00)
[2017-08-28] MEDS ORDERED: levoFLOXacin 750 mg in D5W 750 MG/150 ML BAG IVPB SCH (10:00)
--- NOTE | 2017-08-28 10:12 | CARD ---
APPROVED REPORT EKG Measurement Heart [id number] <Conclusion> Sinus tachycardia Otherwise normal ECG No change
[2017-08-28] MEDS: Insulin Lispro 1 UNITS/0.01 ML SC SCH ×2 (10:17→17:29)
[2017-08-28] MEDS: Pantoprazole 40 mg EC Tab PO SCH (10:18)
[2017-08-28] MEDS: guaiFENesin-DM 600-30 mg ER Tab PO SCH (17:39)
[2017-08-28 17:58] VITALS: RESP 18
[2017-08-28 19:03] LABS: BENZODIAZEPINES, UR NEGATIVE (NEGATIVE); PHENCYCLIDINE, UR NEGATIVE (NEGATIVE)
[2017-08-28 19:08] LABS: BARBITURATES, UR NEGATIVE (NEGATIVE); OPIATES, UR POSITIVE (NEGATIVE)
[2017-08-28] MEDS: RALTEGRAVIR 600 MG PO SCH (19:16)
[2017-08-28] MEDS ORDERED: Insulin Regular 1 UNITS/0.01 ML ML SC PRN (20:33)
[2017-08-28] MEDS ORDERED: Insulin Regular 1 UNITS/0.01 ML ML IV SCH (22:00)
--- NOTE | 2017-08-29 01:28 | CON ---
DATE: 08/28/2017 PULMONARY CONSULTATION REFERRING PHYSICIAN: Dr. George. REASON FOR CONSULTATION: Chronic obstructive lung disease, cough, and shortness of breath. HISTORY OF PRESENT ILLNESS: This is a 62-year-old gentleman with past medical history significant for chronic obstructive lung disease, HIV positive, pancreatitis, diabetes, hepatitis C, comes in because of worsening cough and shortness of breath. Denying any hemoptysis. No hematemesis, no hematuria, no diarrhea. Has pleuritic type pain. According to the patient, his viral load has been undetected and CD4 count is over 400. PAST MEDICAL HISTORY: As per history of present illness. ALLERGIES: TO PENICILLIN. FAMILY HISTORY: No significant cardiopulmonary disease reported. SOCIAL HISTORY: He is an ex-smoker. Admits to have heroin use. Denies any alcohol use. MEDICATIONS: He is on DuoNeb every 2 hours p.r.n. and every 4 hours [id number], heparin 5000 units subcutaneously every 8 hours, Isentress 600 mg twice a day, Levaquin 750 mg every 48 hours, Mucinex DM 600 mg per 30 one tablet twice a day, gabapentin 300 mg three times a day, Protonix 40 mg daily, Singulair 10 mg daily, IV fluid normal saline 100 mL per hour, Solu-Medrol 60 mg every 12 hours, Xanax 0.25 mg three times a day. He is on Ziagen 300 mg twice a day. REVIEW OF SYSTEMS: No headache. No rhinitis. Cough, short of breath. No sputum production. Muscular type chest pain. No nausea. No vomiting. No diarrhea. No leg pain or leg swelling. PHYSICAL EXAMINATION: GENERAL: Lying in the bed, mild distress secondary to cough and shortness of breath. VITAL SIGNS: Temperature is 98, heart rate is 102, respiratory rate is 20, blood pressure 120/75, pulse ox 96% on 3 L nasal cannula. HEENT: Moist mucous membrane. Crowded airway. Mallampati score is 4. NECK: Supple. No JVD. LUNGS: Have a scattered rhonchi and wheezing. HEART: S1 and S2. ABDOMEN: Soft, nontender. No organomegaly. EXTREMITIES: No edema. NEUROLOGIC: Awake, alert, follows simple command. LABORATORY DATA: Shows hemoglobin 9.8, hematocrit 32.4, WBC 3.5, platelet is 222. INR 1.03, PTT 27. Sodium 141, potassium 5.5, chloride 99, bicarbonate 30, BUN 29, creatinine 2.5, glucose 394, calcium 8.6. Total bilirubin 0.2, AST 38, ALT 46, alkaline phosphatase is 84. LDH 873. Creatine kinase , albumin is 3.8. Urinalysis shows wbc's 1-3, rbc's 1-3. Chest x-ray done in ER shows no active pulmonary disease. Venous Doppler of lower extremity done, report is pending. IMPRESSION AND PLAN: Chronic obstructive lung disease, history of substance abuse, human immunodeficiency virus positive, diabetes, hypertension, history of pancreatitis, multiple joint disease. Pulmonary point of view, I agree with present management. Continue Solu-Medrol. Continue antibiotics, inhaled bronchodilator, gastric prophylaxis, deep venous thrombosis prophylaxis. May give insulin with steroids, will write order for that. Recommended PFT upon discharge as an outpatient. Infectious disease followup. Thank you and we will follow with you. Ventura Browning MD
[2017-08-29 03:34] VITALS: TEMP 97.5
[2017-08-29] MEDS: Albuterol-Ipratrop 3 mg / 0.5 (3 ml) UD IH SCH ×4 (04:13→11:32)
[2017-08-29] MEDS: Sodium Chloride 0.9% 1,000 ML IV SCH ×2 (06:23→10:00)
[2017-08-29 07:02] LABS: GRAN # 6.63 (1.4-6.5); GRAN % 90.3 % (50.0-68.0); HEMOGLOBIN 9.2 g/dL (14.0-18.0); LYMPH # 0.5 (1.2-3.4); LYMPH % 7.3 % (22.0-35.0); MEAN CELL VOLUME 91.4 fl (80.0-105.0); MEAN CORPUSCULAR HEMOGLOBIN 28.2 pg (25.0-35.0); MEAN CORPUSCULAR HGB CONC 30.9 g/dl (31.0-37.0); MONO # 0.2 (0.1-0.6); MONO % 2.4 % (1.0-6.0); PLATELET COUNT 218 10^3/uL (120.0-450.0); RBC 3.26 10^6/uL (3.5-6.1); RED CELL DISTRIBUTION WIDTH 14.7 % (11.5-14.5); WHITE BLOOD COUNT 7.4 10^3/ul (4.5-11.0)
[2017-08-29 07:25] LABS: ALB/GLOB RATIO 1.2 (1.1-1.8); ALBUMIN 3.4 g/dL (3.0-4.8); CALCIUM 8.5 mg/dL (8.4-10.5)
[2017-08-29] MEDS: Insulin Lispro (humaLOG) MEDIUM Coverage SC SCH ×2 (08:07→11:47)
[2017-08-29 08:10] LABS: LYMPHOCYTE 10 % (22.0-35.0); MONOCYTE 2 % (1.0-6.0); NEUTROPHIL 88 % (50.0-70.0)
[2017-08-29 08:11] LABS: PLATELET ESTIMATE NORMAL (NORMAL)
[2017-08-29 08:12] VITALS: O2SAT 95
[2017-08-29] MEDS: guaiFENesin-DM 600-30 mg ER Tab PO SCH (09:51)
[2017-08-29] MEDS: RALTEGRAVIR 600 MG PO SCH (09:52)
[2017-08-29] MEDS: Pantoprazole 40 mg EC Tab PO SCH (09:52)
[2017-08-29 10:02] VITALS: BP 126/77; PULSE 102
--- NOTE | 2017-08-29 11:07 | CP.PCM.PN ---
Subjective - Date & Time of Evaluation Date of Evaluation: 08/29/17 Time of Evaluation: 11:05 - Subjective Subjective: Halima Parrish, PGY1, Progress Note for Dr George: Patient seen and examined at bedside. No acute events overnight. Pt reports sob , "being winded" after walking around. Denies fever, chills, cough, nausea, vomiting, abdominal pain, leg swelling. Objective - Vital Signs/Intake and Output Vital Signs (last 24 hours): Temp Pulse Resp BP Pulse Ox 97.5 F L 102 H 18 126/77 95 08/29/17 06:00 08/29/17 10:02 08/29/17 06:00 08/29/17 10:02 08/29/17 06:00 Intake and Output: 08/29/17 08/29/17 06:59 18:59 Intake Total 1800 Output Total 1300 Balance 500 - Medications Medications: Current Medications Abacavir Sulfate (Ziagen) 300 mg PO BID AMAYA PRN Reason: Protocol Last Admin: 08/29/17 09:57 Dose: Not Given Albuterol/Ipratropium (Duoneb 3 Mg/0.5 Mg (3 Ml) Ud) 3 ml IH [id number] AMAYA Last Admin: 08/29/17 08:47 Dose: 3 ml Albuterol/Ipratropium (Duoneb 3 Mg/0.5 Mg (3 Ml) Ud) 3 ml IH Q2H PRN PRN Reason: Shortness of Breath Alprazolam (Xanax) 0.25 mg PO TID AMAYA PRN Reason: Protocol Stop: 09/04/17 10:01 Last Admin: 08/29/17 09:51 Dose: 0.25 mg Gabapentin (Neurontin) 300 mg PO TID AMAYA PRN Reason: Protocol Last Admin: 08/29/17 09:51 Dose: 300 mg Guaifenesin/Dextromethorphan (Mucinex-Dm 600-30 Mg) 1 tab PO BID [facility] Last Admin: 08/29/17 09:51 Dose: 1 tab Heparin Sodium (Porcine) (Heparin) 5,000 units SC Q8 AMAYA PRN Reason: Protocol Last Admin: 08/29/17 06:29 Dose: Not Given Levofloxacin/Dextrose (Levaquin 750mg) 750 mg in 150 mls @ 100 mls/hr IVPB Q48H AMAYA PRN Reason: Protocol Last Admin: 08/28/17 10:20 Dose: 100 mls/hr Sodium Chloride (Sodium Chloride 0.9%) 1,000 mls @ 100 mls/hr IV .Q10H [facility] Last Admin: 08/29/17 10:00 Dose: Not Given Insulin Human Lispro (Humalog Med) 0 units SC ACHS [facility] PRN Reason: Protocol Last Admin: 08/29/17 08:07 Dose: 10 units Insulin Human Lispro (Humalog) 30 units SC BID [facility] Last Admin: 08/28/17 17:29 Dose: Not Given Methylprednisolone (Solu-Medrol) 60 mg IVP Q12 [facility] Last Admin: 08/29/17 09:50 Dose: 60 mg Montelukast Sodium (Singulair) 10 mg PO HS [facility] Last Admin: 08/28/17 22:06 Dose: 10 mg Non-Formulary Medication (Isentress) 600 mg PO BID [facility] Last Admin: 08/29/17 09:52 Dose: Not Given Pantoprazole Sodium (Protonix Ec Tab) 40 mg PO DAILY [facility] Last Admin: 08/29/17 09:52 Dose: 40 mg - Labs Labs: 08/29/17 06:30 08/29/17 06:30 PT 11.8 SECONDS (9.4-12.5) 08/28/17 06:30 INR 1.03 (0.93-1.08) 08/28/17 06:30 APTT 26.8 Seconds (25.1-36.5) 08/28/17 06:30
--- NOTE | 2017-08-29 11:43 | CP.PCM.DIS ---
<Halima Parrish - Last Filed: 08/29/17 19:21> Provider - Provider Date of Admission: 08/28/17 10:37 Attending physician: Tamara George MD Primary care physician: Ravi Lan MD Consults: Leydi Browning Time Spent in preparation of Discharge (in minutes): 35 Diagnosis - Discharge Diagnosis (1) COPD exacerbation Status: Acute (2) Acute kidney injury Status: Acute Hospital Course - Lab Results Lab Results: Most Recent Lab Values WBC 7.4 10^3/ul (4.5-11.0) D 08/29/17 06:30 RBC 3.26 10^6/uL (3.5-6.1) L 08/29/17 06:30 Hgb 9.2 g/dL (14.0-18.0) L 08/29/17 06:30 Hct 29.8 % (42.0-52.0) L 08/29/17 06:30 MCV 91.4 fl (80.0-105.0) 08/29/17 06:30 MCH 28.2 pg (25.0-35.0) 08/29/17 06:30 MCHC 30.9 g/dl (31.0-37.0) L 08/29/17 06:30 RDW 14.7 % (11.5-14.5) H 08/29/17 06:30 Plt Count 218 10^3/uL (120.0-450.0) 08/29/17 06:30 MPV 9.0 fl (7.0-11.0) 08/29/17 06:30 Gran % 90.3 % (50.0-68.0) H 08/29/17 06:30 Lymph % (Auto) 7.3 % (22.0-35.0) L 08/29/17 06:30 [place] % (Auto) 2.4 % (1.0-6.0) 08/29/17 06:30 Eos % (Auto) 0.0 % (1.5-5.0) L 08/29/17 06:30 Baso % (Auto) 0.0 % (0.0-3.0) 08/29/17 06:30 Gran # 6.63 (1.4-6.5) H 08/29/17 06:30 Lymph # (Auto) 0.5 (1.2-3.4) L 08/29/17 06:30 [place] # (Auto) 0.2 (0.1-0.6) 08/29/17 06:30 Eos # (Auto) 0.0 (0.0-0.7) 08/29/17 06:30 Baso # (Auto) 0.00 K/mm3 (0.0-2.0) 08/29/17 06:30 Neutrophils % (Manual) 88 % (50.0-70.0) H 08/29/17 06:30 Lymphocytes % (Manual) 10 % (22.0-35.0) L 08/29/17 06:30 Monocytes % (Manual) 2 % (1.0-6.0) 08/29/17 06:30 Platelet Evaluation Normal (NORMAL) 08/29/17 06:30 PT 11.8 SECONDS (9.4-12.5) 08/28/17 06:30 INR 1.03 (0.93-1.08) 08/28/17 06:30 APTT 26.8 Seconds (25.1-36.5) 08/28/17 06:30 Sodium 140 mmol/L (132-148) 08/29/17 06:30 Potassium 4.3 mmol/L (3.6-5.0) 08/29/17 06:30 Chloride 103 mmol/L (98-107) 08/29/17 06:30 Carbon Dioxide 26 mmol/L (21-33) 08/29/17 06:30 Anion Gap 16 (10-20) 08/29/17 06:30 BUN 30 mg/dL (7-21) H 08/29/17 06:30 Creatinine 1.9 mg/dl (0.8-1.5) H 08/29/17 06:30 Est GFR ( Amer) 44 08/29/17 06:30 Est GFR (Non-Af Amer) 36 08/29/17 06:30 POC Glucose (mg/dL) 327 mg/dL (65-110) H 08/28/17 22:05 Random Glucose 472 mg/dL (70-110) H* D 08/29/17 06:30 Calcium 8.5 mg/dL (8.4-10.5) 08/29/17 06:30 Total Bilirubin 0.2 mg/dL (0.2-1.3) 08/29/17 06:30 AST 33 U/L (17-59) 08/29/17 06:30 ALT 34 U/L (7-56) 08/29/17 06:30 Alkaline Phosphatase 68 U/L (38-126) 08/29/17 06:30 Lactate Dehydrogenase 873 U/L (333-699) H 08/27/17 20:28 Total Creatine Kinase 605 U/L (35-230) H 08/27/17 20:28 CK-MB (CK-2) 3.6 ng/mL (0.0-3.6) 08/27/17 20: CK-MB (CK-2) % Cancelled 08/27/17 20: Troponin I < 0.01 ng/mL 08/27/17 20: NT-Pro-B Natriuret Pep 87.1 pg/mL (0-450) 08/27/17 20:28 Total Protein 6.3 g/dL (5.8-8.3) 08/29/17 06:30 Albumin 3.4 g/dL (3.0-4.8) 08/29/17 06:30 Globulin 2.9 gm/dL 08/29/17 06:30 Albumin/Globulin Ratio 1.2 (1.1-1.8) 08/29/17 06:30 Urine Color Yellow (YELLOW) 08/28/17 02:11 Urine Appearance Clear (CLEAR) 08/28/17 02:11 Urine pH 6.0 (4.7-8.0) 08/28/17 02:11 Ur Specific [place] 1.020 (1.005-1.035) 08/28/17 02:11 Urine Protein 30 mg/dL (<30 mg/dL) H 08/28/17 02:11 Urine Glucose (UA) >=1000 mg/dL (NEGATIVE) 08/28/17 02:11 Urine Ketones Negative mg/dL (NEGATIVE) 08/28/17 02:11 Urine Blood Moderate (NEGATIVE) H 08/28/17 02:11 Urine Nitrate Negative (NEGATIVE) 08/28/17 02:11 Urine Bilirubin Negative (NEGATIVE) 08/28/17 02:11 Urine Urobilinogen 0.2 E.U./dL (<1 E.U./dL) 08/28/17 02:11 Ur Leukocyte Esterase Negative [place]/uL (NEGATIVE) 08/28/17 02:11 Urine RBC 1 - 3 /hpf (0-2) 08/28/17 02:11 Urine WBC 1 - 3 /hpf (0-6) 08/28/17 02:11 Ur Epithelial Cells 0 - 2 /hpf (0-5) 08/28/17 02:11 Urine Other Uyeast 08/28/17 02:11 Urine Opiates Screen Positive (NEGATIVE) H 08/28/17 18:32 Urine Methadone Screen Negative (NEGATIVE) 08/28/17 18:32 Ur Barbiturates Screen Negative (NEGATIVE) 08/28/17 18:32 Ur Phencyclidine Scrn Negative (NEGATIVE) 05 18:32 Ur Amphetamines Screen Negative (NEGATIVE) 08/28/17 18:32 U Benzodiazepines Scrn Negative (NEGATIVE) 08/28/17 18:32 U Oth Cocaine Metabols Negative (NEGATIVE) 08/28/17 18:32 U Cannabinoids Screen Negative (NEGATIVE) 08/28/17 18:32 - Hospital Course Hospital Course: 62 year old male with a past medical history of COPD (on 2L Home O2), Pancreatitis, HIV, DM2, Hep C, and Cataracts disease, presents complaining of worsening SOB, admitted for COPD exacerbation, found to have KELTON. Pt started on IV solumedrol, duonebs. Gentle hydration was started with imporving Creatinine. Pt states that he wants to leave AMA. Pt explained the risks of leaving AMA, and benefits of treatment. Pt given prednisone taper dose and Levaquin. Case seen and discussed with Dr George. Halima Parrish, PGy1 Discharge Exam - Head Exam Head Exam: ATRAUMATIC, NORMAL INSPECTION, NORMOCEPHALIC - Eye Exam Eye Exam: EOMI, PERRL. absent: Conjunctival injection, Nystagmus, Scleral icterus Pupil Exam: NORMAL ACCOMODATION, PERRL - ENT Exam ENT Exam: Mucous Membranes Moist - Neck Exam Neck exam: Full Rom - Respiratory Exam Respiratory Exam: Wheezes (mild wheezing). absent: Respiratory Distress - Cardiovascular Exam Cardiovascular Exam: RRR, +S1, +S2. absent: Systolic Murmur - GI/Abdominal Exam GI & Abdominal Exam: Normal Bowel Sounds, Soft. absent: Distended, Firm, Tenderness - Extremities Exam Extremities exam: normal inspection - Back Exam Back exam: NORMAL INSPECTION - Neurological Exam Neurological exam: Alert, Oriented x3 - Psychiatric Exam Psychiatric exam: Normal Affect, Normal Mood - Skin Skin Exam: Dry, Normal Color, Warm Discharge Plan - Discharge Medications Prescriptions: levoFLOXacin [Levaquin] 750 mg PO DAILY 5 Days tab Prednisone [Deltasone] 20 mg PO DAILY #2 tablet Prednisone [Cuauhtemoc] 10 mg PO DAILY #2 tablet. Prednisone [Cuauhtemoc] 5 mg PO DAILY #2 tablet. Prednisone 40 mg PO DAILY #2 tablet Prednisone 30 mg PO DAILY #2 tab - Follow Up Plan Condition: GUARDED Disposition: AGAINST MEDICAL ADVICE Instructions: Chronic Obstructive Pulmonary Disease (COPD), Including Emphysema , Hyperglycemia, Adult, Acute Kidney Failure, COPD (Chronic Obstructive Pulmonary Disease) (DC), COPD (Chronic Obstructive Pulmonary Disease) (GEN) Additional Instructions: - Take prednisone taper: 40 mg daily for 2 days, 30 mg daily for 2 days, 20 mg daily for 2 days, 10 mg daily for 2 days, 5 mg for 2 days. - Take Levaquin for 5 days - Follow up at [facility] in 1 week. - return to er for any concerns. Referrals: Ravi Lan MD [Primary Care Provider] - <Tamara George - Last Filed: 08/30/17 07:43> Provider - Provider Date of Admission: 08/28/17 10:37 Attending physician: Tamara George MD Primary care physician: Ravi Lan MD Hospital Course - Lab Results Lab Results: Micro Results 08/29/17 00:30 Sputum Gram Stain - Final Most Recent Lab Values WBC 7.4 10^3/ul (4.5-11.0) D 08/29/17 06:30 RBC 3.26 10^6/uL (3.5-6.1) L 08/29/17 06:30 Hgb 9.2 g/dL (14.0-18.0) L 08/29/17 06:30 Hct 29.8 % (42.0-52.0) L 08/29/17 06:30 MCV 91.4 fl (80.0-105.0) 08/29/17 06:30 MCH 28.2 pg (25.0-35.0) 08/29/17 06:30 MCHC 30.9 g/dl (31.0-37.0) L 08/29/17 06:30 RDW 14.7 % (11.5-14.5) H 08/29/17 06:30 Plt Count 218 10^3/uL (120.0-450.0) 08/29/17 06:30 MPV 9.0 fl (7.0-11.0) 08/29/17 06:30 Gran % 90.3 % (50.0-68.0) H 08/29/17 06:30 Lymph % (Auto) 7.3 % (22.0-35.0) L 08/29/17 06:30 [place] % (Auto) 2.4 % (1.0-6.0) 08/29/17 06:30 Eos % (Auto) 0.0 % (1.5-5.0) L 08/29/17 06:30 Baso % (Auto) 0.0 % (0.0-3.0) 08/29/17 06:30 Gran # 6.63 (1.4-6.5) H 08/29/17 06:30 Lymph # (Auto) 0.5 (1.2-3.4) L 08/29/17 06:30 [place] # (Auto) 0.2 (0.1-0.6) 08/29/17 06:30 Eos # (Auto) 0.0 (0.0-0.7) 08/29/17 06:30 Baso # (Auto) 0.00 K/mm3 (0.0-2.0) 08/29/17 06:30 Neutrophils % (Manual) 88 % (50.0-70.0) H 08/29/17 06:30 Lymphocytes % (Manual) 10 % (22.0-35.0) L 08/29/17 06:30 Monocytes % (Manual) 2 % (1.0-6.0) 08/29/17 06:30 Platelet Evaluation Normal (NORMAL) 08/29/17 06:30 PT 11.8 SECONDS (9.4-12.5) 08/28/17 06:30 INR 1.03 (0.93-1.08) 08/28/17 06:30 APTT 26.8 Seconds (25.1-36.5) 08/28/17 06:30 Sodium 140 mmol/L (132-148) 08/29/17 06:30 Potassium 4.3 mmol/L (3.6-5.0) 08/29/17 06:30 Chloride 103 mmol/L (98-107) 08/29/17 06:30 Carbon Dioxide 26 mmol/L (21-33) 08/29/17 06:30 Anion Gap 16 (10-20) 08/29/17 06:30 BUN 30 mg/dL (7-21) H 08/29/17 06:30 Creatinine 1.9 mg/dl (0.8-1.5) H 08/29/17 06:30 Est GFR ( Amer) 44 08/29/17 06:30 Est GFR (Non-Af Amer) 36 08/29/17 06:30 POC Glucose (mg/dL) 352 mg/dL (65-110) H 08/29/17 11:41 Random Glucose 472 mg/dL (70-110) H* D 08/29/17 06:30 Calcium 8.5 mg/dL (8.4-10.5) 08/29/17 06:30 Total Bilirubin 0.2 mg/dL (0.2-1.3) 08/29/17 06:30 AST 33 U/L (17-59) 08/29/17 06:30 ALT 34 U/L (7-56) 08/29/17 06:30 Alkaline Phosphatase 68 U/L (38-126) 08/29/17 06:30 Lactate Dehydrogenase 873 U/L (333-699) H 08/27/17 20:28 Total Creatine Kinase 605 U/L (35-230) H 08/27/17 20:28 CK-MB (CK-2) 3.6 ng/mL (0.0-3.6) 08/27/17 20: CK-MB (CK-2) % Cancelled 08/27/17 20:28 Troponin I < 0.01 ng/mL 08/27/17 20:28 NT-Pro-B Natriuret Pep 87.1 pg/mL (0-450) 08/27/17 20: Total Protein 6.3 g/dL (5.8-8.3) 08/29/17 06:30 Albumin 3.4 g/dL (3.0-4.8) 08/29/17 06:30 Globulin 2.9 gm/dL 08/29/17 06:30 Albumin/Globulin Ratio 1.2 (1.1-1.8) 08/29/17 06:30 Urine Color Yellow (YELLOW) 08/28/17 02:11 Urine Appearance Clear (CLEAR) 08/28/17 02:11 Urine pH 6.0 (4.7-8.0) 08/28/17 02:11 Ur Specific [place] 1.020 (1.005-1.035) 08/28/17 02:11 Urine Protein 30 mg/dL (<30 mg/dL) H 08/28/17 02:11 Urine Glucose (UA) >=1000 mg/dL (NEGATIVE) 08/28/17 02:11 Urine Ketones Negative mg/dL (NEGATIVE) 08/28/17 02:11 Urine Blood Moderate (NEGATIVE) H 08/28/17 02:11 Urine Nitrate Negative (NEGATIVE) 08/28/17 02:11 Urine Bilirubin Negative (NEGATIVE) 08/28/17 02:11 Urine Urobilinogen 0.2 E.U./dL (<1 E.U./dL) 08/28/17 02:11 Ur Leukocyte Esterase Negative [place]/uL (NEGATIVE) 08/28/17 02:11 Urine RBC 1 - 3 /hpf (0-2) 08/28/17 02:11 Urine WBC 1 - 3 /hpf (0-6) 08/28/17 02:11 Ur Epithelial Cells 0 - 2 /hpf (0-5) 08/28/17 02:11 Urine Other Uyeast 08/28/17 02:11 Urine Opiates Screen Positive (NEGATIVE) H 08/28/17 18:32 Urine Methadone Screen Negative (NEGATIVE) 08/28/17 18:32 Ur Barbiturates Screen Negative (NEGATIVE) 08/28/17 18:32 Ur Phencyclidine Scrn Negative (NEGATIVE) 08/28/17 18:32 Ur Amphetamines Screen Negative (NEGATIVE) 08/28/17 18:32 U Benzodiazepines Scrn Negative (NEGATIVE) 08/28/17 18:32 U Oth Cocaine Metabols Negative (NEGATIVE) 05/11/18 18:32 U Cannabinoids Screen Negative (NEGATIVE) 08/28/17 18:32 Attending/Attestation - Attestation I have personally seen and examined this patient.: Yes I have fully participated in the care of the patient.: Yes I have reviewed all pertinent clinical information, including history, physical exam and plan: Yes Notes (Text): 08/29/17 62 year old male with past medical history of COPD on home O2, HIV, and diabetes who presented with COPD exacerbation and KELTON. He was started on iv steroids, antibiotics and duonebs. He was seen by pulmonary. He was on IV fluids for KELTON which slowly began to improve. Today he stated he wanted to sign out AMA. He was explained the risks but still signed out AMA. Given script for tapering steroids and antibiotics. Tamara George MD Hospitalist.
[2017-08-29] MEDS: Insulin Lispro 1 UNITS/0.01 ML SC SCH (11:47)
== END 2017-08-29 13:41 | disposition left against medical advice (07) | DRG 191 ==
LOC: ED 19:39 → ERH 21:51 → 2RSO 23:57 → OBSVTOIN 08-28 10:37
PROVIDERS: ADMIT Internal Medicine; ATTEND Internal Medicine
PROC: 3E0F7GC Introduction of Other Therapeutic Substance into Respiratory Tract, Via Natural or Artificial Opening (ICD-10-PCS; principal; 2017-08-28)
DX: J44.1 Chronic obstructive pulmonary disease with (acute) exacerbation (principal); N17.9 Acute kidney failure, unspecified; E11.9 Type 2 diabetes mellitus without complications; Z21 Asymptomatic human immunodeficiency virus [HIV] infection status; B19.20 Unspecified viral hepatitis C without hepatic coma; I10 Essential (primary) hypertension; F11.90 Opioid use, unspecified, uncomplicated; Z99.81 Dependence on supplemental oxygen; Z87.891 Personal history of nicotine dependence

== ENCOUNTER 2017-10-19 13:20 | Emergency (ER) | payer MEDICARE, MEDICAID ==
[2017-10-19 13:21] VITALS: BMI 25.8
[2017-10-19 13:44] VITALS: TEMP 98.6
--- NOTE | 2017-10-19 14:32 | ED PDOC ---
Arrival/HPI - General Chief Complaint: Shortness Of Breath Time Seen by Provider: 10/19/17 14:02 Historian: Patient - History of Present Illness Narrative History of Present Illness (Text): 10/19/17 14:05 62 year old male, with past medical history of diabetes, HIV and COPD, presents to the Emergency department complaining of chronic cough prior to arrival. Patient states earlier today his AC stopped working and opening his windows didnot help with the heat. Due to thermal discomfort, patient called 911 and was brought to [facility], where he was medically cleared and discharged home. However , due to the mentioned issue at home, patient did not want to return home and thus called EMS again to bring him to [facility] department. Patient now presents to the Emergency department requesting gabapentin for his left arm cramps and a place to stay under AC. Patient informs chronic cough but denies any shortness of breath. Patient denies any fever, chills, nausea, vomiting, diarrhea, abdominal pain, chest pain, or any other complaints. Time/Duration: 4-6 hours Symptom Onset: Gradual Symptom Course: Unchanged Activities at Onset: Light Context: Home Past Medical History - Provider Review Nursing Documentation Reviewed: Yes - Infectious Disease Hx of Infectious Diseases: None - Tetanus Immunization Tetanus Immunization: Unknown - Cardiac Hx Cardiac Disorders: Yes Hx Hypertension: Yes - Pulmonary Hx Respiratory Disorders: Yes Hx Chronic Obstructive Pulmonary Disease (COPD): Yes - Neurological Hx Neurological Disorder: No - HEENT Hx HEENT Disorder: No - Renal Hx Renal Disorder: No - Endocrine/Metabolic Hx Endocrine Disorders: Yes Hx Diabetes Mellitus Type 2: Yes - Hematological/Oncological Hx Blood Disorders: Yes Hx Hepatitis A: Yes Hx Hepatitis B: Yes Hx Hepatitis C: Yes - Integumentary Hx Dermatological Disorder: No - Musculoskeletal/Rheumatological Hx Musculoskeletal Disorders: No Hx Falls: No - Gastrointestinal Hx Gastrointestinal Disorders: No - Genitourinary/Gynecological Hx Genitourinary Disorders: No - Psychiatric Hx Psychophysiologic Disorder: Yes Hx Anxiety: Yes Hx Substance Use: Yes - Surgical History Hx Orthopedic Surgery: Yes (RT KNEE) Other/Comment: comestic surgery to face post getting kicked in face by horse - Anesthesia Hx Anesthesia: Yes Hx Anesthesia Reactions: No Hx Malignant Hyperthermia: No - Suicidal Assessment Feels Threatened In Home Enviroment: No Family/Social History - Physician Review Nursing Documentation Reviewed: Yes Family/Social History: No Known Family HX Smoking Status: Former Smoker Hx Alcohol Use: No Hx Substance Use: Yes Substance used: heroine Allergies/Home Meds Allergies/Adverse Reactions: Allergies No Known Allergies Allergy (Verified 10/05/16 16:23) Home Medications: Home Meds Medication Instructions Recorded Confirmed Valsartan [Diovan] 1 tab PO DAILY 08/16/16 08/27/17 Gabapentin [Neurontin] 300 mg PO TID 06/10/17 08/27/17 Isentress 600 mg PO BID 06/10/17 08/28/17 Review of Systems - Physician Review All systems were reviewed & negative as marked: Yes - Review of Systems Constitutional: Normal. absent: Fevers Eyes: Normal ENT: Normal Respiratory: Cough. absent: SOB Cardiovascular: Normal. absent: Chest Pain Gastrointestinal: Normal. absent: Abdominal Pain, Diarrhea, Nausea Genitourinary Male: Normal Musculoskeletal: Other (left arm cramps) Skin: Normal Neurological: Normal Endocrine: Normal Hemo/Lymphatic: Normal Psychiatric: Normal Physical Exam Vital Signs Reviewed: Yes Vital Signs Temp Pulse Resp BP Pulse Ox 10/19/17 16:45 84 18 116/58 L 99 10/19/17 16:35 84 18 116/58 L 99 10/19/17 14:45 92 H 18 118/59 L 100 10/19/17 13:38 22 10/19/17 13:21 98.6 F 112 H 18 122/56 L 98 Temperature: Afebrile Blood Pressure: Hypotensive Pulse: Tachycardic Respiratory Rate: Normal Appearance: Positive for: Well-Appearing, Non-Toxic, Comfortable Pain Distress: None Mental Status: Positive for: Alert and Oriented X 3 - Systems Exam Head: Present: Atraumatic, Normocephalic Pupils: Present: PERRL Extroacular Muscles: Present: EOMI Conjunctiva: Present: Normal Mouth: Present: Moist Mucous Membranes Neck: Present: Normal Range of Motion Respiratory/Chest: Present: Clear to Auscultation, Good Air Exchange. No: Respiratory Distress, Accessory Muscle Use Cardiovascular: Present: Regular Rate and Rhythm, Normal S1, S2. No: Murmurs Abdomen: No: Tenderness, Distention, Peritoneal Signs Back: Present: Normal Inspection Upper Extremity: Present: Normal Inspection. No: Cyanosis, Edema Lower Extremity: Present: Normal Inspection. No: Edema Neurological: Present: GCS=15, CN II-XII Intact, Speech Normal Skin: Present: Warm, Dry, Normal Color, Other (bleeding from left arm secondary to IV access removal). No: Rashes Psychiatric: Present: Alert, Oriented x 3, Normal Insight, Normal Concentration Medical Decision Making ED Course and Treatment: 10/19/17 13;41 Impression: 62 year old male presents to the Emergency department for chronic cough. Plan: -- Labs -- Albuterol -- Gabapentin -- Prednisone -- Reassess and disposition Prior Visits: Notes and results from previous visits were reviewed. Progress Notes: 10/19/17 17:00 Upon reassessment, patient states improvement to symptoms and presents no new complaints. Discussed with patient's sister, who is aware and will pickle sorter patient from the Emergency department. Patient will be discharged home with follow up instructions. - Lab Interpretations Lab Results: 10/19/17 14:30 10/19/17 14:30 Lab Results 10/19/17 14:30: Sodium 138, Potassium 4.5, Chloride 99, Carbon Dioxide 26, Anion Gap 18, BUN 25 H, Creatinine 1.1, Est GFR ( Amer) > 60, Est GFR ( Non-Af Amer) > 60, Random Glucose 231 H, Calcium 8.9, Total Bilirubin 0.4, AST 20, ALT 29, Alkaline Phosphatase 68, Total Protein 6.8, Albumin 4.0, Globulin 2.8, Albumin/Globulin Ratio 1.4 10/19/17 14:30: WBC 5.8 D, RBC 3.46 L, Hgb 9.6 L, Hct 31.0 L, MCV 89.6, MCH 27.7, MCHC 31.0, RDW 14.8 H, Plt Count 205, MPV 9.5, Gran % 95.8 H, Lymph % ( Auto) 3.5 L, [place] % (Auto) 0.7 L, Eos % (Auto) 0.0 L, Baso % (Auto) 0.0, Gran # 5.55, Lymph # (Auto) 0.2 L, [place] # (Auto) 0.0 L, Eos # (Auto) 0.0, Baso # (Auto ) 0.00, Neutrophils % (Manual) 97 H, Lymphocytes % (Manual) 3 L, Monocytes % ( Manual) TEST NOT PERFORMED, Platelet Evaluation Normal - Medication Orders Current Medication Orders: Discontinued Medications Albuterol/Ipratropium (Duoneb 3 Mg/0.5 Mg (3 Ml) Ud) 3 ml IH Q15M AMAYA Stop: 10/19/17 14:46 Last Admin: 10/19/17 14:40 Dose: 3 ml Gabapentin (Neurontin) 300 mg PO STAT AMAYA PRN Reason: Protocol Last Admin: 10/19/17 14:39 Dose: 300 mg Prednisone (Prednisone Tab) 20 mg PO STAT STA Stop: 10/19/17 14:06 Last Admin: 10/19/17 14:39 Dose: 20 mg - Scribe Statement The provider has reviewed the documentation as recorded by the Scribe Junie Hazel. All medical record entries made by the Scribe were at my direction and personally dictated by me. I have reviewed the chart and agree that the record accurately reflects my personal performance of the history, physical exam, medical decision making, and the department course for this patient. I have also personally directed, reviewed, and agree with the discharge instructions and disposition. Disposition/Present on Arrival - Present on Arrival Any Indicators Present on Arrival: No History of DVT/PE: No History of Uncontrolled Diabetes: No Urinary Catheter: No History of Decub. Ulcer: No History Surgical Site Infection Following: None - Disposition Have Diagnosis and Disposition been Completed?: Yes Diagnosis: COPD (chronic obstructive pulmonary disease) Disposition: HOME/ ROUTINE Disposition Time: 17:00 Condition: GOOD Discharge Instructions (ExitCare): Exacerbation of COPD Referrals: [facility] at [facility] [Outside] - Follow up with primary [facility] at [facility] [Outside] - Follow up with primary [facility] at [place] [Outside] - Follow up with primary Forms: [email or web address] ([place])
[2017-10-19] MEDS: Albuterol-Ipratrop 3 mg / 0.5 (3 ml) UD IH SCH ×2 (14:39→14:40)
[2017-10-19 14:45] VITALS: RESP 18
[2017-10-19 14:48] LABS: GRAN # 5.55 (1.4-6.5); GRAN % 95.8 % (50.0-68.0); HEMOGLOBIN 9.6 g/dL (14.0-18.0); LYMPH # 0.2 (1.2-3.4); LYMPH % 3.5 % (22.0-35.0); MEAN CELL VOLUME 89.6 fl (80.0-105.0); MEAN CORPUSCULAR HEMOGLOBIN 27.7 pg (25.0-35.0); MEAN PLATELET VOLUME 9.5 fl (7.0-11.0); MONO % 0.7 % (1.0-6.0); PLATELET COUNT 205 10^3/uL (120.0-450.0); RBC 3.46 10^6/uL (3.5-6.1); RED CELL DISTRIBUTION WIDTH 14.8 % (11.5-14.5); WHITE BLOOD COUNT 5.8 10^3/ul (4.5-11.0)
[2017-10-19 14:56] LABS: ALB/GLOB RATIO 1.4 (1.1-1.8); ALT/SGPT 29 U/L (7-56); AST/SGOT 20 U/L (17-59); BLOOD UREA NITROGEN 25 mg/dL (7-21); CALCIUM 8.9 mg/dL (8.4-10.5); GFR AFRICAN-AMERICAN > 60; GFR NON-AFRICAN AMERICAN > 60
[2017-10-19 15:16] LABS: LYMPHOCYTE 3 % (22.0-35.0); NEUTROPHIL 97 % (50.0-70.0); PLATELET ESTIMATE NORMAL (NORMAL)
[2017-10-19 16:35] VITALS: BP 116/58; PULSE 84; O2SAT 99
--- NOTE | 2017-10-20 09:38 | CARD ---
APPROVED REPORT EKG Measurement Heart [id number] <Conclusion> Sinus tachycardia ST elevation, probably due to early repolarization No change
== END 2017-10-19 16:45 | disposition home or self-care (01) ==
LOC: ED 13:20
DX: J44.9 Chronic obstructive pulmonary disease, unspecified (principal); Z87.891 Personal history of nicotine dependence

== ENCOUNTER 2017-10-25 04:44 | Inpatient (IN) | payer MEDICARE, MEDICAID ==
[2017-10-25 04:49] VITALS: BMI 26.6
[2017-10-25] MEDS: Albuterol-Ipratrop 3 mg / 0.5 (3 ml) UD IH SCH ×7 (05:15→23:53)
--- NOTE | 2017-10-25 05:22 | ED PDOC ---
Arrival/HPI - General Historian: Patient - History of Present Illness Time/Duration: < week Symptom Course: Worsening Activities at Onset: Rest Context: Home - General Chief Complaint: Shortness Of Breath Time Seen by Provider: 10/25/17 05:02 - History of Present Illness Narrative History of Present Illness (Text): 10/25/17 05:19 This is a 62 year old male with PMH of COPD on 2L home oxygen, diabetes, HIV, and Hep C presenting to the ER for SOB. Patient received treatment for COPD exacerbation recently in ED. Symptoms started 2 days ago and have worsened despite use of nebulizer. Patient admits to SOB, wheezing, and cough. Patient denies CP, abdominal pain, headaches, nausea, vomiting, and chills. (Kyung Mendez) Past Medical History - Provider Review Nursing Documentation Reviewed: Yes - Infectious Disease Hx of Infectious Diseases: None - Tetanus Immunization Tetanus Immunization: Unknown - Cardiac Hx Cardiac Disorders: Yes Hx Hypertension: Yes - Pulmonary Hx Respiratory Disorders: Yes Hx Chronic Obstructive Pulmonary Disease (COPD): Yes - Neurological Hx Neurological Disorder: No - HEENT Hx HEENT Disorder: No - Renal Hx Renal Disorder: No - Endocrine/Metabolic Hx Endocrine Disorders: Yes Hx Diabetes Mellitus Type 2: Yes - Hematological/Oncological Hx Blood Disorders: Yes Hx Hepatitis A: Yes Hx Hepatitis B: Yes Hx Hepatitis C: Yes - Integumentary Hx Dermatological Disorder: No - Musculoskeletal/Rheumatological Hx Musculoskeletal Disorders: No Hx Falls: No - Gastrointestinal Hx Gastrointestinal Disorders: No - Genitourinary/Gynecological Hx Genitourinary Disorders: No - Psychiatric Hx Psychophysiologic Disorder: Yes Hx Anxiety: Yes Hx Substance Use: Yes - Surgical History Hx Orthopedic Surgery: Yes (RT KNEE) Other/Comment: comestic surgery to face post getting kicked in face by horse - Anesthesia Hx Anesthesia: Yes Hx Anesthesia Reactions: No Hx Malignant Hyperthermia: No - Suicidal Assessment Feels Threatened In Home Enviroment: No Family/Social History - Physician Review Nursing Documentation Reviewed: Yes Family/Social History: Unknown Family HX Smoking Status: Former Smoker Hx Alcohol Use: No Hx Substance Use: Yes Substance used: heroine Allergies/Home Meds Allergies/Adverse Reactions: Allergies No Known Allergies Allergy (Verified 10/25/17 04:45) Home Medications: Home Meds Medication Instructions Recorded Confirmed Valsartan [Diovan] 1 tab PO DAILY 08/16/16 10/25/17 Gabapentin [Neurontin] 300 mg PO TID 06/10/17 10/25/17 Raltegravir Potassium [Isentress 600 mg PO DAILY 10/25/17 10/25/17 Hd] Review of Systems - Physician Review All systems were reviewed & negative as marked: Yes - Review of Systems Constitutional: Normal Eyes: Normal ENT: Normal Respiratory: SOB, Cough Cardiovascular: Normal. absent: Chest Pain, Palpitations Gastrointestinal: Normal. absent: Abdominal Pain, Vomiting Genitourinary Male: Normal Musculoskeletal: Normal Skin: Normal Neurological: Normal Endocrine: Normal Physical Exam Vital Signs Reviewed: Yes Temperature: Afebrile Blood Pressure: Normal Pulse: Regular Respiratory Rate: Normal Appearance: Positive for: Well-Appearing, Non-Toxic, Comfortable Pain Distress: None Mental Status: Positive for: Alert and Oriented X 3 - Systems Exam Head: Present: Atraumatic, Normocephalic Pupils: Present: PERRL Extroacular Muscles: Present: EOMI Conjunctiva: Present: Normal Mouth: Present: Moist Mucous Membranes Neck: Present: Normal Range of Motion Respiratory/Chest: Present: Wheezes. No: Respiratory Distress, Accessory Muscle Use Cardiovascular: Present: Regular Rate and Rhythm, Normal S1, S2. No: Murmurs Abdomen: No: Tenderness, Distention, Peritoneal Signs Back: Present: Normal Inspection Upper Extremity: Present: Normal Inspection. No: Cyanosis, Edema Lower Extremity: Present: Normal Inspection. No: Edema Neurological: Present: Speech Normal, Motor Func Grossly Intact, Normal Sensory Function Skin: Present: Warm, Dry, Normal Color. No: Rashes Psychiatric: Present: Alert, Oriented x 3, Normal Insight, Normal Concentration Vital Signs Temp Pulse Resp BP Pulse Ox 10/25/17 06:11 86 18 114/72 100 10/25/17 05:00 22 95 10/25/17 04:58 99.0 F 101 H 20 125/99 H 97 Medical Decision Making ED Course and Treatment: Impression: Pt seen and evaluated with medical practice administrator. Pt, whose past medical history includes COPD, diabetes, HIV, and Hepatitis C, presented for shortness of breath , wheezing, and cough for 2 days. Aware and agree with HPI, clinical findings, plan, and management. Plan: -- EKG -- Chest X-ray -- Labs, troponin, blood cultures -- Duoneb -- Solu-medrol -- Reassess and disposition (Jac Mariscal) 10/25/17 05:22 Impression: This is a 62 year old male with PMH of COPD presenting with SOB for 2 days. Plan: -CXray -CBC, CMP -Solumedrol 125 IV -Duonebs -Blood cultures Progress: 10/25/17 06:19 Patient feeling better after duonebs and solumedrol. CXRAY shows hyperinflation EKG shows rate of 111bpm, RI 132ms, QRS 88ms, and sinus tachycardia. 10/25/17 06:24 Glucose is 486 (Kyung Mendez) - Lab Interpretations Lab Results: 10/25/17 05:00 10/25/17 05:00 Lab Results 10/25/17 05:00: Sodium 138, Potassium 4.6, Chloride 96 L, Carbon Dioxide 28, Anion Gap 19, BUN 26 H, Creatinine 1.0, Est GFR ( Amer) > 60, Est GFR ( Non-Af Amer) > 60, Random Glucose 486 H* D, Calcium 8.9, Total Bilirubin 0.5, AST 24, ALT 37, Alkaline Phosphatase 75, Troponin I < 0.01, Total Protein 7.2, Albumin 4.1, Globulin 3.1, Albumin/Globulin Ratio 1.3 10/25/17 05:00: WBC 7.1 D, RBC 3.73, Hgb 10.3 L, Hct 32.2 L, MCV 86.3 D, MCH 27.6, MCHC 32.0, RDW 14.3, Plt Count 270, MPV 9.9, Gran % 95.7 H, Lymph % (Auto ) 2.3 L, Grant % (Auto) 2.0, Eos % (Auto) 0.0 L, Baso % (Auto) 0.0, Gran # 6.75 H , Lymph # (Auto) 0.2 L, Grant # (Auto) 0.1, Eos # (Auto) 0.0, Baso # (Auto) 0.00 , Neutrophils % (Manual) Pending, Lymphocytes % (Manual) Pending, Monocytes % ( Manual) Pending - RAD Interpretation Radiology Orders: 10/25/17 05:14 CHEST PORTABLE [RAD] Stat - Medication Orders Current Medication Orders: Discontinued Medications Albuterol/Ipratropium (Duoneb 3 Mg/0.5 Mg (3 Ml) Ud) 3 ml IH Q15M AMAYA Stop: 10/25/17 05:46 Last Admin: 10/25/17 05:37 Dose: 3 ml Insulin Human Regular (Humulin R) 8 units SC STAT STA Stop: 10/25/17 06:28 Last Admin: 10/25/17 06:35 Dose: 8 units MAR Blood Glucose Document 10/25/17 06:35 AD (Rec: 10/25/17 06:36 AD [id number]) Blood Glucose Finger Stick Blood Glucose (70-120) 486 Subcutaneous Administrations Document 10/25/17 06:35 AD (Rec: 10/25/17 06:36 AD [id number]) Injection Site MAR Injection Site Left Arm Charges for Administration # of Subcutaneous Administrations 1 Methylprednisolone (Solu-Medrol) 125 mg IVP STAT STA Stop: 10/25/17 05:15 Last Admin: 10/25/17 05:28 Dose: 125 mg IVP Administration Document 10/25/17 05:28 AD (Rec: 10/25/17 05:29 AD [id number]) Charges for Administration # of IVP Administrations 1 - PA / SHOVEL OILER / Resident Statement MD/DO has reviewed & agrees with the documentation as recorded. MD/DO has examined the patient and agrees with the treatment plan. Disposition/Present on Arrival - Present on Arrival Any Indicators Present on Arrival: No History of DVT/PE: No History of Uncontrolled Diabetes: No Urinary Catheter: No History of Decub. Ulcer: No History Surgical Site Infection Following: None - Disposition Have Diagnosis and Disposition been Completed?: Yes Disposition Time: 08:00 Patient Plan: Admission - Disposition Diagnosis: COPD, frequent exacerbations Disposition: HOSPITALIZED Patient Problems: Current Active Problems Problem Status Onset COPD, frequent exacerbations Chronic Condition: FAIR
[2017-10-25 06:21] LABS: TROPONIN I < 0.01 ng/mL
[2017-10-25 06:23] LABS: ALB/GLOB RATIO 1.3 (1.1-1.8); ALBUMIN 4.1 g/dL (3.0-4.8); ALT/SGPT 37 U/L (7-56); AST/SGOT 24 U/L (17-59); BLOOD UREA NITROGEN 26 mg/dL (7-21); CALCIUM 8.9 mg/dL (8.4-10.5); GFR AFRICAN-AMERICAN > 60; GFR NON-AFRICAN AMERICAN > 60
[2017-10-25] MEDS ORDERED: Insulin Regular 1 UNITS/0.01 ML ML SC STA (06:27)
[2017-10-25 06:29] LABS: GRAN # 6.75 (1.4-6.5); GRAN % 95.7 % (50.0-68.0); HEMOGLOBIN 10.3 g/dL (14.0-18.0); LYMPH # 0.2 (1.2-3.4); LYMPH % 2.3 % (22.0-35.0); MEAN CELL VOLUME 86.3 fl (80.0-105.0); MEAN CORPUSCULAR HEMOGLOBIN 27.6 pg (25.0-35.0); MEAN PLATELET VOLUME 9.9 fl (7.0-11.0); MONO # 0.1 (0.1-0.6); PLATELET COUNT 270 10^3/uL (120.0-450.0); RBC 3.73 10^6/uL (3.5-6.1); RED CELL DISTRIBUTION WIDTH 14.3 % (11.5-14.5); WHITE BLOOD COUNT 7.1 10^3/ul (4.5-11.0)
[2017-10-25 07:00] LABS: ARTERIAL BLOOD GAS HCO3 25.4 mmol/L (21-28); ARTERIAL BLOOD GAS HEMOGLOBIN 9.4 g/dL (11.7-17.4); ARTERIAL BLOOD GAS O2 CONTENT 12.9 ML/dl (15-23); ARTERIAL BLOOD GAS O2 SAT 99.2 % (95-98); ARTERIAL BLOOD GAS PCO2 42 mm/Hg (35-45); ARTERIAL BLOOD GAS PH 7.39 (7.35-7.45); ARTERIAL BLOOD GAS TCO2 26.7 mmol.L (22-28)
[2017-10-25 08:59] LABS: LYMPHOCYTE 2 % (22.0-35.0); MONOCYTE 2 % (1.0-6.0); NEUTROPHIL 96 % (50.0-70.0)
--- NOTE | 2017-10-25 09:00 | RAD ---
HISTORY: Shortness of breath. COMPARISON: No prior. FINDINGS: LUNGS: No active pulmonary disease. PLEURA: No significant pleural effusion identified, no pneumothorax apparent. CARDIOVASCULAR: Normal. OSSEOUS STRUCTURES: No significant abnormalities. VISUALIZED UPPER ABDOMEN: Normal. OTHER FINDINGS: None. IMPRESSION: No active disease.
[2017-10-25 09:01] LABS: PLATELET ESTIMATE NORMAL (NORMAL)
--- NOTE | 2017-10-25 09:12 | CARD ---
APPROVED REPORT EKG Measurement Heart [id number] <Conclusion> Sinus tachycardia ST elevations c/w early repolarization. No change
[2017-10-25] MEDS ORDERED: Albuterol-Ipratrop 3 mg / 0.5 (3 ml) UD IH PRN (09:13)
--- NOTE | 2017-10-25 09:25 | CP.PCM.HP ---
<Dez Tan - Last Filed: 10/25/17 15:11> History of Present Illness - History of Present Illness History of Present Illness: Dez Tan DO PGY-2: Hospitalist Service HPI for Dr. Manisha Leyva 62 year old male with a past medical history of HIV, COPD (on 2L Nasal Cannula) , hypertension, pancreatitis who presents with 2 days of shortness of breath, worsened with exertion and associated chest tightness. He reports [place] in [place] in [place] [facility] [place], but not being admitted or given antibiotics. He denies any radiation of the chest pain, states it is worsened by his cough, and around his rib-cage. Patient reports a dry cough without sputum production. He denies any fever, chills, hemoptysis, diarrhea, recent antibiotic use, or new exposures. He does report taking Prednisone tablets intermittently for his current symptoms along with maximal use of his albuterol inhaler, as well as using his home oxygen, all of which have not improved his symptoms. In the ED he received 125 mg of Solumedrol, 3 doses of duonebs, and underwent a chest X-ray that showed no infiltrate. PMH: COPD (on 2L Home O2), Pancreatitis, HIV, DM II, Hep C, and Cataracts PSH: Right Cataract Surgery Allergies: denies Social History:51 pack year history; Heavy drinker, quit a few years ago, Lives alone, currently denies illicit drug use PMD: Dr. River hsieh [facility] [place] Present on Admission - Present on Admission Any Indicators Present on Admission: No Review of Systems - Constitutional Constitutional: absent: Chills, Daytime Sleepiness, Headache - EENT Eyes: absent: Blurred Vision, Diplopia Nose/Mouth/Throat: Change in Voice. absent: Nasal Congestion, Nasal Discharge - Cardiovascular Cardiovascular: Dyspnea. absent: Paroxysmal Nocturnal Dyspnea, Syncope - Respiratory Respiratory: Dyspnea on Exertion, Wheezing, Pain with Coughing - Gastrointestinal Gastrointestinal: absent: Bloating, Diarrhea, Dysphagia - Genitourinary Genitourinary: absent: Change in Urinary Stream, Difficulty Urinating, Nocturia - Musculoskeletal Musculoskeletal: absent: Back Pain, Joint Swelling, Muscle Weakness - Integumentary Integumentary: Swelling (face and legs). absent: Bleeding Lesions, Changing Lesions - Neurological Neurological: absent: Dizziness, Numbness, Loss of Vision - Psychiatric Psychiatric: absent: Anxiety, Depression - Endocrine Endocrine: absent: Change in Body Appearance, Deepening of Voice, Increase in Ring/Shoe/Hat Size - Hematologic/Lymphatic Hematologic: absent: Easy Bleeding, Easy Bruising Past Patient History - Infectious Disease Hx of Infectious Diseases: None - Tetanus Immunizations Tetanus Immunization: Unknown - Past Medical History & Family History Past Medical History?: Yes - Past Social History Smoking Status: Former Smoker - CARDIAC Hx Cardiac Disorders: Yes Hx Hypertension: Yes - PULMONARY Hx Respiratory Disorders: Yes Hx Chronic Obstructive Pulmonary Disease (COPD): Yes - NEUROLOGICAL Hx Neurological Disorder: No - HEENT Hx HEENT Problems: No - RENAL Hx Chronic Kidney Disease: No - ENDOCRINE/METABOLIC Hx Endocrine Disorders: Yes Hx Diabetes Mellitus Type 2: Yes - HEMATOLOGICAL/ONCOLOGICAL Hx Blood Disorders: Yes Hx Hepatitis A: Yes Hx Hepatitis B: Yes Hx Hepatitis C: Yes - INTEGUMENTARY Hx Dermatological Problems: No - MUSCULOSKELETAL/RHEUMATOLOGICAL Hx Musculoskeletal Disorders: No Hx Falls: No - GASTROINTESTINAL Hx Gastrointestinal Disorders: No - GENITOURINARY/GYNECOLOGICAL Hx Genitourinary Disorders: No - PSYCHIATRIC Hx Psychophysiologic Disorder: Yes Hx Anxiety: Yes Hx Substance Use: Yes - SURGICAL HISTORY Hx Orthopedic Surgery: Yes (RT KNEE) Other/Comment: comestic surgery to face post getting kicked in face by horse - ANESTHESIA Hx Anesthesia: Yes Hx Anesthesia Reactions: No Hx Malignant Hyperthermia: No Meds Allergies/Adverse Reactions: Allergies Allergy/AdvReac Type Severity Reaction Status Date / Time No Known Allergies Allergy Verified 10/25/17 04:45 Physical Exam - Constitutional Appears: Chronically Ill, Other (dishevelled) - Head Exam Head Exam: ATRAUMATIC, NORMOCEPHALIC - Eye Exam Eye Exam: EOMI, Normal appearance - ENT Exam ENT Exam: Mucous Membranes Moist - Neck Exam Neck exam: Positive for: Normal Inspection - Respiratory Exam Respiratory Exam: Decreased Breath Sounds (bilaterally), NORMAL BREATHING PATTERN - Cardiovascular Exam Cardiovascular Exam: RRR, +S1, +S2 - GI/Abdominal Exam GI & Abdominal Exam: absent: Guarding, Rebound - Extremities Exam Extremities exam: Positive for: normal inspection. Negative for: calf tenderness Additional comments: 04/23 - Back Exam Back exam: absent: CVA tenderness (L), CVA tenderness (R) - Neurological Exam Neurological exam: Alert, CN II-XII Intact, Oriented x3 - Psychiatric Exam Psychiatric exam: Normal Affect, Normal Mood - Skin Skin Exam: Dry, Intact, Normal Color, Warm Results - Vital Signs Recent Vital Signs: Last Vital Signs Temp 98 F 10/25/17 08:53 Pulse 79 10/25/17 08:53 Resp 21 10/25/17 08:53 BP 121/59 L 10/25/17 08:53 Pulse Ox 98 10/25/17 08:53 - Labs Result Diagrams: 10/25/17 05:00 10/25/17 05:00 Labs: Laboratory Results - last 24 hr 10/25/17 10/25/17 06:50 07:34 pCO2 42 pO2 98.0 HCO3 25.4 ABG pH 7.39 ABG Total CO2 26.7 ABG O2 Saturation 99.2 H ABG O2 Content 12.9 L ABG Base Excess 0.3 ABG Hemoglobin 9.4 L ABG Carboxyhemoglobin 1.8 H POC ABG HHb (Measured) 0.8 ABG Methemoglobin 1.3 ABG O2 Capacity 13.0 L Hgb O2 Saturation 96.1 FiO2 32.0 POC Glucose (mg/dL) 334 H Assessment & Plan - Assessment and Plan (Free Text) Assessment: 62 year old male with a past medical history of HIV, COPD, Hepatitis C, pancreatitis, and DM II who presents with 2 days of shortness of breath, associated chest tightness, a non-productive cough and was found to have an elevated blood glucose level along with a chest X-ray that showed no infiltrate. In the ED the patient was given 8 units of insulin, 125 mg of Solumderol, and 3 doses of Duonebulized treatment. Plan: 1) COPD exacerbation with associated chest tightness - Duonebs q4h AMAYA - Duonebs q2h PRN - Solumedrol 40 mg IVP q8h AMAYA - Mucinex 600-30 DM BID - Oxygen 2L NC titrate 92-94% - Monteleukast 10 mg - Troponins x 3, initial was negative 2) DM II with peripheral neuropathy - ISS Humalog medium - FSGB ACHS - Gabapentin 300 mg TID 3) Hypertension - Amlodipine 5 mg - Losartan 25 mg (patient takes valsartan 40 mg at home) 4) HIV - Abacavir 300 mg BID - Raltegravir 600 mg PO daily 5) DVT/GI prophylaxis - Lovenox 40 mg SC - Protonix 40 mg PO daily Case reviewed and discussed with attending physician, Dr. Manisha Leyva - Date & Time Date: 10/25/17 Time: 14:49 <Manisha Leyva R - Last Filed: 10/25/17 16:16> Results - Vital Signs Recent Vital Signs: Last Vital Signs Temp 98 F 10/25/17 08:53 Pulse 92 H 10/25/17 15:01 Resp 16 10/25/17 09:01 BP 123/79 10/25/17 15:01 Pulse Ox 98 10/25/17 08:53 - Labs Result Diagrams: 10/25/17 05:00 10/25/17 05:00 Labs: Laboratory Results - last 24 hr 10/25/17 10/25/17 10/25/17 06:50 07:34 11:10 pCO2 42 pO2 98.0 HCO3 25.4 ABG pH 7.39 ABG Total CO2 26.7 ABG O2 Saturation 99.2 H ABG O2 Content 12.9 L ABG Base Excess 0.3 ABG Hemoglobin 9.4 L ABG Carboxyhemoglobin 1.8 H POC ABG HHb (Measured) 0.8 ABG Methemoglobin 1.3 ABG O2 Capacity 13.0 L Hgb O2 Saturation 96.1 FiO2 32.0 POC Glucose (mg/dL) 334 H Troponin I < 0.01 10/25/17 10/25/17 11:37 15:46 pCO2 pO2 HCO3 ABG pH ABG Total CO2 ABG O2 Saturation ABG O2 Content ABG Base Excess ABG Hemoglobin ABG Carboxyhemoglobin POC ABG HHb (Measured) ABG Methemoglobin ABG O2 Capacity Hgb O2 Saturation FiO2 POC Glucose (mg/dL) 432 H* 176 H Troponin I Attending/Attestation - Attestation I have personally seen and examined this patient.: Yes I have fully participated in the care of the patient.: Yes I have reviewed all pertinent clinical information: Yes Notes (Text): Patient seen and examined by me at 8:45AM with resident at bedside. Case including physical and assessment and plan discussed with resident. Agree with above with following additions/changes. Patient is a 62-year-old male with past medical history significant for COPD on home oxygen, HIV, hepatitis C, pancreatitis, essential hypertension, and type 2 diabetes who presents to the emergency room with shortness of breath and cough. Patient states the symptoms have been going on for approximately 1 week now. He states over the past week he has gone to [facility] multiple times. States "I was kicked out from the emergency room." Patient states that he has noticed worsening of shortness of breath over the past week. He feels short of breath at rest and with exertion. However the shortness of breath with exertion is a lot worse. She complains of a cough with minimal sputum production. Patient states he's tried nebulizer treatments at home with no relief. States he has also tried prednisone at home with no relief. He has not tried anything for his cough. He denies any associated fevers or chills. No hemoptysis. No chest pain. He does have chest tightness with his shortness of breath and coughing. No nausea, vomiting, or abdominal pain. No headaches or dizziness. No dysuria. No diarrhea or constipation. 14 point review of systems reviewed by me. See above HPI. Systems are negative. Family history reviewed by me. Father of heart disease. Mother and had a history of stroke. Physical exam: Gen: Patient is awake and alert lying in bed in no acute distress HEENT: Normocephalic atraumatic. extraocular muscles intact. Pupils equal and reactive. Hearing grossly intact. Ears and nose externally unremarkable. Oropharynx is pink and moist. No pharyngeal erythema or exudate appreciated. Neck is supple. Pulmonary: Normal respiratory effort. Talking in full sentences. Decreased breath sounds throughout. Coarse breath sounds throughout. No rales or wheezing appreciated. Cardiovascular: Normal rhythm. Normal S1 and S2. No murmurs rubs or gallops appreciated. Gastrointestinal: Soft, nondistended. Nontender. Positive bowel sounds all 4 quadrants. No guarding. No masses appreciated. Musculoskeletal: Normal range of motion all extremities. Calf tenderness. Mild lower extremity edema. Vascular: 2+ peripheral pulses upper and lower extremities Central nervous system: AAO 3. Cranial nerves 2-12 grossly intact. 5 out of 5 muscle strength all extremities. Dermatologic: Skin warm and dry Assessment and plan: Patient is a 62-year-old male who presented with shortness of breath and cough. Patient found to have COPD exacerbation. 1. COPD exacerbation. Patient received Solu-Medrol in the ED. Continue on 40 mg IV every 8hrs. This will need to be tapered. Placed on nebulizer treatments. O2 via nasal cannula as needed, would keep O2 saturation between 92-94%. Patient 's home Symbicort held for now. Will start on Spiriva. Mucinex 600 mg by mouth twice a day. Chest x-ray as read by me shows hyperinflation of the lungs and chronic changes. Monitor for improvement. 2. Type 2 diabetes with peripheral neuropathy. Continue on gabapentin. Patient is unsure of his insulin at home. We'll need to call pharmacy in a.m. to get home doses. We'll place on insulin sliding scale for now. Place on diabetic diet. Monitor Accu-Cheks 3. Essential hypertension. Patient placed on Norvasc and Cozaar. Monitor and adjust blood pressure meds as needed. 4. HIV. Continue home medications 5. Anemia. Chronic. H&H stable. Continue to monitor 6. GI and DVT prophylaxis. Protonix and Lovenox 7. Patient is a full code Case was discussed in detail with patient and medical esthetician regarding current diagnosis and treatment plan.
[2017-10-25] MEDS ORDERED: VALSARTAN PO SCH (10:00)
[2017-10-25] MEDS: MethylPREDNISolone 40 mg Vial IVP SCH ×2 (11:37→17:24)
[2017-10-25] MEDS: Insulin Lispro (humaLOG) MEDIUM Coverage SC SCH ×3 (12:19→21:47)
[2017-10-25] MEDS: guaiFENesin-DM 600-30 mg ER Tab PO SCH ×2 (12:22→17:04)
[2017-10-25] MEDS: Enoxaparin 40 mg Syringe SC SCH ×2 (12:22→12:35)
[2017-10-25 16:06] VITALS: RESP 20; O2SAT 100
[2017-10-25] MEDS: RALTEGRAVIR POTASSIUM 600 MG PO SCH (16:57)
[2017-10-26] MEDS: MethylPREDNISolone 40 mg Vial IVP SCH ×2 (00:45→09:29)
[2017-10-26] MEDS ORDERED: Insulin Regular 1 UNITS/0.01 ML ML SC ONE (02:45)
[2017-10-26] MEDS: Albuterol-Ipratrop 3 mg / 0.5 (3 ml) UD IH SCH ×3 (03:09→11:16)
[2017-10-26] MEDS ORDERED: Pantoprazole 40 mg EC Tab PO SCH (06:00)
[2017-10-26 06:54] LABS: GRAN # 9.86 (1.4-6.5); GRAN % 93.4 % (50.0-68.0); LYMPH # 0.4 (1.2-3.4); LYMPH % 3.4 % (22.0-35.0); MEAN CELL VOLUME 85.1 fl (80.0-105.0); MEAN CORPUSCULAR HEMOGLOBIN 27.4 pg (25.0-35.0); MEAN CORPUSCULAR HGB CONC 32.1 g/dl (31.0-37.0); MEAN PLATELET VOLUME 9.5 fl (7.0-11.0); MONO # 0.3 (0.1-0.6); MONO % 3.2 % (1.0-6.0); RBC 3.29 10^6/uL (3.5-6.1); RED CELL DISTRIBUTION WIDTH 14.3 % (11.5-14.5); WHITE BLOOD COUNT 10.6 10^3/ul (4.5-11.0)
[2017-10-26 07:04] LABS: ALB/GLOB RATIO 1.3 (1.1-1.8); ALBUMIN 3.6 g/dL (3.0-4.8); ALT/SGPT 28 U/L (7-56); AST/SGOT 20 U/L (17-59); BLOOD UREA NITROGEN 31 mg/dL (7-21); CALCIUM 9.3 mg/dL (8.4-10.5); GFR AFRICAN-AMERICAN > 60; GFR NON-AFRICAN AMERICAN > 60
--- NOTE | 2017-10-26 07:52 | CP.PCM.PN ---
Objective - Vital Signs/Intake and Output Vital Signs (last 24 hours): Temp Pulse Resp BP Pulse Ox 98.9 F 73 20 100/72 100 10/25/17 16:05 10/26/17 06:00 10/26/17 00:00 10/26/17 00:00 10/26/17 00:00 Intake and Output: 10/26/17 10/26/17 06:59 18:59 Intake Total 500 Output Total 900 Balance -400 - Medications Medications: Current Medications Abacavir Sulfate (Ziagen) 300 mg PO BID AMAYA PRN Reason: Protocol Last Admin: 10/25/17 17:04 Dose: Not Given Albuterol/Ipratropium (Duoneb 3 Mg/0.5 Mg (3 Ml) Ud) 3 ml IH [id number] [facility] Last Admin: 10/26/17 07:48 Dose: 3 ml Albuterol/Ipratropium (Duoneb 3 Mg/0.5 Mg (3 Ml) Ud) 3 ml IH Q2H PRN PRN Reason: Shortness of Breath Alprazolam (Xanax) 0.25 mg PO TID PRN; Protocol PRN Reason: Anxiety Stop: 11/01/17 10:01 Last Admin: 10/25/17 17:10 Dose: 0.25 mg Amlodipine Besylate (Norvasc) 5 mg PO DAILY [facility] Last Admin: 10/25/17 12:23 Dose: 5 mg Enoxaparin Sodium (Lovenox) 40 mg SC DAILY AMAYA PRN Reason: Protocol Last Admin: 10/25/17 12:35 Dose: Not Given Gabapentin (Neurontin) 300 mg PO TID AMAYA PRN Reason: Protocol Last Admin: 10/25/17 17:04 Dose: 300 mg Guaifenesin/Dextromethorphan (Mucinex-Dm 600-30 Mg) 1 tab PO BID [facility] Last Admin: 10/25/17 17:04 Dose: 1 tab Insulin Human Lispro (Humalog High) 0 units SC ACHS [facility] PRN Reason: Protocol Losartan Potassium (Cozaar) 25 mg PO DAILY [facility] Methylprednisolone (Solu-Medrol) 40 mg IVP Q8H [facility] Last Admin: 10/26/17 00:45 Dose: 40 mg Montelukast Sodium (Singulair) 10 mg PO HS [facility] Last Admin: 10/25/17 21:09 Dose: 10 mg Non-Formulary Medication (Raltegravir Potassium [Isentress Hd]) 600 mg PO DAILY AMAYA Last Admin: 10/25/17 16:57 Dose: Not Given Pantoprazole Sodium (Protonix Ec Tab) 40 mg PO 0600 [facility] Last Admin: 10/26/17 05:24 Dose: Not Given Tiotropium [place] (Spiriva) 18 mcg IH DAILY AMAYA - Labs Labs: 10/26/17 06:30 10/26/17 06:30
[2017-10-26 08:09] VITALS: BP 117/74; PULSE 77; TEMP 98.2
[2017-10-26] MEDS: Insulin Lispro (HUMAlog) HIGH Coverage SC SCH ×2 (08:09→11:35)
[2017-10-26] MEDS: Enoxaparin 40 mg Syringe SC SCH (09:06)
[2017-10-26] MEDS: guaiFENesin-DM 600-30 mg ER Tab PO SCH (09:06)
[2017-10-26] MEDS: RALTEGRAVIR POTASSIUM 600 MG PO SCH (09:10)
[2017-10-26] MEDS ORDERED: Tiotropium 18 mcg Cap For Inhalation IH SCH (10:00)
[2017-10-26] MEDS ORDERED: MethylPREDNISolone 40 mg Vial IVP SCH (12:52)
--- NOTE | 2017-10-26 14:49 | CP.PCM.DIS ---
<Quin Troncoso L - Last Filed: 10/26/17 19:43> Provider - Provider Date of Admission: 10/26/17 12:59 Attending physician: Dulce Rodriguez MD Primary care physician: Ravi Lan MD Consults: Pulmonary: Dr. Stanley Time Spent in preparation of Discharge (in minutes): 45 Diagnosis - Discharge Diagnosis (1) COPD with acute exacerbation Status: Acute Priority: High Comment: COPD improved however did not resolve as patient left against medical advice. (2) History of HIV infection Status: Chronic Priority: High (3) History of hypertension Status: Chronic Priority: Medium (4) History of type 2 diabetes mellitus Status: Chronic Priority: Medium Hospital Course - Lab Results Lab Results: Most Recent Lab Values WBC 10.6 10^3/ul (4.5-11.0) D 10/26/17 06:30 RBC 3.29 10^6/uL (3.5-6.1) L 10/26/17 06:30 Hgb 9.0 g/dL (14.0-18.0) L 10/26/17 06:30 Hct 28.0 % (42.0-52.0) L 10/26/17 06:30 MCV 85.1 fl (80.0-105.0) 10/26/17 06:30 MCH 27.4 pg (25.0-35.0) 10/26/17 06:30 MCHC 32.1 g/dl (31.0-37.0) 10/26/17 06:30 RDW 14.3 % (11.5-14.5) 10/26/17 06:30 Plt Count 239 10^3/uL (120.0-450.0) 10/26/17 06:30 MPV 9.5 fl (7.0-11.0) 10/26/17 06:30 Gran % 93.4 % (50.0-68.0) H 10/26/17 06:30 Lymph % (Auto) 3.4 % (22.0-35.0) L 10/26/17 06:30 [place] % (Auto) 3.2 % (1.0-6.0) 10/26/17 06:30 Eos % (Auto) 0.0 % (1.5-5.0) L 10/26/17 06:30 Baso % (Auto) 0.0 % (0.0-3.0) 10/26/17 06:30 Gran # 9.86 (1.4-6.5) H 10/26/17 06:30 Lymph # (Auto) 0.4 (1.2-3.4) L 10/26/17 06:30 [place] # (Auto) 0.3 (0.1-0.6) 10/26/17 06:30 Eos # (Auto) 0.0 (0.0-0.7) 10/26/17 06:30 Baso # (Auto) 0.00 K/mm3 (0.0-2.0) 10/26/17 06:30 Neutrophils % (Manual) 96 % (50.0-70.0) H 10/25/17 05:00 Lymphocytes % (Manual) 2 % (22.0-35.0) L 10/25/17 05:00 Monocytes % (Manual) 2 % (1.0-6.0) 10/25/17 05:00 Platelet Evaluation Normal (NORMAL) 10/25/17 05:00 pCO2 42 mm/Hg (35-45) 10/25/17 06:50 pO2 98.0 mm/Hg (80-100) 10/25/17 06:50 HCO3 25.4 mmol/L (21-28) 10/25/17 06:50 ABG pH 7.39 (7.35-7.45) 10/25/17 06:50 ABG Total CO2 26.7 mmol.L (22-28) 10/25/17 06:50 ABG O2 Saturation 99.2 % (95-98) H 10/25/17 06:50 ABG O2 Content 12.9 ML/dl (15-23) L 10/25/17 06:50 ABG Base Excess 0.3 mmol/L (-2.0-3.0) 10/25/17 06:50 ABG Hemoglobin 9.4 g/dL (11.7-17.4) L 10/25/17 06:50 ABG Carboxyhemoglobin 1.8 % (0.5-1.5) H 10/25/17 06:50 POC ABG HHb (Measured) 0.8 % (0-5) 10/25/17 06:50 ABG Methemoglobin 1.3 % (0.0-3.0) 10/25/17 06:50 ABG O2 Capacity 13.0 mL/dl (16-24) L 10/25/17 06:50 Hgb O2 Saturation 96.1 % (95.0-98.0) 07 06:50 FiO2 32.0 % 07 06:50 Sodium 136 mmol/L (132-148) 10/26/17 06:30 Potassium 4.2 mmol/L (3.6-5.0) 10/26/17 06:30 Chloride 98 mmol/L (98-107) 10/26/17 06:30 Carbon Dioxide 28 mmol/L (21-33) 10/26/17 06:30 Anion Gap 15 (10-20) 10/26/17 06:30 BUN 31 mg/dL (7-21) H 10/26/17 06:30 Creatinine 1.1 mg/dl (0.8-1.5) 10/26/17 06:30 Est GFR ( Amer) > 60 10/26/17 06:30 Est GFR (Non-Af Amer) > 60 10/26/17 06:30 POC Glucose (mg/dL) 315 mg/dL (65-110) H 10/26/17 11:23 Random Glucose 310 mg/dL (70-110) H* D 10/26/17 06:30 Calcium 9.3 mg/dL (8.4-10.5) 10/26/17 06:30 Total Bilirubin 0.2 mg/dL (0.2-1.3) 10/26/17 06:30 AST 20 U/L (17-59) 10/26/17 06:30 ALT 28 U/L (7-56) 10/26/17 06:30 Alkaline Phosphatase 55 U/L (38-126) 10/26/17 06:30 Troponin I < 0.01 ng/mL 10/25/17 17:11 Total Protein 6.4 g/dL (5.8-8.3) 10/26/17 06:30 Albumin 3.6 g/dL (3.0-4.8) 10/26/17 06:30 Globulin 2.7 gm/dL 07/09/18 06:30 Albumin/Globulin Ratio 1.3 (1.1-1.8) 10/26/17 06:30 - Hospital Course Hospital Course: 62 year old male with a past medical history of HIV, COPD, Hepatitis C, pancreatitis, and DM II who presents with 2 days of shortness of breath, associated chest tightness, a non-productive cough. He was admitted on 10/25 for workup and management of acute exacerbation of COPD associated with chest tightness. Patient was treated with duonebs, solumedrol, mucinex, oxygen 2L NC, montelukast, azithromycin in addition to home medications. Troponins were negative x3. EKG showed sinus tachy. CXR showed no active disease. On 10/26, patient signed out AMA. Risks and benefits were thoroughly discussed with patient. All questions and concerns were addressed. He was discharged with azithromycin and medrol dose pack. He was instructed to follow up with Dr. Lan and his wellness educator Dr. Floyd within one week. He was advised to return to the ED if symptoms worsen. - Date & Time of H&P Date of H&P: 10/25/17 Time of H&P: 09:24 Discharge Exam - Head Exam Head Exam: ATRAUMATIC, NORMOCEPHALIC - Eye Exam Eye Exam: EOMI, Normal appearance Pupil Exam: NORMAL ACCOMODATION - ENT Exam ENT Exam: Normal External Ear Exam - Neck Exam Neck exam: Full Rom - Respiratory Exam Respiratory Exam: Wheezes, NORMAL BREATHING PATTERN - Cardiovascular Exam Cardiovascular Exam: REGULAR RHYTHM, +S1, +S2 - GI/Abdominal Exam GI & Abdominal Exam: Normal Bowel Sounds, Soft. absent: Distended, Firm - Neurological Exam Neurological exam: Alert, Oriented x3 - Psychiatric Exam Psychiatric exam: Normal Affect, Normal Mood - Skin Skin Exam: Dry, Intact, Normal Color Discharge Plan - Discharge Medications Prescriptions: Azithromycin [Zithromax] 250 mg PO DAILY 4 Days tab Methylprednisolone [Medrol Dose Pack (21 tabs)] See Taper PO DAILY #21 mg - Follow Up Plan Condition: FAIR Disposition: AGAINST MEDICAL ADVICE Instructions: Acute Kidney Injury (DC) Additional Instructions: Patient left against medical advice. Risks and benefits thoroughly discussed with patient. All questions and concerns were addressed. Referrals: Ravi Lan MD [Primary Care Provider] - Maxim Floyd MD [Non-Staff] - <Dulce Rodriguez - Last Filed: 10/27/17 14:05> Provider - Provider Date of Admission: 10/26/17 12:59 Attending physician: Dulce Rodriguez MD Primary care physician: Ravi Lan MD Hospital Course - Lab Results Lab Results: Most Recent Lab Values WBC 10.6 10^3/ul (4.5-11.0) D 10/26/17 06:30 RBC 3.29 10^6/uL (3.5-6.1) L 10/26/17 06:30 Hgb 9.0 g/dL (14.0-18.0) L 10/26/17 06:30 Hct 28.0 % (42.0-52.0) L 10/26/17 06:30 MCV 85.1 fl (80.0-105.0) 10/26/17 06:30 MCH 27.4 pg (25.0-35.0) 10/26/17 06:30 MCHC 32.1 g/dl (31.0-37.0) 10/26/17 06:30 RDW 14.3 % (11.5-14.5) 10/26/17 06:30 Plt Count 239 10^3/uL (120.0-450.0) 10/26/17 06:30 MPV 9.5 fl (7.0-11.0) 10/26/17 06:30 Gran % 93.4 % (50.0-68.0) H 10/26/17 06:30 Lymph % (Auto) 3.4 % (22.0-35.0) L 10/26/17 06:30 Crawford % (Auto) 3.2 % (1.0-6.0) 10/26/17 06:30 Eos % (Auto) 0.0 % (1.5-5.0) L 10/26/17 06:30 Baso % (Auto) 0.0 % (0.0-3.0) 10/26/17 06:30 Gran # 9.86 (1.4-6.5) H 10/26/17 06:30 Lymph # (Auto) 0.4 (1.2-3.4) L 10/26/17 06:30 [place] # (Auto) 0.3 (0.1-0.6) 10/26/17 06:30 Eos # (Auto) 0.0 (0.0-0.7) 10/26/17 06:30 Baso # (Auto) 0.00 K/mm3 (0.0-2.0) 10/26/17 06:30 Neutrophils % (Manual) 96 % (50.0-70.0) H 10/25/17 05:00 Lymphocytes % (Manual) 2 % (22.0-35.0) L 10/25/17 05:00 Monocytes % (Manual) 2 % (1.0-6.0) 10/25/17 05:00 Platelet Evaluation Normal (NORMAL) 10/25/17 05:00 pCO2 42 mm/Hg (35-45) 10/25/17 06:50 pO2 98.0 mm/Hg (80-100) 10/25/17 06:50 HCO3 25.4 mmol/L (21-28) 10/25/17 06:50 ABG pH 7.39 (7.35-7.45) 10/25/17 06:50 ABG Total CO2 26.7 mmol.L (22-28) 10/25/17 06:50 ABG O2 Saturation 99.2 % (95-98) H 10/25/17 06:50 ABG O2 Content 12.9 ML/dl (15-23) L 10/25/17 06:50 ABG Base Excess 0.3 mmol/L (-2.0-3.0) 10/25/17 06:50 ABG Hemoglobin 9.4 g/dL (11.7-17.4) L 10/25/17 06:50 ABG Carboxyhemoglobin 1.8 % (0.5-1.5) H 10/25/17 06:50 POC ABG HHb (Measured) 0.8 % (0-5) 10/25/17 06:50 ABG Methemoglobin 1.3 % (0.0-3.0) 10/25/17 06:50 ABG O2 Capacity 13.0 mL/dl (16-24) L 10/25/17 06:50 Hgb O2 Saturation 96.1 % (95.0-98.0) 10/25/17 06:50 FiO2 32.0 % 10/25/17 06:50 Sodium 136 mmol/L (132-148) 10/26/17 06:30 Potassium 4.2 mmol/L (3.6-5.0) 10/26/17 06:30 Chloride 98 mmol/L (98-107) 10/26/17 06:30 Carbon Dioxide 28 mmol/L (21-33) 10/26/17 06:30 Anion Gap 15 (10-20) 10/26/17 06:30 BUN 31 mg/dL (7-21) H 10/26/17 06:30 Creatinine 1.1 mg/dl (0.8-1.5) 10/26/17 06:30 Est GFR ( Amer) > 60 10/26/17 06:30 Est GFR (Non-Af Amer) > 60 10/26/17 06:30 POC Glucose (mg/dL) 315 mg/dL (65-110) H 10/26/17 11:23 Random Glucose 310 mg/dL (70-110) H* D 10/26/17 06:30 Calcium 9.3 mg/dL (8.4-10.5) 10/26/17 06:30 Total Bilirubin 0.2 mg/dL (0.2-1.3) 10/26/17 06:30 AST 20 U/L (17-59) 10/26/17 06:30 ALT 28 U/L (7-56) 10/26/17 06:30 Alkaline Phosphatase 55 U/L (38-126) 10/26/17 06:30 Troponin I < 0.01 ng/mL 10/25/17 17:11 Total Protein 6.4 g/dL (5.8-8.3) 10/26/17 06:30 Albumin 3.6 g/dL (3.0-4.8) 10/26/17 06:30 Globulin 2.7 gm/dL 10/26/17 06:30 Albumin/Globulin Ratio 1.3 (1.1-1.8) 10/26/17 06:30 Attending/Attestation - Attestation I have personally seen and examined this patient.: Yes I have fully participated in the care of the patient.: Yes I have reviewed all pertinent clinical information, including history, physical exam and plan: Yes Notes (Text): 10/27/17 14:01 Attending note; Patient seen and examined with resident in the morning. Patient is a 62-year-old male with a history of COPD, home oxygen dependent , history of smoking , drug abuse was admitted with acute COPD exacerbation. Continue oxygen, DuoNeb and IV solumedrol 40 mg IV every 8hrs. Chest x-ray as read by me shows hyperinflation of the lungs and chronic changes. Monitor for improvement. No acute infiltrate. Patient is started on Zithromax for bronchitis symptoms. Type 2 diabetes with peripheral neuropathy. Continue on gabapentin. Continue insulin. Essential hypertension; on Norvasc and Cozaar. Monitor and adjust blood pressure meds as needed. HIV. Continue home medications. Anemia. Chronic. H&H stable. Continue to monitor Possible discharge home tomorrow. Case was discussed in detail with patient and nuclear medical tech regarding current diagnosis and treatment plan. Addendum; Later that day the patient signed AGAINST MEDICAL ADVICE. Prescription for Medrol Dosepak, azithromycin given.
[2017-10-26] MEDS ORDERED: Insulin Detemir 100 units/ml Vial (Levemir) SC SCH (22:00)
== END 2017-10-26 14:36 | disposition left against medical advice (07) | DRG 192 ==
LOC: ED 04:44 → ERH 06:04 → 3RNO 08:43 → OBSVTOIN 10-26 12:59
PROVIDERS: ADMIT Internal Medicine; ATTEND Internal Medicine
DX: J44.1 Chronic obstructive pulmonary disease with (acute) exacerbation (principal); Z21 Asymptomatic human immunodeficiency virus [HIV] infection status; D64.9 Anemia, unspecified; E11.42 Type 2 diabetes mellitus with diabetic polyneuropathy; E11.65 Type 2 diabetes mellitus with hyperglycemia; I10 Essential (primary) hypertension; Z79.899 Other long term (current) drug therapy; Z87.891 Personal history of nicotine dependence; Z98.41 Cataract extraction status, right eye; Z99.81 Dependence on supplemental oxygen; Z86.19 Personal history of other infectious and parasitic diseases

== ENCOUNTER 2017-10-27 13:39 | Inpatient (IN) | payer MEDICARE, MEDICAID ==
[2017-10-27 13:39] VITALS: BMI 26.6
--- NOTE | 2017-10-27 13:58 | ED PDOC ---
Arrival/HPI - General Time Seen by Provider: 10/27/17 13:45 Historian: Patient, EMS - History of Present Illness Narrative History of Present Illness (Text): 10/27/17 13:59 Patient is a 62 year old male, past medical history of hiv, copd, diabetes, hypertension, presents to the Emergency Department stating that he has been feeling short of breath with productive cough since this AM. He states he "signed out of the hospital yesterday" and "felt fine when I went home". Currently denies chest pain. Denies hemoptysis. Denies leg pain or swelling. Denies nausea or vomiting. Denies abdominal pain. Time/Duration: Prior to Arrival Symptom Onset: Gradual Past Medical History - Infectious Disease Hx of Infectious Diseases: None - Tetanus Immunization Tetanus Immunization: Unknown - Cardiac Hx Cardiac Disorders: Yes Hx Hypertension: Yes - Pulmonary Hx Respiratory Disorders: Yes Hx Chronic Obstructive Pulmonary Disease (COPD): Yes - Neurological Hx Neurological Disorder: No - HEENT Hx HEENT Disorder: No - Renal Hx Renal Disorder: No - Endocrine/Metabolic Hx Endocrine Disorders: Yes Hx Diabetes Mellitus Type 2: Yes - Hematological/Oncological Hx Blood Disorders: Yes Hx Hepatitis A: Yes Hx Hepatitis B: Yes Hx Hepatitis C: Yes - Integumentary Hx Dermatological Disorder: No - Musculoskeletal/Rheumatological Hx Musculoskeletal Disorders: No Hx Falls: No - Gastrointestinal Hx Gastrointestinal Disorders: No - Genitourinary/Gynecological Hx Genitourinary Disorders: No - Psychiatric Hx Psychophysiologic Disorder: Yes Hx Anxiety: Yes Hx Substance Use: Yes - Surgical History Hx Orthopedic Surgery: Yes (RT KNEE) Other/Comment: comestic surgery to face post getting kicked in face by horse - Anesthesia Hx Anesthesia: Yes Hx Anesthesia Reactions: No Hx Malignant Hyperthermia: No - Suicidal Assessment Feels Threatened In Home Enviroment: No Family/Social History Family/Social History: Unknown Family HX Smoking Status: Former Smoker Hx Alcohol Use: No Hx Substance Use: Yes Substance used: heroine Allergies/Home Meds Allergies/Adverse Reactions: Allergies No Known Allergies Allergy (Verified 10/27/17 13:55) Home Medications: Home Meds Medication Instructions Recorded Confirmed Valsartan [Diovan] 1 tab PO DAILY 08/16/16 10/25/17 Gabapentin [Neurontin] 300 mg PO TID 06/10/17 10/25/17 Raltegravir Potassium [Isentress 600 mg PO DAILY 10/25/17 10/25/17 Hd] Review of Systems - Review of Systems Constitutional: Fatigue. absent: Fevers Eyes: absent: Vision Changes, Eye Pain ENT: absent: Hearing Changes, Sore Throat Respiratory: SOB, Cough, Sputum, Wheezing Cardiovascular: absent: Chest Pain, Palpitations, Edema, Calf Pain, Orthopnea Gastrointestinal: absent: Abdominal Pain, Diarrhea, Nausea Genitourinary Male: absent: Dysuria, Frequency Musculoskeletal: absent: Back Pain, Neck Pain Skin: absent: Rash Neurological: absent: Headache, Dizziness, Focal Weakness Endocrine: absent: Polyuria Psychiatric: absent: Suicidal Ideation Physical Exam Vital Signs Reviewed: Yes Vital Signs Temp Pulse Resp BP Pulse Ox 10/27/17 19:45 86 19 98 10/27/17 17:44 89 15 100/54 L 96 10/27/17 15:45 92 H 20 104/57 L 98 10/27/17 13:59 98.4 F 108 H 25 H 94/54 L 98 10/27/17 13:57 24 95 Temperature: Afebrile Respiratory Rate: Tachypneic Appearance: Positive for: Ill-Appearing Pain Distress: Moderate Mental Status: Positive for: Alert and Oriented X 3 - Systems Exam Head: Present: Atraumatic Pupils: Present: PERRL Mouth: Present: Dry Pharnyx: No: ERYTHEMA, EXUDATE, TONSILS ENLARGED, Uvular Deviation, Muffled/ Hoarse Voice, Strider Nose (Internal): Present: Normal Inspection Neck: Present: Normal Range of Motion. No: Meningeal Signs Respiratory/Chest: Present: Wheezes, Rhonchi, Tachypneic. No: Accessory Muscle Use, Retracting Cardiovascular: Present: Murmurs, Tachycardic Abdomen: No: Tenderness, Distention Back: No: CVA Tenderness Upper Extremity: No: Cyanosis Lower Extremity: No: Edema, CALF TENDERNESS Neurological: Present: Motor Func Grossly Intact, Normal Sensory Function Skin: Present: Warm Psychiatric: Present: Alert, Normal Insight, Normal Concentration Medical Decision Making ED Course and Treatment: Patient's recent admission reviewed. Patient had signed out against medical advice. He states he currently does not smoke. He has productive sputum. Currently deneis chest pain. No calf pain or swelling. No pleuritic pain. Diffuse wheezing and rhonchi noted, improved but persistent after multiple nebs and iv steroids. Afebrile, although elevated lactate and at times tachypneic. CODE SEPSIS called. IV fluids and iv antibiotics ordered. ABG reviewed reveals hypoxia, although wheezing continually noted with NO chest pain, no calf pain, no pleuritic discomfort. 10/27/2017 14:52 Chest X-ray IMPRESSION: No active disease. Dictator: Linwood Key MD Case d/w hospitalist Dr. Rodriguez, who accepts admission to hospitalist service for COPD exacerbation, possible sepsis. Blood pressure improved. No abdominal pain. No skin lesions or cellulitis noted. - Lab Interpretations Lab Results: 10/27/17 14:32 10/27/17 14:32 Lab Results 10/27/17 14:57: pCO2 51 H, pO2 39.0 L*, HCO3 27.5, ABG pH 7.34 L, ABG Total CO2 29.1 H, ABG O2 Saturation 78.5 L, ABG Base Excess 0.9, ABG Potassium 3.2 L, Glucose 248 H, Lactate 2.9 H, FiO2 40.0, Sodium 138.0, Chloride 103.0, Arterial Blood Potassium 3.2 L 10/27/17 14:35: pO2 42, VBG pH 7.25 L, VBG pCO2 68.0 H*, VBG HCO3 29.8 H, VBG Total CO2 31.9 H, VBG O2 Sat (Calc) 79.3 H, VBG Base Excess 0.8, VBG Potassium 4.1, Glucose 301 H, Lactate 4.4 H*, FiO2 21.0, Sodium 137.0, Chloride 99.0, Venous Blood Potassium 4.1 10/27/17 14:32: Alcohol, Quantitative < 10 10/27/17 14:32: Phosphorus 3.3, Magnesium 2.4 H 10/27/17 14:32: Influenza Typ A,B (EIA) Negative for flu a/b 10/27/17 14:32: Sodium 138, Potassium 4.0, Chloride 96 L, Carbon Dioxide 29, Anion Gap 18, BUN 43 H, Creatinine 1.5, Est GFR ( Amer) 57, Est GFR (Non- Af Amer) 47, Random Glucose 290 H, Calcium 9.4, Total Bilirubin 0.2, AST 19, ALT 28, Alkaline Phosphatase 60, Lactate Dehydrogenase 547, Total Creatine Kinase 29 L, Troponin I < 0.01, NT-Pro-B Natriuret Pep 60.0, Total Protein 7.1, Albumin 4.2, Globulin 2.9, Albumin/Globulin Ratio 1.4, Amylase 121, Lipase 207 10/27/17 14:32: PT 11.2, INR 0.98, APTT 23.0 L 10/27/17 14:32: WBC 10.4, RBC 3.74, Hgb 10.2 L, Hct 32.6 L, MCV 87.2, MCH 27.3, MCHC 31.3, RDW 14.5, Plt Count 254, MPV 9.3, Gran % 87.2 H, Lymph % (Auto) 7.0 L , [place] % (Auto) 5.7, Eos % (Auto) 0.1 L, Baso % (Auto) 0.0, Gran # 9.08 H, Lymph # (Auto) 0.7 L, [place] # (Auto) 0.6, Eos # (Auto) 0.0, Baso # (Auto) 0.00 - RAD Interpretation Radiology Orders: 10/27/17 14:05 CHEST PORTABLE [RAD] Stat - EKG Interpretation EKG Interpretation (Text): EKG at 14:15 sinus tachycardia rate of 108 Interpreted by ED Physician: Yes Type: 12 lead EKG - Medication Orders Current Medication Orders: Abacavir Sulfate (Ziagen) 300 mg PO BID AMAYA PRN Reason: Protocol Albuterol Sulfate (Albuterol 0.083% Inhal Roshni (2.5 Mg/3 Ml) Ud) 2.5 mg IH [id number] PRN PRN Reason: SOB Alprazolam (Xanax) 0.25 mg PO TID AMAYA PRN Reason: Protocol Stop: 11/04/17 10:01 Famotidine (Pepcid) 20 mg PO DAILY AMAYA Gabapentin (Neurontin) 300 mg PO TID AMAYA PRN Reason: Protocol Guaifenesin/Dextromethorphan (Mucinex-Dm 600-30 Mg) 1 tab PO BID AMAYA Vancomycin HCl (Vancomycin 1gm) 1 gm in 250 mls @ 167 mls/hr IVPB Q12H AMAYA PRN Reason: Protocol Last Admin: 10/27/17 17:37 Dose: Levofloxacin/Dextrose (Levaquin 750mg) 750 mg in 150 mls @ 100 mls/hr IVPB DAILY AMAYA PRN Reason: Protocol Stop: 11/03/17 10:00 Sodium Chloride (Sodium Chloride 0.9%) 1,000 mls @ 150 mls/hr IV .Q6H40M AMAYA Insulin Human Regular (Humulin R Med) 0 units SC ACHS AMAYA PRN Reason: Protocol Montelukast Sodium (Singulair) 10 mg PO HS AMAYA Non-Formulary Medication (Budesonide/Formoterol Fumarate [Symbicort 160-4.5 Mcg Inhaler]) 1 aer IH BID AMAYA Non-Formulary Medication (Raltegravir Potassium [Isentress Hd]) 600 mg PO DAILY AMAYA Discontinued Medications Albuterol/Ipratropium (Duoneb 3 Mg/0.5 Mg (3 Ml) Ud) 3 ml IH Q15M AMAYA Stop: 10/27/17 14:46 Last Admin: 10/27/17 15:12 Dose: 3 ml Sodium Chloride (Sodium Chloride 0.9%) 1,000 mls @ 1,000 mls/hr IV .Q1H STA Stop: 10/27/17 16:21 Last Admin: 10/27/17 16:02 Dose: 1,000 mls/hr eMAR Start Stop Document 10/27/17 16:02 MR (Rec: 10/27/17 16:03 MR [id number]) Intravenous Solution Start Date 10/27/17 Start Time 16:02 End Date 10/27/17 End time 17:02 Total Infusion Time 60 Ceftriaxone Sodium (Rocephin 1 Gram Ivpb) 1 gm in 100 mls @ 200 mls/hr IVPB ONCE STA PRN Reason: Protocol Stop: 10/27/17 15:52 Last Admin: 10/27/17 16:02 Dose: 200 mls/hr eMAR Start Stop Document 10/27/17 16:02 MR (Rec: 10/27/17 16:02 MR [id number]) Intravenous Solution Start Date 10/27/17 Start Time 16:02 End Date 10/27/17 End time 16:32 Total Infusion Time 30 Sodium Chloride (Sodium Chloride 0.9%) 1,000 mls @ 999 mls/hr IV .Q1H1M STA Stop: 10/27/17 16:57 Last Admin: 10/27/17 16:03 Dose: 999 mls/hr eMAR Start Stop Document 10/27/17 16:03 MR (Rec: 10/27/17 16:03 MR [id number]) Intravenous Solution Start Date 10/27/17 Start Time 16:03 End Date 10/27/17 End time 17:03 Total Infusion Time 60 Sodium Chloride (Sodium Chloride 0.9%) 500 mls @ 1,000 mls/hr IV .Q30M STA Stop: 10/27/17 16:27 Last Admin: 10/27/17 17:37 Dose: 1,000 mls/hr eMAR Start Stop Document 10/27/17 17:37 MR (Rec: 10/27/17 17:37 MR [id number]) Intravenous Solution Start Date 10/27/17 Start Time 17:37 End Date 10/27/17 End time 18:07 Total Infusion Time 30 Vancomycin HCl (Vancomycin 1gm) 1 gm in 250 mls @ 167 mls/hr IVPB STAT STA PRN Reason: Protocol Stop: 10/27/17 17:48 Last Admin: 10/27/17 17:36 Dose: 167 mls/hr eMAR Start Stop Document 10/27/17 17:36 MR (Rec: 10/27/17 17:37 MR [id number]) Intravenous Solution Start Date 10/27/17 Start Time 17:36 End Date 10/27/17 End time 19:06 Total Infusion Time 90 Sodium Chloride (Sodium Chloride 0.9%) 1,000 mls @ 100 mls/hr IV .Q10H AMAYA Sodium Chloride (Sodium Chloride 0.9%) 500 mls @ 999 mls/hr IV .Q31M STA Stop: 10/27/17 22:17 Methylprednisolone (Solu-Medrol) 125 mg IVP STAT STA Stop: 10/27/17 14:07 Last Admin: 10/27/17 14:42 Dose: 125 mg IVP Administration Document 10/27/17 14:42 MR (Rec: 10/27/17 14:42 MR [id number]) Charges for Administration # of IVP Administrations 1 Disposition/Present on Arrival - Present on Arrival Any Indicators Present on Arrival: No History of DVT/PE: No History of Uncontrolled Diabetes: No Urinary Catheter: No History Surgical Site Infection Following: None - Disposition Have Diagnosis and Disposition been Completed?: Yes Diagnosis: COPD with acute exacerbation, Sepsis Disposition: HOSPITALIZED Disposition Time: 15:30 Patient Plan: Admission Patient Problems: Current Active Problems Problem Status Onset COPD with acute exacerbation Acute Sepsis Acute Condition: SERIOUS
[2017-10-27] MEDS: Albuterol-Ipratrop 3 mg / 0.5 (3 ml) UD IH SCH ×3 (14:42→15:12)
[2017-10-27 14:50] LABS: VENOUS BLOOD GAS BASE EXCESS 0.8 mmol/L (0.0-2.0); VENOUS BLOOD GAS PO2 42 mm/Hg (30-55); VENOUS BLOOD PH 7.25 (7.32-7.43)
--- NOTE | 2017-10-27 14:53 | RAD ---
Date of service: 10/27/2017 HISTORY: sob COMPARISON: 10/25/2017 FINDINGS: LUNGS: No active pulmonary disease. PLEURA: No significant pleural effusion identified, no pneumothorax apparent. CARDIOVASCULAR: Normal. OSSEOUS STRUCTURES: No significant abnormalities. VISUALIZED UPPER ABDOMEN: Normal. OTHER FINDINGS: None. IMPRESSION: No active disease.
[2017-10-27 14:59] LABS: EOS % 0.1 % (1.5-5.0); GRAN # 9.08 (1.4-6.5); GRAN % 87.2 % (50.0-68.0); HEMOGLOBIN 10.2 g/dL (14.0-18.0); LYMPH # 0.7 (1.2-3.4); MEAN CELL VOLUME 87.2 fl (80.0-105.0); MEAN CORPUSCULAR HEMOGLOBIN 27.3 pg (25.0-35.0); MEAN CORPUSCULAR HGB CONC 31.3 g/dl (31.0-37.0); MEAN PLATELET VOLUME 9.3 fl (7.0-11.0); MONO # 0.6 (0.1-0.6); MONO % 5.7 % (1.0-6.0); RBC 3.74 10^6/uL (3.5-6.1); RED CELL DISTRIBUTION WIDTH 14.5 % (11.5-14.5); WHITE BLOOD COUNT 10.4 10^3/ul (4.5-11.0)
[2017-10-27 15:01] LABS: ARTERIAL BLOOD GAS HCO3 27.5 mmol/L (21-28); ARTERIAL BLOOD GAS O2 SAT 78.5 % (95-98); ARTERIAL BLOOD GAS PCO2 51 mm/Hg (35-45); ARTERIAL BLOOD GAS PH 7.34 (7.35-7.45); ARTERIAL BLOOD GAS TCO2 29.1 mmol.L (22-28)
[2017-10-27 15:04] LABS: ALB/GLOB RATIO 1.4 (1.1-1.8); ALBUMIN 4.2 g/dL (3.0-4.8); ALT/SGPT 28 U/L (7-56); AMYLASE 121 U/L (35-125); AST/SGOT 19 U/L (17-59); BLOOD UREA NITROGEN 43 mg/dL (7-21); CALCIUM 9.4 mg/dL (8.4-10.5); GFR AFRICAN-AMERICAN 57; GFR NON-AFRICAN AMERICAN 47; LIPASE 207 U/L (23-300)
[2017-10-27 15:05] LABS: INR 0.98 (0.93-1.08); PROTHROMBIN TIME 11.2 SECONDS (9.4-12.5)
[2017-10-27 15:14] LABS: TROPONIN I < 0.01 ng/mL
[2017-10-27] MEDS ORDERED: Sodium Chloride 0.9% 1,000 ML IV STA ×2 (15:22→15:57)
[2017-10-27] MEDS ORDERED: cefTRIAXone 1 gm 1 GM/100 ML BAG IVPB STA (15:23)
[2017-10-27] MEDS ORDERED: Sodium Chloride 0.9% 500 ML IV STA ×2 (15:58→21:47)
[2017-10-27] MEDS ORDERED: Vancomycin 1gm in NS 250ml 1 GM/250 ML BAG IVPB STA (16:19)
--- NOTE | 2017-10-27 16:41 | CP.PCM.HP ---
<Quin Troncoso - Last Filed: 10/27/17 19:49> History of Present Illness - History of Present Illness History of Present Illness: Patient is a 62 yo male with PMH HIV on HAART therapy, COPD on 2L home O2, DM, HTN presenting to ER with chief complaint of shortness of breath that began about days prior. He had previously signed out against medical advice from [facility] on 10/26. At that time he was discharged with medrol-dose bj and azithromycin, which he never fililed. He also admits to cough with greenish sputum production. Denies headache, chest pain, palpitations, nausea, vomiting, diarrhea, constipation, urinary urgency. Admits to dizziness. PMH: HIV, COPD, DM, HTN, pancreatitis Past surgical: cataracts Social history: Denies alcohol, recreational drug use. Smoked for approximately 50 years. Allergies: NKDA Family history: None PMD: Dr. Holman Present on Admission - Present on Admission Any Indicators Present on Admission: No History of DVT/PE: No History of Uncontrolled Diabetes: No Urinary Catheter: No Decubitus Ulcer Present: No Review of Systems - Constitutional Constitutional: absent: Chills, Fever, Headache - EENT Eyes: absent: Change in Vision Ears: absent: Abnormal Hearing Nose/Mouth/Throat: absent: Sore Throat - Cardiovascular Cardiovascular: Dyspnea. absent: Chest Pain - Respiratory Respiratory: Cough, Dyspnea, Change in Mucous Color. absent: Hemoptysis - Gastrointestinal Gastrointestinal: Abdominal Pain. absent: Constipation, Diarrhea - Genitourinary Genitourinary: absent: Difficulty Urinating, Dysuria, Flank Pain - Integumentary Integumentary: Dry Skin. absent: New Lesions - Neurological Neurological: absent: Abnormal Hearing, Confusion, Memory Loss Past Patient History - Infectious Disease Hx of Infectious Diseases: None - Tetanus Immunizations Tetanus Immunization: Unknown - Past Medical History & Family History Past Medical History?: Yes - Past Social History Smoking Status: Former Smoker - CARDIAC Hx Cardiac Disorders: Yes Hx Hypertension: Yes - PULMONARY Hx Respiratory Disorders: Yes Hx Chronic Obstructive Pulmonary Disease (COPD): Yes - NEUROLOGICAL Hx Neurological Disorder: No - HEENT Hx HEENT Problems: No - RENAL Hx Chronic Kidney Disease: No - ENDOCRINE/METABOLIC Hx Endocrine Disorders: Yes Hx Diabetes Mellitus Type 2: Yes - HEMATOLOGICAL/ONCOLOGICAL Hx Blood Disorders: Yes Hx Hepatitis A: Yes Hx Hepatitis B: Yes Hx Hepatitis C: Yes - INTEGUMENTARY Hx Dermatological Problems: No - MUSCULOSKELETAL/RHEUMATOLOGICAL Hx Musculoskeletal Disorders: No Hx Falls: No - GASTROINTESTINAL Hx Gastrointestinal Disorders: No - GENITOURINARY/GYNECOLOGICAL Hx Genitourinary Disorders: No - PSYCHIATRIC Hx Psychophysiologic Disorder: Yes Hx Anxiety: Yes Hx Substance Use: Yes - SURGICAL HISTORY Hx Orthopedic Surgery: Yes (RT KNEE) Other/Comment: comestic surgery to face post getting kicked in face by horse - ANESTHESIA Hx Anesthesia: Yes Hx Anesthesia Reactions: No Hx Malignant Hyperthermia: No Meds Allergies/Adverse Reactions: Allergies Allergy/AdvReac Type Severity Reaction Status Date / Time No Known Allergies Allergy Verified 10/27/17 13:55 Physical Exam - Constitutional Appears: Non-toxic, No Acute Distress - Head Exam Head Exam: ATRAUMATIC, NORMOCEPHALIC - Eye Exam Eye Exam: EOMI, Normal appearance, PERRL Pupil Exam: NORMAL ACCOMODATION - ENT Exam ENT Exam: Mucous Membranes Dry - Neck Exam Neck exam: Positive for: Normal Inspection. Negative for: Lymphadenopathy, Thyromegaly - Respiratory Exam Respiratory Exam: Decreased Breath Sounds, NORMAL BREATHING PATTERN - Cardiovascular Exam Cardiovascular Exam: REGULAR RHYTHM, +S1, +S2 - GI/Abdominal Exam GI & Abdominal Exam: Normal Bowel Sounds, Soft, Tenderness. absent: Distended, Guarding, Organomegaly, Rebound Additional comments: Tenderness in epigastric region - Extremities Exam Extremities exam: Positive for: normal inspection. Negative for: pedal edema - Back Exam Back exam: NORMAL INSPECTION - Neurological Exam Neurological exam: Alert, CN II-XII Intact, Oriented x3 - Psychiatric Exam Psychiatric exam: Normal Affect, Normal Mood - Skin Skin Exam: Dry, Intact, Normal Color Results - Vital Signs Recent Vital Signs: Last Vital Signs Temp 98.4 F 10/27/17 13:59 Pulse 92 H 10/27/17 15:45 Resp 20 10/27/17 15:45 BP 104/57 L 10/27/17 15:45 Pulse Ox 98 10/27/17 15:45 - Labs Result Diagrams: 10/27/17 14:32 10/27/17 14:32 Labs: Laboratory Results - last 24 hr 10/27/17 10/27/17 10/27/17 14:32 14:32 14:32 WBC 10.4 RBC 3.74 Hgb 10.2 L Hct 32.6 L MCV 87.2 MCH 27.3 MCHC 31.3 RDW 14.5 Plt Count 254 MPV 9.3 Gran % 87.2 H Lymph % (Auto) 7.0 L Knott % (Auto) 5.7 Eos % (Auto) 0.1 L Baso % (Auto) 0.0 Gran # 9.08 H Lymph # (Auto) 0.7 L Knott # (Auto) 0.6 Eos # (Auto) 0.0 Baso # (Auto) 0.00 PT 11.2 INR 0.98 APTT 23.0 L pCO2 pO2 HCO3 ABG pH ABG Total CO2 ABG O2 Saturation ABG Base Excess ABG Potassium VBG pH VBG pCO2 VBG HCO3 VBG Total CO2 VBG O2 Sat (Calc) VBG Base Excess VBG Potassium Glucose Lactate FiO2 Sodium 138 Potassium 4.0 Chloride 96 L Carbon Dioxide 29 Anion Gap 18 BUN 43 H Creatinine 1.5 Est GFR ( Amer) 57 Est GFR (Non-Af Amer) 47 Random Glucose 290 H Calcium 9.4 Total Bilirubin 0.2 AST 19 ALT 28 Alkaline Phosphatase 60 Lactate Dehydrogenase 547 Total Creatine Kinase 29 L Troponin I < 0.01 NT-Pro-B Natriuret Pep 60.0 Total Protein 7.1 Albumin 4.2 Globulin 2.9 Albumin/Globulin Ratio 1.4 Amylase 121 Lipase 207 Arterial Blood Potassium Venous Blood Potassium Influenza Typ A,B (EIA) 10/27/17 10/27/17 10/27/17 14:32 14:35 14:57 WBC RBC Hgb Hct MCV MCH MCHC RDW Plt Count MPV Gran % Lymph % (Auto) Knott % (Auto) Eos % (Auto) Baso % (Auto) Gran # Lymph # (Auto) Knott # (Auto) Eos # (Auto) Baso # (Auto) PT INR APTT pCO2 51 H pO2 42 39.0 L* HCO3 27.5 ABG pH 7.34 L ABG Total CO2 29.1 H ABG O2 Saturation 78.5 L ABG Base Excess 0.9 ABG Potassium 3.2 L VBG pH 7.25 L VBG pCO2 68.0 H* VBG HCO3 29.8 H VBG Total CO2 31.9 H VBG O2 Sat (Calc) 79.3 H VBG Base Excess 0.8 VBG Potassium 4.1 Glucose 301 H 248 H Lactate 4.4 H* 2.9 H FiO2 21.0 40.0 Sodium 137.0 138.0 Potassium Chloride 99.0 103.0 Carbon Dioxide Anion Gap BUN Creatinine Est GFR ( Amer) Est GFR (Non-Af Amer) Random Glucose Calcium Total Bilirubin AST ALT Alkaline Phosphatase Lactate Dehydrogenase Total Creatine Kinase Troponin I NT-Pro-B Natriuret Pep Total Protein Albumin Globulin Albumin/Globulin Ratio Amylase Lipase Arterial Blood Potassium 3.2 L Venous Blood Potassium 4.1 Influenza Typ A,B (EIA) Negative for flu a/b Assessment & Plan - Assessment and Plan (Free Text) Assessment: 62 year old male with a past medical history of HIV, COPD, Hepatitis C, pancreatitis, and DM II who presents with shortness of breath and productive cough, likely secondary to hospital acquired pneumonia. Plan: 1) Sepsis (lactate of 4.4) - Hypotensive to 94/54 and tachycardic to 108 - Possibly due to hospital acquired pneumonia as as patient has a cough and just recently signed out ama - Septic workup- urine cultures, blood cultures, CXR negative - Followup procal - Vancomycin, levaquin - 2.5 L IVF NS bolus given in ED - Continue IVF 100ccs/hr - Followup ID consult - AM labs 2) Acute exacerbation of COPD - CXR shows no active disease - Duonebs - Solumedrol - Mucinex - Oxygen 2L NC titrate 92-94% - Monteleukast - Troponin x1 negative - Vancomycin and levaquin - Followup pulm consult 3) T2DM with neuropathy - Continue home levemir - Accuchecks - Gabapentin 300 mg TID 4) History of hypertension - Hold BP meds for now as patient is currently hypotensive 5) HIV - Continue home medications 6) DVT/GI prophylaxis - Lovenox 40 mg SC - Protonix 40 mg PO daily Case reviewed and discussed with attending physician, Dr. Rodriguez <Dulce Rodriguez - Last Filed: 10/28/17 16:02> Results - Vital Signs Recent Vital Signs: Last Vital Signs Temp 97.1 F L 10/28/17 12:00 Pulse 85 10/28/17 14:00 Resp 19 10/28/17 12:00 BP 125/78 10/28/17 12:00 Pulse Ox 100 10/28/17 06:00 - Labs Result Diagrams: 10/28/17 06:00 10/28/17 06:00 Labs: Laboratory Results - last 24 hr 10/27/17 10/27/17 10/27/17 19:44 20:33 20:59 WBC RBC Hgb Hct MCV MCH MCHC RDW Plt Count MPV Gran % Lymph % (Auto) Knott % (Auto) Eos % (Auto) Baso % (Auto) Gran # Lymph # (Auto) Knott # (Auto) Eos # (Auto) Baso # (Auto) Neutrophils % (Manual) Lymphocytes % (Manual) Monocytes % (Manual) Platelet Evaluation pCO2 pO2 HCO3 ABG pH ABG Total CO2 ABG O2 Saturation ABG Base Excess ABG Potassium VBG pH VBG pCO2 VBG HCO3 VBG Total CO2 VBG O2 Sat (Calc) VBG Base Excess VBG Potassium Sodium Chloride Glucose Lactate FiO2 Potassium Carbon Dioxide Anion Gap BUN Creatinine Est GFR ( Amer) Est GFR (Non-Af Amer) POC Glucose (mg/dL) Random Glucose Hemoglobin A1c Lactic Acid 5.1 H* Calcium Phosphorus Magnesium Iron TIBC % Saturation Ferritin Total Bilirubin AST ALT Alkaline Phosphatase Troponin I Total Protein Albumin Globulin Albumin/Globulin Ratio Vitamin B12 Folate Procalcitonin 0.85 H Arterial Blood Potassium Venous Blood Potassium Urine Color Straw Urine Appearance Clear Urine pH 6.0 Ur Specific [place] 1.010 Urine Protein Negative Urine Glucose (UA) >=1000 Urine Ketones Negative Urine Blood Negative Urine Nitrate Negative Urine Bilirubin Negative Urine Urobilinogen 0.2 Ur Leukocyte Esterase Trace H Urine RBC Negative Urine WBC 0 - 2 Ur Epithelial Cells None Urine Bacteria Neg Urine Other Uyeast 10/27/17 10/27/17 10/27/17 20:59 21:00 22:29 WBC RBC Hgb Hct MCV MCH MCHC RDW Plt Count MPV Gran % Lymph % (Auto) Knott % (Auto) Eos % (Auto) Baso % (Auto) Gran # Lymph # (Auto) Knott # (Auto) Eos # (Auto) Baso # (Auto) Neutrophils % (Manual) Lymphocytes % (Manual) Monocytes % (Manual) Platelet Evaluation pCO2 41 pO2 36 96.0 HCO3 23.2 ABG pH 7.36 ABG Total CO2 24.5 ABG O2 Saturation 99.7 H ABG Base Excess -2.2 L ABG Potassium 3.9 VBG pH 7.29 L VBG pCO2 49.0 VBG HCO3 23.6 VBG Total CO2 25.1 VBG O2 Sat (Calc) 76.5 H VBG Base Excess -3.4 L VBG Potassium 4.4 Sodium 141.0 143.0 Chloride 108.0 H 112.0 H Glucose 289 H 288 H Lactate 4.9 H* 3.0 H FiO2 21.0 28.0 Potassium Carbon Dioxide Anion Gap BUN Creatinine Est GFR ( Amer) Est GFR (Non-Af Amer) POC Glucose (mg/dL) 255 H Random Glucose Hemoglobin A1c Lactic Acid Calcium Phosphorus Magnesium Iron TIBC % Saturation Ferritin Total Bilirubin AST ALT Alkaline Phosphatase Troponin I Total Protein Albumin Globulin Albumin/Globulin Ratio Vitamin B12 Folate Procalcitonin Arterial Blood Potassium 3.9 Venous Blood Potassium 4.4 Urine Color Urine Appearance Urine pH Ur Specific [place] Urine Protein Urine Glucose (UA) Urine Ketones Urine Blood Urine Nitrate Urine Bilirubin Urine Urobilinogen Ur Leukocyte Esterase Urine RBC Urine WBC Ur Epithelial Cells Urine Bacteria Urine Other 10/28/17 10/28/17 10/28/17 06:00 06:00 06:00 WBC 8.7 RBC 3.20 L Hgb 8.7 L Hct 28.0 L MCV 87.5 MCH 27.2 MCHC 31.1 RDW 14.6 H Plt Count 207 MPV 8.8 Gran % 90.9 H Lymph % (Auto) 5.4 L Knott % (Auto) 3.7 Eos % (Auto) 0.0 L Baso % (Auto) 0.0 Gran # 7.92 H Lymph # (Auto) 0.5 L Knott # (Auto) 0.3 Eos # (Auto) 0.0 Baso # (Auto) 0.00 Neutrophils % (Manual) 97 H Lymphocytes % (Manual) 2 L Monocytes % (Manual) 1 Platelet Evaluation Normal pCO2 pO2 HCO3 ABG pH ABG Total CO2 ABG O2 Saturation ABG Base Excess ABG Potassium VBG pH VBG pCO2 VBG HCO3 VBG Total CO2 VBG O2 Sat (Calc) VBG Base Excess VBG Potassium Sodium 143 Chloride 107 Glucose Lactate FiO2 Potassium 4.0 Carbon Dioxide 26 Anion Gap 14 BUN 27 H Creatinine 1.0 Est GFR ( Amer) > 60 Est GFR (Non-Af Amer) > 60 POC Glucose (mg/dL) Random Glucose 270 H Hemoglobin A1c 9.8 H Lactic Acid Calcium 8.6 Phosphorus 2.6 Magnesium 2.2 Iron TIBC % Saturation Ferritin Total Bilirubin 0.1 L AST 17 ALT 24 Alkaline Phosphatase 53 Troponin I Total Protein 5.9 Albumin 3.3 Globulin 2.6 Albumin/Globulin Ratio 1.3 Vitamin B12 Folate Procalcitonin Arterial Blood Potassium Venous Blood Potassium Urine Color Urine Appearance Urine pH Ur Specific [place] Urine Protein Urine Glucose (UA) Urine Ketones Urine Blood Urine Nitrate Urine Bilirubin Urine Urobilinogen Ur Leukocyte Esterase Urine RBC Urine WBC Ur Epithelial Cells Urine Bacteria Urine Other 10/28/17 10/28/17 10/28/17 07:00 07:00 07:34 WBC RBC Hgb Hct MCV MCH MCHC RDW Plt Count MPV Gran % Lymph % (Auto) Knott % (Auto) Eos % (Auto) Baso % (Auto) Gran # Lymph # (Auto) Knott # (Auto) Eos # (Auto) Baso # (Auto) Neutrophils % (Manual) Lymphocytes % (Manual) Monocytes % (Manual) Platelet Evaluation pCO2 pO2 HCO3 ABG pH ABG Total CO2 ABG O2 Saturation ABG Base Excess ABG Potassium VBG pH VBG pCO2 VBG HCO3 VBG Total CO2 VBG O2 Sat (Calc) VBG Base Excess VBG Potassium Sodium Chloride Glucose Lactate FiO2 Potassium Carbon Dioxide Anion Gap BUN Creatinine Est GFR ( Amer) Est GFR (Non-Af Amer) POC Glucose (mg/dL) 463 H* Random Glucose Hemoglobin A1c Lactic Acid Calcium Phosphorus Magnesium Iron 23 L TIBC 298 % Saturation 8 L Ferritin 22.8 Total Bilirubin AST ALT Alkaline Phosphatase Troponin I < 0.01 Total Protein Albumin Globulin Albumin/Globulin Ratio Vitamin B12 354 Folate 11.5 Procalcitonin Arterial Blood Potassium Venous Blood Potassium Urine Color Urine Appearance Urine pH Ur Specific [place] Urine Protein Urine Glucose (UA) Urine Ketones Urine Blood Urine Nitrate Urine Bilirubin Urine Urobilinogen Ur Leukocyte Esterase Urine RBC Urine WBC Ur Epithelial Cells Urine Bacteria Urine Other 10/28/17 10/28/17 08:34 11:38 WBC RBC Hgb Hct MCV MCH MCHC RDW Plt Count MPV Gran % Lymph % (Auto) Knott % (Auto) Eos % (Auto) Baso % (Auto) Gran # Lymph # (Auto) Knott # (Auto) Eos # (Auto) Baso # (Auto) Neutrophils % (Manual) Lymphocytes % (Manual) Monocytes % (Manual) Platelet Evaluation pCO2 pO2 HCO3 ABG pH ABG Total CO2 ABG O2 Saturation ABG Base Excess ABG Potassium VBG pH VBG pCO2 VBG HCO3 VBG Total CO2 VBG O2 Sat (Calc) VBG Base Excess VBG Potassium Sodium Chloride Glucose Lactate FiO2 Potassium Carbon Dioxide Anion Gap BUN Creatinine Est GFR ( Amer) Est GFR (Non-Af Amer) POC Glucose (mg/dL) 229 H Random Glucose Hemoglobin A1c Lactic Acid 2.1 Calcium Phosphorus Magnesium Iron TIBC % Saturation Ferritin Total Bilirubin AST ALT Alkaline Phosphatase Troponin I Total Protein Albumin Globulin Albumin/Globulin Ratio Vitamin B12 Folate Procalcitonin Arterial Blood Potassium Venous Blood Potassium Urine Color Urine Appearance Urine pH Ur Specific [place] Urine Protein Urine Glucose (UA) Urine Ketones Urine Blood Urine Nitrate Urine Bilirubin Urine Urobilinogen Ur Leukocyte Esterase Urine RBC Urine WBC Ur Epithelial Cells Urine Bacteria Urine Other Attending/Attestation - Attestation I have personally seen and examined this patient.: Yes I have fully participated in the care of the patient.: Yes I have reviewed all pertinent clinical information: Yes Notes (Text): 10/28/17 15:57 Attending note; Patient seen and examined with resident in ER. Patient is a 62 year old male with a past medical history of HIV, COPD, home oxygen dependent, history of opiate abuse, Hepatitis C, pancreatitis, and DM II who presents with shortness of breath and productive cough. The patient was found to be tachycardic with increased respiratory difficulty. Patient was mildly hypoxic. Continue nasal O2. Elevated lactic acid level with tachycardia, increased respiratory rate, mild hypotension. Code sepsis called. Started on IV vancomycin and Zosyn. Pulmonary evaluation requested. Continue DuoNeb treatment and IV Solu-Medrol. Patient signed AGAINST MEDICAL ADVICE yesterday after getting treated for COPD exacerbation. Noncompliance with follow-up. HIV; continue above Abacavir and isentress. ID evaluation requested. Prognosis is poor secondary to noncompliance with follow-up. Monitor patient closely. Upon discharge the patient will follow up with PMD Dr. Lan.
--- NOTE | 2017-10-27 16:54 | CARD ---
APPROVED REPORT Date of service: 10/27/2017 EKG Measurement Heart [id number] <Conclusion> Sinus tachycardia Early repolarization Otherwise normal ECG
[2017-10-27] MEDS: Vancomycin 1gm in NS 250ml 1 GM/250 ML BAG IVPB SCH (17:37)
[2017-10-27] MEDS ORDERED: Albuterol HFA 90 mcg/actuation (8 g) IH PRN (18:18)
[2017-10-27] MEDS ORDERED: Albuterol 0.083% Inhal Sol (2.5 mg/3 mL) UD IH PRN (18:31)
--- NOTE | 2017-10-27 19:54 | PCM.SEPTIC ---
<Quin Troncoso L - Last Filed: 10/27/17 19:59> Sepsis Progress Note - Reassessment Type Date of Evaluation: 10/27/17 Time of Evaluation: 19:52 Reassessment Type: Non-invasive reassessment - Non Invasive Reassessment Were the most recent vital sign reviewed: Yes Vital Sign (Latest): Temp Pulse Resp BP Pulse Ox 98.4 F 86 19 100/54 L 98 10/27/17 13:59 10/27/17 19:45 10/27/17 19:45 10/27/17 17:44 10/27/17 19:45 Cardiovascular: Yes: Regular Rate, Rhythm. No: Edema, JVD, Murmur Respiratory: Yes: Decreased Breath Sounds. No: Crackles, Rales, Rhonchi, Respiratory Distress Capillary Refill: Normal (Less than 2 sec) Pulses: Normal Radial, Normal Dorsalis Pedis, Normal Posterior Tibialis Skin: Normal Color, Warm, Dry - Invasive Reassessment (complete 2 of 4) Was a Central Venous Pressure Measurement obtained within 6 Hours after the presentation of septic shock: No Was a central venous oxygen measurement obtained within 6 hours after the presentation of septic shock: No Was a bedside cardiovascular ultrasound performed within 6 hours after the presentation of septic shock: No Was a passive leg raise performed or was a fluid challenge performed within 6 hrs of the initial fluid bolus: No Passive Leg Raise Result: Not Applicable Fluid Challenge performed: No <Tigist Vazquez - Last Filed: 10/28/17 00:08> Sepsis Progress Note - Non Invasive Reassessment Vital Sign (Latest): Temp Pulse Resp BP Pulse Ox 97.7 F 93 H 18 108/49 L 98 10/27/17 21:29 10/27/17 22:00 10/27/17 21:29 10/27/17 21:29 10/27/17 21:29 Attending/Attestation - Attestation I have personally seen and examined this patient.: Yes I have fully participated in the care of the patient.: Yes I have reviewed all pertinent clinical information, including history, physical exam and plan: Yes Notes (Text): 10/27/17 23:56 Pt seen for follow up.Code sepsis was called earlier today. O/E Lungs: Occasional rales,scattered rhonchi and wheezes heard bilaterally. IMP;exacerbation of COPD,sepsis. 10/28/17 00:04
[2017-10-27] MEDS ORDERED: Sodium Chloride 0.9% 1,000 ML IV SCH (20:00)
[2017-10-27 20:01] LABS: URINE APPEARANCE CLEAR (CLEAR); URINE BILIRUBIN NEGATIVE (NEGATIVE); URINE BLOOD NEGATIVE (NEGATIVE); URINE COLOR STRAW (YELLOW); URINE GLUCOSE (UA) >=1000 mg/dL (NEGATIVE); URINE LEUKOCYTE ESTERASE TRACE Leu/uL (NEGATIVE); URINE PROTEIN NEGATIVE mg/dL (<30 mg/dL); URINE UROBILINOGEN 0.2 E.U./dL (<1 E.U./dL)
[2017-10-27 20:05] LABS: URINE BACTERIA NEG (NEG); URINE RBC NEGATIVE /hpf (0-2); URINE WBC 0 - 2 /hpf (0-6)
[2017-10-27 21:07] LABS: VENOUS BLOOD GAS BASE EXCESS -3.4 mmol/L (0.0-2.0); VENOUS BLOOD GAS PO2 36 mm/Hg (30-55); VENOUS BLOOD PH 7.29 (7.32-7.43)
[2017-10-27 22:32] LABS: ARTERIAL BLOOD GAS HCO3 23.2 mmol/L (21-28); ARTERIAL BLOOD GAS O2 SAT 99.7 % (95-98); ARTERIAL BLOOD GAS PCO2 41 mm/Hg (35-45); ARTERIAL BLOOD GAS PH 7.36 (7.35-7.45); ARTERIAL BLOOD GAS TCO2 24.5 mmol.L (22-28)
--- NOTE | 2017-10-27 22:52 | CP.PCM.PN ---
<Mcaario Hanson - Last Filed: 10/27/17 23:56> Subjective - Date & Time of Evaluation Date of Evaluation: 10/27/17 Time of Evaluation: 22:30 - Subjective Subjective: Macario Hanson, PGY-1 progress note for Hospitalist Service, Dr. Vazquez Mr. Parks is a 62 year old Male with a past medical history of HIV, COPD, diabetes, hypertension, who was admitted for COPD exacerbation and shortness of breath with productive cough. Patient currently on nasal cannula 2L, and has no specific complaints. Patient was seen after his lactic acid level was reported 5.1. Vitals: T 97.7 BP 108/49 HR 90 RR 18 sO2 98% on 2L NC Objective - Vital Signs/Intake and Output Vital Signs (last 24 hours): Temp Pulse Resp BP Pulse Ox 97.7 F 90 18 108/49 L 98 10/27/17 21:29 10/27/17 21:29 10/27/17 21:29 10/27/17 21:29 10/27/17 21:29 - Medications Medications: Current Medications Abacavir Sulfate (Ziagen) 300 mg PO BID AMAYA PRN Reason: Protocol Albuterol Sulfate (Albuterol 0.083% Inhal Roshni (2.5 Mg/3 Ml) Ud) 2.5 mg IH [id number] PRN PRN Reason: SOB Alprazolam (Xanax) 0.25 mg PO TID AMAYA PRN Reason: Protocol Stop: 11/04/17 10:01 Famotidine (Pepcid) 20 mg PO DAILY AMAYA Gabapentin (Neurontin) 300 mg PO TID AMAYA PRN Reason: Protocol Guaifenesin/Dextromethorphan (Mucinex-Dm 600-30 Mg) 1 tab PO BID AMAYA Vancomycin HCl (Vancomycin 1gm) 1 gm in 250 mls @ 167 mls/hr IVPB Q12H AMAYA PRN Reason: Protocol Last Admin: 10/27/17 17:37 Dose: Not Given Levofloxacin/Dextrose (Levaquin 750mg) 750 mg in 150 mls @ 100 mls/hr IVPB DAILY AMAYA PRN Reason: Protocol Stop: 11/03/17 10:00 Sodium Chloride (Sodium Chloride 0.9%) 1,000 mls @ 150 mls/hr IV .Q6H40M AMAYA Insulin Human Regular (Humulin R Med) 0 units SC ACHS [facility] PRN Reason: Protocol Montelukast Sodium (Singulair) 10 mg PO HS AMAYA Non-Formulary Medication (Budesonide/Formoterol Fumarate [Symbicort 160-4.5 Mcg Inhaler]) 1 aer IH BID [facility] Non-Formulary Medication (Raltegravir Potassium [Isentress Hd]) 600 mg PO DAILY AMAYA - Labs Labs: PT 11.2 SECONDS (9.4-12.5) 10/27/17 14:32 INR 0.98 (0.93-1.08) 10/27/17 14:32 APTT 23.0 Seconds (25.1-36.5) L 10/27/17 14:32 - Constitutional Appears: No Acute Distress - Head Exam Head Exam: ATRAUMATIC, NORMAL INSPECTION, NORMOCEPHALIC - Eye Exam Eye Exam: PERRL - ENT Exam ENT Exam: Mucous Membranes Moist - Neck Exam Neck Exam: Normal Inspection (occasional rales) - Respiratory Exam Respiratory Exam: Rales, Rhonchi (scattered rhonchi), Wheezes. absent: Respiratory Distress - Cardiovascular Exam Cardiovascular Exam: REGULAR RHYTHM, RRR, +S1, +S2. absent: Tachycardia, JVD - GI/Abdominal Exam GI & Abdominal Exam: Soft, Normal Bowel Sounds. absent: Tenderness, Organomegaly - Extremities Exam Extremities Exam: Normal Inspection - Neurological Exam Neurological Exam: Alert, Awake, Oriented x3 - Psychiatric Exam Psychiatric exam: Agitated (agitated at times) - Skin Skin Exam: Dry, Warm Assessment and Plan - Assessment and Plan (Free Text) Assessment: Elevated Lactic Acid/Sepsis Plan: Mr. Parks is a 62 year old Male with a past medical history of HIV, COPD, diabetes, hypertension, who was admitted for COPD exacerbation and shortness of breath with productive cough. Patient is currently aggravated that others have come in the room. Patient currently on nasal cannula 2L. Lactic Acid of 5.1 was reported. Based on that result, patient was to be given half liter bolus of normal saline, followed by maintenance dose of 150 of NS while waiting for repeat ABG with shock panel results. Repeat ABG results came back improved at pH 7.36, pO2 96, bicarb 23.2 and pCO2 of 41 and lactate of 3.0. At this time, bolus of 500 cc was completed and maintenance fluids at 150 was in progress. Patient seen, case reviewed, and plan discussed with Dr. Jf Vazquez <Tigist Vazquez - Last Filed: 10/28/17 00:19> Objective - Vital Signs/Intake and Output Vital Signs (last 24 hours): Temp Pulse Resp BP Pulse Ox 97.9 F 80 18 108/60 99 10/28/17 00:01 10/28/17 00:01 10/28/17 00:01 10/28/17 00:01 10/28/17 00:01 - Medications Medications: Current Medications Abacavir Sulfate (Ziagen) 300 mg PO BID AMAYA PRN Reason: Protocol Albuterol Sulfate (Albuterol 0.083% Inhal Roshni (2.5 Mg/3 Ml) Ud) 2.5 mg IH [id number] PRN PRN Reason: SOB Alprazolam (Xanax) 0.25 mg PO TID AMAYA PRN Reason: Protocol Stop: 11/04/17 10:01 Famotidine (Pepcid) 20 mg PO DAILY AMAYA Gabapentin (Neurontin) 300 mg PO TID AMAYA PRN Reason: Protocol Guaifenesin/Dextromethorphan (Mucinex-Dm 600-30 Mg) 1 tab PO BID AMAYA Vancomycin HCl (Vancomycin 1gm) 1 gm in 250 mls @ 167 mls/hr IVPB Q12H AMAYA PRN Reason: Protocol Last Admin: 10/27/17 17:37 Dose: Not Given Levofloxacin/Dextrose (Levaquin 750mg) 750 mg in 150 mls @ 100 mls/hr IVPB DAILY AMAYA PRN Reason: Protocol Stop: 11/03/17 10:00 Sodium Chloride (Sodium Chloride 0.9%) 1,000 mls @ 150 mls/hr IV .Q6H40M AMAYA Last Admin: 10/27/17 23:15 Dose: 150 mls/hr Insulin Human Regular (Humulin R Med) 0 units SC ACHS AMAYA PRN Reason: Protocol Last Admin: 10/27/17 23:16 Dose: Not Given Montelukast Sodium (Singulair) 10 mg PO HS AMAYA Last Admin: 10/27/17 23:16 Dose: Not Given Non-Formulary Medication (Budesonide/Formoterol Fumarate [Symbicort 160-4.5 Mcg Inhaler]) 1 aer IH BID AMAYA Non-Formulary Medication (Raltegravir Potassium [Isentress Hd]) 600 mg PO DAILY [facility] - Labs Labs: PT 11.2 SECONDS (9.4-12.5) 10/27/17 14:32 INR 0.98 (0.93-1.08) 10/27/17 14:32 APTT 23.0 Seconds (25.1-36.5) L 10/27/17 14:32 Attending/Attestation - Attestation I have personally seen and examined this patient.: Yes I have fully participated in the care of the patient.: Yes I have reviewed all pertinent clinical information, including history, physical exam and plan: Yes Notes (Text): 10/28/17 00:16 Pt seen with the resident by the bedside.He is admitted for Copd and sepsis. Agree with treatment ordered.
[2017-10-27] MEDS: Sodium Chloride 0.9% 1,000 ML IV SCH (23:15)
[2017-10-27] MEDS: Insulin Reg-MEDIUM-Coverage SC SCH (23:16)
[2017-10-28] MEDS: Vancomycin 1gm in NS 250ml 1 GM/250 ML BAG IVPB SCH ×2 (05:15→15:38)
[2017-10-28 06:35] LABS: GRAN # 7.92 (1.4-6.5); GRAN % 90.9 % (50.0-68.0); HEMOGLOBIN 8.7 g/dL (14.0-18.0); LYMPH # 0.5 (1.2-3.4); LYMPH % 5.4 % (22.0-35.0); MEAN CELL VOLUME 87.5 fl (80.0-105.0); MEAN CORPUSCULAR HEMOGLOBIN 27.2 pg (25.0-35.0); MEAN CORPUSCULAR HGB CONC 31.1 g/dl (31.0-37.0); MEAN PLATELET VOLUME 8.8 fl (7.0-11.0); MONO # 0.3 (0.1-0.6); MONO % 3.7 % (1.0-6.0); PLATELET COUNT 207 10^3/uL (120.0-450.0); RED CELL DISTRIBUTION WIDTH 14.6 % (11.5-14.5); WHITE BLOOD COUNT 8.7 10^3/ul (4.5-11.0)
[2017-10-28 06:38] VITALS: O2SAT 100
[2017-10-28] MEDS: Sodium Chloride 0.9% 1,000 ML IV SCH (06:38)
[2017-10-28 07:06] LABS: ALB/GLOB RATIO 1.3 (1.1-1.8); ALBUMIN 3.3 g/dL (3.0-4.8); ALT/SGPT 24 U/L (7-56); AST/SGOT 17 U/L (17-59); BLOOD UREA NITROGEN 27 mg/dL (7-21); CALCIUM 8.6 mg/dL (8.4-10.5); GFR AFRICAN-AMERICAN > 60; GFR NON-AFRICAN AMERICAN > 60
[2017-10-28] MEDS: Arformoterol 15 mcg/2 ml Inh Sol IH SCH ×2 (07:39→19:30)
[2017-10-28] MEDS: Budesonide 0.25 mg/2 ml Inhal Susp UD IH SCH ×2 (07:39→19:29)
[2017-10-28 07:51] LABS: LYMPHOCYTE 2 % (22.0-35.0); MONOCYTE 1 % (1.0-6.0); NEUTROPHIL 97 % (50.0-70.0); PLATELET ESTIMATE NORMAL (NORMAL)
[2017-10-28] MEDS ORDERED: Dextrose 50% SYRINGE Inj (50 ml) IV PRN (08:17)
[2017-10-28 08:28] LABS: IRON 23 ug/dL (45-180)
[2017-10-28] MEDS: Insulin Reg-MEDIUM-Coverage SC SCH ×4 (08:30→22:26)
[2017-10-28] MEDS: MethylPREDNISolone 40 mg Vial IVP SCH ×3 (08:30→22:25)
[2017-10-28 08:34] LABS: TROPONIN I < 0.01 ng/mL
[2017-10-28 08:37] LABS: % IRON SATURATION 8 % (20-55); TOTAL IRON BINDING CAPACITY 298 ug/dL (261-462)
[2017-10-28] MEDS: Insulin Detemir 100 units/ml Vial (Levemir) SC SCH ×2 (08:44→22:26)
[2017-10-28] MEDS ORDERED: Albuterol-Ipratrop 3 mg / 0.5 (3 ml) UD IH PRN (09:17)
[2017-10-28] MEDS: levoFLOXacin 750 mg in D5W 750 MG/150 ML BAG IVPB SCH (10:08)
[2017-10-28] MEDS: guaiFENesin-DM 600-30 mg ER Tab PO SCH ×2 (10:08→17:16)
--- NOTE | 2017-10-28 10:21 | CP.PCM.CON ---
History of Present Illness - History of Present Illness History of Present Illness: 62 year old male with PMH of HIV on ART, COPD on home oxygen therapy, HTN, DM, history of pancreatitis came in to [facility] complaining of cough and SOB for the past 2-3 days. He was seen in the ED the other night and the patient was prescribed Z-bj and prednisone but the patient did not fill the prescriptions. He continued to have his symptoms which also included greenish phlegm, worsening cough, malaise. He denies fever or chills, no rhinorrhea, no sore throat, no headache or dizziness, no chest pain, no abdominal pain, no diarrhea , no dysuria. Infectious diseases consult is requested to further evaluate and manage. Review of Systems - Review of Systems All systems: reviewed and no additional remarkable complaints except (as per HPI ) Past Patient History - Infectious Disease Hx of Infectious Diseases: None - Tetanus Immunizations Tetanus Immunization: Unknown - Past Medical History & Family History Past Medical History?: Yes - Past Social History Smoking Status: Former Smoker - CARDIAC Hx Cardiac Disorders: Yes Hx Hypertension: Yes - PULMONARY Hx Respiratory Disorders: Yes Hx Chronic Obstructive Pulmonary Disease (COPD): Yes - NEUROLOGICAL Hx Neurological Disorder: No - HEENT Hx HEENT Problems: No - RENAL Hx Chronic Kidney Disease: No - ENDOCRINE/METABOLIC Hx Endocrine Disorders: Yes Hx Diabetes Mellitus Type 2: Yes - HEMATOLOGICAL/ONCOLOGICAL Hx Blood Disorders: Yes Hx Hepatitis A: Yes Hx Hepatitis B: Yes Hx Hepatitis C: Yes - INTEGUMENTARY Hx Dermatological Problems: No - MUSCULOSKELETAL/RHEUMATOLOGICAL Hx Musculoskeletal Disorders: No Hx Falls: No - GASTROINTESTINAL Hx Gastrointestinal Disorders: No - GENITOURINARY/GYNECOLOGICAL Hx Genitourinary Disorders: No - PSYCHIATRIC Hx Psychophysiologic Disorder: Yes Hx Anxiety: Yes Hx Substance Use: Yes - SURGICAL HISTORY Hx Orthopedic Surgery: Yes (RT KNEE) Other/Comment: comestic surgery to face post getting kicked in face by horse - ANESTHESIA Hx Anesthesia: Yes Hx Anesthesia Reactions: No Hx Malignant Hyperthermia: No Meds Allergies/Adverse Reactions: Allergies Allergy/AdvReac Type Severity Reaction Status Date / Time No Known Allergies Allergy Verified 10/27/17 13:55 - Medications Medications: Current Medications Abacavir Sulfate (Ziagen) 300 mg PO BID [facility] PRN Reason: Protocol Albuterol Sulfate (Albuterol 0.083% Inhal [place] (2.5 Mg/3 Ml) Ud) 2.5 mg IH [id number] PRN PRN Reason: SOB Alprazolam (Xanax) 0.25 mg PO TID AMAYA PRN Reason: Protocol Stop: 11/04/17 10:01 Famotidine (Pepcid) 20 mg PO DAILY [facility] Gabapentin (Neurontin) 300 mg PO TID AMAYA PRN Reason: Protocol Guaifenesin/Dextromethorphan (Mucinex-Dm 600-30 Mg) 1 tab PO BID [facility] Vancomycin HCl (Vancomycin 1gm) 1 gm in 250 mls @ 167 mls/hr IVPB Q12H [facility] PRN Reason: Protocol Last Admin: 10/27/17 17:37 Dose: Not Given Levofloxacin/Dextrose (Levaquin 750mg) 750 mg in 150 mls @ 100 mls/hr IVPB DAILY AMAYA PRN Reason: Protocol Stop: 11/03/17 10:00 Sodium Chloride (Sodium Chloride 0.9%) 1,000 mls @ 150 mls/hr IV .Q6H40M [facility] Insulin Human Regular (Humulin R Med) 0 units SC ACHS AMYAA PRN Reason: Protocol Montelukast Sodium (Singulair) 10 mg PO HS [facility] Non-Formulary Medication (Budesonide/Formoterol Fumarate [Symbicort 160-4.5 Mcg Inhaler]) 1 aer IH BID [facility] Non-Formulary Medication (Raltegravir Potassium [Isentress Hd]) 600 mg PO DAILY [facility] Physical Exam - Constitutional Appears: Non-toxic, Other (coughing intermittently) - Head Exam Head Exam: NORMAL INSPECTION - ENT Exam ENT Exam: Mucous Membranes Moist - Neck Exam Neck exam: Negative for: Lymphadenopathy, Meningismus - Respiratory Exam Respiratory Exam: Decreased Breath Sounds, Wheezes (scattered) - Cardiovascular Exam Cardiovascular Exam: +S1, +S2 - GI/Abdominal Exam GI & Abdominal Exam: Soft. absent: Tenderness Results - Vital Signs Recent Vital Signs: Last Vital Signs Temp 97.7 F 10/27/17 21:29 Pulse 93 H 10/27/17 22:00 Resp 18 10/27/17 21:29 BP 108/49 L 10/27/17 21:29 Pulse Ox 98 10/27/17 21:29 - Labs Result Diagrams: 10/28/17 06:00 10/28/17 06:00 Labs: Laboratory Results - last 24 hr 10/27/17 10/27/17 10/27/17 19:44 20:59 20:59 pCO2 pO2 36 HCO3 ABG pH ABG Total CO2 ABG O2 Saturation ABG Base Excess ABG Potassium VBG pH 7.29 L VBG pCO2 49.0 VBG HCO3 23.6 VBG Total CO2 25.1 VBG O2 Sat (Calc) 76.5 H VBG Base Excess -3.4 L VBG Potassium 4.4 Sodium 141.0 Chloride 108.0 H Glucose 289 H Lactate 4.9 H* FiO2 21.0 Lactic Acid 5.1 H* Arterial Blood Potassium Venous Blood Potassium 4.4 Urine Color Straw Urine Appearance Clear Urine pH 6.0 Ur Specific [place] 1.010 Urine Protein Negative Urine Glucose (UA) >=1000 Urine Ketones Negative Urine Blood Negative Urine Nitrate Negative Urine Bilirubin Negative Urine Urobilinogen 0.2 Ur Leukocyte Esterase Trace H Urine RBC Negative Urine WBC 0 - 2 Ur Epithelial Cells None Urine Bacteria Neg Urine Other Uyeast 10/27/17 22:29 pCO2 41 pO2 96.0 HCO3 23.2 ABG pH 7.36 ABG Total CO2 24.5 ABG O2 Saturation 99.7 H ABG Base Excess -2.2 L ABG Potassium 3.9 VBG pH VBG pCO2 VBG HCO3 VBG Total CO2 VBG O2 Sat (Calc) VBG Base Excess VBG Potassium Sodium 143.0 Chloride 112.0 H Glucose 288 H Lactate 3.0 H FiO2 28.0 Lactic Acid Arterial Blood Potassium 3.9 Venous Blood Potassium Urine Color Urine Appearance Urine pH Ur Specific [place] Urine Protein Urine Glucose (UA) Urine Ketones Urine Blood Urine Nitrate Urine Bilirubin Urine Urobilinogen Ur Leukocyte Esterase Urine RBC Urine WBC Ur Epithelial Cells Urine Bacteria Urine Other Assessment & Plan - Assessment and Plan (Free Text) Plan: Assessment Probable acute bronchitis with acute exacerbation of COPD chronic HIV infection on ART COPD on home oxygen therapy HTN DM history of pancreatitis Plan Started the patient on Levaquin and has been given Vancomycin and will follow up blood, sputum cx, PCT; reviewed CXR which does not show infiltrates - patient also started on systemic steroids and bronchodilator therapy will monitor clinically continue ART
[2017-10-28] MEDS: RALTEGRAVIR POTASSIUM 600 MG PO SCH ×2 (10:37→10:44)
[2017-10-28] MEDS: Non Formulary Medication (Budesonide/Formoterol Fumarate [Symbicort 160-4.5 Mcg Inhaler] 1 IH SCH ×2 (10:37→11:09)
--- NOTE | 2017-10-28 11:43 | CP.PCM.CON ---
History of Present Illness - History of Present Illness History of Present Illness: PULMONARY CONSULT NOTE HPI Patient is 62yo AAM, PMHX of HIV on HAART, COPD on home O2, DM, HTN, multiple hospitalizations prior for COPD exacerbations, hx of signing out AMA, re- presents to the ER yesterday after signing out AMA on 10/26, for SOB, cough, productive of green sputum. History obtained from the HnP, and documentation, as patient states he does not want to answer questions at the current time and "is very tired because of no sleep" No endorsed history of fever, chills, CP, palpitations, [place], dizziness. As per Chart: PMH: HIV, COPD, DM, HTN, pancreatitis Past surgical: cataracts Social history: Denies alcohol, recreational drug use former smoker 50pk years Allergies: NKDA Family history: None PMD: Dr. River CRUZ: refusing to answer Review of Systems - Review of Systems Review of Systems: refusing to answer Past Patient History - Infectious Disease Hx of Infectious Diseases: None - Tetanus Immunizations Tetanus Immunization: Unknown - Past Medical History & Family History Past Medical History?: Yes - Past Social History Smoking Status: Former Smoker - CARDIAC Hx Cardiac Disorders: Yes Hx Hypertension: Yes - PULMONARY Hx Respiratory Disorders: Yes Hx Chronic Obstructive Pulmonary Disease (COPD): Yes - NEUROLOGICAL Hx Neurological Disorder: No - HEENT Hx HEENT Problems: No - RENAL Hx Chronic Kidney Disease: No - ENDOCRINE/METABOLIC Hx Endocrine Disorders: Yes Hx Diabetes Mellitus Type 2: Yes - HEMATOLOGICAL/ONCOLOGICAL Hx Blood Disorders: Yes Hx Hepatitis A: Yes Hx Hepatitis B: Yes Hx Hepatitis C: Yes - INTEGUMENTARY Hx Dermatological Problems: No - MUSCULOSKELETAL/RHEUMATOLOGICAL Hx Musculoskeletal Disorders: No Hx Falls: No - GASTROINTESTINAL Hx Gastrointestinal Disorders: No - GENITOURINARY/GYNECOLOGICAL Hx Genitourinary Disorders: No - PSYCHIATRIC Hx Psychophysiologic Disorder: Yes Hx Anxiety: Yes Hx Substance Use: Yes - SURGICAL HISTORY Hx Orthopedic Surgery: Yes (RT KNEE) Other/Comment: comestic surgery to face post getting kicked in face by horse - ANESTHESIA Hx Anesthesia: Yes Hx Anesthesia Reactions: No Hx Malignant Hyperthermia: No Meds Allergies/Adverse Reactions: Allergies Allergy/AdvReac Type Severity Reaction Status Date / Time No Known Allergies Allergy Verified 10/27/17 13:55 - Medications Medications: Current Medications Abacavir Sulfate (Ziagen) 300 mg PO BID [facility] PRN Reason: Protocol Last Admin: 10/28/17 10:08 Dose: 300 mg Albuterol/Ipratropium (Duoneb 3 Mg/0.5 Mg (3 Ml) Ud) 3 ml IH Q2H PRN PRN Reason: Shortness of Breath Last Admin: 10/28/17 10:16 Dose: 3 ml Albuterol/Ipratropium (Duoneb 3 Mg/0.5 Mg (3 Ml) Ud) 3 ml IH [id number] [facility] Alprazolam (Xanax) 0.25 mg PO TID AMAYA PRN Reason: Protocol Stop: 11/04/17 10:01 Last Admin: 10/28/17 10:08 Dose: 0.25 mg Arformoterol Tartrate (Brovana) 15 mcg IH [id number] [facility] Last Admin: 10/28/17 07:39 Dose: 15 mcg Budesonide (Pulmicort Respules) 0.25 mg IH [id number] [facility] Last Admin: 10/28/17 07:39 Dose: 0.25 mg Dextrose (Dextrose 50% Inj) 50 ml IV STAT PRN; Protocol PRN Reason: Hypoglycemia Protocol Gabapentin (Neurontin) 300 mg PO TID AMAYA PRN Reason: Protocol Last Admin: 10/28/17 10:08 Dose: 300 mg Guaifenesin/Dextromethorphan (Mucinex-Dm 600-30 Mg) 1 tab PO BID [facility] Last Admin: 10/28/17 10:08 Dose: 1 tab Vancomycin HCl (Vancomycin 1gm) 1 gm in 250 mls @ 167 mls/hr IVPB Q12H [facility] PRN Reason: Protocol Last Admin: 10/28/17 05:15 Dose: Not Given Levofloxacin/Dextrose (Levaquin 750mg) 750 mg in 150 mls @ 100 mls/hr IVPB DAILY [facility] PRN Reason: Protocol Stop: 11/03/17 10:00 Last Admin: 10/28/17 10:08 Dose: 100 mls/hr Insulin Detemir (Levemir) 20 unit SC Q12H [facility] Last Admin: 10/28/17 08:44 Dose: 20 units Insulin Human Regular (Humulin R Med) 0 units SC ACHS [facility] PRN Reason: Protocol Last Admin: 10/28/17 08:30 Dose: 10 units Methylprednisolone (Solu-Medrol) 40 mg IVP Q8 [facility] Last Admin: 10/28/17 08:30 Dose: 40 mg Montelukast Sodium (Singulair) 10 mg PO HS [facility] Last Admin: 10/27/17 23:16 Dose: Not Given Raltegravir Potassium [Isentress Hd] 600 Mg) 600 mg PO DAILY [facility] Last Admin: 10/28/17 10:44 Dose: Not Given Non-Formulary Medication (Budesonide/Formoterol Fumarate [Symbicort 160-4.5 Mcg Inhaler]) 1 aer IH BID [facility] Pantoprazole Sodium (Protonix Ec Tab) 40 mg PO 0600 [facility] Physical Exam - Constitutional Appears: Non-toxic, No Acute Distress, Older Than Stated Age, Cachectic - Head Exam Head Exam: NORMAL INSPECTION - Eye Exam Eye Exam: Normal appearance - ENT Exam ENT Exam: Mucous Membranes Moist - Neck Exam Neck exam: Positive for: Full Rom - Respiratory Exam Respiratory Exam: Rhonchi, NORMAL BREATHING PATTERN - Cardiovascular Exam Cardiovascular Exam: REGULAR RHYTHM, +S1, +S2 - GI/Abdominal Exam GI & Abdominal Exam: Normal Bowel Sounds, Soft - Extremities Exam Extremities exam: Positive for: normal inspection Results - Vital Signs Recent Vital Signs: Last Vital Signs Temp 97.2 F L 10/28/17 06:00 Pulse 80 10/28/17 06:00 Resp 20 10/28/17 06:00 BP 132/87 10/28/17 06:00 Pulse Ox 100 10/28/17 06:00 - Labs Result Diagrams: 10/28/17 06:00 10/28/17 06:00 Labs: Laboratory Results - last 24 hr 10/27/17 10/27/17 10/27/17 19:44 20:59 20:59 WBC RBC Hgb Hct MCV MCH MCHC RDW Plt Count MPV Gran % Lymph % (Auto) [place] % (Auto) Eos % (Auto) Baso % (Auto) Gran # Lymph # (Auto) [place] # (Auto) Eos # (Auto) Baso # (Auto) Neutrophils % (Manual) Lymphocytes % (Manual) Monocytes % (Manual) Platelet Evaluation pCO2 pO2 36 HCO3 ABG pH ABG Total CO2 ABG O2 Saturation ABG Base Excess ABG Potassium VBG pH 7.29 L VBG pCO2 49.0 VBG HCO3 23.6 VBG Total CO2 25.1 VBG O2 Sat (Calc) 76.5 H VBG Base Excess -3.4 L VBG Potassium 4.4 Sodium 141.0 Chloride 108.0 H Glucose 289 H Lactate 4.9 H* FiO2 21.0 Potassium Carbon Dioxide Anion Gap BUN Creatinine Est GFR ( Amer) Est GFR (Non-Af Amer) POC Glucose (mg/dL) Random Glucose Lactic Acid 5.1 H* Calcium Phosphorus Magnesium Iron TIBC % Saturation Total Bilirubin AST ALT Alkaline Phosphatase Troponin I Total Protein Albumin Globulin Albumin/Globulin Ratio Arterial Blood Potassium Venous Blood Potassium 4.4 Urine Color Straw Urine Appearance Clear Urine pH 6.0 Ur Specific [place] 1.010 Urine Protein Negative Urine Glucose (UA) >=1000 Urine Ketones Negative Urine Blood Negative Urine Nitrate Negative Urine Bilirubin Negative Urine Urobilinogen 0.2 Ur Leukocyte Esterase Trace H Urine RBC Negative Urine WBC 0 - 2 Ur Epithelial Cells None Urine Bacteria Neg Urine Other Uyeast 10/27/17 10/27/17 10/28/17 21:00 22:29 06:00 WBC 8.7 RBC 3.20 L Hgb 8.7 L Hct 28.0 L MCV 87.5 MCH 27.2 MCHC 31.1 RDW 14.6 H Plt Count 207 MPV 8.8 Gran % 90.9 H Lymph % (Auto) 5.4 L [place] % (Auto) 3.7 Eos % (Auto) 0.0 L Baso % (Auto) 0.0 Gran # 7.92 H Lymph # (Auto) 0.5 L [place] # (Auto) 0.3 Eos # (Auto) 0.0 Baso # (Auto) 0.00 Neutrophils % (Manual) 97 H Lymphocytes % (Manual) 2 L Monocytes % (Manual) 1 Platelet Evaluation Normal pCO2 41 pO2 96.0 HCO3 23.2 ABG pH 7.36 ABG Total CO2 24.5 ABG O2 Saturation 99.7 H ABG Base Excess -2.2 L ABG Potassium 3.9 VBG pH VBG pCO2 VBG HCO3 VBG Total CO2 VBG O2 Sat (Calc) VBG Base Excess VBG Potassium Sodium 143.0 Chloride 112.0 H Glucose 288 H Lactate 3.0 H FiO2 28.0 Potassium Carbon Dioxide Anion Gap BUN Creatinine Est GFR ( Amer) Est GFR (Non-Af Amer) POC Glucose (mg/dL) 255 H Random Glucose Lactic Acid Calcium Phosphorus Magnesium Iron TIBC % Saturation Total Bilirubin AST ALT Alkaline Phosphatase Troponin I Total Protein Albumin Globulin Albumin/Globulin Ratio Arterial Blood Potassium 3.9 Venous Blood Potassium Urine Color Urine Appearance Urine pH Ur Specific [place] Urine Protein Urine Glucose (UA) Urine Ketones Urine Blood Urine Nitrate Urine Bilirubin Urine Urobilinogen Ur Leukocyte Esterase Urine RBC Urine WBC Ur Epithelial Cells Urine Bacteria Urine Other 10/28/17 10/28/17 10/28/17 06:00 07:00 07:00 WBC RBC Hgb Hct MCV MCH MCHC RDW Plt Count MPV Gran % Lymph % (Auto) [place] % (Auto) Eos % (Auto) Baso % (Auto) Gran # Lymph # (Auto) [place] # (Auto) Eos # (Auto) Baso # (Auto) Neutrophils % (Manual) Lymphocytes % (Manual) Monocytes % (Manual) Platelet Evaluation pCO2 pO2 HCO3 ABG pH ABG Total CO2 ABG O2 Saturation ABG Base Excess ABG Potassium VBG pH VBG pCO2 VBG HCO3 VBG Total CO2 VBG O2 Sat (Calc) VBG Base Excess VBG Potassium Sodium 143 Chloride 107 Glucose Lactate FiO2 Potassium 4.0 Carbon Dioxide 26 Anion Gap 14 BUN 27 H Creatinine 1.0 Est GFR ( Amer) > 60 Est GFR (Non-Af Amer) > 60 POC Glucose (mg/dL) Random Glucose 270 H Lactic Acid Calcium 8.6 Phosphorus 2.6 Magnesium 2.2 Iron 23 L TIBC 298 % Saturation 8 L Total Bilirubin 0.1 L AST 17 ALT 24 Alkaline Phosphatase 53 Troponin I < 0.01 Total Protein 5.9 Albumin 3.3 Globulin 2.6 Albumin/Globulin Ratio 1.3 Arterial Blood Potassium Venous Blood Potassium Urine Color Urine Appearance Urine pH Ur Specific [place] Urine Protein Urine Glucose (UA) Urine Ketones Urine Blood Urine Nitrate Urine Bilirubin Urine Urobilinogen Ur Leukocyte Esterase Urine RBC Urine WBC Ur Epithelial Cells Urine Bacteria Urine Other 10/28/17 10/28/17 07:34 08:34 WBC RBC Hgb Hct MCV MCH MCHC RDW Plt Count MPV Gran % Lymph % (Auto) [place] % (Auto) Eos % (Auto) Baso % (Auto) Gran # Lymph # (Auto) [place] # (Auto) Eos # (Auto) Baso # (Auto) Neutrophils % (Manual) Lymphocytes % (Manual) Monocytes % (Manual) Platelet Evaluation pCO2 pO2 HCO3 ABG pH ABG Total CO2 ABG O2 Saturation ABG Base Excess ABG Potassium VBG pH VBG pCO2 VBG HCO3 VBG Total CO2 VBG O2 Sat (Calc) VBG Base Excess VBG Potassium Sodium Chloride Glucose Lactate FiO2 Potassium Carbon Dioxide Anion Gap BUN Creatinine Est GFR ( Amer) Est GFR (Non-Af Amer) POC Glucose (mg/dL) 463 H* Random Glucose Lactic Acid 2.1 Calcium Phosphorus Magnesium Iron TIBC % Saturation Total Bilirubin AST ALT Alkaline Phosphatase Troponin I Total Protein Albumin Globulin Albumin/Globulin Ratio Arterial Blood Potassium Venous Blood Potassium Urine Color Urine Appearance Urine pH Ur Specific [place] Urine Protein Urine Glucose (UA) Urine Ketones Urine Blood Urine Nitrate Urine Bilirubin Urine Urobilinogen Ur Leukocyte Esterase Urine RBC Urine WBC Ur Epithelial Cells Urine Bacteria Urine Other - Imaging and Cardiology Chest x-ray Status: Image reviewed by me, Report reviewed by me Assessment & Plan - Assessment and Plan (Free Text) Assessment: 62yo male a/w SOB, COPD exacerbation Hypoxia, resolved COPD exacerbation SOB Cough - currently afebrile, BP stable, comfortable on 2LNC, sat 98%, ABG reviewed with adequate oxygenation - CXR without focal infiltrate - cont with Abx as per Quinton DILLON Levaquin - Solumedrol 40mg IV q12hr - Duonebs PRN - Symbicort BID - OOB to chair, PT eval - may benefit from pulmonary rehab - GI ppx - DVT ppx - Pulmonary will continue to follow
[2017-10-28 12:26] LABS: FERRITIN 22.8 ng/mL
[2017-10-28 12:55] LABS: FOLATE 11.5 ng/mL
--- NOTE | 2017-10-28 13:23 | CP.PCM.PN ---
<Lawson Cunningham - Last Filed: 10/28/17 15:31> Subjective - Date & Time of Evaluation Date of Evaluation: 10/28/17 Time of Evaluation: 13:20 - Subjective Subjective: Lawson Cunningham PGY-1 Medicine resident progress note for Dr. Rodriguez: Patient seen at bedside. Patient is complaining of shortness of breath and productive cough with green sputum. Patient denies having any chest pain, fever , chills, abdominal pain, diarrhea or vomiting. Objective - Vital Signs/Intake and Output Vital Signs (last 24 hours): Temp Pulse Resp BP Pulse Ox 97.1 F L 76 19 125/78 100 10/28/17 12:00 10/28/17 12:00 10/28/17 12:00 10/28/17 12:00 10/28/17 06:00 Intake and Output: 10/28/17 10/28/17 06:59 18:59 Intake Total 480 Output Total 550 Balance -70 - Medications Medications: Current Medications Abacavir Sulfate (Ziagen) 300 mg PO BID AMAYA PRN Reason: Protocol Last Admin: 10/28/17 10:08 Dose: 300 mg Albuterol/Ipratropium (Duoneb 3 Mg/0.5 Mg (3 Ml) Ud) 3 ml IH Q2H PRN PRN Reason: Shortness of Breath Last Admin: 10/28/17 10:16 Dose: 3 ml Albuterol/Ipratropium (Duoneb 3 Mg/0.5 Mg (3 Ml) Ud) 3 ml IH [id number] AMAYA Alprazolam (Xanax) 0.25 mg PO TID AMAYA PRN Reason: Protocol Stop: 11/04/17 10:01 Last Admin: 10/28/17 13:03 Dose: 0.25 mg Arformoterol Tartrate (Brovana) 15 mcg IH [id number] AMAYA Last Admin: 10/28/17 07:39 Dose: 15 mcg Budesonide (Pulmicort Respules) 0.25 mg IH [id number] AMAYA Last Admin: 10/28/17 07:39 Dose: 0.25 mg Dextrose (Dextrose 50% Inj) 50 ml IV STAT PRN; Protocol PRN Reason: Hypoglycemia Protocol Gabapentin (Neurontin) 300 mg PO TID AMAYA PRN Reason: Protocol Last Admin: 10/28/17 13:02 Dose: 300 mg Guaifenesin/Dextromethorphan (Mucinex-Dm 600-30 Mg) 1 tab PO BID [facility] Last Admin: 10/28/17 10:08 Dose: 1 tab Vancomycin HCl (Vancomycin 1gm) 1 gm in 250 mls @ 167 mls/hr IVPB Q12H AMAYA PRN Reason: Protocol Last Admin: 10/28/17 05:15 Dose: Not Given Levofloxacin/Dextrose (Levaquin 750mg) 750 mg in 150 mls @ 100 mls/hr IVPB DAILY [facility] PRN Reason: Protocol Stop: 11/03/17 10:00 Last Admin: 10/28/17 10:08 Dose: 100 mls/hr Insulin Detemir (Levemir) 20 unit SC Q12H [facility] Last Admin: 10/28/17 08:44 Dose: 20 units Insulin Human Regular (Humulin R Med) 0 units SC ACHS [facility] PRN Reason: Protocol Last Admin: 10/28/17 12:49 Dose: 3 units Methylprednisolone (Solu-Medrol) 40 mg IVP Q8 [facility] Last Admin: 10/28/17 13:02 Dose: 40 mg Montelukast Sodium (Singulair) 10 mg PO HS [facility] Last Admin: 10/27/17 23:16 Dose: Not Given Raltegravir Potassium [Isentress Hd] 600 Mg) 600 mg PO DAILY [facility] Last Admin: 10/28/17 10:44 Dose: Not Given Pantoprazole Sodium (Protonix Ec Tab) 40 mg PO 0600 [facility] - Labs Labs: 10/28/17 06:00 10/28/17 06:00 PT 11.2 SECONDS (9.4-12.5) 10/27/17 14:32 INR 0.98 (0.93-1.08) 10/27/17 14:32 APTT 23.0 Seconds (25.1-36.5) L 10/27/17 14:32 - Constitutional Appears: No Acute Distress - Head Exam Head Exam: ATRAUMATIC, NORMAL INSPECTION - Eye Exam Eye Exam: Normal appearance Pupil Exam: NORMAL ACCOMODATION, PERRL - ENT Exam ENT Exam: Mucous Membranes Moist - Neck Exam Neck Exam: Full ROM, Normal Inspection. absent: Lymphadenopathy - Respiratory Exam Respiratory Exam: Decreased Breath Sounds, Wheezes. absent: Accessory Muscle Use, Respiratory Distress - Cardiovascular Exam Cardiovascular Exam: REGULAR RHYTHM, +S1, +S2. absent: Murmur - GI/Abdominal Exam GI & Abdominal Exam: Soft, Normal Bowel Sounds. absent: Tenderness - Extremities Exam Extremities Exam: Full ROM, Normal Capillary Refill, Normal Inspection. absent : Joint Swelling, Pedal Edema - Back Exam Back Exam: NORMAL INSPECTION - Neurological Exam Neurological Exam: Alert, Awake, Oriented x3 - Psychiatric Exam Psychiatric exam: Normal Affect, Normal Mood - Skin Skin Exam: Dry, Intact, Normal Color, Warm Assessment and Plan - Assessment and Plan (Free Text) Assessment: 62 year old male with a past medical history of HIV on MILLER, COPD, Hepatitis C, pancreatitis, and DM II who presents with shortness of breath. Code sepsis was called in the ED. Plan: Shortness of breath - Most likely due to COPD exacerbation, need to rule out PE - Started Duonebs q4h AMAYA, Duonebs q2h PRN, Solumedrol 40 mg IVP q8h AMAYA, Mucinex 600-30 DM BID - Oxygen 2L NC titrate 92-94% - Monteleukast 10 mg - ID consulted - Started IV Levaquin and Vancomycin as per ID - Blood and sputum cultures pending - CXR showed no active disease. - Pulmonology consulted, continue current treatment and recommended patient to go to respiratory rehab. DM II with peripheral neuropathy - Started ISS and Levemir - ACHS - Gabapentin 300 mg TID HIV on MILLER therapy - c/w Abacavir 300 mg BID, Raltegravir 600 mg PO daily DVT/GI prophylaxis - SCD's - Protonix 40 mg PO daily Case reviewed and discussed with attending physician, Dr. Rodriguez <Dulce Rodriguez - Last Filed: 10/28/17 16:10> Objective - Vital Signs/Intake and Output Vital Signs (last 24 hours): Temp Pulse Resp BP Pulse Ox 97.1 F L 85 19 125/78 100 10/28/17 12:00 10/28/17 14:00 10/28/17 12:00 10/28/17 12:00 10/28/17 06:00 Intake and Output: 10/28/17 10/28/17 06:59 18:59 Intake Total 480 Output Total 550 Balance -70 - Medications Medications: Current Medications Abacavir Sulfate (Ziagen) 300 mg PO BID [facility]MAYA PRN Reason: Protocol Last Admin: 10/28/17 10:08 Dose: 300 mg Albuterol/Ipratropium (Duoneb 3 Mg/0.5 Mg (3 Ml) Ud) 3 ml IH Q2H PRN PRN Reason: Shortness of Breath Last Admin: 10/28/17 10:16 Dose: 3 ml Albuterol/Ipratropium (Duoneb 3 Mg/0.5 Mg (3 Ml) Ud) 3 ml IH [id number] [facility] Last Admin: 10/28/17 14:07 Dose: 3 ml Alprazolam (Xanax) 0.25 mg PO TID AMAYA PRN Reason: Protocol Stop: 11/04/17 10:01 Last Admin: 10/28/17 13:03 Dose: 0.25 mg Arformoterol Tartrate (Brovana) 15 mcg IH [id number] [facility] Last Admin: 10/28/17 07:39 Dose: 15 mcg Budesonide (Pulmicort Respules) 0.25 mg IH [id number] [facility] Last Admin: 10/28/17 07:39 Dose: 0.25 mg Dextrose (Dextrose 50% Inj) 50 ml IV STAT PRN; Protocol PRN Reason: Hypoglycemia Protocol Enoxaparin Sodium (Lovenox) 40 mg SC DAILY [facility] PRN Reason: Protocol Gabapentin (Neurontin) 300 mg PO TID AMAYA PRN Reason: Protocol Last Admin: 10/28/17 13:02 Dose: 300 mg Guaifenesin/Dextromethorphan (Mucinex-Dm 600-30 Mg) 1 tab PO BID [facility] Last Admin: 10/28/17 10:08 Dose: 1 tab Vancomycin HCl (Vancomycin 1gm) 1 gm in 250 mls @ 167 mls/hr IVPB Q12H [facility] PRN Reason: Protocol Last Admin: 10/28/17 15:38 Dose: 167 mls/hr Levofloxacin/Dextrose (Levaquin 750mg) 750 mg in 150 mls @ 100 mls/hr IVPB DAILY [facility] PRN Reason: Protocol Stop: 11/03/17 10:00 Last Admin: 10/28/17 10:08 Dose: 100 mls/hr Insulin Detemir (Levemir) 20 unit SC Q12H [facility] Last Admin: 10/28/17 08:44 Dose: 20 units Insulin Human Regular (Humulin R Med) 0 units SC ACHS [facility] PRN Reason: Protocol Last Admin: 10/28/17 12:49 Dose: 3 units Methylprednisolone (Solu-Medrol) 40 mg IVP Q8 [facility] Last Admin: 10/28/17 13:02 Dose: 40 mg Montelukast Sodium (Singulair) 10 mg PO HS [facility] Last Admin: 10/27/17 23:16 Dose: Not Given Raltegravir Potassium [Isentress Hd] 600 Mg) 600 mg PO DAILY [facility] Last Admin: 10/28/17 10:44 Dose: Not Given Pantoprazole Sodium (Protonix Ec Tab) 40 mg PO 0600 [facility] - Labs Labs: 10/28/17 06:00 10/28/17 06:00 PT 11.2 SECONDS (9.4-12.5) 10/27/17 14:32 INR 0.98 (0.93-1.08) 10/27/17 14:32 APTT 23.0 Seconds (25.1-36.5) L 10/27/17 14:32 Attending/Attestation - Attestation I have personally seen and examined this patient.: Yes I have fully participated in the care of the patient.: Yes I have reviewed all pertinent clinical information, including history, physical exam and plan: Yes Notes (Text): 10/28/17 16:08 Attending note; Patient seen and examined with resident. Patient is a 62 year old male with a past medical history of HIV, COPD, home oxygen dependent, history of opiate abuse, Hepatitis C, pancreatitis, and DM II who presents with acute bronchitis and COPD exacerbation. Chest x-ray is negative for infiltrate. Currently tachycardia, hypoxemia resolved. Lactic acidosis resolved. Continue DuoNeb, IV Solu-Medrol. Continue IV vancomycin and Zosyn. Pulmonary evaluation appreciated. Sepsis is resolving. HIV; continue above Abacavir and isentress. ID evaluation appreciated. DVT and GI prophylaxis. Prognosis is poor secondary to noncompliance with follow-up. Monitor patient closely. Upon discharge the patient will follow up with PMD Dr. Lan. 10/28/17 16:10
[2017-10-28] MEDS: Albuterol-Ipratrop 3 mg / 0.5 (3 ml) UD IH SCH ×2 (14:07→19:30)
[2017-10-28] MEDS: Enoxaparin 40 mg Syringe SC SCH ×2 (17:16→17:20)
[2017-10-28] MEDS ORDERED: Non Formulary Medication (Budesonide/Formoterol Fumarate [Symbicort 160-4.5 Mcg Inhaler] 1 IH SCH (18:00)
[2017-10-29 00:43] VITALS: BP 140/100; RESP 20; TEMP 98
[2017-10-29] MEDS: MethylPREDNISolone 40 mg Vial IVP SCH (04:59)
[2017-10-29] MEDS: Vancomycin 1gm in NS 250ml 1 GM/250 ML BAG IVPB SCH (05:00)
[2017-10-29] MEDS ORDERED: Pantoprazole 40 mg EC Tab PO SCH (06:00)
[2017-10-29 06:01] VITALS: PULSE 55
[2017-10-29 07:08] LABS: GRAN # 9.44 (1.4-6.5); HEMOGLOBIN 8.7 g/dL (14.0-18.0); LYMPH # 0.5 (1.2-3.4); LYMPH % 4.7 % (22.0-35.0); MEAN CELL VOLUME 86.3 fl (80.0-105.0); MEAN CORPUSCULAR HGB CONC 31.3 g/dl (31.0-37.0); MONO # 0.2 (0.1-0.6); MONO % 2.3 % (1.0-6.0); RBC 3.22 10^6/uL (3.5-6.1); RED CELL DISTRIBUTION WIDTH 14.4 % (11.5-14.5); WHITE BLOOD COUNT 10.2 10^3/ul (4.5-11.0)
[2017-10-29] MEDS: Arformoterol 15 mcg/2 ml Inh Sol IH SCH (08:01)
[2017-10-29] MEDS: Budesonide 0.25 mg/2 ml Inhal Susp UD IH SCH (08:01)
[2017-10-29] MEDS: Albuterol-Ipratrop 3 mg / 0.5 (3 ml) UD IH SCH (08:01)
[2017-10-29] MEDS: Insulin Reg-MEDIUM-Coverage SC SCH (08:08)
[2017-10-29] MEDS: guaiFENesin-DM 600-30 mg ER Tab PO SCH (09:33)
[2017-10-29] MEDS: Insulin Detemir 100 units/ml Vial (Levemir) SC SCH (09:34)
[2017-10-29] MEDS: levoFLOXacin 750 mg in D5W 750 MG/150 ML BAG IVPB SCH (09:34)
[2017-10-29] MEDS: Enoxaparin 40 mg Syringe SC SCH (09:43)
[2017-10-29] MEDS: RALTEGRAVIR POTASSIUM 600 MG PO SCH (09:43)
--- NOTE | 2017-10-29 10:08 | CP.PCM.PN ---
Subjective - Date & Time of Evaluation Date of Evaluation: 10/29/17 Time of Evaluation: 08:35 - Subjective Subjective: Patient is found to be breathing heavy on a chair but not in distress, able to talk in short sentences, no fevers overnight. Objective - Vital Signs/Intake and Output Vital Signs (last 24 hours): Temp Pulse Resp BP Pulse Ox 98.0 F 55 L 20 140/100 H 100 10/29/17 00:01 10/29/17 06:00 10/29/17 00:01 10/29/17 00:01 10/29/17 00:01 Intake and Output: 10/28/17 10/29/17 18:59 06:59 Intake Total 1450 Output Total 1575 Balance -125 - Medications Medications: Current Medications Abacavir Sulfate (Ziagen) 300 mg PO BID AMAYA PRN Reason: Protocol Last Admin: 10/28/17 17:16 Dose: 300 mg Albuterol/Ipratropium (Duoneb 3 Mg/0.5 Mg (3 Ml) Ud) 3 ml IH Q2H PRN PRN Reason: Shortness of Breath Last Admin: 10/28/17 10:16 Dose: 3 ml Albuterol/Ipratropium (Duoneb 3 Mg/0.5 Mg (3 Ml) Ud) 3 ml IH [id number] [facility] Last Admin: 10/28/17 19:30 Dose: 3 ml Alprazolam (Xanax) 0.25 mg PO TID AMAYA PRN Reason: Protocol Stop: 11/04/17 10:01 Last Admin: 10/28/17 17:16 Dose: 0.25 mg Arformoterol Tartrate (Brovana) 15 mcg IH [id number] [facility] Last Admin: 10/28/17 19:30 Dose: 15 mcg Budesonide (Pulmicort Respules) 0.25 mg IH [id number] [facility] Last Admin: 10/28/17 19:29 Dose: 0.25 mg Dextrose (Dextrose 50% Inj) 50 ml IV STAT PRN; Protocol PRN Reason: Hypoglycemia Protocol Enoxaparin Sodium (Lovenox) 40 mg SC DAILY [facility] PRN Reason: Protocol Last Admin: 10/28/17 17:20 Dose: Not Given Gabapentin (Neurontin) 300 mg PO TID AMAYA PRN Reason: Protocol Last Admin: 10/28/17 17:16 Dose: 300 mg Guaifenesin/Dextromethorphan (Mucinex-Dm 600-30 Mg) 1 tab PO BID [facility] Last Admin: 10/28/17 17:16 Dose: 1 tab Vancomycin HCl (Vancomycin 1gm) 1 gm in 250 mls @ 167 mls/hr IVPB Q12H [facility] PRN Reason: Protocol Last Admin: 10/29/17 05:00 Dose: 167 mls/hr Levofloxacin/Dextrose (Levaquin 750mg) 750 mg in 150 mls @ 100 mls/hr IVPB DAILY [facility] PRN Reason: Protocol Stop: 11/03/17 10:00 Last Admin: 10/28/17 10:08 Dose: 100 mls/hr Insulin Detemir (Levemir) 20 unit SC Q12H [facility] Last Admin: 10/28/17 22:26 Dose: 20 units Insulin Human Regular (Humulin R Med) 0 units SC ACHS [facility] PRN Reason: Protocol Last Admin: 10/28/17 22:26 Dose: 2 units Methylprednisolone (Solu-Medrol) 40 mg IVP Q8 [facility] Last Admin: 10/29/17 04:59 Dose: 40 mg Montelukast Sodium (Singulair) 10 mg PO HS [facility] Last Admin: 10/28/17 22:32 Dose: Not Given Raltegravir Potassium [Isentress Hd] 600 Mg) 600 mg PO DAILY [facility] Last Admin: 10/28/17 10:44 Dose: Not Given Pantoprazole Sodium (Protonix Ec Tab) 40 mg PO 0600 [facility] Last Admin: 10/29/17 04:59 Dose: 40 mg - Labs Labs: 10/28/17 06:00 10/28/17 06:00 PT 11.2 SECONDS (9.4-12.5) 10/27/17 14:32 INR 0.98 (0.93-1.08) 10/27/17 14:32 APTT 23.0 Seconds (25.1-36.5) L 10/27/17 14:32 - Constitutional Appears: Chronically Ill - ENT Exam ENT Exam: Mucous Membranes Moist - Neck Exam Neck Exam: absent: Lymphadenopathy, Meningismus - Respiratory Exam Respiratory Exam: Decreased Breath Sounds, Prolonged Expiratory Phase, Wheezes - Cardiovascular Exam Cardiovascular Exam: +S1, +S2 - GI/Abdominal Exam GI & Abdominal Exam: Soft. absent: Tenderness Assessment and Plan - Assessment and Plan (Free Text) Plan: Assessment Probable acute bronchitis with acute exacerbation of COPD chronic HIV infection on ART COPD on home oxygen therapy HTN DM history of pancreatitis Plan continue Levaquin, Vancomycin and add Cefepime; cultures have been negative but PCT is elevated at 0.85 although reviewed CXR which does not show infiltrates ( therefore adding Cefepime) patient also on systemic steroids and bronchodilator therapy continue ART
[2017-10-29] MEDS ORDERED: Cefepime 1gm in NS 100ml 1 GM/100 ML BAG IVPB SCH (10:15)
--- NOTE | 2017-10-29 12:50 | CP.PCM.DIS ---
Addendum entered and electronically signed by Lawson Cunningham 10/30/17 10:40: Patient left AMA and instructed to take new medications: Levaquin and medrol dose pack. He was also instructed to continue taking his home medications: MILLER medications for HIV. Duonebs, solumedrol, mucinex, singulair, symbicort, and ventolin prn for his COPD. Valsartan and amlodipine for his hypertension. Original Note: <Lawson Cunningham - Last Filed: 10/29/17 21:22> Provider - Provider Date of Admission: 10/27/17 16:22 Attending physician: Dulce Rodriguez MD Primary care physician: Ravi Lan MD Time Spent in preparation of Discharge (in minutes): 45 Diagnosis - Discharge Diagnosis (1) COPD with acute exacerbation Status: Acute Priority: High (2) History of diabetes mellitus Status: Chronic Priority: Medium (3) Peripheral neuropathy Status: Acute Priority: Medium (4) HIV (human immunodeficiency virus infection) Status: Chronic Priority: High Hospital Course - Lab Results Lab Results: Micro Results 10/28/17 03:55 Urine,Clean Catch Urine Culture - Final No Growth (<1,000 CFU/ML) Most Recent Lab Values WBC 10.2 10^3/ul (4.5-11.0) 10/29/17 06:40 RBC 3.22 10^6/uL (3.5-6.1) L 10/29/17 06:40 Hgb 8.7 g/dL (14.0-18.0) L 10/29/17 06:40 Hct 27.8 % (42.0-52.0) L 10/29/17 06:40 MCV 86.3 fl (80.0-105.0) 10/29/17 06:40 MCH 27.0 pg (25.0-35.0) 10/29/17 06:40 MCHC 31.3 g/dl (31.0-37.0) 10/29/17 06:40 RDW 14.4 % (11.5-14.5) 10/29/17 06:40 Plt Count 199 10^3/uL (120.0-450.0) 10/29/17 06:40 MPV 9.0 fl (7.0-11.0) 10/29/17 06:40 Gran % 93.0 % (50.0-68.0) H 10/29/17 06:40 Lymph % (Auto) 4.7 % (22.0-35.0) L 10/29/17 06:40 [place] % (Auto) 2.3 % (1.0-6.0) 10/29/17 06:40 Eos % (Auto) 0.0 % (1.5-5.0) L 10/29/17 06:40 Baso % (Auto) 0.0 % (0.0-3.0) 10/29/17 06:40 Gran # 9.44 (1.4-6.5) H 10/29/17 06:40 Lymph # (Auto) 0.5 (1.2-3.4) L 10/29/17 06:40 [place] # (Auto) 0.2 (0.1-0.6) 10/29/17 06:40 Eos # (Auto) 0.0 (0.0-0.7) 10/29/17 06:40 Baso # (Auto) 0.00 K/mm3 (0.0-2.0) 10/29/17 06:40 Neutrophils % (Manual) 97 % (50.0-70.0) H 10/28/17 06:00 Lymphocytes % (Manual) 2 % (22.0-35.0) L 10/28/17 06:00 Monocytes % (Manual) 1 % (1.0-6.0) 10/28/17 06:00 Platelet Evaluation Normal (NORMAL) 10/28/17 06:00 PT 11.2 SECONDS (9.4-12.5) 10/27/17 14:32 INR 0.98 (0.93-1.08) 10/27/17 14:32 APTT 23.0 Seconds (25.1-36.5) L 10/27/17 14:32 pCO2 41 mm/Hg (35-45) 10/27/17 22:29 pO2 96.0 mm/Hg (80-100) 10/27/17 22:29 HCO3 23.2 mmol/L (21-28) 10/27/17 22:29 ABG pH 7.36 (7.35-7.45) 10/27/17 22:29 ABG Total CO2 24.5 mmol.L (22-28) 10/27/17 22:29 ABG O2 Saturation 99.7 % (95-98) H 10/27/17 22:29 ABG Base Excess -2.2 mmol/L (-2.0-3.0) L 10/27/17 22:29 ABG Potassium 3.9 mmol/L (3.6-5.2) 10/27/17 22:29 VBG pH 7.29 (7.32-7.43) L 10/27/17 20:59 VBG pCO2 49.0 (40-60) 10/27/17 20:59 VBG HCO3 23.6 mmol/l (21-28) 10/27/17 20:59 VBG Total CO2 25.1 mmol.L (22-28) 10/27/17 20:59 VBG O2 Sat (Calc) 76.5 % (40-65) H 10/27/17 20:59 VBG Base Excess -3.4 mmol/L (0.0-2.0) L 10/27/17 20:59 VBG Potassium 4.4 mmol/L (3.6-5.2) 10/27/17 20:59 Sodium 143.0 mmol/L (132-148) 10/27/17 22: Chloride 112.0 mmol/L (98-107) H 10/27/17 22:29 Glucose 288 mg/dl (75-110) H 10/27/17 22:29 Lactate 3.0 mmol/L (0.7-2.1) H 10/27/17 22:29 FiO2 28.0 % 10/27/17 22:29 Sodium 143 mmol/L (132-148) 10/28/17 06:00 Potassium 4.0 mmol/L (3.6-5.0) 10/28/17 06:00 Chloride 107 mmol/L (98-107) 10/28/17 06:00 Carbon Dioxide 26 mmol/L (21-33) 10/28/17 06:00 Anion Gap 14 (10-20) 10/28/17 06:00 BUN 27 mg/dL (7-21) H 10/28/17 06:00 Creatinine 1.0 mg/dl (0.8-1.5) 10/28/17 06:00 Est GFR ( Amer) > 60 10/28/17 06:00 Est GFR (Non-Af Amer) > 60 10/28/17 06:00 POC Glucose (mg/dL) 171 mg/dL (65-110) H 10/29/17 07:46 Random Glucose 270 mg/dL (70-110) H 10/28/17 06:00 Hemoglobin A1c 9.8 % (4.2-6.5) H 10/28/17 06:00 Lactic Acid 2.1 mmol/L (0.7-2.1) 10/28/17 08:34 Calcium 8.6 mg/dL (8.4-10.5) 10/28/17 06:00 Phosphorus 2.6 mg/dL (2.5-4.5) 10/28/17 06:00 Magnesium 2.2 mg/dL (1.7-2.2) 10/28/17 06:00 Iron 23 ug/dL (45-180) L 10/28/17 07:00 TIBC 298 ug/dL (261-462) 10/28/17 07:00 % Saturation 8 % (20-55) L 10/28/17 07:00 Ferritin 22.8 ng/mL 10/28/17 07:00 Total Bilirubin 0.1 mg/dL (0.2-1.3) L 10/28/17 06:00 AST 17 U/L (17-59) 10/28/17 06:00 ALT 24 U/L (7-56) 10/28/17 06:00 Alkaline Phosphatase 53 U/L (38-126) 10/28/17 06:00 Lactate Dehydrogenase 547 U/L (333-699) 10/27/17 14:32 Total Creatine Kinase 29 U/L (35-230) L 10/27/17 14:32 Troponin I < 0.01 ng/mL 10/28/17 07:00 NT-Pro-B Natriuret Pep 60.0 pg/mL (0-450) 10/27/17 14:32 Total Protein 5.9 g/dL (5.8-8.3) 10/28/17 06:00 Albumin 3.3 g/dL (3.0-4.8) 10/28/17 06:00 Globulin 2.6 gm/dL 10/28/17 06:00 Albumin/Globulin Ratio 1.3 (1.1-1.8) 10/28/17 06:00 Amylase 121 U/L (35-125) 10/27/17 14:32 Lipase 207 U/L (23-300) 10/27/17 14:32 Vitamin B12 354 pg/mL (239-931) 10/28/17 07:00 Folate 11.5 ng/mL 10/28/17 07:00 Procalcitonin 0.85 NG/ML (0.19-0.49) H 10/27/17 20:33 Arterial Blood Potassium 3.9 mmol/L (3.6-5.2) 10/27/17 22:29 Venous Blood Potassium 4.4 mmol/L (3.6-5.2) 10/27/17 20:59 Urine Color Straw (YELLOW) 10/27/17 19:44 Urine Appearance Clear (CLEAR) 10/27/17 19:44 Urine pH 6.0 (4.7-8.0) 10/27/17 19:44 Ur Specific [place] 1.010 (1.005-1.035) 10/27/17 19:44 Urine Protein Negative mg/dL (<30 mg/dL) 10/27/17 19:44 Urine Glucose (UA) >=1000 mg/dL (NEGATIVE) 10/27/17 19:44 Urine Ketones Negative mg/dL (NEGATIVE) 10/27/17 19:44 Urine Blood Negative (NEGATIVE) 10/27/17 19:44 Urine Nitrate Negative (NEGATIVE) 10/27/17 19:44 Urine Bilirubin Negative (NEGATIVE) 10/27/17 19:44 Urine Urobilinogen 0.2 E.U./dL (<1 E.U./dL) 10/27/17 19:44 Ur Leukocyte Esterase Trace Nash/uL (NEGATIVE) H 10/27/17 19:44 Urine RBC Negative /hpf (0-2) 10/27/17 19:44 Urine WBC 0 - 2 /hpf (0-6) 10/27/17 19:44 Ur Epithelial Cells None /hpf (0-5) 10/27/17 19:44 Urine Bacteria Neg (NEG) 10/27/17 19:44 Urine Other Uyeast 10/27/17 19:44 Alcohol, Quantitative < 10 mg/dL (0-10) 10/27/17 14:32 Influenza Typ A,B (EIA) Negative for flu a/b (NEGATIVE) 10/27/17 14:32 - Hospital Course Hospital Course: Mr. Gao is a 62 year old male with a past medical history of HIV on MILLER therapy, hepatitis, COPD on home O2, pancreatitis, and DM II who came to the ED with shortness of breath and non-productive cough. A code sepsis was called in the ED and vancomycin was given in the ED. Patient was admitted for similar complaints on 10/25 and left AMA on 10/26. 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 He was then admitted on 10/27 for workup and management of acute exacerbation of COPD. Patient was treated with duonebs, solumedrol, mucinex, oxygen 2L NC, montelukast, and levaquin. During the course of his hospital stay, he underwent chest x-ray and EKG. Chest xray showed no active pulmonary disease, EKG showed sinus tachycardia with heart rate of 108. Infectious disease (Dr. Tracy) and pulmonology (Dr. Stanley) were consulted in the management and treatment of the patient. Infectious disease treated the patient with IV levaquin, vancomycin, and cefepime in addition to patient's MILLER medications. Pulmonology recommended continuing antibiotics, solumedrol, duonebs, and symbicort. On 10/29, patient signed out AMA. Risks and benefits were thoroughly discussed with patient. All questions and concerns were addressed. Patient was given prescription for levaquin and was instructed to also garbage pick up worker his medrol dose pack. He was educated on the importance of picking up his medications and to be compliant with taking them to avoid future episodes of exacerbations. 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 Patient further informed to return to the ED for worsening of symptoms. Discharge Exam - Head Exam Head Exam: ATRAUMATIC, NORMAL INSPECTION - Eye Exam Eye Exam: Normal appearance - ENT Exam ENT Exam: Mucous Membranes Moist - Respiratory Exam Respiratory Exam: Clear to PA & Lateral. absent: Rales, Rhonchi, Wheezes - Cardiovascular Exam Cardiovascular Exam: REGULAR RHYTHM, +S1, +S2. absent: Gallop, Rubs, Systolic Murmur - GI/Abdominal Exam GI & Abdominal Exam: Normal Bowel Sounds, Soft. absent: Tenderness - Extremities Exam Extremities exam: tenderness Additional comments: Leg is tender on palpation due to his diabetic neuropathy. No pedal edema. - Neurological Exam Neurological exam: Alert, Oriented x3 - Psychiatric Exam Psychiatric exam: Normal Affect, Normal Mood - Skin Skin Exam: Dry, Normal Color, Warm Discharge Plan - Discharge Medications Prescriptions: levoFLOXacin [Levaquin] 750 mg PO DAILY 4 Days tab - Follow Up Plan Condition: SERIOUS Disposition: AGAINST MEDICAL ADVICE Referrals: Ravi Lan MD [Primary Care Provider] - <Dulce Rodriguez - Last Filed: 10/30/17 14:16> Provider - Provider Date of Admission: 10/27/17 16:22 Attending physician: Dulce Rodriguez MD Primary care physician: Ravi Lan MD Hospital Course - Lab Results Lab Results: Micro Results 10/28/17 03:55 Urine,Clean Catch Urine Culture - Final No Growth (<1,000 CFU/ML) Most Recent Lab Values WBC 10.2 10^3/ul (4.5-11.0) 10/29/17 06:40 RBC 3.22 10^6/uL (3.5-6.1) L 10/29/17 06:40 Hgb 8.7 g/dL (14.0-18.0) L 10/29/17 06:40 Hct 27.8 % (42.0-52.0) L 10/29/17 06:40 MCV 86.3 fl (80.0-105.0) 10/29/17 06:40 MCH 27.0 pg (25.0-35.0) 10/29/17 06:40 MCHC 31.3 g/dl (31.0-37.0) 10/29/17 06:40 RDW 14.4 % (11.5-14.5) 10/29/17 06:40 Plt Count 199 10^3/uL (120.0-450.0) 10/29/17 06:40 MPV 9.0 fl (7.0-11.0) 10/29/17 06:40 Gran % 93.0 % (50.0-68.0) H 10/29/17 06:40 Lymph % (Auto) 4.7 % (22.0-35.0) L 10/29/17 06:40 [place] % (Auto) 2.3 % (1.0-6.0) 10/29/17 06:40 Eos % (Auto) 0.0 % (1.5-5.0) L 10/29/17 06:40 Baso % (Auto) 0.0 % (0.0-3.0) 10/29/17 06:40 Gran # 9.44 (1.4-6.5) H 10/29/17 06:40 Lymph # (Auto) 0.5 (1.2-3.4) L 10/29/17 06:40 [place] # (Auto) 0.2 (0.1-0.6) 10/29/17 06:40 Eos # (Auto) 0.0 (0.0-0.7) 10/29/17 06:40 Baso # (Auto) 0.00 K/mm3 (0.0-2.0) 10/29/17 06:40 Neutrophils % (Manual) 97 % (50.0-70.0) H 10/28/17 06:00 Lymphocytes % (Manual) 2 % (22.0-35.0) L 10/28/17 06:00 Monocytes % (Manual) 1 % (1.0-6.0) 10/28/17 06:00 Platelet Evaluation Normal (NORMAL) 10/28/17 06:00 PT 11.2 SECONDS (9.4-12.5) 10/27/17 14:32 INR 0.98 (0.93-1.08) 10/27/17 14:32 APTT 23.0 Seconds (25.1-36.5) L 10/27/17 14:32 pCO2 41 mm/Hg (35-45) 10/27/17 22:29 pO2 96.0 mm/Hg (80-100) 10/27/17 22:29 HCO3 23.2 mmol/L (21-28) 10/27/17 22:29 ABG pH 7.36 (7.35-7.45) 10/27/17 22:29 ABG Total CO2 24.5 mmol.L (22-28) 10/27/17 22:29 ABG O2 Saturation 99.7 % (95-98) H 10/27/17 22:29 ABG Base Excess -2.2 mmol/L (-2.0-3.0) L 10/27/17 22:29 ABG Potassium 3.9 mmol/L (3.6-5.2) 10/27/17 22:29 VBG pH 7.29 (7.32-7.43) L 10/27/17 20:59 VBG pCO2 49.0 (40-60) 10/27/17 20:59 VBG HCO3 23.6 mmol/l (21-28) 10/27/17 20:59 VBG Total CO2 25.1 mmol.L (22-28) 10/27/17 20:59 VBG O2 Sat (Calc) 76.5 % (40-65) H 10/27/17 20:59 VBG Base Excess -3.4 mmol/L (0.0-2.0) L 10/27/17 20:59 VBG Potassium 4.4 mmol/L (3.6-5.2) 10/27/17 20:59 Sodium 143.0 mmol/L (132-148) 10/27/17 22:29 Chloride 112.0 mmol/L (98-107) H 10/27/17 22:29 Glucose 288 mg/dl (75-110) H 10/27/17 22:29 Lactate 3.0 mmol/L (0.7-2.1) H 10/27/17 22:29 FiO2 28.0 % 10/27/17 22:29 Sodium 143 mmol/L (132-148) 10/28/17 06:00 Potassium 4.0 mmol/L (3.6-5.0) 10/28/17 06:00 Chloride 107 mmol/L (98-107) 10/28/17 06:00 Carbon Dioxide 26 mmol/L (21-33) 10/28/17 06:00 Anion Gap 14 (10-20) 10/28/17 06:00 BUN 27 mg/dL (7-21) H 10/28/17 06:00 Creatinine 1.0 mg/dl (0.8-1.5) 10/28/17 06:00 Est GFR ( Amer) > 60 10/28/17 06:00 Est GFR (Non-Af Amer) > 60 10/28/17 06:00 POC Glucose (mg/dL) 171 mg/dL (65-110) H 10/29/17 07:46 Random Glucose 270 mg/dL (70-110) H 10/28/17 06:00 Hemoglobin A1c 9.8 % (4.2-6.5) H 10/28/17 06:00 Lactic Acid 2.1 mmol/L (0.7-2.1) 10/28/17 08:34 Calcium 8.6 mg/dL (8.4-10.5) 10/28/17 06:00 Phosphorus 2.6 mg/dL (2.5-4.5) 10/28/17 06:00 Magnesium 2.2 mg/dL (1.7-2.2) 10/28/17 06:00 Iron 23 ug/dL (45-180) L 10/28/17 07:00 TIBC 298 ug/dL (261-462) 10/28/17 07:00 % Saturation 8 % (20-55) L 10/28/17 07:00 Ferritin 22.8 ng/mL 10/28/17 07:00 Total Bilirubin 0.1 mg/dL (0.2-1.3) L 10/28/17 06:00 AST 17 U/L (17-59) 10/28/17 06:00 ALT 24 U/L (7-56) 10/28/17 06:00 Alkaline Phosphatase 53 U/L (38-126) 10/28/17 06:00 Lactate Dehydrogenase 547 U/L (333-699) 10/27/17 14:32 Total Creatine Kinase 29 U/L (35-230) L 10/27/17 14:32 Troponin I < 0.01 ng/mL 10/28/17 07:00 NT-Pro-B Natriuret Pep 60.0 pg/mL (0-450) 10/27/17 14:32 Total Protein 5.9 g/dL (5.8-8.3) 10/28/17 06:00 Albumin 3.3 g/dL (3.0-4.8) 10/28/17 06:00 Globulin 2.6 gm/dL 10/28/17 06:00 Albumin/Globulin Ratio 1.3 (1.1-1.8) 10/28/17 06:00 Amylase 121 U/L (35-125) 10/27/17 14:32 Lipase 207 U/L (23-300) 10/27/17 14:32 Vitamin B12 354 pg/mL (239-931) 10/28/17 07:00 Folate 11.5 ng/mL 10/28/17 07:00 Procalcitonin 0.85 NG/ML (0.19-0.49) H 10/27/17 20:33 Arterial Blood Potassium 3.9 mmol/L (3.6-5.2) 10/27/17 22:29 Venous Blood Potassium 4.4 mmol/L (3.6-5.2) 10/27/17 20:59 Urine Color Straw (YELLOW) 10/27/17 19:44 Urine Appearance Clear (CLEAR) 10/27/17 19:44 Urine pH 6.0 (4.7-8.0) 10/27/17 19:44 Ur Specific [place] 1.010 (1.005-1.035) 10/27/17 19:44 Urine Protein Negative mg/dL (<30 mg/dL) 10/27/17 19:44 Urine Glucose (UA) >=1000 mg/dL (NEGATIVE) 10/27/17 19:44 Urine Ketones Negative mg/dL (NEGATIVE) 10/27/17 19:44 Urine Blood Negative (NEGATIVE) 10/27/17 19:44 Urine Nitrate Negative (NEGATIVE) 10/27/17 19:44 Urine Bilirubin Negative (NEGATIVE) 10/27/17 19:44 Urine Urobilinogen 0.2 E.U./dL (<1 E.U./dL) 10/27/17 19:44 Ur Leukocyte Esterase Trace Nash/uL (NEGATIVE) H 10/27/17 19:44 Urine RBC Negative /hpf (0-2) 10/27/17 19:44 Urine WBC 0 - 2 /hpf (0-6) 10/27/17 19:44 Ur Epithelial Cells None /hpf (0-5) 10/27/17 19:44 Urine Bacteria Neg (NEG) 10/27/17 19:44 Urine Other Uyeast 10/27/17 19:44 Alcohol, Quantitative < 10 mg/dL (0-10) 10/27/17 14:32 Influenza Typ A,B (EIA) Negative for flu a/b (NEGATIVE) 10/27/17 14:32 Attending/Attestation - Attestation I have personally seen and examined this patient.: Yes I have fully participated in the care of the patient.: Yes I have reviewed all pertinent clinical information, including history, physical exam and plan: Yes Notes (Text): 10/30/17 14:14 Attending note; Patient seen and examined with resident in morning rounds. Clinically improved significantly. Wheezing improved. No hypoxia or tachycardia. Patient is afebrile and nontoxic. Patient is a 62 year old male with a past medical history of HIV, COPD, home oxygen dependent, history of opiate abuse, Hepatitis C, pancreatitis, and DM II who presents with acute bronchitis and COPD exacerbation. Chest x-ray is negative for infiltrate. Continue DuoNeb, IV Solu-Medrol. Continue IV vancomycin and Zosyn. Pulmonary evaluation appreciated. Sepsis is resolving. Anxiety; continue Xanax. Offered psychiatric evaluation. Patient refused. Patient with a history of chronic opiate abuse. Patient with abusive behavior towards staff at times. HIV; continue above Abacavir and isentress. ID evaluation appreciated. DVT and GI prophylaxis. Prognosis is poor secondary to noncompliance with follow-up. Monitor patient closely. Upon discharge the patient will follow up with PMD Dr. Lan. Addendum; Patient signed AGAINST MEDICAL ADVICE. Prognosis is poor. Patient signed AGAINST MEDICAL ADVICE often. Does not refill his medications. 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 Patient also goes to multiple hospitals for treatment but does not completely treatment course as recommended.
== END 2017-10-29 12:21 | disposition left against medical advice (07) | DRG 190 ==
LOC: ED 13:39 → ERH 16:22 → 2RSO 20:24
PROVIDERS: ADMIT Internal Medicine; ATTEND Internal Medicine
DX: J44.1 Chronic obstructive pulmonary disease with (acute) exacerbation (principal); B20 Human immunodeficiency virus [HIV] disease; E87.2 Acidosis; E11.42 Type 2 diabetes mellitus with diabetic polyneuropathy; J20.9 Acute bronchitis, unspecified; J44.0 Chronic obstructive pulmonary disease with (acute) lower respiratory infection; I10 Essential (primary) hypertension; R09.02 Hypoxemia; B19.20 Unspecified viral hepatitis C without hepatic coma; Z91.19 Patient's noncompliance with other medical treatment and regimen; Z87.19 Personal history of other diseases of the digestive system; Z87.891 Personal history of nicotine dependence; Z99.81 Dependence on supplemental oxygen

== ENCOUNTER 2018-02-13 01:28 | Inpatient (IN) | payer MEDICARE, MEDICAID ==
[2018-02-13 01:42] VITALS: BMI 26.6
--- NOTE | 2018-02-13 01:42 | ED PDOC ---
Arrival/HPI - General Time Seen by Provider: 02/13/18 01:39 Historian: Patient - History of Present Illness Narrative History of Present Illness (Text): 02/13/18 01:42 Charly Gao is a 63 year old male, whose past medical history includes HIV on HAART, COPD, diabetes, diabetic neuropathy, hypertension, and pancreatitis, who presents to the Emergency department complaining of shortness of breath. Patient states he has been experiencing gradually worsening shortness of breath tonight. [place] [facility] [place]. Patient denies any fever, chills, shortness of breath, nausea, back pain, neck pain, headache, dizziness, or any other complaints. Symptom Onset: Gradual Symptom Course: Worsening Activities at Onset: Light Context: Home Past Medical History - Provider Review Nursing Documentation Reviewed: Yes - Infectious Disease Hx of Infectious Diseases: None - Tetanus Immunization Tetanus Immunization: Unknown - Cardiac Hx Cardiac Disorders: Yes Hx Hypertension: Yes - Pulmonary Hx Chronic Obstructive Pulmonary Disease (COPD): Yes (Emphysema) - Neurological Hx Neurological Disorder: No HX Cerebrovascular Accident: No Hx Seizures: No - HEENT Hx HEENT Disorder: No - Renal Hx Renal Disorder: No - Endocrine/Metabolic Hx Endocrine Disorders: Yes Hx Diabetes Mellitus Type 2: Yes - Hematological/Oncological Hx Blood Disorders: Yes - Integumentary Hx Dermatological Disorder: No - Musculoskeletal/Rheumatological Hx Musculoskeletal Disorders: Yes Hx Arthritis: Yes Hx Falls: No - Gastrointestinal Hx Gastrointestinal Disorders: Yes Hx Pancreatitis: Yes - Genitourinary/Gynecological Hx Genitourinary Disorders: No Hx Sexually Transmitted Diseases: No - Psychiatric Hx Psychophysiologic Disorder: Yes Hx Anxiety: Yes Hx Substance Use: Yes - Surgical History Hx Orthopedic Surgery: Yes (RT KNEE) Other/Comment: comestic surgery to face post getting kicked in face by horse - Anesthesia Hx Anesthesia: Yes Hx Anesthesia Reactions: No Hx Malignant Hyperthermia: No - Suicidal Assessment Feels Threatened In Home Enviroment: No Family/Social History - Physician Review Nursing Documentation Reviewed: Yes Family/Social History: Unknown Family HX Smoking Status: Former Smoker Hx Alcohol Use: No Hx Substance Use: Yes Substance used: heroine Allergies/Home Meds Allergies/Adverse Reactions: Allergies No Known Allergies Allergy (Verified 02/13/18 01:40) Home Medications: Home Meds Medication Instructions Recorded Confirmed Valsartan [Diovan] 1 tab PO DAILY 08/16/16 02/13/18 Gabapentin [Neurontin] 300 mg PO TID 06/10/17 02/13/18 Raltegravir Potassium [Isentress 600 mg PO BID 10/25/17 02/13/18 Hd] ALPRAZolam [Xanax] 0.25 mg PO TID PRN 11/21/17 02/13/18 Lipase/Protease/Amylase [Creon Dr 1 each PO TID 11/21/17 02/13/18 12,000 Units Capsule] Review of Systems - Physician Review All systems were reviewed & negative as marked: Yes - Review of Systems Constitutional: Normal. absent: Fevers Eyes: Normal ENT: Normal Respiratory: SOB Cardiovascular: Normal. absent: Chest Pain Gastrointestinal: Normal. absent: Abdominal Pain, Diarrhea, Nausea, Vomiting Genitourinary Male: Normal. absent: Dysuria, Frequency, Hematuria, Urinary Output Changes Musculoskeletal: Normal. absent: Back Pain, Neck Pain Skin: Normal. absent: Rash Neurological: Normal. absent: Headache, Dizziness Endocrine: Normal Hemo/Lymphatic: Normal Psychiatric: Normal Physical Exam Vital Signs Reviewed: Yes Temperature: Afebrile Blood Pressure: Normal Pulse: Regular Respiratory Rate: Normal Appearance: Positive for: Well-Appearing, Non-Toxic, Comfortable Pain Distress: None Mental Status: Positive for: Alert and Oriented X 3 - Systems Exam Head: Present: Atraumatic, Normocephalic Pupils: Present: PERRL Extroacular Muscles: Present: EOMI Conjunctiva: Present: Normal Mouth: Present: Moist Mucous Membranes Neck: Present: Normal Range of Motion Respiratory/Chest: Present: Wheezes (Wheezing bilaterally), Decreased Breath Sounds. No: Respiratory Distress, Accessory Muscle Use Cardiovascular: Present: Regular Rate and Rhythm, Normal S1, S2. No: Murmurs Abdomen: No: Tenderness, Distention, Peritoneal Signs Back: Present: Normal Inspection Upper Extremity: Present: Normal Inspection. No: Cyanosis, Edema Lower Extremity: Present: Normal Inspection. No: Edema Neurological: Present: GCS=15, CN II-XII Intact, Speech Normal Skin: Present: Warm, Dry, Normal Color. No: Rashes Psychiatric: Present: Alert, Oriented x 3, Normal Insight, Normal Concentration Medical Decision Making ED Course and Treatment: 02/13/18 01:42 Impression: 63 year old male complaining of shortness of breath. Plan: -- EKG -- Chest X-ray -- Labs, cardiac enzymes, BNP -- Duoneb -- Solu-mderol -- Reassess and disposition Prior Visits: Notes and results from previous visits were reviewed. Progress Notes: Reviewed EKG, NSR at [address]-segment elevations or depressions, no T-wave inversions, normal intervals. 02/13/18 04:20 Case discussed with director biomedical engineering tongue presser, who is aware and agrees with plan. 02/13/18 04:[address] Bradley, who is aware and agrees with plan. Accepts pt in to hospitalist. Pt will go to [facility] observation for COPD exacerbation. - Lab Interpretations I have reviewed the lab results: Yes - RAD Interpretation Scorer Single: ED Physician - EKG Interpretation Interpreted by ED Physician: Yes Type: 12 lead EKG - Scribe Statement The provider has reviewed the documentation as recorded by the Jassonibjuliana Buckley Provider Scribe Attestation: All medical record entries made by the Scribe were at my direction and personally dictated by me. I have reviewed the chart and agree that the record accurately reflects my personal performance of the history, physical exam, medical decision making, and the department course for this patient. I have also personally directed, reviewed, and agree with the discharge instructions and d isposition. Disposition/Present on Arrival - Present on Arrival Any Indicators Present on Arrival: No History of DVT/PE: No History of Uncontrolled Diabetes: No Urinary Catheter: No History of Decub. Ulcer: No History Surgical Site Infection Following: None - Disposition Have Diagnosis and Disposition been Completed?: Yes Diagnosis: COPD exacerbation Disposition: HOSPITALIZED Disposition Time: 04:51 Patient Problems: Current Active Problems Problem Status Onset COPD exacerbation Acute Condition: STABLE
[2018-02-13] MEDS ORDERED: Albuterol-Ipratrop 3 mg / 0.5 (3 ml) UD IH STA ×2 (01:48→04:45)
[2018-02-13 02:42] LABS: HEMOGLOBIN 8.8 g/dL (14.0-18.0); MEAN CELL VOLUME 81.5 fl (80.0-105.0); MEAN CORPUSCULAR HEMOGLOBIN 23.7 pg (25.0-35.0); MEAN PLATELET VOLUME 9.7 fl (7.0-11.0); RBC 3.72 10^6/uL (3.5-6.1); RED CELL DISTRIBUTION WIDTH 15.8 % (11.5-14.5); WHITE BLOOD COUNT 13.9 10^3/uL (4.5-11.0)
[2018-02-13 02:44] LABS: INR 1.09; PARTIAL THROMBOPLASTIN TIME 27.2 Seconds (25.1-36.5); PROTHROMBIN TIME 12.5 SECONDS (9.4-12.5)
[2018-02-13 03:17] LABS: ALB/GLOB RATIO 1.1 (1.1-1.8); ALBUMIN 4.1 g/dL (3.0-4.8); ALT/SGPT 14 U/L (7-56); AST/SGOT 26 U/L (17-59); BLOOD UREA NITROGEN 29 mg/dL (7-21); CALCIUM 9.3 mg/dL (8.4-10.5); GFR NON-AFRICAN AMERICAN 44
[2018-02-13 03:28] LABS: B-TYPE NATRIURETIC PEPTIDE 282 pg/mL (0-450); TROPONIN I < 0.01 ng/mL
[2018-02-13] MEDS ORDERED: Azithromycin 500MG/NS 250ml 500 MG/250 ML BAG IV STA (04:45)
[2018-02-13] MEDS ORDERED: cefTRIAXone 1 gm 1 GM/100 ML BAG IV STA (04:45)
--- NOTE | 2018-02-13 04:52 | CP.PCM.HP ---
<Nimisha Burgos - Last Filed: 02/13/18 05:58> History of Present Illness - History of Present Illness History of Present Illness: please note patient is a poor historian 63yo male PMHx COPD, HIV on HAART, DM2, Hep C, pancreatitis, and cataracts presents for SOB and cough for 2 days. Patient reports the SOB worsened today which is why he decided to come in. As per ER note, patient was [place] [facility] [place] decided to leave. He reported SOB at rest and on ambulation with a productive cough with milky sputum. He also admitted to some chills but denied any fevers. Patient did request pain medications for pain in his legs. He also admitted to some diarrhea over the past 3 days with 1 loose BM daily- no melena/hematochezia. On further ROS patient denied headache, dizziness, chest pain, palpitations, abd pain, nausea, vomiting, constipation, dysuria, hematur ia, b/l LE swelling. He did admit to gout and neuropathy. PMHx: COPD, Pancreatitis, HIV, DM II, Hep C, and Cataracts PSurgHx: Right Cataract Surgery SocHx: 1PPD for 51 years. Quit about 10 years ago. Used to drink EtOH but quit 40 years ago; could not quantify how much. Patient used to use drugs but quit 14 years ago. Lives in alone. HospHx: multiple hospitalizations within [facility] system FamHx: Non contributory ALL: nkda Meds: MAR reviewed PMD: Dr. Holman on [facility] Present on Admission - Present on Admission Any Indicators Present on Admission: No Review of Systems - Review of Systems All systems: reviewed and no additional remarkable complaints except Review of Systems: as per HPI Past Patient History - Infectious Disease Hx of Infectious Diseases: None - Tetanus Immunizations Tetanus Immunization: Unknown - Past Medical History & Family History Past Medical History?: Yes - Past Social History Smoking Status: Former Smoker - CARDIAC Hx Cardiac Disorders: Yes Hx Hypertension: Yes - PULMONARY Hx Chronic Obstructive Pulmonary Disease (COPD): Yes (Emphysema) - NEUROLOGICAL Hx Neurological Disorder: No HX Cerebrovascular Accident: No Hx Seizures: No - HEENT Hx HEENT Problems: No - RENAL Hx Chronic Kidney Disease: No - ENDOCRINE/METABOLIC Hx Endocrine Disorders: Yes Hx Diabetes Mellitus Type 2: Yes - HEMATOLOGICAL/ONCOLOGICAL Hx Blood Disorders: Yes - INTEGUMENTARY Hx Dermatological Problems: No - MUSCULOSKELETAL/RHEUMATOLOGICAL Hx Musculoskeletal Disorders: Yes Hx Arthritis: Yes Hx Falls: No - GASTROINTESTINAL Hx Gastrointestinal Disorders: Yes Hx Pancreatitis: Yes - GENITOURINARY/GYNECOLOGICAL Hx Genitourinary Disorders: No Hx Sexually Transmitted Disorders: No - PSYCHIATRIC Hx Psychophysiologic Disorder: Yes Hx Anxiety: Yes Hx Substance Use: Yes - SURGICAL HISTORY Hx Orthopedic Surgery: Yes (RT KNEE) Other/Comment: comestic surgery to face post getting kicked in face by horse - ANESTHESIA Hx Anesthesia: Yes Hx Anesthesia Reactions: No Hx Malignant Hyperthermia: No Meds Allergies/Adverse Reactions: Allergies Allergy/AdvReac Type Severity Reaction Status Date / Time No Known Allergies Allergy Verified 02/13/18 01:40 Physical Exam - Constitutional Appears: No Acute Distress, Unkempt - Head Exam Head Exam: ATRAUMATIC, NORMAL INSPECTION, NORMOCEPHALIC - Eye Exam Eye Exam: EOMI, Normal appearance, PERRL. absent: Conjunctival injection, S cleral icterus Pupil Exam: NORMAL ACCOMODATION - ENT Exam ENT Exam: Mucous Membranes Dry - Neck Exam Neck exam: Positive for: Full Rom. Negative for: Lymphadenopathy - Respiratory Exam Respiratory Exam: Prolonged Expiratory Phase, Rhonchi (b/l), Wheezes (faint b/l), NORMAL BREATHING PATTERN. absent: Accessory Muscle Use, Clear to Auscultation Bilateral, Rales, Respiratory Distress - Cardiovascular Exam Cardiovascular Exam: RRR, +S1, +S2. absent: Systolic Murmur - GI/Abdominal Exam GI & Abdominal Exam: Normal Bowel Sounds, Soft. absent: Firm, Guarding, Rigid, Tenderness - Rectal Exam Rectal Exam: Deferred - Extremities Exam Extremities exam: Positive for: normal inspection, pedal pulses present - Neurological Exam Neurological exam: Alert, CN II-XII Intact, Oriented x3 - Psychiatric Exam Psychiatric exam: Normal Affect, Normal Mood - Skin Skin Exam: Dry, Intact, Normal Color, Warm Results - Vital Signs Recent Vital Signs: Last Vital Signs Temp 98.4 F 02/13/18 01:41 Pulse 93 H 02/13/18 01:41 Resp 20 02/13/18 02:00 BP 114/61 02/13/18 01:41 Pulse Ox 99 02/13/18 02:00 - Labs Result Diagrams: 02/13/18 02:04 02/13/18 02:04 Labs: Laboratory Results - last 24 hr 02/13/18 02/13/18 02/13/18 02:04 02:04 02:04 WBC 13.9 H D RBC 3.72 Hgb 8.8 L Hct 30.3 L MCV 81.5 D MCH 23.7 L MCHC 29.0 L RDW 15.8 H Plt Count 359 MPV 9.7 PT 12.5 INR 1.09 APTT 27.2 Sodium 140 Potassium 3.6 Chloride 101 Carbon Dioxide 29 Anion Gap 13 BUN 29 H Creatinine 1.6 H Est GFR ( Amer) 53 Est GFR (Non-Af Amer) 44 Random Glucose 218 H Calcium 9.3 Total Bilirubin 0.2 AST 26 ALT 14 Alkaline Phosphatase 103 Lactate Dehydrogenase 489 Total Creatine Kinase 84 Troponin I < 0.01 NT-Pro-B Natriuret Pep 282 Total Protein 7.7 Albumin 4.1 Globulin 3.6 Albumin/Globulin Ratio 1.1 Assessment & Plan - Assessment and Plan (Free Text) Assessment: 63yo male PMHx COPD, HIV on HAART, DM2, Hep C, pancreatitis, and cataracts presents for SOB and cough for 2 days. Patient admitted to med/surg for further management. Plan: COPD exacerbation -f/u final read of CXR -Duoneb 3ml inh q6 deep and q2 prn -Solumedrol 40q12 -IV Azithromycin and IV Rocephin -Mucinex 1tab bid -Singulair 10mg hs -f/u rapid flu -f/u procal -NC o2 2L to keep sat 88-92% KELTON -likely secondary to dehydration -NS@100 -monitor of repeat BMP Hx of HIV on HAART -continue Abacavir and Raltegravir -f/u CD4 count -ID Dr. Thompson consulted for HIV meds management Hx of DM2 -f/u HgbA1c -Accucheck achs -RISS low -Levemir 25u hs -Neurontin 300 tid Hx of Drug use -f/u drug screen -f/u alc level GI ppx: renally adjusted Pepcid 10mg bid DVT ppx: Lovenox and SCDs Diet: HHD with [facility] Physical therapy consulted for eval and tx Discussed with Dr. Kirk Burgos PGY3 <Shannon Bradley - Last Filed: 02/13/18 06:50> Results - Vital Signs Recent Vital Signs: Last Vital Signs Temp 98.4 F 02/13/18 01:41 Pulse 97 H 02/13/18 06:30 Resp 19 02/13/18 06:30 BP 112/60 02/13/18 06:30 Pulse Ox 96 02/13/18 06:30 - Labs Result Diagrams: 02/13/18 02:04 02/13/18 02:04 Labs: Laboratory Results - last 24 hr 02/13/18 02/13/18 02/13/18 02:04 02:04 02:04 WBC 13.9 H D RBC 3.72 Hgb 8.8 L Hct 30.3 L MCV 81.5 D MCH 23.7 L MCHC 29.0 L RDW 15.8 H Plt Count 359 MPV 9.7 PT 12.5 INR 1.09 APTT 27.2 Sodium 140 Potassium 3.6 Chloride 101 Carbon Dioxide 29 Anion Gap 13 BUN 29 H Creatinine 1.6 H Est GFR ( Amer) 53 Est GFR (Non-Af Amer) 44 Random Glucose 218 H Calcium 9.3 Total Bilirubin 0.2 AST 26 ALT 14 Alkaline Phosphatase 103 Lactate Dehydrogenase 489 Total Creatine Kinase 84 Troponin I < 0.01 NT-Pro-B Natriuret Pep 282 Total Protein 7.7 Albumin 4.1 Globulin 3.6 Albumin/Globulin Ratio 1.1 Attending/Attestation - Attestation I have personally seen and examined this patient.: Yes I have fully participated in the care of the patient.: Yes I have reviewed all pertinent clinical information: Yes Notes (Text): 02/13/18 06:49 Patient was seen when she was in the ER. Medical record was reviewed. Agree with history, physical examination, assessment and plan.
[2018-02-13] MEDS ORDERED: Albuterol-Ipratrop 3 mg / 0.5 (3 ml) UD IH PRN (05:30)
[2018-02-13] MEDS ORDERED: Dextrose 50% SYRINGE Inj (50 ml) IV PRN (05:32)
[2018-02-13] MEDS: Albuterol-Ipratrop 3 mg / 0.5 (3 ml) UD IH SCH ×4 (05:39→23:30)
--- NOTE | 2018-02-13 05:58 | RAD ---
Date of service: 02/13/2018 HISTORY: sob COMPARISON: 10/27/2017. FINDINGS: LUNGS: The lungs are well inflated and clear. PLEURA: No pleural effusions or pneumothorax. CARDIOVASCULAR: The heart is normal in size. No aortic atherosclerotic calcification present. OSSEOUS STRUCTURES: Within normal limits for the patient's age. VISUALIZED UPPER ABDOMEN: Normal. OTHER FINDINGS: None. IMPRESSION: No active pulmonary disease.
[2018-02-13] MEDS: Sodium Chloride 0.9% 1,000 ML IV SCH ×2 (06:29→18:10)
[2018-02-13] MEDS ORDERED: Insulin Reg-LOW-Coverage SC SCH (07:30)
[2018-02-13] MEDS ORDERED: Insulin Regular 1 UNITS/0.01 ML ML SC ONE (07:51)
[2018-02-13] MEDS ORDERED: Arformoterol 15 mcg/2 ml Inh Sol IH SCH (08:00)
[2018-02-13] MEDS: Budesonide 0.25 mg/2 ml Inhal Susp UD IH SCH ×2 (08:20→20:08)
[2018-02-13 08:49] LABS: BLOOD UREA NITROGEN 28 mg/dL (7-21)
[2018-02-13 08:50] LABS: GFR NON-AFRICAN AMERICAN 51
[2018-02-13] MEDS: guaiFENesin-DM 600-30 mg ER Tab PO SCH ×2 (09:44→18:08)
[2018-02-13] MEDS: Enoxaparin 40 mg Syringe SC SCH (09:44)
[2018-02-13] MEDS ORDERED: cefTRIAXone 1 gm 1 GM/100 ML BAG IVPB SCH (10:00)
[2018-02-13] MEDS ORDERED: MethylPREDNISolone 40 mg Vial IVP SCH (10:00)
--- NOTE | 2018-02-13 10:47 | CARD ---
APPROVED REPORT Date of service: 02/13/2018 EKG Measurement Heart [id number] <Conclusion> Normal sinus rhythm Normal ECG No change
[2018-02-13] MEDS ORDERED: Insulin Reg-MEDIUM-Coverage SC SCH (11:30)
[2018-02-13] MEDS ORDERED: Insulin Regular 1 UNITS/0.01 ML ML SC STA (12:41)
[2018-02-13] MEDS: guaiFENesin DM 100 mg-10 mg/5 ml UD PO PRN (13:07)
[2018-02-13] MEDS: Insulin Reg-HIGH-Coverage SC SCH ×2 (16:22→21:27)
[2018-02-13] MEDS ORDERED: Azithromycin 250 MG in Sodium Chloride 0.9% 250 ML IVPB SCH (18:00)
--- NOTE | 2018-02-13 18:38 | CP.PCM.CON ---
History of Present Illness - History of Present Illness History of Present Illness: Infectious Disease Consultation: February 13, 2018 63 yo AA male with known HIV and Hepatitis C who is followed at [facility] [place]. The is known to have frequent h ospitalizations at [facility], [facility], and [facility]. Medical history includes HTN, DM, emphysema, pancreatitis, and back pain secondary multiple issues like spinal osteomyelitis. Patient had been admitted to multiple hospitals including [facility], [facility], and [facility]. He presents to [facility] this time with shortness of breath and productive chronic cough. He is known to be non-compliant with medications other than his HAART. He was last admitted in [facility] in November 2017 and recently discharged from [facility] care on January 29, 2018. Extremely poor insight into his medical issues. The patient has a CD4 count < 50. Undetectable viral load in October 2017. PMHx: Hepatitis C, HIV, COPD, Emphysema, Pancreatitis, Chronic Back Pain - Osteomyelitis of the Lumbar spine, DM Type II PSHx: Wired jaw in the past, Right Cataract Surgery Allergies: NKDA Social Hx: Tobacco use, History of EtOH use, No recent IV drug use but had in the past, The patient is still actively using heroin. Positive drug screen in November 2017. Active Medications Abacavir Sulfate (Ziagen) 300 mg PO BID [facility]; Protocol Last Admin: 02/13/18 18:08 Dose: 300 mg Albuterol/Ipratropium (Duoneb 3 Mg/0.5 Mg (3 Ml) Ud) 3 ml IH Q6H [facility]MA[facility] Last Admin: 02/13/18 11:03 Dose: 3 ml Albuterol/Ipratropium (Duoneb 3 Mg/0.5 Mg (3 Ml) Ud) 3 ml IH Q2H PRN PRN Reason: Wheezing Last Admin: 02/13/18 08:20 Dose: 3 ml Alprazolam (Xanax) 0.25 mg PO TID PRN; Protocol PRN Reason: Anxiety Stop: 02/20/18 05:15 Last Admin: 02/13/18 09:53 Dose: 0.25 mg Aspirin (Aspirin Chewable) 81 mg PO DAILY [facility] Last Admin: 02/13/18 09:44 Dose: 81 mg Budesonide (Pulmicort Respules) 0.25 mg IH [id number] [facility] Last Admin: 02/13/18 08:20 Dose: 0.25 mg Dextrose (Dextrose 50% Inj) 0 ml IV STAT PRN; Protocol PRN Reason: Hypoglycemia Protocol Enoxaparin Sodium (Lovenox) 40 mg SC DAILY [facility]; Protocol Last Admin: 02/13/18 09:44 Dose: 40 mg Famotidine (Pepcid) 10 mg PO BID [facility] Last Admin: 02/13/18 18:08 Dose: 10 mg Gabapentin (Neurontin) 300 mg PO TID [facility]; Protocol Last Admin: 02/13/18 18:08 Dose: 300 mg Guaifenesin/Dextromethorphan (Mucinex-Dm 600-30 Mg) 1 tab PO BID [facility] Last Admin: 02/13/18 18:08 Dose: 1 tab Guaifenesin/Dextromethorphan (Robitussin Dm) 5 ml PO Q4H PRN PRN Reason: Cough Last Admin: 02/13/18 13:07 Dose: 5 ml Dextrose (Dextrose 5% In Water 1000 Ml) 1,000 mls @ 0 mls/hr IV .Q0M PRN; Protocol PRN Reason: Hypoglycemia Protocol Ceftriaxone Sodium (Rocephin 1 Gram Ivpb) 1 gm in 100 mls @ 100 mls/hr IVPB DAILY [facility]; Protocol Azithromycin 250 mg/ Sodium (Chloride) 250 mls @ 167 mls/hr IVPB DAILY [facility]; Protocol Sodium Chloride (Sodium Chloride 0.9%) 1,000 mls @ 100 mls/hr IV .Q10H [facility] Last Admin: 02/13/18 18:10 Dose: 100 mls/hr Insulin Detemir (Levemir) 25 unit SC HS [facility] Insulin Human Regular (Humulin R High) 0 units SC ACHS [facility]; Protocol Last Admin: 02/13/18 16:22 Dose: 15 units Methylprednisolone (Solu-Medrol) 20 mg IVP Q12 [facility] Montelukast Sodium (Singulair) 10 mg PO HS [facility] Raltegravir (Isentress) 600 mg PO DAILY [facility]; Protocol Last Admin: 02/13/18 09:43 Dose: 600 mg Spironolactone (Aldactone) 25 mg PO DAILY [facility] Last Admin: 02/13/18 09:44 Dose: 25 mg Family Hx: none given ROS: No fevers, nausea, vomiting, diarrhea, headaches, dizziness, chest pain, melena, hematuria, hematemesis, hematochezia, depression, anxiety. Patient with cough, chills, SOB, back pain, abdominal pain, and green sputum production. Past Patient History - Infectious Disease Hx of Infectious Diseases: None - Tetanus Immunizations Tetanus Immunization: Unknown - Past Medical History & Family History Past Medical History?: Yes - Past Social History Smoking Status: Former Smoker - CARDIAC Hx Cardiac Disorders: Yes Hx Hypertension: Yes - PULMONARY Hx Chronic Obstructive Pulmonary Disease (COPD): Yes - NEUROLOGICAL Hx Neurological Disorder: No HX Cerebrovascular Accident: No Hx Seizures: No - HEENT Hx HEENT Problems: No Hx Cataracts: Yes (had sx) - RENAL Hx Chronic Kidney Disease: No - ENDOCRINE/METABOLIC Hx Diabetes Mellitus Type 2: Yes - HEMATOLOGICAL/ONCOLOGICAL Hx Blood Disorders: Yes Hx Hepatitis C: Yes Hx Human Immunodeficiency Virus (HIV): Yes - INTEGUMENTARY Hx Dermatological Problems: No - MUSCULOSKELETAL/RHEUMATOLOGICAL Hx Musculoskeletal Disorders: Yes Hx Arthritis: Yes Hx Falls: No - GASTROINTESTINAL Hx Gastrointestinal Disorders: Yes Hx Pancreatitis: Yes - GENITOURINARY/GYNECOLOGICAL Hx Genitourinary Disorders: No Hx Sexually Transmitted Disorders: No - PSYCHIATRIC Hx Psychophysiologic Disorder: Yes Hx Anxiety: Yes Hx Substance Use: No - SURGICAL HISTORY Hx Orthopedic Surgery: Yes (RT KNEE) Other/Comment: comestic surgery to face post getting kicked in face by horse - ANESTHESIA Hx Anesthesia: Yes Hx Anesthesia Reactions: No Hx Malignant Hyperthermia: No Meds Allergies/Adverse Reactions: Allergies Allergy/AdvReac Type Severity Reaction Status Date / Time No Known Allergies Allergy Verified 02/13/18 01:40 - Medications Medications: Current Medications Abacavir Sulfate (Ziagen) 300 mg PO BID [facility]; Protocol Last Admin: 02/13/18 18:08 Dose: 300 mg Albuterol/Ipratropium (Duoneb 3 Mg/0.5 Mg (3 Ml) Ud) 3 ml IH Q6H [facility] Last Admin: 02/13/18 11:03 Dose: 3 ml Albuterol/Ipratropium (Duoneb 3 Mg/0.5 Mg (3 Ml) Ud) 3 ml IH Q2H PRN PRN Reason: Wheezing Last Admin: 02/13/18 08:20 Dose: 3 ml Alprazolam (Xanax) 0.25 mg PO TID PRN; Protocol PRN Reason: Anxiety Stop: 02/20/18 05:15 Last Admin: 02/13/18 09:53 Dose: 0.25 mg Aspirin (Aspirin Chewable) 81 mg PO DAILY [facility] Last Admin: 02/13/18 09:44 Dose: 81 mg Budesonide (Pulmicort Respules) 0.25 mg IH [id number] [facility] Last Admin: 02/13/18 08:20 Dose: 0.25 mg Dextrose (Dextrose 50% Inj) 0 ml IV STAT PRN; Protocol PRN Reason: Hypoglycemia Protocol Enoxaparin Sodium (Lovenox) 40 mg SC DAILY [facility]; Protocol Last Admin: 02/13/18 09:44 Dose: 40 mg Famotidine (Pepcid) 10 mg PO BID [facility] Last Admin: 02/13/18 18:08 Dose: 10 mg Gabapentin (Neurontin) 300 mg PO TID [facility]; Protocol Last Admin: 02/13/18 18:08 Dose: 300 mg Guaifenesin/Dextromethorphan (Mucinex-Dm 600-30 Mg) 1 tab PO BID [facility] Last Admin: 02/13/18 18:08 Dose: 1 tab Guaifenesin/Dextromethorphan (Robitussin Dm) 5 ml PO Q4H PRN PRN Reason: Cough Last Admin: 02/13/18 13:07 Dose: 5 ml Dextrose (Dextrose 5% In Water 1000 Ml) 1,000 mls @ 0 mls/hr IV .Q0M PRN; Protocol PRN Reason: Hypoglycemia Protocol Ceftriaxone Sodium (Rocephin 1 Gram Ivpb) 1 gm in 100 mls @ 100 mls/hr IVPB DAILY [facility]; Protocol Azithromycin 250 mg/ Sodium (Chloride) 250 mls @ 167 mls/hr IVPB DAILY [facility]; Protocol Sodium Chloride (Sodium Chloride 0.9%) 1,000 mls @ 100 mls/hr IV .Q10H [facility] Last Admin: 02/13/18 18:10 Dose: 100 mls/hr Insulin Detemir (Levemir) 25 unit SC HS [facility] Insulin Human Regular (Humulin R High) 0 units SC ACHS [facility]; Protocol Last Admin: 02/13/18 16:22 Dose: 15 units Methylprednisolone (Solu-Medrol) 20 mg IVP Q12 [facility] Montelukast Sodium (Singulair) 10 mg PO HS [facility] Raltegravir (Isentress) 600 mg PO DAILY [facility]; Protocol Last Admin: 02/13/18 09:43 Dose: 600 mg Spironolactone (Aldactone) 25 mg PO DAILY [facility] Last Admin: 02/13/18 09:44 Dose: 25 mg Physical Exam - Constitutional Appears: No Acute Distress, Unkempt - Head Exam Head Exam: ATRAUMATIC, NORMOCEPHALIC - Eye Exam Eye Exam: EOMI, PERRL Pupil Exam: NORMAL ACCOMODATION, PERRL - ENT Exam ENT Exam: Mucous Membranes Moist, Normal External Ear Exam, TM's Normal Bilaterally - Neck Exam Neck exam: Positive for: Full Rom, Normal Inspection - Respiratory Exam Respiratory Exam: Decreased Breath Sounds, Rales, Rhonchi, Wheezes - Cardiovascular Exam Cardiovascular Exam: REGULAR RHYTHM, RRR, +S1, +S2 - GI/Abdominal Exam GI & Abdominal Exam: Normal Bowel Sounds, Soft. absent: Distended, Tenderness - Extremities Exam Extremities exam: Positive for: full ROM, normal inspection - Neurological Exam Neurological exam: Alert, CN II-XII Intact, Oriented x3 - Psychiatric Exam Psychiatric exam: Normal Affect, Normal Mood - Skin Skin Exam: Intact, Normal Color Results - Vital Signs Recent Vital Signs: Last Vital Signs Temp 98.2 F 02/13/18 16:56 Pulse 81 02/13/18 16:56 Resp 19 02/13/18 16:56 BP 113/70 02/13/18 16:56 Pulse Ox 98 02/13/18 16:56 - Labs Result Diagrams: 02/13/18 02:04 02/13/18 08:00 Labs: Laboratory Results - last 24 hr 02/13/18 02/13/18 02/13/18 02:04 02:04 02:04 WBC 13.9 H D RBC 3.72 Hgb 8.8 L Hct 30.3 L MCV 81.5 D MCH 23.7 L MCHC 29.0 L RDW 15.8 H Plt Count 359 MPV 9.7 PT 12.5 INR 1.09 APTT 27.2 Sodium 140 Potassium 3.6 Chloride 101 Carbon Dioxide 29 Anion Gap 13 BUN 29 H Creatinine 1.6 H Est GFR ( Amer) 53 Est GFR (Non-Af Amer) 44 Random Glucose 218 H Hemoglobin A1c Calcium 9.3 Total Bilirubin 0.2 AST 26 ALT 14 Alkaline Phosphatase 103 Lactate Dehydrogenase 489 Total Creatine Kinase 84 Troponin I < 0.01 NT-Pro-B Natriuret Pep 282 Total Protein 7.7 Albumin 4.1 Globulin 3.6 Albumin/Globulin Ratio 1.1 Procalcitonin Alcohol, Quantitative Influenza Typ A,B (EIA) 02/13/18 02/13/18 02/13/18 07:40 07:40 07:40 WBC RBC Hgb Hct MCV MCH MCHC RDW Plt Count MPV PT INR APTT Sodium Potassium Chloride Carbon Dioxide Anion Gap BUN Creatinine Est GFR ( Amer) Est GFR (Non-Af Amer) Random Glucose Hemoglobin A1c 8.4 H D Calcium Total Bilirubin AST ALT Alkaline Phosphatase Lactate Dehydrogenase Total Creatine Kinase Troponin I NT-Pro-B Natriuret Pep Total Protein Albumin Globulin Albumin/Globulin Ratio Procalcitonin 0.35 Alcohol, Quantitative < 10 Influenza Typ A,B (EIA) 02/13/18 02/13/18 08:00 10:00 WBC RBC Hgb Hct MCV MCH MCHC RDW Plt Count MPV PT INR APTT Sodium 136 Potassium 4.9 Chloride 102 Carbon Dioxide 23 Anion Gap 16 BUN 28 H Creatinine 1.4 Est GFR ( Amer) > 60 Est GFR (Non-Af Amer) 51 Random Glucose 437 H* D Hemoglobin A1c Calcium 9.0 Total Bilirubin AST ALT Alkaline Phosphatase Lactate Dehydrogenase Total Creatine Kinase Troponin I NT-Pro-B Natriuret Pep Total Protein Albumin Globulin Albumin/Globulin Ratio Procalcitonin Alcohol, Quantitative Influenza Typ A,B (EIA) Negative for flu a/b Assessment & Plan - Assessment and Plan (Free Text) Assessment: 63 yo AA male well known to me from prior hospitalizations to [facility] and [facility]. Presentation of SOB. Recent CD4 and Viral loads noted. The patient at least takes his HAART therapy as the HIV viral load in October 2017 was undetectable. L ow CD4 count may be consequence of the patient's bone marrow being burned out from years of uncontrolled HIV. Possible COPD exacerbation. Continue antibiotic prophylaxis with Bactrim DS and Azithromycin for PCP and Mycobacterium for CD4 counts less than 50. Continue on HAART of Abacavir and Raltgravir. Supportive care. Mild leukocytosis. Chest X-ray no active cardiopulmonary disease. On Rocephin and Azithromycin for care which is reasonable for now. Thank you for allowing me to participate in the care of the patient, we will follow with you.
[2018-02-13] MEDS: MethylPREDNISolone 40 mg Vial IVP SCH (21:20)
[2018-02-13] MEDS: Insulin Detemir 100 units/ml Vial (Levemir) SC SCH (21:35)
--- NOTE | 2018-02-14 01:59 | CON ---
DATE: 02/13/2018 PULMONARY CONSULTATION REFERRING PHYSICIAN: Tamara George MD REASON FOR CONSULTATION: Cough and shortness of breath. HISTORY OF PRESENT ILLNESS: This is a 63 years old gentleman with past medical history significant for chronic obstructive lung disease; HIV positive, on antiviral medication; diabetes; and pancreatitis; been having cough and shortness of breath, seen in [facility] Emergency Room. He apparently signed himself out. Presently having cough and shortness of breath. No nausea. No abdominal pain. No diarrhea. PAST MEDICAL HISTORY: HIV positive, pancreatitis, COPD, diabetes, and hepatitis C. SOCIAL HISTORY: Stopped smoking few years ago and also stopped drinking few years ago. ALLERGIES: UNKNOWN. FAMILY HISTORY: No significant cardiopulmonary disease reported. MEDICATIONS: He is on Aldactone 25 mg daily, aspirin 81 mg daily, Zithromax 250 mg daily, IV fluid D5, DuoNeb every 6 hours and every 2 hours p.r.n., insulin coverage, Isentress 600 mg daily, Levemir 25 units subcutaneous at bedtime, Lovenox 40 mg daily, Mucinex DM twice a day, gabapentin 300 mg three times a day, Pepcid 10 mg twice a day, budesonide inhaled twice a day, Robitussin DM 5 mL every 4 hours p.r.n., Rocephin 1 g IV daily, Singulair 10 mg daily, Solu-Medrol 40 mg every 12 hours, Xanax 0.25 mg three times a day, and Ziagen 300 mg twice a day. REVIEW OF SYSTEMS: No headache. No rhinitis. Has cough and shortness of breath. No chest pain. No nausea. No vomiting. Has extremity pain. No dysuria. PHYSICAL EXAMINATION: GENERAL: Lying in the bed. No acute distress. VITAL SIGNS: Temp is , heart rate is 81, respiratory rate is 20, blood pressure 113/70, pulse ox 98% on 2 L nasal cannula. HEENT: Moist mucous membrane. Crowded airway. Mallampati score is 4. NECK: Supple. No JVD. LUNGS: Have diffuse scattered rhonchi. Have a prolonged expiratory phase. HEART: S1 and S2. ABDOMEN: Soft and nontender. No organomegaly. EXTREMITIES: There is no edema. NEUROLOGIC: Awake, alert, follow simple commands. LABORATORY DATA: Shows hemoglobin 8.3, hematocrit 30.3, WBC 13.9, and platelet count is 359. INR 1.09 and PTT 27. Sodium 136, potassium 4.9, chloride 108, bicarbonate 23, BUN 28, creatinine 1.4, glucose 437, hemoglobin A1c 8.4, calcium is 9.0, procalcitonin 0.35. Alcohol level is less than 10. Influenza A and B is negative. Chest x-ray done in emergency room shows no active pulmonary disease. Had EKG done in ER shows normal sinus rhythm. IMPRESSION AND PLAN: Chronic obstructive lung disease, history of substance abuse, human immunodeficiency virus positive, diabetes, hypertension, history of pancreatitis, and multiple joint pains. Pulmonary point of view doing well. Continue IV and inhaled bronchodilator. Continue antibiotics. Gastric and deep vein thrombosis prophylaxis. Continue his antiviral medication. May give insulin with steroids. We will recommend pulmonary function test as outpatient. Thank you and we will follow with you. Ventura Browning MD
[2018-02-14] MEDS: Albuterol-Ipratrop 3 mg / 0.5 (3 ml) UD IH SCH ×4 (02:13→20:57)
[2018-02-14] MEDS: guaiFENesin DM 100 mg-10 mg/5 ml UD PO PRN ×3 (02:48→16:58)
[2018-02-14] MEDS: Budesonide 0.25 mg/2 ml Inhal Susp UD IH SCH ×2 (07:32→20:57)
[2018-02-14] MEDS: Insulin Reg-HIGH-Coverage SC SCH (08:09)
[2018-02-14 08:12] LABS: EOS % 0.1 % (1.5-5.0); GRAN # 10.69 (1.4-6.5); GRAN % 82.2 % (50.0-68.0); LYMPH # 1.6 (1.2-3.4); LYMPH % 12.5 % (22.0-35.0); MEAN CELL VOLUME 79.9 fl (80.0-105.0); MEAN CORPUSCULAR HEMOGLOBIN 23.3 pg (25.0-35.0); MEAN CORPUSCULAR HGB CONC 29.1 g/dl (31.0-37.0); MEAN PLATELET VOLUME 9.7 fl (7.0-11.0); MONO # 0.7 (0.1-0.6); MONO % 5.2 % (1.0-6.0); RBC 3.44 10^6/uL (3.5-6.1); RED CELL DISTRIBUTION WIDTH 15.9 % (11.5-14.5)
[2018-02-14 08:34] LABS: ALB/GLOB RATIO 1.1 (1.1-1.8); ALBUMIN 3.3 g/dL (3.0-4.8); ALT/SGPT 17 U/L (7-56); AST/SGOT 17 U/L (17-59); BLOOD UREA NITROGEN 27 mg/dL (7-21); GFR NON-AFRICAN AMERICAN 56
[2018-02-14] MEDS: guaiFENesin-DM 600-30 mg ER Tab PO SCH ×2 (09:13→17:02)
[2018-02-14] MEDS: cefTRIAXone 1 gm 1 GM/100 ML BAG IVPB SCH (09:14)
[2018-02-14] MEDS: MethylPREDNISolone 40 mg Vial IVP SCH ×2 (09:14→21:35)
[2018-02-14] MEDS: Enoxaparin 40 mg Syringe SC SCH (09:15)
[2018-02-14] MEDS: Azithromycin 250 MG in Sodium Chloride 0.9% 250 ML IVPB SCH (10:37)
--- NOTE | 2018-02-14 11:15 | CP.PCM.PN ---
<Shane Barrios - Last Filed: 02/14/18 11:19> Subjective - Date & Time of Evaluation Date of Evaluation: 02/14/18 Time of Evaluation: 06:00 - Subjective Subjective: Patient seen and evaluated bedside. No acute issues overnight. Patient states his breathing is a little better but still "wants everything out of his chest". Patient denies SOB, fever, chills, nausea, vomiting, or any other complaints at this time. Objective - Vital Signs/Intake and Output Vital Signs (last 24 hours): Temp Pulse Resp BP Pulse Ox 98.2 F 80 19 113/65 100 02/14/18 06:00 02/14/18 06:00 02/14/18 06:00 02/14/18 06:00 02/14/18 06:00 Intake and Output: 02/14/18 02/14/18 06:59 18:59 Intake Total 1300 Output Total 500 Balance 800 - Medications Medications: Current Medications Abacavir Sulfate (Ziagen) 300 mg PO BID [facility]; Protocol Last Admin: 02/14/18 09:13 Dose: 300 mg Albuterol/Ipratropium (Duoneb 3 Mg/0.5 Mg (3 Ml) Ud) 3 ml IH Q6H [facility] Last Admin: 02/14/18 07:32 Dose: 3 ml Albuterol/Ipratropium (Duoneb 3 Mg/0.5 Mg (3 Ml) Ud) 3 ml IH Q2H PRN PRN Reason: Wheezing Last Admin: 02/13/18 08:20 Dose: 3 ml Alprazolam (Xanax) 0.25 mg PO TID PRN; Protocol PRN Reason: Anxiety Stop: 02/20/18 05:15 Last Admin: 02/14/18 09:15 Dose: 0.25 mg Aspirin (Aspirin Chewable) 81 mg PO DAILY [facility] Last Admin: 02/14/18 09:13 Dose: 81 mg Budesonide (Pulmicort Respules) 0.25 mg IH [id number] [facility] Last Admin: 02/14/18 07:32 Dose: 0.25 mg Dextrose (Dextrose 50% Inj) 0 ml IV STAT PRN; Protocol PRN Reason: Hypoglycemia Protocol Enoxaparin Sodium (Lovenox) 40 mg SC DAILY [facility]; Protocol Last Admin: 02/14/18 09:15 Dose: 40 mg Famotidine (Pepcid) 10 mg PO BID [facility] Last Admin: 02/14/18 09:14 Dose: 10 mg Gabapentin (Neurontin) 300 mg PO TID [facility]; Protocol Last Admin: 02/14/18 09:11 Dose: 300 mg Guaifenesin/Dextromethorphan (Mucinex-Dm 600-30 Mg) 1 tab PO BID [facility] Last Admin: 02/14/18 09:13 Dose: 1 tab Guaifenesin/Dextromethorphan (Robitussin Dm) 5 ml PO Q4H PRN PRN Reason: Cough Last Admin: 02/14/18 08:11 Dose: 5 ml Dextrose (Dextrose 5% In Water 1000 Ml) 1,000 mls @ 0 mls/hr IV .Q0M PRN; Protocol PRN Reason: Hypoglycemia Protocol Ceftriaxone Sodium (Rocephin 1 Gram Ivpb) 1 gm in 100 mls @ 100 mls/hr IVPB DAILY [facility]; Protocol Last Admin: 02/14/18 09:14 Dose: 100 mls/hr Azithromycin 250 mg/ Sodium (Chloride) 250 mls @ 167 mls/hr IVPB DAILY [facility]; P rotocol Last Admin: 02/14/18 10:37 Dose: 167 mls/hr Sodium Chloride (Sodium Chloride 0.9%) 1,000 mls @ 100 mls/hr IV .Q10H [facility] Last Admin: 02/13/18 18:10 Dose: 100 mls/hr Insulin Detemir (Levemir) 25 unit SC HS [facility] Last Admin: 02/13/18 21:35 Dose: 25 units Insulin Human Regular (Humulin R High) 0 units SC ACHS [facility]; Protocol Last Admin: 02/14/18 08:09 Dose: Not Given Methylprednisolone (Solu-Medrol) 20 mg IVP Q12 [facility] Last Admin: 02/14/18 09:14 Dose: 20 mg Montelukast Sodium (Singulair) 10 mg PO HS [facility] Last Admin: 02/13/18 21:20 Dose: 10 mg Raltegravir (Isentress) 600 mg PO DAILY [facility]; Protocol Last Admin: 02/14/18 09:13 Dose: 600 mg Spironolactone (Aldactone) 25 mg PO DAILY [facility] Last Admin: 02/14/18 09:13 Dose: 25 mg - Labs Labs: 02/14/18 07:00 02/14/18 07:00 PT 12.5 SECONDS (9.4-12.5) 02/13/18 02:04 INR 1.09 02/13/18 02:04 APTT 27.2 Seconds (25.1-36.5) 02/13/18 02:04 - Constitutional Appears: No Acute Distress, Unkempt - Head Exam Head Exam: ATRAUMATIC, NORMAL INSPECTION, NORMOCEPHALIC - Eye Exam Eye Exam: EOMI, Normal appearance Pupil Exam: NORMAL ACCOMODATION - ENT Exam ENT Exam: Mucous Membranes Moist - Neck Exam Neck Exam: Normal Inspection - Respiratory Exam Respiratory Exam: Wheezes - Cardiovascular Exam Cardiovascular Exam: REGULAR RHYTHM, +S1, +S2 - GI/Abdominal Exam GI & Abdominal Exam: Soft. absent: Tenderness - Neurological Exam Neurological Exam: Alert, Awake, Oriented x3 - Skin Skin Exam: Dry, Warm Assessment and Plan - Assessment and Plan (Free Text) Assessment: 63yo male PMHx COPD, HIV on HAART, DM2, Hep C, pancreatitis, and cataracts presents for SOB and cough for 2 days. Patient admitted to med/surg for further management. Plan: COPD exacerbation -Duoneb 3ml inh q6 deep and q2 prn -Solumedrol 20q12 -IV Azithromycin and IV Rocephin -Mucinex 1tab bid -Robitussin PRN -Singulair 10mg hs -rapid flu negative -procal .35 -blood cultures 24 hour no growth -NC o2 2L to keep sat 88-92% -Pulm consulted, Dr. Browning, follow recs K[facility] -likely secondary to dehydration -Cr 1.3 from 1.4 yesterday -NS@100 -follow up BMP daily Hx of HIV on HAART -Abacavir and Raltegravir -f/u CD4 count -ID Dr. Thompson consulted, follow recs Hx of DM2 -8.4 A1C -AM glucose was 91 -Accucheck achs -ISS Low -Levemir 25u hs -continue to monitor Hx of Neuropathy-diabetic -Neurontin 300 tid Hx of Drug use -counselled on drug cessation GI ppx: renally adjusted Pepcid 10mg bid DVT ppx: Lovenox and SCDs Diet: HHD with [facility] Physical therapy : recommend TCU <Ariel,Anwar A - Last Filed: 02/14/18 13:04> Objective - Vital Signs/Intake and Output Vital Signs (last 24 hours): Temp Pulse Resp BP Pulse Ox 98.2 F 80 19 113/65 100 02/14/18 06:00 02/14/18 06:00 02/14/18 06:00 02/14/18 06:00 02/14/18 06:00 Intake and Output: 02/14/18 02/14/18 06:59 18:59 Intake Total 1300 Output Total 500 Balance 800 - Medications Medications: Current Medications Abacavir Sulfate (Ziagen) 300 mg PO BID [facility]; Protocol Last Admin: 02/14/18 09:13 Dose: 300 mg Albuterol/Ipratropium (Duoneb 3 Mg/0.5 Mg (3 Ml) Ud) 3 ml IH Q6H [facility] Last Admin: 02/14/18 07:32 Dose: 3 ml Albuterol/Ipratropium (Duoneb 3 Mg/0.5 Mg (3 Ml) Ud) 3 ml IH Q2H PRN PRN Reason: Wheezing Last Admin: 02/13/18 08:20 Dose: 3 ml Alprazolam (Xanax) 0.25 mg PO TID PRN; Protocol PRN Reason: Anxiety Stop: 02/20/18 05:15 Last Admin: 02/14/18 09:15 Dose: 0.25 mg Aspirin (Aspirin Chewable) 81 mg PO DAILY [facility] Last Admin: 02/14/18 09:13 Dose: 81 mg Budesonide (Pulmicort Respules) 0.25 mg IH [id number] [facility] Last Admin: 02/14/18 07:32 Dose: 0.25 mg Dextrose (Dextrose 50% Inj) 0 ml IV STAT PRN; Protocol PRN Reason: Hypoglycemia Protocol Enoxaparin Sodium (Lovenox) 40 mg SC DAILY [facility]; Protocol Last Admin: 02/14/18 09:15 Dose: 40 mg Famotidine (Pepcid) 10 mg PO BID [facility] Last Admin: 02/14/18 09:14 Dose: 10 mg Gabapentin (Neurontin) 300 mg PO TID [facility]; Protocol Last Admin: 02/14/18 09:11 Dose: 300 mg Guaifenesin/Dextromethorphan (Mucinex-Dm 600-30 Mg) 1 tab PO BID [facility] Last Admin: 02/14/18 09:13 Dose: 1 tab Guaifenesin/Dextromethorphan (Robitussin Dm) 5 ml PO Q4H PRN PRN Reason: Cough Last Admin: 02/14/18 08:11 Dose: 5 ml Dextrose (Dextrose 5% In Water 1000 Ml) 1,000 mls @ 0 mls/hr IV .Q0M PRN; Protocol PRN Reason: Hypoglycemia Protocol Ceftriaxone Sodium (Rocephin 1 Gram Ivpb) 1 gm in 100 mls @ 100 mls/hr IVPB DAILY [facility]; Protocol Last Admin: 02/14/18 09:14 Dose: 100 mls/hr Azithromycin 250 mg/ Sodium (Chloride) 250 mls @ 167 mls/hr IVPB DAILY [facility]; Protocol Last Admin: 02/14/18 10:37 Dose: 167 mls/hr Sodium Chloride (Sodium Chloride 0.9%) 1,000 mls @ 100 mls/hr IV .Q10H [facility] Last Admin: 02/13/18 18:10 Dose: 100 mls/hr Insulin Detemir (Levemir) 25 unit SC HS [facility] Last Admin: 02/13/18 21:35 Dose: 25 units Insulin Human Regular (Humulin R Low) 0 units SC ACHS [facility]; Protocol Last Admin: 02/14/18 11:37 Dose: 2 unit Methylprednisolone (Solu-Medrol) 20 mg IVP Q12 [facility] Last Admin: 02/14/18 09:14 Dose: 20 mg Montelukast Sodium (Singulair) 10 mg PO HS [facility] Last Admin: 02/13/18 21:20 Dose: 10 mg Raltegravir (Isentress) 600 mg PO DAILY [facility]; Protocol Last Admin: 02/14/18 09:13 Dose: 600 mg Spironolactone (Aldactone) 25 mg PO DAILY [facility] Last Admin: 02/14/18 09:13 Dose: 25 mg - Labs Labs: 02/14/18 07:00 02/14/18 07:00 PT 12.5 SECONDS (9.4-12.5) 02/13/18 02:04 INR 1.09 02/13/18 02:04 APTT 27.2 Seconds (25.1-36.5) 02/13/18 02:04 Attending/Attestation - Attestation I have personally seen and examined this patient.: Yes I have fully participated in the care of the patient.: Yes I have reviewed all pertinent clinical information, including history, physical exam and plan: Yes Notes (Text): 02/14/18 13:00 63 year old male with past medical history of HIV, diabetes, hepatitis C, and COPD who presented with shortness of breath secondary to COPD exacerbation. Continue with iv steroids, antibiotics and duonebs. Pulmonary evaluation was appreciated. He is on insulin ss and levemir for diabetes. He is on gabapentin for chronic diabetic neuropathy. He initially has KELTON which improved with iv fluids. Continue to monitor closely. ID is also following for HIV. PT evaluat ion was appreciated who recommended TCU. Will discuss with patient and lining caser. Tamara George MD Hospitalist.
[2018-02-14] MEDS: Insulin Reg-LOW-Coverage SC SCH ×3 (11:37→21:34)
[2018-02-14] MEDS ORDERED: Potassium Chloride 40 mEq/30 ml LIQ UD PO ONE (13:06)
[2018-02-14] MEDS: Sodium Chloride 0.9% 1,000 ML IV SCH (13:17)
[2018-02-14 13:58] LABS: IRON 22 ug/dL (45-180)
[2018-02-14 14:08] LABS: % IRON SATURATION 7 % (20-55); TOTAL IRON BINDING CAPACITY 294 ug/dL (261-462)
--- NOTE | 2018-02-14 18:30 | CP.PCM.PN ---
Subjective - Date & Time of Evaluation Date of Evaluation: 02/14/18 Time of Evaluation: 17:00 - Subjective Subjective: Infectious Disease Follow Up: February 14, 2018 63 yo AA male with known HIV and Hepatitis C who is followed at [facility] for his HIV. The is known to have frequent hospi talizations at [facility], [facility], and [facility]. Medical history includes HTN, DM, emphysema, pancreatitis, and back pain secondary multiple issues like spinal osteomyelitis. Patient had been admitted to multiple hospitals including [facility], [facility], and [facility]. He presents to [facility] this time with shortness of breath and productive chronic cough. He is known to be non-compliant with medications other than his HAART. He was last admitted in [facility] in November 2017 and recently discharged from [facility] care on January 29, 2018. Extremely poor insight into his medical issues. The patient has a CD4 count < 50. Undetectable viral load in October 2017. Patient stating that he is unwilling to leave the hospital until he feels ready to leave. Objective - Vital Signs/Intake and Output Vital Signs (last 24 hours): Temp Pulse Resp BP Pulse Ox 98.8 F 71 19 104/70 99 02/14/18 17:03 02/14/18 17:03 02/14/18 17:03 02/14/18 17:03 02/14/18 17:03 Intake and Output: 02/14/18 02/14/18 06:59 18:59 Intake Total 1300 Output Total 500 Balance 800 - Medications Medications: Current Medications Abacavir Sulfate (Ziagen) 300 mg PO BID [facility]; Protocol Last Admin: 02/14/18 17:01 Dose: 300 mg Albuterol/Ipratropium (Duoneb 3 Mg/0.5 Mg (3 Ml) Ud) 3 ml IH Q6H [facility] Last Admin: 02/14/18 13:24 Dose: 3 ml Albuterol/Ipratropium (Duoneb 3 Mg/0.5 Mg (3 Ml) Ud) 3 ml IH Q2H PRN PRN Reason: Wheezing Last Admin: 02/13/18 08:20 Dose: 3 ml Alprazolam (Xanax) 0.25 mg PO TID PRN; Protocol PRN Reason: Anxiety Stop: 02/20/18 05:15 Last Admin: 02/14/18 09:15 Dose: 0.25 mg Aspirin (Aspirin Chewable) 81 mg PO DAILY [facility] Last Admin: 02/14/18 09:13 Dose: 81 mg Budesonide (Pulmicort Respules) 0.25 mg IH [id number] [facility] Last Admin: 02/14/18 07:32 Dose: 0.25 mg Dextrose (Dextrose 50% Inj) 0 ml IV STAT PRN; Protocol PRN Reason: Hypoglycemia Protocol Enoxaparin Sodium (Lovenox) 40 mg SC DAILY [facility]; Protocol Last Admin: 02/14/18 09:15 Dose: 40 mg Famotidine (Pepcid) 10 mg PO BID [facility] Last Admin: 02/14/18 17:01 Dose: 10 mg Gabapentin (Neurontin) 300 mg PO TID [facility]; Protocol Last Admin: 02/14/18 17:02 Dose: 300 mg Guaifenesin/Dextromethorphan (Mucinex-Dm 600-30 Mg) 1 tab PO BID [facility] Last Admin: 02/14/18 17:02 Dose: 1 tab Guaifenesin/Dextromethorphan (Robitussin Dm) 5 ml PO Q4H PRN PRN Reason: Cough Last Admin: 02/14/18 16:58 Dose: 5 ml Dextrose (Dextrose 5% In Water 1000 Ml) 1,000 mls @ 0 mls/hr IV .Q0M PRN; Protocol PRN Reason: Hypoglycemia Protocol Ceftriaxone Sodium (Rocephin 1 Gram Ivpb) 1 gm in 100 mls @ 100 mls/hr IVPB DAILY [facility]; Protocol Last Admin: 02/14/18 09:14 Dose: 100 mls/hr Azithromycin 250 mg/ Sodium (Chloride) 250 mls @ 167 mls/hr IVPB DAILY [facility]; Protocol Last Admin: 02/14/18 10:37 Dose: 167 mls/hr Sodium Chloride (Sodium Chloride 0.9%) 1,000 mls @ 100 mls/hr IV .Q10H [facility] Last Admin: 02/14/18 13:17 Dose: 100 mls/hr Insulin Detemir (Levemir) 25 unit SC HS [facility] Last Admin: 02/13/18 21:35 Dose: 25 units Insulin Human Regular (Humulin R Low) 0 units SC ACHS [facility]; Protocol Last Admin: 02/14/18 16:56 Dose: 4 unit Methylprednisolone (Solu-Medrol) 20 mg IVP Q12 [facility] Last Admin: 02/14/18 09:14 Dose: 20 mg Montelukast Sodium (Singulair) 10 mg PO HS [facility] Last Admin: 02/13/18 21:20 Dose: 10 mg Raltegravir (Isentress) 600 mg PO DAILY [facility]; Protocol Last Admin: 02/14/18 09:13 Dose: 600 mg Spironolactone (Aldactone) 25 mg PO DAILY [facility] Last Admin: 02/14/18 09:13 Dose: 25 mg - Labs Labs: 02/14/18 07:00 02/14/18 07:00 PT 12.5 SECONDS (9.4-12.5) 02/13/18 02:04 INR 1.09 02/13/18 02:04 APTT 27.2 Seconds (25.1-36.5) 02/13/18 02:04 - Constitutional Appears: No Acute Distress, Unkempt - Head Exam Head Exam: ATRAUMATIC, NORMOCEPHALIC - Eye Exam Eye Exam: EOMI, PERRL Pupil Exam: NORMAL ACCOMODATION, PERRL - ENT Exam ENT Exam: Mucous Membranes Moist, Normal External Ear Exam, TM's Normal Bilaterally - Neck Exam Neck Exam: Full ROM, Normal Inspection - Respiratory Exam Respiratory Exam: Decreased Breath Sounds, NORMAL BREATHING PATTERN. absent: Rales, Rhonchi, Wheezes - Cardiovascular Exam Cardiovascular Exam: REGULAR RHYTHM, RRR, +S1, +S2 - GI/Abdominal Exam GI & Abdominal Exam: Soft, Normal Bowel Sounds. absent: Distended, Tenderness - Extremities Exam Extremities Exam: Full ROM, Normal Inspection - Neurological Exam Neurological Exam: Alert, Awake, CN II-XII Intact, Oriented x3 - Psychiatric Exam Psychiatric exam: Normal Affect, Normal Mood - Skin Skin Exam: Intact, Normal Color Assessment and Plan - Assessment and Plan (Free Text) Assessment: 63 yo AA male well known to me from prior hospitalizations to [facility] and [facility]. Presentation of SOB. Recent CD4 and Viral loads noted. The patient at least takes his HAART therapy as the HIV viral load in October 2017 was undetectable. Low CD4 count may be consequence of the patient's bone marrow being burned out from years of uncontrolled HIV. Possible COPD exacerbation. Continue antibioti c prophylaxis with Bactrim DS and Azithromycin for PCP and Mycobacterium for CD4 counts less than 50. Continue on HAART of Abacavir and Raltgravir. Supportive care. Mild leukocytosis. Chest X-ray no active cardiopulmonary disease. On Rocephin and Azithromycin for care which is reasonable for now. Cultures negative for growth so far. Multiple chronic medical issues. Thank you for allowing me to participate in the care of the patient, we will follow with you.
[2018-02-14] MEDS: Insulin Detemir 100 units/ml Vial (Levemir) SC SCH (21:37)
--- NOTE | 2018-02-15 00:10 | PN ---
DATE: 02/14/2018 PULMONARY PROGRESS NOTE REFERRING PHYSICIAN: Dr. George. SUBJECTIVE: He is lying in the bed, head at 45 degrees. Not very happy, one more pain medication. No headache. No rhinitis. No nausea. No vomiting. No diarrhea. No leg swelling. OBJECTIVE: GENERAL: In no acute distress. VITAL SIGNS: Temperature is 98, heart rate is 71, respiratory rate is 20, blood pressure 104/70, pulse ox 99% 2 liter nasal cannula. HEENT: Moist mucous membrane. Crowded airway. NECK: Supple. No JVD. LUNGS: Have fair airflow. No rhonchi. HEART: S1 and S2. ABDOMEN: Soft and nontender. No organomegaly. EXTREMITIES: There is no edema. NEUROLOGIC: Awake and alert. Follows simple command. MEDICATIONS: He is on Aldactone 25 mg daily, aspirin 81 mg daily, Zithromax 250 mg daily, DuoNeb every 12 hours p.r.n., insulin coverage, Isentress 600 mg daily, Levemir 25 units subcu at bedtime, Lovenox 40 mg subcu daily, Mucinex DM 600/30 one tab twice a day, gabapentin 300 mg three times a day, Pepcid 10 mg twice a day, Pulmicort inhaled twice a day, Robitussin DM 5 mL every 4 hours p.r.n., Rocephin 1 g IV daily, Singulair 10 mg at bedtime, IV fluid normal saline 100 mL per hour, Solu-Medrol 20 mg every 12 hours, Xanax 0.25 mg three times a day, Ziagen 300 mg twice a day. LABORATORY DATA: Shows hemoglobin 8, hematocrit 27.5, WBC 13, platelet count is 307. Sodium 142, potassium of 3.5, chloride of 108, bicarbonate 28, BUN 27, creatinine 1.3, glucose is 97, calcium is 9, phosphorus 3.1, magnesium 2.1, iron is 22, AST 17, ALT 17, alk phos is 75, albumin 3.3. Microbiology: Blood culture is negative. IMPRESSION AND PLAN: Chronic obstructive lung disease, history of substance abuse, human immunodeficiency virus positive, diabetes, hypertension, history of pancreatitis, multiple joint pains. Pulmonary point of view, doing okay. Continue bronchodilator, keep head at 45 degrees. Continue antiviral medication. Gastric prophylaxis. Pain management as per his primary team. Fall precaution. Thank you and we will follow with you. Ventura Browning MD
[2018-02-15] MEDS: Albuterol-Ipratrop 3 mg / 0.5 (3 ml) UD IH SCH ×3 (02:34→11:02)
[2018-02-15 07:26] VITALS: BP 111/77; PULSE 72; RESP 20; TEMP 98.1; O2SAT 100
--- NOTE | 2018-02-15 07:44 | CP.PCM.PN ---
Subjective - Date & Time of Evaluation Date of Evaluation: 02/15/18 Time of Evaluation: 07:44 - Subjective Subjective: PGY-1 Medicine Progress Note Objective - Vital Signs/Intake and Output Vital Signs (last 24 hours): Temp Pulse Resp BP Pulse Ox 98.1 F 72 20 111/77 100 02/15/18 06:00 02/15/18 06:00 02/15/18 06:00 02/15/18 06:00 02/15/18 06:00 - Medications Medications: Current Medications Abacavir Sulfate (Ziagen) 300 mg PO BID [facility]; Protocol Last Admin: 02/14/18 17:01 Dose: 300 mg Albuterol/Ipratropium (Duoneb 3 Mg/0.5 Mg (3 Ml) Ud) 3 ml IH Q6H [facility] Last Admin: 02/15/18 02:34 Dose: 3 ml Albuterol/Ipratropium (Duoneb 3 Mg/0.5 Mg (3 Ml) Ud) 3 ml IH Q2H PRN PRN Reason: Wheezing Last Admin: 02/13/18 08:20 Dose: 3 ml Alprazolam (Xanax) 0.25 mg PO TID PRN; Protocol PRN Reason: Anxiety Stop: 02/20/18 05:15 Last Admin: 02/14/18 21:48 Dose: 0.25 mg Aspirin (Aspirin Chewable) 81 mg PO DAILY [facility] Last Admin: 02/14/18 09:13 Dose: 81 mg Budesonide (Pulmicort Respules) 0.25 mg IH [id number] [facility] Last Admin: 02/14/18 20:57 Dose: 0.25 mg Dextrose (Dextrose 50% Inj) 0 ml IV STAT PRN; Protocol PRN Reason: Hypoglycemia Protocol Enoxaparin Sodium (Lovenox) 40 mg SC DAILY [facility]; Protocol Last Admin: 02/14/18 09:15 Dose: 40 mg Famotidine (Pepcid) 10 mg PO BID [facility] Last Admin: 02/14/18 17:01 Dose: 10 mg Gabapentin (Neurontin) 300 mg PO TID [facility]; Protocol Last Admin: 02/14/18 17:02 Dose: 300 mg Guaifenesin/Dextromethorphan (Mucinex-Dm 600-30 Mg) 1 tab PO BID [facility] Last Admin: 02/14/18 17:02 Dose: 1 tab Guaifenesin/Dextromethorphan (Robitussin Dm) 5 ml PO Q4H PRN PRN Reason: Cough Last Admin: 02/14/18 16:58 Dose: 5 ml Dextrose (Dextrose 5% In Water 1000 Ml) 1,000 mls @ 0 mls/hr IV .Q0M PRN; Protocol PRN Reason: Hypoglycemia Protocol Ceftriaxone Sodium (Rocephin 1 Gram Ivpb) 1 gm in 100 mls @ 100 mls/hr IVPB DAILY [facility]; Protocol Last Admin: 02/14/18 09:14 Dose: 100 mls/hr Azithromycin 250 mg/ Sodium (Chloride) 250 mls @ 167 mls/hr IVPB DAILY [facility]; Protocol Last Admin: 02/14/18 10:37 Dose: 167 mls/hr Sodium Chloride (Sodium Chloride 0.9%) 1,000 mls @ 100 mls/hr IV .Q10H [facility] Last Admin: 02/14/18 13:17 Dose: 100 mls/hr Insulin Detemir (Levemir) 25 unit SC HS [facility] Last Admin: 02/14/18 21:37 Dose: 25 units Insulin Human Regular (Humulin R Low) 0 units SC ACHS [facility]; Protocol Last Admin: 02/14/18 21:34 Dose: Not Given Methylprednisolone (Solu-Medrol) 20 mg IVP Q12 [facility] Last Admin: 02/14/18 21:35 Dose: 20 mg Montelukast Sodium (Singulair) 10 mg PO HS [facility] Last Admin: 02/14/18 21:35 Dose: 10 mg Raltegravir (Isentress) 600 mg PO DAILY [facility]; Protocol Last Admin: 02/14/18 09:13 Dose: 600 mg Spironolactone (Aldactone) 25 mg PO DAILY [facility] Last Admin: 02/14/18 09:13 Dose: 25 mg - Labs Labs: 02/14/18 07:00 02/14/18 07:00 PT 12.5 SECONDS (9.4-12.5) 02/13/18 02:04 INR 1.09 02/13/18 02:04 APTT 27.2 Seconds (25.1-36.5) 02/13/18 02:04
[2018-02-15] MEDS: Insulin Reg-LOW-Coverage SC SCH ×2 (07:50→11:53)
[2018-02-15] MEDS: Budesonide 0.25 mg/2 ml Inhal Susp UD IH SCH (08:10)
[2018-02-15] MEDS: Enoxaparin 40 mg Syringe SC SCH ×2 (09:23→11:41)
[2018-02-15] MEDS: guaiFENesin-DM 600-30 mg ER Tab PO SCH (09:23)
[2018-02-15] MEDS: cefTRIAXone 1 gm 1 GM/100 ML BAG IVPB SCH ×2 (09:24→11:45)
[2018-02-15] MEDS: MethylPREDNISolone 40 mg Vial IVP SCH ×2 (09:25→11:45)
[2018-02-15] MEDS: guaiFENesin DM 100 mg-10 mg/5 ml UD PO PRN (09:26)
[2018-02-15] MEDS: Azithromycin 250 MG in Sodium Chloride 0.9% 250 ML IVPB SCH (11:42)
[2018-02-15] MEDS: Sodium Chloride 0.9% 1,000 ML IV SCH (11:45)
--- NOTE | 2018-02-15 14:38 | CP.PCM.DIS ---
<VidallindajustusEduardo - Last Filed: 02/15/18 16:08> Provider - Provider Date of Admission: 02/13/18 18:48 Attending physician: Dulce Rodriguez MD Primary care physician: Maliha Holman MD Time Spent in preparation of Discharge (in minutes): 40 Hospital Course - Lab Results Lab Results: Micro Results 02/13/18 07:40 Blood-Venous Blood Culture - Preliminary NO GROWTH AFTER 48 HOURS 02/13/18 08:00 Blood-Venous Blood Culture - Preliminary NO GROWTH AFTER 48 HOURS Most Recent Lab Values WBC 13.0 10^3/uL (4.5-11.0) H 02/14/18 07:00 RBC 3.44 10^6/uL (3.5-6.1) L 02/14/18 07:00 Hgb 8.0 g/dL (14.0-18.0) L 02/14/18 07:00 Hct 27.5 % (42.0-52.0) L 02/14/18 07:00 MCV 79.9 fl (80.0-105.0) L 02/14/18 07:00 MCH 23.3 pg (25.0-35.0) L 02/14/18 07:00 MCHC 29.1 g/dl (31.0-37.0) L 02/14/18 07:00 RDW 15.9 % (11.5-14.5) H 02/14/18 07:00 Plt Count 307 10^3/uL (120.0-450.0) 02/14/18 07:00 MPV 9.7 fl (7.0-11.0) 02/14/18 07:00 Gran % 82.2 % (50.0-68.0) H 02/14/18 07:00 Lymph % (Auto) 12.5 % (22.0-35.0) L 02/14/18 07:00 Elmore % (Auto) 5.2 % (1.0-6.0) 02/14/18 07:00 Eos % (Auto) 0.1 % (1.5-5.0) L 02/14/18 07:00 Baso % (Auto) 0.0 % (0.0-3.0) 02/14/18 07:00 Gran # 10.69 (1.4-6.5) H 02/14/18 07:00 Lymph # (Auto) 1.6 (1.2-3.4) 02/14/18 07:00 Elmore # (Auto) 0.7 (0.1-0.6) H 02/14/18 07:00 Eos # (Auto) 0.0 (0.0-0.7) 02/14/18 07:00 Baso # (Auto) 0.00 K/mm3 (0.0-2.0) 02/14/18 07:00 PT 12.5 SECONDS (9.4-12.5) 02/13/18 02:04 INR 1.09 02/13/18 02:04 APTT 27.2 Seconds (25.1-36.5) 02/13/18 02:04 Sodium 142 mmol/L (132-148) 02/14/18 07:00 Potassium 3.5 mmol/L (3.6-5.0) L 02/14/18 07:00 Chloride 108 mmol/L (98-107) H 02/14/18 07:00 Carbon Dioxide 28 mmol/L (21-33) 02/14/18 07:00 Anion Gap 9 (10-20) L 02/14/18 07:00 BUN 27 mg/dL (7-21) H 02/14/18 07:00 Creatinine 1.3 mg/dl (0.8-1.5) 02/14/18 07:00 Est GFR ( Amer) > 60 02/14/18 07:00 Est GFR (Non-Af Amer) 56 02/14/18 07:00 POC Glucose (mg/dL) 145 mg/dL (65-110) H 02/15/18 07:18 Random Glucose 97 mg/dL (70-110) 02/14/18 07:00 Hemoglobin A1c 8.4 % (4.2-6.5) H D 02/13/18 07:40 Calcium 9.0 mg/dL (8.4-10.5) 02/14/18 07:00 Phosphorus 3.1 mg/dL (2.5-4.5) 02/14/18 07:00 Magnesium 2.1 mg/dL (1.7-2.2) 02/14/18 07:00 Iron 22 ug/dL (45-180) L 02/14/18 08:00 TIBC 294 ug/dL (261-462) 02/14/18 08:00 % Saturation 7 % (20-55) L 02/14/18 08:00 Ferritin 21.5 ng/mL 02/14/18 08:00 Total Bilirubin 0.2 mg/dL (0.2-1.3) 02/14/18 07:00 AST 17 U/L (17-59) D 02/14/18 07:00 ALT 17 U/L (7-56) 02/14/18 07:00 Alkaline Phosphatase 75 U/L (38-126) 02/14/18 07:00 Lactate Dehydrogenase 489 U/L (333-699) 02/13/18 02:04 Total Creatine Kinase 84 U/L (35-230) 02/13/18 02:04 Troponin I < 0.01 ng/mL 02/13/18 02:04 NT-Pro-B Natriuret Pep 282 pg/mL (0-450) 02/13/18 02:04 Total Protein 6.3 g/dL (5.8-8.3) 02/14/18 07:00 Albumin 3.3 g/dL (3.0-4.8) 02/14/18 07:00 Globulin 3.1 gm/dL 02/14/18 07:00 Albumin/Globulin Ratio 1.1 (1.1-1.8) 02/14/18 07:00 Procalcitonin 0.35 NG/ML (0.19-0.49) 02/13/18 07:40 Alcohol, Quantitative < 10 mg/dL (0-10) 02/13/18 07:40 Influenza Typ A,B (EIA) Negative for flu a/b (NEGATIVE) 02/13/18 10:00 - Hospital Course Hospital Course: HPI: 63 yo male with known HIV and Hepatitis C who is followed at [facility] for his HIV. The patient is known to have frequent hospitalizations at [facility], [facility], and [facility]. Medical history includes hypertension, diabetes mellitus, emphysema, pancreatitis, and back pain secondary to multiple issues like spinal osteomyelitis. Patient had been admitted to multiple hospitals including [facility], [facility], and [facility]. He presents to [facility] this time with worsening shortness of breath and productive chronic cough. He is known to be non-compliant with medications other than his HAART medications. He was last admitted in [facility] in November 2017 and recently discharged from [facility] for subacute rehabilitation care on January 29, 2018. Patient has extremely poor insight into his medical issues. The patient has a CD4 count < 50. Undetectable viral load in October 2017. During course of admission, Infectious Disease (Dr. Thompson) was consulted for HIV management. Per recommendations, patient was given supportive care. He was continued on his HAART medications of Abacavir and Raltgravir. Chest XR obtained demonstrated no active cardiopulmonary disease. Patient was placed on rocephin and azithromycin for care. Cultures were negative for growth during course of admission. Pulmonology (Dr. Browning) was consulted for patient's respiratory symptoms in setting of COPD. Per recommendations, patient was continued on IV and inhaled bronchodilators, continue antbiotics and antiviral medications. Pulmonary function tests were recommended in outpatient setting. Patient remained afebrile, with mild leukocytosis that remained stable. Respiratory symptoms continued to improve. No growth was noted on Blood cultures after 48 hours. Patient is medically stable for admission, per Dr. Garrett. He is instructed to follow up with his primary care provider (Dr. Holman) within 1 week of discharge for continued care and medication management. Patient is instructed to take all home medications as currently prescribed, with scripts provided as needed. He was instructed to return to the ED if symptoms worsen. The following is a summary of hospital course. For full detail, please refer to patient's EMR. - Date & Time of H&P Date of H&P: 02/15/18 Time of H&P: 11:30 Discharge Exam - Head Exam Head Exam: ATRAUMATIC, NORMAL INSPECTION, NORMOCEPHALIC - Eye Exam Eye Exam: EOMI, Normal appearance Pupil Exam: NORMAL ACCOMODATION, PERRL - ENT Exam ENT Exam: Mucous Membranes Moist, Normal Exam - Neck Exam Neck exam: Full Rom, Normal Inspection - Respiratory Exam Respiratory Exam: Decreased Breath Sounds, NORMAL BREATHING PATTERN. absent: Rales, Rhonchi, Wheezes, Respiratory Distress, Stridor - Cardiovascular Exam Cardiovascular Exam: REGULAR RHYTHM, +S1, +S2 - GI/Abdominal Exam GI & Abdominal Exam: Normal Bowel Sounds, Soft, Unremarkable. absent: Distended, Firm, Guarding, Rebound, Rigid, Tenderness - Extremities Exam Extremities exam: normal capillary refill, pedal pulses present - Back Exam Back exam: NORMAL INSPECTION - Neurological Exam Neurological exam: Alert, Normal Gait, Oriented x3 - Psychiatric Exam Psychiatric exam: Normal Affect, Normal Mood - Skin Skin Exam: Dry, Intact, Normal Color, Warm Discharge Plan - Discharge Medications Prescriptions: RX: Abacavir [Ziagen] 300 mg PO BID #60 tab RX: Albuterol HFA [Ventolin HFA 90 mcg/actuation (8 g)] 1 puff IH PRN PRN #1 inhaler PRN Reason: Shortness Of Breath RX: ALPRAZolam [Xanax] 0.25 mg PO TID PRN #90 tab PRN Reason: Anxiety RX: amLODIPine [Norvasc] 5 mg PO DAILY #30 tab RX: Budesonide/Formoterol Fumarate [Symbicort 160-4.5 Mcg Inhaler] 1 aer IH BID #1 aer RX: Famotidine [Pepcid] 20 mg PO DAILY #30 tab RX: Furosemide [Lasix] 20 mg PO DAILY #30 tab RX: Gabapentin [Neurontin] 300 mg PO TID #90 cap RX: Lipase/Protease/Amylase [Yong [place] 12,000 Units Capsule] 1 each PO TID #90 capsule. Methylprednisolone [Medrol Dose Pack (21 tabs)] 4 mg PO DAILY #21 mg RX: Montelukast [Singulair] 10 mg PO HS #30 tab RX: Raltegravir Potassium [Isentress Hd] 600 mg PO BID #60 tablet RX: Spironolactone [Aldactone] 25 mg PO DAILY #30 tab RX: Valsartan [Diovan] 1 tab PO DAILY #30 tab - Follow Up Plan Condition: STABLE Disposition: HOME/ ROUTINE Instructions: Exacerbation of COPD (DC), Bacterial Upper Respiratory Infection, Adult (DC) Additional Instructions: Patient is medically stable for discharge, as per Dr. Garrett. Please continue all home medications as currently prescribed. Scripts have been provided as needed. Please follow up with your primary care provider within 1 week of discharge for continued care and medication management. If symptoms worsen, please return to the ED. Referrals: Maliha Holman MD [Primary Care Provider] - <Ventura Garrett - Last Filed: 02/15/18 17:16> Provider - Provider Date of Admission: 02/13/18 18:48 Attending physician: Dulce Rodriguez MD Primary care physician: Maliha Holman MD Hospital Course - Lab Results Lab Results: Micro Results 02/13/18 07:40 Blood-Venous Blood Culture - Preliminary NO GROWTH AFTER 48 HOURS 02/13/18 08:00 Blood-Venous Blood Culture - Preliminary NO GROWTH AFTER 48 HOURS Most Recent Lab Values WBC 13.0 10^3/uL (4.5-11.0) H 02/14/18 07:00 RBC 3.44 10^6/uL (3.5-6.1) L 02/14/18 07:00 Hgb 8.0 g/dL (14.0-18.0) L 02/14/18 07:00 Hct 27.5 % (42.0-52.0) L 02/14/18 07:00 MCV 79.9 fl (80.0-105.0) L 02/14/18 07:00 MCH 23.3 pg (25.0-35.0) L 02/14/18 07:00 MCHC 29.1 g/dl (31.0-37.0) L 02/14/18 07:00 RDW 15.9 % (11.5-14.5) H 02/14/18 07:00 Plt Count 307 10^3/uL (120.0-450.0) 02/14/18 07:00 MPV 9.7 fl (7.0-11.0) 02/14/18 07:00 Gran % 82.2 % (50.0-68.0) H 02/14/18 07:00 Lymph % (Auto) 12.5 % (22.0-35.0) L 02/14/18 07:00 Elmore % (Auto) 5.2 % (1.0-6.0) 02/14/18 07:00 Eos % (Auto) 0.1 % (1.5-5.0) L 02/14/18 07:00 Baso % (Auto) 0.0 % (0.0-3.0) 02/14/18 07:00 Gran # 10.69 (1.4-6.5) H 02/14/18 07:00 Lymph # (Auto) 1.6 (1.2-3.4) 02/14/18 07:00 Elmore # (Auto) 0.7 (0.1-0.6) H 02/14/18 07:00 Eos # (Auto) 0.0 (0.0-0.7) 02/14/18 07:00 Baso # (Auto) 0.00 K/mm3 (0.0-2.0) 02/14/18 07:00 PT 12.5 SECONDS (9.4-12.5) 02/13/18 02:04 INR 1.09 02/13/18 02:04 APTT 27.2 Seconds (25.1-36.5) 02/13/18 02:04 Sodium 142 mmol/L (132-148) 02/14/18 07:00 Potassium 3.5 mmol/L (3.6-5.0) L 02/14/18 07:00 Chloride 108 mmol/L (98-107) H 02/14/18 07:00 Carbon Dioxide 28 mmol/L (21-33) 02/14/18 07:00 Anion Gap 9 (10-20) L 02/14/18 07:00 BUN 27 mg/dL (7-21) H 02/14/18 07:00 Creatinine 1.3 mg/dl (0.8-1.5) 02/14/18 07:00 Est GFR ( Amer) > 60 02/14/18 07:00 Est GFR (Non-Af Amer) 56 02/14/18 07:00 POC Glucose (mg/dL) 234 mg/dL (65-110) H 02/15/18 11:08 Random Glucose 97 mg/dL (70-110) 02/14/18 07:00 Hemoglobin A1c 8.4 % (4.2-6.5) H D 02/13/18 07:40 Calcium 9.0 mg/dL (8.4-10.5) 02/14/18 07:00 Phosphorus 3.1 mg/dL (2.5-4.5) 02/14/18 07:00 Magnesium 2.1 mg/dL (1.7-2.2) 02/14/18 07:00 Iron 22 ug/dL (45-180) L 02/14/18 08:00 TIBC 294 ug/dL (261-462) 02/14/18 08:00 % Saturation 7 % (20-55) L 02/14/18 08:00 Ferritin 21.5 ng/mL 02/14/18 08:00 Total Bilirubin 0.2 mg/dL (0.2-1.3) 02/14/18 07:00 AST 17 U/L (17-59) D 02/14/18 07:00 ALT 17 U/L (7-56) 02/14/18 07:00 Alkaline Phosphatase 75 U/L (38-126) 02/14/18 07:00 Lactate Dehydrogenase 489 U/L (333-699) 02/13/18 02:04 Total Creatine Kinase 84 U/L (35-230) 02/13/18 02:04 Troponin I < 0.01 ng/mL 02/13/18 02:04 NT-Pro-B Natriuret Pep 282 pg/mL (0-450) 02/13/18 02:04 Total Protein 6.3 g/dL (5.8-8.3) 02/14/18 07:00 Albumin 3.3 g/dL (3.0-4.8) 02/14/18 07:00 Globulin 3.1 gm/dL 02/14/18 07:00 Albumin/Globulin Ratio 1.1 (1.1-1.8) 02/14/18 07:00 Procalcitonin 0.35 NG/ML (0.19-0.49) 02/13/18 07:40 Alcohol, Quantitative < 10 mg/dL (0-10) 02/13/18 07:40 Influenza Typ A,B (EIA) Negative for flu a/b (NEGATIVE) 02/13/18 10:00 Attending/Attestation - Attestation I have personally seen and examined this patient.: Yes I have fully participated in the care of the patient.: Yes I have reviewed all pertinent clinical information, including history, physical exam and plan: Yes Notes (Text): 02/15/18 17:13 Medical record note made by the resident after discussion with my direction and input after the patient was personally seen and examined by me. I have reviewed the chart and agree that the record accurately reflects by personal performance of the history, physical exam, data review, and medical decision-making, in the course for the patient. I have also personally directed the plan of care. 63 year old male with past medical history of HIV, diabetes, hepatitis C, COPD and non compliance was admitted with COPD exacerbation, has responded well to Neb/Steroid.His wheezing has improved. He is ambulatory and is feeling at his base line.He wanted to be discharged from hospital, refused to go to SNF. Patient will be discharged home on tapering dose of steroid , Issue of compliance with medication and ongoing smoking was discussed in detail. Prognosis is guarded.
--- NOTE | 2018-02-15 16:38 | IP.NPCORE ---
COPD Progress Note - COPD Progress Note Spirometry Assessment Completed:: No FEV1/FVC<70: No Plan to assess at outpatient follow up: Yes Symptoms:: Increase in Dyspnea, Cough Initial CXR:: no acute pulmonary disease Date:: 02/13/18 ABG Not Indicated (Symptoms Improved): Yes Nebulizers Q2-4 hrs:: Duonebs/Albuterol Therapy Antibiotics (Name/Dose/Frequency):: Azithromycin, Rocephin Antibiotics Not Indicated: No Systemic Steroids w/ methylprednisolone Name/Dose/Frequency:: solumedrol 20 mg Iv q12 Oxygen Delivery Method: Nasal Cannula Oxygen Flow Rate: 2 Smoking cessation counseling all stages copd exacerbation: Yes
--- NOTE | 2018-02-15 16:44 | IP.NPCORE ---
COPD Progress Note - COPD Progress Note FEV1/FVC<70: No Plan to assess at outpatient follow up: Yes Symptoms:: Increase in Dyspnea, Cough Initial CXR:: no active pulmonary disease
--- NOTE | 2018-02-15 17:17 | CP.PCM.PN ---
Subjective - Date & Time of Evaluation Date of Evaluation: 02/15/18 Time of Evaluation: 13:00 - Subjective Subjective: Infectious Disease Follow Up: February 15, 2018 63 yo AA male with known HIV and Hepatitis C who is followed at [facility] for his HIV. The is known to have frequent hospi talizations at [facility], [facility], and [facility]. Medical history includes HTN, DM, emphysema, pancreatitis, and back pain secondary multiple issues like spinal osteomyelitis. Patient had been admitted to multiple hospitals including [facility], [facility], and [facility]. He presents to [facility] this time with shortness of breath and productive chronic cough. He is known to be non-compliant with medications other than his HAART. He was last admitted in [facility] in November 2017 and recently discharged from [facility] care on January 29, 2018. Extremely poor insight into his medical issues. The patient has a CD4 count < 50. Undetectable viral load in October 2017. Currently no SOB or cough. Patient stating that he is unwilling to leave the hospital until he feels ready to leave. Objective - Vital Signs/Intake and Output Vital Signs (last 24 hours): Temp Pulse Resp BP Pulse Ox 98.1 F 72 20 111/77 100 02/15/18 06:00 02/15/18 06:00 02/15/18 06:00 02/15/18 06:00 02/15/18 06:00 - Labs Labs: 02/14/18 07:00 02/14/18 07:00 PT 12.5 SECONDS (9.4-12.5) 02/13/18 02:04 INR 1.09 02/13/18 02:04 APTT 27.2 Seconds (25.1-36.5) 02/13/18 02:04 - Constitutional Appears: Non-toxic, No Acute Distress, Chronically Ill - Head Exam Head Exam: ATRAUMATIC, NORMOCEPHALIC - Eye Exam Eye Exam: EOMI, PERRL Pupil Exam: NORMAL ACCOMODATION, PERRL - ENT Exam ENT Exam: Mucous Membranes Moist, Normal External Ear Exam, TM's Normal Bilaterally - Neck Exam Neck Exam: Full ROM, Normal Inspection - Respiratory Exam Respiratory Exam: Clear to Ausculation Bilateral, NORMAL BREATHING PATTERN. absent: Rales, Rhonchi, Wheezes - Cardiovascular Exam Cardiovascular Exam: REGULAR RHYTHM, RRR, +S1, +S2 - GI/Abdominal Exam GI & Abdominal Exam: Soft, Normal Bowel Sounds. absent: Distended, Tenderness - Extremities Exam Extremities Exam: Full ROM, Normal Inspection - Neurological Exam Neurological Exam: Alert, Awake, CN II-XII Intact, Oriented x3 - Psychiatric Exam Psychiatric exam: Normal Affect, Normal Mood - Skin Skin Exam: Intact, Normal Color Assessment and Plan - Assessment and Plan (Free Text) Assessment: 63 yo AA male well known to me from prior hospitalizations to [facility] and [facility]. Presentation of SOB. Recent CD4 and Viral loads noted. The patient at least takes his HAART therapy as the HIV viral load in October 2017 was undetectable. Low CD4 count may be consequence of the patient's bone marrow being burned out from years of uncontrolled HIV. Possible COPD exacerbation. Continue antibiotic prophylaxis with Bactrim DS and Azithromycin for PCP and Mycobacterium for CD4 counts less than 50. Continue on HAART of Abacavir and Raltgravir. Supportive care. Mild leukocytosis. Chest X-ray no active cardiopulmonary disease. On Rocephin and Azithromycin for care which is reasonable for now. Cultures negative for growth so far. Currently no cough or SOB. Multiple chronic medical issues. Thank you for allowing me to participate in the care of the patient, we will follow with you.
[2018-02-17 12:51] LABS: % CD4 (T HELPER CELL) 30 Percent (30-61); % CD8 (SUPPRESSOR T CELL) 29 Percent (12-42); ABSOLUTE CD4 CELLS 87 Cells/mcL (490-1740); ABSOLUTE CD8 CELLS 86 Cells/mcL (180-1170); ABSOLUTE LYMPHOCYTES 294 Cells/mcL (850-3900); HELPER/SUPPRESSOR RATIO 1.01 Ratio (0.86-5.00)
== END 2018-02-15 15:32 | disposition home or self-care (01) | DRG 191 ==
LOC: ED 01:28 → ERH 04:47 → 3RSO 07:26 → OBSVTOIN 18:48
PROVIDERS: ADMIT Hospitalist; ATTEND Internal Medicine
DX: J44.1 Chronic obstructive pulmonary disease with (acute) exacerbation (principal); N17.9 Acute kidney failure, unspecified; I10 Essential (primary) hypertension; E11.40 Type 2 diabetes mellitus with diabetic neuropathy, unspecified; B19.20 Unspecified viral hepatitis C without hepatic coma; M10.9 Gout, unspecified; E86.0 Dehydration; Z91.14 Patient's other noncompliance with medication regimen; M54.9 Dorsalgia, unspecified; Z87.891 Personal history of nicotine dependence; Z21 Asymptomatic human immunodeficiency virus [HIV] infection status; D72.829 Elevated white blood cell count, unspecified; E11.69 Type 2 diabetes mellitus with other specified complication; Z79.4 Long term (current) use of insulin; Z91.19 Patient's noncompliance with other medical treatment and regimen; Z98.41 Cataract extraction status, right eye

== ENCOUNTER 2018-03-01 19:00 | Inpatient (IN) | payer MEDICARE, MEDICAID ==
[2018-03-01 19:00] VITALS: BMI 26.6
[2018-03-01] MEDS: Albuterol-Ipratrop 3 mg / 0.5 (3 ml) UD IH SCH ×3 (19:24→19:45)
[2018-03-01] MEDS ORDERED: Albuterol-Ipratrop 3 mg / 0.5 (3 ml) UD ONE (19:25)
--- NOTE | 2018-03-01 19:30 | ED PDOC ---
Arrival/HPI - General Chief Complaint: Cough, Cold, Congestion Time Seen by Provider: 03/01/18 19:06 Historian: Patient - History of Present Illness Narrative History of Present Illness (Text): 03/01/18 19:31 A 63 year old male, whose past medical history includes substance abuse and COPD, presents to the emergency department complaining of dry cough and shortness of breath for months. Patient had left against medical advice [place] [facility] after getting IV Levaquin. Patient denies any fever, chest pain, or any other complaint at this time. Past Medical History - Provider Review Nursing Documentation Reviewed: Yes - Infectious Disease Hx of Infectious Diseases: None - Tetanus Immunization Tetanus Immunization: Unknown - Cardiac Hx Hypertension: Yes - Pulmonary Hx Asthma: Yes Hx Bronchitis: Yes Hx Chronic Obstructive Pulmonary Disease (COPD): Yes Hx Emphysema: Yes Hx Pneumonia: Yes Hx Sleep Apnea: Yes - Neurological Hx Seizures: No - HEENT Hx HEENT Disorder: No Hx Cataracts: Yes (had sx) - Renal Hx Renal Disorder: No - Endocrine/Metabolic Hx Diabetes Mellitus Type 1: Yes - Hematological/Oncological Hx Blood Disorders: Yes Hx Hepatitis C: Yes - Integumentary Hx Dermatological Disorder: No - Musculoskeletal/Rheumatological Hx Arthritis: Yes Hx Falls: Yes - Gastrointestinal Hx Pancreatitis: Yes - Genitourinary/Gynecological Hx Sexually Transmitted Diseases: No - Psychiatric Hx Anxiety: Yes Hx Substance Use: Yes - Surgical History Hx Orthopedic Surgery: Yes (RT KNEE) Other/Comment: comestic surgery to face post getting kicked in face by horse - Anesthesia Hx Anesthesia: Yes Hx Anesthesia Reactions: No Hx Malignant Hyperthermia: No - Suicidal Assessment Feels Threatened In Home Enviroment: No Family/Social History - Physician Review Nursing Documentation Reviewed: Yes Family/Social History: No Known Family HX Smoking Status: Former Smoker Hx Alcohol Use: Yes Hx Substance Use: Yes Substance used: h/o heroine use Allergies/Home Meds Allergies/Adverse Reactions: Allergies No Known Allergies Allergy (Verified 02/20/18 15:40) Review of Systems - Physician Review All systems were reviewed & negative as marked: Yes - Review of Systems Constitutional: absent: Fevers Respiratory: SOB, Cough (dry) Cardiovascular: absent: Chest Pain Physical Exam - Physical Exam Narrative Physical Exam (Text): Gen: VS reviewed, alert, well developed, well nourished, nontoxic, mild distress. ENT: normal pharynx. Eye: EOMI, PERRL. Neck: no JVD, supple, no adenopathy. CV: regular rate, regular rhythm, no rubs, no murmur, no gallops, S1, S2, pulses equal and strong. Pulm: no distress, clear to auscultation, no wheeze, no rhonchi, diminished breath sounds b/l, no rales, tachypneic Abd: soft, nontender, no guarding, no rebound, no rigidity, normal bowel sounds. Ext: trace b/l edema. Skin: good color, no rash, no cyanosis. Psych: responds appropriately to questions, normal affect. Neuro: oriented x 3, CN2-12 intact grossly, motor intact, sensation intact. Mental Status: Positive for: Alert and Oriented X 3 Medical Decision Making ED Course and Treatment: 03/01/18 19:27 Impression: 63 year old male with dry cough and shortness of breath. Plan: -- Chest X-Ray -- EKG -- Labs -- Duoneb -- SOLU-Medrol -- Reassess and disposition Progress Notes: 03/01/18 21:47 on re-eval, patient still appears very mildly dyspneic and repat lung exam still has coarse breath sounds but good air exchange bilaterally. will admit for continued neb tx, systemic corticosteroids, iv abx for copd exacerbation 03/01/18 22:[address] lovelace - RAD Interpretation Radiology Orders: 03/01/18 19:20 CHEST PORTABLE [RAD] Stat - EKG Interpretation EKG Interpretation (Text): 03/01/18 19:38 1931: msr at 85 bpm, nml qrs, nml axis, no acute sttw abn Interpreted by ED Physician: Yes - Medication Orders Current Medication Orders: Albuterol/Ipratropium (Duoneb 3 Mg/0.5 Mg (3 Ml) Ud) 3 ml IH Q15M AMAYA Stop: 03/01/18 20:01 Methylprednisolone (Solu-Medrol) 60 mg IVP STAT STA Stop: 03/01/18 19:21 - Scribe Statement The provider has reviewed the documentation as recorded by the Temo Sloan Provider Scribe Attestation: All medical record entries made by the Scribe were at my direction and personally dictated by me. I have reviewed the chart and agree that the record accurately reflects my personal performance of the history, physical exam, medical decision making, and the department course for this patient. I have also personally directed, reviewed, and agree with the discharge instructions and disposition. Disposition/Present on Arrival - Present on Arrival Any Indicators Present on Arrival: No History of DVT/PE: No History of Uncontrolled Diabetes: Yes Urinary Catheter: No History of Decub. Ulcer: No History Surgical Site Infection Following: None - Disposition Have Diagnosis and Disposition been Completed?: Yes Diagnosis: COPD exacerbation Disposition: HOSPITALIZED Disposition Time: 22:14 Patient Plan: Admission Patient Problems: Current Active Problems Problem Status Onset COPD exacerbation Acute Condition: STABLE Forms: [employer] (Croatian)
[2018-03-01 20:09] LABS: GRAN # 9.82 (1.4-6.5); GRAN % 92.3 % (50.0-68.0); HEMOGLOBIN 8.3 g/dL (14.0-18.0); LYMPH # 0.6 (1.2-3.4); LYMPH % 5.4 % (22.0-35.0); MEAN CELL VOLUME 78.5 fl (80.0-105.0); MEAN CORPUSCULAR HEMOGLOBIN 22.9 pg (25.0-35.0); MEAN CORPUSCULAR HGB CONC 29.2 g/dl (31.0-37.0); MEAN PLATELET VOLUME 9.5 fl (7.0-11.0); MONO # 0.3 (0.1-0.6); MONO % 2.3 % (1.0-6.0); PLATELET COUNT 424 10^3/uL (120.0-450.0); RBC 3.62 10^6/uL (3.5-6.1); RED CELL DISTRIBUTION WIDTH 15.5 % (11.5-14.5); WHITE BLOOD COUNT 10.7 10^3/uL (4.5-11.0)
[2018-03-01 20:36] LABS: B-TYPE NATRIURETIC PEPTIDE 207 pg/mL (0-450)
[2018-03-01 20:38] LABS: ALB/GLOB RATIO 1.1 (1.1-1.8); ALBUMIN 4.1 g/dL (3.0-4.8); ALT/SGPT 23 U/L (7-56); AST/SGOT 36 U/L (17-59); BLOOD UREA NITROGEN 37 mg/dL (7-21); CALCIUM 9.5 mg/dL (8.4-10.5); GFR NON-AFRICAN AMERICAN 56
[2018-03-01] MEDS ORDERED: Insulin Regular 1 UNITS/0.01 ML ML IVP STA (20:40)
[2018-03-01] MEDS ORDERED: cefTRIAXone 1 gm 1 GM/100 ML BAG IVPB STA (22:12)
[2018-03-01] MEDS ORDERED: Azithromycin 500MG/NS 250ml 500 MG/250 ML BAG IVPB STA (22:12)
[2018-03-01 22:40] LABS: BAND 1 % (0-2); EOSINOPHIL 1 % (0.0-3.0); HYPOCHROMIA 1+; LYMPHOCYTE 7 % (22.0-35.0); MONOCYTE 1 % (1.0-6.0); NEUTROPHIL 90 % (50.0-70.0); PLATELET ESTIMATE NORMAL (NORMAL)
[2018-03-01 22:42] LABS: MICROCYTOSIS 1+; OVALOCYTES SLIGHT; POIKILOCYTOSIS SLIGHT; SCHISTOCYTES SLIGHT
--- NOTE | 2018-03-02 00:47 | HP ---
DATE OF EXAM: 03/01/2018 HISTORY OF PRESENT ILLNESS: The patient is 63 years old black male, came to emergency room because of increasing cough, congestion and shortness of breath. The patient is not a very good historian. Information obtained from previous admissions. The patient had multiple hospitalizations in different hospitals. He seems to be noncompliant with his medications and followups. Patient was recently discharged from [facility] on 02/15/2018 and the patient was admitted to [facility] from 02/20/2018 with similar complaints of cough, congestion, and shortness of breath. The patient stated he has been having cough for the last couple of weeks. PAST MEDICAL HISTORY: Significant for: 1. COPD. 2. HIV. 3. History of obstructive sleep apnea. 4. Spr-vblibpg-eqxgmvsdu diabetes. 5. Anxiety disorder. 6. History of recurrent pancreatitis. 7. Generalized osteoarthritis. 8. Chronic back pain. PAST SURGICAL HISTORY: Significant for right knee surgery and some facial plastic surgery in the past. ALLERGIES: NOT ALLERGIC TO ANY MEDICATIONS. MEDICATIONS AT HOME: He is on amlodipine 5 mg daily, spironolactone 25 daily, Singulair 10 mg daily, pancreatic enzyme, gabapentin, he is on 300 twice a day, Xanax 0.25 t.i.d. p.r.n., valsartan mg daily, Lasix 20 mg daily, Pepcid, and nebulizer treatment. SOCIAL HISTORY: He was a heavy smoker, history of substance abuse and alcohol abuse. PHYSICAL EXAMINATION: GENERAL: He is awake, alert, and oriented. VITAL SIGNS: He is afebrile, pulse 88, respirations 12, and blood pressure 110/69. LUNGS: Bilateral expiratory rhonchi. HEART: S1 and S2 audible. ABDOMEN: Soft and nontender. No rebound. No guarding. NEUROLOGIC: He is awake, alert, oriented, and communicative. LABORATORY DATA: WBC 10.7, hemoglobin 8.3, hematocrit 28.4, and platelets 424,000. Chemistry; sodium 139, potassium 4.8, chloride 100, CO2 of 29, BUN 37, and creatinine 1.3. Blood sugar 337. DIAGNOSTIC DATA: X-ray of chest is unremarkable. ASSESSMENT: 1. Chronic obstructive pulmonary disease exacerbation. 2. Human immunodeficiency virus positive. 3. Asthmatic bronchitis. 4. Hypertension. 5. Qwi-roesisp-aywkvnxce diabetes. 6. Noncompliance. 7. History of smoking. PLAN: The patient will be admitted . We will start IV steroids, antibiotics. Blood cultures and urine cultures were sent. I will request ID evaluation. Follow up in a.m. Antonio Patel MD
[2018-03-02] MEDS: Albuterol-Ipratrop 3 mg / 0.5 (3 ml) UD IH SCH ×4 (01:15→19:37)
[2018-03-02] MEDS: Pantoprazole 40 mg EC Tab PO SCH (05:29)
[2018-03-02] MEDS: Albuterol-Ipratrop 3 mg / 0.5 (3 ml) UD IH PRN ×3 (05:38→23:53)
[2018-03-02 06:50] LABS: GRAN # 6.91 (1.4-6.5); GRAN % 87.8 % (50.0-68.0); HEMOGLOBIN 7.1 g/dL (14.0-18.0); LYMPH # 0.8 (1.2-3.4); LYMPH % 9.5 % (22.0-35.0); MEAN CELL VOLUME 77.9 fl (80.0-105.0); MEAN CORPUSCULAR HEMOGLOBIN 22.4 pg (25.0-35.0); MEAN CORPUSCULAR HGB CONC 28.7 g/dl (31.0-37.0); MEAN PLATELET VOLUME 9.4 fl (7.0-11.0); MONO # 0.2 (0.1-0.6); MONO % 2.7 % (1.0-6.0); RBC 3.17 10^6/uL (3.5-6.1); RED CELL DISTRIBUTION WIDTH 15.5 % (11.5-14.5); WHITE BLOOD COUNT 7.9 10^3/uL (4.5-11.0)
--- NOTE | 2018-03-02 07:04 | CP.PCM.CON ---
<Starr Mccord - Last Filed: 03/02/18 10:59> History of Present Illness - History of Present Illness History of Present Illness: Infectious Disease Consult Note for Rogelio Black PGY3 This is a 63yo male with past medical history of HIV (on HAART), Hep C, DM II, COPD, pancreatitis, HTN who came to ED for shortness of breath and cough. Patient reports he was at [facility] and left AMA after he was given IV Levaquin. He also was seen at [facility] on 02/20 for similar symptoms. Patient states he has a cough with clear mucus and continue to feel short of breath. He denies chest pain, nausea/vomiting/diarrhea, fever/chills, numbness/tingling, dysuria or hematuria. Patient has been taking his HIV medications regularly. He follows up with Dr. Holman infectious disease, but has not seen him in 8 months. Last CD4 count in 01/2018 is about 400. Past medical history: HIV (on HAART), Hep C, DM II, COPD, pancreatitis, HTN Past surgical history: R cataract surgery Home meds: Reviewed Allergies: NKDA Social history: Former tobacco abuse. Former Etoh abuse (quit many yrs ago) and former drug use. Family history: Non-contributory Review of Systems - Review of Systems All systems: reviewed and no additional remarkable complaints except Review of Systems: 12 point ROS reviewed as per HPI and is otherwise negative Past Patient History - Infectious Disease Hx of Infectious Diseases: None - Tetanus Immunizations Tetanus Immunization: Unknown - Past Medical History & Family History Past Medical History?: Yes - Past Social History Smoking Status: Former Smoker - CARDIAC Hx Cardiac Disorders: Yes Hx Hypercholesterolemia: No (denies) Hx Hypertension: Yes - PULMONARY Hx Respiratory Disorders: Yes Hx Asthma: No (denies) Hx Bronchitis: Yes Hx Chronic Obstructive Pulmonary Disease (COPD): Yes Hx Emphysema: Yes Hx Pneumonia: Yes Hx Respiratory Tract Infection: Yes Hx Sleep Apnea: Yes (occasional uses bipap) - NEUROLOGICAL Hx Neurological Disorder: No Hx Seizures: No - HEENT Hx HEENT Problems: Yes Hx Cataracts: Yes (right eye sx) - RENAL Hx Chronic Kidney Disease: No - ENDOCRINE/METABOLIC Hx Endocrine Disorders: Yes Hx Diabetes Mellitus Type 1: Yes - HEMATOLOGICAL/ONCOLOGICAL Hx Blood Disorders: Yes Hx Anemia: Yes (blood transfusion) Hx Hepatitis C: Yes Hx Human Immunodeficiency Virus (HIV): Yes - INTEGUMENTARY Hx Dermatological Problems: No - MUSCULOSKELETAL/RHEUMATOLOGICAL Hx Falls: Yes - GASTROINTESTINAL Hx Gastrointestinal Disorders: Yes Hx Gastroesophageal Reflux: No Hx Pancreatitis: Yes - GENITOURINARY/GYNECOLOGICAL Hx Genitourinary Disorders: Yes Hx Sexually Transmitted Disorders: No Hx Urinary Tract Infection: Yes - PSYCHIATRIC Hx Psychophysiologic Disorder: Yes Hx Anxiety: Yes - SURGICAL HISTORY Hx Surgeries: Yes (facial surgery with plate, jaw surgery) Hx Orthopedic Surgery: No Other/Comment: comestic surgery to face post getting kicked in face by horse - ANESTHESIA Hx Anesthesia: Yes Hx Anesthesia Reactions: No Hx Malignant Hyperthermia: No Meds Allergies/Adverse Reactions: Allergies Allergy/AdvReac Type Severity Reaction Status Date / Time No Known Allergies Allergy Verified 02/20/18 15:40 - Medications Medications: Current Medications Abacavir Sulfate (Ziagen) 300 mg PO BID [facility]; Protocol Albuterol/Ipratropium (Duoneb 3 Mg/0.5 Mg (3 Ml) Ud) 3 ml IH Q2H PRN PRN Reason: Shortness of Breath Last Admin: 03/02/18 05:38 Dose: 3 ml Albuterol/Ipratropium (Duoneb 3 Mg/0.5 Mg (3 Ml) Ud) 3 ml IH [id number] AMAYA Last Admin: 03/02/18 01:15 Dose: 3 ml Alprazolam (Xanax) 0.25 mg PO TID PRN; Protocol PRN Reason: Anxiety Stop: 03/08/18 22:13 Last Admin: 03/02/18 00:21 Dose: 0.25 mg Amlodipine Besylate (Norvasc) 5 mg PO DAILY [facility] Gabapentin (Neurontin) 300 mg PO TID [facility]; Protocol Glimepiride (Amaryl) 2 mg PO ACBD [facility] Ceftriaxone Sodium (Rocephin 1 Gram Ivpb) 1 gm in 100 mls @ 100 mls/hr IVPB DAILY [facility]; Protocol Azithromycin (Zithromax 500mg In Ns) 500 mg in 250 mls @ 167 mls/hr IVPB DAILY [facility]; Protocol Insulin Human Lispro (Humalog High) 0 units SC ACHS [facility]; Protocol Metformin HCl (Glucophage) 500 mg PO BID [facility] Methylprednisolone (Solu-Medrol) 40 mg IV Q12 [facility] Montelukast Sodium (Singulair) 10 mg PO HS [facility] Last Admin: 03/01/18 22:31 Dose: 10 mg Non-Formulary Medication (Lipase/Protease/Amylase [Creon Dr 12,000 Units Capsule]) 1 each PO TID [facility] Non-Formulary Medication (Raltegravir Potassium [Isentress Hd]) 600 mg PO BID [facility] Pantoprazole Sodium (Protonix Ec Tab) 40 mg PO 0630 [facility] Last Admin: 03/02/18 05:29 Dose: 40 mg Spironolactone (Aldactone) 25 mg PO DAILY [facility] Physical Exam - Constitutional Appears: No Acute Distress, Chronically Ill - Head Exam Head Exam: ATRAUMATIC, NORMAL INSPECTION, NORMOCEPHALIC - Eye Exam Eye Exam: Normal appearance, PERRL Pupil Exam: NORMAL ACCOMODATION, PERRL - ENT Exam ENT Exam: Mucous Membranes Moist - Respiratory Exam Respiratory Exam: Decreased Breath Sounds, Rhonchi (bibasilar ), NORMAL BREATHING PATTERN. absent: Rales, Wheezes, Respiratory Distress - Cardiovascular Exam Cardiovascular Exam: REGULAR RHYTHM, +S1, +S2. absent: Gallop, Rubs, Systolic Murmur - GI/Abdominal Exam GI & Abdominal Exam: Normal Bowel Sounds, Soft. absent: Guarding, Hernia, Rebound, Rigid, Tenderness - Extremities Exam Extremities exam: Positive for: normal inspection. Negative for: calf tenderness, pedal edema - Neurological Exam Neurological exam: Alert, CN II-XII Intact, Oriented x3 - Psychiatric Exam Psychiatric exam: Normal Affect, Normal Mood - Skin Skin Exam: Dry, Warm Results - Vital Signs Recent Vital Signs: Last Vital Signs Temp 97.7 F 03/02/18 06:00 Pulse 84 03/02/18 06:00 Resp 20 03/02/18 06:00 BP 107/70 03/02/18 06:00 Pulse Ox 100 03/02/18 06:00 - Labs Result Diagrams: 03/02/18 06:00 03/02/18 06:00 Labs: Laboratory Results - last 24 hr 03/01/18 03/01/18 03/01/18 19:57 19:57 21:54 WBC 10.7 RBC 3.62 Hgb 8.3 L Hct 28.4 L MCV 78.5 L MCH 22.9 L MCHC 29.2 L RDW 15.5 H Plt Count 424 MPV 9.5 Gran % 92.3 H Lymph % (Auto) 5.4 L Mcduffie % (Auto) 2.3 Eos % (Auto) 0.0 L Baso % (Auto) 0.0 Gran # 9.82 H Lymph # (Auto) 0.6 L Mcduffie # (Auto) 0.3 Eos # (Auto) 0.0 Baso # (Auto) 0.00 Neutrophils % (Manual) 90 H Band Neutrophils % 1 Lymphocytes % (Manual) 7 L Monocytes % (Manual) 1 Eosinophils % (Manual) 1 Platelet Evaluation Normal Hypochromasia 1+ Poikilocytosis (manual Slight Microcytosis (manual) 1+ Ovalocytes Slight Schistocytes Slight Sodium 139 Potassium 4.8 Chloride 100 Carbon Dioxide 28 Anion Gap 16 BUN 37 H Creatinine 1.3 Est GFR ( Amer) > 60 Est GFR (Non-Af Amer) 56 POC Glucose (mg/dL) 161 H Random Glucose 337 H* D Calcium 9.5 Total Bilirubin 0.3 AST 36 ALT 23 Alkaline Phosphatase 99 NT-Pro-B Natriuret Pep 207 Total Protein 7.9 Albumin 4.1 Globulin 3.8 Albumin/Globulin Ratio 1.1 03/02/18 06:00 WBC 7.9 D RBC 3.17 L Hgb 7.1 L Hct 24.7 L MCV 77.9 L MCH 22.4 L MCHC 28.7 L RDW 15.5 H Plt Count 358 MPV 9.4 Gran % 87.8 H Lymph % (Auto) 9.5 L Mcduffie % (Auto) 2.7 Eos % (Auto) 0.0 L Baso % (Auto) 0.0 Gran # 6.91 H Lymph # (Auto) 0.8 L Mcduffie # (Auto) 0.2 Eos # (Auto) 0.0 Baso # (Auto) 0.00 Neutrophils % (Manual) Band Neutrophils % Lymphocytes % (Manual) Monocytes % (Manual) Eosinophils % (Manual) Platelet Evaluation Hypochromasia Poikilocytosis (manual Microcytosis (manual) Ovalocytes Schistocytes Sodium Potassium Chloride Carbon Dioxide Anion Gap BUN Creatinine Est GFR ( Amer) Est GFR (Non-Af Amer) POC Glucose (mg/dL) Random Glucose Calcium Total Bilirubin AST ALT Alkaline Phosphatase NT-Pro-B Natriuret Pep Total Protein Albumin Globulin Albumin/Globulin Ratio Assessment & Plan - Assessment and Plan (Free Text) Assessment: 1. COPD exacerbation 2. RUL mass 3. HIV 4. Hep C 5. DM II 6. COPD 7. HTN 8. Hx of pancreatitis 9. Former polysubstance abuser Plan: Labs and imaging reviewed. CT chest shows enlarging RUL mass. Will consult Pulm to see if mass will need biopsy. No evidence of pneumonia at this time. Will continue HIV medications (abacavir, Lamivudine, and Raltegravir). Will give short course of Levaquin PO for 3-5 days for COPD exacerbation. Case seen, discussed and reviewed with Dr. Rossana Mccord PGY3 - Date & Time Date: 03/02/18 Time: 11:01 <Wilfredo Tracy - Last Filed: 03/02/18 19:44> Meds - Medications Medications: Current Medications Abacavir Sulfate (Ziagen) 300 mg PO BID [facility]; Protocol Last Admin: 03/02/18 17:40 Dose: 300 mg Albuterol/Ipratropium (Duoneb 3 Mg/0.5 Mg (3 Ml) Ud) 3 ml IH Q2H PRN PRN Reason: Shortness of Breath Last Admin: 03/02/18 11:42 Dose: 3 ml Albuterol/Ipratropium (Duoneb 3 Mg/0.5 Mg (3 Ml) Ud) 3 ml IH [id number] [facility] Last Admin: 03/02/18 19:37 Dose: 3 ml Alprazolam (Xanax) 0.25 mg PO TID PRN; Protocol PRN Reason: Anxiety Stop: 03/08/18 22:13 Last Admin: 03/02/18 15:34 Dose: 0.25 mg Amlodipine Besylate (Norvasc) 5 mg PO DAILY [facility] Last Admin: 03/02/18 09:39 Dose: Not Given Gabapentin (Neurontin) 300 mg PO TID [facility]; Protocol Last Admin: 03/02/18 17:45 Dose: 300 mg Glimepiride (Amaryl) 2 mg PO ACBD [facility] Last Admin: 03/02/18 17:40 Dose: 2 mg Insulin Human Lispro (Humalog High) 0 units SC ACHS [facility]; Protocol Last Admin: 03/02/18 17:40 Dose: 4 unit Lamivudine (Epivir) 150 mg PO BID [facility]; Protocol Last Admin: 03/02/18 17:46 Dose: 150 mg Levofloxacin (Levaquin) 500 mg PO DAILY [facility]; Protocol Stop: 03/06/18 10:01 Last Admin: 03/02/18 12:10 Dose: 500 mg Metformin HCl (Glucophage) 500 mg PO BID [facility] Last Admin: 03/02/18 17:40 Dose: 500 mg Methylprednisolone (Solu-Medrol) 40 mg IV Q12 [facility] Last Admin: 03/02/18 09:37 Dose: 40 mg Montelukast Sodium (Singulair) 10 mg PO HS [facility] Last Admin: 03/01/18 22:31 Dose: 10 mg Non-Formulary Medication (Lipase/Protease/Amylase [Creon Dr 12,000 Units Capsule]) 1 each PO TID [facility] Last Admin: 03/02/18 17:42 Dose: Not Given Non-Formulary Medication (Raltegravir Potassium [Isentress Hd]) 600 mg PO BID [facility] Last Admin: 03/02/18 17:46 Dose: Not Given Pantoprazole Sodium (Protonix Ec Tab) 40 mg PO 0630 [facility] Last Admin: 03/02/18 05:29 Dose: 40 mg Spironolactone (Aldactone) 25 mg PO DAILY [facility] Last Admin: 03/02/18 09:38 Dose: 25 mg Results - Vital Signs Recent Vital Signs: Last Vital Signs Temp 98.8 F 03/02/18 18:08 Pulse 82 03/02/18 18:08 Resp 18 03/02/18 18:08 BP 102/62 03/02/18 18:08 Pulse Ox 100 03/02/18 17:52 - Labs Result Diagrams: 03/02/18 06:00 03/02/18 06:00 Labs: Laboratory Results - last 24 hr 03/01/18 03/01/18 03/01/18 19:57 19:57 21:54 WBC 10.7 RBC 3.62 Hgb 8.3 L Hct 28.4 L MCV 78.5 L MCH 22.9 L MCHC 29.2 L RDW 15.5 H Plt Count 424 MPV 9.5 Gran % 92.3 H Lymph % (Auto) 5.4 L Mcduffie % (Auto) 2.3 Eos % (Auto) 0.0 L Baso % (Auto) 0.0 Gran # 9.82 H Lymph # (Auto) 0.6 L Mcduffie # (Auto) 0.3 Eos # (Auto) 0.0 Baso # (Auto) 0.00 Neutrophils % (Manual) 90 H Band Neutrophils % 1 Lymphocytes % (Manual) 7 L Monocytes % (Manual) 1 Eosinophils % (Manual) 1 Platelet Evaluation Normal Hypochromasia 1+ Poikilocytosis (manual Slight Microcytosis (manual) 1+ Ovalocytes Slight Schistocytes Slight Sodium 139 Potassium 4.8 Chloride 100 Carbon Dioxide 28 Anion Gap 16 BUN 37 H Creatinine 1.3 Est GFR ( Amer) > 60 Est GFR (Non-Af Amer) 56 POC Glucose (mg/dL) 161 H Random Glucose 337 H* D Calcium 9.5 Total Bilirubin 0.3 AST 36 ALT 23 Alkaline Phosphatase 99 NT-Pro-B Natriuret Pep 207 Total Protein 7.9 Albumin 4.1 Globulin 3.8 Albumin/Globulin Ratio 1.1 Blood Type Antibody Screen Crossmatch BBK History Checked 03/02/18 03/02/18 03/02/18 06:00 06:00 07:21 WBC 7.9 D RBC 3.17 L Hgb 7.1 L Hct 24.7 L MCV 77.9 L MCH 22.4 L MCHC 28.7 L RDW 15.5 H Plt Count 358 MPV 9.4 Gran % 87.8 H Lymph % (Auto) 9.5 L Mcduffie % (Auto) 2.7 Eos % (Auto) 0.0 L Baso % (Auto) 0.0 Gran # 6.91 H Lymph # (Auto) 0.8 L Mcduffie # (Auto) 0.2 Eos # (Auto) 0.0 Baso # (Auto) 0.00 Neutrophils % (Manual) Band Neutrophils % Lymphocytes % (Manual) Monocytes % (Manual) Eosinophils % (Manual) Platelet Evaluation Hypochromasia Poikilocytosis (manual Microcytosis (manual) Ovalocytes Schistocytes Sodium 136 Potassium 4.5 Chloride 103 Carbon Dioxide 27 Anion Gap 10 BUN 33 H Creatinine 1.2 Est GFR ( Amer) > 60 Est GFR (Non-Af Amer) > 60 POC Glucose (mg/dL) 243 H Random Glucose 310 H* Calcium 9.1 Total Bilirubin 0.2 AST 28 ALT 21 Alkaline Phosphatase 87 NT-Pro-B Natriuret Pep Total Protein 6.6 Albumin 3.3 Globulin 3.2 Albumin/Globulin Ratio 1.0 L Blood Type Antibody Screen Crossmatch BBK History Checked 03/02/18 03/02/18 03/02/18 11:20 11:29 16:46 WBC RBC Hgb Hct MCV MCH MCHC RDW Plt Count MPV Gran % Lymph % (Auto) Mcduffie % (Auto) Eos % (Auto) Baso % (Auto) Gran # Lymph # (Auto) Mcduffie # (Auto) Eos # (Auto) Baso # (Auto) Neutrophils % (Manual) Band Neutrophils % Lymphocytes % (Manual) Monocytes % (Manual) Eosinophils % (Manual) Platelet Evaluation Hypochromasia Poikilocytosis (manual Microcytosis (manual) Ovalocytes Schistocytes Sodium Potassium Chloride Carbon Dioxide Anion Gap BUN Creatinine Est GFR ( Amer) Est GFR (Non-Af Amer) POC Glucose (mg/dL) 223 H 240 H Random Glucose Calcium Total Bilirubin AST ALT Alkaline Phosphatase NT-Pro-B Natriuret Pep Total Protein Albumin Globulin Albumin/Globulin Ratio Blood Type A POSITIVE Antibody Screen Negative Crossmatch See Detail BBK History Checked Patient has bt Assessment & Plan - Assessment and Plan (Free Text) Plan: Infectious Diseases Attending Physician Attestation Patient seen and examined, discussed with medical librarian. I have reviewed the patient's history of present illness, past medical, family and social histories, personal history, physical exam, lab findings and imaging studies. I agree with the above findings, assessment and plan. In addition, continue cART for chronic HIV infection. Complete 3-5 days of Levaquin for acute exacerbation of COPD. Recommend biopsy of right upper lobe lung mass.
[2018-03-02] MEDS ORDERED: Insulin Reg-MEDIUM-Coverage SC SCH (07:30)
--- NOTE | 2018-03-02 07:58 | RAD ---
Date of service: 03/01/2018 HISTORY: chest pain COMPARISON: 02/13/2018 FINDINGS: LUNGS: No active pulmonary disease. PLEURA: No significant pleural effusion identified, no pneumothorax apparent. CARDIOVASCULAR: No aortic atherosclerotic calcification present. Normal cardiac size. No pulmonary vascular congestion. OSSEOUS STRUCTURES: No significant abnormalities. VISUALIZED UPPER ABDOMEN: Normal. OTHER FINDINGS: None. IMPRESSION: No active disease.
--- NOTE | 2018-03-02 08:09 | CT ---
Date of service: 03/01/2018 PROCEDURE: CT Chest without contrast HISTORY: sob COMPARISON: Chest radiograph 03/01/2018. No prior chest CT available for comparison. TECHNIQUE: Contiguous axial images were obtained through the chest without intravenous contrast enhancement. Sagittal and coronal reconstructions were performed. Radiation dose: Total exam DLP = 335.0 mGy-cm. This CT exam was performed using one or more of the following dose reduction techniques: Automated exposure control, adjustment of the mA and/or kV according to patient size, and/or use of iterative reconstruction technique. FINDINGS: LUNGS: No alveolitis is appreciated bilaterally however mild bilateral lower lobe bronchiectasis is appreciated somewhat more so at the left and right lower lobes. Limited linear atelectasis or fibrosis in the bilateral lower lobes mildly, as well. Central airways appear clear. There is a 2.1 x 1.1 cm the mass at the right upper lobe with irregular peripheral margins, seen best in image 50 series 3. No definite additional pulmonary mass appreciable bilaterally. MEDIASTINUM: The solitary enlarged lymph node at the inferior right paratracheal mediastinum measuring 2.8 x 1.5 cm. Otherwise tiny prevascular, aortopulmonary window and paratracheal shotty lymph nodes are identified. Unremarkable thoracic aorta. No aneurysm. Normal sized heart. Main pulmonary artery unremarkable. No vascular congestion. Limited thoracic aortic atherosclerotic calcification. PLEURA: No pleural fluid. No pneumothorax. BONES: No fracture. No destructive lesion. UPPER ABDOMEN: Two punctate calcifications are granulomata are seen at the right lobe liver inferiorly with dense calcifications identified at the pancreatic head or within peripancreatic lymph nodes near the pancreatic head. OTHER FINDINGS: Incidental limited left gynecomastia. IMPRESSION: 1. 2.1 x 1.1 cm mass right upper lobe with irregular peripheral margins. Mild mediastinal lymphadenopathy is appreciate including solitary 2.8 cm lymph node right paratracheal space. Tissue diagnosis is recommended under CT control. 2. Limited linear atelectasis or fibrosis bilateral lower lobes with mild bronchiectasis left greater than right lower lobes. No alveolitis, pleural or pericardial effusion. 3. Dense pancreatic head calcifications (chronic pancreatitis) or peripancreatic calcified lymph nodes. A couple of punctate hepatic granulomata identified. 4. Incidental limited left gynecomastia. Preliminary report provided by [employer], 03/02/2018.
[2018-03-02] MEDS: Insulin Lispro (HUMAlog) HIGH Coverage SC SCH ×4 (08:27→22:04)
[2018-03-02 08:51] LABS: ALBUMIN 3.3 g/dL (3.0-4.8); ALT/SGPT 21 U/L (7-56); AST/SGOT 28 U/L (17-59); BLOOD UREA NITROGEN 33 mg/dL (7-21); CALCIUM 9.1 mg/dL (8.4-10.5); GFR NON-AFRICAN AMERICAN > 60
[2018-03-02] MEDS: MethylPREDNISolone 40 mg Vial IV SCH ×2 (09:37→21:29)
[2018-03-02] MEDS ORDERED: cefTRIAXone 1 gm 1 GM/100 ML BAG IVPB SCH (10:00)
[2018-03-02] MEDS ORDERED: Azithromycin 500MG/NS 250ml 500 MG/250 ML BAG IVPB SCH (10:00)
--- NOTE | 2018-03-02 11:34 | CARD ---
APPROVED REPORT Date of service: 03/01/2018 EKG Measurement Heart [id number] <Conclusion> Normal sinus rhythm Possible Left atrial enlargement Borderline ECG
[2018-03-02] MEDS: levoFLOXacin 500 MG TAB PO SCH (12:10)
[2018-03-02] MEDS: [UNRECOGNIZED DRUG - OTHER] PO SCH ×3 (12:11→17:42)
[2018-03-02] MEDS: LIPASE PO SCH ×3 (12:11→17:42)
[2018-03-02] MEDS: PROTEASE PO SCH ×3 (12:11→17:42)
[2018-03-02] MEDS: RALTEGRAVIR POTASSIUM 600 MG PO SCH ×2 (12:11→17:46)
[2018-03-02] MEDS: AMYLASE PO SCH ×3 (12:11→17:42)
[2018-03-02] MEDS: Insulin Regular 1 UNITS/0.01 ML ML IV SCH (22:18)
--- NOTE | 2018-03-02 23:37 | CON ---
DATE: 03/02/2018 PULMONARY CONSULTATION REFERRING PHYSICIAN: Antonio Patel MD REASON FOR CONSULTATION: Chronic lung disease, lung nodule. HISTORY OF PRESENT ILLNESS: This is a 63-year-old gentleman known to me from previous admission, very noncompliant, does not follow up usually, signs out AMA, has a history of chronic lung disease, HIV positive, sleep apnea syndrome, diabetes, comes in to ER with cough and shortness of breath. No hemoptysis. No hematemesis. No hematuria. No diarrhea reported. Had a CT of the chest done, which shows mediastinal, tracheal and lung nodule. PAST MEDICAL HISTORY: As per history present illness. ALLERGIES: NONE KNOWN. SOCIAL HISTORY: Positive history of smoking. Also history of substance abuse and alcohol abuse. FAMILY HISTORY: No significant cardiopulmonary disease reported. MEDICATIONS: He is on Aldactone 25 mg daily, glimepiride 2 mg a.c. b.d., DuoNeb every 2 hours p.r.n. and every 6 hours [id number], Epivir 150 mg twice a day, metformin 500 mg twice a day, insulin 75/25, 15 units subcutaneously a.c. b.d., Levaquin 500 mg daily, getting supplement amylase-lipase protease three times a day, gabapentin 300 mg three times a day, Norvasc 5 mg daily, Protonix 40 mg daily, also getting Isentress 600 mg twice a day, Singulair 10 mg daily, Solu-Medrol 40 mg twice a day, Xanax 0.25 mg three times a day, Ziagen 300 mg twice a day, and received Rocephin in ER. REVIEW OF SYSTEMS: No headache. No rhinitis. Has cough, shortness of breath, and sputum production. No chest pain. No nausea. No vomiting, diarrhea, leg pain, or leg swelling. PHYSICAL EXAMINATION: GENERAL: In no acute distress. VITAL SIGNS: Temperature is 98, heart rate is 82, respiratory rate is 18, blood pressure 102/62, and pulse ox is 100% on 2 L nasal cannula. HEENT: Moist mucous membrane. Crowded airway. NECK: Supple. No JVD. LUNGS: Has a bilateral expiratory wheezing, scattered rhonchi. HEART: S1 and S2. ABDOMEN: Soft and nontender. No organomegaly. EXTREMITIES: There is no edema. NEUROLOGIC: Awake, alert and follows simple commands. LABORATORY DATA: Shows hemoglobin 7.1, hematocrit 24.7, WBC 7.9, and platelet count is 358. Sodium 136, potassium 4.5, chloride 103, bicarbonate 27, BUN 33, creatinine 1.2, glucose 240, calcium 9.1, AST 28, ALT 21, and alk phos is 87. Albumin is 3.3. Has a CAT scan of the chest done in the emergency room, which shows 2.1 x 1 x 1 cm mass in the right upper lobe with an irregular peripheral margins, mild mediastinal lymphadenopathy is appreciated including solitary 2.8 cm lymph node, right paratracheal space and also has some fibrosis, interstitial disease, there is bronchiectasis. There is a dense pancreatic head calcification suggestive of chronic pancreatitis. IMPRESSION AND PLAN: Chronic obstructive lung disease, history of substance abuse, human immunodeficiency virus positive, diabetes, hypertension, history of chronic pancreatitis, multiple joint pains, now has a right lung nodule with mediastinal and tracheal adenopathy. I spoke to the patient in detail. Informed him about lung finding, need a biopsy ideally. The patient can have EBUS where we can do tracheal as well as mediastinal biopsy where we can diagnosed stage of the tumor because of EBUS is not available, I think next best test is to CT-guided biopsy. Patient agree to go through. Dr. Fabian Infante consults been already called. We will continue steroids, antibiotics, inhaled bronchodilator. The patient urged to stop smoking. Thank you and we will follow with you. Ventura Browning MD
[2018-03-03] MEDS: Albuterol-Ipratrop 3 mg / 0.5 (3 ml) UD IH SCH ×4 (03:05→19:41)
[2018-03-03] MEDS: Acetylcysteine 20% Inhal Soln (4ml) IH SCH ×5 (03:07→19:39)
[2018-03-03] MEDS: Pantoprazole 40 mg EC Tab PO SCH (05:58)
[2018-03-03 06:28] LABS: HEMOGLOBIN 8.7 g/dL (14.0-18.0); MEAN CELL VOLUME 79.2 fl (80.0-105.0); MEAN CORPUSCULAR HEMOGLOBIN 23.8 pg (25.0-35.0); MEAN CORPUSCULAR HGB CONC 30.1 g/dl (31.0-37.0); MEAN PLATELET VOLUME 9.6 fl (7.0-11.0); RBC 3.65 10^6/uL (3.5-6.1); RED CELL DISTRIBUTION WIDTH 15.5 % (11.5-14.5); WHITE BLOOD COUNT 7.8 10^3/uL (4.5-11.0)
--- NOTE | 2018-03-03 07:00 | CP.PCM.PN ---
<Starr Mccord - Last Filed: 03/03/18 10:27> Subjective - Date & Time of Evaluation Date of Evaluation: 03/03/18 Time of Evaluation: 07:00 - Subjective Subjective: Infectious Disease Progress Note for Rogelio Black PGY3 Patient seen and examined at bedside. Patient is resting comfortably in bed. He reports having a cough with clear sputum. He is agitated this AM, but remains afebrile. Objective - Vital Signs/Intake and Output Vital Signs (last 24 hours): Temp Pulse Resp BP Pulse Ox 98.8 F 82 18 102/62 100 03/02/18 18:08 03/02/18 18:08 03/02/18 18:08 03/02/18 18:08 03/02/18 17:52 Intake and Output: 03/02/18 03/03/18 18:59 06:59 Intake Total 320 240 Output Total 775 Balance 320 -535 - Medications Medications: Current Medications Abacavir Sulfate (Ziagen) 300 mg PO BID [facility]; Protocol Last Admin: 03/02/18 17:40 Dose: 300 mg Acetylcysteine (Acetylcysteine 20%) 4 ml IH [id number] [facility] Last Admin: 03/03/18 03:07 Dose: Not Given Albuterol/Ipratropium (Duoneb 3 Mg/0.5 Mg (3 Ml) Ud) 3 ml IH Q2H PRN PRN Reason: Shortness of Breath Last Admin: 03/02/18 23:53 Dose: 3 ml Albuterol/Ipratropium (Duoneb 3 Mg/0.5 Mg (3 Ml) Ud) 3 ml IH [id number] [facility] Last Admin: 03/03/18 03:05 Dose: Not Given Alprazolam (Xanax) 0.25 mg PO TID PRN; Protocol PRN Reason: Anxiety Stop: 03/08/18 22:13 Last Admin: 03/03/18 01:03 Dose: 0.25 mg Amlodipine Besylate (Norvasc) 5 mg PO DAILY [facility] Last Admin: 03/02/18 09:39 Dose: Not Given Gabapentin (Neurontin) 300 mg PO TID [facility]; Protocol Last Admin: 03/02/18 17:45 Dose: 300 mg Glimepiride (Amaryl) 2 mg PO ACBD [facility] Last Admin: 03/02/18 17:40 Dose: 2 mg Insulin Human Lispro (Humalog High) 0 units SC ACHS [facility]; Protocol Last Admin: 03/02/18 22:04 Dose: Not Given Insulin Human Regular (Humulin R) 5 units IV Q12 [facility] Last Admin: 03/02/18 22:18 Dose: 5 units Insulin Lispro Protam/Lispro Human (Humalog Mix 75/25) 15 units SC ACBD [facility] Lamivudine (Epivir) 150 mg PO BID [facility]; Protocol Last Admin: 03/02/18 17:46 Dose: 150 mg Levofloxacin (Levaquin) 500 mg PO DAILY [facility]; Protocol Stop: 03/06/18 10:01 Last Admin: 03/02/18 12:10 Dose: 500 mg Metformin HCl (Glucophage) 500 mg PO BID [facility] Last Admin: 03/02/18 17:40 Dose: 500 mg Methylprednisolone (Solu-Medrol) 40 mg IV Q12 [facility] Last Admin: 03/02/18 21:29 Dose: 40 mg Montelukast Sodium (Singulair) 10 mg PO HS [facility] Last Admin: 03/02/18 21:29 Dose: 10 mg Non-Formulary Medication (Lipase/Protease/Amylase [Creon Dr 12,000 Units Capsule]) 1 each PO TID [facility] Last Admin: 03/02/18 17:42 Dose: Not Given Non-Formulary Medication (Raltegravir Potassium [Isentress Hd]) 600 mg PO BID [facility] Last Admin: 03/02/18 17:46 Dose: Not Given Pantoprazole Sodium (Protonix Ec Tab) 40 mg PO 0630 [facility] Last Admin: 03/03/18 05:58 Dose: 40 mg Spironolactone (Aldactone) 25 mg PO DAILY [facility] Last Admin: 03/02/18 09:38 Dose: 25 mg - Labs Labs: 03/03/18 06:00 03/02/18 06:00 - Constitutional Appears: No Acute Distress - Head Exam Head Exam: ATRAUMATIC, NORMAL INSPECTION, NORMOCEPHALIC - Eye Exam Eye Exam: Normal appearance, PERRL Pupil Exam: NORMAL ACCOMODATION, PERRL - ENT Exam ENT Exam: Mucous Membranes Moist - Respiratory Exam Respiratory Exam: Decreased Breath Sounds, NORMAL BREATHING PATTERN. absent: R ales, Rhonchi, Wheezes - Cardiovascular Exam Cardiovascular Exam: REGULAR RHYTHM, +S1, +S2. absent: Gallop, Rubs, Murmur - GI/Abdominal Exam GI & Abdominal Exam: Soft, Normal Bowel Sounds. absent: Rigid, Tenderness, Mass , Rebound - Extremities Exam Extremities Exam: Normal Inspection. absent: Calf Tenderness, Pedal Edema - Neurological Exam Neurological Exam: Alert, Awake, CN II-XII Intact, Oriented x3 - Psychiatric Exam Psychiatric exam: Agitated, Normal Mood - Skin Skin Exam: Dry, Warm Assessment and Plan - Assessment and Plan (Free Text) Assessment: 1. COPD exacerbation 2. RUL mass 3. HIV 4. Hep C 5. DM II 6. COPD 7. HTN 8. Hx of pancreatitis 9. Former polysubstance abuser Plan: Pulm and IR on case for lung mass. Patient will need biopsy. Continue Abicavir, Lamivudine, Raltegravir for HIV. Continue PO Levaquin for 2-4 more days for COPD exacerbation. Discussed case with Dr. Patel. Will continue to monitor clinically. Case seen, discussed and reviewed with Dr. Rossana Mccord PGY3 <Wilfredo Tracy - Last Filed: 03/03/18 17:16> Objective - Vital Signs/Intake and Output Vital Signs (last 24 hours): Temp Pulse Resp BP Pulse Ox 98.8 F 82 18 102/62 100 03/02/18 18:08 03/02/18 18:08 03/02/18 18:08 03/02/18 18:08 03/02/18 17:52 Intake and Output: 03/03/18 03/03/18 06:59 18:59 Intake Total 240 Output Total 775 Balance -535 - Medications Medications: Current Medications Abacavir Sulfate (Ziagen) 300 mg PO BID [facility]; Protocol Last Admin: 03/03/18 10:26 Dose: 300 mg Acetylcysteine (Acetylcysteine 20%) 4 ml IH [id number] [facility] Last Admin: 03/03/18 14:20 Dose: Not Given Albuterol/Ipratropium (Duoneb 3 Mg/0.5 Mg (3 Ml) Ud) 3 ml IH Q2H PRN PRN Reason: Shortness of Breath Last Admin: 03/02/18 23:53 Dose: 3 ml Albuterol/Ipratropium (Duoneb 3 Mg/0.5 Mg (3 Ml) Ud) 3 ml IH [id number] [facility] Last Admin: 03/03/18 14:16 Dose: 3 ml Alprazolam (Xanax) 0.25 mg PO TID PRN; Protocol PRN Reason: Anxiety Stop: 03/08/18 22:13 Last Admin: 03/03/18 10:44 Dose: 0.25 mg Amlodipine Besylate (Norvasc) 5 mg PO DAILY [facility] Last Admin: 03/03/18 10:25 Dose: 5 mg Gabapentin (Neurontin) 300 mg PO TID [facility]; Protocol Last Admin: 03/03/18 13:43 Dose: 300 mg Glimepiride (Amaryl) 2 mg PO ACBD [facility] Last Admin: 03/03/18 08:26 Dose: 2 mg Levofloxacin/Dextrose (Levaquin 500mg) 500 mg in 100 mls @ 100 mls/hr IVPB DAILY [facility]; Protocol Insulin Human Lispro (Humalog High) 0 units SC ACHS [facility]; Protocol Last Admin: 03/03/18 11:30 Dose: Not Given Insulin Human Regular (Humulin R) 5 units IV Q12 [facility] Last Admin: 03/03/18 10:23 Dose: 5 units Insulin Lispro Protam/Lispro Human (Humalog Mix 75/25) 15 units SC ACBD [facility] Last Admin: 03/03/18 10:22 Dose: 15 units Lamivudine (Epivir) 150 mg PO BID [facility]; Protocol Last Admin: 03/03/18 10:22 Dose: 150 mg Metformin HCl (Glucophage) 500 mg PO BID [facility] Last Admin: 03/03/18 10:22 Dose: 500 mg Methylprednisolone (Solu-Medrol) 40 mg IV Q12 [facility] Last Admin: 03/03/18 10:26 Dose: 40 mg Montelukast Sodium (Singulair) 10 mg PO HS [facility] Last Admin: 03/02/18 21:29 Dose: 10 mg Non-Formulary Medication (Lipase/Protease/Amylase [Creon Dr 12,000 Units Capsule]) 1 each PO TID [facility] Last Admin: 03/03/18 13:41 Dose: Not Given Non-Formulary Medication (Raltegravir Potassium [Isentress Hd]) 600 mg PO BID [facility] Last Admin: 03/03/18 10:26 Dose: Not Given Pantoprazole Sodium (Protonix Ec Tab) 40 mg PO 0630 [facility] Last Admin: 03/03/18 05:58 Dose: 40 mg Spironolactone (Aldactone) 25 mg PO DAILY [facility] Last Admin: 03/03/18 10:22 Dose: 25 mg - Labs Labs: 03/03/18 06:00 03/03/18 06:00 Assessment and Plan - Assessment and Plan (Free Text) Plan: Infectious Diseases Attending Physician Attestation Patient seen and examined, discussed with medical fee clerk. I have reviewed the patient's history of present illness, past medical, family and social histories, personal history, physical exam, lab findings and imaging studies. I agree with the above findings, assessment and plan. In addition, continue cART for chronic HIV infection. Complete 2-4 more days of Levaquin for acute exacerbation of [employer] D. Recommend biopsy of right upper lobe lung mass and Pulmonary is seeing the patient.
[2018-03-03 07:16] LABS: ALBUMIN 3.5 g/dL (3.0-4.8); ALT/SGPT 26 U/L (7-56); AST/SGOT 19 U/L (17-59); BLOOD UREA NITROGEN 26 mg/dL (7-21); CALCIUM 9.1 mg/dL (8.4-10.5); GFR NON-AFRICAN AMERICAN > 60
--- NOTE | 2018-03-03 08:20 | PN ---
DATE: 03/02/2018 SUBJECTIVE: The patient is a 63-year-old, seen and examined. Complains of feeling very anxious. Still has cough, congestion and wheezing. PHYSICAL EXAMINATION VITAL SIGNS: He is afebrile, pulse 82, respirations 18, and blood pressure 102/62. LUNGS: Bilateral fair airflow and have scattered diffuse soft crackle and rhonchi. HEART: S1 and S2 audible. ABDOMEN: Soft and nontender. No rebound. No guarding. NEUROLOGIC: The patient is awake, alert, oriented, and communicative. LABORATORY DATA: WBC 7.9, hemoglobin 7.1, hematocrit 24.7, and platelets 358. Chemistry; sodium 136, potassium 4.5, chloride 103, CO2 of 27, BUN 33, and creatinine 1.2. Blood sugar 240. IMAGING: CT scan of the chest was done also that shows 1.2 x 1.1 cm mass right upper lobe with irregular peripheral margins with mediastinal lymphadenopathy along with dense pancreatic head calcification and peripancreatic calcification. ASSESSMENT: 1. Chronic obstructive pulmonary disease exacerbation. 2. Right upper lung mass. 3. Human immunodeficiency virus positive. 4. Rxq-vnmgzvf-jiaytiufc diabetes. 5. Hypertension. PLAN: Currently, the patient is on HIV medications. He is on IV steroids. He is on Levaquin. We will get Dr. Fabian Infante involved to have possible biopsy done. The patient's hemoglobin is 7.1, he will get 2 blood transfusion. We will follow up CBC and CMP in a.m. Antonio Patel MD
[2018-03-03] MEDS: Insulin Lispro (HUMAlog) HIGH Coverage SC SCH ×4 (08:34→22:19)
[2018-03-03] MEDS: Insulin Lispro (humaLOG) MIX 75/25(10 ml) SC SCH ×2 (10:22→18:23)
[2018-03-03] MEDS: Insulin Regular 1 UNITS/0.01 ML ML IV SCH ×2 (10:23→22:20)
[2018-03-03] MEDS: [UNRECOGNIZED DRUG - OTHER] PO SCH ×3 (10:24→18:16)
[2018-03-03] MEDS: levoFLOXacin 500 MG TAB PO SCH (10:24)
[2018-03-03] MEDS: PROTEASE PO SCH ×3 (10:24→18:16)
[2018-03-03] MEDS: AMYLASE PO SCH ×3 (10:24→18:16)
[2018-03-03] MEDS: LIPASE PO SCH ×3 (10:24→18:16)
[2018-03-03] MEDS: RALTEGRAVIR POTASSIUM 600 MG PO SCH ×2 (10:26→18:16)
[2018-03-03] MEDS: MethylPREDNISolone 40 mg Vial IV SCH ×2 (10:26→21:54)
--- NOTE | 2018-03-03 12:47 | PN ---
DATE: 03/03/2018 I reviewed Mr. Gao's CT scan. There is an oblong 15-20 mm opacity with speculated margins in the right upper lobe posteriorly. The patient has an history of HIV infection. I explained to Mr. Gao that the differential includes scar, infection or malignancy. If he does not have a tissue diagnoses, he will need close interval followup. Mr. Gao refused the CT biopsy. Fabian Infante MD MTDD
--- NOTE | 2018-03-03 12:49 | PN ---
DATE: 03/03/2018 SUBJECTIVE: The patient is 63 years old, seen and examined, lying in bed. Still has cough, congestion. PHYSICAL EXAMINATION: VITAL SIGNS: The patient is afebrile, pulse 82, respirations 18, blood pressure 102/62. LUNGS: Bilateral rhonchi more pronounced posteriorly. HEART: S1, S2 audible. ABDOMEN: Soft, nontender. No rebound, no guarding. NEUROLOGICAL: He is awake, alert, oriented, communicative. LABORATORY EXAM: WBC is 7.8, hemoglobin 8.7, hematocrit 28.9, platelet of 321. Chemistry: Sodium 137, potassium 4.8, chloride 103, CO2 27, BUN 26, creatinine 1.1, blood sugar of 325. His blood cultures are negative. CT of the chest shows right upper lung mass, so Dr. Fabian Infante was consulted. The patient refused to go for biopsy. He understand the risks and benefits, but he decided not to have any interventions done. ASSESSMENT: 1. Chronic obstructive pulmonary disease exacerbation. 2. Human immunodeficiency virus positive. 3. Tcz-dhrgsyq-yzyaljpac diabetes. 4. Hypertension. 5. History of pancreatitis. 6. Right lung nodule with the adenopathy. The patient is refusing any intervention or biopsy done. He is upset that he was never told before 7. Generalized osteoarthritis. 8. Anxiety disorder. PLAN: Currently, the patient is on antibiotic. He is getting Mucomyst. Blood sugar is being monitored. He is on his HIV medications. We will continue current medications, encourage ambulation and I will request for physical therapy. If he has no hypoxia on exertion, we will make discharge plan on p.o. antibiotics and steroid. Antonio Patel MD
--- NOTE | 2018-03-03 15:34 | PN ---
DATE: 03/03/2018 PULMONARY PROGRESS NOTE REFERRING PHYSICIAN: Antonio Patel MD. SUBJECTIVE: He is lying in the bed, head at 45 degrees. Frustrated. Still has a cough and sputum production. Wants Levaquin to be given. Dr. Infante's note appreciated. Also spoke to the patient in detail about his finding on the x-ray with lung nodule and paratracheal mass. No nausea. No vomiting, diarrhea, leg pain, leg swelling. OBJECTIVE: GENERAL: In no acute distress. VITAL SIGNS: Temperature is 98, heart rate is 88, respiratory rate is 18, blood pressure 102/62, pulse ox 100% on nasal cannula. HEENT: Moist mucous membrane. Crowded airway. NECK: Supple. No JVD. LUNGS: Have a prolonged expiratory phase with wheezing and rhonchi. HEART: S1 and S2. ABDOMEN: Soft and nontender. No organomegaly. EXTREMITIES: There is no edema. NEUROLOGICAL: Awake and alert. Follows simple command. MEDICATIONS: He is on Mucomyst inhaled every 6 hours, Aldactone 25 mg daily, glimepiride 2 mg before breakfast daily, DuoNeb every 2 hours p.r.n. and every 6 hours [id number], Epivir 150 mg twice a day, metformin 500 mg twice a day, Levaquin 500 mg daily, gabapentin 300 mg three times a day, Norvasc 5 mg daily, Protonix 40 mg daily, getting Isentress 600 mg twice a day, Singulair 10 mg daily, Solu-Medrol 40 mg twice a day, Xanax 0.25 mg every 8 hours p.r.n. and Ziagen 300 mg twice a day. LABORATORY DATA: Shows hemoglobin 8.7, hematocrit 28.9, WBC 7.8, platelet count is 321. Sodium 137, potassium 4.8, chloride 103, bicarbonate 27, BUN 26, creatinine 1.1, glucose is 55 this afternoon, calcium 9.1, AST 19, ALT 26, alk phos is 85, albumin is 3.5. Microbiology: Blood culture has been negative. IMPRESSION AND PLAN: Chronic obstructive lung disease, substance abuse, human immunodeficiency virus positive, diabetes, hypertension, chronic pancreatitis, multiple joint pain, lung nodule and mediastinal and paratracheal adenopathy. I had a long discussion with the patient about his lung finding. Cannot rule out cancer until biopsy is done and it could be progressive disease and can kill him. He expressed understanding and does not want to touch it. Requesting the Levaquin should be changed to IV. We will continue IV and inhaled bronchodilator. Gastric and deep venous thrombosis prophylaxes. Thank you and we will follow with you. Ventura Browning MD
[2018-03-04] MEDS: Acetylcysteine 20% Inhal Soln (4ml) IH SCH ×4 (02:17→20:00)
[2018-03-04] MEDS: Albuterol-Ipratrop 3 mg / 0.5 (3 ml) UD IH SCH ×4 (02:17→20:00)
[2018-03-04] MEDS: Pantoprazole 40 mg EC Tab PO SCH (05:37)
[2018-03-04] MEDS: Insulin Lispro (HUMAlog) HIGH Coverage SC SCH ×4 (09:38→21:44)
[2018-03-04] MEDS: Insulin Lispro (humaLOG) MIX 75/25(10 ml) SC SCH ×2 (09:39→17:58)
[2018-03-04] MEDS: levoFLOXacin 500 mg in D5W 500 MG/100 ML BAG IVPB SCH (09:40)
[2018-03-04] MEDS: [UNRECOGNIZED DRUG - OTHER] PO SCH ×3 (09:40→17:58)
[2018-03-04] MEDS: PROTEASE PO SCH ×3 (09:40→17:58)
[2018-03-04] MEDS: AMYLASE PO SCH ×3 (09:40→17:58)
[2018-03-04] MEDS: LIPASE PO SCH ×3 (09:40→17:58)
[2018-03-04] MEDS: MethylPREDNISolone 40 mg Vial IV SCH ×2 (09:41→21:45)
[2018-03-04] MEDS: RALTEGRAVIR POTASSIUM 600 MG PO SCH ×2 (09:41→17:59)
--- NOTE | 2018-03-04 15:25 | PN ---
DATE: 03/03/2018 PULMONARY PROGRESS NOTE REFERRING PHYSICIAN: Dr. Patel. SUBJECTIVE: He is lying in the bed, sleepy, arousable, night was unremarkable. He is a little better, still has a cough with sputum production. No nausea, vomiting or diarrhea. No leg pain or leg swelling. Overnight events noted. IV insulin was discontinued, presently on 70/30 and regular coverage. OBJECTIVE: GENERAL: In no acute distress. VITAL SIGNS: Temperature is 98. heart rate is 78 respiratory rate is 18, blood pressure 112/60, pulse ox was 98% on nasal canula. HEENT: Moist mucous membrane. Crowded airway. NECK: Supple. No JVD. LUNGS: Have scattered rhonchi. HEART: S1 and S2. ABDOMEN: Soft and nontender. No organomegaly. EXTREMITIES: There is no edema. NEUROLOGIC: Awake and alert. Follows simple commands. MEDICATIONS: He is on Mucomyst 20% inhaled every 6 hours, Aldactone 25 mg daily, glimepiride 2 mg before breakfast daily, DuoNeb every 12 hours p.r.n. and every 6 hours [id number], Epivir 150 mg twice a day, Glucophage 500 mg twice a day, insulin coverage, Levaquin 500 mg IV daily, amylase/lipase capsule 3 times a day, Norvasc 5 mg daily, Protonix 40 mg daily, Singulair 10 mg at bedtime, Solu-Medrol 40 mg every 12 hours, Xanax 0.25 mg 3 times a day p.r.n., Ziagen 300 mg twice a day. LABORATORY DATA: Reviewed. Blood sugar this morning 263. Microbiology: Blood culture has been negative. IMPRESSION AND PLAN: Lung mass, mediastinal and tracheal lymphadenopathy, chronic obstructive lung disease, human immunodeficiency virus positive, hypertension, chronic pancreatitis, multiple joint pains. I spoke to nursing staff. IV insulin is discontinued, presently on coverage 70/30 insulin. Continue Solu-Medrol, continue antibiotics, inhaled bronchodilator,leukotriene inhibitors. Out of bed to chair. I again spoke about lung findings with nodule, possibility of lung cancer. Patient does not want to consider any biopsy, chemoradiation after that in case we need. Understood it could be cancer and can kill him. Want to continue bronchodilator at present. Thank you and we will follow with you. Ventura Browning MD [facility] # [id number]
--- NOTE | 2018-03-04 18:32 | PN ---
DATE: 03/04/2018 SUBJECTIVE: The patient is 63 years old, seen and examined, lying in bed, seems to be comfortable and states cough is better. He states he does not want any intervention done for the mass, and even if he learnt that he has cancer, he does not want to get treated. PHYSICAL EXAMINATION GENERAL: He is awake, alert, oriented. Able to communicate. VITAL SIGNS: He is afebrile, pulse 70, respirations 19, blood pressure 112/64. LUNGS: Bilateral occasional expiratory rhonchi. HEART: S1, S2 audible. ABDOMEN: Soft, nontender. No rebound, no guarding. NEUROLOGIC: The patient is awake, alert, oriented. Communicative. LABORATORY DATA: Blood sugar is 263. ASSESSMENT: 1. Right upper lung mass. 2. COPD exacerbation. 3. HIV positive. 4. Tiu-vpzdwua-jxdlceoog diabetes. PLAN: Currently, the patient is on Levaquin. We will monitor blood sugar. Continue prednisone. We will taper down slowly and we will reevaluate him. Antonio Patel MD (Delete this signature block when dictator is a preceptor.) cc: MD River (Delete if not dictated.)
--- NOTE | 2018-03-04 20:03 | PN ---
DATE: 03/04/2018 SUBJECTIVE: The patient seen earlier today, no acute distress, nontoxic. He complained this morning that he did not get adequate sleep last night. OBJECTIVE: VITAL SIGNS: The patient's temperature is 98, blood pressure is 104/60, and respiratory rate is 20. HEENT: Unremarkable. NECK: Supple. LUNGS: Have decreased breath sounds. HEART: Normal S1 and S2. ABDOMEN: Soft and nontender. LABORATORY DATA: Reveals a white count of 7.8. Chemistries are noted. Microbiology is noted. Blood cultures are negative. Review of orders reveals the patient to be on Epivir 150 mg p.o. b.i.d., Solu-Medrol, abacavir, and raltegravir. ASSESSMENT AND PLAN: This is a 63-year-old male seen earlier this morning who was admitted with chronic obstructive pulmonary disease excerebration, right upper lobe mass, history of human immunodeficiency virus, hepatitis C, diabetes, chronic obstructive lung disease, hypertension, pancreatitis, polysubstance abuse. and invasive radiology indicates for the lung mass workup. We will continue human immunodeficiency virus medications. Biopsy should be sent for AFB fungal, smears and cultures, and in addition to Gram-stain, routine cultures and pathology of course. The patient who is T4 with 30% in 01/2018 87 at the same time in 01/2018, which is not consistent with 30% of CD4 count. Elvis Matias MD
[2018-03-05] MEDS: Albuterol-Ipratrop 3 mg / 0.5 (3 ml) UD IH SCH ×4 (02:00→20:07)
[2018-03-05] MEDS: Acetylcysteine 20% Inhal Soln (4ml) IH SCH ×3 (02:00→13:54)
[2018-03-05] MEDS: Pantoprazole 40 mg EC Tab PO SCH (06:13)
--- NOTE | 2018-03-05 06:38 | CP.PCM.PN ---
<Starr Mccord - Last Filed: 03/05/18 11:35> Subjective - Date & Time of Evaluation Date of Evaluation: 03/05/18 Time of Evaluation: 07:00 - Subjective Subjective: Infectious Disease Progress Note for Rogelio Black PGY3 Patient seen and examined at bedside. He is saying he having some pain with eating. He reports he feels congested. He is resting in bed and is afebrile. Objective - Vital Signs/Intake and Output Vital Signs (last 24 hours): Temp Pulse Resp BP Pulse Ox 98.4 F 75 20 129/80 99 03/05/18 00:00 03/05/18 00:00 03/05/18 00:00 03/05/18 00:00 03/05/18 00:00 Intake and Output: 03/04/18 03/05/18 18:59 06:59 Intake Total 1080 Output Total 900 Balance 180 - Medications Medications: Current Medications Abacavir Sulfate (Ziagen) 300 mg PO BID [facility]; Protocol Last Admin: 03/04/18 18:05 Dose: 300 mg Acetylcysteine (Acetylcysteine 20%) 4 ml IH [id number] [facility] Last Admin: 03/05/18 02:00 Dose: Not Given Albuterol/Ipratropium (Duoneb 3 Mg/0.5 Mg (3 Ml) Ud) 3 ml IH Q2H PRN PRN Reason: Shortness of Breath Last Admin: 03/02/18 23:53 Dose: 3 ml Albuterol/Ipratropium (Duoneb 3 Mg/0.5 Mg (3 Ml) Ud) 3 ml IH [id number] [facility] Last Admin: 03/05/18 02:00 Dose: Not Given Alprazolam (Xanax) 0.25 mg PO TID PRN; Protocol PRN Reason: Anxiety Stop: 03/08/18 22:13 Last Admin: 03/04/18 18:07 Dose: 0.25 mg Amlodipine Besylate (Norvasc) 5 mg PO DAILY [facility] Last Admin: 03/04/18 09:41 Dose: 5 mg Diphenhydramine HCl (Benadryl) 25 mg PO HS PRN PRN Reason: Insomnia Last Admin: 03/04/18 21:41 Dose: 25 mg Gabapentin (Neurontin) 300 mg PO TID [facility]; Protocol Last Admin: 03/04/18 18:05 Dose: 300 mg Glimepiride (Amaryl) 2 mg PO ACBD [facility] Last Admin: 03/04/18 16:30 Dose: 2 mg Levofloxacin/Dextrose (Levaquin 500mg) 500 mg in 100 mls @ 100 mls/hr IVPB DAILY [facility]; Protocol Last Admin: 03/04/18 09:40 Dose: 100 mls/hr Insulin Human Lispro (Humalog High) 0 units SC ACHS [facility]; Protocol Last Admin: 03/04/18 21:44 Dose: Not Given Insulin Lispro Protam/Lispro Human (Humalog Mix 75/25) 15 units SC ACBD [facility] Last Admin: 03/04/18 17:58 Dose: Not Given Lamivudine (Epivir) 150 mg PO BID [facility]; Protocol Last Admin: 03/04/18 18:07 Dose: 150 mg Metformin HCl (Glucophage) 500 mg PO BID [facility] Last Admin: 03/04/18 18:06 Dose: 500 mg Methylprednisolone (Solu-Medrol) 40 mg IV Q12 [facility] Last Admin: 03/04/18 21:45 Dose: 40 mg Montelukast Sodium (Singulair) 10 mg PO HS [facility] Last Admin: 03/04/18 21:45 Dose: 10 mg Non-Formulary Medication (Lipase/Protease/Amylase [Creon Dr 12,000 Units Capsule]) 1 each PO TID [facility] Last Admin: 03/04/18 17:58 Dose: Not Given Non-Formulary Medication (Raltegravir Potassium [Isentress Hd]) 600 mg PO BID [facility] Last Admin: 03/04/18 17:59 Dose: Not Given Pantoprazole Sodium (Protonix Ec Tab) 40 mg PO 0630 [facility] Last Admin: 03/05/18 06:13 Dose: 40 mg Spironolactone (Aldactone) 25 mg PO DAILY [facility] Last Admin: 03/04/18 09:37 Dose: 25 mg - Labs Labs: 03/03/18 06:00 03/03/18 06:00 - Constitutional Appears: No Acute Distress - Head Exam Head Exam: ATRAUMATIC, NORMAL INSPECTION, NORMOCEPHALIC - Eye Exam Eye Exam: Normal appearance, PERRL Pupil Exam: NORMAL ACCOMODATION, PERRL - ENT Exam ENT Exam: Mucous Membranes Moist Additional comments: mild white scrapeable plaque on tongue - Respiratory Exam Respiratory Exam: Decreased Breath Sounds, Clear to Ausculation Bilateral, NORMAL BREATHING PATTERN. absent: Rales, Rhonchi, Wheezes - Cardiovascular Exam Cardiovascular Exam: REGULAR RHYTHM, +S1, +S2. absent: Gallop, Rubs, Murmur - GI/Abdominal Exam GI & Abdominal Exam: Soft, Normal Bowel Sounds. absent: Rigid, Tenderness, Mass, Rebound - Extremities Exam Extremities Exam: Normal Inspection. absent: Calf Tenderness, Pedal Edema - Neurological Exam Neurological Exam: Alert, Awake, CN II-XII Intact, Oriented x3 - Psychiatric Exam Psychiatric exam: Normal Affect, Normal Mood - Skin Skin Exam: Dry, Warm Assessment and Plan - Assessment and Plan (Free Text) Assessment: 1. COPD exacerbation 2. RUL mass 3. HIV 4. Hep C 5. DM II 6. COPD 7. HTN 8. Hx of pancreatitis 9. Former polysubstance abuser 10. Oral thrush Plan: Will start Nystatin swish/swallow x 3-5 days for thrush. Will continue Abacavir, Lamuvidine and Raltegravir for HIV. Continue Levaquin x 1 more day. Will dc in AM. Patient refusing biopsy of lung mass at this time. Will continue to monitor clinically. Case seen, discussed and reviewed with Dr. Rossana Mccord PGY3 <Wilfredo Tracy - Last Filed: 03/05/18 20:13> Objective - Vital Signs/Intake and Output Vital Signs (last 24 hours): Temp Pulse Resp BP Pulse Ox 98.4 F 90 19 124/83 98 03/05/18 17:15 03/05/18 17:15 03/05/18 17:15 03/05/18 17:15 03/05/18 17:15 Intake and Output: 03/05/18 03/06/18 18:59 06:59 Intake Total 400 Balance 400 - Medications Medications: Current Medications Abacavir Sulfate (Ziagen) 300 mg PO BID [facility]; Protocol Last Admin: 03/05/18 17:31 Dose: 300 mg Albuterol/Ipratropium (Duoneb 3 Mg/0.5 Mg (3 Ml) Ud) 3 ml IH Q2H PRN PRN Reason: Shortness of Breath Last Admin: 11/16/18 18:44 Dose: 3 ml Albuterol/Ipratropium (Duoneb 3 Mg/0.5 Mg (3 Ml) Ud) 3 ml IH [id number] [facility] Last Admin: 03/05/18 20:07 Dose: Not Given Alprazolam (Xanax) 0.25 mg PO TID PRN; Protocol PRN Reason: Anxiety Stop: 03/08/18 22:13 Last Admin: 03/05/18 18:18 Dose: 0.25 mg Amlodipine Besylate (Norvasc) 5 mg PO DAILY [facility] Last Admin: 03/05/18 12:08 Dose: 5 mg Diphenhydramine HCl (Benadryl) 25 mg PO HS PRN PRN Reason: Insomnia Last Admin: 03/04/18 21:41 Dose: 25 mg Gabapentin (Neurontin) 300 mg PO TID [facility]; Protocol Last Admin: 03/05/18 18:26 Dose: 300 mg Glimepiride (Amaryl) 2 mg PO ACBD [facility] Last Admin: 03/05/18 17:32 Dose: 2 mg Guaifenesin/Dextromethorphan (Mucinex-Dm 600-30 Mg) 1 tab PO BID [facility] Levofloxacin/Dextrose (Levaquin 500mg) 500 mg in 100 mls @ 100 mls/hr IVPB DAILY [facility]; Protocol Last Admin: 03/05/18 09:14 Dose: 100 mls/hr Insulin Human Lispro (Humalog High) 0 units SC ACHS [facility]; Protocol Last Admin: 03/05/18 17:14 Dose: Not Given Insulin Lispro Protam/Lispro Human (Humalog Mix 75/25) 15 units SC ACBD [facility] Last Admin: 03/05/18 17:15 Dose: Not Given Lamivudine (Epivir) 150 mg PO BID [facility]; Protocol Last Admin: 03/05/18 17:32 Dose: 150 mg Metformin HCl (Glucophage) 500 mg PO BID [facility] Last Admin: 03/05/18 17:31 Dose: 500 mg Methylprednisolone (Solu-Medrol) 30 mg IV Q12 [facility] Montelukast Sodium (Singulair) 10 mg PO HS [facility] Last Admin: 03/04/18 21:45 Dose: 10 mg Non-Formulary Medication (Lipase/Protease/Amylase [Creon Dr 12,000 Units Capsule]) 1 each PO TID [facility] Last Admin: 03/05/18 17:16 Dose: Not Given Non-Formulary Medication (Raltegravir Potassium [Isentress Hd]) 600 mg PO BID [facility] Last Admin: 03/05/18 17:16 Dose: Not Given Nystatin (Nystatin Oral Susp) 5 ml PO QID [facility] Last Admin: 03/05/18 18:26 Dose: 5 ml Pantoprazole Sodium (Protonix Ec Tab) 40 mg PO 0630 [facility] Last Admin: 03/05/18 06:13 Dose: 40 mg Spironolactone (Aldactone) 25 mg PO DAILY [facility] Last Admin: 03/05/18 12:07 Dose: 25 mg - Labs Labs: 03/03/18 06:00 03/03/18 06:00 Assessment and Plan - Assessment and Plan (Free Text) Plan: Infectious Diseases Attending Physician Attestation Patient seen and examined, discussed with medical lead. I have reviewed the patient's history of present illness, past medical, family and social histories, personal history, physical exam, lab findings and imaging studies. I agree with the above findings, assessment and plan. In addition, continue cART for chronic HIV infection. Complete 2 more days of Levaquin for acute exacerbation of COPD. Recommend biopsy of right upper lobe lung mass and Pulmonary is seeing the patient.
[2018-03-05] MEDS: Insulin Lispro (humaLOG) MIX 75/25(10 ml) SC SCH ×2 (08:55→17:15)
[2018-03-05] MEDS: Insulin Lispro (HUMAlog) HIGH Coverage SC SCH ×3 (09:02→17:14)
[2018-03-05] MEDS: levoFLOXacin 500 mg in D5W 500 MG/100 ML BAG IVPB SCH (09:14)
[2018-03-05] MEDS: [UNRECOGNIZED DRUG - OTHER] PO SCH ×3 (10:50→17:16)
[2018-03-05] MEDS: AMYLASE PO SCH ×3 (10:50→17:16)
[2018-03-05] MEDS: PROTEASE PO SCH ×3 (10:50→17:16)
[2018-03-05] MEDS: LIPASE PO SCH ×3 (10:50→17:16)
[2018-03-05] MEDS: Nystatin 100,000 Units/ml Oral Susp 5 ml UD PO SCH ×3 (13:43→22:28)
[2018-03-05] MEDS: RALTEGRAVIR POTASSIUM 600 MG PO SCH ×2 (13:44→17:16)
--- NOTE | 2018-03-05 14:29 | PN ---
DATE: 03/05/2018 SUBJECTIVE: Patient is 63 years old; still has cough, congestion and wheezing and does not want to ambulate. He states his back hurts. PHYSICAL EXAMINATION: VITAL SIGNS: He is afebrile, pulse 75, respirations 20, blood pressure 130/90. LUNGS: Bilateral fair airflow. Positive bilateral soft crackles in the upper lung region. HEART: S1, S2 audible. ABDOMEN: Soft, nontender. No rebound. No guarding. NEUROLOGICAL: Patient is awake, alert, oriented, communicative. LABORATORY DATA: Blood cultures are negative. His hemoglobin seems to be stable. Blood sugar is 166. ASSESSMENT: 1. Right upper lung mass. He was evaluated by Dr. Fabian Infante, does not want to have biopsy done. He was told it could be considered but he does not want to know. 2. Chronic obstructive pulmonary disease exacerbation. 3. Human immunodeficiency virus positive. 4. Hepatitis C. 5. Qqe-pabosaw-vtixtbjga diabetes. 6. History of pancreatitis in the past. 7. History of multidrug abuse. PLAN: Currently, the patient is on Levaquin. We will taper down steroids, encourage ambulation. Possible discharge in the morning. Patient is very noncompliant. I fear that he might not even take any medication upon discharge and come back with similar complaints. I will cut down his steroids from 40 to 30 every 12 and reevaluate in the morning. We will possibly discharge in a day or two. Antonio Patel MD
[2018-03-05] MEDS: Albuterol-Ipratrop 3 mg / 0.5 (3 ml) UD IH PRN (18:44)
[2018-03-05] MEDS: MethylPREDNISolone 40 mg Vial IV SCH (22:28)
--- NOTE | 2018-03-05 23:27 | PN ---
DATE: 03/05/2018 PULMONARY PROGRESS NOTE REFERRING PHYSICIAN: Dr. Patel SUBJECTIVE: He is lying in the bed, head at 45 degrees, feels much better. Still having cough, but decreased pulmonary secretion. No chest pain. No nausea. No vomiting, diarrhea, leg pain, or leg swelling. OBJECTIVE: GENERAL: In no acute distress. VITAL SIGNS: Temperature is 98, heart rate 92, respiratory rate is 18, blood pressure 124/83, and pulse ox is 98% on nasal cannula. HEENT: Moist mucous membrane. No ulcer or thrush. NECK: Supple. No JVD. HEART: S1 and S2. LUNGS: Scattered rhonchi. Few wheezing. ABDOMEN: Soft and nontender. No organomegaly. EXTREMITIES: There is no edema. NEUROLOGIC: Awake and alert. Follows simple commands. LABORATORY DATA: Blood sugar this morning was 107. Microbiology, blood culture has no growth. MEDICATIONS: He is on Mucomyst which he has refused to take, Bactrim 25 mg daily, glimepiride 2 mg a.c. b.d., Benadryl 25 mg at bedtime p.r.n., DuoNeb every 6 hours around the clock and every 2 hours p.r.n., Epivir 150 mg twice a day, metformin 500 mg twice a day, insulin coverage, Levaquin 500 mg IV daily, amylase, lipase and protease 1 capsule three times a day, Neurontin 300 mg 3 times a day, Norvasc 5 mg daily, nystatin oral suspension four times a day, Protonix 40 mg daily, also Isentress 600 mg twice a day, Singulair 10 mg daily, Solu-Medrol 20 mg every 12 hours, Xanax 0.25 mg three times a day, Ziagen 300 mg twice a day. IMPRESSION AND PLAN: Chronic obstructive lung disease, lung mass, mediastinal and tracheal adenopathy, human immunodeficiency positive, hypertension, chronic pancreatitis, multiple joint pains. Pulmonary point of view, he is okay, agree with trying to cut down the steroids. Continue antibiotics. The patient refused to take Mucomyst. We will give Mucinex 600 mg twice a day. Gastric prophylaxis, deep vein thrombosis prophylaxis. Still refusing lung biopsy and understanding risk of cancer in that. Thank you and we will follow with you. Ventura Browning MD [facility] # [id number]
[2018-03-06] MEDS: Albuterol-Ipratrop 3 mg / 0.5 (3 ml) UD IH SCH ×3 (01:50→13:23)
[2018-03-06] MEDS: Pantoprazole 40 mg EC Tab PO SCH (06:24)
[2018-03-06 06:30] LABS: HEMOGLOBIN 9.9 g/dL (14.0-18.0); MEAN CELL VOLUME 78.9 fl (80.0-105.0); MEAN CORPUSCULAR HEMOGLOBIN 23.7 pg (25.0-35.0); MEAN CORPUSCULAR HGB CONC 30.1 g/dl (31.0-37.0); MEAN PLATELET VOLUME 9.6 fl (7.0-11.0); RBC 4.17 10^6/uL (3.5-6.1); RED CELL DISTRIBUTION WIDTH 15.6 % (11.5-14.5); WHITE BLOOD COUNT 9.9 10^3/uL (4.5-11.0)
[2018-03-06 06:55] LABS: ALBUMIN 3.5 g/dL (3.0-4.8); ALT/SGPT 18 U/L (7-56); AST/SGOT 20 U/L (17-59); BLOOD UREA NITROGEN 35 mg/dL (7-21); CALCIUM 9.2 mg/dL (8.4-10.5); GFR NON-AFRICAN AMERICAN > 60
[2018-03-06 08:07] VITALS: BP 131/90; PULSE 75; RESP 18; TEMP 97.8; O2SAT 99
[2018-03-06] MEDS: Insulin Lispro (humaLOG) MIX 75/25(10 ml) SC SCH (08:45)
[2018-03-06] MEDS: Insulin Lispro (HUMAlog) HIGH Coverage SC SCH ×2 (08:45→11:52)
[2018-03-06] MEDS ORDERED: guaiFENesin-DM 600-30 mg ER Tab PO SCH (10:00)
[2018-03-06] MEDS: levoFLOXacin 500 mg in D5W 500 MG/100 ML BAG IVPB SCH (10:24)
[2018-03-06] MEDS: [UNRECOGNIZED DRUG - OTHER] PO SCH ×2 (10:25→14:14)
[2018-03-06] MEDS: Nystatin 100,000 Units/ml Oral Susp 5 ml UD PO SCH ×2 (10:25→14:16)
[2018-03-06] MEDS: PROTEASE PO SCH ×2 (10:25→14:14)
[2018-03-06] MEDS: LIPASE PO SCH ×2 (10:25→14:14)
[2018-03-06] MEDS: AMYLASE PO SCH ×2 (10:25→14:14)
[2018-03-06] MEDS: MethylPREDNISolone 40 mg Vial IV SCH (10:26)
[2018-03-06] MEDS: RALTEGRAVIR POTASSIUM 600 MG PO SCH (10:26)
--- NOTE | 2018-03-06 12:15 | CP.PCM.PN ---
Subjective - Date & Time of Evaluation Date of Evaluation: 03/06/18 Time of Evaluation: 08:50 - Subjective Subjective: Cough is better, no fevers. Objective - Vital Signs/Intake and Output Vital Signs (last 24 hours): Temp Pulse Resp BP Pulse Ox 98.4 F 90 19 124/83 98 03/05/18 17:15 03/05/18 17:15 03/05/18 17:15 03/05/18 17:15 03/05/18 17:15 Intake and Output: 03/05/18 03/06/18 18:59 06:59 Intake Total 400 Balance 400 - Medications Medications: Current Medications Abacavir Sulfate (Ziagen) 300 mg PO BID [facility]; Protocol Last Admin: 03/05/18 17:31 Dose: 300 mg Albuterol/Ipratropium (Duoneb 3 Mg/0.5 Mg (3 Ml) Ud) 3 ml IH Q2H PRN PRN Reason: Shortness of Breath Last Admin: 03/05/18 18:44 Dose: 3 ml Albuterol/Ipratropium (Duoneb 3 Mg/0.5 Mg (3 Ml) Ud) 3 ml IH [id number] [facility] Last Admin: 03/05/18 20:07 Dose: Not Given Alprazolam (Xanax) 0.25 mg PO TID PRN; Protocol PRN Reason: Anxiety Stop: 03/08/18 22:13 Last Admin: 03/05/18 18:18 Dose: 0.25 mg Amlodipine Besylate (Norvasc) 5 mg PO DAILY [facility] Last Admin: 03/05/18 12:08 Dose: 5 mg Diphenhydramine HCl (Benadryl) 25 mg PO HS PRN PRN Reason: Insomnia Last Admin: 03/04/18 21:41 Dose: 25 mg Gabapentin (Neurontin) 300 mg PO TID [facility]; Protocol Last Admin: 03/05/18 18:26 Dose: 300 mg Glimepiride (Amaryl) 2 mg PO ACBD [facility] Last Admin: 03/05/18 17:32 Dose: 2 mg Guaifenesin/Dextromethorphan (Mucinex-Dm 600-30 Mg) 1 tab PO BID [facility] Levofloxacin/Dextrose (Levaquin 500mg) 500 mg in 100 mls @ 100 mls/hr IVPB DAILY [facility]; Protocol Last Admin: 03/05/18 09:14 Dose: 100 mls/hr Insulin Human Lispro (Humalog High) 0 units SC ACHS [facility]; Protocol Last Admin: 03/05/18 17:14 Dose: Not Given Insulin Lispro Protam/Lispro Human (Humalog Mix 75/25) 15 units SC ACBD [facility] Last Admin: 03/05/18 17:15 Dose: Not Given Lamivudine (Epivir) 150 mg PO BID [facility]; Protocol Last Admin: 03/05/18 17:32 Dose: 150 mg Metformin HCl (Glucophage) 500 mg PO BID [facility] Last Admin: 03/05/18 17:31 Dose: 500 mg Methylprednisolone (Solu-Medrol) 30 mg IV Q12 [facility] Montelukast Sodium (Singulair) 10 mg PO HS [facility] Last Admin: 03/04/18 21:45 Dose: 10 mg Non-Formulary Medication (Lipase/Protease/Amylase [[place]ong [place] 12,000 Units Cap nick]) 1 each PO TID [facility] Last Admin: 03/05/18 17:16 Dose: Not Given Non-Formulary Medication (Raltegravir Potassium [Isentress Hd]) 600 mg PO BID [facility] Last Admin: 03/05/18 17:16 Dose: Not Given Nystatin (Nystatin Oral Susp) 5 ml PO QID [facility] Last Admin: 03/05/18 18:26 Dose: 5 ml Pantoprazole Sodium (Protonix Ec Tab) 40 mg PO 0630 [facility] Last Admin: 03/05/18 06:13 Dose: 40 mg Spironolactone (Aldactone) 25 mg PO DAILY [facility] Last Admin: 03/05/18 12:07 Dose: 25 mg - Labs Labs: 03/03/18 06:00 03/03/18 06:00 - Constitutional Appears: Chronically Ill - Head Exam Head Exam: NORMAL INSPECTION - Respiratory Exam Respiratory Exam: Decreased Breath Sounds - Cardiovascular Exam Cardiovascular Exam: +S1, +S2 - GI/Abdominal Exam GI & Abdominal Exam: Soft. absent: Tenderness Assessment and Plan - Assessment and Plan (Free Text) Plan: Assessment acute exacerbation of COPD chronic HIV infection oral thrush right upper lobe lung mass hepatitis C infection history of pancreatitis history of polysubstance abuse Plan complete 3-5 days of Levaquin (day 4 today) - can switch to PO equivalent continue Nystatin swish and swallow continue cART and should follow up with HIV provider as outpatient follow up plans for biopsy of lung mass, but patient is currently refusing despite adequate explanation
[2018-03-06] MEDS ORDERED: Pneumococcal 23-Valent Vaccine IM ONE (14:24)
--- NOTE | 2018-03-07 03:55 | DS ---
HISTORY OF PRESENT ILLNESS: The patient is 63 years old. He came in because of increasing cough, congestion, and shortness of breath. He has been in multiple different hospitals with the similar complaints and signed against medical advice almost a week ago, then he went to [facility], but he came back here again. He was admitted for IV antibiotics and given steroids, seems to be doing better. PAST MEDICAL HISTORY: 1. He has significant past medical history of being HIV positive. 2. COPD. 3. History of utj-apvsukx-mqirzmftt diabetes. 4. Anxiety disorder. 5. Recurrent pancreatitis. 6. Generalized osteoarthritis. 7. Chronic back pain. The patient was given IV steroid. He was resumed on his HIV medications, doing well, wants to be home. PHYSICAL EXAMINATION: VITAL SIGNS: He is afebrile, pulse 75, respirations 18, and blood pressure 131/90. LUNGS: Bilateral diffusely decreased breath sounds. Occasional expiratory rhonchi. HEART: S1 and S2 audible. ABDOMEN: Soft and nontender. No rebound. No guarding. NEUROLOGIC: Patient is awake, alert, oriented, and communicative. EXTREMITIES: Moves all extremities. LABORATORY EXAM: WBC is 9.9, hemoglobin 9.9, hematocrit 32.9, and platelet of 363,000. Chemistry: Sodium 135, potassium 4.7, chloride 99, CO2 of 29, BUN 35, creatinine 1.2. Blood sugar 191. His CT scan shows right upper lung mass. Dr. Fabian Infante was involved and was recommended to have biopsy done, the patient directly refused. He does not want to be . He was told it could be malignancy because of history of heavy smoking and being HIV positive, but the patient stated even if it is cancer he does not want to know. He understood the consequences of not having biopsy done. ASSESSMENT AND PLAN: 1. Human immunodeficiency virus positive. 2. Right upper lung mass. 3. Chronic obstructive pulmonary disease exacerbation. 4. Hypertension. 5. Non-insulin dependent diabetes. PLAN: The patient is being discharged home. He is going to resume all his medications. He is given Levaquin 500 daily for 5 more days and he is given prednisone 20 mg twice a day for 5 days. He will follow with his PMD. Antonio Patel MD [facility] # [id number]
== END 2018-03-06 15:17 | disposition home or self-care (01) | DRG 191 ==
LOC: ED 19:00 → ERH 22:13 → 3RSO 23:45
PROVIDERS: ADMIT Internal Medicine; ATTEND Internal Medicine
PROC: 3E0234Z Introduction of Serum, Toxoid and Vaccine into Muscle, Percutaneous Approach (ICD-10-PCS; principal; 2018-03-06)
DX: J44.1 Chronic obstructive pulmonary disease with (acute) exacerbation (principal); K86.1 Other chronic pancreatitis; B37.0 Candidal stomatitis; I10 Essential (primary) hypertension; E11.9 Type 2 diabetes mellitus without complications; B19.20 Unspecified viral hepatitis C without hepatic coma; F41.9 Anxiety disorder, unspecified; F10.10 Alcohol abuse, uncomplicated; G89.29 Other chronic pain; Z21 Asymptomatic human immunodeficiency virus [HIV] infection status; M15.9 Polyosteoarthritis, unspecified; Z87.891 Personal history of nicotine dependence; Z91.19 Patient's noncompliance with other medical treatment and regimen; Z91.14 Patient's other noncompliance with medication regimen; R91.8 Other nonspecific abnormal finding of lung field; R91.1 Solitary pulmonary nodule; F19.10 Other psychoactive substance abuse, uncomplicated; G47.33 Obstructive sleep apnea (adult) (pediatric); D64.9 Anemia, unspecified; Z79.899 Other long term (current) drug therapy; Z87.01 Personal history of pneumonia (recurrent); Z87.440 Personal history of urinary (tract) infections; Z98.41 Cataract extraction status, right eye; Z86.19 Personal history of other infectious and parasitic diseases; Z23 Encounter for immunization

== ENCOUNTER 2018-03-23 21:16 | Emergency (ER) | payer MEDICARE, MEDICAID ==
[2018-03-23 21:58] VITALS: BMI 26.2
[2018-03-23] MEDS: Albuterol-Ipratrop 3 mg / 0.5 (3 ml) UD IH SCH ×3 (22:30→23:02)
--- NOTE | 2018-03-23 22:38 | ED PDOC ---
Arrival/HPI - General Chief Complaint: Shortness Of Breath Time Seen by Provider: 03/23/18 21:23 Historian: Patient - History of Present Illness Narrative History of Present Illness (Text): 03/23/18 22:35 63 year old male, whose past medical history includes HIV on HAART, COPD, diabetes, diabetic neuropathy, hypertension, and pancreatitis, presents to the Emergency department complaining of shortness of breath. Patient states he has been experiencing gradually worsening shortness of breath tonight. Patient was on O2 therapy upon arrival. Patient denies any fevers, chills, headache, dizziness, chest pain, abdominal pain, nausea, vomiting, diarrhea, back pain, neck pain, or any other complaint. Time/Duration: Prior to Arrival Context: Home Past Medical History - Provider Review Nursing Documentation Reviewed: Yes - Infectious Disease Hx of Infectious Diseases: None - Tetanus Immunization Tetanus Immunization: Unknown - Cardiac Hx Hypertension: Yes - Pulmonary Hx Asthma: No (denies) Hx Sleep Apnea: Yes (occasional uses bipap) - Neurological Hx Seizures: No - HEENT Hx HEENT Disorder: Yes Hx Cataracts: Yes (right eye sx) - Renal Hx Renal Disorder: No - Endocrine/Metabolic Hx Diabetes Mellitus Type 2: Yes - Hematological/Oncological Hx Blood Disorders: Yes Hx Anemia: Yes (blood transfusion) Hx Hepatitis C: Yes - Integumentary Hx Dermatological Disorder: No - Musculoskeletal/Rheumatological Hx Arthritis: Yes - Gastrointestinal Hx Pancreatitis: Yes - Genitourinary/Gynecological Hx Sexually Transmitted Diseases: No - Psychiatric Hx Anxiety: Yes Hx Substance Use: Yes - Surgical History Hx Orthopedic Surgery: No - Anesthesia Hx Anesthesia: Yes Hx Anesthesia Reactions: No Hx Malignant Hyperthermia: No - Suicidal Assessment Feels Threatened In Home Enviroment: No Family/Social History - Physician Review Nursing Documentation Reviewed: Yes Family/Social History: No Known Family HX Smoking Status: Former Smoker Hx Alcohol Use: Yes Hx Substance Use: Yes Substance used: h/o heroine use Allergies/Home Meds Allergies/Adverse Reactions: Allergies No Known Allergies Allergy (Verified 03/23/18 21:58) Home Medications: Home Meds Medication Instructions Recorded Confirmed RX: Aspirin [Ecotrin] 81 mg PO DAILY 03/24/18 03/24/18 Review of Systems - Physician Review All systems were reviewed & negative as marked: Yes - Review of Systems Constitutional: absent: Fevers, Night Sweats Respiratory: SOB, Wheezing Cardiovascular: absent: Chest Pain Gastrointestinal: absent: Abdominal Pain, Diarrhea, Nausea, Vomiting Musculoskeletal: absent: Back Pain, Neck Pain Neurological: absent: Headache, Dizziness Physical Exam Vital Signs Reviewed: Yes Vital Signs Temp Pulse Resp BP Pulse Ox 03/23/18 22:02 98.6 F 96 H 20 128/71 97 03/23/18 21:58 98.6 F 99 H 18 128/71 95 Temperature: Afebrile Blood Pressure: Normal Pulse: Tachycardic Respiratory Rate: Normal Appearance: Positive for: Well-Appearing, Non-Toxic, Comfortable Pain Distress: None Mental Status: Positive for: Alert and Oriented X 3 - Systems Exam Head: Present: Atraumatic, Normocephalic Pupils: Present: PERRL Extroacular Muscles: Present: EOMI Conjunctiva: Present: Normal Mouth: Present: Moist Mucous Membranes Neck: Present: Normal Range of Motion Respiratory/Chest: Present: Wheezes. No: Respiratory Distress, Accessory Muscle Use, Rales, Rhonchi Cardiovascular: Present: Regular Rate and Rhythm, Normal S1, S2. No: Murmurs Abdomen: No: Tenderness, Distention, Peritoneal Signs Back: Present: Normal Inspection Upper Extremity: Present: Normal Inspection. No: Cyanosis, Edema Lower Extremity: Present: Normal Inspection. No: Edema Neurological: Present: Speech Normal Skin: Present: Warm, Dry, Normal Color. No: Rashes Psychiatric: Present: Alert, Oriented x 3, Normal Insight, Normal Concentration Medical Decision Making ED Course and Treatment: 03/23/18 22:40 Impression: 63 year old male presents with COPD exacerbation Plan: -- EKG -- Labs -- Chest X-ray -- Duoneb -- Solumedrol -- Reassess and disposition Prior Visits: Notes and results from previous visits were reviewed. case d/w dr lovelace will obs for cp Progress Notes: 03/25/18 17:11 - RAD Interpretation Radiology Orders: 03/23/18 22:06 CHEST PORTABLE [RAD] Stat - Medication Orders Current Medication Orders: Albuterol/Ipratropium (Duoneb 3 Mg/0.5 Mg (3 Ml) Ud) 3 ml IH Q15M [facility] Stop: 03/23/18 23:01 Discontinued Medications Methylprednisolone (Solu-Medrol) 125 mg IVP ONCE ONE Stop: 03/23/18 22:29 - Scribe Statement The provider has reviewed the documentation as recorded by the Jassonibjuliana Cardona Provider Scribe Attestation: All medical record entries made by the Scribe were at my direction and personally dictated by me. I have reviewed the chart and agree that the record accurately reflects my personal performance of the history, physical exam, medical decision making, and the department course for this patient. I have also personally directed, reviewed, and agree with the discharge instructions and disposition. Disposition/Present on Arrival - Present on Arrival Any Indicators Present on Arrival: No History of DVT/PE: No History of Uncontrolled Diabetes: No Urinary Catheter: No History of Decub. Ulcer: No History Surgical Site Infection Following: None - Disposition Have Diagnosis and Disposition been Completed?: Yes Diagnosis: Chest pain Disposition: AGAINST MEDICAL ADVICE Disposition Time: 01:30 Condition: FAIR Discharge Instructions (ExitCare): Chest Pain (ED)
[2018-03-23 23:14] LABS: BASO # 0.01 K/mm3 (0.0-2.0); BASO % 0.1 % (0.0-3.0); EOS # 0.1 (0.0-0.7); EOS % 1.1 % (1.5-5.0); GRAN # 7.96 (1.4-6.5); GRAN % 76.5 % (50.0-68.0); HEMOGLOBIN 8.8 g/dL (14.0-18.0); LYMPH # 1.7 (1.2-3.4); LYMPH % 16.1 % (22.0-35.0); MEAN CELL VOLUME 82.3 fl (80.0-105.0); MEAN CORPUSCULAR HEMOGLOBIN 23.6 pg (25.0-35.0); MEAN CORPUSCULAR HGB CONC 28.7 g/dl (31.0-37.0); MEAN PLATELET VOLUME 9.1 fl (7.0-11.0); MONO # 0.7 (0.1-0.6); MONO % 6.2 % (1.0-6.0); RBC 3.73 10^6/uL (3.5-6.1); RED CELL DISTRIBUTION WIDTH 17.4 % (11.5-14.5); WHITE BLOOD COUNT 10.4 10^3/uL (4.5-11.0)
[2018-03-23 23:19] LABS: INR 1.06; PARTIAL THROMBOPLASTIN TIME 24.8 Seconds (25.1-36.5); PROTHROMBIN TIME 12.1 SECONDS (9.4-12.5)
[2018-03-24 01:25] LABS: B-TYPE NATRIURETIC PEPTIDE 206 pg/mL (0-450)
[2018-03-24 01:47] LABS: ALB/GLOB RATIO 1.1 (1.1-1.8); ALBUMIN 3.4 g/dL (3.0-4.8); ALT/SGPT 34 U/L (7-56); AST/SGOT 15 U/L (17-59); BLOOD UREA NITROGEN 17 mg/dL (7-21); CALCIUM 8.4 mg/dL (8.4-10.5); GFR NON-AFRICAN AMERICAN > 60
[2018-03-24 02:11] LABS: TROPONIN I < 0.01 ng/mL
[2018-03-24] MEDS ORDERED: Albuterol-Ipratrop 3 mg / 0.5 (3 ml) UD IH PRN ×2 (02:28→12:06)
[2018-03-24] MEDS ORDERED: Sodium Chloride 0.9% 1,000 ML IV STA (02:28)
[2018-03-24 04:25] VITALS: O2SAT 100
[2018-03-24] MEDS: Insulin Reg-LOW-Coverage SC SCH ×2 (08:53→12:03)
[2018-03-24] MEDS ORDERED: Insulin Regular 1 UNITS/0.01 ML ML ONE ×2 (08:54→11:52)
--- NOTE | 2018-03-24 09:01 | RAD ---
Date of service: 03/23/2018 HISTORY: sob COMPARISON: 03/01/2018 FINDINGS: LUNGS: No active pulmonary disease. PLEURA: No significant pleural effusion identified, no pneumothorax apparent. CARDIOVASCULAR: No aortic atherosclerotic calcification present. Normal cardiac size. No pulmonary vascular congestion. OSSEOUS STRUCTURES: No significant abnormalities. VISUALIZED UPPER ABDOMEN: Normal. OTHER FINDINGS: None. IMPRESSION: No active disease.
--- NOTE | 2018-03-24 10:12 | CARD ---
APPROVED REPORT Date of service: 03/23/2018 EKG Measurement Heart [id number] <Conclusion> Normal sinus rhythm Normal ECG
[2018-03-24] MEDS ORDERED: MethylPREDNISolone 40 mg Vial IV SCH (12:15)
[2018-03-24] MEDS ORDERED: cefTRIAXone 1 gm 1 GM/100 ML BAG IVPB SCH (13:00)
--- NOTE | 2018-03-24 13:35 | CT ---
Date of service: 03/24/2018 PROCEDURE: CT Chest without contrast HISTORY: lung nodule COMPARISON: 03/01/2018 CT TECHNIQUE: Contiguous axial images were obtained through the chest without intravenous contrast enhancement. Sagittal and coronal reconstructions were performed. Radiation dose: Total exam DLP = 248.24 mGy-cm. This CT exam was performed using one or more of the following dose reduction techniques: Automated exposure control, adjustment of the mA and/or kV according to patient size, and/or use of iterative reconstruction technique. FINDINGS: LUNGS: There is a 9 x 20 mm irregular nodule in the right upper lobe suspicious for malignancy. Although it is unchanged from the previous study the time interval is very short, less than 1 month. Continued evaluation or biopsy is recommended. MEDIASTINUM: Unremarkable thoracic aorta. No aneurysm. Normal sized heart. Main pulmonary artery unremarkable. No vascular congestion. There is a pretracheal lymph node measuring 14 mm in diameter and 30 mm in length. This is unchanged. Mild aortic calcification. PLEURA: No pleural fluid. No pneumothorax. BONES: No fracture. No destructive lesion. UPPER ABDOMEN: Grossly unremarkable. OTHER FINDINGS: None. IMPRESSION: There is a 9 x 20 mm irregular nodule in the right upper lobe suspicious for malignancy. Although it is unchanged from the previous study the time interval is very short, less than 1 month. Continued evaluation or biopsy is recommended.
[2018-03-24] MEDS ORDERED: Albuterol-Ipratrop 3 mg / 0.5 (3 ml) UD IH SCH (14:00)
[2018-03-24] MEDS ORDERED: Amylase/Lipase/Protease 5,000 Units ECC PO SCH (14:00)
--- NOTE | 2018-03-24 14:03 | CP.PCM.CON ---
<Narayan Lai - Last Filed: 03/24/18 14:06> History of Present Illness - History of Present Illness History of Present Illness: ID Consult Note for Dr. Tracy CC: Cough congestion shortness of breath HPI: 63 M with a PMHx of HIV (on HAART), Hep C untreated, DM II, COPD, chronic pancreatitis, and HTN that presented to [facility] [place] for shortness of breath and cough. Patient reports [place] [facility] roughly [place]-8 days and was treated for his chronic kidney disease. He was feeling in his usual state of health until yesterday evening. He was in his bed, and upon transferring to his assistive ambulating device, felt flushed, lightheaded and then became more short of breath as the night progressed with a productive cough. Patient states he has a cough with white mucus and continue to feel short of breath. He denies chest pain, nausea/vomiting/diarrhea, fever/chills, numbness/tingling, dysuria or hematuria. Patient has been taking his HIV medications regularly. He no longer is able to visit his pharmacy, but has a "bulk" of his medications at home. Last CD4 count in 01/2018 is about 625. Past medical history: HIV (on HAART), Hep C, DM II, COPD, pancreatitis, HTN Past surgical history: R cataract surgery Home meds: Reviewed Allergies: NKDA Social history: Former tobacco abuse. Former Etoh abuse (quit many yrs ago) and former drug use. Family history: Non-contributory Review of Systems - Review of Systems Review of Systems: as per HPI otherwise negative Past Patient History - Infectious Disease Hx of Infectious Diseases: None - Tetanus Immunizations Tetanus Immunization: Unknown - Past Medical History & Family History Past Medical History?: Yes - Past Social History Smoking Status: Former Smoker - CARDIAC Hx Hypertension: Yes - PULMONARY Hx Asthma: No (denies) Hx Sleep Apnea: Yes (occasional uses bipap) - NEUROLOGICAL Hx Seizures: No - HEENT Hx HEENT Problems: Yes Hx Cataracts: Yes (right eye sx) - RENAL Hx Chronic Kidney Disease: No - ENDOCRINE/METABOLIC Hx Diabetes Mellitus Type 2: Yes - HEMATOLOGICAL/ONCOLOGICAL Hx Blood Disorders: Yes Hx Anemia: Yes (blood transfusion) Hx Hepatitis C: Yes - INTEGUMENTARY Hx Dermatological Problems: No - MUSCULOSKELETAL/RHEUMATOLOGICAL Hx Arthritis: Yes - GASTROINTESTINAL Hx Pancreatitis: Yes - GENITOURINARY/GYNECOLOGICAL Hx Sexually Transmitted Disorders: No - PSYCHIATRIC Hx Anxiety: Yes Hx Substance Use: Yes - SURGICAL HISTORY Hx Orthopedic Surgery: No - ANESTHESIA Hx Anesthesia: Yes Hx Anesthesia Reactions: No Hx Malignant Hyperthermia: No Meds Allergies/Adverse Reactions: Allergies Allergy/AdvReac Type Severity Reaction Status Date / Time No Known Allergies Allergy Verified 03/23/18 21:58 - Medications Medications: Current Medications Abacavir Sulfate (Ziagen) 300 mg PO BID [facility]MAYA; Protocol Acetaminophen (Tylenol 325mg Tab) 650 mg PO Q4H PRN PRN Reason: Pain, Mild (1-3) Albuterol/Ipratropium (Duoneb 3 Mg/0.5 Mg (3 Ml) Ud) 3 ml IH [id number] AMAYA Albuterol/Ipratropium (Duoneb 3 Mg/0.5 Mg (3 Ml) Ud) 3 ml IH Q2H PRN PRN Reason: Shortness of Breath Alprazolam (Xanax) 0.25 mg PO TID PRN; Protocol PRN Reason: Anxiety Stop: 03/31/18 12:04 Amlodipine Besylate (Norvasc) 5 mg PO DAILY [facility] Last Admin: 03/24/18 13:13 Dose: 5 mg Amylase (Pancrease [id number] U) 5,000 unit PO TID [facility] Last Admin: 03/24/18 13:45 Dose: 5,000 unit Furosemide (Lasix) 20 mg PO DAILY [facility] Last Admin: 03/24/18 13:13 Dose: 20 mg Gabapentin (Neurontin) 300 mg PO TID [facility]; Protocol Ceftriaxone Sodium (Rocephin 1 Gram Ivpb) 1 gm in 100 mls @ 100 mls/hr IVPB DAILY [facility]; Protocol Doxycycline Hyclate 100 mg/ (Sodium Chloride) 100 mls @ 100 mls/hr IVPB Q12 [facility]; Protocol Last Admin: 03/24/18 13:45 Dose: 100 mls/hr Insulin Human Lispro (Humalog High) 0 units SC ACHS [facility]; Protocol Lamivudine (Epivir) 300 mg PO DAILY [facility]; Protocol Last Admin: 03/24/18 13:45 Dose: 300 mg Methylprednisolone (Solu-Medrol) 40 mg IV Q12 [facility] Last Admin: 03/24/18 13:14 Dose: 40 mg Montelukast Sodium (Singulair) 10 mg PO HS [facility] Pantoprazole Sodium (Protonix Ec Tab) 40 mg PO 0630 [facility] Raltegravir (Isentress) 400 mg PO BID [facility]; Protocol Spironolactone (Aldactone) 25 mg PO DAILY [facility] Last Admin: 03/24/18 13:45 Dose: 25 mg Physical Exam - Constitutional Appears: No Acute Distress - Head Exam Head Exam: ATRAUMATIC, NORMAL INSPECTION, NORMOCEPHALIC - Eye Exam Eye Exam: EOMI, Normal appearance, PERRL Pupil Exam: NORMAL ACCOMODATION, PERRL - ENT Exam ENT Exam: Mucous Membranes Moist, Normal Exam - Respiratory Exam Respiratory Exam: Rhonchi, NORMAL BREATHING PATTERN - Cardiovascular Exam Cardiovascular Exam: Tachycardia, +S1, +S2 - GI/Abdominal Exam GI & Abdominal Exam: Normal Bowel Sounds, Soft. absent: Tenderness - Extremities Exam Extremities exam: Positive for: pedal edema, tenderness - Neurological Exam Neurological exam: Alert, CN II-XII Intact, Oriented x3, Reflexes Normal - Psychiatric Exam Psychiatric exam: Normal Affect, Normal Mood Results - Vital Signs Recent Vital Signs: Last Vital Signs Temp 98.6 F 03/24/18 12:56 Pulse 70 03/24/18 13:13 Resp 17 03/24/18 12:56 BP 128/67 03/24/18 13:13 Pulse Ox 100 03/24/18 12:56 - Labs Result Diagrams: 03/23/18 23:05 03/24/18 00:10 Labs: Laboratory Results - last 24 hr 03/23/18 03/23/18 03/24/18 23:05 23:05 00:10 WBC 10.4 RBC 3.73 Hgb 8.8 L Hct 30.7 L MCV 82.3 D MCH 23.6 L MCHC 28.7 L RDW 17.4 H Plt Count 337 MPV 9.1 Gran % 76.5 H Lymph % (Auto) 16.1 L Brewster % (Auto) 6.2 H Eos % (Auto) 1.1 L Baso % (Auto) 0.1 Gran # 7.96 H Lymph # (Auto) 1.7 Brewster # (Auto) 0.7 H Eos # (Auto) 0.1 Baso # (Auto) 0.01 PT 12.1 INR 1.06 APTT 24.8 L Sodium 140 Potassium 3.8 Chloride 106 Carbon Dioxide 26 Anion Gap 12 BUN 17 Creatinine 1.0 Est GFR ( Amer) > 60 Est GFR (Non-Af Amer) > 60 Random Glucose 240 H Calcium 8.4 Magnesium 1.8 Total Bilirubin 0.3 AST 15 L D ALT 34 Alkaline Phosphatase 101 Lactate Dehydrogenase 637 Total Creatine Kinase 67 Troponin I < 0.01 NT-Pro-B Natriuret Pep 206 Total Protein 6.6 Albumin 3.4 Globulin 3.2 Albumin/Globulin Ratio 1.1 Assessment & Plan - Assessment and Plan (Free Text) Assessment: 63 M with a PMHx of HIV (on HAART), Hep C untreated, DM II, COPD, chronic pancreatitis, and HTN that presented to [facility] [place] [facility] for shortness of breath and c ough. COPD exacerbation RUL mass HIV Hep C DM II COPD HTN Hx of pancreatitis Former polysubstance abuser Labs and imaging reviewed, fu HIV and viral load. CT chest shows enlarging RUL mass on previous admission, will fu bx. No evidence of pneumonia at this time. Will continue HIV medications (abacavir, Lamivudine, and Raltegravir). Consider short course of levaquin, continue to monitor clinically. Will fu for Hep C tx outpatient Case seen, discussed and reviewed with Dr. Tracy <Wilfredo Tracy - Last Filed: 03/24/18 22:58> Results - Vital Signs Recent Vital Signs: Last Vital Signs Temp 98 F 03/24/18 16:02 Pulse 77 03/24/18 16:02 Resp 20 03/24/18 16:02 BP 130/70 03/24/18 16:02 Pulse Ox 100 03/24/18 16:02 - Labs Result Diagrams: 03/23/18 23:05 03/24/18 00:10 Labs: Laboratory Results - last 24 hr 03/23/18 03/23/18 03/24/18 23:05 23:05 00:10 WBC 10.4 RBC 3.73 Hgb 8.8 L Hct 30.7 L MCV 82.3 D MCH 23.6 L MCHC 28.7 L RDW 17.4 H Plt Count 337 MPV 9.1 Gran % 76.5 H Lymph % (Auto) 16.1 L Brewster % (Auto) 6.2 H Eos % (Auto) 1.1 L Baso % (Auto) 0.1 Gran # 7.96 H Lymph # (Auto) 1.7 Brewster # (Auto) 0.7 H Eos # (Auto) 0.1 Baso # (Auto) 0.01 PT 12.1 INR 1.06 APTT 24.8 L Sodium 140 Potassium 3.8 Chloride 106 Carbon Dioxide 26 Anion Gap 12 BUN 17 Creatinine 1.0 Est GFR ( Amer) > 60 Est GFR (Non-Af Amer) > 60 POC Glucose (mg/dL) Random Glucose 240 H Calcium 8.4 Magnesium 1.8 Total Bilirubin 0.3 AST 15 L D ALT 34 Alkaline Phosphatase 101 Lactate Dehydrogenase 637 Total Creatine Kinase 67 Troponin I < 0.01 NT-Pro-B Natriuret Pep 206 Total Protein 6.6 Albumin 3.4 Globulin 3.2 Albumin/Globulin Ratio 1.1 03/24/18 08:49 WBC RBC Hgb Hct MCV MCH MCHC RDW Plt Count MPV Gran % Lymph % (Auto) Brewster % (Auto) Eos % (Auto) Baso % (Auto) Gran # Lymph # (Auto) Brewster # (Auto) Eos # (Auto) Baso # (Auto) PT INR APTT Sodium Potassium Chloride Carbon Dioxide Anion Gap BUN Creatinine Est GFR ( Amer) Est GFR (Non-Af Amer) POC Glucose (mg/dL) 377 H Random Glucose Calcium Magnesium Total Bilirubin AST ALT Alkaline Phosphatase Lactate Dehydrogenase Total Creatine Kinase Troponin I NT-Pro-B Natriuret Pep Total Protein Albumin Globulin Albumin/Globulin Ratio Assessment & Plan - Assessment and Plan (Free Text) Assessment: Infectious diseases Attending Physician Attestation Patient seen and examined, discussed with medical management trainer. I have reviewed the patient's history of present illness, past medical, social, personal and family histories, pertinent physical exam findings, course so far in this hospital admission, pertinent laboratory and imaging results. I agree with the above findings, assessment and plan. In addition, will continue cART for chronic HIV infection, started LEvaquin for acute COPD exacerbation. Patient with upper lobe lung mass - previously recommended CT-guided biopsy but patient is refusing.
--- NOTE | 2018-03-24 15:31 | HP ---
DATE OF EXAM: 03/24/2018 HISTORY OF PRESENT ILLNESS: The patient is a 63-year-old black male, known to me from previous admission, came to emergency room because of increasing cough, congestion and having shortness of breath. The patient was recently admitted with COPD exacerbation, he was found to have lung mass. Dr. Fabian Infante evaluated the patient to have biopsy done but he refused. He said he does not want to talk about that. No history of fever or chills. No history of nausea or vomiting. Complained of generalized weakness. PAST MEDICAL HISTORY: Significant for: 1. Human immunodeficiency virus positive, very noncompliant with medication. 2. Recently diagnosed lung mass, refused biopsy. 3. History of obstructive sleep apnea. 4. Nvi-dppgnno-djiwhqjdg diabetes. 5. Anxiety disorder. 6. Recurrent pancreatitis. 7. Osteoarthritis. 8. Degenerative disk disease. ALLERGIES: NOT ALLERGIC TO ANY MEDICATIONS. PAST SURGICAL HISTORY: Significant for right knee surgery and plastic surgery on his face. MEDICATION AT HOME: He is on amlodipine 5 mg daily, valsartan 150 daily, spironolactone 25 daily. He is on Isentress. He is on Singulair. He is on pancreatic enzymes. He is on Neurontin 300 three times a day, Lasix 20 daily, famotidine, Ziagen and Xanax as needed. SOCIAL HISTORY: History of heavy smoking, also history of drug use in the past. PHYSICAL EXAMINATION: GENERAL: Mild shortness of breath. VITAL SIGNS: He is afebrile, pulse 96, respirations 18, blood pressure 126/62. LUNGS: Bilateral fair airflow. Few expiratory rhonchi. HEART: S1, S2 audible. ABDOMEN: Soft and nontender. No rebound. No guarding. NEUROLOGICAL: The patient is awake, alert and oriented, able to communicate. LABORATORY DATA: WBC is 7.4, hemoglobin 8.8, hematocrit 30.7, platelets of 337. PT 12.1 and INR 1.06. Chemistry: Sodium 140, potassium 3.8, chloride 106, CO2 of 26, BUN 17, creatinine 1.0, blood sugar of 240. LFTs are within normal limits. CT of the chest is pending. ASSESSMENT: 1. Chronic obstructive pulmonary disease exacerbation. 2. Lung mass. 3. Human immunodeficiency virus positive. 4. Drq-gebwjtf-ekvnjflpp diabetes. PLAN: We will start him on nebulizer treatment, start him on IV steroids, start him on Rocephin, monitor his blood sugar. We will follow up this patient in a.m. Antonio Patel MD
[2018-03-24 16:03] VITALS: BP 130/70; PULSE 77; RESP 20; TEMP 98
[2018-03-24] MEDS ORDERED: Insulin Lispro (HUMAlog) HIGH Coverage SC SCH (16:30)
--- NOTE | 2018-03-24 17:14 | CP.PCM.PCO ---
Addendum Addendum: Chidi Simons PGY2 House Doc Paged regarding patient wanting to sign out AMA. Dr. Patel notified. Risks of leaving were explained to him give his hx of HIV and new chest nodule on CT scan. Patient insists on leaving despite explanation. Sign out AMA w/ nurse witnessing.
[2018-03-25] MEDS ORDERED: Pantoprazole 40 mg EC Tab PO SCH (06:30)
== END 2018-03-24 17:02 | disposition left against medical advice (07) ==
LOC: ED 21:16 → ERH 03-24 02:27 → UNDOADMOB 03-24 02:27 → INTOOBSV 03-24 13:19 → OBSVTOIN 03-24 13:19
DX: R07.9 Chest pain, unspecified (principal); I10 Essential (primary) hypertension; E11.40 Type 2 diabetes mellitus with diabetic neuropathy, unspecified; J44.9 Chronic obstructive pulmonary disease, unspecified; Z87.891 Personal history of nicotine dependence; Z21 Asymptomatic human immunodeficiency virus [HIV] infection status; Z79.899 Other long term (current) drug therapy
CPT/HCPCS: 71045; 71250; 80053; 82550; 82948; 83615; 83735; 83880; 84484; 85025; 85610; 85730; 93005; 96365; 96367; 96372; 99285; J0696; J1100; J2920; J7030

== ENCOUNTER 2018-03-26 23:21 | Inpatient (IN) | payer MEDICARE, MEDICAID ==
[2018-03-26 23:35] VITALS: BMI 25.1
[2018-03-26] MEDS ORDERED: Albuterol-Ipratrop 3 mg / 0.5 (3 ml) UD IH STA (23:47)
[2018-03-27 00:59] LABS: GRAN # 11.74 (1.4-6.5); GRAN % 92.4 % (50.0-68.0); HEMOGLOBIN 8.3 g/dL (14.0-18.0); LYMPH # 0.5 (1.2-3.4); LYMPH % 3.7 % (22.0-35.0); MEAN CELL VOLUME 80.2 fl (80.0-105.0); MEAN CORPUSCULAR HEMOGLOBIN 23.8 pg (25.0-35.0); MEAN CORPUSCULAR HGB CONC 29.6 g/dl (31.0-37.0); MEAN PLATELET VOLUME 9.8 fl (7.0-11.0); MONO # 0.5 (0.1-0.6); MONO % 3.9 % (1.0-6.0); PLATELET COUNT 430 10^3/uL (120.0-450.0); RBC 3.49 10^6/uL (3.5-6.1); RED CELL DISTRIBUTION WIDTH 17.7 % (11.5-14.5); WHITE BLOOD COUNT 12.7 10^3/uL (4.5-11.0)
--- NOTE | 2018-03-27 01:03 | ED PDOC ---
Arrival/HPI - General Chief Complaint: Shortness Of Breath Time Seen by Provider: 03/26/18 23:38 Historian: Patient - History of Present Illness Narrative History of Present Illness (Text): 03/27/18 01:03 63 y/o male with PMH of HIV, Hep C untreated, DM II, COPD, chronic pancreatitis, and HTN who presents to the ED c/o SOB x 3 days that worsened this afternoon. Associated substernal chest pressure and lightheadedness. Pt was seen here 3 days ago for similar complaints and signed out AMA. Pt is on 2L O2 NC at baseline. Denies fevers, chills, syncope, palpitations, diaphoresis, abdominal pain, N/V/D, weakness, numbness, paresthesias, urinary complaints, or any other associated symptoms. Past Medical History - Provider Review Nursing Documentation Reviewed: Yes - Infectious Disease Hx of Infectious Diseases: None - Tetanus Immunization Tetanus Immunization: Unknown - Cardiac Hx Hypertension: Yes - Pulmonary Hx Asthma: No (denies) Hx Sleep Apnea: Yes (occasional uses bipap) - Neurological Hx Seizures: No - HEENT Hx HEENT Disorder: Yes Hx Cataracts: Yes (right eye sx) - Renal Hx Renal Disorder: No - Endocrine/Metabolic Hx Diabetes Mellitus Type 1: Yes - Hematological/Oncological Hx Blood Disorders: Yes Hx Anemia: Yes (blood transfusion) Hx Hepatitis C: Yes - Integumentary Hx Dermatological Disorder: No - Musculoskeletal/Rheumatological Hx Arthritis: Yes - Gastrointestinal Hx Pancreatitis: Yes - Genitourinary/Gynecological Hx Sexually Transmitted Diseases: No - Psychiatric Hx Anxiety: Yes Hx Substance Use: Yes - Surgical History Hx Orthopedic Surgery: No - Anesthesia Hx Anesthesia: Yes Hx Anesthesia Reactions: No Hx Malignant Hyperthermia: No - Suicidal Assessment Feels Threatened In Home Enviroment: No Family/Social History - Physician Review Nursing Documentation Reviewed: Yes Family/Social History: No Known Family HX Smoking Status: Former Smoker Hx Alcohol Use: Yes Hx Substance Use: Yes Substance used: h/o heroine use Allergies/Home Meds Allergies/Adverse Reactions: Allergies No Known Allergies Allergy (Verified 03/23/18 21:58) Home Medications: Home Meds Medication Instructions Recorded Confirmed Aspirin [Ecotrin] 81 mg PO DAILY 03/24/18 03/24/18 Review of Systems - Physician Review All systems were reviewed & negative as marked: Yes - Review of Systems Constitutional: Normal Eyes: Normal. absent: Vision Changes ENT: Normal. absent: Sinus Congestion Respiratory: SOB, Cough, Sputum Cardiovascular: Chest Pain. absent: Palpitations, Syncope Gastrointestinal: Normal. absent: Abdominal Pain, Nausea, Vomiting Genitourinary Male: Normal. absent: Dysuria Musculoskeletal: Normal. absent: Back Pain Skin: Normal. absent: Rash Neurological: Normal. absent: Headache, Dizziness Endocrine: Normal Hemo/Lymphatic: Normal Psychiatric: Normal Physical Exam Vital Signs Reviewed: Yes Vital Signs Temp Pulse Resp BP Pulse Ox 03/27/18 01:22 99.4 F 92 H 18 110/65 100 03/27/18 00:41 20 100 Temperature: Afebrile Blood Pressure: Normal Pulse: Regular Respiratory Rate: Normal Appearance: Positive for: Well-Appearing, Non-Toxic, Unkept, Uncomfortable (SOB) Pain Distress: None Mental Status: Positive for: Alert and Oriented X 3 Finger Stick Blood Glucose: 166 - Systems Exam Head: Present: Atraumatic, Normocephalic Pupils: Present: PERRL Extroacular Muscles: Present: EOMI Conjunctiva: Present: Normal Ears: Present: Normal, NORMAL TM Mouth: Present: Moist Mucous Membranes Pharnyx: Present: Normal. No: ERYTHEMA, EXUDATE Nose (External): Present: Atraumatic Nose (Internal): Present: Normal Inspection Neck: Present: Normal Range of Motion. No: MIDLINE TENDERNESS, Paraspinal Tenderness Respiratory/Chest: Present: Wheezes (bilaterally), Decreased Breath Sounds, Rhonchi (bilaterally). No: Respiratory Distress, Accessory Muscle Use Cardiovascular: Present: Regular Rate and Rhythm, Normal S1, S2, Peripheal Pulses Present. No: Murmurs Abdomen: Present: Normal Bowel Sounds. No: Tenderness, Distention, Peritoneal Signs Back: Present: Normal Inspection. No: CVA Tenderness Upper Extremity: Present: Normal Inspection, Normal ROM, NORMAL PULSES, Capillary Refill < 2s. No: Cyanosis, Edema Lower Extremity: Present: Normal Inspection, NORMAL PULSES, Normal ROM, Capillary Refill < 2 s. No: Edema Neurological: Present: GCS=15, CN II-XII Intact, Speech Normal, Motor Func Grossly Intact, Normal Sensory Function, Gait Normal Skin: Present: Warm, Dry, Normal Color. No: Rashes Lymphatic: No: Cervical Adenopathy Psychiatric: Present: Alert, Oriented x 3, Normal Insight, Normal Concentration, Normal Affect, Normal Mood Medical Decision Making ED Course and Treatment: 23:45 Initial Plan: * Labs * CXR * EKG * Solumedrol * Duoneb * ASA * Reassess and Disposition Patient still with SOB and chest tightness after steroids. Lung examine has improved, however patient still with bilateral wheezing and intermittent rhonchi. Will admit for acute COPD exacerbation. 03:[address] Burgos who accepts patient for observation for COPD exacerbation. - Lab Interpretations Lab Results: Lab Results 03/27/18 00:51: POC Glucose (mg/dL) 166 H 03/27/18 00:41 03/27/18 02:35 Lab Results 03/27/18 02:35: Sodium 139, Potassium 4.2, Chloride 103, Carbon Dioxide 28, Anion Gap 12, BUN 22 H, Creatinine 1.0, Est GFR ( Amer) > 60, Est GFR (Non-Af Amer) > 60, Random Glucose 269 H, Calcium 9.4, Total Bilirubin 0.4, AST 33, ALT 26, Alkaline Phosphatase 89, Total Protein 6.8, Albumin 3.6, Globulin 3.1, Albumin/Globulin Ratio 1.2 03/27/18 01:15: Sodium 142, Potassium 5.8 H* D, Chloride 102, Carbon Dioxide 31, Anion Gap 15, BUN 22 H, Creatinine 0.8, Est GFR ( Amer) > 60, Est GFR (Non-Af Amer) > 60, Random Glucose 154 H, Calcium 9.2, Total Bilirubin 1.1, AST 60 H D, ALT 28, Alkaline Phosphatase 74, Lactate Dehydrogenase 1675 H, Total Creatine Kinase 127, Troponin I 0.01, Total Protein 8.2, Albumin 4.3, Globulin 3.9, Albumin/Globulin Ratio 1.1 03/27/18 00:51: POC Glucose (mg/dL) 166 H 03/27/18 00:41: WBC 12.7 H D, RBC 3.49 L, Hgb 8.3 L, Hct 28.0 L, MCV 80.2, MCH 23.8 L, MCHC 29.6 L, RDW 17.7 H, Plt Count 430, MPV 9.8, Gran % 92.4 H, Lymph % (Auto) 3.7 L, Woodward % (Auto) 3.9, Eos % (Auto) 0.0 L, Baso % (Auto) 0.0, Gran # 11.74 H, Lymph # (Auto) 0.5 L, Woodward # (Auto) 0.5, Eos # (Auto) 0.0, Baso # (Auto) 0.00, Neutrophils % (Manual) 92 H, Band Neutrophils % 2, Lymphocytes % (Manual) 3 L, Monocytes % (Manual) 3, Platelet Evaluation Normal, Hypochromasia 1+, Poikilocytosis (manual Slight, Ovalocytes 1+, Stomatocytes Slight, Rouleaux 1+, Schistocytes Slight I have reviewed the lab results: Yes - RAD Interpretation Narrative RAD Interpretations (Text): 03/27/18 03:42 CXR - Flattened diaphragm. No active disease Radiology Orders: 03/26/18 23:46 CHEST PORTABLE [RAD] Stat Director Of Player Personnel: ED Physician (Dr. Trammell) - EKG Interpretation EKG Interpretation (Text): 03/27/18 03:43 Rate 80; NSR; Normal intervals; No STEMI or ischemic changes. Interpreted by ED Physician: Yes Type: 12 lead EKG - Medication Orders Current Medication Orders: Discontinued Medications Albuterol/Ipratropium (Duoneb 3 Mg/0.5 Mg (3 Ml) Ud) 3 ml IH STAT STA Stop: 03/26/18 23:48 Last Admin: 03/27/18 00:40 Dose: 3 ml Aspirin (Aspirin) 325 mg PO STAT STA Stop: 03/27/18 00:45 Last Admin: 03/27/18 00:57 Dose: 325 mg Methylprednisolone (Solu-Medrol) 125 mg IVP STAT STA Stop: 03/26/18 23:48 Last Admin: 03/27/18 00:40 Dose: 125 mg IVP Administration Document 03/27/18 00:40 OCS (Rec: 03/27/18 00:40 [facility] [place] [facility] [place] Charges for Administration # of IVP Administrations 1 Disposition/Present on Arrival - Present on Arrival Any Indicators Present on Arrival: No History of DVT/PE: No History of Uncontrolled Diabetes: No Urinary Catheter: No History of Decub. Ulcer: No History Surgical Site Infection Following: None - Disposition Have Diagnosis and Disposition been Completed?: Yes Diagnosis: COPD exacerbation, Anemia Disposition: HOSPITALIZED Disposition Time: 02:30 Patient Plan: Admission Patient Problems: Current Active Problems Problem Status Onset Anemia Acute COPD exacerbation Acute Condition: STABLE
[2018-03-27 02:14] LABS: ALB/GLOB RATIO 1.1 (1.1-1.8); ALBUMIN 4.3 g/dL (3.0-4.8); ALT/SGPT 28 U/L (7-56); AST/SGOT 60 U/L (17-59); BLOOD UREA NITROGEN 22 mg/dL (7-21); CALCIUM 9.2 mg/dL (8.4-10.5); GFR NON-AFRICAN AMERICAN > 60; TROPONIN I 0.01 ng/mL
[2018-03-27 02:56] LABS: BAND 2 % (0-2); LYMPHOCYTE 3 % (22.0-35.0); MONOCYTE 3 % (1.0-6.0); NEUTROPHIL 92 % (50.0-70.0); PLATELET ESTIMATE NORMAL (NORMAL); POIKILOCYTOSIS SLIGHT
[2018-03-27 02:57] LABS: HYPOCHROMIA 1+; OVALOCYTES 1+; ROULEAU 1+; SCHISTOCYTES SLIGHT; STOMATOCYTE SLIGHT
[2018-03-27] MEDS ORDERED: Insulin Regular 1 UNITS/0.01 ML ML SC STA (03:16)
[2018-03-27] MEDS ORDERED: Dextrose 50% SYRINGE Inj (50 ml) IVP STA (03:16)
[2018-03-27] MEDS ORDERED: Sod Polystyrene Sulf 15 gm/60 ml Susp PO STA (03:16)
[2018-03-27 03:34] LABS: ALB/GLOB RATIO 1.2 (1.1-1.8); ALBUMIN 3.6 g/dL (3.0-4.8); ALT/SGPT 26 U/L (7-56); AST/SGOT 33 U/L (17-59); BLOOD UREA NITROGEN 22 mg/dL (7-21); CALCIUM 9.4 mg/dL (8.4-10.5); GFR NON-AFRICAN AMERICAN > 60
[2018-03-27] MEDS ORDERED: Albuterol-Ipratrop 3 mg / 0.5 (3 ml) UD IH PRN (04:22)
--- NOTE | 2018-03-27 04:35 | CP.PCM.HP ---
<Kyung Mendez - Last Filed: 03/27/18 06:47> History of Present Illness - History of Present Illness History of Present Illness: Kyung Mendez, PGY1 Hospital H&P This is a 63 year old male with PMH of HIV with last CD4 of 87 on 02/13/2018 on HAART therapy, COPD on 2L home oxygen, HTN, DM, untreated hepatitis C, and chronic pancreatitis presenting to the ED for SOB that worsened yesterday. Patient says SOB began one week ago and was admitted to the hospital a few days ago but left AMA the next day. He was also admitted to [facility] last month for similar complaints and left AMA as well. He states that his SOB over the last week has worsened since previous admission and is associated with nausea, chest tightness and constipation. Of note, patient refused lung biopsy of lung nodule found on CT scan recently. He states he is compliant with all his medications. He denies CP, fevers, chills, vomiting, hematemesis, back pain, abdominal pain, diarrhea, hematochezia, numbness, tingling, swelling, recent travel, sickness, sick contacts, trauma and lifestyle change. 12 point ROS noted here, otherwise unremarkable. PMD: denies PMD at this time Pharmacy: cannot remember pharmacy name Meds: amlodipine 5mg daily, valsartan 150mg daily, spirinolactone 25mg daily, singulaire, neurontin 300mg TID, lasix 20mg daily, famotidine, xanax prn, abacavir, raltegravir PMH: HIV on HAART therapy, COPD on 2L home oxygen, HTN, DM, untreated hepatitis C, and chronic pancreatitis SH: former tobacco, alcohol and drug user Sx: denies All: NKDA FH: denies Present on Admission - Present on Admission Any Indicators Present on Admission: No Past Patient History - Infectious Disease Hx of Infectious Diseases: None - Tetanus Immunizations Tetanus Immunization: Unknown - Past Medical History & Family History Past Medical History?: Yes - Past Social History Smoking Status: Former Smoker - CARDIAC Hx Hypertension: Yes - PULMONARY Hx Asthma: No (denies) Hx Sleep Apnea: Yes (occasional uses bipap) - NEUROLOGICAL Hx Seizures: No - HEENT Hx HEENT Problems: Yes Hx Cataracts: Yes (right eye sx) - RENAL Hx Chronic Kidney Disease: No - ENDOCRINE/METABOLIC Hx Diabetes Mellitus Type 1: Yes - HEMATOLOGICAL/ONCOLOGICAL Hx Blood Disorders: Yes Hx Anemia: Yes (blood transfusion) Hx Hepatitis C: Yes - INTEGUMENTARY Hx Dermatological Problems: No - MUSCULOSKELETAL/RHEUMATOLOGICAL Hx Arthritis: Yes - GASTROINTESTINAL Hx Pancreatitis: Yes - GENITOURINARY/GYNECOLOGICAL Hx Sexually Transmitted Disorders: No - PSYCHIATRIC Hx Anxiety: Yes Hx Substance Use: Yes - SURGICAL HISTORY Hx Orthopedic Surgery: No - ANESTHESIA Hx Anesthesia: Yes Hx Anesthesia Reactions: No Hx Malignant Hyperthermia: No Meds Allergies/Adverse Reactions: Allergies Allergy/AdvReac Type Severity Reaction Status Date / Time No Known Allergies Allergy Verified 03/23/18 21:58 Physical Exam - Constitutional Appears: No Acute Distress Additional comments: altered - Head Exam Head Exam: ATRAUMATIC, NORMAL INSPECTION - Eye Exam Eye Exam: EOMI Pupil Exam: PERRL - ENT Exam ENT Exam: Mucous Membranes Moist - Respiratory Exam Respiratory Exam: absent: Accessory Muscle Use, Respiratory Distress Additional comments: diffuse expiratory wheezing appreciated in all lung mireles - Cardiovascular Exam Cardiovascular Exam: REGULAR RHYTHM, +S1, +S2 - GI/Abdominal Exam GI & Abdominal Exam: Normal Bowel Sounds, Soft. absent: Firm, Guarding, Ten derness - Extremities Exam Extremities exam: Positive for: normal inspection, pedal pulses present. Negative for: calf tenderness - Back Exam Back exam: NORMAL INSPECTION - Neurological Exam Neurological exam: Alert, Altered, Oriented x3 - Skin Skin Exam: Normal Color, Warm Results - Vital Signs Recent Vital Signs: Last Vital Signs Temp 99.4 F 03/27/18 01:22 Pulse 92 H 03/27/18 01:22 Resp 18 03/27/18 01:22 BP 110/65 03/27/18 01:22 Pulse Ox 100 03/27/18 01:22 - Labs Result Diagrams: 03/27/18 00:41 03/27/18 02:35 Labs: Laboratory Results - last 24 hr 03/27/18 03/27/18 03/27/18 00:41 00:51 01:15 WBC 12.7 H D RBC 3.49 L Hgb 8.3 L Hct 28.0 L MCV 80.2 MCH 23.8 L MCHC 29.6 L RDW 17.7 H Plt Count 430 MPV 9.8 Gran % 92.4 H Lymph % (Auto) 3.7 L [place] % (Auto) 3.9 Eos % (Auto) 0.0 L Baso % (Auto) 0.0 Gran # 11.74 H Lymph # (Auto) 0.5 L [place] # (Auto) 0.5 Eos # (Auto) 0.0 Baso # (Auto) 0.00 Neutrophils % (Manual) 92 H Band Neutrophils % 2 Lymphocytes % (Manual) 3 L Monocytes % (Manual) 3 Platelet Evaluation Normal Hypochromasia 1+ Poikilocytosis (manual Slight Ovalocytes 1+ Stomatocytes Slight Rouleaux 1+ Schistocytes Slight Sodium 142 Potassium 5.8 H* D Chloride 102 Carbon Dioxide 31 Anion Gap 15 BUN 22 H Creatinine 0.8 Est GFR ( Amer) > 60 Est GFR (Non-Af Amer) > 60 POC Glucose (mg/dL) 166 H Random Glucose 154 H Calcium 9.2 Total Bilirubin 1.1 AST 60 H D ALT 28 Alkaline Phosphatase 74 Lactate Dehydrogenase 1675 H Total Creatine Kinase 127 Troponin I 0.01 Total Protein 8.2 Albumin 4.3 Globulin 3.9 Albumin/Globulin Ratio 1.1 03/27/18 02:35 WBC RBC Hgb Hct MCV MCH MCHC RDW Plt Count MPV Gran % Lymph % (Auto) [place] % (Auto) Eos % (Auto) Baso % (Auto) Gran # Lymph # (Auto) [place] # (Auto) Eos # (Auto) Baso # (Auto) Neutrophils % (Manual) Band Neutrophils % Lymphocytes % (Manual) Monocytes % (Manual) Platelet Evaluation Hypochromasia Poikilocytosis (manual Ovalocytes Stomatocytes Rouleaux Schistocytes Sodium 139 Potassium 4.2 Chloride 103 Carbon Dioxide 28 Anion Gap 12 BUN 22 H Creatinine 1.0 Est GFR ( Amer) > 60 Est GFR (Non-Af Amer) > 60 POC Glucose (mg/dL) Random Glucose 269 H Calcium 9.4 Total Bilirubin 0.4 AST 33 ALT 26 Alkaline Phosphatase 89 Lactate Dehydrogenase Total Creatine Kinase Troponin I Total Protein 6.8 Albumin 3.6 Globulin 3.1 Albumin/Globulin Ratio 1.2 Assessment & Plan - Assessment and Plan (Free Text) Assessment: This is a 63 year old male with PMH of HIV with last CD4 of 87 on 02/13/2018 on HAART therapy, COPD on 2L home oxygen, HTN, DM, untreated hepatitis C, and chronic pancreatitis presenting to the ED for SOB that worsened yesterday. Plan: SOB -likely 2/2 COPD exacerbation vs infection with hx of HIV vs lung mass on recent CT -solumderol 60mg IV q8 -duonebs prn and deep -ABG pending -CXR did not show any acute process, f/u official read -azithromycin day 1 -pulmicort, singulaire -elevated WBC, afebrile -blood, sputum, throat cultures and gram stain pending -histoplasma AB, legionella urine pending -ID on consult, Dr. Tracy Lung mass -CT chest on 03/24/19 revealed 9x20mm irregular nodule in RUL suspicious for malignancy, unchanged from previous CT chest one month ago. Biopsy recommended -patient refused biopsy on last visit -consider patient education, revisit biopsy decision Hx of HIV -continue home HAART -last CD4 in 02/13/2018 is 87 -ID on consult, Dr. Tracy Anemia -borderline normocytic, currently at baseline Hg -consider hemoconcentration, consistent with dehydration picture with elevated BUN -NS 50cc -iron studies pending Constipation -colace, miralax Hx of DM -insulin ACHS Hx of HTN -continue home lasix, amlodipine, valsartan, spirinolactone Hx of chronic pancreatitis -continue pancreatic enzymes Hx of anxiety -continue home xanax prn PPX with protonix and lovenox Regular diet - patient adamant about receiving regular diet with histor of baut[facility] EUBAN[facility] Patient seen and case discussed with attending, Dr. Burgos <Edwige Burgos - Last Filed: 03/27/18 19:06> Results - Vital Signs Recent Vital Signs: Last Vital Signs Temp 98 F 03/27/18 08:00 Pulse 87 03/27/18 17:45 Resp 18 03/27/18 17:45 BP 119/67 03/27/18 17:45 Pulse Ox 97 03/27/18 17:45 - Labs Result Diagrams: 03/27/18 00:41 03/27/18 02:35 Labs: Laboratory Results - last 24 hr 03/27/18 03/27/18 03/27/18 00:41 00:51 01:15 WBC 12.7 H D RBC 3.49 L Hgb 8.3 L Hct 28.0 L MCV 80.2 MCH 23.8 L MCHC 29.6 L RDW 17.7 H Plt Count 430 MPV 9.8 Gran % 92.4 H Lymph % (Auto) 3.7 L [place] % (Auto) 3.9 Eos % (Auto) 0.0 L Baso % (Auto) 0.0 Gran # 11.74 H Lymph # (Auto) 0.5 L [place] # (Auto) 0.5 Eos # (Auto) 0.0 Baso # (Auto) 0.00 Neutrophils % (Manual) 92 H Band Neutrophils % 2 Lymphocytes % (Manual) 3 L Monocytes % (Manual) 3 Platelet Evaluation Normal Hypochromasia 1+ Poikilocytosis (manual Slight Ovalocytes 1+ Stomatocytes Slight Rouleaux 1+ Schistocytes Slight pCO2 pO2 HCO3 ABG pH ABG Total CO2 ABG O2 Saturation ABG O2 Content ABG Base Excess ABG Hemoglobin ABG Carboxyhemoglobin POC ABG HHb (Measured) ABG Methemoglobin ABG O2 Capacity Hgb O2 Saturation FiO2 Sodium 142 Potassium 5.8 H* D Chloride 102 Carbon Dioxide 31 Anion Gap 15 BUN 22 H Creatinine 0.8 Est GFR ( Amer) > 60 Est GFR (Non-Af Amer) > 60 POC Glucose (mg/dL) 166 H Random Glucose 154 H Calcium 9.2 Phosphorus Magnesium Total Bilirubin 1.1 AST 60 H D ALT 28 Alkaline Phosphatase 74 Lactate Dehydrogenase 1675 H Total Creatine Kinase 127 Troponin I 0.01 Total Protein 8.2 Albumin 4.3 Globulin 3.9 Albumin/Globulin Ratio 1.1 03/27/18 03/27/18 03/27/18 02:35 02:35 06:50 WBC RBC Hgb Hct MCV MCH MCHC RDW Plt Count MPV Gran % Lymph % (Auto) [place] % (Auto) Eos % (Auto) Baso % (Auto) Gran # Lymph # (Auto) [place] # (Auto) Eos # (Auto) Baso # (Auto) Neutrophils % (Manual) Band Neutrophils % Lymphocytes % (Manual) Monocytes % (Manual) Platelet Evaluation Hypochromasia Poikilocytosis (manual Ovalocytes Stomatocytes Rouleaux Schistocytes pCO2 45 pO2 110.0 H HCO3 30.6 H ABG pH 7.44 ABG Total CO2 32.0 H ABG O2 Saturation 100.3 H ABG O2 Content 10.3 L ABG Base Excess 5.9 H ABG Hemoglobin 7.4 L ABG Carboxyhemoglobin 2.2 H POC ABG HHb (Measured) -0.3 L ABG Methemoglobin 0.8 ABG O2 Capacity 10.3 L Hgb O2 Saturation 97.2 FiO2 21.0 Sodium 139 Potassium 4.2 Chloride 103 Carbon Dioxide 28 Anion Gap 12 BUN 22 H Creatinine 1.0 Est GFR ( Amer) > 60 Est GFR (Non-Af Amer) > 60 POC Glucose (mg/dL) Random Glucose 269 H Calcium 9.4 Phosphorus 3.4 Magnesium 2.1 Total Bilirubin 0.4 AST 33 ALT 26 Alkaline Phosphatase 89 Lactate Dehydrogenase Total Creatine Kinase Troponin I Total Protein 6.8 Albumin 3.6 Globulin 3.1 Albumin/Globulin Ratio 1.2 03/27/18 03/27/18 03/27/18 07:54 11:37 16:31 WBC RBC Hgb Hct MCV MCH MCHC RDW Plt Count MPV Gran % Lymph % (Auto) [place] % (Auto) Eos % (Auto) Baso % (Auto) Gran # Lymph # (Auto) [place] # (Auto) Eos # (Auto) Baso # (Auto) Neutrophils % (Manual) Band Neutrophils % Lymphocytes % (Manual) Monocytes % (Manual) Platelet Evaluation Hypochromasia Poikilocytosis (manual Ovalocytes Stomatocytes Rouleaux Schistocytes pCO2 pO2 HCO3 ABG pH ABG Total CO2 ABG O2 Saturation ABG O2 Content ABG Base Excess ABG Hemoglobin ABG Carboxyhemoglobin POC ABG HHb (Measured) ABG Methemoglobin ABG O2 Capacity Hgb O2 Saturation FiO2 Sodium Potassium Chloride Carbon Dioxide Anion Gap BUN Creatinine Est GFR ( Amer) Est GFR (Non-Af Amer) POC Glucose (mg/dL) 323 H 256 H 429 H* Random Glucose Calcium Phosphorus Magnesium Total Bilirubin AST ALT Alkaline Phosphatase Lactate Dehydrogenase Total Creatine Kinase Troponin I Total Protein Albumin Globulin Albumin/Globulin Ratio Attending/Attestation - Attestation I have personally seen and examined this patient.: Yes I have fully participated in the care of the patient.: Yes I have reviewed all pertinent clinical information: Yes
[2018-03-27] MEDS ORDERED: Dextrose 50% SYRINGE Inj (50 ml) IV PRN (05:05)
[2018-03-27] MEDS: MethylPREDNISolone 40 mg Vial IVP SCH ×2 (06:53→13:48)
[2018-03-27 06:59] LABS: ARTERIAL BLOOD GAS HCO3 30.6 mmol/L (21-28); ARTERIAL BLOOD GAS HEMOGLOBIN 7.4 g/dL (11.7-17.4); ARTERIAL BLOOD GAS O2 CAPACITY 10.3 mL/dl (16-24); ARTERIAL BLOOD GAS O2 CONTENT 10.3 ML/dl (15-23); ARTERIAL BLOOD GAS O2 SAT 100.3 % (95-98); ARTERIAL BLOOD GAS PCO2 45 mm/Hg (35-45); ARTERIAL BLOOD GAS PH 7.44 (7.35-7.45)
[2018-03-27] MEDS: Sodium Chloride 0.9% 1,000 ML IV SCH (07:52)
[2018-03-27] MEDS ORDERED: Arformoterol 15 mcg/2 ml Inh Sol IH SCH (08:00)
--- NOTE | 2018-03-27 08:03 | RAD ---
Date of service: 03/26/2018 HISTORY: SOB COMPARISON: 03/23/2018 FINDINGS: LUNGS: No active pulmonary disease. PLEURA: No significant pleural effusion identified, no pneumothorax apparent. CARDIOVASCULAR: No aortic atherosclerotic calcification present. Normal cardiac size. No pulmonary vascular congestion. OSSEOUS STRUCTURES: No significant abnormalities. VISUALIZED UPPER ABDOMEN: Normal. OTHER FINDINGS: None. IMPRESSION: No active disease.
[2018-03-27] MEDS: Albuterol-Ipratrop 3 mg / 0.5 (3 ml) UD IH SCH ×3 (08:12→15:34)
[2018-03-27] MEDS: Insulin Reg-MEDIUM-Coverage SC SCH ×4 (08:12→22:56)
[2018-03-27] MEDS ORDERED: Insulin Regular 1 UNITS/0.01 ML ML ONE ×3 (08:14→22:58)
[2018-03-27] MEDS: Budesonide 0.5 mg/2 ml Inhal Susp UD IH SCH (09:08)
--- NOTE | 2018-03-27 09:54 | CARD ---
APPROVED REPORT Date of service: 03/27/2018 EKG Measurement Heart [id number] <Conclusion> Normal sinus rhythm Normal ECG
[2018-03-27] MEDS ORDERED: POLYETHYLENE GLYCOL 3350 17 GM/Dose PACKET PO SCH (10:00)
[2018-03-27] MEDS ORDERED: PROTEASE PO SCH (10:00)
[2018-03-27] MEDS ORDERED: LIPASE PO SCH (10:00)
[2018-03-27] MEDS ORDERED: AMYLASE PO SCH (10:00)
[2018-03-27] MEDS ORDERED: Amylase/Lipase/Protease 5,000 Units ECC PO SCH (10:00)
[2018-03-27] MEDS ORDERED: RALTEGRAVIR POTASSIUM 600 MG PO SCH ×2 (10:00)
[2018-03-27] MEDS: Azithromycin 500MG/NS 250ml 500 MG/250 ML BAG IVPB SCH (10:28)
[2018-03-27] MEDS: AMYLASE PO SCH ×3 (10:31→18:00)
[2018-03-27] MEDS: LIPASE PO SCH ×3 (10:31→18:00)
[2018-03-27] MEDS: PROTEASE PO SCH ×3 (10:31→18:00)
[2018-03-27] MEDS: POLYETHYLENE GLYCOL 3350 17 GM/Dose PACKET PO SCH (10:32)
[2018-03-27] MEDS: Enoxaparin 40 mg Syringe SC SCH ×2 (11:42→11:46)
--- NOTE | 2018-03-27 13:36 | CT ---
Date of service: 03/27/2018 PROCEDURE: CT Chest without contrast HISTORY: r/o infiltrate COMPARISON: 03/24/2018 TECHNIQUE: Contiguous axial images were obtained through the chest without intravenous contrast enhancement. Sagittal and coronal reconstructions were performed. Radiation dose: Total exam DLP = 255.3 mGy-cm. This CT exam was performed using one or more of the following dose reduction techniques: Automated exposure control, adjustment of the mA and/or kV according to patient size, and/or use of iterative reconstruction technique. FINDINGS: LUNGS: There are no infiltrates seen. No change in appearance of nodule in the right upper lobe measuring 9 x 19 mm MEDIASTINUM: Unremarkable thoracic aorta. No aneurysm. Normal sized heart. Main pulmonary artery unremarkable. No vascular congestion. No lymphadenopathy. Aortic calcification PLEURA: No pleural fluid. No pneumothorax. BONES: No fracture. No destructive lesion. UPPER ABDOMEN: Grossly unremarkable. OTHER FINDINGS: None. IMPRESSION: There are no infiltrates seen. No change in appearance of nodule in the right upper lobe measuring 9 x 19 mm
[2018-03-27] MEDS: Sulfamethoxazole/Trimethoprim 240 MG in Dextrose 5% In Water 250 ML IVPB SCH ×2 (13:44→21:18)
[2018-03-27] MEDS: RALTEGRAVIR POTASSIUM 600 MG PO SCH (17:59)
--- NOTE | 2018-03-27 23:27 | CON ---
DATE OF CONSULTATION: 03/27/2018 The patient is seen in the emergency room earlier this morning. CHIEF COMPLAINT: Shortness of breath times several days. HISTORY OF PRESENT ILLNESS: This is a 63-year-old -Portuguese male with a history of positive HIV and end-stage AIDS, hepatitis C, end-stage chronic obstructive lung disease, on home O2 therapy, hypertension, and diabetes mellitus, who was admitted through emergency room. In the emergency room, the patient was found to have shortness of breath associated with chest pressure and lightheadedness. PAST MEDICAL HISTORY: Significant for HIV and AIDS, sleep apnea, end-stage COPD, on home O2 therapy, chronic respiratory failure, right upper lobe mass, hypertension, diabetes, pancreatitis, polysubstance abuse, and hepatitis C. PAST SURGICAL HISTORY: Significant for the patient having jaw surgery many years ago. SOCIAL HISTORY: He has no travel history. MEDICATIONS AT HOME: Include the patient to be on his HIV medications. He is on Isentress, which is raltegravir, and abacavir, which is Ziagen. The patient states that he goes to [facility] for his HIV care; however, he has missed his appointments on numerous occasions. ALLERGIES: THE PATIENT DOES NOT HAVE ANY ALLERGIES. REVIEW OF SYSTEMS: There are no fevers, no chills. No abdominal pain, diarrhea or constipation. No bright red blood per rectum. No melena. No headaches and blurred vision. No neck pain. No sore throat. No dysuria or frequency. PHYSICAL EXAMINATION: GENERAL: He is in bed in no acute distress, appearing chronically ill. VITAL SIGNS: Temperature of 99.4; respiratory rate of 17, it was up to 20; blood pressure is 120/60; heart rate of 65, it was up to 92. HEENT: Unremarkable. NECK: Supple. LUNGS: Decreased breath sounds. HEART: Normal S1, S2. ABDOMEN: Soft, nontender. LABORATORY EXAMINATION: Reveals the patient's white count of 12,700, hemoglobin of 8, platelets of 430,000 with 92% granulocytosis. The chemistries reveal a BUN of 22, creatinine of 0.8. LDH is 1675. Microbiology is pending. Microbiology in the past, his blood cultures have been negative. He has had urine culture, which is positive for yeast. He has had sputum cultures in the past in 2017, which is positive for yeast, and another sputum culture from 2014 is positive for yeast. He also had Salmonella bacteremia in 2015, which was group B salmonella. Radiologically, the patient has a chest x-ray, which is reported to be negative, and the EKG. Review of previous HIV studies reveal the patient's HIV was undetectable in 10/2017. Percentage T-cells was at 30% in 01/2018. CD4 count absolute number was 87 in 11/2017. Cryptococcus also was negative in the past. Histoplasma was negative. Hepatitis C was reactive. ASSESSMENT AND PLAN: This is a 63-year-old male with systemic inflammatory response syndrome and end-stage acquired immunodeficiency syndrome by absolute CD4 count of 87; however, the percentage is at 30%, presenting with shortness of breath. Urine for Legionella has been ordered. Procalcitonin is ordered. Blood cultures, sputum cultures and throat cultures were also ordered and a MRSA screen. We will start the patient on Bactrim. Although with the percentage of 30% less likely, however, with an 87 CD4 count and concern with an elevated LDH, we will order a CAT scan of the chest and must rule out PCP versus bacterial pneumonia. The patient was started by Dr. Ronnie Lee on IV azithromycin, Solu-Medrol, HIV medications, pending workup. We will also start Bactrim at 240 mg every 8 hours. We will order a Fungitell and CAT scan of the chest. We will make further recommendations upon availability of the initial results. Overall prognosis is quite poor for this patient. Elvis Matias MD
[2018-03-28] MEDS: MethylPREDNISolone 40 mg Vial IVP SCH ×4 (06:21→21:44)
[2018-03-28] MEDS: Albuterol-Ipratrop 3 mg / 0.5 (3 ml) UD IH SCH ×5 (06:41→20:56)
[2018-03-28] MEDS: Sulfamethoxazole/Trimethoprim 240 MG in Dextrose 5% In Water 250 ML IVPB SCH (06:43)
[2018-03-28] MEDS ORDERED: Insulin Regular 1 UNITS/0.01 ML ML ONE ×2 (08:32→08:45)
[2018-03-28] MEDS: Insulin Lispro 1 UNITS/0.01 ML SC SCH ×3 (08:33→16:52)
[2018-03-28] MEDS: Insulin Reg-MEDIUM-Coverage SC SCH ×3 (08:36→16:51)
[2018-03-28] MEDS: Budesonide 0.5 mg/2 ml Inhal Susp UD IH SCH ×2 (09:02→20:56)
[2018-03-28] MEDS: Enoxaparin 40 mg Syringe SC SCH (09:14)
[2018-03-28] MEDS: Azithromycin 500MG/NS 250ml 500 MG/250 ML BAG IVPB SCH (09:15)
[2018-03-28] MEDS: RALTEGRAVIR POTASSIUM 600 MG PO SCH ×2 (09:16→17:07)
[2018-03-28] MEDS: LIPASE PO SCH ×3 (09:17→17:06)
[2018-03-28] MEDS: AMYLASE PO SCH ×3 (09:17→17:06)
[2018-03-28] MEDS: PROTEASE PO SCH ×3 (09:17→17:06)
[2018-03-28] MEDS ORDERED: guaiFENesin DM 100 mg-10 mg/5 ml UD PO PRN (13:20)
--- NOTE | 2018-03-28 17:13 | PN ---
DATE: 03/28/2018 SUBJECTIVE: The patient is in bed, in no acute distress, nontoxic. PHYSICAL EXAMINATION VITAL SIGNS: Temperature is 97, blood pressure is 100/60, respiratory rate of 18. HEENT: Unremarkable. NECK: Supple. LUNGS: Decreased breath sounds. HEART: Normal S1, S2. ABDOMEN: Soft, nontender. LABORATORY DATA: Reveals the white count of 12,700, hemoglobin of 8, platelets of 430. Chemistry reveals the patient's BUN of 22, creatinine of 1.0. The patient does have an elevated LDH of 1675. Microbiology is pending. DIAGNOSTIC DATA: Radiology revealed the CAT scan of the chest, no infiltrate seen. No change in appearance of a nodule in the right upper lobe measuring 9 x 19 and cultures are pending. It appears that no interstitial infiltrates on CAT scan of the chest except for what has already been described. ASSESSMENT AND PLAN: A 63-year-old male, known to me from previous admissions with positive human Immunodeficiency virus and end-stage acquired immunodeficiency syndrome, hepatitis C, end-stage chronic obstructive lung disease, on home O2 therapy, hypertension, diabetes, was admitted to the emergency room with shortness of breath, lightheadedness, chest pressures, and with systemic inflammatory response syndrome with an elevated LDH. Negative CAT scan of the chest, although the CD4 count is 87 absolute count and the percentage is 30%, I doubt pneumocystis carinii pneumonia and we will check on the blood cultures, urine for Legionella antigen, and sputum cultures. Blood cultures were ordered, but was canceled by . We will continue the present course at this time. Most likely, we will discontinue the antibiotics within the next 24 hours. Pending initial workup appears this is most consistent with end-stage chronic obstructive pulmonary disease exacerbation and negative infiltrate. We will discontinue the intravenous Zithromax and intravenous Bactrim and place the patient on oral Zithromax because of the chronic obstructive pulmonary disease. Blood cultures were canceled by . Elvis Matias MD
[2018-03-28] MEDS: POLYETHYLENE GLYCOL 3350 17 GM/Dose PACKET PO SCH (19:59)
[2018-03-28] MEDS: guaiFENesin-DM 600-30 mg ER Tab PO SCH (19:59)
[2018-03-28] MEDS: Sodium Chloride 0.9% 1,000 ML IV SCH (21:21)
[2018-03-28] MEDS: Insulin Detemir 100 units/ml Vial (Levemir) SC SCH (21:44)
--- NOTE | 2018-03-28 23:10 | CP.PCM.PN ---
<Deepthi Loera - Last Filed: 03/28/18 23:05> Subjective - Date & Time of Evaluation Date of Evaluation: 03/28/18 Time of Evaluation: 12:15 - Subjective Subjective: Deepthi Loera PGY-1, Medicine Progress Note for Dr. Shama Leyva: Pt was seen and examined this AM at bedside. He states that he is breathing better, and he denies having any chest tightness. He continues to admit to cough but states that the cough is the same as yesterday. He states that he is able to tolerate his diet and that he is moving his bowel and passing his urine without issue. Objective - Vital Signs/Intake and Output Vital Signs (last 24 hours): Temp Pulse Resp BP Pulse Ox 98.8 F 82 20 105/71 98 03/28/18 22:00 03/28/18 22:00 03/28/18 22:00 03/28/18 22:00 03/28/18 22:00 - Medications Medications: Current Medications Abacavir Sulfate (Ziagen) 300 mg PO BID [facility]; Protocol Last Admin: 03/28/18 17:06 Dose: 300 mg Acetaminophen (Tylenol 325mg Tab) 650 mg PO Q6H PRN PRN Reason: Pain, Mild (1-3) Last Admin: 03/27/18 18:17 Dose: 650 mg Albuterol/Ipratropium (Duoneb 3 Mg/0.5 Mg (3 Ml) Ud) 3 ml IH [id number] [facility] Last Admin: 03/28/18 20:56 Dose: Not Given Albuterol/Ipratropium (Duoneb 3 Mg/0.5 Mg (3 Ml) Ud) 3 ml IH Q2H PRN PRN Reason: Shortness of Breath Alprazolam (Xanax) 0.25 mg PO TID PRN; Protocol PRN Reason: Anxiety Stop: 04/03/18 04:56 Last Admin: 03/28/18 18:44 Dose: 0.25 mg Amlodipine Besylate (Norvasc) 5 mg PO DAILY [facility] Last Admin: 03/28/18 09:12 Dose: 5 mg Aspirin (Ecotrin) 81 mg PO DAILY [facility] Last Admin: 03/28/18 09:13 Dose: 81 mg Azithromycin (Zithromax) 250 mg PO DAILY [facility]; Protocol Stop: 04/07/18 10:01 Budesonide (Pulmicort Respules) 0.5 mg IH [id number] [facility] Last Admin: 03/28/18 20:56 Dose: Not Given Dextrose (Dextrose 50% Inj) 0 ml IV STAT PRN; Protocol PRN Reason: Hypoglycemia Protocol Docusate Sodium (Colace) 100 mg PO DAILY [facility] Last Admin: 03/28/18 09:13 Dose: 100 mg Enoxaparin Sodium (Lovenox) 40 mg SC DAILY [facility]; Protocol Last Admin: 03/28/18 09:14 Dose: 40 mg Furosemide (Lasix) 20 mg PO DAILY [facility] Last Admin: 03/28/18 09:13 Dose: 20 mg Gabapentin (Neurontin) 300 mg PO TID [facility]; Protocol Last Admin: 03/28/18 17:05 Dose: 300 mg Guaifenesin/Dextromethorphan (Robitussin Dm) 5 ml PO Q4H PRN PRN Reason: Cough Guaifenesin/Dextromethorphan (Mucinex-Dm 600-30 Mg) 1 tab PO BID [facility] Last Admin: 03/28/18 19:59 Dose: Not Given Dextrose (Dextrose 5% In Water 1000 Ml) 1,000 mls @ 0 mls/hr IV .Q0M PRN; Protocol PRN Reason: Hypoglycemia Protocol Sodium Chloride (Sodium Chloride 0.9%) 1,000 mls @ 50 mls/hr IV .Q20H [facility] Last Admin: 03/28/18 21:21 Dose: Not Given Insulin Detemir (Levemir) 5 unit SC HS [facility] Last Admin: 03/28/18 21:44 Dose: 5 unit Insulin Human Lispro (Humalog) 4 units SC AC [facility] Last Admin: 03/28/18 16:52 Dose: 4 units Insulin Human Regular (Humulin R Med) 0 units SC ACHS [facility]; Protocol Last Admin: 03/28/18 16:51 Dose: 8 units Losartan Potassium (Cozaar) 25 mg PO DAILY [facility] Last Admin: 03/28/18 19:59 Dose: Not Given Methylprednisolone (Solu-Medrol) 40 mg IVP Q8 [facility] Last Admin: 03/28/18 21:44 Dose: 40 mg Montelukast Sodium (Singulair) 10 mg PO HS [facility] Last Admin: 03/28/18 21:44 Dose: 10 mg Lipase/Protease/Amylase [[place] 12 ,000 Units Capsule] (Home Med) 1 each PO TID [facility] Last Admin: 03/28/18 17:06 Dose: 1 each Raltegravir Potassium [Isentress Hd] 600 Mg (Home Med) 600 mg PO BID [facility] Last Admin: 03/28/18 17:07 Dose: 600 mg Pantoprazole Sodium (Protonix Inj) 40 mg IVP DAILY [facility] Last Admin: 03/28/18 09:13 Dose: 40 mg Polyethylene Glycol (Miralax) 17 gm PO DAILY [facility] Last Admin: 03/28/18 19:59 Dose: Not Given Spironolactone (Aldactone) 25 mg PO DAILY [facility] Last Admin: 03/28/18 09:22 Dose: 25 mg - Labs Labs: 03/27/18 00:41 03/27/18 02:35 - Constitutional Appears: Well, Non-toxic, No Acute Distress Assessment and Plan - Assessment and Plan (Free Text) Assessment: This is a 63 year old male with PMH of HIV with last CD4 of 87 on 02/13/2018 on HAART therapy, COPD on 2L home oxygen, HTN, DM, untreated hepatitis C, and chronic pancreatitis presenting to the ED for SOB that worsened the day before admission. Plan: 1. SOB -likely 2/2 COPD exacerbation -solumderol 40mg IV q8 -duonebs prn and deep -CXR did not show any acute process -azithromycin day 2 -pulmicort, singulair -elevated WBC, afebrile -blood, sputum, throat cultures and gram stain pending -histoplasma AB, legionella urine pending -ID on consult, Dr. Tracy 2. Lung mass -CT chest on 03/24/19 revealed 9x20mm irregular nodule in RUL suspicious for malignancy, unchanged from previous CT chest one month ago. Biopsy recommended -patient refused biopsy on this visit -consider patient education, revisit biopsy decision 3. Hx of HIV -continue home HAART -last CD4 in 02/13/2018 is 87 -ID on consult, Dr. Tracy 4. Anemia -borderline normocytic, currently at baseline Hg -consider hemoconcentration, consistent with dehydration picture with elevated BUN -NS 50cc -iron studies pending 5. Constipation -colace, miralax 6. Hx of DM -insulin ACHS 7. Hx of HTN -continue home lasix, amlodipine, valsartan, spirinolactone 8. Hx of chronic pancreatitis -continue pancreatic enzymes 9. Hx of anxiety -continue home xanax prn PPX: - GI: protonix - DVT: lovenox Regular diet - patient adamant about receiving regular diet with histor of leaving AMA Patient seen and case discussed with attending, Dr. Shama Loera DO Internal Medicine Resident PGY-1 <Manisha Leyva - Last Filed: 03/29/18 14:02> Objective - Vital Signs/Intake and Output Vital Signs (last 24 hours): Temp Pulse Resp BP Pulse Ox 98 F 61 18 129/74 99 03/29/18 06:00 03/29/18 09:48 03/29/18 06:00 03/29/18 09:49 03/29/18 06:00 Intake and Output: 03/29/18 03/29/18 06:59 18:59 Intake Total 240 Output Total 900 Balance -660 - Medications Medications: Current Medications Abacavir Sulfate (Ziagen) 300 mg PO BID [facility]; Protocol Last Admin: 03/29/18 09:48 Dose: 300 mg Acetaminophen (Tylenol 325mg Tab) 650 mg PO Q6H PRN PRN Reason: Pain, Mild (1-3) Last Admin: 03/27/18 18:17 Dose: 650 mg Albuterol/Ipratropium (Duoneb 3 Mg/0.5 Mg (3 Ml) Ud) 3 ml IH [id number] [facility] Last Admin: 03/29/18 13:35 Dose: 3 ml Albuterol/Ipratropium (Duoneb 3 Mg/0.5 Mg (3 Ml) Ud) 3 ml IH Q2H PRN PRN Reason: Shortness of Breath Alprazolam (Xanax) 0.25 mg PO TID PRN; Protocol PRN Reason: Anxiety Stop: 04/03/18 04:56 Last Admin: 03/29/18 09:48 Dose: 0.25 mg Amlodipine Besylate (Norvasc) 5 mg PO DAILY [facility] Last Admin: 03/29/18 09:48 Dose: 5 mg Aspirin (Ecotrin) 81 mg PO DAILY [facility] Last Admin: 03/29/18 09:47 Dose: 81 mg Azithromycin (Zithromax) 250 mg PO DAILY [facility]; Protocol Stop: 04/07/18 10:01 Last Admin: 03/29/18 09:47 Dose: 250 mg Budesonide (Pulmicort Respules) 0.5 mg IH [id number] [facility] Last Admin: 03/29/18 09:12 Dose: 0.5 mg Dextrose (Dextrose 50% Inj) 0 ml IV STAT PRN; Protocol PRN Reason: Hypoglycemia Protocol Docusate Sodium (Colace) 100 mg PO DAILY [facility] Last Admin: 03/29/18 09:47 Dose: 100 mg Enoxaparin Sodium (Lovenox) 40 mg SC DAILY [facility]; Protocol Last Admin: 03/29/18 09:56 Dose: Not Given Furosemide (Lasix) 20 mg PO DAILY [facility] Last Admin: 03/29/18 09:49 Dose: 20 mg Gabapentin (Neurontin) 300 mg PO TID [facility]; Protocol Last Admin: 03/29/18 09:47 Dose: 300 mg Guaifenesin/Dextromethorphan (Robitussin Dm) 5 ml PO Q4H PRN PRN Reason: Cough Guaifenesin/Dextromethorphan (Mucinex-Dm 600-30 Mg) 1 tab PO BID [facility] Last Admin: 03/29/18 09:49 Dose: Not Given Dextrose (Dextrose 5% In Water 1000 Ml) 1,000 mls @ 0 mls/hr IV .Q0M PRN; Protocol PRN Reason: Hypoglycemia Protocol Sodium Chloride (Sodium Chloride 0.9%) 1,000 mls @ 50 mls/hr IV .Q20H [facility] Last Admin: 03/28/18 21:21 Dose: Not Given Insulin Detemir (Levemir) 5 unit SC HS [facility] Last Admin: 03/28/18 21:44 Dose: 5 unit Insulin Human Lispro (Humalog) 4 units SC AC [facility] Last Admin: 03/29/18 12:14 Dose: 4 units Insulin Human Regular (Humulin R High) 0 units SC ACHS [facility]; Protocol Losartan Potassium (Cozaar) 25 mg PO DAILY [facility] Last Admin: 03/29/18 09:48 Dose: 25 mg Methylprednisolone (Solu-Medrol) 40 mg IVP Q8 [facility] Last Admin: 03/29/18 05:26 Dose: Not Given Montelukast Sodium (Singulair) 10 mg PO HS [facility] Last Admin: 03/28/18 21:44 Dose: 10 mg Lipase/Protease/Amylase [[place] 12 ,000 Units Capsule] (Home Med) 1 each PO TID [facility] Last Admin: 03/29/18 09:47 Dose: 1 each Raltegravir Potassium [Isentress Hd] 600 Mg (Home Med) 600 mg PO BID [facility] Last Admin: 03/29/18 09:47 Dose: 600 mg Pantoprazole Sodium (Protonix Ec Tab) 40 mg PO ACB [facility] Polyethylene Glycol (Miralax) 17 gm PO DAILY [facility] Last Admin: 03/29/18 09:46 Dose: 17 gm Spironolactone (Aldactone) 25 mg PO DAILY [facility] Last Admin: 03/29/18 09:48 Dose: 25 mg - Labs Labs: 03/27/18 00:41 03/27/18 02:35 Attending/Attestation - Attestation I have personally seen and examined this patient.: Yes I have fully participated in the care of the patient.: Yes I have reviewed all pertinent clinical information, including history, physical exam and plan: Yes Notes (Text): Patient seen and examined by me with resident at 8:20AM on 03/28/18. Case including HPI, physical exam, and assessment and plan discussed with resident. Agree with above with following additions/corrections. Patient is a 63 year old male with past medical history significant for HIV on HAART therapy, COPD on 2L home oxygen, hypertension, DM2, untreated hepatitis C, chronic pancreatitis, and lung nodule that presented to the ED with shortness of breath. Patient states he is feeling a little better today. Chest tightness and shortness of breath have improved. Patient with nonproductive cough which has also improved with cough syrup. No headaches or dizziness. No fevers or chills. No nausea, vomiting, or abdominal pain. No dysuria. Physical exam: General: Awake and alert lying in bed in no acute distress HEENT: Normocephalic, atraumatic. Extraocular muscles intact, pupils equal and reactive, no scleral icterus. Oropharynx is pink and moist. Neck is supple. Cardiovascular: Regular rhythm. Normal S1 and S2. No murmurs, rubs, or gallops appreciated Pulmonary: Normal respiratory effort. Decreased breath sounds. Positive coarse breath sounds heard throughout. No rales or wheezing appreciated. Gastrointestinal: Soft, nondistended. Nontender. Positive bowel sounds all 4 quadrants. No guarding. Musculoskeletal: Moves all extremities. No calf tenderness. Trace lower extremity edema appreciated. Central nervous system: AAOx3, CN 2-12 grossly intact Dermatologic: Skin warm and dry. Assessment and plan: Patient is a 63 year old male with past medical history significant for HIV on HAART therapy, COPD on 2L home oxygen, hypertension, DM2, untreated hepatitis C, chronic pancreatitis, and lung nodule that presented to the ED with shortness of breath. 1. COPD exacerbation. Continue nebulizer treatments. Continue solumedrol. Continue Zithromax. Continue budesonide. Continue Mucinex. Continue singulair 2. Pulmonary nodule. Patient is refusing any further work up. Discussed importance with patient who is still refusing. Chest CT per radiologist showed there are no infiltrated, no change in appearance of nodule in right upper lobe measuring 9x19mm. 3. HIV. ID following, recommendations appreciated. Continue Isentress and Abacavir. Patient on Bactrim per ID. Absolute CD4 count on 02/13/18 was 87. 4. Anemia. Chronic. H&H around baseline. Continue to monitor CBC. 5. DM2 with hyperglycemia. Continue insulin sliding scale. Continue levemir and Humalog. Monitor accuchecks. 6. Hypertension. Continue Norvasc, Cozaar, and Lasix 7. Constipation. Continue Colace and miralax. 8. Chronic pancreatitis. Continue pancreatic enzymes. 9. Anxiety. Continue Xanax TID as needed. 10. Peripheral neuropathy. Continue gabapentin 11. Patient is a full code. Case was discussed in detail with the patient regarding current diagnosis and treatment plan. All questions answered.
[2018-03-29] MEDS: Albuterol-Ipratrop 3 mg / 0.5 (3 ml) UD IH SCH ×7 (04:40→19:45)
[2018-03-29] MEDS: Insulin Reg-MEDIUM-Coverage SC SCH ×3 (05:23→12:14)
[2018-03-29] MEDS: MethylPREDNISolone 40 mg Vial IVP SCH ×3 (05:26→21:49)
[2018-03-29] MEDS: Budesonide 0.5 mg/2 ml Inhal Susp UD IH SCH ×3 (07:41→19:45)
[2018-03-29] MEDS: Insulin Lispro 1 UNITS/0.01 ML SC SCH ×3 (08:09→17:31)
[2018-03-29] MEDS: POLYETHYLENE GLYCOL 3350 17 GM/Dose PACKET PO SCH (09:46)
[2018-03-29] MEDS: RALTEGRAVIR POTASSIUM 600 MG PO SCH ×2 (09:47→17:32)
[2018-03-29] MEDS: PROTEASE PO SCH ×3 (09:47→17:32)
[2018-03-29] MEDS: LIPASE PO SCH ×3 (09:47→17:32)
[2018-03-29] MEDS: AMYLASE PO SCH ×3 (09:47→17:32)
[2018-03-29] MEDS: Enoxaparin 40 mg Syringe SC SCH ×2 (09:48→09:56)
[2018-03-29] MEDS: guaiFENesin-DM 600-30 mg ER Tab PO SCH ×2 (09:49→17:32)
[2018-03-29 10:50] VITALS: O2SAT 99
--- NOTE | 2018-03-29 15:09 | CP.PCM.PN ---
<Deepthi Loera - Last Filed: 03/29/18 16:00> Subjective - Date & Time of Evaluation Date of Evaluation: 03/29/18 Time of Evaluation: 15:02 - Subjective Subjective: Deepthi Loera PGY-1, Medicine Progress Note for Dr. Rodriguez: Pt was seen and examined this AM at bedside. He states that his SOB is the same as yesterday but much improved since admission. He currently denies having any chest tightness. He continues to admit to cough but states that the cough is the same as yesterday. He states that he is able to tolerate his diet and that he is moving his bowels and urinating without issue. Objective - Vital Signs/Intake and Output Vital Signs (last 24 hours): Temp Pulse Resp BP Pulse Ox 98 F 61 18 129/74 99 03/29/18 06:00 03/29/18 09:48 03/29/18 06:00 03/29/18 09:49 03/29/18 06:00 Intake and Output: 03/29/18 03/29/18 06:59 18:59 Intake Total 240 Output Total 900 Balance -660 - Medications Medications: Current Medications Abacavir Sulfate (Ziagen) 300 mg PO BID [facility]; Protocol Last Admin: 03/29/18 09:48 Dose: 300 mg Acetaminophen (Tylenol 325mg Tab) 650 mg PO Q6H PRN PRN Reason: Pain, Mild (1-3) Last Admin: 03/27/18 18:17 Dose: 650 mg Albuterol/Ipratropium (Duoneb 3 Mg/0.5 Mg (3 Ml) Ud) 3 ml IH [id number] [facility] Last Admin: 03/29/18 13:35 Dose: 3 ml Albuterol/Ipratropium (Duoneb 3 Mg/0.5 Mg (3 Ml) Ud) 3 ml IH Q2H PRN PRN Reason: Shortness of Breath Alprazolam (Xanax) 0.25 mg PO TID PRN; Protocol PRN Reason: Anxiety Stop: 04/03/18 04:56 Last Admin: 03/29/18 09:48 Dose: 0.25 mg Amlodipine Besylate (Norvasc) 5 mg PO DAILY [facility] Last Admin: 03/29/18 09:48 Dose: 5 mg Aspirin (Ecotrin) 81 mg PO DAILY [facility] Last Admin: 03/29/18 09:47 Dose: 81 mg Azithromycin (Zithromax) 250 mg PO DAILY [facility]; Protocol Stop: 04/07/18 10:01 Last Admin: 03/29/18 09:47 Dose: 250 mg Budesonide (Pulmicort Respules) 0.5 mg IH [id number] [facility] Last Admin: 03/29/18 09:12 Dose: 0.5 mg Dextrose (Dextrose 50% Inj) 0 ml IV STAT PRN; Protocol PRN Reason: Hypoglycemia Protocol Docusate Sodium (Colace) 100 mg PO DAILY [facility] Last Admin: 03/29/18 09:47 Dose: 100 mg Enoxaparin Sodium (Lovenox) 40 mg SC DAILY [facility]; Protocol Last Admin: 03/29/18 09:56 Dose: Not Given Furosemide (Lasix) 20 mg PO DAILY [facility] Last Admin: 03/29/18 09:49 Dose: 20 mg Gabapentin (Neurontin) 300 mg PO TID [facility]; Protocol Last Admin: 03/29/18 09:47 Dose: 300 mg Guaifenesin/Dextromethorphan (Robitussin Dm) 5 ml PO Q4H PRN PRN Reason: Cough Guaifenesin/Dextromethorphan (Mucinex-Dm 600-30 Mg) 1 tab PO BID [facility] Last Admin: 03/29/18 09:49 Dose: Not Given Dextrose (Dextrose 5% In Water 1000 Ml) 1,000 mls @ 0 mls/hr IV .Q0M PRN; Protocol PRN Reason: Hypoglycemia Protocol Sodium Chloride (Sodium Chloride 0.9%) 1,000 mls @ 50 mls/hr IV .Q20H [facility] Last Admin: 03/28/18 21:21 Dose: Not Given Insulin Detemir (Levemir) 5 unit SC HS [facility] Last Admin: 03/28/18 21:44 Dose: 5 unit Insulin Human Lispro (Humalog) 4 units SC AC [facility] Last Admin: 03/29/18 12:14 Dose: 4 units Insulin Human Regular (Humulin R High) 0 units SC ACHS [facility]; Protocol Losartan Potassium (Cozaar) 25 mg PO DAILY [facility] Last Admin: 03/29/18 09:48 Dose: 25 mg Methylprednisolone (Solu-Medrol) 40 mg IVP Q8 [facility] Last Admin: 03/29/18 05:26 Dose: Not Given Montelukast Sodium (Singulair) 10 mg PO HS [facility] Last Admin: 03/28/18 21:44 Dose: 10 mg Lipase/Protease/Amylase [[place] 12 ,000 Units Capsule] (Home Med) 1 each PO TID [facility] Last Admin: 03/29/18 09:47 Dose: 1 each Raltegravir Potassium [Isentress Hd] 600 Mg (Home Med) 600 mg PO BID [facility] Last Admin: 03/29/18 09:47 Dose: 600 mg Pantoprazole Sodium (Protonix Ec Tab) 40 mg PO ACB [facility] Polyethylene Glycol (Miralax) 17 gm PO DAILY [facility] Last Admin: 03/29/18 09:46 Dose: 17 gm Spironolactone (Aldactone) 25 mg PO DAILY [facility] Last Admin: 03/29/18 09:48 Dose: 25 mg - Labs Labs: 03/27/18 00:41 03/27/18 02:35 Assessment and Plan - Assessment and Plan (Free Text) Assessment: This is a 63 year old male with PMH of HIV with last CD4 of 87 on 02/13/2018 on HAART therapy, COPD on 2L home oxygen, HTN, DM, untreated hepatitis C, and chronic pancreatitis presenting to the ED for SOB that worsened the day before admission. Plan: 1. SOB -likely 2/2 COPD exacerbation -solumderol 40mg IV q8 -duonebs prn and deep -CXR did not show any acute process -azithromycin day 2 -pulmicort, singulair -elevated WBC, afebrile -blood, sputum, throat cultures and gram stain pending -histoplasma AB, legionella urine pending -ID on consult, Dr. Tracy 2. Lung mass -CT chest on 03/24/19 revealed 9x20mm irregular nodule in RUL suspicious for malignancy, unchanged from previous CT chest one month ago. Biopsy recommended -patient refused biopsy on this visit -consider patient education, revisit biopsy decision 3. Hx of HIV -continue home HAART -last CD4 in 02/13/2018 is 87 -ID on consult, Dr. Tracy 4. Anemia -borderline normocytic, currently at baseline Hg -consider hemoconcentration, consistent with dehydration picture with elevated BUN -NS 50cc -iron studies pending 5. Constipation -colace, miralax 6. Hx of DM -insulin ACHS 7. Hx of HTN -continue home lasix, amlodipine, valsartan, spirinolactone 8. Hx of chronic pancreatitis -continue pancreatic enzymes 9. Hx of anxiety -continue home xanax prn PPX: - GI: protonix - DVT: lovenox Regular diet - patient adamant about receiving regular diet with history of leaving AMA Patient seen and case discussed with attending, Dr. Jennifer Loera DO Internal Medicine Resident PGY-1 <Dulce Rodriguez - Last Filed: 03/30/18 14:48> Objective - Vital Signs/Intake and Output Vital Signs (last 24 hours): Temp Pulse Resp BP Pulse Ox 98.9 F 89 20 130/78 99 03/29/18 22:00 03/29/18 22:00 03/29/18 22:00 03/30/18 09:04 03/29/18 22:00 Intake and Output: 03/30/18 03/30/18 06:59 18:59 Intake Total 420 Output Total 600 Balance -180 - Labs Labs: 03/27/18 00:41 03/27/18 02:35 Attending/Attestation - Attestation I have personally seen and examined this patient.: Yes I have fully participated in the care of the patient.: Yes I have reviewed all pertinent clinical information, including history, physical exam and plan: Yes Notes (Text): 03/30/18 14:45 attending note; Patient seen and examined with resident. Patient is alert and awake. Shortness of breath is improving. Cough is improving. On oxygen nasal cannula. Patient is a 63 year old male with past medical history significant for HIV on H AART therapy, COPD on 2L home oxygen, hypertension, DM2, untreated hepatitis C, chronic pancreatitis, and lung nodule that presented to the ED with shortness of breath. 1. COPD exacerbation. Continue nebulizer treatments. Continue IV solumedrol. Continue Zithromax. Continue budesonide. Continue Mucinex. Continue singulair. Cough and shortness of breath is improving slowly. 2. Pulmonary nodule. Patient is refusing any further work up. Discussed importance with patient who is still refusing. Chest CT showed there are no infiltrates, no change in appearance of nodule in right upper lobe measuring 9x19mm. 3. HIV. ID recommendations appreciated. Continue Isentress and Abacavir. Patient on Bactrim per ID. Absolute CD4 count on 02/13/18 was 87. Continue Zithromax. 4. Anemia. Chronic. . Continue to monitor CBC. 5. DM2 with hyperglycemia. Continue insulin sliding scale. Continue levemir and Humalog. Monitor accuchecks. 6. Hypertension. Continue Norvasc, Cozaar. 7. Constipation. Continue Colace and miralax. 8. Chronic pancreatitis. Continue pancreatic enzymes. 9. Anxiety. Continue Xanax TID as needed. 10. Peripheral neuropathy. Continue gabapentin Upon discharge the patient will follow up with PMD .
[2018-03-29] MEDS ORDERED: Benzocaine/Menthol (Cepacol) Lozenge MT PRN (16:22)
[2018-03-29] MEDS: Insulin Reg-HIGH-Coverage SC SCH ×2 (17:31→21:46)
[2018-03-29] MEDS: Nystatin 100,000 Units/ml Oral Susp 5 ml UD PO SCH ×2 (17:32→21:49)
--- NOTE | 2018-03-29 20:34 | CP.PCM.PN ---
Subjective - Date & Time of Evaluation Date of Evaluation: 03/29/18 Time of Evaluation: 08:45 - Subjective Subjective: Still with cough, no fevers. Objective - Vital Signs/Intake and Output Vital Signs (last 24 hours): Temp Pulse Resp BP Pulse Ox 97.7 F 105 H 18 96/56 L 97 03/28/18 06:28 03/28/18 19:59 03/28/18 08:54 03/28/18 19:59 03/28/18 08:54 - Medications Medications: Current Medications Abacavir Sulfate (Ziagen) 300 mg PO BID [facility]; Protocol Last Admin: 03/28/18 17:06 Dose: 300 mg Acetaminophen (Tylenol 325mg Tab) 650 mg PO Q6H PRN PRN Reason: Pain, Mild (1-3) Last Admin: 03/27/18 18:17 Dose: 650 mg Albuterol/Ipratropium (Duoneb 3 Mg/0.5 Mg (3 Ml) Ud) 3 ml IH [id number] [facility] Last Admin: 03/28/18 20:56 Dose: Not Given Albuterol/Ipratropium (Duoneb 3 Mg/0.5 Mg (3 Ml) Ud) 3 ml IH Q2H PRN PRN Reason: Shortness of Breath Alprazolam (Xanax) 0.25 mg PO TID PRN; Protocol PRN Reason: Anxiety Stop: 04/03/18 04:56 Last Admin: 03/28/18 18:44 Dose: 0.25 mg Amlodipine Besylate (Norvasc) 5 mg PO DAILY [facility] Last Admin: 03/28/18 09:12 Dose: 5 mg Aspirin (Ecotrin) 81 mg PO DAILY [facility] Last Admin: 03/28/18 09:13 Dose: 81 mg Azithromycin (Zithromax) 250 mg PO DAILY [facility]; Protocol Stop: 04/07/18 10:01 Budesonide (Pulmicort Respules) 0.5 mg IH [id number] [facility] Last Admin: 03/28/18 20:56 Dose: Not Given Dextrose (Dextrose 50% Inj) 0 ml IV STAT PRN; Protocol PRN Reason: Hypoglycemia Protocol Docusate Sodium (Colace) 100 mg PO DAILY [facility] Last Admin: 03/28/18 09:13 Dose: 100 mg Enoxaparin Sodium (Lovenox) 40 mg SC DAILY [facility]; Protocol Last Admin: 03/28/18 09:14 Dose: 40 mg Furosemide (Lasix) 20 mg PO DAILY [facility] Last Admin: 03/28/18 09:13 Dose: 20 mg Gabapentin (Neurontin) 300 mg PO TID [facility]; Protocol Last Admin: 03/28/18 17:05 Dose: 300 mg Guaifenesin/Dextromethorphan (Robitussin Dm) 5 ml PO Q4H PRN PRN Reason: Cough Guaifenesin/Dextromethorphan (Mucinex-Dm 600-30 Mg) 1 tab PO BID [facility] Last Admin: 03/28/18 19:59 Dose: Not Given Dextrose (Dextrose 5% In Water 1000 Ml) 1,000 mls @ 0 mls/hr IV .Q0M PRN; Protocol PRN Reason: Hypoglycemia Protocol Sodium Chloride (Sodium Chloride 0.9%) 1,000 mls @ 50 mls/hr IV .Q20H [facility] Last Admin: 03/28/18 21:21 Dose: Not Given Insulin Detemir (Levemir) 5 unit SC HS [facility] Last Admin: 03/28/18 21:44 Dose: 5 unit Insulin Human Lispro (Humalog) 4 units SC AC [facility] Last Admin: 03/28/18 16:52 Dose: 4 units Insulin Human Regular (Humulin R Med) 0 units SC ACHS [facility]; Protocol Last Admin: 03/28/18 16:51 Dose: 8 units Losartan Potassium (Cozaar) 25 mg PO DAILY [facility] Last Admin: 03/28/18 19:59 Dose: Not Given Methylprednisolone (Solu-Medrol) 40 mg IVP Q8 [facility] Last Admin: 03/28/18 21:44 Dose: 40 mg Montelukast Sodium (Singulair) 10 mg PO HS [facility] Last Admin: 03/28/18 21:44 Dose: 10 mg Lipase/Protease/Amylase [Creon Dr 12 ,000 Units Capsule] (Home Med) 1 each PO TID [facility] Last Admin: 03/28/18 17:06 Dose: 1 each Raltegravir Potassium [Isentress Hd] 600 Mg (Home Med) 600 mg PO BID [facility] Last Admin: 03/28/18 17:07 Dose: 600 mg Pantoprazole Sodium (Protonix Inj) 40 mg IVP DAILY [facility] Last Admin: 03/28/18 09:13 Dose: 40 mg Polyethylene Glycol (Miralax) 17 gm PO DAILY [facility] Last Admin: 03/28/18 19:59 Dose: Not Given Spironolactone (Aldactone) 25 mg PO DAILY [facility] Last Admin: 03/28/18 09:22 Dose: 25 mg - Labs Labs: 03/27/18 00:41 03/27/18 02:35 - Constitutional Appears: Chronically Ill - Head Exam Head Exam: NORMAL INSPECTION - Respiratory Exam Respiratory Exam: Decreased Breath Sounds - Cardiovascular Exam Cardiovascular Exam: +S1, +S2 - GI/Abdominal Exam GI & Abdominal Exam: Soft. absent: Tenderness Assessment and Plan - Assessment and Plan (Free Text) Plan: Assessment SIRS probably due to acute exacerbation of COPD chronic HIV infection oral thrush right upper lobe lung mass, initially seen in 2016 hepatitis C infection history of pancreatitis history of polysubstance abuse Plan continue Zithromax day 3 of 3-5 days continue cART and should follow up with HIV provider as outpatient follow up plans for biopsy of lung mass - patient has repeatedly refused biopsy of the lung mass - reviewed CT chest - no groundglass opacities, no infiltrates
[2018-03-29] MEDS: Insulin Detemir 100 units/ml Vial (Levemir) SC SCH (21:49)
[2018-03-29 22:49] VITALS: PULSE 89; RESP 20; TEMP 98.9
[2018-03-30] MEDS ORDERED: Insulin Regular 1 UNITS/0.01 ML ML SC STA (00:58)
[2018-03-30] MEDS: Albuterol-Ipratrop 3 mg / 0.5 (3 ml) UD IH SCH ×3 (01:00→11:04)
[2018-03-30] MEDS: Insulin Regular 1 UNITS/0.01 ML ML SC STA ×2 (03:06→03:08)
[2018-03-30] MEDS: MethylPREDNISolone 40 mg Vial IVP SCH (05:52)
[2018-03-30] MEDS ORDERED: Pantoprazole 40 mg EC Tab PO SCH (07:30)
[2018-03-30] MEDS: Budesonide 0.5 mg/2 ml Inhal Susp UD IH SCH (07:47)
[2018-03-30] MEDS: Insulin Lispro 1 UNITS/0.01 ML SC SCH (08:28)
[2018-03-30] MEDS: Insulin Reg-HIGH-Coverage SC SCH (08:28)
[2018-03-30] MEDS: AMYLASE PO SCH ×2 (08:32→09:05)
[2018-03-30] MEDS: LIPASE PO SCH ×2 (08:32→09:05)
[2018-03-30] MEDS: PROTEASE PO SCH ×2 (08:32→09:05)
[2018-03-30] MEDS: RALTEGRAVIR POTASSIUM 600 MG PO SCH ×2 (08:32→09:05)
[2018-03-30] MEDS: POLYETHYLENE GLYCOL 3350 17 GM/Dose PACKET PO SCH (09:03)
[2018-03-30] MEDS: Nystatin 100,000 Units/ml Oral Susp 5 ml UD PO SCH (09:03)
[2018-03-30] MEDS: guaiFENesin-DM 600-30 mg ER Tab PO SCH (09:03)
[2018-03-30] MEDS: Enoxaparin 40 mg Syringe SC SCH (09:05)
[2018-03-30 09:10] VITALS: BP 130/78
--- NOTE | 2018-03-30 16:42 | CP.PCM.PN ---
Subjective - Date & Time of Evaluation Date of Evaluation: 03/30/18 Time of Evaluation: 07:40 - Subjective Subjective: Afebrile, comfortable, still with some shortness of breath on exertion. Objective - Vital Signs/Intake and Output Vital Signs (last 24 hours): Temp Pulse Resp BP Pulse Ox 98 F 61 18 129/74 99 03/29/18 06:00 03/29/18 09:48 03/29/18 06:00 03/29/18 09:49 03/29/18 06:00 - Medications Medications: Current Medications Abacavir Sulfate (Ziagen) 300 mg PO BID [facility]; Protocol Last Admin: 03/29/18 17:31 Dose: 300 mg Acetaminophen (Tylenol 325mg Tab) 650 mg PO Q6H PRN PRN Reason: Pain, Mild (1-3) Last Admin: 03/27/18 18:17 Dose: 650 mg Albuterol/Ipratropium (Duoneb 3 Mg/0.5 Mg (3 Ml) Ud) 3 ml IH [id number] [facility] Last Admin: 03/29/18 19:45 Dose: 3 ml Albuterol/Ipratropium (Duoneb 3 Mg/0.5 Mg (3 Ml) Ud) 3 ml IH Q2H PRN PRN Reason: Shortness of Breath Alprazolam (Xanax) 0.25 mg PO TID PRN; Protocol PRN Reason: Anxiety Stop: 04/03/18 04:56 Last Admin: 03/29/18 17:43 Dose: 0.25 mg Amlodipine Besylate (Norvasc) 5 mg PO DAILY [facility] Last Admin: 03/29/18 09:48 Dose: 5 mg Aspirin (Ecotrin) 81 mg PO DAILY [facility] Last Admin: 03/29/18 09:47 Dose: 81 mg Azithromycin (Zithromax) 250 mg PO DAILY [facility]; Protocol Stop: 04/07/18 10:01 Last Admin: 03/29/18 09:47 Dose: 250 mg Benzocaine/Menthol (Cepacol Sore Throat) 1 katie [place] Q2H PRN PRN Reason: Sore Throat Budesonide (Pulmicort Respules) 0.5 mg IH [id number] [facility] Last Admin: 03/29/18 19:45 Dose: 0.5 mg Dextrose (Dextrose 50% Inj) 0 ml IV STAT PRN; Protocol PRN Reason: Hypoglycemia Protocol Docusate Sodium (Colace) 100 mg PO DAILY [facility] Last Admin: 03/29/18 09:47 Dose: 100 mg Enoxaparin Sodium (Lovenox) 40 mg SC DAILY [facility]; Protocol Last Admin: 03/29/18 09:56 Dose: Not Given Furosemide (Lasix) 20 mg PO DAILY [facility] Last Admin: 03/29/18 09:49 Dose: 20 mg Gabapentin (Neurontin) 300 mg PO TID [facility]; Protocol Last Admin: 03/29/18 17:31 Dose: 300 mg Guaifenesin/Dextromethorphan (Robitussin Dm) 5 ml PO Q4H PRN PRN Reason: Cough Guaifenesin/Dextromethorphan (Mucinex-Dm 600-30 Mg) 1 tab PO BID [facility] Last Admin: 03/29/18 17:32 Dose: Not Given Dextrose (Dextrose 5% In Water 1000 Ml) 1,000 mls @ 0 mls/hr IV .Q0M PRN; Protocol PRN Reason: Hypoglycemia Protocol Sodium Chloride (Sodium Chloride 0.9%) 1,000 mls @ 50 mls/hr IV .Q20H [facility] Last Admin: 03/28/18 21:21 Dose: Not Given Insulin Detemir (Levemir) 5 unit SC HS [facility] Last Admin: 03/28/18 21:44 Dose: 5 unit Insulin Human Lispro (Humalog) 4 units SC AC [facility] Last Admin: 03/29/18 17:31 Dose: 4 units Insulin Human Regular (Humulin R High) 0 units SC ACHS [facility]; Protocol Last Admin: 03/29/18 17:31 Dose: 4 u Losartan Potassium (Cozaar) 25 mg PO DAILY [facility] Last Admin: 03/29/18 09:48 Dose: 25 mg Methylprednisolone (Solu-Medrol) 40 mg IVP Q8 [facility] Last Admin: 03/29/18 14:35 Dose: 40 mg Montelukast Sodium (Singulair) 10 mg PO HS [facility] Last Admin: 03/28/18 21:44 Dose: 10 mg Lipase/Protease/Amylase [[place] 12 ,000 Units Capsule] (Home Med) 1 each PO TID [facility] Last Admin: 03/29/18 17:32 Dose: 1 each Raltegravir Potassium [Isentress Hd] 600 Mg (Home Med) 600 mg PO BID [facility] Last Admin: 03/29/18 17:32 Dose: 600 mg Nystatin (Nystatin Oral Susp) 5 ml PO QID [facility] Last Admin: 03/29/18 17:32 Dose: 5 ml Pantoprazole Sodium (Protonix Ec Tab) 40 mg PO ACB [facility] Polyethylene Glycol (Miralax) 17 gm PO DAILY [facility] Last Admin: 03/29/18 09:46 Dose: 17 gm Spironolactone (Aldactone) 25 mg PO DAILY [facility] Last Admin: 03/29/18 09:48 Dose: 25 mg - Labs Labs: 03/27/18 00:41 03/27/18 02:35 - Constitutional Appears: Chronically Ill - Head Exam Head Exam: NORMAL INSPECTION - Respiratory Exam Respiratory Exam: Decreased Breath Sounds, Rhonchi - Cardiovascular Exam Cardiovascular Exam: +S1, +S2 - GI/Abdominal Exam GI & Abdominal Exam: Soft. 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
--- NOTE | 2018-03-31 00:13 | CP.PCM.DIS ---
Provider - Provider Date of Admission: 03/28/18 07:51 Attending physician: Dulce Rodriguez MD Consults: 03/27/18 05:04 Infectious Disease Consult Routine Comment: Consulting Provider: Wilfredo Tracy Consulting Physician: Wilfredo Tracy Reason for Consult: Hx of HIV, possible lung infection Time Spent in preparation of Discharge (in minutes): 45 Diagnosis - Discharge Diagnosis (1) COPD with acute exacerbation Status: Acute Priority: High Hospital Course - Lab Results Lab Results: Most Recent Lab Values WBC 12.7 10^3/uL (4.5-11.0) H D 03/27/18 00:41 RBC 3.49 10^6/uL (3.5-6.1) L 03/27/18 00:41 Hgb 8.3 g/dL (14.0-18.0) L 03/27/18 00:41 Hct 28.0 % (42.0-52.0) L 03/27/18 00:41 MCV 80.2 fl (80.0-105.0) 03/27/18 00:41 MCH 23.8 pg (25.0-35.0) L 03/27/18 00:41 MCHC 29.6 g/dl (31.0-37.0) L 03/27/18 00:41 RDW 17.7 % (11.5-14.5) H 03/27/18 00:41 Plt Count 430 10^3/uL (120.0-450.0) 03/27/18 00:41 MPV 9.8 fl (7.0-11.0) 03/27/18 00:41 Gran % 92.4 % (50.0-68.0) H 03/27/18 00:41 Lymph % (Auto) 3.7 % (22.0-35.0) L 03/27/18 00:41 [place] % (Auto) 3.9 % (1.0-6.0) 03/27/18 00:41 Eos % (Auto) 0.0 % (1.5-5.0) L 03/27/18 00:41 Baso % (Auto) 0.0 % (0.0-3.0) 03/27/18 00:41 Gran # 11.74 (1.4-6.5) H 03/27/18 00:41 Lymph # (Auto) 0.5 (1.2-3.4) L 03/27/18 00:41 [place] # (Auto) 0.5 (0.1-0.6) 1218 00:41 Eos # (Auto) 0.0 (0.0-0.7) 03/27/18 00:41 Baso # (Auto) 0.00 K/mm3 (0.0-2.0) 03/27/18 00:41 Neutrophils % (Manual) 92 % (50.0-70.0) H 03/27/18 00:41 Band Neutrophils % 2 % (0-2) 03/27/18 00:41 Lymphocytes % (Manual) 3 % (22.0-35.0) L 03/27/18 00:41 Monocytes % (Manual) 3 % (1.0-6.0) 12 00:41 Platelet Evaluation Normal (NORMAL) 03/27/18 00:41 Hypochromasia 1+ 03/27/18 00:41 Poikilocytosis (manual Slight 03/27/18 00:41 Ovalocytes 1+ 03/27/18 00:41 Stomatocytes Slight 03/27/18 00:41 Rouleaux 1+ 03/27/18 00:41 Schistocytes Slight 03/27/18 00:41 pCO2 45 mm/Hg (35-45) 03/27/18 06:50 pO2 110.0 mm/Hg (80-100) H 03/27/18 06:50 HCO3 30.6 mmol/L (21-28) H 03/27/18 06:50 ABG pH 7.44 (7.35-7.45) 03/27/18 06:50 ABG Total CO2 32.0 mmol.L (22-28) H 03/27/18 06:50 ABG O2 Saturation 100.3 % (95-98) H 03/27/18 06:50 ABG O2 Content 10.3 ML/dl (15-23) L 03/27/18 06:50 ABG Base Excess 5.9 mmol/L (-2.0-3.0) H 03/27/18 06:50 ABG Hemoglobin 7.4 g/dL (11.7-17.4) L 03/27/18 06:50 ABG Carboxyhemoglobin 2.2 % (0.5-1.5) H 03/27/18 06:50 POC ABG HHb (Measured) -0.3 % (0-5) L 03/27/18 06:50 ABG Methemoglobin 0.8 % (0.0-3.0) 03/27/18 06:50 ABG O2 Capacity 10.3 mL/dl (16-24) L 03/27/18 06:50 Hgb O2 Saturation 97.2 % (95.0-98.0) 03/27/18 06:50 FiO2 21.0 % 03/27/18 06:50 Sodium 139 mmol/L (132-148) 03/27/18 02:35 Potassium 4.2 mmol/L (3.6-5.0) 03/27/18 02:35 Chloride 103 mmol/L (98-107) 03/27/18 02:35 Carbon Dioxide 28 mmol/L (21-33) 03/27/18 02:35 Anion Gap 12 (10-20) 03/27/18 02:35 BUN 22 mg/dL (7-21) H 03/27/18 02:35 Creatinine 1.0 mg/dl (0.8-1.5) 03/27/18 02:35 Est GFR ( Amer) > 60 03/27/18 02:35 Est GFR (Non-Af Amer) > 60 03/27/18 02:35 POC Glucose (mg/dL) 273 mg/dL (65-110) H 03/30/18 06:47 Random Glucose 269 mg/dL (70-110) H 03/27/18 02:35 Calcium 9.4 mg/dL (8.4-10.5) 03/27/18 02:35 Phosphorus 3.4 mg/dL (2.5-4.5) 03/27/18 02:35 Magnesium 2.1 mg/dL (1.7-2.2) 03/27/18 02:35 Total Bilirubin 0.4 mg/dL (0.2-1.3) 03/27/18 02:35 AST 33 U/L (17-59) 03/27/18 02:35 ALT 26 U/L (7-56) 03/27/18 02:35 Alkaline Phosphatase 89 U/L (38-126) 03/27/18 02:35 Lactate Dehydrogenase 1675 U/L (333-699) H 03/27/18 01:15 Total Creatine Kinase 127 U/L (35-230) 03/27/18 01:15 Troponin I 0.01 ng/mL 03/27/18 01:15 Total Protein 6.8 g/dL (5.8-8.3) 03/27/18 02:35 Albumin 3.6 g/dL (3.0-4.8) 03/27/18 02:35 Globulin 3.1 gm/dL 03/27/18 02:35 Albumin/Globulin Ratio 1.2 (1.1-1.8) 03/27/18 02:35 - Hospital Course Hospital Course: Upon Admission: 63 year old male with PMHx of HIV with last CD4 of 87 on 02/13/2018 on HAART therapy, COPD on 2L home oxygen, HTN, DM, untreated hepatitis C, and chronic pancreatitis presenting to the ED on 03/26/2018 for SOB that worsened yesterday. Patient says SOB began one week ago and was admitted to the hospital a few days ago but left AMA the next day. He was also admitted to [facility] last month for similar complaints and left AMA as well. He states that his SOB over the last week has worsened since previous admission and is associated with nausea, chest tightness and constipation. Pt was admitted for COPD exacerbation and r/o infection due to Hx of HIV and lung nodule in the past CT scan. Hospital Course: During his hospital stay, Blood works was done with increased WBC and elevated BUN consistent with dehydration. Chest x-ray and CT scan was done with no acute findings. ECG was done with normal sinus rhythm. Infection disease team was con sulted on the case. Pt was started on Bactrim, IV Azithromycin, solumderol, duonebs prn, pulmicort and singulaire. Blood, sputum, throat cultures and gram stain was done with no positive findings. Pt was offered lung nodule biopsy on multiple occasions which he refused. COPD exacerbation is most likely the cause of his symptoms. Patient's symptoms improved during his hospital stay. Pt is well known to the medical team, and the plan for discharge is explained to the pt, and the pt expressed understanding and agreement to the medical plan for discharge. Pt was given adequate time to ask and address any questions or concerns prior to d/c. Upon Discharge: Patient's vitals are stable. Pt was advised to F/U with Infection disease specialist as an outpatient. Patients was advised to f/u and do a long nodule biopsy. Pt is stable for discharge from medicine standpoint. Patient's medications was changed to PO and prescription was sent to the pharmacy. 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 Pt is instructed to follow up with his primary care doctor and return to the hospital for any worsening symptoms. Disclaimer: Written above is a synopsis of patients current hospital admission. For full admission refer to EMR. Discharge Exam - Head Exam Head Exam: ATRAUMATIC, NORMAL INSPECTION, NORMOCEPHALIC - Eye Exam Eye Exam: EOMI, Normal appearance, PERRL - Respiratory Exam Respiratory Exam: Clear to PA & Lateral, NORMAL BREATHING PATTERN, UNREMARKABLE. absent: Accessory Muscle Use, Chest Wall Tenderness, Rales, Rhonchi, Wheezes, Respiratory Distress, Stridor - Cardiovascular Exam Cardiovascular Exam: RRR, +S1, +S2. absent: Gallop, Rubs - GI/Abdominal Exam GI & Abdominal Exam: Normal Bowel Sounds, Soft, Unremarkable. absent: Distended, Firm, Guarding, Tenderness - Extremities Exam Extremities exam: normal capillary refill, normal inspection, pedal pulses present - Back Exam Back exam: NORMAL INSPECTION. absent: CVA tenderness (L), CVA tenderness (R) - Neurological Exam Neurological exam: Alert, Oriented x3 - Psychiatric Exam Psychiatric exam: Normal Affect, Normal Mood - Skin Skin Exam: Dry, Intact, Normal Color, Warm Discharge Plan - Discharge Medications Prescriptions: Abacavir [Ziagen] 300 mg PO BID #60 tab Azithromycin [Zithromax] 250 mg PO DAILY #30 tab predniSONE [predniSONE Tab] 40 mg PO DAILY #8 tab Raltegravir Potassium [Isentress Hd] 600 mg PO BID #60 tablet - Follow Up Plan Condition: STABLE Disposition: HOME/ ROUTINE Instructions: Smoking: Not Just Harmful to Your Lungs and Heart, Exacerbation of COPD Additional Instructions: Please follow up with your primary care doctor, Dr. Lan, within 3-5 days of discharge from the hospital. Please discuss all medical issues addressed and any new medications that you may have been started on. You have been started on two new medications: 1. Zithromax 250mg once daily for prophylaxis against opportunistic infections. Please take this medication every day until a physician stops it. 2. Prednisone 40mg once daily for four days. After four days you will no longer need to take this medication. Please continue all other home medications as prescribed If your symptoms return, please seek emergency medical attention immediately at the nearest emergency room. Referrals: Ravi Lan MD [Family Provider] -
== END 2018-03-30 11:06 | disposition home or self-care (01) | DRG 191 ==
LOC: ED 23:21 → ERH 03-27 03:02 → OBSVTOIN 03-28 07:51 → ERH 03-28 08:26 → 5RNO 03-28 10:13
PROVIDERS: ADMIT Internal Medicine; ATTEND Internal Medicine
DX: J44.1 Chronic obstructive pulmonary disease with (acute) exacerbation (principal); K86.1 Other chronic pancreatitis; J96.10 Chronic respiratory failure, unspecified whether with hypoxia or hypercapnia; R65.10 Systemic inflammatory response syndrome (SIRS) of non-infectious origin without acute organ dysfunction; B20 Human immunodeficiency virus [HIV] disease; B37.0 Candidal stomatitis; I10 Essential (primary) hypertension; B19.20 Unspecified viral hepatitis C without hepatic coma; E11.65 Type 2 diabetes mellitus with hyperglycemia; D64.9 Anemia, unspecified; E86.0 Dehydration; F41.9 Anxiety disorder, unspecified; E11.42 Type 2 diabetes mellitus with diabetic polyneuropathy; G47.30 Sleep apnea, unspecified; K59.00 Constipation, unspecified; R91.1 Solitary pulmonary nodule; Z87.891 Personal history of nicotine dependence; Z99.81 Dependence on supplemental oxygen; Z79.899 Other long term (current) drug therapy; Z79.82 Long term (current) use of aspirin

== ENCOUNTER 2018-04-05 15:27 | Inpatient (IN) | payer MEDICARE, MEDICAID ==
[2018-04-05 16:01] VITALS: BMI 24.3
[2018-04-05] MEDS ORDERED: Albuterol-Ipratrop 3 mg / 0.5 (3 ml) UD IH STA ×2 (16:10→20:19)
--- NOTE | 2018-04-05 16:24 | ED PDOC ---
Arrival/HPI - General Chief Complaint: Cough, Cold, Congestion Time Seen by Provider: 04/05/18 15:37 Historian: Patient - History of Present Illness Narrative History of Present Illness (Text): 04/05/18 16:24 A 63 year old male, whose past medical history includes HIV on HAART therapy, COPD on 2L home oxygen, HTN, DM, untreated hepatitis C, and chronic pancreatitis, presents to the emergency department with a complaint of shortness of breath. Patient notes that he has been experiencing shortness of breath since the last time he was seen in the emergency department and admitted. He notes that he is on 2L of home oxygen. The reports that he completed the antibiotic prescribed to him. Patient denies fevers, chills, headache, dizziness, chest pain, dyspnea on exertion, cough, abdominal pain, nausea, vomiting, diarrhea, ba ck pain, neck pain, urinary/bowel changes, or any other complaint. Time/Duration: 1 week Symptom Onset: Sudden Symptom Course: Unchanged Activities at Onset: Rest, Light Context: Home Past Medical History - Provider Review Nursing Documentation Reviewed: Yes - Infectious Disease Hx of Infectious Diseases: None - Tetanus Immunization Tetanus Immunization: Unknown - Cardiac Hx Hypertension: Yes - Pulmonary Hx Asthma: No (denies) Hx Sleep Apnea: Yes (occasional uses bipap) - Neurological Hx Seizures: No - HEENT Hx HEENT Disorder: Yes Hx Cataracts: Yes (right eye sx) - Renal Hx Renal Disorder: No - Endocrine/Metabolic Hx Diabetes Mellitus Type 1: Yes - Hematological/Oncological Hx Blood Disorders: Yes Hx Anemia: Yes (blood transfusion) Hx Hepatitis C: Yes - Integumentary Hx Dermatological Disorder: No - Musculoskeletal/Rheumatological Hx Arthritis: Yes - Gastrointestinal Hx Pancreatitis: Yes - Genitourinary/Gynecological Hx Sexually Transmitted Diseases: No - Psychiatric Hx Anxiety: Yes Hx Substance Use: No (denies) - Surgical History Hx Orthopedic Surgery: No - Anesthesia Hx Anesthesia: Yes Hx Anesthesia Reactions: No Hx Malignant Hyperthermia: No - Suicidal Assessment Feels Threatened In Home Enviroment: No Family/Social History - Physician Review Nursing Documentation Reviewed: Yes Family/Social History: No Known Family HX Smoking Status: Former Smoker Hx Alcohol Use: No (denies) Hx Substance Use: No (denies) Substance used: h/o heroine use Allergies/Home Meds Allergies/Adverse Reactions: Allergies No Known Allergies Allergy (Verified 04/05/18 16:01) Home Medications: Home Meds Medication Instructions Recorded Confirmed RX: Aspirin [Ecotrin] 81 mg PO DAILY 03/24/18 03/30/18 Review of Systems - Physician Review All systems were reviewed & negative as marked: Yes - Review of Systems Constitutional: absent: Fevers Respiratory: SOB. absent: Cough Cardiovascular: absent: Chest Pain, VIDES Gastrointestinal: absent: Abdominal Pain, Stool Changes, Diarrhea, Nausea, Vomiting Genitourinary Male: absent: Urinary Output Changes Musculoskeletal: absent: Back Pain, Neck Pain Neurological: absent: Headache, Dizziness Physical Exam Appearance: Positive for: Non-Toxic, Ill-Appearing (chronically ill appearing) Pain Distress: None Mental Status: Positive for: Alert and Oriented X 3 - Systems Exam Head: Present: Atraumatic, Normocephalic Pupils: Present: PERRL Extroacular Muscles: Present: EOMI Conjunctiva: Present: Normal Mouth: Present: Moist Mucous Membranes Neck: Present: Normal Range of Motion Respiratory/Chest: Present: Good Air Exchange (Good air entry), Rhonchi (Diffuse rhonchi. ). No: Respiratory Distress, Accessory Muscle Use Cardiovascular: Present: Regular Rate and Rhythm, Normal S1, S2. No: Murmurs Abdomen: No: Tenderness, Distention, Peritoneal Signs Back: Present: Normal Inspection Upper Extremity: Present: Normal Inspection. No: Cyanosis, Edema Lower Extremity: Present: Normal Inspection. No: Edema Neurological: Present: GCS=15, CN II-XII Intact, Speech Normal Skin: Present: Warm, Dry, Normal Color. No: Rashes Psychiatric: Present: Alert, Oriented x 3, Normal Insight, Normal Concentration Medical Decision Making ED Course and Treatment: 04/05/18 16:42 Impression: A 63 year old male presents to the emergency department with a complaint of shortness of breath. Plan: -- EKG -- Chest X-ray -- Labs -- Urinalysis -- Blood Culture -- Duoneb and SOLU- Medrol -- Reassess and disposition Prior Visits: Notes and results from previous visits were reviewed. Patient was last seen in the emergency department on 03/27/18 for shortness of breath. Progress Notes: 04/05/18 17:04: Patient refusing IV where nurses see veins and denying EJ. Patient wants to sign out against medical advice. 04/05/18 17:15: When the AMA paperwork was handed to the patient, he changed his mind and is deciding to stay and let the nurse put in an IV. 04/05/18 18:37: Chest X-ray read and interpreted by me shows no active disease. Negative Chest X-ray. 04/05/18 19:20: Patient endorsed to Dr. De Jesus pending labs, reassessment and disposition. - Lab Interpretations I have reviewed the lab results: Yes - RAD Interpretation Radiology Orders: 04/05/18 16:10 CHEST TWO VIEWS (PA/LAT) [RAD] Stat - EKG Interpretation EKG Interpretation (Text): 04/05/18 16:57 EKG: Ordered, reviewed, and independently interpreted the EKG. Rate : 101 BPM Rhythm : Sinus Tachycardia Interpretation : Normal intervals. Normal axis. No ST or T wave changes. No ischemic changes. Interpreted by ED Physician: Yes Type: 12 lead EKG - Medication Orders Current Medication Orders: Discontinued Medications Albuterol/Ipratropium (Duoneb 3 Mg/0.5 Mg (3 Ml) Ud) 3 ml IH STAT STA Stop: 04/05/18 16:11 Methylprednisolone (Solu-Medrol) 125 mg IVP STAT STA Stop: 04/05/18 16:11 - Scribe Statement The provider has reviewed the documentation as recorded by the Jassonibjuliana Cardenas Provider Scribe Attestation: All medical record entries made by the Scribe were at my direction and personally dictated by me. I have reviewed the chart and agree that the record accurately reflects my personal performance of the history, physical exam, medical decision making, and the department course for this patient. I have also personally directed, reviewed, and agree with the discharge instructions and disposition. Disposition/Present on Arrival - Present on Arrival Any Indicators Present on Arrival: Yes History of DVT/PE: No History of Uncontrolled Diabetes: Yes Urinary Catheter: No History of Decub. Ulcer: No History Surgical Site Infection Following: None - Disposition Have Diagnosis and Disposition been Completed?: No Diagnosis: COPD exacerbation Disposition Time: 19:21 Condition: STABLE Forms: [employer] (Lithuanian)
[2018-04-05 19:24] LABS: VENOUS BLOOD GAS BASE EXCESS 3.6 mmol/L (0.0-2.0); VENOUS BLOOD GAS PO2 34 mm/Hg (30-55); VENOUS BLOOD PH 7.31 (7.32-7.43)
[2018-04-05 19:26] LABS: BASO # 0.01 K/mm3 (0.0-2.0); BASO % 0.1 % (0.0-3.0); EOS # 0.1 (0.0-0.7); GRAN # 6.67 (1.4-6.5); GRAN % 75.1 % (50.0-68.0); LYMPH # 1.6 (1.2-3.4); LYMPH % 17.8 % (22.0-35.0); MEAN CELL VOLUME 80.5 fl (80.0-105.0); MEAN CORPUSCULAR HEMOGLOBIN 23.1 pg (25.0-35.0); MEAN CORPUSCULAR HGB CONC 28.8 g/dl (31.0-37.0); MEAN PLATELET VOLUME 9.4 fl (7.0-11.0); MONO # 0.5 (0.1-0.6); RBC 3.89 10^6/uL (3.5-6.1); WHITE BLOOD COUNT 8.9 10^3/uL (4.5-11.0)
[2018-04-05 19:29] LABS: INR 1.07; PARTIAL THROMBOPLASTIN TIME 25.8 Seconds (25.1-36.5); PROTHROMBIN TIME 12.2 SECONDS (9.4-12.5)
--- NOTE | 2018-04-05 19:29 | ED PDOC ---
Physical Exam Pain Distress: None Mental Status: Positive for: Alert and Oriented X 3 Medical Decision Making ED Course and Treatment: 04/05/18 19:28: Case endorsed to me by Dr. Lee.Past HX. HIV,COPD, hepatitis,HTN,DM to ED for SOB.On home O2 recently finished a course of anti biotics.No hx. of any fever or productive cough.Pending lab results, reassessment, and final disposition. 04/05/18 20:[address] 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 - Lab Interpretations Lab Results: 04/05/18 18:44 Lab Results 04/05/18 18:44: pO2 34, VBG pH 7.31 L, VBG pCO2 63.0 H, VBG HCO3 31.7 H, VBG Total CO2 33.6 H, VBG O2 Sat (Calc) 63.2, VBG Base Excess 3.6 H, VBG Potassium 3.7, Sodium 138.0, Chloride 99.0, Glucose 359 H, Lactate 1.5, FiO2 21.0, Venous Blood Potassium 3.7 04/05/18 18:44: WBC 8.9 D, RBC 3.89, Hgb 9.0 L, Hct 31.3 L, MCV 80.5, MCH 23.1 L, MCHC 28.8 L, RDW 17.0 H, Plt Count 319, MPV 9.4, Gran % 75.1 H, Lymph % (Auto) 17.8 L, [place] % (Auto) 6.0, Eos % (Auto) 1.0 L, Baso % (Auto) 0.1, Gran # 6.67 H, Lymph # (Auto) 1.6, [place] # (Auto) 0.5, Eos # (Auto) 0.1, Baso # (Auto) 0.01 - RAD Interpretation Radiology Orders: 04/05/18 16:10 CHEST TWO VIEWS (PA/LAT) [RAD] Stat - Medication Orders Current Medication Orders: Discontinued Medications Albuterol/Ipratropium (Duoneb 3 Mg/0.5 Mg (3 Ml) Ud) 3 ml IH STAT STA Stop: 04/05/18 16:11 Last Admin: 04/05/18 17:25 Dose: 3 ml Methylprednisolone (Solu-Medrol) 125 mg IVP STAT STA Stop: 04/05/18 16:11 Last Admin: 04/05/18 18:55 Dose: 125 mg IVP Administration Document 04/05/18 18:55 OCS (Rec: 04/05/18 18:55 OCS [id number]) Charges for Administration # of IVP Administrations 1 - Scribe Statement The provider has reviewed the documentation as recorded by the Scribe Naima Cardenas Provider Scribe Attestation: All medical record entries made by the Scribe were at my direction and personally dictated by me. I have reviewed the chart and agree that the record accurately reflects my personal performance of the history, physical exam, medi haydee decision making, and the department course for this patient. I have also personally directed, reviewed, and agree with the discharge instructions and disposition. Disposition/Present on Arrival - Present on Arrival Any Indicators Present on Arrival: No History of DVT/PE: No History of Uncontrolled Diabetes: Yes Urinary Catheter: No History of Decub. Ulcer: No History Surgical Site Infection Following: None - Disposition Have Diagnosis and Disposition been Completed?: Yes Diagnosis: COPD exacerbation Disposition: HOSPITALIZED Disposition Time: 20:30 Patient Problems: Current Active Problems Problem Status Onset COPD exacerbation Acute Condition: STABLE Forms: [employer] (Nepalese)
[2018-04-05 19:44] LABS: B-TYPE NATRIURETIC PEPTIDE 74.2 pg/mL (0-450); TROPONIN I < 0.01 ng/mL
[2018-04-05 19:50] LABS: BLOOD UREA NITROGEN 14 mg/dL (7-21); CALCIUM 8.9 mg/dL (8.4-10.5); GFR NON-AFRICAN AMERICAN 56
[2018-04-05] MEDS ORDERED: Insulin Regular 1 UNITS/0.01 ML ML SC STA (20:24)
[2018-04-05] MEDS ORDERED: Ergocalciferol 50,000 Intl Units Cap PO SCH (21:15)
[2018-04-05] MEDS ORDERED: Dextrose 50% SYRINGE Inj (50 ml) IV PRN (21:27)
--- NOTE | 2018-04-05 21:27 | CP.PCM.HP ---
History of Present Illness - History of Present Illness History of Present Illness: Deepthi Loera, PGY-[address] Medicine Progress Note for [address]. Ferreira: CC: SOB and chest tightness x 6 days Pt is a 63 yo M with pmhx of HIV with last CD4 of 87 on 02/13/2018 on HAART therapy, COPD on 2L home oxygen, HTN, DM, untreated hepatitis C, and chronic pancreatitis who presents to the ED for 6 day hx of chest tightness and SOB. Pt reports that after discharge on 03/30 and he noted that he began to have chest tightness and SOB. He states that he took his prescribed antibiotics and he also completed his steroid taper. He states that he got into the cold and this is why he started noticing increased chest tightness and SOB. He states that he took his albuterol twice and home without any relief and decided to come into the ED. He states that he is currently having SOB, cough with hay colored sputum, and chest tightness which improves after albuterol administration. He is currently denying fevers, chills, chest pain, palpitations, leg swelling, orthopnea, PND, abd pain, n/v, c/d or dysuria. Pmhx: HIV on HAART therapy, COPD on 2L home oxygen, HTN, DM, untreated hepatitis C, and chronic pancreatitis Pshx: former tobacco, alcohol and drug user Meds: amlodipine 5mg daily, valsartan 150mg daily, spirinolactone 25mg daily, s ingulaire, neurontin 300mg TID, lasix 20mg daily, famotidine, xanax prn, abacavir, raltegravir All: NKDA Social: denies FH: denies PMD: Dr. Lan Pharm: [facility] [place] [facility] Present on Admission - Present on Admission Any Indicators Present on Admission: No Review of Systems - Review of Systems Review of Systems: 12 point ROS reviewed and negative except noted in HPI above. Past Patient History - Infectious Disease Hx of Infectious Diseases: None - Tetanus Immunizations Tetanus Immunization: Unknown - Past Medical History & Family History Past Medical History?: Yes - Past Social History Smoking Status: Former Smoker - CARDIAC Hx Hypertension: Yes - PULMONARY Hx Asthma: No (denies) Hx Sleep Apnea: Yes (occasional uses bipap) - NEUROLOGICAL Hx Seizures: No - HEENT Hx HEENT Problems: Yes Hx Cataracts: Yes (right eye sx) - RENAL Hx Chronic Kidney Disease: No - ENDOCRINE/METABOLIC Hx Diabetes Mellitus Type 1: Yes - HEMATOLOGICAL/ONCOLOGICAL Hx Blood Disorders: Yes Hx Anemia: Yes (blood transfusion) Hx Hepatitis C: Yes - INTEGUMENTARY Hx Dermatological Problems: No - MUSCULOSKELETAL/RHEUMATOLOGICAL Hx Arthritis: Yes - GASTROINTESTINAL Hx Pancreatitis: Yes - GENITOURINARY/GYNECOLOGICAL Hx Sexually Transmitted Disorders: No - PSYCHIATRIC Hx Anxiety: Yes Hx Substance Use: No (denies) - SURGICAL HISTORY Hx Orthopedic Surgery: No - ANESTHESIA Hx Anesthesia: Yes Hx Anesthesia Reactions: No Hx Malignant Hyperthermia: No Meds Allergies/Adverse Reactions: Allergies Allergy/AdvReac Type Severity Reaction Status Date / Time No Known Allergies Allergy Verified 04/05/18 16:01 Physical Exam - Constitutional Appears: Non-toxic, No Acute Distress - Head Exam Head Exam: ATRAUMATIC, NORMAL INSPECTION, NORMOCEPHALIC - Eye Exam Eye Exam: EOMI, Normal appearance, PERRL - Respiratory Exam Respiratory Exam: Decreased Breath Sounds, Wheezes (diffuse mild expiratory wheezing present b/l), NORMAL BREATHING PATTERN. absent: Accessory Muscle Use, Rales, Rhonchi, Respiratory Distress, Stridor - Cardiovascular Exam Cardiovascular Exam: RRR, +S1, +S2. absent: Gallop, Rubs - GI/Abdominal Exam GI & Abdominal Exam: Normal Bowel Sounds, Soft. absent: Distended, Guarding, Hernia, Rebound, Tenderness - Extremities Exam Extremities exam: Positive for: normal capillary refill, normal inspection, pedal pulses present. Negative for: pedal edema - Back Exam Back exam: NORMAL INSPECTION. absent: CVA tenderness (L), CVA tenderness (R) - Neurological Exam Neurological exam: Alert, Oriented x3 - Skin Skin Exam: Dry, Normal Color, Warm Results - Vital Signs Recent Vital Signs: Last Vital Signs Temp 97.9 F 04/05/18 20:55 Pulse 76 04/05/18 20:55 Resp 18 04/05/18 20:55 BP 137/71 04/05/18 20:55 Pulse Ox 100 04/05/18 20:55 - Labs Result Diagrams: 04/05/18 18:44 04/05/18 19:09 Labs: Laboratory Results - last 24 hr 04/05/18 04/05/18 04/05/18 18:44 18:44 18:44 WBC 8.9 D RBC 3.89 Hgb 9.0 L Hct 31.3 L MCV 80.5 MCH 23.1 L MCHC 28.8 L RDW 17.0 H Plt Count 319 MPV 9.4 Gran % 75.1 H Lymph % (Auto) 17.8 L [place] % (Auto) 6.0 Eos % (Auto) 1.0 L Baso % (Auto) 0.1 Gran # 6.67 H Lymph # (Auto) 1.6 [place] # (Auto) 0.5 Eos # (Auto) 0.1 Baso # (Auto) 0.01 PT 12.2 INR 1.07 APTT 25.8 pO2 34 VBG pH 7.31 L VBG pCO2 63.0 H VBG HCO3 31.7 H VBG Total CO2 33.6 H VBG O2 Sat (Calc) 63.2 VBG Base Excess 3.6 H VBG Potassium 3.7 Sodium 138.0 Chloride 99.0 Glucose 359 H Lactate 1.5 FiO2 21.0 Potassium Carbon Dioxide Anion Gap BUN Creatinine Est GFR ( Amer) Est GFR (Non-Af Amer) Random Glucose Calcium Magnesium Lactate Dehydrogenase Total Creatine Kinase Troponin I NT-Pro-B Natriuret Pep Venous Blood Potassium 3.7 04/05/18 19:09 WBC RBC Hgb Hct MCV MCH MCHC RDW Plt Count MPV Gran % Lymph % (Auto) [place] % (Auto) Eos % (Auto) Baso % (Auto) Gran # Lymph # (Auto) [place] # (Auto) Eos # (Auto) Baso # (Auto) PT INR APTT pO2 VBG pH VBG pCO2 VBG HCO3 VBG Total CO2 VBG O2 Sat (Calc) VBG Base Excess VBG Potassium Sodium 137 Chloride 97 L Glucose Lactate FiO2 Potassium 3.8 Carbon Dioxide 31 Anion Gap 13 BUN 14 Creatinine 1.3 Est GFR ( Amer) > 60 Est GFR (Non-Af Amer) 56 Random Glucose 339 H* D Calcium 8.9 Magnesium 2.1 Lactate Dehydrogenase 583 Total Creatine Kinase 40 Troponin I < 0.01 NT-Pro-B Natriuret Pep 74.2 Venous Blood Potassium Assessment & Plan - Assessment and Plan (Free Text) Assessment: Pt is a 63 yo M with pmhx of HIV with last CD4 of 87 on 02/13/2018 on HAART therapy, COPD on 2L home oxygen, HTN, DM, untreated hepatitis C, and chronic pancreatitis who presents to the ED for 6 day hx of chest tightness and SOB. Plan: SOB - likely 2/2 COPD exacerbation - solumderol 40mg IV q8 - xopenex deep - ABG pending - CXR did not show any acute process, f/u official read - Rocephin day 1 - pulmicort, singulair - wbc wnl, afebrile - Acetylcysteine - Tessalon pearles - blood, sputum, throat cultures and gram stain pending - ID on consult, Dr. Matias - UDS Hx of HIV - continue home HAART - NS @ 80/hr - last CD4 in 02/13/2018 is 87 - ID on consult, Dr. Tracy Anemia - consider hemoconcentration - Vitamin B12, Folate - EPO - iron studies pending Constipation - colace, miralax Hx of DM - insulin 10 sc, ISS med - Gabapentin 300 tid - Diabetic education - Hypoglycemia protocol in place Hx of HTN - continue home lasix, amlodipine, valsartan, spirinolactone Hx of chronic pancreatitis - continue pancreatic enzymes Hx of anxiety - continue home xanax prn PPX with pepcid and lovenox Case discussed with Dr. Hanna Loera, PGY-1
[2018-04-05] MEDS: Levalbuterol 0.63 MG/3 ML Inhal Soln UD IH SCH (23:32)
[2018-04-05] MEDS: Acetylcysteine 20% Inhal Soln (4ml) IH SCH (23:32)
[2018-04-06] MEDS: POLYETHYLENE GLYCOL 3350 17 GM/Dose PACKET PO SCH ×3 (00:11→19:06)
[2018-04-06] MEDS: Acetylcysteine 20% Inhal Soln (4ml) IH SCH ×3 (01:22→19:50)
[2018-04-06] MEDS: Insulin Lispro (humaLOG) MEDIUM Coverage SC SCH ×5 (04:09→22:22)
[2018-04-06] MEDS: MethylPREDNISolone 40 mg Vial IVP SCH ×4 (04:10→19:33)
[2018-04-06] MEDS: Sodium Chloride 0.9% 1,000 ML IV SCH ×2 (06:38→15:49)
[2018-04-06] MEDS: Pantoprazole 40 mg EC Tab PO SCH (06:39)
[2018-04-06] MEDS: Levalbuterol 0.63 MG/3 ML Inhal Soln UD IH SCH ×3 (07:24→19:52)
[2018-04-06 07:31] LABS: GRAN # 4.94 (1.4-6.5); GRAN % 90.2 % (50.0-68.0); LYMPH # 0.5 (1.2-3.4); LYMPH % 9.1 % (22.0-35.0); MEAN CELL VOLUME 78.9 fl (80.0-105.0); MEAN CORPUSCULAR HEMOGLOBIN 22.5 pg (25.0-35.0); MEAN CORPUSCULAR HGB CONC 28.5 g/dl (31.0-37.0); MEAN PLATELET VOLUME 9.1 fl (7.0-11.0); MONO % 0.7 % (1.0-6.0); PLATELET COUNT 309 10^3/uL (120.0-450.0); RBC 3.56 10^6/uL (3.5-6.1); WHITE BLOOD COUNT 5.5 10^3/uL (4.5-11.0)
[2018-04-06 07:46] LABS: ALBUMIN 3.8 g/dL (3.0-4.8); ALT/SGPT 28 U/L (7-56); AST/SGOT 21 U/L (17-59); BILIRUBIN,DIRECT 0.3 mg/dL (0.0-0.4); BLOOD UREA NITROGEN 20 mg/dL (7-21); CALCIUM 9.2 mg/dL (8.4-10.5); GFR NON-AFRICAN AMERICAN > 60; HDL CHOLESTEROL 67 mg/dL (29-60)
[2018-04-06 07:53] LABS: LDL CHOLESTEROL 131 mg/dL (0-129)
[2018-04-06 07:58] LABS: FREE T4 1.72 ng/dL (0.78-2.19); T4 11.1 ug/dL (5.5-11.0)
--- NOTE | 2018-04-06 08:17 | CP.PCM.CON ---
<NadineMillicent - Last Filed: 04/06/18 12:33> History of Present Illness - History of Present Illness History of Present Illness: PGY-[address] Tracy ID consult: AIDS/COPD Mr Gao, 63 M with PMHx of HIV with last CD4 of 87 on 02/13/2018 on HAART therapy (Isentress/Abacavir) and azithromax (250mg daily for? prophylaxis), COPD on 2L home oxygen, Hx lung nodule on CT, HTN, DM, untreated hepatitis C, and chronic pancreatitis on pancreatic enzymes C/O 6 day hx of chest tightness and SOB. Pt was discharged from [facility] [place] on 03/30 and he noted that he began to have chest tightness and SOB. He took daily low dose zithromax. He DID NOT complete steroid taper because he did not like the med. Pt said he had now cold symptoms, and had increased chest tightness and SOB. albuterol did not relieve Sx so he come to ED. ROS (+) SOB, (+) cough with hay colored sputum, (+) chest tightness which improves after albuterol (+) chills Denies night sweat, headache, vision changes, fevers, chest pain, palpitations, leg swelling, orthopnea, PND, abd pain, n/v, c/d or dysuria. In ED, VSS CBC: WBC 5.5. Hb 8 (9), MCV 78.9, plt 309 CMP unremarkable LFT normal. INR 1.07, alb 3.8 lactate 1.5 Total cholesteral 216. LDL 131 CXR: no active disease EKG: sinus tachycardia at 101. QTc 430 In ED, solumedrol 125 x 1, insulin, and albeterol. On the floor, pt got 2u prbc, ceftriaxone and doxycycline. solumedrol 40q12. Continue Abacavir (NsRTI)/Raltegravir (int-i) PMH: HIV on HAART therapy ((Isentress/Abacavir) and azithromax (250mg daily for? prophylaxis), CD4 of 87 on 02/13/2018 Hep C untreated HTN COPD on 2L home oxygen Hx lung nodule RUL 9x19mm (refused biopsy on several occasions) DM (A1C 8.4, Jan 2018) chronic pancreatitis on pancreatic enzymes Pshx: former tobacco, alcohol and drug user FH: denies Social: denies Meds: ?low dose z-bj, abacavir, raltegravir All: NKDA PMD: Dr. Lan Pharm: [facility] ID specialist: Dr Lorenzo, [id number] [facility], [facility] Past Patient History - Infectious Disease Hx of Infectious Diseases: None - Tetanus Immunizations Tetanus Immunization: Unknown - Past Medical History & Family History Past Medical History?: Yes - Past Social History Smoking Status: Former Smoker - CARDIAC Hx Hypertension: Yes - PULMONARY Hx Asthma: No (denies) Hx Sleep Apnea: Yes (occasional uses bipap) - NEUROLOGICAL Hx Seizures: No - HEENT Hx HEENT Problems: Yes Hx Cataracts: Yes (right eye sx) - RENAL Hx Chronic Kidney Disease: No - ENDOCRINE/METABOLIC Hx Diabetes Mellitus Type 1: Yes - HEMATOLOGICAL/ONCOLOGICAL Hx Blood Disorders: Yes Hx Anemia: Yes (blood transfusion) Hx Hepatitis C: Yes - INTEGUMENTARY Hx Dermatological Problems: No - MUSCULOSKELETAL/RHEUMATOLOGICAL Hx Arthritis: Yes - GASTROINTESTINAL Hx Pancreatitis: Yes - GENITOURINARY/GYNECOLOGICAL Hx Sexually Transmitted Disorders: No - PSYCHIATRIC Hx Anxiety: Yes Hx Substance Use: No (denies) - SURGICAL HISTORY Hx Orthopedic Surgery: No - ANESTHESIA Hx Anesthesia: Yes Hx Anesthesia Reactions: No Hx Malignant Hyperthermia: No Meds Allergies/Adverse Reactions: Allergies Allergy/AdvReac Type Severity Reaction Status Date / Time No Known Allergies Allergy Verified 04/05/18 16:01 - Medications Medications: Current Medications Abacavir Sulfate (Ziagen) 300 mg PO BID [facility]; Protocol Last Admin: 04/06/18 00:13 Dose: Not Given Acetaminophen (Tylenol 325mg Tab) 650 mg PO Q6 PRN PRN Reason: TEMP>=99.5F Acetaminophen (Tylenol 650 Mg Supp) 650 mg RC Q6H PRN PRN Reason: TEMP>=99.5F Acetaminophen (Tylenol 650 Mg Supp) 650 mg RC Q6H PRN PRN Reason: Headache Acetaminophen (Tylenol 325mg Tab) 650 mg PO Q6 PRN PRN Reason: Headache Acetylcysteine (Acetylcysteine 20%) 4 ml IH [id number] [facility] Last Admin: 04/06/18 07:24 Dose: Not Given Alprazolam (Xanax) 0.25 mg PO TID PRN; Protocol PRN Reason: Anxiety Stop: 04/12/18 21:07 Amylase (Pancrease 31525 U-5000 [id number] U) 1 unit PO TID [facility] Aspirin (Ecotrin) 81 mg PO DAILY [facility] Atorvastatin Calcium (Lipitor) 40 mg PO DIN [facility] Last Admin: 04/06/18 00:11 Dose: Not Given Benzonatate (Tessalon Perles) 200 mg PO TID [facility] Dextrose (Dextrose 50% Inj) 0 ml IV STAT PRN; Protocol PRN Reason: Hypoglycemia Protocol Docusate Sodium (Colace) 100 mg PO TID [facility] Enoxaparin Sodium (Lovenox) 40 mg SC DAILY [facility]; Protocol Ergocalciferol (Drisdol 50,000 Intl Units Cap) 1 cap PO Q7D [facility] Famotidine (Pepcid) 20 mg PO DAILY [facility] Gabapentin (Neurontin) 300 mg PO TID [facility]; Protocol Doxycycline Hyclate 100 mg/ (Sodium Chloride) 100 mls @ 100 mls/hr IVPB Q12 [facility]; Protocol Last Admin: 04/06/18 06:51 Dose: Not Given Ceftriaxone Sodium (Rocephin 2 Gm Ivpb) 2 gm in 100 mls @ 100 mls/hr IVPB DAILY [facility]; Protocol Sodium Chloride (Sodium Chloride 0.9%) 1,000 mls @ 80 mls/hr IV .[id number] [facility] Last Admin: 04/06/18 06:38 Dose: 80 mls/hr Dextrose (Dextrose 5% In Water 1000 Ml) 1,000 mls @ 0 mls/hr IV .Q0M PRN; Protocol PRN Reason: Hypoglycemia Protocol Insulin Human Lispro (Humalog Med) 0 units SC ACHS [facility]; Protocol Last Admin: 04/06/18 04:09 Dose: 1 units Insulin Human NPH (Humulin N) 10 units SC ACBD [facility] Levalbuterol HCl (Xopenex) 0.63 mg IH [id number] [facility] Last Admin: 04/06/18 07:24 Dose: 0.63 mg Methylprednisolone (Solu-Medrol) 40 mg IVP Q12H [facility] Montelukast Sodium (Singulair) 10 mg PO HS [facility] Last Admin: 04/06/18 04:10 Dose: Not Given Ondansetron HCl (Zofran Inj) 4 mg IVP Q4H PRN PRN Reason: Nausea/Vomiting Pantoprazole Sodium (Protonix Ec Tab) 40 mg PO 0600 [facility] Last Admin: 04/06/18 06:39 Dose: 40 mg Polyethylene Glycol (Miralax) 17 gm PO BID [facility] Last Admin: 04/06/18 00:11 Dose: Not Given Raltegravir (Isentress) 600 mg PO BID [facility] Last Admin: 04/06/18 00:12 Dose: Not Given Physical Exam - Constitutional Appears: No Acute Distress - Head Exam Head Exam: ATRAUMATIC, NORMAL INSPECTION, NORMOCEPHALIC - Eye Exam Eye Exam: EOMI, Normal appearance, PERRL. absent: Scleral icterus Pupil Exam: NORMAL ACCOMODATION - ENT Exam ENT Exam: Mucous Membranes Moist - Neck Exam Additional comments: supple - Respiratory Exam Respiratory Exam: Clear to Auscultation Bilateral, Rhonchi, NORMAL BREATHING PATTERN. absent: Decreased Breath Sounds, Rales, Wheezes - Cardiovascular Exam Cardiovascular Exam: REGULAR RHYTHM, +S1, +S2. absent: Systolic Murmur - GI/Abdominal Exam GI & Abdominal Exam: Soft. absent: Distended, Guarding, Rigid, Tenderness - Extremities Exam Extremities exam: Negative for: calf tenderness, pedal edema - Back Exam Back exam: absent: CVA tenderness (L), CVA tenderness (R) - Neurological Exam Neurological exam: Alert, Oriented x3 - Psychiatric Exam Psychiatric exam: Normal Affect, Normal Mood - Skin Skin Exam: Dry, Normal Color Results - Vital Signs Recent Vital Signs: Last Vital Signs Temp 98.2 F 04/06/18 07:00 Pulse 75 04/06/18 07:00 Resp 18 04/06/18 07:00 BP 126/80 04/06/18 07:00 Pulse Ox 98 04/06/18 07:00 - Labs Result Diagrams: 04/06/18 07:00 04/06/18 07:00 Labs: Laboratory Results - last 24 hr 04/05/18 04/05/18 04/05/18 18:44 18:44 18:44 WBC 8.9 D RBC 3.89 Hgb 9.0 L Hct 31.3 L MCV 80.5 MCH 23.1 L MCHC 28.8 L RDW 17.0 H Plt Count 319 MPV 9.4 Gran % 75.1 H Lymph % (Auto) 17.8 L Butts % (Auto) 6.0 Eos % (Auto) 1.0 L Baso % (Auto) 0.1 Gran # 6.67 H Lymph # (Auto) 1.6 Butts # (Auto) 0.5 Eos # (Auto) 0.1 Baso # (Auto) 0.01 Retic Count PT 12.2 INR 1.07 APTT 25.8 pO2 34 VBG pH 7.31 L VBG pCO2 63.0 H VBG HCO3 31.7 H VBG Total CO2 33.6 H VBG O2 Sat (Calc) 63.2 VBG Base Excess 3.6 H VBG Potassium 3.7 Sodium 138.0 Chloride 99.0 Glucose 359 H Lactate 1.5 FiO2 21.0 Potassium Carbon Dioxide Anion Gap BUN Creatinine Est GFR ( Amer) Est GFR (Non-Af Amer) POC Glucose (mg/dL) Random Glucose Uric Acid Calcium Phosphorus Magnesium Total Bilirubin Direct Bilirubin AST ALT Alkaline Phosphatase Lactate Dehydrogenase Total Creatine Kinase Troponin I NT-Pro-B Natriuret Pep Total Protein Albumin Globulin Albumin/Globulin Ratio Triglycerides Cholesterol LDL Cholesterol Direct HDL Cholesterol Free T4 Thyroxine (T4) TSH 3rd Generation Venous Blood Potassium 3.7 04/05/18 04/06/18 04/06/18 19:09 03:41 07:00 WBC RBC Hgb Hct MCV MCH MCHC RDW Plt Count MPV Gran % Lymph % (Auto) Butts % (Auto) Eos % (Auto) Baso % (Auto) Gran # Lymph # (Auto) Butts # (Auto) Eos # (Auto) Baso # (Auto) Retic Count PT INR APTT pO2 VBG pH VBG pCO2 VBG HCO3 VBG Total CO2 VBG O2 Sat (Calc) VBG Base Excess VBG Potassium Sodium 137 135 Chloride 97 L 99 Glucose Lactate FiO2 Potassium 3.8 4.7 Carbon Dioxide 31 30 Anion Gap 13 11 BUN 14 20 Creatinine 1.3 1.1 Est GFR ( Amer) > 60 > 60 Est GFR (Non-Af Amer) 56 > 60 POC Glucose (mg/dL) 490 H* Random Glucose 339 H* D 284 H Uric Acid 5.0 Calcium 8.9 9.2 Phosphorus 2.8 Magnesium 2.1 2.3 H Total Bilirubin 0.3 Direct Bilirubin 0.3 AST 21 ALT 28 Alkaline Phosphatase 98 Lactate Dehydrogenase 583 Total Creatine Kinase 40 Troponin I < 0.01 NT-Pro-B Natriuret Pep 74.2 Total Protein 7.4 Albumin 3.8 Globulin 3.6 Albumin/Globulin Ratio 1.0 L Triglycerides 68 Cholesterol 216 H LDL Cholesterol Direct 131 H HDL Cholesterol 67 H Free T4 Thyroxine (T4) TSH 3rd Generation Venous Blood Potassium 04/06/18 04/06/18 04/06/18 07:00 07:00 07:00 WBC 5.5 D RBC 3.56 Hgb 8.0 L Hct 28.1 L MCV 78.9 L MCH 22.5 L MCHC 28.5 L RDW 17.0 H Plt Count 309 MPV 9.1 Gran % 90.2 H Lymph % (Auto) 9.1 L Butts % (Auto) 0.7 L Eos % (Auto) 0.0 L Baso % (Auto) 0.0 Gran # 4.94 Lymph # (Auto) 0.5 L Butts # (Auto) 0.0 L Eos # (Auto) 0.0 Baso # (Auto) 0.00 Retic Count 0.98 PT INR APTT pO2 VBG pH VBG pCO2 VBG HCO3 VBG Total CO2 VBG O2 Sat (Calc) VBG Base Excess VBG Potassium Sodium Chloride Glucose Lactate FiO2 Potassium Carbon Dioxide Anion Gap BUN Creatinine Est GFR ( Amer) Est GFR (Non-Af Amer) POC Glucose (mg/dL) Random Glucose Uric Acid Calcium Phosphorus Magnesium Total Bilirubin Direct Bilirubin AST ALT Alkaline Phosphatase Lactate Dehydrogenase Total Creatine Kinase Troponin I NT-Pro-B Natriuret Pep Total Protein Albumin Globulin Albumin/Globulin Ratio Triglycerides Cholesterol LDL Cholesterol Direct HDL Cholesterol Free T4 1.72 Thyroxine (T4) 11.1 H TSH 3rd Generation 0.12 L Venous Blood Potassium Assessment & Plan - Assessment and Plan (Free Text) Plan: COPD exacerbation likely due to bacterial bronchitis R/O PCP pneumonia 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 - follow CD4 count, HIV viral load - Continue Abacavir (NsRTI) and Isentress(Raltegravir, Int-i). Add lamivudine 300 daily - Bactrim for PCP prophylaxis - follow on blood culture, sputum culture, fungitell-glucan, procalc, 2-view CXR. LDH normal - Continue ceftriaxone + doxy for bacterial bronchitis for now. Trend clinical course - hold laxative s/r/d/w Rossana <Wilfredo Tracy - Last Filed: 04/06/18 16:41> Meds - Medications Medications: Current Medications Abacavir Sulfate (Ziagen) 300 mg PO BID [facility]; Protocol Last Admin: 04/06/18 09:39 Dose: 300 mg Acetaminophen (Tylenol 325mg Tab) 650 mg PO Q6 PRN PRN Reason: TEMP>=99.5F Acetaminophen (Tylenol 650 Mg Supp) 650 mg RC Q6H PRN PRN Reason: TEMP>=99.5F Acetaminophen (Tylenol 650 Mg Supp) 650 mg RC Q6H PRN PRN Reason: Headache Acetaminophen (Tylenol 325mg Tab) 650 mg PO Q6 PRN PRN Reason: Headache Acetylcysteine (Acetylcysteine 20%) 4 ml IH [id number] [facility] Last Admin: 04/06/18 07:24 Dose: Not Given Alprazolam (Xanax) 0.25 mg PO TID PRN; Protocol PRN Reason: Anxiety Stop: 04/12/18 21:07 Last Admin: 04/06/18 09:36 Dose: 0.25 mg Amylase (Pancrease 56308 U-5000 U-77075 U) 5,000 unit PO TID [facility] Last Admin: 04/06/18 15:42 Dose: 5,000 unit Aspirin (Ecotrin) 81 mg PO DAILY [facility] Last Admin: 04/06/18 09:33 Dose: 81 mg Atorvastatin Calcium (Lipitor) 40 mg PO DIN [facility] Last Admin: 04/06/18 00:11 Dose: Not Given Benzonatate (Tessalon Perles) 200 mg PO TID [facility] Last Admin: 04/06/18 09:35 Dose: 200 mg Dextrose (Dextrose 50% Inj) 0 ml IV STAT PRN; Protocol PRN Reason: Hypoglycemia Protocol Docusate Sodium (Colace) 100 mg PO TID [facility] Last Admin: 04/06/18 09:34 Dose: Not Given Enoxaparin Sodium (Lovenox) 40 mg SC DAILY [facility]; Protocol Last Admin: 04/06/18 09:32 Dose: 40 mg Ergocalciferol (Drisdol 50,000 Intl Units Cap) 1 cap PO Q7D [facility] Famotidine (Pepcid) 20 mg PO DAILY [facility] Last Admin: 04/06/18 09:37 Dose: 20 mg Gabapentin (Neurontin) 300 mg PO TID [facility]; Protocol Last Admin: 04/06/18 15:43 Dose: 300 mg Doxycycline Hyclate 100 mg/ (Sodium Chloride) 100 mls @ 100 mls/hr IVPB Q12 [facility]; Protocol Last Admin: 04/06/18 09:36 Dose: 100 mls/hr Ceftriaxone Sodium (Rocephin 2 Gm Ivpb) 2 gm in 100 mls @ 100 mls/hr IVPB DAILY [facility]; Protocol Last Admin: 04/06/18 10:43 Dose: 100 mls/hr Sodium Chloride (Sodium Chloride 0.9%) 1,000 mls @ 80 mls/hr IV .[id number] [facility] Last Admin: 04/06/18 15:49 Dose: 80 mls/hr Dextrose (Dextrose 5% In Water 1000 Ml) 1,000 mls @ 0 mls/hr IV .Q0M PRN; Protocol PRN Reason: Hypoglycemia Protocol Iron Sucrose 200 mg/ Sodium (Chloride) 110 mls @ 110 mls/hr IVPB DAILY [facility] Stop: 04/10/18 10:59 Last Admin: 04/06/18 15:44 Dose: 110 mls/hr Insulin Human Lispro (Humalog Med) 0 units SC ACHS [facility]; Protocol Last Admin: 04/06/18 12:06 Dose: 5 units Insulin Human NPH (Humulin N) 10 units SC ACBD [facility] Last Admin: 04/06/18 08:42 Dose: 10 unit Lamivudine (Epivir) 300 mg PO DAILY [facility]; Protocol Levalbuterol HCl (Xopenex) 0.63 mg IH [id number] [facility] Last Admin: 04/06/18 13:13 Dose: 0.63 mg Methylprednisolone (Solu-Medrol) 40 mg IVP Q12H [facility] Last Admin: 04/06/18 09:30 Dose: 40 mg Montelukast Sodium (Singulair) 10 mg PO HS [facility] Last Admin: 04/06/18 04:10 Dose: Not Given Mupirocin (Bactroban Ointment) 0 gm TOP BID [facility] Last Admin: 04/06/18 12:04 Dose: 1 appl Ondansetron HCl (Zofran Inj) 4 mg IVP Q4H PRN PRN Reason: Nausea/Vomiting Pantoprazole Sodium (Protonix Ec Tab) 40 mg PO 0600 [facility] Last Admin: 04/06/18 06:39 Dose: 40 mg Polyethylene Glycol (Miralax) 17 gm PO BID [facility] Last Admin: 04/06/18 09:40 Dose: Not Given Raltegravir (Isentress) 600 mg PO BID [facility] Last Admin: 04/06/18 09:34 Dose: 600 mg Trimethoprim/Sulfamethoxazole (Bactrim Ds Tab) [address] [facility]; Protocol Results - Vital Signs Recent Vital Signs: Last Vital Signs Temp 99.2 F 04/06/18 14:00 Pulse 82 04/06/18 14:00 Resp 20 04/06/18 14:00 BP 113/80 04/06/18 14:00 Pulse Ox 99 04/06/18 14:00 - Labs Result Diagrams: 04/06/18 07:00 04/06/18 07:00 Labs: Laboratory Results - last 24 hr 04/05/18 04/05/18 04/05/18 18:44 18:44 18:44 WBC 8.9 D RBC 3.89 Hgb 9.0 L Hct 31.3 L MCV 80.5 MCH 23.1 L MCHC 28.8 L RDW 17.0 H Plt Count 319 MPV 9.4 Gran % 75.1 H Lymph % (Auto) 17.8 L Butts % (Auto) 6.0 Eos % (Auto) 1.0 L Baso % (Auto) 0.1 Gran # 6.67 H Lymph # (Auto) 1.6 Butts # (Auto) 0.5 Eos # (Auto) 0.1 Baso # (Auto) 0.01 Neutrophils % (Manual) Lymphocytes % (Manual) Monocytes % (Manual) Platelet Evaluation Hypochromasia Anisocytosis (manual) Retic Count PT 12.2 INR 1.07 APTT 25.8 pO2 34 VBG pH 7.31 L VBG pCO2 63.0 H VBG HCO3 31.7 H VBG Total CO2 33.6 H VBG O2 Sat (Calc) 63.2 VBG Base Excess 3.6 H VBG Potassium 3.7 Sodium 138.0 Chloride 99.0 Glucose 359 H Lactate 1.5 FiO2 21.0 Potassium Carbon Dioxide Anion Gap BUN Creatinine Est GFR ( Amer) Est GFR (Non-Af Amer) POC Glucose (mg/dL) Random Glucose Hemoglobin A1c Uric Acid Calcium Phosphorus Magnesium Iron TIBC % Saturation Ferritin Total Bilirubin Direct Bilirubin AST ALT Alkaline Phosphatase Lactate Dehydrogenase Total Creatine Kinase Troponin I NT-Pro-B Natriuret Pep Total Protein Albumin Globulin Albumin/Globulin Ratio Triglycerides Cholesterol LDL Cholesterol Direct HDL Cholesterol Vitamin B12 25-OH Vitamin D Total Folate Free T4 Thyroxine (T4) TSH 3rd Generation Venous Blood Potassium 3.7 Stool Occult Blood Hepatitis A IgM Ab Hep Bs Antigen Hep B Core IgM Ab Hepatitis C Antibody Blood Type Antibody Screen Crossmatch BBK History Checked 04/05/18 04/06/18 04/06/18 19:09 03:41 06:35 WBC RBC Hgb Hct MCV MCH MCHC RDW Plt Count MPV Gran % Lymph % (Auto) Butts % (Auto) Eos % (Auto) Baso % (Auto) Gran # Lymph # (Auto) Butts # (Auto) Eos # (Auto) Baso # (Auto) Neutrophils % (Manual) Lymphocytes % (Manual) Monocytes % (Manual) Platelet Evaluation Hypochromasia Anisocytosis (manual) Retic Count PT INR APTT pO2 VBG pH VBG pCO2 VBG HCO3 VBG Total CO2 VBG O2 Sat (Calc) VBG Base Excess VBG Potassium Sodium 137 Chloride 97 L Glucose Lactate FiO2 Potassium 3.8 Carbon Dioxide 31 Anion Gap 13 BUN 14 Creatinine 1.3 Est GFR ( Amer) > 60 Est GFR (Non-Af Amer) 56 POC Glucose (mg/dL) 490 H* 311 H Random Glucose 339 H* D Hemoglobin A1c Uric Acid Calcium 8.9 Phosphorus Magnesium 2.1 Iron TIBC % Saturation Ferritin Total Bilirubin Direct Bilirubin AST ALT Alkaline Phosphatase Lactate Dehydrogenase 583 Total Creatine Kinase 40 Troponin I < 0.01 NT-Pro-B Natriuret Pep 74.2 Total Protein Albumin Globulin Albumin/Globulin Ratio Triglycerides Cholesterol LDL Cholesterol Direct HDL Cholesterol Vitamin B12 25-OH Vitamin D Total Folate Free T4 Thyroxine (T4) TSH 3rd Generation Venous Blood Potassium Stool Occult Blood Hepatitis A IgM Ab Hep Bs Antigen Hep B Core IgM Ab Hepatitis C Antibody Blood Type Antibody Screen Crossmatch BBK History Checked 04/06/18 04/06/18 04/06/18 07:00 07:00 07:00 WBC RBC Hgb Hct MCV MCH MCHC RDW Plt Count MPV Gran % Lymph % (Auto) Butts % (Auto) Eos % (Auto) Baso % (Auto) Gran # Lymph # (Auto) Butts # (Auto) Eos # (Auto) Baso # (Auto) Neutrophils % (Manual) Lymphocytes % (Manual) Monocytes % (Manual) Platelet Evaluation Hypochromasia Anisocytosis (manual) Retic Count 0.98 PT INR APTT pO2 VBG pH VBG pCO2 VBG HCO3 VBG Total CO2 VBG O2 Sat (Calc) VBG Base Excess VBG Potassium Sodium 135 Chloride 99 Glucose Lactate FiO2 Potassium 4.7 Carbon Dioxide 30 Anion Gap 11 BUN 20 Creatinine 1.1 Est GFR ( Amer) > 60 Est GFR (Non-Af Amer) > 60 POC Glucose (mg/dL) Random Glucose 284 H Hemoglobin A1c Uric Acid 5.0 Calcium 9.2 Phosphorus 2.8 Magnesium 2.3 H Iron TIBC % Saturation Ferritin 47.2 Total Bilirubin 0.3 Direct Bilirubin 0.3 AST 21 ALT 28 Alkaline Phosphatase 98 Lactate Dehydrogenase Total Creatine Kinase Troponin I NT-Pro-B Natriuret Pep Total Protein 7.4 Albumin 3.8 Globulin 3.6 Albumin/Globulin Ratio 1.0 L Triglycerides 68 Cholesterol 216 H LDL Cholesterol Direct 131 H HDL Cholesterol 67 H Vitamin B12 640 25-OH Vitamin D Total Folate 19.1 Free T4 1.72 Thyroxine (T4) 11.1 H TSH 3rd Generation 0.12 L Venous Blood Potassium Stool Occult Blood Hepatitis A IgM Ab Hep Bs Antigen Hep B Core IgM Ab Hepatitis C Antibody Blood Type Antibody Screen Crossmatch BBK History Checked 04/06/18 04/06/18 04/06/18 07:00 07:00 07:00 WBC 5.5 D RBC 3.56 Hgb 8.0 L Hct 28.1 L MCV 78.9 L MCH 22.5 L MCHC 28.5 L RDW 17.0 H Plt Count 309 MPV 9.1 Gran % 90.2 H Lymph % (Auto) 9.1 L Butts % (Auto) 0.7 L Eos % (Auto) 0.0 L Baso % (Auto) 0.0 Gran # 4.94 Lymph # (Auto) 0.5 L Butts # (Auto) 0.0 L Eos # (Auto) 0.0 Baso # (Auto) 0.00 Neutrophils % (Manual) 94 H Lymphocytes % (Manual) 6 L Monocytes % (Manual) TEST NOT PERFORMED Platelet Evaluation Normal Hypochromasia 1+ Anisocytosis (manual) 1+ Retic Count PT INR APTT pO2 VBG pH VBG pCO2 VBG HCO3 VBG Total CO2 VBG O2 Sat (Calc) VBG Base Excess VBG Potassium Sodium Chloride Glucose Lactate FiO2 Potassium Carbon Dioxide Anion Gap BUN Creatinine Est GFR ( Amer) Est GFR (Non-Af Amer) POC Glucose (mg/dL) Random Glucose Hemoglobin A1c 10.6 H D Uric Acid Calcium Phosphorus Magnesium Iron TIBC % Saturation Ferritin Total Bilirubin Direct Bilirubin AST ALT Alkaline Phosphatase Lactate Dehydrogenase Total Creatine Kinase Troponin I NT-Pro-B Natriuret Pep Total Protein Albumin Globulin Albumin/Globulin Ratio Triglycerides Cholesterol LDL Cholesterol Direct HDL Cholesterol Vitamin B12 25-OH Vitamin D Total Folate Free T4 Thyroxine (T4) TSH 3rd Generation Venous Blood Potassium Stool Occult Blood Hepatitis A IgM Ab Negative Hep Bs Antigen Negative Hep B Core IgM Ab Negative Hepatitis C Antibody Reactive Blood Type Antibody Screen Crossmatch BBK History Checked 04/06/18 04/06/18 04/06/18 08:01 08:30 11:13 WBC RBC Hgb Hct MCV MCH MCHC RDW Plt Count MPV Gran % Lymph % (Auto) Butts % (Auto) Eos % (Auto) Baso % (Auto) Gran # Lymph # (Auto) Butts # (Auto) Eos # (Auto) Baso # (Auto) Neutrophils % (Manual) Lymphocytes % (Manual) Monocytes % (Manual) Platelet Evaluation Hypochromasia Anisocytosis (manual) Retic Count PT INR APTT pO2 VBG pH VBG pCO2 VBG HCO3 VBG Total CO2 VBG O2 Sat (Calc) VBG Base Excess VBG Potassium Sodium Chloride Glucose Lactate FiO2 Potassium Carbon Dioxide Anion Gap BUN Creatinine Est GFR ( Amer) Est GFR (Non-Af Amer) POC Glucose (mg/dL) 250 H Random Glucose Hemoglobin A1c Uric Acid Calcium Phosphorus Magnesium Iron 17 L TIBC 301 % Saturation 6 L Ferritin Total Bilirubin Direct Bilirubin AST ALT Alkaline Phosphatase Lactate Dehydrogenase Total Creatine Kinase Troponin I NT-Pro-B Natriuret Pep Total Protein Albumin Globulin Albumin/Globulin Ratio Triglycerides Cholesterol LDL Cholesterol Direct HDL Cholesterol Vitamin B12 25-OH Vitamin D Total < 12.8 L Folate Free T4 Thyroxine (T4) TSH 3rd Generation Venous Blood Potassium Stool Occult Blood Hepatitis A IgM Ab Hep Bs Antigen Hep B Core IgM Ab Hepatitis C Antibody Blood Type A POSITIVE Antibody Screen Negative Crossmatch See Detail BBK History Checked Patient has bt 04/06/18 04/06/18 13:25 16:19 WBC RBC Hgb Hct MCV MCH MCHC RDW Plt Count MPV Gran % Lymph % (Auto) Butts % (Auto) Eos % (Auto) Baso % (Auto) Gran # Lymph # (Auto) Butts # (Auto) Eos # (Auto) Baso # (Auto) Neutrophils % (Manual) Lymphocytes % (Manual) Monocytes % (Manual) Platelet Evaluation Hypochromasia Anisocytosis (manual) Retic Count PT INR APTT pO2 VBG pH VBG pCO2 VBG HCO3 VBG Total CO2 VBG O2 Sat (Calc) VBG Base Excess VBG Potassium Sodium Chloride Glucose Lactate FiO2 Potassium Carbon Dioxide Anion Gap BUN Creatinine Est GFR ( Amer) Est GFR (Non-Af Amer) POC Glucose (mg/dL) 133 H Random Glucose Hemoglobin A1c Uric Acid Calcium Phosphorus Magnesium Iron TIBC % Saturation Ferritin Total Bilirubin Direct Bilirubin AST ALT Alkaline Phosphatase Lactate Dehydrogenase Total Creatine Kinase Troponin I NT-Pro-B Natriuret Pep Total Protein Albumin Globulin Albumin/Globulin Ratio Triglycerides Cholesterol LDL Cholesterol Direct HDL Cholesterol Vitamin B12 25-OH Vitamin D Total Folate Free T4 Thyroxine (T4) TSH 3rd Generation Venous Blood Potassium Stool Occult Blood Positive H Hepatitis A IgM Ab Hep Bs Antigen Hep B Core IgM Ab Hepatitis C Antibody Blood Type Antibody Screen Crossmatch BBK History Checked Assessment & Plan - Assessment and Plan (Free Text) Plan: Infectious diseases Attending Physician Attestation Patient seen and examined, discussed with medical secretary receptionist. I have reviewed the patient's history of present illness, past medical, social, personal and family histories, pertinent physical exam findings, course so far in this hospital admission, pertinent laboratory and imaging results. I agree with the above findings, assessment and plan.
[2018-04-06 08:20] LABS: ANISOCYTOSIS 1+; HYPOCHROMIA 1+; LYMPHOCYTE 6 % (22.0-35.0); NEUTROPHIL 94 % (50.0-70.0); PLATELET ESTIMATE NORMAL (NORMAL)
--- NOTE | 2018-04-06 08:32 | RAD ---
Date of service: 04/05/2018 HISTORY: sob COMPARISON: 03/26/2018 TECHNIQUE: Chest PA and lateral FINDINGS: LUNGS: No active pulmonary disease. PLEURA: No significant pleural effusion identified. No pneumothorax apparent. CARDIOVASCULAR: No aortic atherosclerotic calcification present. Normal cardiac size. No pulmonary vascular congestion. OSSEOUS STRUCTURES: No significant abnormalities. VISUALIZED UPPER ABDOMEN: Normal. OTHER FINDINGS: None. IMPRESSION: No active disease.
[2018-04-06] MEDS: Insulin Human NPH 1 UNITS/0.01 ML SC SCH ×2 (08:42→19:28)
[2018-04-06 09:17] LABS: IRON 17 ug/dL (45-180)
[2018-04-06 09:26] LABS: % IRON SATURATION 6 % (20-55); TOTAL IRON BINDING CAPACITY 301 ug/dL (261-462)
--- NOTE | 2018-04-06 09:32 | CP.PCM.PN ---
Subjective - Date & Time of Evaluation Date of Evaluation: 04/06/18 Time of Evaluation: 09:08 - Subjective Subjective: Medicine Progress Note for Dr. Ferreira Patient seen and examined at bedside. No acute overnight events. Patient refused medications last night. Patient states that breathing is about the same as yesterday. Objective - Vital Signs/Intake and Output Vital Signs (last 24 hours): Temp Pulse Resp BP Pulse Ox 98.2 F 75 18 126/80 98 04/06/18 07:00 04/06/18 07:00 04/06/18 07:00 04/06/18 07:00 04/06/18 07:00 Intake and Output: 04/06/18 04/06/18 06:59 18:59 Intake Total 360 Output Total 400 Balance -40 - Medications Medications: Current Medications Abacavir Sulfate (Ziagen) 300 mg PO BID [facility]; Protocol Last Admin: 04/06/18 00:13 Dose: Not Given Acetaminophen (Tylenol 325mg Tab) 650 mg PO Q6 PRN PRN Reason: TEMP>=99.5F Acetaminophen (Tylenol 650 Mg Supp) 650 mg RC Q6H PRN PRN Reason: TEMP>=99.5F Acetaminophen (Tylenol 650 Mg Supp) 650 mg RC Q6H PRN PRN Reason: Headache Acetaminophen (Tylenol 325mg Tab) 650 mg PO Q6 PRN PRN Reason: Headache Acetylcysteine (Acetylcysteine 20%) 4 ml IH [id number] [facility] Last Admin: 04/06/18 07:24 Dose: Not Given Alprazolam (Xanax) 0.25 mg PO TID PRN; Protocol PRN Reason: Anxiety Stop: 04/12/18 21:07 Amylase (Pancrease [id number] U) 1 unit PO TID [facility] Aspirin (Ecotrin) 81 mg PO DAILY [facility] Atorvastatin Calcium (Lipitor) 40 mg PO DIN [facility] Last Admin: 04/06/18 00:11 Dose: Not Given Benzonatate (Tessalon Perles) 200 mg PO TID [facility] Dextrose (Dextrose 50% Inj) 0 ml IV STAT PRN; Protocol PRN Reason: Hypoglycemia Protocol Docusate Sodium (Colace) 100 mg PO TID [facility] Enoxaparin Sodium (Lovenox) 40 mg SC DAILY [facility]; Protocol Ergocalciferol (Drisdol 50,000 Intl Units Cap) 1 cap PO Q7D [facility] Famotidine (Pepcid) 20 mg PO DAILY [facility] Gabapentin (Neurontin) 300 mg PO TID [facility]; Protocol Doxycycline Hyclate 100 mg/ (Sodium Chloride) 100 mls @ 100 mls/hr IVPB Q12 [facility]; Protocol Last Admin: 04/06/18 06:51 Dose: Not Given Ceftriaxone Sodium (Rocephin 2 Gm Ivpb) 2 gm in 100 mls @ 100 mls/hr IVPB DAILY [facility]; Protocol Sodium Chloride (Sodium Chloride 0.9%) 1,000 mls @ 80 mls/hr IV .[id number] [facility] Last Admin: 04/06/18 06:38 Dose: 80 mls/hr Dextrose (Dextrose 5% In Water 1000 Ml) 1,000 mls @ 0 mls/hr IV .Q0M PRN; Protocol PRN Reason: Hypoglycemia Protocol Insulin Human Lispro (Humalog Med) 0 units SC ACHS [facility]; Protocol Last Admin: 04/06/18 08:40 Dose: 7 units Insulin Human NPH (Humulin N) 10 units SC ACBD [facility] Last Admin: 04/06/18 08:42 Dose: 10 unit Levalbuterol HCl (Xopenex) 0.63 mg IH [id number] [facility] Last Admin: 04/06/18 07:24 Dose: 0.63 mg Methylprednisolone (Solu-Medrol) 40 mg IVP Q12H [facility] Montelukast Sodium (Singulair) 10 mg PO HS [facility] Last Admin: 04/06/18 04:10 Dose: Not Given Ondansetron HCl (Zofran Inj) 4 mg IVP Q4H PRN PRN Reason: Nausea/Vomiting Pantoprazole Sodium (Protonix Ec Tab) 40 mg PO 0600 [facility] Last Admin: 04/06/18 06:39 Dose: 40 mg Polyethylene Glycol (Miralax) 17 gm PO BID [facility] Last Admin: 04/06/18 00:11 Dose: Not Given Raltegravir (Isentress) 600 mg PO BID [facility] Last Admin: 04/06/18 00:12 Dose: Not Given - Labs Labs: 04/06/18 07:00 04/06/18 07:00 PT 12.2 SECONDS (9.4-12.5) 04/05/18 18:44 INR 1.07 04/05/18 18:44 APTT 25.8 Seconds (25.1-36.5) 04/05/18 18:44 - Constitutional Appears: No Acute Distress - Head Exam Head Exam: NORMAL INSPECTION - Eye Exam Eye Exam: Normal appearance, PERRL - ENT Exam ENT Exam: Normal Exam - Neck Exam Neck Exam: Normal Inspection - Respiratory Exam Respiratory Exam: Rhonchi, Wheezes. absent: Accessory Muscle Use, Chest Wall Tenderness, Clear to Ausculation Bilateral, Rales, Respiratory Distress - Cardiovascular Exam Cardiovascular Exam: RRR, +S1, +S2. absent: Gallop, Rubs, Murmur - GI/Abdominal Exam GI & Abdominal Exam: Soft. absent: Guarding, Tenderness, Rebound - Exam Exam: absent: NORMAL INSPECTION (scrotal erythema) - Extremities Exam Extremities Exam: Normal Inspection - Back Exam Back Exam: NORMAL INSPECTION - Neurological Exam Neurological Exam: Alert, Awake, CN II-XII Intact, Oriented x3 - Psychiatric Exam Psychiatric exam: Normal Affect, Normal Mood - Skin Skin Exam: Dry, Intact, Normal Color, Warm Assessment and Plan - Assessment and Plan (Free Text) Assessment: Pt is a 63 yo M with PMH of HIV with last CD4 of 87 on 02/13/2018 on HAART therapy, COPD on 2L home oxygen, HTN, DM, untreated hepatitis C, and chronic pancreatitis who presents to the ED for 6 day hx of chest tightness and SOB. Patient is currently being evaluated for COPD exacerbation. Patient intermittently refuses medications. Patient advised to be compliant with medications, benefits and risks were discussed. Plan: COPD exacerbation - solumderol 40mg IV q12 - Cont xopenex, pulmicort, singulair, acetylcysteine - ABG pending - CXR negative - Doxy/Rocephin - Uri cruz for cough - blood, sputum, throat cultures and gram stain pending - ID on consult, Dr. Matias - UDS Hx of HIV - continue home HAART - last CD4 in 02/13/2018 is 87 - Quantitative HIV ordered - Fungitell ordered - RPR ordered - Hep panel ordered - ID on consult, Dr. Tracy Iron Deficiency Anemia - Transfuse 2 units pRBC - Patient consented - Vitamin B12, Folate - EPO - Venofer started Subclinical Hyperthyroidism - Low TSH, elevated FT4 - Thyroid US ordered Scrotal Erythema - Bactroban to affected area Constipation - colace, miralax Hx of DM - insulin 10 sc, ISS med - Gabapentin 300 tid - Diabetic education - Hypoglycemia protocol in place Hx of HTN - continue home lasix, amlodipine, valsartan, spirinolactone Hx of chronic pancreatitis - continue pancreatic enzymes Hx of anxiety - continue home xanax prn PPX with pepcid and lovenox Patient seen and discussed in detail with Dr. Ferreira. Zhou Carrillo, DO PGY2
[2018-04-06] MEDS ORDERED: Enoxaparin 40 mg Syringe SC SCH (10:00)
[2018-04-06] MEDS ORDERED: Amylase/Lipase/Protease 5,000 Units ECC PO SCH (10:00)
[2018-04-06] MEDS: cefTRIAXone 2 GM IN NS 2 GM/100 ML BAG IVPB SCH (10:43)
[2018-04-06] MEDS: Amylase/Lipase/Protease 5,000 Units ECC PO SCH ×3 (10:56→19:27)
--- NOTE | 2018-04-06 11:19 | CARD ---
APPROVED REPORT Date of service: 04/05/2018 EKG Measurement Heart [id number] <Conclusion> Sinus tachycardia Possible Left atrial enlargement No change
[2018-04-06] MEDS: Mupirocin 2% Ointment 15 GM TUBE TOP SCH ×2 (12:04→19:29)
[2018-04-06 13:26] LABS: HEPATITIS B SURFACE AG Negative (NEGATIVE)
[2018-04-06 13:32] LABS: HEPATITIS A IGM NEGATIVE (NEGATIVE); HEPATITIS B CORE AB NEGATIVE (NEGATIVE)
[2018-04-06 13:34] LABS: FERRITIN 47.2 ng/mL
[2018-04-06 14:04] LABS: FOLATE 19.1 ng/mL
[2018-04-06 14:58] LABS: HEPATITIS C ANTIBODY REACTIVE (NEGATIVE)
--- NOTE | 2018-04-06 15:02 | US ---
Date of service: 04/06/2018 HISTORY: hyperthyroid TECHNIQUE: Sonographic evaluation of the thyroid gland. COMPARISON: None available. FINDINGS: RIGHT LOBE: Measures 5.1 x 1.6 x 2.0 cm. Mildly heterogeneous echotexture is appreciated with mildly hyperemic blood flow. Nodules: 3 nodules are identified at the right lobe. At the lower pole, there is a dominant nodule measure 1.3 x 1.0 x 1.4 cm which is nearly isoechoic with a peripheral halo nearly completely surrounding the nodule. A 2nd nodule is identified solid at the midpole with a similar thin halo measuring 0.6 x 0.5 x 0.7 cm. Finally, at the upper pole posteriorly, there is a hypoechoic nodule measuring 0.7 x 0.4 x 0.4 cm versus complex cyst with limited internal inhomogeneity. Of these 3 nodules, the dominant nodule at the lower pole is mildly hyperemic with remainder hypovascular. LEFT LOBE: Measures 4.0 x 1.2 x 1.8 cm. Mildly heterogeneous echotexture is appreciated with mildly hyperemic blood flow. Nodules: At the left lobe, there is a solitary, hypovascular hypoechoic nodular complex cyst measuring 0.6 x 0.4 x 0.5 cm with remainder of the left lobe unremarkable. ISTHMUS: Measures 0.4 cm. Heterogeneous in echotexture. Nodules: None OTHER FINDINGS: None . IMPRESSION: Three nodules are identified at the right lobe with solitary focus at the left. The dominant nodule at the lower pole right lobe measures 1.4 cm with the hypoechoic halo partially surrounding it and a lot the nodule is hyperemic. Consider follow-up FNA for further characterization.
--- NOTE | 2018-04-06 15:52 | RAD ---
Date of service: 04/06/2018 HISTORY: r/o pna COMPARISON: 04/05/2018 TECHNIQUE: Chest PA and lateral FINDINGS: LUNGS: No active pulmonary disease. PLEURA: No significant pleural effusion identified. No pneumothorax apparent. CARDIOVASCULAR: No aortic atherosclerotic calcification present. Normal cardiac size. No pulmonary vascular congestion. OSSEOUS STRUCTURES: No significant abnormalities. VISUALIZED UPPER ABDOMEN: Normal. OTHER FINDINGS: None. IMPRESSION: No active disease.
[2018-04-06 16:44] LABS: URINE APPEARANCE CLEAR (CLEAR); URINE BILIRUBIN NEGATIVE (NEGATIVE); URINE BLOOD NEGATIVE (NEGATIVE); URINE COLOR YELLOW (YELLOW); URINE GLUCOSE (UA) 500 mg/dL (NEGATIVE); URINE LEUKOCYTE ESTERASE NEGATIVE Leu/uL (NEGATIVE); URINE PROTEIN TRACE mg/dL (<30 mg/dL); URINE UROBILINOGEN 0.2 E.U./dL (<1 E.U./dL)
[2018-04-06 16:57] LABS: URINE EPITHELIAL CELLS 0 - 2 /hpf (0-5); URINE RBC 0 - 2 /hpf (0-2); URINE WBC NEGATIVE /hpf (0-6)
[2018-04-06 17:02] LABS: BENZODIAZEPINES, UR NEGATIVE (NEGATIVE)
[2018-04-06 17:14] LABS: BARBITURATES, UR NEGATIVE (NEGATIVE); OPIATES, UR POSITIVE (NEGATIVE); PHENCYCLIDINE, UR NEGATIVE (NEGATIVE)
--- NOTE | 2018-04-06 19:09 | CON ---
DATE OF CONSULTATION: 04/06/2018 REQUESTING PHYSICIAN: Suraj Ferreira MD REASON FOR CONSULTATION: I have been asked to see this 63-year-old male with multiple comorbidities including HIV disease, advanced COPD requiring home oxygen, type 2 diabetes mellitus, chronic pancreatitis, hypertension, untreated hepatitis C, who comes to the hospital with increasing shortness of breath and chest tightness. The patient has a history of chronic anemia. He was just hospitalized several weeks ago and required a blood transfusion. He denies any rectal bleeding, melena, nausea, vomiting, or hematemesis. He denies any abdominal pain. Routine blood work shows his hemoglobin at 8.1 g. Several months ago, he had a CBC, which showed hemoglobin as low as 7.1. The patient has not had an endoscopy or colonoscopy. PAST MEDICAL HISTORY: As above. Again, he has a history of HIV, on HAART therapy; advanced COPD, requiring home oxygen; type 2 diabetes mellitus; chronic pancreatitis; hypertension; hepatitis C. SOCIAL HISTORY: He is a former cigarette smoker, alcohol abuser, and intravenous drug user. MEDICATIONS AT HOME: Valsartan 160 mg daily, amlodipine, spironolactone, Neurontin, Singulair, Lasix, Creon, famotidine, Xanax, and HAART therapy. REVIEW OF SYSTEMS: A 14-point review of systems is notable for shortness of breath and chest tightness. PHYSICAL EXAMINATION: GENERAL: Well-developed male, lying in bed, in no acute distress. VITAL SIGNS: Temperature of 98.2, blood pressure of 126/80, heart rate of 75. HEENT: Reveal sclerae to be white. Conjunctivae pink. NECK: Supple. CHEST: Mild wheezing. HEART: Regular rate and rhythm. ABDOMEN: Soft and nontender. EXTREMITIES: No edema. LABORATORY DATA: Hemoglobin of 8, reticulocyte count 0.98. Coags reveal normal PT/INR. Chemistries reveal blood sugar 284. Iron saturation is 6. PT/INR are normal. IMPRESSION: 1. A 63-year-old male with chronic anemia, human immunodeficiency virus disease, advanced chronic obstructive pulmonary disease, admitted with shortness of breath. Negative chest x-ray. Most likely exacerbation of chronic obstructive pulmonary disease. 2. Chronic anemia. RECOMMENDATIONS: 1. Check stool guaiacs. 2. We will schedule the patient for an upper endoscopy in the morning. Jac Yin MD [facility] # [id number]
--- NOTE | 2018-04-06 23:48 | HP ---
DATE OF EXAM: 04/05/2018 HISTORY OF PRESENT ILLNESS: The patient is a 63-year-old male with history of multiple ER visits and multiple hospitalization and history of multiple at times signing out against medical advise and history of very poor compliance and extremely poor compliance and severe noncompliance came to the emergency room as via [facility] BLS ambulance complaining of cough, shortness of breath, congestion according to the triage note. According to the ER physician evaluation, the patient came to the emergency room complaining of shortness of breath despite patient taking oxygen at home. The patient recently signed out against medical advise from [facility]. According to the ER physician and the district medical examiner evaluation, the patient has been having these worsening symptoms after he was discharged on 03/30/2018. The patient's symptoms have been getting worse after the discharge. Complaining of shortness of breath, coughing and sputum production. CODE STATUS: Full code. LIVING WILL ADVANCED DIRECTIVE: None. ALLERGIES: None. Height is 5 feet 9 inches. Weight is 165 pounds. BMI is 25.4. HOME MEDICATIONS: Isentress 600 mg twice a day, Singulair 10 mg at bedtime, Creon 12,000 units three times a day, gabapentin 300 mg three times a day, Pepcid 20 mg daily, Ecotrin 81 mg daily, Ziagen 300 mg twice a day, Xanax 0.25 mg t.i.d. p.r.n., prednisone 40 mg daily tapering, Norvasc 5 mg daily, Diovan 40 mg daily, Aldactone 25 mg daily, Lasix 20 mg daily, Symbicort 164.5 twice a day, Zithromax 250 daily and Ventolin inhaler. PAST MEDICAL AND SURGICAL HISTORY: History of advanced COPD, oxygen-dependent history of HIV AIDS, history of noncompliance, history of poor compliance, history of pancreatitis, history of diabetic neuropathy, history of anxiety disorder, history of hypertension, history of hepatitis C, history of hyperlipidemia, history of diabetes mellitus, history of right eye cataract surgery, history of facial fractures, history of gait dysfunction, history of anxiety, history of major depression, history of emphysema, history of sleep apnea, history of bronchitis, history of AIDS, history of anemia, history of blood transfusion, history of facial surgery, history of multiple COPD exacerbation, history of lumbar disk disease, lumbar spine degenerative disk disease, history of hepatic steatosis, history of anxiety and depression. The patient was seen and examined in the emergency room. The patient was also seen and examined by the district medical examiner . FAMILY HISTORY: Not available. SOCIAL HISTORY: Positive for former IV drug user. Positive for former drug user, former smoker. OCCUPATIONAL HISTORY: Disabled. PHYSICAL EXAMINATION: GENERAL: The patient is seen sitting up in the stretcher. VITAL SIGNS: T-max 97.9. Telemetry shows heart rate of 76, normal sinus rhythm, blood pressure is 137/71, respiration was 18, O2 sat is 100%. HEENT: Head is normocephalic, atraumatic. HEENT examination shows pinkish pale conjunctivae. Anicteric sclerae. No oropharyngeal lesion. NECK: No neck rigidity. Poor hygiene noted. CHEST: Kyphosis. CARDIOPULMONARY: S1, S2, regular rhythm. Questionable soft systolic murmur at the left sternal border. Right second intercostal space, left second intercostal space. LUNGS: Shows positive rhonchi, wheezing, crackles, creps bilaterally. ABDOMEN: Abdomen: Soft, protuberant. Positive bowel sounds. No palpable hepatosplenomegaly noted. GENITALIA: Male. RECTAL: Deferred. EXTREMITIES: Shows no pitting edema. No calf tenderness. No Lanny's signs. Trace swelling of the lower extremity noted. MUSCULOSKELETAL: Shows a body mass index of 24.4. Motor strength is 5/5 in upper and lower extremity. Gait examination is not tested. VASCULAR: Palpable pulses. DIAGNOSTICS: On 04/05/2018, WBC 8.9, hemoglobin and hematocrit 9.0 and 31.3, platelets 319. Granulocytes 75% segs. PT is 12.2, PTT 25.8. VBG shows a lactate of 1.5. Sodium 37, potassium 3.8, chloride 97, CO2 31, anion gap 13, BUN 14, creatinine 1.3, GFR greater than 60, glucose 339, calcium 8.9, magnesium 2.1, LDH 583. Troponin 0.01. BNP 74. Blood cultures were sent. The patient had a chest x-ray done in the emergency room which shows no abnormalities. EKG done in the emergency room shows sinus rhythm, sinus tachycardia. No ST elevation depression noted. The patient was seen in the emergency room by the ER physician, district medical examiner. The patient was treated in the emergency room with IV steroids, bronchodilator. The patient was given Solu-Medrol 125, DuoNeb nebulizer was given. The patient was stabilized and admitted for COPD exacerbation. IMPRESSION AND PLAN: 1. Acute exacerbation of chronic obstructive pulmonary disease. 2. Severe noncompliance and severe poor compliance. 3. History of intravenous drug use, history of nicotine and alcohol dependence. 4. Hypertension. 5. Anemia. 6. Granulocytosis. 7. Uncontrolled diabetes mellitus with hyperglycemia. 8. Sinus tachycardia. 9. Questionable anemia of chronic disease secondary to Human immunodeficiency virus and acquired immunodeficiency syndrome. 10. Acute exacerbation of chronic obstructive pulmonary disease and bronchitis. 11. History of Human immunodeficiency virus and acquired immunodeficiency syndrome on HAART therapy. 12. History of constipation. 13. History of chronic pancreatitis. 14. History of diabetic neuropathy. 15. History of advanced human immunodeficiency virus and acquired immunodeficiency syndrome. 16. Anxiety disorder. 17. Questionable diastolic dysfunction with diastolic right-sided congestive heart failure. PLAN: At this time, the patient is to be admitted to [facility]. Serial labs ordered. The patient has been ordered hepatitis serologies, , IV iron studies ordered, blood cultures, urine cultures, sputum cultures all ordered. Current consultation will be ordered, Gastroenterology, Infectious Disease, diabetic education, TCU evaluation ordered. The patient is started on Xopenex nebulizer and Mucomyst nebulizer every 6 hours [id number]. The patient is started on Colace 100 mg three times a day. The patient is started on doxycycline 100 mg IV every 12. The patient is started on Drisdol 50,000 weekly. The patient is started on Humalog medium dose sliding scale coverage a.c. and at bedtime. NPH 10 units with breakfast and dinner. The patient is started on Isentress 600 twice a day. The patient is started on Lipitor 40 mg daily, MiraLax 17 g twice a day, Neurontin 3 units three times a day, Pancrease 5000 units three times a day, Pepcid 20 mg daily, Protonix 40 mg daily, Rocephin 2 g IV daily, Singulair 10 mg at bedtime, IV fluid 0.9 normal saline at 80 mL an hour. The patient is started on Solu-Medrol 40 mg IV every 8, Tessalon Perles 200 three times a day, Tylenol p.o. suppository every 6 p.r.n., Xanax 0.25 t.i.d. p.r.n., Xopenex nebulizer 0.63 mg every 6 hours, Ziagen 300 twice a day, Zofran 4 mg IV every 4 p.r.n. Chest PT, incentive spirometry, oxygen 2 liters, diabetic diet, BOUBACAR stockings, SCDs, physical therapy, occupational therapy, stool for occult blood has been ordered. At present, the patient is to be admitted to [facility] for further management. The patient's further management will be dependent upon the patient's clinical condition, hemodynamic status and as per the patient response to therapeutic intervention, as per the patient's diagnostic test results and as per recommendation and evaluation by all the subspecialty involved in the care of the patient. The patient was advised and counseled about cessation of smoking, strict compliance with medications and physician recommendation, but the patient does not appear to be tested in those recommendation and continued to watch television while I was advising the patient about his condition. I have tried my best to keep the patient's attention regarding the counseling session, but the patient is least interested. Dictated and electronically signed, not read. Suraj Ferreira MD MTDD
--- NOTE | 2018-04-07 01:08 | PN ---
DATE: 04/06/2018 SUBJECTIVE: The patient is seen in room 573, bed 3. The patient is sitting up in the bed. The patient is watching TV. The patient is awake, responsive. The patient does not appear to be in any distress, but complains of shortness of breath and coughing. Overnight nurse's notes were reviewed. The patient refused medication. The patient refused blood drawing. The patient refused IV placement. The patient refused medication. The patient refused fingerstick blood sugar testing. PHYSICAL EXAMINATION: VITAL SIGNS: T-max is 98.2 to 97.9; heart rates 83, 76, 75; blood pressures 126/80, 145/69, 145/69; respirations 18 to 20; and O2 sat 98% to 100%. HEENT: Head examination: Normocephalic and atraumatic. HEENT examination shows pinkish pale conjunctivae, anicteric sclerae, dry oral mucosa. NECK: No neck rigidity. CHEST EXAMINATION: Kyphosis. LUNGS EXAMINATION: Shows positive rhonchi, occasional wheezing noted bilaterally. CARDIOVASCULAR EXAMINATION: S1 and S2. Regular rhythm. Questionable soft systolic murmur, left sternal border, right second intercostal space, left second intercostal space. ABDOMEN: Soft. Positive bowel sounds. No palpable hepatosplenomegaly. GENITALIA: Male. RECTAL EXAMINATION: Deferred. EXTREMITIES: Show trace swelling of the lower extremity. MUSCULOSKELETAL EXAMINATION: Shows a body mass index of 24. NEUROLOGIC: The patient is alert, awake, responsive. He is able to move upper and lower extremities without assistance. Gait examination is not tested. LABORATORY DATA: Diagnostics from 04/06/2018: WBC 5.5, hemoglobin and hematocrit 8 and 28, platelets 309, granulocytes 94% segs. Sodium 135, potassium 4.7, chloride 99, CO2 of 30, anion gap 11, BUN 20, creatinine 1.1, GFR greater than 60, glucose 284, hemoglobin A1c 10.6, uric acid 5, calcium 9.2, phosphorus 2.8, magnesium 2.3. Iron 17, TIBC 301, saturation 6, ferritin is 47. Cholesterol 216, LDL 131, HDL 67. Vitamin D 25-hydroxy less than 12.8. T4 is elevated at 11.1. TSH is low at 0.12. Procalcitonin level is 0.21. Fingerstick blood sugars are 490, 311, 250, 133. Urinalysis: Trace protein, 500 glucose. Stool occult blood positive. Urine drug screen positive for opiates. RPR nonreactive. Hepatitis A and B negative. Hepatitis C is reactive. Blood cultures, no growth. Chest x-ray and thyroid ultrasound reviewed. The patient is seen by Infectious Disease and Gastroenterology. Their recommendations were reviewed. IMPRESSION AND PLAN: 1. Acute exacerbation of chronic obstructive pulmonary disease with asthmatic bronchitis and symptomatic acute exacerbation of chronic obstructive pulmonary disease exacerbation with asthmatic bronchitis. 2. Extremely poor compliance and noncompliance. 3. Normocytic anemia with decreasing hemoglobin and hematocrit. 4. Granulocytosis. 5. Uncontrolled diabetes mellitus with hyperglycemia and hemoglobin A1c of 10.6. 6. Possible iron deficiency. 7. Hyperlipidemia with elevated low-density lipoprotein. 8. Questionable subclinical hyperthyroidism. 9. Hypovitaminosis D. 10. Proteinuria, glycosuria. 11. Fecal occult blood positive versus questionable gastrointestinal bleeding. 12. Reactive hepatitis C antibody. 13. Bilateral thyroid nodule with dominant nodule of the lower pole of the right lobe 1.4 cm with hypoechoic halo with hyperemia. 14. Bilateral thyroid lobe nodule. 15. Anemia of chronic disease. 16. Advanced chronic obstructive pulmonary disease. 17. Human immunodeficiency virus/acquired immunodeficiency syndrome. 18. Hepatitis C. 19. Constipation. 20. Uncontrolled diabetes mellitus. 21. History of hyperlipidemia, hypertension, history of diabetic neuropathy, insulin-requiring diabetes mellitus, history of hepatitis C, history of pancreatitis, history of bilateral cataracts, history of left facial fractures, history of hyperuricemia, history of arthritis, history of gait dysfunction, history of history of nicotine addiction, history of chronic obstructive pulmonary disease, history of sleep apnea, history of human immunodeficiency/acquired immunodeficiency syndrome, history of anemia, intermittent blood transfusion requiring, history of hepatitis C, history of intravenous drug use, past medical history of poor compliance and noncompliance, history of chronic obstructive pulmonary disease exacerbation, history of right upper lobe pulmonary nodule, history of signing out against medical advice, history of poor compliance, history of anxiety disorder, history of degenerative joint disease, history of advanced chronic obstructive pulmonary disease, history of poor compliance and noncompliance, history of multiple episodes of chronic obstructive pulmonary disease exacerbation, history of hepatic steatosis and fatty liver, history of pancreatic calcification versus pancreatic cyst adenoma, history of pancreatic head cyst, history of poor compliance and noncompliance, history of left ventricular ejection fraction of 70%, history of mild mitral regurgitation, history of mild pulmonary hypertension with mild tricuspid regurgitation, history of right ventricular systolic pressure of 30-40 mmHg, history of right upper extremity peripherally inserted central catheter line placement, history of poor compliance and noncompliance, history of hypertension, hyperlipidemia, human immunodeficiency virus/acute immunodeficiency syndrome, history of major depressive disorder, history of anxiety disorder, history of opiate use disorder. PLAN: At this time, the patient has been ordered transfusion of 2 units of PRBC. The patient is awaiting further recommendations by Gastroenterology. The patient has been ordered serial labs. The patient has been ordered HIV-1 and HIV-2 antigen antibody fourth generation, transferrin, HIV RNA quantification, lymphocyte cells. The patient has been ordered Fungitell B-D glucan assay. Blood cultures and urine cultures ordered. The patient's case is referred for diabetic education, TCU evaluation. Transfusion of 2 units of PRBC ordered. The patient has been ordered Mucomyst nebulizer 20% 4 mL every 6 hours, Bactrim DS one tablet on Thursday, Thursday and Thursday, Bactroban cream to the affected area twice a day, Colace 100 mg three times a day, doxycycline 100 mg IV every 12 hours, Drisdol 50,000 units weekly, Ecotrin 81 mg daily, Epivir 300 mg daily, Humalog medium dose sliding scale coverage with NPH 10 units with breakfast and dinner. The patient is started on iron 1200 mg IV daily for iron-deficiency. The patient is on Isentress 600 mg twice a day, Lipitor 40 mg daily. The patient's Lovenox and aspirin will be discontinued because of stool occult blood positive. The patient is on MiraLax 17 g twice a day, Neurontin 300 three times a day, Pancreaze 5000 units three times a day, Pepcid 20 mg daily, Protonix 40 mg daily, Rocephin 2 g IV daily, Singulair 10 mg at bedtime, IV fluid 0.9 normal saline at 80 mL an hour, Solu-Medrol 40 mg IV every 12 hours, Tessalon Perles 200 mg three times a day, Tylenol 650 mg p.o. or suppository every 6 hours p.r.n., Xanax 0.25 mg t.i.d. p.r.n., Xopenex nebulizer 0.63 mg every 6 hours, Ziagen 300 mg twice a day, Zofran 4 mg IV every 4 hours p.r.n., chest PT every 6 hours, incentive spirometry every 2 hours, oxygen 2 L continuous consistent with carbohydrate diet, BOUBACAR stockings, SCDs. Fingerstick blood sugar before meals and at bedtime. Out of bed. Physical therapy. Occupational therapy. Transfusion of 2 units of PRBC ordered. The patient has been ordered to have a midline PICC line placement secondary to poor access. The patient has been updated about his condition, diagnoses, treatment plan, management plan at length, and all questions concerned answered At present, the patient's prognosis is guarded to poor because of the patient's underlying multiple complicated medical problems and history of noncompliance and poor compliance. The patient has been ordered stool for occult blood. Repeat stool for occult blood has been ordered. The patient has been ordered transfusion of 2 units of PRBC. The patient has been updated about his condition, diagnoses, treatment plan, treatment options which he acknowledged understand. Dictated and electronically signed, not read. Suraj Ferreira MD
[2018-04-07] MEDS: Levalbuterol 0.63 MG/3 ML Inhal Soln UD IH SCH ×4 (01:25→21:04)
[2018-04-07] MEDS: Acetylcysteine 20% Inhal Soln (4ml) IH SCH ×4 (01:25→21:04)
[2018-04-07] MEDS: Pantoprazole 40 mg EC Tab PO SCH (06:38)
[2018-04-07 07:59] LABS: EOS % 0.3 % (1.5-5.0); GRAN # 11.69 (1.4-6.5); GRAN % 91.5 % (50.0-68.0); HEMOGLOBIN 7.7 g/dL (14.0-18.0); LYMPH # 0.7 (1.2-3.4); LYMPH % 5.5 % (22.0-35.0); MEAN CORPUSCULAR HEMOGLOBIN 22.2 pg (25.0-35.0); MEAN CORPUSCULAR HGB CONC 28.1 g/dl (31.0-37.0); MEAN PLATELET VOLUME 10.2 fl (7.0-11.0); MONO # 0.3 (0.1-0.6); MONO % 2.7 % (1.0-6.0); RBC 3.47 10^6/uL (3.5-6.1); WHITE BLOOD COUNT 12.8 10^3/uL (4.5-11.0)
[2018-04-07 08:07] LABS: ALBUMIN 3.3 g/dL (3.0-4.8); ALT/SGPT 23 U/L (7-56); AST/SGOT 11 U/L (17-59); BILIRUBIN,DIRECT 0.2 mg/dL (0.0-0.4); BLOOD UREA NITROGEN 20 mg/dL (7-21); GFR NON-AFRICAN AMERICAN > 60
--- NOTE | 2018-04-07 08:25 | CP.PCM.PN ---
<Millicent Mccoy - Last Filed: 04/07/18 13:45> Subjective - Date & Time of Evaluation Date of Evaluation: 04/07/18 Time of Evaluation: 08:24 - Subjective Subjective: ID progress note PGY-[address] Tracy Pt is agitated because he is NPO. He questioned the dosage of isentress. No more diarrhea. Cough is better Objective - Vital Signs/Intake and Output Vital Signs (last 24 hours): Temp Pulse Resp BP Pulse Ox 97.6 F 86 20 127/81 97 04/06/18 23:13 04/06/18 23:13 04/06/18 23:13 04/06/18 23:13 04/06/18 23:13 Intake and Output: 04/07/18 04/07/18 06:59 18:59 Intake Total 240 Output Total 900 Balance -660 - Medications Medications: Current Medications Abacavir Sulfate (Ziagen) 300 mg PO BID [facility]; Protocol Last Admin: 04/06/18 19:45 Dose: 300 mg Acetaminophen (Tylenol 325mg Tab) 650 mg PO Q6 PRN PRN Reason: TEMP>=99.5F Acetaminophen (Tylenol 650 Mg Supp) 650 mg RC Q6H PRN PRN Reason: TEMP>=99.5F Acetaminophen (Tylenol 650 Mg Supp) 650 mg RC Q6H PRN PRN Reason: Headache Acetaminophen (Tylenol 325mg Tab) 650 mg PO Q6 PRN PRN Reason: Headache Acetylcysteine (Acetylcysteine 20%) 4 ml IH [id number] [facility] Last Admin: 04/07/18 01:25 Dose: Not Given Alprazolam (Xanax) 0.25 mg PO TID PRN; Protocol PRN Reason: Anxiety Stop: 04/12/18 21:07 Last Admin: 04/06/18 19:44 Dose: 0.25 mg Amylase (Pancrease [id number] [id number] U) 5,000 unit PO TID [facility] Last Admin: 04/06/18 19:27 Dose: 5,000 unit Arformoterol Tartrate (Brovana) 15 mcg IH [id number] [facility] Atorvastatin Calcium (Lipitor) 40 mg PO DIN [facility] Last Admin: 04/06/18 19:32 Dose: 40 mg Benzonatate (Tessalon Perles) 200 mg PO TID [facility] Last Admin: 04/06/18 19:26 Dose: 200 mg Budesonide (Pulmicort Respules) 0.5 mg IH [id number] [facility] Dextrose (Dextrose 50% Inj) 0 ml IV STAT PRN; Protocol PRN Reason: Hypoglycemia Protocol Docusate Sodium (Colace) 100 mg PO TID [facility] Last Admin: 04/06/18 19:29 Dose: 100 mg Ergocalciferol (Drisdol 50,000 Intl Units Cap) 1 cap PO Q7D [facility] Famotidine (Pepcid) 20 mg PO DAILY [facility] Last Admin: 04/06/18 09:37 Dose: 20 mg Gabapentin (Neurontin) 300 mg PO TID [facility]; Protocol Last Admin: 04/06/18 19:27 Dose: 300 mg Doxycycline Hyclate 100 mg/ (Sodium Chloride) 100 mls @ 100 mls/hr IVPB Q12 [facility]; Protocol Last Admin: 04/06/18 21:40 Dose: 100 mls/hr Ceftriaxone Sodium (Rocephin 2 Gm Ivpb) 2 gm in 100 mls @ 100 mls/hr IVPB DAILY [facility]; Protocol Last Admin: 04/06/18 10:43 Dose: 100 mls/hr Sodium Chloride (Sodium Chloride 0.9%) 1,000 mls @ 80 mls/hr IV .[id number] [facility] Last Admin: 04/06/18 15:49 Dose: 80 mls/hr Dextrose (Dextrose 5% In Water 1000 Ml) 1,000 mls @ 0 mls/hr IV .Q0M PRN; Protocol PRN Reason: Hypoglycemia Protocol Iron Sucrose 200 mg/ Sodium (Chloride) 110 mls @ 110 mls/hr IVPB DAILY [facility] Stop: 04/10/18 10:59 Last Admin: 04/06/18 15:44 Dose: 110 mls/hr Insulin Human Lispro (Humalog Med) 0 units SC ACHS [facility]; Protocol Last Admin: 04/06/18 22:22 Dose: 8 units Insulin Human NPH (Humulin N) 15 units SC ACBD [facility] Lamivudine (Epivir) 300 mg PO DAILY [facility]; Protocol Levalbuterol HCl (Xopenex) 0.63 mg IH [id number] [facility] Last Admin: 04/07/18 01:25 Dose: Not Given Methylprednisolone (Solu-Medrol) 40 mg IVP Q12H [facility] Last Admin: 04/06/18 19:33 Dose: 40 mg Montelukast Sodium (Singulair) 10 mg PO HS [facility] Last Admin: 04/06/18 21:45 Dose: 10 mg Mupirocin (Bactroban Ointment) 0 gm TOP BID [facility] Last Admin: 04/06/18 19:29 Dose: 1 appl Ondansetron HCl (Zofran Inj) 4 mg IVP Q4H PRN PRN Reason: Nausea/Vomiting Pantoprazole Sodium (Protonix Ec Tab) 40 mg PO 0600 [facility] Last Admin: 04/07/18 06:38 Dose: 40 mg Polyethylene Glycol (Miralax) 17 gm PO BID [facility] Last Admin: 04/06/18 19:06 Dose: Not Given Raltegravir (Isentress) 600 mg PO BID [facility] Last Admin: 04/06/18 19:28 Dose: 600 mg Trimethoprim/Sulfamethoxazole (Bactrim Ds Tab) 1 tab PO [id number]; Protocol - Labs Labs: 04/07/18 07:30 04/07/18 07:30 PT 12.2 SECONDS (9.4-12.5) 04/05/18 18:44 INR 1.07 04/05/18 18:44 APTT 25.8 Seconds (25.1-36.5) 04/05/18 18:44 - Constitutional Appears: No Acute Distress - Head Exam Head Exam: ATRAUMATIC, NORMAL INSPECTION, NORMOCEPHALIC - Eye Exam Eye Exam: EOMI, Normal appearance, PERRL. absent: Scleral icterus Pupil Exam: NORMAL ACCOMODATION - ENT Exam ENT Exam: Mucous Membranes Moist - Neck Exam Additional comments: supple - Respiratory Exam Respiratory Exam: Clear to Ausculation Bilateral, Rhonchi, NORMAL BREATHING PAT TERN Additional comments: Able to raise his voice and speak without shortness of breath completing multiple sentences - Cardiovascular Exam Cardiovascular Exam: REGULAR RHYTHM, +S1, +S2 - GI/Abdominal Exam GI & Abdominal Exam: Soft, Normal Bowel Sounds. absent: Guarding, Rigid, Tenderness - Back Exam Back Exam: absent: CVA tenderness (L), CVA tenderness (R) - Neurological Exam Neurological Exam: Alert, Awake, Oriented x3 - Psychiatric Exam Psychiatric exam: Agitated - Skin Skin Exam: Dry, Warm Assessment and Plan - Assessment and Plan (Free Text) Plan: Mr Gao, 63 AAM with PMH of HIV with last CD4 of 87 on 02/13/2018 on dual- HAART therapy, COPD on 2L home oxygen, HTN, DM, untreated hepatitis C, and chronic pancreatitis admitted for COPD exacerbation. 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 pt ate today. 1u pRBC today. - Request midline - follow CD4 count, HIV viral load - follow on blood culture, sputum culture, fungitell-glucan, procalc. LDH normal - Continue triple HAART: lamivudine 300 daily, Abacavir 300bid, and Raltegravir 400bid - Bactrim DS MWF for PCP prophylaxis - Continue ceftriaxone + doxy (day2) for bacterial bronchitis for now. Trend clinical course - hold laxative - Outpatient FNA thyroid nodules Imaging/culture: RPR, Hep neg Urine culture: negative Blood culture (04/05): neg x 1d Blood culture (04/06): neg x 1d CXR (04/06) No active disease Thyroid U/S (04/06) 3 nodules, hyperemic, 1.4cm largest Stool occult blood pos UDS (+) opiate. No opioids given during this hospital S/R/D/w Dr Tracy <Wilfredo Tracy S - Last Filed: 04/07/18 16:27> Objective - Vital Signs/Intake and Output Vital Signs (last 24 hours): Temp Pulse Resp BP Pulse Ox 98.4 F 75 18 135/86 100 04/07/18 14:10 04/07/18 14:10 04/07/18 14:10 04/07/18 14:10 04/07/18 13:52 Intake and Output: 04/07/18 04/07/18 06:59 18:59 Intake Total 240 370 Output Total 900 Balance -660 370 - Medications Medications: Current Medications Abacavir Sulfate (Ziagen) 300 mg PO BID [facility]; Protocol Last Admin: 04/07/18 10:20 Dose: Not Given Acetaminophen (Tylenol 325mg Tab) 650 mg PO Q6 PRN PRN Reason: TEMP>=99.5F Acetaminophen (Tylenol 650 Mg Supp) 650 mg RC Q6H PRN PRN Reason: TEMP>=99.5F Acetaminophen (Tylenol 650 Mg Supp) 650 mg RC Q6H PRN PRN Reason: Headache Acetaminophen (Tylenol 325mg Tab) 650 mg PO Q6 PRN PRN Reason: Headache Acetylcysteine (Acetylcysteine 20%) 4 ml IH [id number] [facility] Last Admin: 04/07/18 13:57 Dose: Not Given Alprazolam (Xanax) 0.25 mg PO TID PRN; Protocol PRN Reason: Anxiety Stop: 04/12/18 21:07 Last Admin: 04/07/18 09:33 Dose: 0.25 mg Amylase (Pancrease [id number] U-5000 [id number] U) 5,000 unit PO TID [facility] Last Admin: 04/07/18 15:08 Dose: 5,000 unit Arformoterol Tartrate (Brovana) 15 mcg IH [id number] [facility] Last Admin: 04/07/18 08:49 Dose: Not Given Atorvastatin Calcium (Lipitor) 40 mg PO DIN [facility] Last Admin: 04/06/18 19:32 Dose: 40 mg Benzonatate (Tessalon Perles) 200 mg PO TID [facility] Last Admin: 04/07/18 15:08 Dose: 200 mg Budesonide (Pulmicort Respules) 0.5 mg IH [id number] [facility] Last Admin: 04/07/18 08:49 Dose: Not Given Dextrose (Dextrose 50% Inj) 0 ml IV STAT PRN; Protocol PRN Reason: Hypoglycemia Protocol Docusate Sodium (Colace) 100 mg PO TID [facility] Last Admin: 04/07/18 15:08 Dose: 100 mg Doxycycline Hyclate (Doryx) 100 mg PO Q12 [facility]; Protocol Last Admin: 04/07/18 15:08 Dose: 100 mg Ergocalciferol (Drisdol 50,000 Intl Units Cap) 1 cap PO Q7D [facility] Famotidine (Pepcid) 20 mg PO DAILY [facility] Last Admin: 04/07/18 10:20 Dose: Not Given Gabapentin (Neurontin) 300 mg PO TID [facility]; Protocol Last Admin: 04/07/18 15:08 Dose: 300 mg Ceftriaxone Sodium (Rocephin 2 Gm Ivpb) 2 gm in 100 mls @ 100 mls/hr IVPB DAILY [facility]; Protocol Last Admin: 04/06/18 10:43 Dose: 100 mls/hr Sodium Chloride (Sodium Chloride 0.9%) 1,000 mls @ 80 mls/hr IV .[id number] [facility] Last Admin: 04/06/18 15:49 Dose: 80 mls/hr Dextrose (Dextrose 5% In Water 1000 Ml) 1,000 mls @ 0 mls/hr IV .Q0M PRN; Protocol PRN Reason: Hypoglycemia Protocol Iron Sucrose 200 mg/ Sodium (Chloride) 110 mls @ 110 mls/hr IVPB DAILY [facility] Stop: 04/10/18 10:59 Last Admin: 04/06/18 15:44 Dose: 110 mls/hr Insulin Human Lispro (Humalog Med) 0 units SC ACHS [facility]; Protocol Last Admin: 04/07/18 12:23 Dose: Not Given Insulin Human NPH (Humulin N) 15 units SC ACBD [facility] Last Admin: 04/07/18 08:39 Dose: Not Given Lamivudine (Epivir) 300 mg PO DAILY [facility]; Protocol Last Admin: 04/07/18 15:19 Dose: Not Given Levalbuterol HCl (Xopenex) 0.63 mg IH [id number] [facility] Last Admin: 04/07/18 13:58 Dose: Not Given Methylprednisolone (Solu-Medrol) 40 mg IVP Q12H [facility] Last Admin: 04/07/18 09:33 Dose: 40 mg Montelukast Sodium (Singulair) 10 mg PO HS [facility] Last Admin: 04/06/18 21:45 Dose: 10 mg Mupirocin (Bactroban Ointment) 0 gm TOP BID [facility] Last Admin: 04/07/18 14:01 Dose: Not Given Ondansetron HCl (Zofran Inj) 4 mg IVP Q4H PRN PRN Reason: Nausea/Vomiting Pantoprazole Sodium (Protonix Ec Tab) 40 mg PO 0600 [facility] Last Admin: 04/07/18 06:38 Dose: 40 mg Polyethylene Glycol (Miralax) 17 gm PO BID [facility] Last Admin: 04/07/18 10:20 Dose: Not Given Raltegravir (Isentress) 400 mg PO BID [facility]; Protocol Trimethoprim/Sulfamethoxazole (Bactrim Ds Tab) 1 tab PO MWF [facility]; Protocol Last Admin: 04/07/18 15:19 Dose: 1 tab - Labs Labs: 04/07/18 07:30 04/07/18 07:30 PT 12.2 SECONDS (9.4-12.5) 04/05/18 18:44 INR 1.07 04/05/18 18:44 APTT 25.8 Seconds (25.1-36.5) 04/05/18 18:44 Assessment and Plan - Assessment and Plan (Free Text) Plan: Infectious diseases Attending Physician Attestation Patient seen and examined, discussed with medical staff credentialing coordinator. I have reviewed the patient's history of present illness, past medical, social, personal and family histories, pertinent physical exam findings, course so far in this hospital admission, pertinent laboratory and imaging results. I agree with the above findings, assessment and plan. In addition, continue Rocephin and Doxcycyline for acute cOPD exacerbation. Continue cART and PJP prophylaxis for HIV/AIDS. Patient is refusing biopsy of lung mass.
[2018-04-07] MEDS: Insulin Lispro (humaLOG) MEDIUM Coverage SC SCH ×4 (08:39→21:52)
[2018-04-07] MEDS: Insulin Human NPH 1 UNITS/0.01 ML SC SCH ×2 (08:39→17:12)
[2018-04-07] MEDS: Budesonide 0.5 mg/2 ml Inhal Susp UD IH SCH ×2 (08:49→21:04)
[2018-04-07] MEDS: Arformoterol 15 mcg/2 ml Inh Sol IH SCH ×2 (08:49→21:04)
[2018-04-07] MEDS: MethylPREDNISolone 40 mg Vial IVP SCH ×2 (09:33→20:53)
[2018-04-07] MEDS: Tmp-Smz 800 mg-160 mg DS Tab PO SCH ×2 (10:19→15:19)
[2018-04-07] MEDS: POLYETHYLENE GLYCOL 3350 17 GM/Dose PACKET PO SCH ×3 (10:20→17:18)
[2018-04-07] MEDS: Amylase/Lipase/Protease 5,000 Units ECC PO SCH ×4 (10:20→17:18)
--- NOTE | 2018-04-07 11:10 | PN ---
DATE: 04/07/2018 LOCATION: The patient is in room 573, bed 3. Overnight nurse's notes were reviewed. The patient was not 100% compliant with medications and recommendation. The patient was not compliant. The patient did not get blood transfusion for unknown reason, which was ordered yesterday. The patient does have history of severe noncompliance and poor compliance. PHYSICAL EXAMINATION: VITAL SIGNS: T-max 97.6, heart rate 86, blood pressure 127/81, respirations 20, O2 sat 97% on oxygen supplementation. GENERAL: The patient is sitting. HEAD: Normocephalic, atraumatic. HEENT examination shows pinkish pale conjunctivae. No oropharyngeal lesion. NECK: No neck rigidity. CHEST: Kyphosis. LUNGS: Shows positive rhonchi and wheezing. CARDIOVASCULAR: S1, S2, regular rhythm. Questionable soft systolic murmur left sternal border, right second intercostal space, left second intercostal space. ABDOMEN: Soft. Positive bowel sounds. No palpable hepatosplenomegaly noted. GENITALIA: Male. RECTAL: Deferred. SKIN: The patient was noted to have some rash on the scrotum which appears like the patient has been scratching. EXTREMITIES: Lower extremity shows trace swelling. No pitting edema of the lower extremities. MUSCULOSKELETAL: As per the body mass index. NEUROLOGIC: The patient is alert, awake, responsive, is able to move upper and lower extremities without assistance. Gait examination is not tested. DIAGNOSTICS: Fingerstick blood sugar 231, 356, 133, 250. Fructosamine 381, hemoglobin A1c 10.6. Iron is 17, saturation is 6. Today's CBC shows a WBC of 12.8, hemoglobin/hematocrit has dropped to 7.7, 27.4, platelet 265. Granulocytes 91% segs. Sodium 139, potassium 4.1, chloride 108, CO2 26, BUN 20, creatinine 0.9, glucose 264, calcium 9.0, phosphorus 2.7, magnesium 2.3. IMPRESSION AND PLAN: 1. Acute exacerbation of chronic obstructive pulmonary disease with bronchospasm, wheezing, slow resolving. 2. Severe noncompliance and severe poor compliance. 3. Uncontrolled diabetes mellitus with hyperglycemia and elevated hemoglobin A1c of 10.6 and elevated fructosamine of 381. 4. Possible iron-deficiency anemia. 5. Questionable gastrointestinal bleeding with fecal occult blood positive. 6. Leukocytosis. 7. Normocytic anemia with decreasing hemoglobin/hematocrit. 8. Granulocytosis. 9. Possible steroid-induced leukocytosis. 10. Hyperglycemia. 11. History of advanced acquired immunodeficiency syndrome and human immunodeficiency virus. 12. History of hepatitis C. 13. History of intravenous drug use. 14. History of hypertension. 15. History of hyperlipidemia with elevated LDL. 16. Sinus tachycardia. 17. Severe noncompliance and poor compliance. 18. Gait dysfunction. 19. His degenerative joint disease. 20. History of hepatitis C. 21. History of pulmonary nodule, refusing biopsy. 22. Multiple bilateral thyroid nodule with a dominant right thyroid lobe nodule. 23. Deconditioning. PLAN: At this time, the patient's insulin has been adjusted with a basal insulin increased to 15 units with breakfast and dinner. The patient has been ordered transfusion of PRBC 2 units today each over 3 hours. The patient will be continued on GI prophylaxis and DVT prophylaxis. The patient has been stopped. The patient's anticoagulation for DVT has been stopped. The patient was seen by Gastroenterology, was advised EGD. If the patient agrees, the patient will be continued on broad-spectrum IV antibiotics as per Infectious Disease recommendation. The patient will be continued on his AIDS, HAART therapy. The patient will be continued on nebulizer treatment including Mucomyst and Xopenex nebulizer treatment and also Brovana and Pulmicort nebulizer treatment. The patient has been ordered chest PT, incentive spirometry. SCDs and BOUBACAR stockings ordered. The patient has been extensively counseled about strict compliance with medication, diet, physician and nurses recommendation. The patient will be continued on the therapeutic intervention as per the MAR of today. The patient's further management will be dependent upon the patient's clinical condition, hemodynamic status and as per the patient response to therapeutic intervention as per the patient's diagnostic test results and as per recommendation by all the physician involved in the care of the patient. The patient's overall prognosis is guarded to poor secondary to multiple comorbidities, decompensation and noncompliance. Dictated and electronically signed, not read. Suraj Ferreira MD
--- NOTE | 2018-04-07 13:03 | PN ---
DATE: 04/07/2018 SUBJECTIVE: The patient was made n.p.o. for endoscopy for anemia this morning. I specifically spoke with the patient's nurse this morning to confirm that the patient has be made n.p.o. Despite this, the patient somehow received a breakfast tray at eight. We will postpone his endoscopy for another day. Jac Yin MD
[2018-04-07 13:05] VITALS: RESP 18
--- NOTE | 2018-04-07 13:26 | CP.PCM.APN ---
Subjective - Date & Time of Evaluation Date of Evaluation: 04/07/18 Time of Evaluation: 09:10 - Subjective Subjective: Pt seen at bedside. Claims breathing is better. Refused to be examined. He is no acute distress. Objective - Vital Signs/Intake and Output Vital Signs (last 24 hours): Temp Pulse Resp BP Pulse Ox 98.4 F 78 18 119/76 98 04/07/18 13:04 04/07/18 13:04 04/07/18 13:04 04/07/18 13:04 04/07/18 06:00 Intake and Output: 04/07/18 04/07/18 06:59 18:59 Intake Total 240 345 Output Total 900 Balance -660 345 - Medications Medications: Current Medications Abacavir Sulfate (Ziagen) 300 mg PO BID [facility]; Protocol Last Admin: 04/07/18 10:20 Dose: Not Given Acetaminophen (Tylenol 325mg Tab) 650 mg PO Q6 PRN PRN Reason: TEMP>=99.5F Acetaminophen (Tylenol 650 Mg Supp) 650 mg RC Q6H PRN PRN Reason: TEMP>=99.5F Acetaminophen (Tylenol 650 Mg Supp) 650 mg RC Q6H PRN PRN Reason: Headache Acetaminophen (Tylenol 325mg Tab) 650 mg PO Q6 PRN PRN Reason: Headache Acetylcysteine (Acetylcysteine 20%) 4 ml IH [id number] [facility] Last Admin: 04/07/18 08:49 Dose: Not Given Alprazolam (Xanax) 0.25 mg PO TID PRN; Protocol PRN Reason: Anxiety Stop: 04/12/18 21:07 Last Admin: 04/07/18 09:33 Dose: 0.25 mg Amylase (Pancrease 82010 U-5000 [id number] U) 5,000 unit PO TID [facility] Last Admin: 04/07/18 10:20 Dose: Not Given Arformoterol Tartrate (Brovana) 15 mcg IH [id number] [facility] Last Admin: 04/07/18 08:49 Dose: Not Given Atorvastatin Calcium (Lipitor) 40 mg PO DIN [facility] Last Admin: 04/06/18 19:32 Dose: 40 mg Benzonatate (Tessalon Perles) 200 mg PO TID [facility] Last Admin: 04/07/18 10:20 Dose: Not Given Budesonide (Pulmicort Respules) 0.5 mg IH [id number] [facility] Last Admin: 04/07/18 08:49 Dose: Not Given Dextrose (Dextrose 50% Inj) 0 ml IV STAT PRN; Protocol PRN Reason: Hypoglycemia Protocol Docusate Sodium (Colace) 100 mg PO TID [facility] Last Admin: 04/07/18 10:19 Dose: Not Given Ergocalciferol (Drisdol 50,000 Intl Units Cap) 1 cap PO Q7D [facility] Famotidine (Pepcid) 20 mg PO DAILY [facility] Last Admin: 04/07/18 10:20 Dose: Not Given Gabapentin (Neurontin) 300 mg PO TID [facility]; Protocol Last Admin: 04/07/18 10:20 Dose: Not Given Doxycycline Hyclate 100 mg/ (Sodium Chloride) 100 mls @ 100 mls/hr IVPB Q12 [facility]; Protocol Last Admin: 04/06/18 21:40 Dose: 100 mls/hr Ceftriaxone Sodium (Rocephin 2 Gm Ivpb) 2 gm in 100 mls @ 100 mls/hr IVPB DAILY [facility]; Protocol Last Admin: 04/06/18 10:43 Dose: 100 mls/hr Sodium Chloride (Sodium Chloride 0.9%) 1,000 mls @ 80 mls/hr IV .[id number] [facility] Last Admin: 04/06/18 15:49 Dose: 80 mls/hr Dextrose (Dextrose 5% In Water 1000 Ml) 1,000 mls @ 0 mls/hr IV .Q0M PRN; Protocol PRN Reason: Hypoglycemia Protocol Iron Sucrose 200 mg/ Sodium (Chloride) 110 mls @ 110 mls/hr IVPB DAILY [facility] Stop: 04/10/18 10:59 Last Admin: 04/06/18 15:44 Dose: 110 mls/hr Insulin Human Lispro (Humalog Med) 0 units SC ACHS [facility]; Protocol Last Admin: 04/07/18 12:23 Dose: Not Given Insulin Human NPH (Humulin N) 15 units SC ACBD [facility] Last Admin: 04/07/18 08:39 Dose: Not Given Lamivudine (Epivir) 300 mg PO DAILY [facility]; Protocol Levalbuterol HCl (Xopenex) 0.63 mg IH [id number] [facility] Last Admin: 04/07/18 08:49 Dose: Not Given Methylprednisolone (Solu-Medrol) 40 mg IVP Q12H [facility] Last Admin: 04/07/18 09:33 Dose: 40 mg Montelukast Sodium (Singulair) 10 mg PO HS [facility] Last Admin: 04/06/18 21:45 Dose: 10 mg Mupirocin (Bactroban Ointment) 0 gm TOP BID [facility] Last Admin: 04/06/18 19:29 Dose: 1 appl Ondansetron HCl (Zofran Inj) 4 mg IVP Q4H PRN PRN Reason: Nausea/Vomiting Pantoprazole Sodium (Protonix Ec Tab) 40 mg PO 0600 [facility] Last Admin: 04/07/18 06:38 Dose: 40 mg Polyethylene Glycol (Miralax) 17 gm PO BID [facility] Last Admin: 04/07/18 10:20 Dose: Not Given Raltegravir (Isentress) 600 mg PO BID [facility] Last Admin: 04/07/18 12:23 Dose: Not Given Trimethoprim/Sulfamethoxazole (Bactrim Ds Tab) [address] [facility] [place]; Protocol Last Admin: 04/07/18 10:19 Dose: Not Given - Labs Labs: 04/07/18 07:30 04/07/18 07:30 PT 12.2 SECONDS (9.4-12.5) 04/05/18 18:44 INR 1.07 04/05/18 18:44 APTT 25.8 Seconds (25.1-36.5) 04/05/18 18:44 Assessment and Plan - Assessment and Plan (Free Text) Assessment: Pt is a 63 y.o. male w/ pmhx of COPD, HIV/AIDS, chronic pancreatitis, HTN, hep C, HLD, DM, and anemia who is admitted for acute exac of COPD, anemia w/ positive fob, and found to have thyroid nodules. Impressions Thyroid Ultrasound 04/06/18 10:52 IMPRESSION: Three nodules are identified at the right lobe with solitary focus at the left. The dominant nodule at the lower pole right lobe measures 1.4 cm with the hypoechoic halo partially surrounding it and a lot the nodule is hyperemic. Consider follow-up FNA for further characterization. Chest X-Ray 04/06/18 12:31 IMPRESSION: No active disease. Plan: On Doxy IV/Rocephin IV/Solumedrol IV Transfuse PRBC as ordered On Venofer IV as ordered GI, ID, & Dr. Fabian Infante on consult Plan for EGD per GI recs Meds per MAR Will continue to follow
[2018-04-07] MEDS: Mupirocin 2% Ointment 15 GM TUBE TOP SCH ×2 (14:01→17:09)
[2018-04-07] MEDS: cefTRIAXone 2 GM IN NS 2 GM/100 ML BAG IVPB SCH (17:13)
[2018-04-07 18:57] LABS: % CD4 (T HELPER CELL) 40 Percent (30-61); % CD8 (SUPPRESSOR T CELL) 35 Percent (12-42); ABSOLUTE CD19 CELLS 44 Cells/mcL (110-660); ABSOLUTE CD3 CELLS 352 Cells/mcL (840-3060); ABSOLUTE CD4 CELLS 213 Cells/mcL (490-1740); ABSOLUTE CD8 CELLS 183 Cells/mcL (180-1170); ABSOLUTE LYMPHOCYTES 552 Cells/mcL (850-3900); HELPER/SUPPRESSOR RATIO 1.16 Ratio (0.86-5.00)
[2018-04-07 22:43] VITALS: TEMP 98
[2018-04-08] MEDS: Levalbuterol 0.63 MG/3 ML Inhal Soln UD IH SCH ×2 (01:58→08:00)
[2018-04-08] MEDS: Acetylcysteine 20% Inhal Soln (4ml) IH SCH ×2 (01:58→08:00)
[2018-04-08] MEDS: Pantoprazole 40 mg EC Tab PO SCH (05:12)
--- NOTE | 2018-04-08 07:13 | CP.PCM.PN ---
<Millicent Mccoy - Last Filed: 04/08/18 13:13> Subjective - Date & Time of Evaluation Date of Evaluation: 04/08/18 Time of Evaluation: 07:12 - Subjective Subjective: ID Progress Note PGY-[address] Tracy Pt denied having any acute issue but refused to be examined. got 2u blood yesterday Objective - Vital Signs/Intake and Output Vital Signs (last 24 hours): Temp Pulse Resp BP Pulse Ox 98 F 77 18 116/77 97 04/07/18 22:00 04/07/18 22:00 04/07/18 22:00 04/07/18 22:00 04/07/18 22:00 Intake and Output: 04/08/18 04/08/18 06:59 18:59 Intake Total 240 Output Total 900 Balance -660 - Medications Medications: Current Medications Abacavir Sulfate (Ziagen) 300 mg PO BID [facility]; Protocol Last Admin: 04/07/18 17:15 Dose: Not Given Acetaminophen (Tylenol 325mg Tab) 650 mg PO Q6 PRN PRN Reason: TEMP>=99.5F Acetaminophen (Tylenol 650 Mg Supp) 650 mg RC Q6H PRN PRN Reason: TEMP>=99.5F Acetaminophen (Tylenol 650 Mg Supp) 650 mg RC Q6H PRN PRN Reason: Headache Acetaminophen (Tylenol 325mg Tab) 650 mg PO Q6 PRN PRN Reason: Headache Acetylcysteine (Acetylcysteine 20%) 4 ml IH [id number] [facility] Last Admin: 04/08/18 01:58 Dose: Not Given Alprazolam (Xanax) 0.25 mg PO TID PRN; Protocol PRN Reason: Anxiety Stop: 04/12/18 21:07 Last Admin: 04/07/18 17:46 Dose: 0.25 mg Amylase (Pancrease 18769 U-5000 U-40767 U) 5,000 unit PO TID [facility] Last Admin: 04/07/18 17:18 Dose: Not Given Arformoterol Tartrate (Brovana) 15 mcg IH [id number] [facility] Last Admin: 04/07/18 21:04 Dose: Not Given Atorvastatin Calcium (Lipitor) 40 mg PO DIN [facility] Last Admin: 04/07/18 17:09 Dose: 40 mg Benzonatate (Tessalon Perles) 200 mg PO TID [facility] Last Admin: 12/19/18 17:15 Dose: Not Given Budesonide (Pulmicort Respules) 0.5 mg IH [id number] [facility] Last Admin: 04/07/18 21:04 Dose: Not Given Dextrose (Dextrose 50% Inj) 0 ml IV STAT PRN; Protocol PRN Reason: Hypoglycemia Protocol Docusate Sodium (Colace) 100 mg PO TID [facility] Last Admin: 04/07/18 17:09 Dose: Not Given Doxycycline Hyclate (Doryx) 100 mg PO Q12 [facility]; Protocol Last Admin: 04/07/18 21:53 Dose: 100 mg Ergocalciferol (Drisdol 50,000 Intl Units Cap) 1 cap PO Q7D [facility] Famotidine (Pepcid) 20 mg PO DAILY [facility] Last Admin: 04/07/18 10:20 Dose: Not Given Gabapentin (Neurontin) 300 mg PO TID [facility]; Protocol Last Admin: 04/07/18 17:15 Dose: Not Given Ceftriaxone Sodium (Rocephin 2 Gm Ivpb) 2 gm in 100 mls @ 100 mls/hr IVPB DAILY [facility]; Protocol Last Admin: 04/07/18 17:13 Dose: 100 mls/hr Sodium Chloride (Sodium Chloride 0.9%) 1,000 mls @ 80 mls/hr IV .[id number] [facility] Last Admin: 04/06/18 15:49 Dose: 80 mls/hr Dextrose (Dextrose 5% In Water 1000 Ml) 1,000 mls @ 0 mls/hr IV .Q0M PRN; Protocol PRN Reason: Hypoglycemia Protocol Iron Sucrose 200 mg/ Sodium (Chloride) 110 mls @ 110 mls/hr IVPB DAILY [facility] Stop: 04/10/18 10:59 Last Admin: 04/07/18 18:22 Dose: 110 mls/hr Insulin Human Lispro (Humalog Med) 0 units SC ACHS [facility]; Protocol Last Admin: 04/07/18 21:52 Dose: 8 units Insulin Human NPH (Humulin N) 15 units SC ACBD [facility] Last Admin: 04/07/18 17:12 Dose: 15 u Lamivudine (Epivir) 300 mg PO DAILY [facility]; Protocol Last Admin: 04/07/18 15:19 Dose: Not Given Levalbuterol HCl (Xopenex) 0.63 mg IH [id number] [facility] Last Admin: 04/08/18 01:58 Dose: Not Given Methylprednisolone (Solu-Medrol) 40 mg IVP Q12H [facility] Last Admin: 04/07/18 20:53 Dose: 40 mg Montelukast Sodium (Singulair) 10 mg PO HS [facility] Last Admin: 04/07/18 21:53 Dose: 10 mg Mupirocin (Bactroban Ointment) 0 gm TOP BID [facility] Last Admin: 04/07/18 17:09 Dose: 1 appl Ondansetron HCl (Zofran Inj) 4 mg IVP Q4H PRN PRN Reason: Nausea/Vomiting Pantoprazole Sodium (Protonix Ec Tab) 40 mg PO 0600 [facility] Last Admin: 04/08/18 05:12 Dose: Not Given Polyethylene Glycol (Miralax) 17 gm PO BID [facility] Last Admin: 04/07/18 17:18 Dose: Not Given Raltegravir (Isentress) 400 mg PO BID [facility]; Protocol Last Admin: 04/07/18 17:14 Dose: Not Given Trimethoprim/Sulfamethoxazole ([facility]rim [facility]s Tab) [facility]; Protocol Last Admin: 04/07/18 15:19 Dose: 1 tab - Labs Labs: 04/07/18 07:30 04/07/18 07:30 PT 12.2 SECONDS (9.4-12.5) 04/05/18 18:44 INR 1.07 04/05/18 18:44 APTT 25.8 Seconds (25.1-36.5) 04/05/18 18:44 - Constitutional Appears: No Acute Distress - Head Exam Head Exam: ATRAUMATIC, NORMAL INSPECTION, NORMOCEPHALIC - Eye Exam Eye Exam: EOMI, Normal appearance, PERRL. absent: Scleral icterus - ENT Exam ENT Exam: Mucous Membranes Moist - Neurological Exam Neurological Exam: Alert, Awake Additional comments: move all extremities equally - Psychiatric Exam Psychiatric exam: Agitated Additional comments: No SOB/pauses, able to speak in complete sentences Assessment and Plan - Assessment and Plan (Free Text) Plan: Mr Gao, 63 AAM with PMH of HIV with last CD4 of 87 on 02/13/2018 on dual- HAART therapy, COPD on 2L home oxygen, HTN, DM, untreated hepatitis C, and chronic pancreatitis admitted for COPD exacerbation. 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 - Pending midline - CD4 count 213 - HIV viral load - follow on blood culture, sputum culture, fungitell-glucan, procalc. LDH normal - Continue triple HAART: lamivudine 300 daily, Abacavir 300bid, and Raltegravir 400bid - Continue Bactrim DS MWF for PCP prophylaxis - Continue ceftriaxone + doxy (day3) for bacterial bronchitis for now. Trend clinical course - hold laxative - Outpatient FNA thyroid nodules Imaging/culture: RPR, Hep neg Urine culture: negative Blood culture (04/05): neg x 1d Blood culture (04/06): neg x 1d CXR (04/06) No active disease Thyroid U/S (04/06) 3 nodules, hyperemic, 1.4cm largest Stool occult blood pos UDS (+) opiate. No opioids given during this hospital S/R/D/w Dr. Tracy <Wilfredo Tracy S - Last Filed: 04/08/18 13:17> Objective - Vital Signs/Intake and Output Vital Signs (last 24 hours): Temp Pulse Resp BP Pulse Ox 98 F 64 18 135/78 94 L 04/08/18 06:00 04/08/18 06:00 04/08/18 06:00 04/08/18 06:00 04/08/18 06:00 Intake and Output: 04/08/18 04/08/18 06:59 18:59 Intake Total 240 Output Total 900 Balance -660 - Labs Labs: 04/07/18 07:30 04/07/18 07:30 PT 12.2 SECONDS (9.4-12.5) 04/05/18 18:44 INR 1.07 04/05/18 18:44 APTT 25.8 Seconds (25.1-36.5) 04/05/18 18:44 Assessment and Plan - Assessment and Plan (Free Text) Plan: Infectious diseases Attending Physician Attestation Patient seen and examined, discussed with medical concierge. I have reviewed the patient's history of present illness, past medical, social, personal and family histories, pertinent physical exam findings, course so far in this hospital admission, pertinent laboratory and imaging results. I agree with the above findings, assessment and plan. In addition, continue Rocephin and Doxcycyline for acute cOPD exacerbation. Continue cART and PJP prophylaxis for HIV/AIDS. Patient is refusing biopsy of lung mass.
[2018-04-08] MEDS: Arformoterol 15 mcg/2 ml Inh Sol IH SCH (08:00)
[2018-04-08] MEDS: Budesonide 0.5 mg/2 ml Inhal Susp UD IH SCH (08:00)
[2018-04-08] MEDS: Insulin Human NPH 1 UNITS/0.01 ML SC SCH (08:31)
[2018-04-08] MEDS: Insulin Lispro (humaLOG) MEDIUM Coverage SC SCH (08:31)
[2018-04-08] MEDS: MethylPREDNISolone 40 mg Vial IVP SCH (08:32)
[2018-04-08] MEDS ORDERED: Magnesium Citrate Oral SOL (300 ml) PO ONE ×2 (09:36→16:00)
[2018-04-08 09:39] VITALS: BP 135/78; PULSE 64; O2SAT 94
[2018-04-08] MEDS ORDERED: Bisacodyl 5mg EC Tab PO ONE (12:00)
--- NOTE | 2018-04-08 14:28 | DS ---
The patient signed out against medical advice on 04/08/2018. The patient was seen in room 573, bed 3. The patient is out of bed to chair, all dressed up. The patient received this morning blood work, medications, refused EKG, refused testing and the patient wants to leave. The patient is refusing endoscopy, colonoscopy. PHYSICAL EXAMINATION: VITAL SIGNS: T-max 98 degrees Fahrenheit, heart rate 64, blood pressure 135/78, respirations 18, O2 sat 94% to 97%. Head examination normocephalic, atraumatic. HEENT examination shows pinkish pale conjunctivae. Anicteric sclerae. No oropharyngeal lesion. NECK: No neck rigidity. CHEST: Kyphosis. LUNGS: Show positive rhonchi bilaterally. No audible crackles, rales or wheezing. CARDIOVASCULAR: S1, S2, regular rhythm. Positive systolic murmur at left sternal border, right second intercostal space, left second intercostal space. ABDOMEN: Soft, protuberant. Positive bowel sounds. Genitalia: Male. Rectal examination is deferred. EXTREMITIES: Extremity shows trace swelling of the lower extremity. No pitting edema, no calf tenderness, no Homans sign. MUSCULOSKELETAL: Shows a body mass index of 24.4. NEUROLOGICAL: The patient is alert, awake, responsive. He is able to move upper and lower extremities without assistance. Gait examination is assisted with rollator. FINAL IMPRESSION, PLAN AND DISCHARGE DIAGNOSES: 1. Acute exacerbation of chronic obstructive pulmonary disease with bronchospasm, wheezing (slowly resolving). 2. Severe noncompliance and severe poor compliance. 3. History of hypertension. 4. Leukocytosis with granulocytosis. 5. Normocytic anemia with decreasing hemoglobin and hematocrit. 6. Uncontrolled diabetes mellitus with hyperglycemia and hemoglobin A1c of 10.6 and fructosamine of 381. 7. Hypovitaminosis D. 8. Multiple thyroid nodules. 9. Hypercholesterolemia with elevated LDL. 10. Questionable gastrointestinal bleeding with fecal occult blood positive. 11. CD4 lymphopenia. 12. Acquired immune deficiency syndrome and human immunodeficiency virus. 13. Reactive hepatitis C antibody. 14. Status post packed red blood cell transfusion x2. 15. Multiple thyroid nodules with dominant nodule in the right thyroid lobe with hypoechoic halo and hyperemic right thyroid nodule. 16. Deconditioning. 17. Sinus tachycardia. 18. Advanced chronic obstructive pulmonary disease, oxygen-dependent. 19. Questionable subclinical hyperthyroidism with thyroid nodule. At present, the patient was seen in room 573, bed 3. At this time, the patient is refusing all the lab tests, the patient is refusing medications, the patient wants to sign out against medical advice. The patient was explained all the risks and consequences of signing out medical advice, including bleeding, cardiac arrest and which he acknowledge and understands and is ready to take all the responsibilities. At present, the patient signed out against medical advice. All the AMA formalities, forms, etc., was completed and witnessed and signed by the medical leader, the patient and the nurse. The patient currently today is on following medications: 1. Mucomyst nebulizer treatment 20% 4 mL every 6 hours with Xopenex nebulizer treatment every 6 hours. 2. Bactrim DS one tablet three times a week. 3. Bactroban cream to the affected area. 4. Brovana 15 mcg every 12 hours. 5. Colace 100 mg three times a day. 6. Doxycycline 100 mg p.o. every 12 hours. 7. Drisdol 50,000 units weekly. 8. Epivir 300 mg daily. 9. Humalog medium dose sliding scale coverage before meals and at bedtime. 10. NPH 15 units with breakfast and 15 units with dinner. 11. IV Venofer 200 mg daily. 12. Isentress 400 mg twice a day. 13. Lipitor 40 mg daily. MiraLax 17 g twice a day. Neurontin 300 mg three times a day. Pancrease three times a day. Pepcid 20 mg daily. Protonix 40 mg daily. Pulmicort nebulizer 0.5 mg every 12 hours. Rocephin 2 g IV daily. Singulair 10 mg at bedtime. Normal saline 0.9 at 80 mL an hour. Solu-Medrol 40 mg IV every 12 hours. Tessalon Perles 200 three times a day. Tylenol 650 mg p.o. suppository every 6 hours p.r.n. Xanax 0.25 t.i.d. p.r.n. Ziagen (abacavir) 300 mg twice a day. Zofran 4 mg IV every 4 hours p.r.n. At present, the patient has signed the paper for signing out against medical advice. The patient does not want to stay in the hospital. The patient was explained all the risks and consequences of signing out against medical advice, which he acknowledged and understood. Dictated and electronically signed, not read. Suraj Ferreira MD
--- NOTE | 2018-04-09 08:59 | PN ---
DATE: 04/08/2018 SUBJECTIVE: The patient is lying in bed. He denies any rectal bleeding. The patient was supposed to have an upper endoscopy yesterday, but ate. He denies any abdominal pain or shortness of breath. PHYSICAL EXAMINATION: VITAL SIGNS: Temperature of 98, blood pressure 135/78, heart rate 64. HEENT: Sclerae to be white. Conjunctivae pale. NECK: Supple. CHEST: Distant breath sounds. HEART: Regular rate and rhythm. ABDOMEN: Soft and nontender. No mass. EXTREMITIES: No edema. LABORATORY DATA: Hemoglobin 7.7, white blood cell count 12.8, BUN 20, creatinine 0.9. IMPRESSION: 1. Anemia, rule out chronic gastrointestinal blood loss, anemia of chronic disease. 2. Acquired immunodeficiency syndrome. RECOMMENDATIONS: Endoscopy and colonoscopy. The patient is refusing these procedures. He is signing out against medical advice. I have instructed him that he may have a cancer in his GI tract or an ulcer. He understands this possibility, but adamantly refuses GI workup at this time. Jac Yin MD
== END 2018-04-08 11:08 | disposition left against medical advice (07) | DRG 191 ==
LOC: ED 15:27 → ERH 20:25 → 5RSO 22:30 → OBSVTOIN 04-06 11:06
PROVIDERS: ADMIT Internal Medicine; ATTEND Internal Medicine
PROC: 30233N1 Transfusion of Nonautologous Red Blood Cells into Peripheral Vein, Percutaneous Approach (ICD-10-PCS; principal; 2018-04-07)
DX: J44.1 Chronic obstructive pulmonary disease with (acute) exacerbation (principal); B20 Human immunodeficiency virus [HIV] disease; K86.1 Other chronic pancreatitis; I10 Essential (primary) hypertension; B19.20 Unspecified viral hepatitis C without hepatic coma; E11.65 Type 2 diabetes mellitus with hyperglycemia; D50.9 Iron deficiency anemia, unspecified; G47.30 Sleep apnea, unspecified; D63.8 Anemia in other chronic diseases classified elsewhere; E55.9 Vitamin D deficiency, unspecified; E78.00 Pure hypercholesterolemia, unspecified; I27.20 Pulmonary hypertension, unspecified; E11.40 Type 2 diabetes mellitus with diabetic neuropathy, unspecified; E04.2 Nontoxic multinodular goiter; F41.9 Anxiety disorder, unspecified; K59.00 Constipation, unspecified; E78.5 Hyperlipidemia, unspecified; M19.90 Unspecified osteoarthritis, unspecified site; R91.1 Solitary pulmonary nodule; R19.5 Other fecal abnormalities; R26.9 Unspecified abnormalities of gait and mobility; D72.810 Lymphocytopenia; Z87.891 Personal history of nicotine dependence; Z91.19 Patient's noncompliance with other medical treatment and regimen; Z99.81 Dependence on supplemental oxygen; Z79.899 Other long term (current) drug therapy; Z79.4 Long term (current) use of insulin

== ENCOUNTER 2018-04-12 04:31 | Inpatient (IN) | payer MEDICARE, MEDICAID ==
--- NOTE | 2018-04-12 04:51 | ED PDOC ---
Arrival/HPI - General Chief Complaint: Shortness Of Breath Time Seen by Provider: 04/12/18 04:33 Historian: Patient - History of Present Illness Narrative History of Present Illness (Text): 04/12/18 04:47 A 63 year old male, whose past medical history includes HIV on HAART therapy, COPD on 2L home oxygen, HTN, DM, untreated hepatitis C, and chronic pancreatitis, presents to the emergency department with a complaint of shortn ess of breath. He notes that this SOB feels exactly The patient notes that he has been experiencing some chest tightness. The patient notes that he also needs a blood transfusion for anemia. He is unsure of his current counts but notes that last time he was here he needed a transfusion. He denines any trauma or black / bloody stool. No vomiting. The patient denies any fever, chills, chest pain, abdominal pain, nausea, vomiting, diarrhea, urinary symptoms, back pain, neck pain, headache, dizziness, or any other complaints. PMD: Dr. ratliff (pt states that Dr. ratliff is no longer primary however) 04/12/18 05:38 04/12/18 06:48 Time/Duration: Other (today) Symptom Onset: Sudden Symptom Course: Unchanged Activities at Onset: Rest, Light Context: Home Past Medical History - Provider Review Nursing Documentation Reviewed: Yes - Infectious Disease Hx of Infectious Diseases: None - Tetanus Immunization Tetanus Immunization: Unknown - Cardiac Hx Hypertension: Yes - Pulmonary Hx Asthma: No (denies) Hx Sleep Apnea: Yes (occasional uses bipap) - Neurological Hx Seizures: No - HEENT Hx HEENT Disorder: Yes Hx Cataracts: Yes (right eye sx) - Renal Hx Renal Disorder: No - Endocrine/Metabolic Hx Diabetes Mellitus Type 1: Yes - Hematological/Oncological Hx Blood Disorders: Yes Hx Anemia: Yes (blood transfusion) Hx Hepatitis C: Yes - Integumentary Hx Dermatological Disorder: No - Musculoskeletal/Rheumatological Hx Arthritis: Yes - Gastrointestinal Hx Pancreatitis: Yes - Genitourinary/Gynecological Hx Sexually Transmitted Diseases: No - Psychiatric Hx Anxiety: Yes Hx Substance Use: No (denies) - Surgical History Hx Orthopedic Surgery: No - Anesthesia Hx Anesthesia: Yes Hx Anesthesia Reactions: No Hx Malignant Hyperthermia: No - Suicidal Assessment Feels Threatened In Home Enviroment: No Family/Social History - Physician Review Nursing Documentation Reviewed: Yes Family/Social History: No Known Family HX Smoking Status: Former Smoker Hx Alcohol Use: No (denies) Hx Substance Use: No (denies) Substance used: h/o heroine use Allergies/Home Meds Allergies/Adverse Reactions: Allergies No Known Allergies Allergy (Verified 04/12/18 16:43) Home Medications: Home Meds Medication Instructions Recorded Confirmed RX: Aspirin [Ecotrin] 81 mg PO DAILY 03/24/18 04/12/18 Review of Systems - Physician Review All systems were reviewed & negative as marked: Yes - Review of Systems Constitutional: absent: Fevers Respiratory: SOB Cardiovascular: absent: Chest Pain Gastrointestinal: absent: Abdominal Pain, Diarrhea, Nausea, Vomiting Musculoskeletal: absent: Back Pain, Neck Pain Neurological: absent: Headache, Dizziness Physical Exam Appearance: Positive for: Well-Appearing, Non-Toxic, Comfortable Pain Distress: None Mental Status: Positive for: Alert and Oriented X 3 - Systems Exam Head: Present: Atraumatic, Normocephalic Pupils: Present: PERRL Extroacular Muscles: Present: EOMI Conjunctiva: Present: Normal Mouth: Present: Moist Mucous Membranes Neck: Present: Normal Range of Motion Respiratory/Chest: Present: Good Air Exchange, Wheezes (wheezes in all lung mireles. Patient speaking in full sentences. ). No: Respiratory Distress, Accessory Muscle Use Cardiovascular: Present: Regular Rate and Rhythm, Normal S1, S2. No: Murmurs Abdomen: No: Tenderness, Distention, Peritoneal Signs Back: Present: Normal Inspection Upper Extremity: Present: Normal Inspection. No: Cyanosis, Edema Lower Extremity: Present: Normal Inspection. No: Edema Neurological: Present: GCS=15, CN II-XII Intact, Speech Normal Skin: Present: Warm, Dry, Normal Color. No: Rashes Psychiatric: Present: Alert, Oriented x 3, Normal Insight, Normal Concentration Medical Decision Making ED Course and Treatment: 04/12/18 04:56 Impression: A 63 year old male presents to the emergency department with a complaint of shortness of breath. hx of HIV on HAART therapy: pt notes that his CD4 is normal. He notes his symptoms feel exactly alike his previous COPD exacerbations for which he has been admitted. He notes being on constant 2L therapy. On exam, speaking in full sentences, and in NAD. B/L wheezes in all lung mireles. Likely COPD exacerbation. Plan: -- EKG -- CXR -- Labs -- SOLU- Medrol and Duoneb -- Reassess and disposition Prior Visits: Notes and results from previous visits were reviewed. Progress Notes: EKG: Ordered, reviewed, and independently interpreted the EKG. Rate : 107 BPM Rhythm : Sinus Tachycardia Interpretation : No STEMI 04/12/18 05:40 XR unremarkable, no bat like appearance on XR . rocephin ordered given hx of HIV and COPD 04/12/18 06:49 Mild anemia on labs, no pallor. No dark or bloody stool per pt. No trauma. Mild wheezes on repeat exam, much improved. Pt in NAD, speaking full sentences w/ out distress. Will admit for COPD given comorbidities. Pt agreeable to plan. Appreciate consult w/ Dr. Saucedo: accepted to his service Consult placed per Dr. March reccs Dr. Zhang, , and 04/14/18 22:30 - Lab Interpretations I have reviewed the lab results: Yes - EKG Interpretation Interpreted by ED Physician: Yes Type: 12 lead EKG - Scribe Statement The provider has reviewed the documentation as recorded by the Scribe Naima Cardenas Provider Scribe Attestation: All medical record entries made by the Scribe were at my direction and personally dictated by me. I have reviewed the chart and agree that the record accurately reflects my personal performance of the history, physical exam, medical decision making, and the department course for this patient. I have also personally directed, reviewed, and agree with the discharge instructions and disposition. Disposition/Present on Arrival - Present on Arrival Any Indicators Present on Arrival: No History of DVT/PE: No History of Uncontrolled Diabetes: No Urinary Catheter: No History of Decub. Ulcer: No History Surgical Site Infection Following: None - Disposition Have Diagnosis and Disposition been Completed?: Yes Diagnosis: COPD (chronic obstructive pulmonary disease) Disposition: HOSPITALIZED Disposition Time: 06:49 Condition: GOOD
[2018-04-12] MEDS: Albuterol-Ipratrop 3 mg / 0.5 (3 ml) UD IH SCH ×3 (05:05→05:35)
[2018-04-12 05:29] LABS: BASO # 0.01 K/mm3 (0.0-2.0); BASO % 0.1 % (0.0-3.0); EOS # 0.2 (0.0-0.7); EOS % 1.6 % (1.5-5.0); GRAN # 8.1 (1.4-6.5); GRAN % 76.2 % (50.0-68.0); LYMPH # 1.8 (1.2-3.4); LYMPH % 16.5 % (22.0-35.0); MEAN CORPUSCULAR HEMOGLOBIN 25.3 pg (25.0-35.0); MEAN CORPUSCULAR HGB CONC 30.1 g/dl (31.0-37.0); MEAN PLATELET VOLUME 9.5 fl (7.0-11.0); MONO # 0.6 (0.1-0.6); MONO % 5.6 % (1.0-6.0); RBC 4.71 10^6/uL (3.5-6.1); RED CELL DISTRIBUTION WIDTH 17.7 % (11.5-14.5); WHITE BLOOD COUNT 10.6 10^3/uL (4.5-11.0)
[2018-04-12] MEDS ORDERED: cefTRIAXone 1 gm 1 GM/100 ML BAG IVPB STA (05:36)
[2018-04-12 05:44] LABS: HEMOGLOBIN 11.9 g/dL (14.0-18.0); MEAN CELL VOLUME 84.1 fl (80.0-105.0)
[2018-04-12 05:52] LABS: TROPONIN I < 0.01 ng/mL
[2018-04-12 06:26] LABS: ALB/GLOB RATIO 1.2 (1.1-1.8); ALBUMIN 4.2 g/dL (3.0-4.8); ALT/SGPT 21 U/L (7-56); AST/SGOT 24 U/L (17-59); BLOOD UREA NITROGEN 18 mg/dL (7-21); CALCIUM 9.4 mg/dL (8.4-10.5); GFR NON-AFRICAN AMERICAN 56
--- NOTE | 2018-04-12 08:59 | RAD ---
Date of service: 04/12/2018 HISTORY: sob COMPARISON: 04/06/2018 FINDINGS: LUNGS: No active pulmonary disease. PLEURA: No significant pleural effusion identified, no pneumothorax apparent. CARDIOVASCULAR: No aortic atherosclerotic calcification present. Normal cardiac size. No pulmonary vascular congestion. OSSEOUS STRUCTURES: No significant abnormalities. VISUALIZED UPPER ABDOMEN: Normal. OTHER FINDINGS: None. IMPRESSION: No active disease.
[2018-04-12] MEDS ORDERED: Albuterol-Ipratrop 3 mg / 0.5 (3 ml) UD IH SCH (09:00)
[2018-04-12] MEDS ORDERED: RALTEGRAVIR POTASSIUM 600 MG PO SCH (10:00)
[2018-04-12] MEDS ORDERED: Azithromycin 500MG/NS 250ml 500 MG/250 ML BAG IVPB SCH (10:00)
[2018-04-12] MEDS ORDERED: cefTRIAXone 1 gm 1 GM/100 ML BAG IVPB SCH (10:00)
[2018-04-12] MEDS ORDERED: Non Formulary Medication (Budesonide/Formoterol Fumarate [Symbicort 160-4.5 Mcg Inhaler] 1 IH SCH (10:00)
--- NOTE | 2018-04-12 10:19 | HP ---
DATE OF EXAM: 04/12/2018 HISTORY OF PRESENT ILLNESS: I saw Charly in the emergency room. I was called down to admit him to the hospital in my service. He has shortness of breath and chest tightness. The patient states he had a blood transfusion for anemia, will check that. No black tarry stools. No bleeding anywhere. He has got a past medical history of HIV, on HAART therapy, COPD, 2 liters of oxygen at home, hypertension, diabetes, untreated hepatitis C and chronic pancreatitis. Dr. Patricio is no longer his primary doctor at this time. was suddenly at home. He is very noncompliant patient I am told. History of hypertension, sleep apnea. BiPAP, and right eye surgery for cataracts, type 1 diabetes, blood transfusions in the past. She has hepatitis C untreated, pancreatitis, arthritis, and anxiety. FAMILY HISTORY: No known family history. Former smoker. No alcohol. History of heroin use. ALLERGIES: NO KNOWN DRUG ALLERGIES. MEDICATIONS: On lots of medications. He has no fevers, he is short of breath. No chest pain. No abdominal pain. No back pain, no neck pain. No headache, no dizziness. PHYSICAL EXAMINATION: VITAL SIGNS: He has a 98 temp, 91 pulse, 109/73 blood pressure, 18 respiratory rate and 95% O2 sat. HEENT: His head is atraumatic, normocephalic. Extraocular muscles are intact. Pupils equal, reactive to light. Throat is dry. NECK: Supple. HEART: Regular rate. Normal S1, S2. LUNGS: Decreased breath sounds bilaterally with wheezes in all lung mireles, mild congestion. ABDOMEN: Soft, nontender. Positive bowel sounds. No guarding, rebound or CVA tenderness. EXTREMITIES: No edema. GCS 15. NEUROLOGIC: Cranial nerves II-XII grossly intact. Speech is normal. Alert and oriented. SKIN: No apparent rashes appreciable. LYMPH: Thyroid midline. No palpable appreciable lymphadenopathy. LABORATORY DATA: He had multiple tests done. 10.6 white count, 11.9 hemoglobin, 39.6 hematocrit with 290 platelets. 135 sodium, potassium 4, BUN is 18, creatinine 1.2, GFR is 66, sugar is 511. We will call in Endocrinology, put him on coverage. Calcium is 9.4, magnesium 1.8, total bili is 0.6, AST is 24, ALT is 21, alk phos 115. Troponin I is less than 0.01, total protein 7.7, albumin is 4.2. DIAGNOSTIC DATA: EKG and chest x-ray are pending. He has got consults with Endocrinology, Infectious Disease and Pulmonary. We will put him on his medications of Solu-Medrol, Rocephin, Zithromax and we will see how he does. He is here for COPD, history of HIV, he has got diabetes. I will check his troponins. Lucio Saucedo DO [facility]
[2018-04-12] MEDS: MethylPREDNISolone 40 mg Vial IVP SCH ×2 (10:31→17:38)
[2018-04-12] MEDS: PROTEASE PO SCH ×3 (10:41→18:26)
[2018-04-12] MEDS: LIPASE PO SCH ×3 (10:41→18:26)
[2018-04-12] MEDS: AMYLASE PO SCH ×3 (10:41→18:26)
[2018-04-12] MEDS: [UNRECOGNIZED DRUG - OTHER] PO SCH ×3 (10:41→18:26)
[2018-04-12] MEDS ORDERED: Albuterol-Ipratrop 3 mg / 0.5 (3 ml) UD IH PRN (10:56)
[2018-04-12] MEDS ORDERED: Insulin Reg-MEDIUM-Coverage SC SCH (11:30)
--- NOTE | 2018-04-12 12:35 | CON ---
PULMONARY CONSULTATION NOTE DATE: 04/12/2018 HISTORY OF PRESENT ILLNESS: This is a 63-year-old male known to us from previous admissions with history of noncompliance, does not follow up with treatment plan. The patient has past medical history of chronic lung disease, HIV positive, sleep apnea syndrome, diabetes, hypertension, chronic pancreatitis, arthritis, anxiety and hepatitis C untreated. The patient presented to emergency room complaining of shortness of breath and chest tightness. The patient has had CT of chest in the past which showed mediastinal, tracheal and lung nodule. In the past the patient has chosen not to have nodules biopsied. PAST MEDICAL HISTORY: As per history of present illness. ALLERGIES: NO KNOWN DRUG ALLERGIES. SOCIAL HISTORY: Former smoker. Positive history substance abuse and alcohol abuse. FAMILY HISTORY: No significant cardiopulmonary disease reported. MEDICATIONS: Reviewed. Abacavir sulphate 300 mg twice a day, DuoNeb 3 mL inhalation every 6 hours, Xanax 0.25 mg three times a day p.r.n., Norvasc 5 mg daily, aspirin 81 mg daily, Zithromax 500 mg daily IV piggyback, Rocephin 1 g IV piggyback daily, Pepcid 20 mg daily, Lasix 20 mg daily, Neurontin 300 mg three times a day, Humulin R sliding scale a.c. and at bedtime, Cozaar 25 mg daily, Solu-Medrol 40 mg every 8 hours, Singulair 10 mg at bedtime, Symbicort 1 puff twice a day, Creon 12,000 units three times a day, Isentress 600 mg twice a day and Aldactone 25 mg daily. REVIEW OF SYSTEMS: No headache, rhinitis, chest pain, abdominal pain, nausea, vomiting, diarrhea or leg pain reported. The patient does report cough, shortness of breath with sputum production. Reports some swelling to lower extremities. PHYSICAL EXAMINATION: GENERAL: No acute distress. VITAL SIGNS: Blood pressure 123/57, pulse 68, temperature 98.2 and oxygen saturation 96% on room air. HEENT: Moist mucous membranes. Crowded airway. NECK: Supple. No JVD. LUNGS: Mild expiratory wheezing bilaterally, scattered rhonchi. CARDIOVASCULAR: S1 and S2 audible. ABDOMEN: Soft and nontender. No organomegaly. EXTREMITIES: Trace edema bilateral lower extremities. NEUROLOGIC: Awake, alert and verbal. Follows simple commands. LABORATORY DATA: Reviewed. WBC 10.6, RBC 4.71, hemoglobin 11.9, hematocrit 39.6, and platelets 290. Sodium 135, potassium 4.0, chloride 97, carbon dioxide 28, anion gap 15, BUN 18, creatinine 1.3, GFR greater than 60, random glucose of 511, calcium 9.4, magnesium 1.8, total bilirubin 0.6, AST 24, ALT 21, alkaline phosphatase 115, troponin less than 0.01, total protein 7.7, albumin 4.2, globulin 3.7 and albumin-globulin ratio 1.2. DIAGNOSTIC DATA: Chest x-ray shows no active disease. Electrocardiogram report pending. IMPRESSION AND PLAN: Chronic obstructive lung disease, history of substance abuse, human immunodeficiency virus positive, diabetes, hypertension, history of chronic pancreatitis, arthritis, history of right lung nodule with mediastinal and tracheal adenopathy. I spoke with the patient in detail regarding lung nodule which was seen on CT in February, discussed biopsy of lung nodule. The patient refusing biopsy of lung nodule understanding that nodule may be cancerous and could lead to . The patient still verbalizes he does not want biopsy done. We will continue inhaled bronchodilators and continue antibiotics. We will order procalcitonin level for the morning. We noted ambulating in room. We will order sequential compression devices for deep venous thrombosis prophylaxis. We will add Pulmicort, Brovana, Mucomyst and nebulizer treatments. This patient was seen and examined with Dr. Browning. Discussed assessment and plan as described above. Thank you for this consult and we will follow with you. Keith Bowens APN [place] Browning MD
[2018-04-12] MEDS: Cefepime 1gm in NS 100ml 1 GM/100 ML BAG IVPB SCH ×2 (12:56→22:33)
[2018-04-12] MEDS: Insulin Lispro (humaLOG) LOW Coverage SC SCH ×2 (16:04→22:48)
[2018-04-12] MEDS ORDERED: Insulin Lispro 1 UNITS/0.01 ML SC SCH (16:30)
[2018-04-12] MEDS: Symbicort 160-4.5 Mcg Inhaler (HOME MED) IH SCH (18:25)
[2018-04-12 19:20] VITALS: BMI 23.6
[2018-04-12] MEDS ORDERED: Influenza Vaccine 60 mcg/0.5 mL SYR (4YR UP) IM ONE (19:20)
[2018-04-12] MEDS ORDERED: Pneumococcal 23-Valent Vaccine IM ONE (19:20)
--- NOTE | 2018-04-12 19:43 | CON ---
DATE: 04/12/2018 LOCATION: The patient is seen in room 269. The patient was seen earlier today in the emergency room. CHIEF COMPLAINT: Shortness of breath x1 to 2 days duration. HISTORY OF PRESENT ILLNESS: This is a 63-year-old male, known to me from multiple admissions, with end-stage chronic obstructive lung disease; chronic respiratory failure, on home O2 therapy; HIV and AIDS with last CD4 count down to 89, had been 213, undetectable viral load; diabetes mellitus, uncontrolled; hepatitis C, untreated; recent multiple hospitalizations; polysubstance abuse and recently had GI bleeding, also hypertension, who is now admitted with worsening of his short of breathing. No fevers. No chills. There is cough, nonproductive. No chest pain. No abdominal pain, diarrhea, or constipation. No bright red blood per rectum. No melena, dysuria. No frequency. REVIEW OF SYSTEMS: Fourteen-point review of systems is performed. PAST MEDICAL HISTORY: Significant for AIDS, end-stage COPD, diabetes, hypertension, hep C, GI bleed, and polysubstance abuse. PAST SURGICAL HISTORY: Significant for jaw surgery. ALLERGIES: THE PATIENT HAS NO KNOWN ALLERGIES. MEDICATIONS AT HOME: Include raltegravir, abacavir, lamivudine in addition to his COPD medications. SOCIAL HISTORY: He is a chronic active smoker. PHYSICAL EXAMINATION VITAL SIGNS: His temperature is 98, blood pressure is 107/70, respiratory rate of 24, heart rate of 110. HEENT: Reveals no oral thrush. NECK: Supple. LUNGS: Have decreased breath sounds. HEART: Normal S1, S2. ABDOMEN: Soft, nontender. LABORATORY EXAMINATION: Reveals the patient's white count is 10,000, hemoglobin of 11, platelets of 290. Chemistries are noted. BUN of 18, creatinine is up to 1.3. On the last admission, the patient's creatinine was 0.9. LFTs are normal. Albumin is 4.2 and chloride is 97. Chest x-ray is reported to be negative. ASSESSMENT AND PLAN: This is a 63-year-old male with positive human immunodeficiency virus and acquired immunodeficiency syndrome and low CD4 count, undetectable; end-stage chronic obstructive lung disease; chronic respiratory failure; diabetes; hepatitis C, presenting with tachycardia, dyspnea. Systemic inflammatory response syndrome with acute kidney injury, negative chest x-ray at this time, wants to rule out healthcare-associated pneumonia in a patient with acquired immunodeficiency syndrome. We will discontinue ceftriaxone and Zithromax, treat the patient with doxycycline and Maxipime pending procalcitonin, LDH, urine for Legionella antigen, panculture, blood culture, methicillin-resistant Staphylococcus aureus screen, and sputum cultures, and we will follow closely with you. Overall, long-term term prognosis is quite poor, because of his end-stage chronic obstructive lung disease and continues to be a smoker. Elvis Matias MD [facility] # [id number]
--- NOTE | 2018-04-12 19:53 | CON ---
ENDOCRINOLOGY CONSULTATION DATE OF CONSULTATION: 04/12/2018 LOCATION: Room 269. HISTORY OF PRESENT ILLNESS: This is a 63-year-old male with known history of type 2 diabetes and hypertension, presenting here with acute exacerbation of COPD and placed on high-dose IV steroid therapy with supervening marked hyperglycemic accelerations as noted thereof. He is being referred now for diabetic evaluation and management. PAST MEDICAL HISTORY: History of type 2 diabetes, previously on oral hypoglycemic therapy, but has been off medications at this time. History of hypertension and dyslipidemia. History of HIV, on antiretroviral therapy. History of chronic obstructive lung disease, on home oxygen therapy. History of hepatitis C with no prior medical treatment. History of chronic pancreatitis. History of obstructive sleep apnea and uses his BiPAP only occasionally. FAMILY HISTORY: Positive for hypertension and diabetes. SOCIAL HISTORY: The patient is a former smoker and also has previous heroin use. He has a supportive family otherwise. REVIEW OF SYSTEMS: As mentioned above. Admits to generalized body weakness with episodic bouts of dizziness and lightheadedness, worse on the day of admission. Also admits to precordial chest pain with progressive shortness of breath initially on exertion, then at rest, with paroxysmal nocturnal dyspnea. His oral intake has been variable with nausea, dyspepsia with marked polyuria, nocturia and polydipsia. PHYSICAL EXAMINATION: GENERAL: This is an average built male in no apparent distress. VITAL SIGNS: Blood pressure of 150/90, pulse of 100 beats per minute and regular, temperature 98, respirations 20. Height is 5 feet 9 inches. Weight is 160 pounds. HEENT: Head normocephalic. Eyes anicteric with pink conjunctivae. Funduscopy not possible at this time. Ears, nose and throat otherwise normal. NECK: Supple. Thyroid gland is normal in size. No carotid bruits or cervical adenopathy. CARDIOPULMONARY: Some adynamic precordium. S1 and S2 are rapid and regular. Lungs showed scattered rhonchi in both lung mireles as noted. ABDOMEN: Flat, soft with positive bowel sounds. EXTREMITIES: No peripheral edema. Pulses are +2 bilaterally. LABORATORY DATA: His chemistry showed a BUN of 18, sodium 135, potassium 4, chloride 97, CO2 of 28, glucose 511, and creatinine 1.3. ASSESSMENT: This is a 63-year-old male with uncontrolled and decompensated type 2 insulin-requiring diabetes with history of suboptimal metabolic control, and as he has been off oral hypoglycemic therapy, now presenting with acute exacerbation of chronic obstructive pulmonary disease and placed on IV steroid therapy with expected transient hyperglycemic accelerations from the intercurrent increased insulin resistance with ongoing IV steroids as given. PLAN OF MANAGEMENT: We will initiate a more physiologic basal and bolus insulin drug combination with Humalog given as 20 units subcu t.i.d. before meals to start today as ordered. We will also add basal insulin with Levemir given as 60 units subcu at bedtime daily to start tonight. We will modify the coverage scale to obviate hypoglycemia and detailed orders have been given. We will recommend also the initiation of oral hypoglycemic therapy prior to his discharge such as a combination of Januvia and metformin to optimize also his outpatient metabolic control of his diabetic condition. We will obtain serial chemistries and supplement accordingly as needed. We will follow with you. Mariposa Mckeon MD
--- NOTE | 2018-04-12 21:01 | CARD ---
APPROVED REPORT Date of service: 04/12/2018 EKG Measurement Heart [id number] <Conclusion> Sinus tachycardia Otherwise normal ECG
[2018-04-12] MEDS: Arformoterol 15 mcg/2 ml Inh Sol IH SCH (21:02)
[2018-04-12] MEDS: Acetylcysteine 20% Inhal Soln (4ml) IH SCH (21:02)
[2018-04-12] MEDS: Budesonide 0.5 mg/2 ml Inhal Susp UD IH SCH (21:02)
[2018-04-12] MEDS ORDERED: Insulin Detemir 100 units/ml Vial (Levemir) SC SCH (22:00)
--- NOTE | 2018-04-12 22:34 | CP.PCM.PN ---
Subjective - Date & Time of Evaluation Date of Evaluation: 04/12/18 Time of Evaluation: 22:33 - Subjective Subjective: # 24 angiocath was inserted in right arm, # 22 angiocath was inserted in volar distal right forearm. Objective - Vital Signs/Intake and Output Vital Signs (last 24 hours): Temp Pulse Resp BP Pulse Ox 97.1 F L 75 18 99/68 L 96 04/12/18 17:38 04/12/18 17:38 04/12/18 18:46 04/12/18 17:38 04/12/18 08:55 - Medications Medications: Current Medications Abacavir Sulfate (Ziagen) 300 mg PO BID [facility]; Protocol Last Admin: 04/12/18 18:27 Dose: 300 mg Acetylcysteine (Acetylcysteine 20%) 4 ml IH BIDRESP [facility] Last Admin: 04/12/18 21:02 Dose: Not Given Albuterol/Ipratropium (Duoneb 3 Mg/0.5 Mg (3 Ml) Ud) 3 ml IH [id number] PRN PRN Reason: Shortness of Breath Alprazolam (Xanax) 0.25 mg PO TID PRN; Protocol PRN Reason: Anxiety Stop: 04/19/18 08:59 Amlodipine Besylate (Norvasc) 5 mg PO DAILY [facility] Last Admin: 04/12/18 10:29 Dose: 5 mg Arformoterol Tartrate (Brovana) 15 mcg IH [id number] [facility] Last Admin: 04/12/18 21:02 Dose: 15 mcg Aspirin (Ecotrin) 81 mg PO DAILY [facility] Last Admin: 04/12/18 10:28 Dose: 81 mg Budesonide (Pulmicort Respules) 0.5 mg IH [id number] [facility] Last Admin: 04/12/18 21:02 Dose: 0.5 mg Doxycycline Hyclate (Doryx) 100 mg PO Q12 [facility]; Protocol Stop: 04/21/18 12:31 Last Admin: 04/12/18 12:55 Dose: 100 mg Famotidine (Pepcid) 20 mg PO DAILY [facility] Last Admin: 04/12/18 10:29 Dose: 20 mg Furosemide (Lasix) 20 mg PO DAILY [facility] Last Admin: 04/12/18 10:28 Dose: 20 mg Gabapentin (Neurontin) 300 mg PO TID [facility]; Protocol Last Admin: 04/12/18 18:26 Dose: 300 mg Cefepime HCl (Maxipime 1gm) 1 gm in 100 mls @ 100 mls/hr IVPB Q12 [facility]; Protocol Stop: 04/21/18 12:32 Last Admin: 04/12/18 12:56 Dose: 100 mls/hr Insulin Detemir (Levemir) 60 unit SC HS [facility] Insulin Human Lispro (Humalog) 20 units SC AC [facility] Last Admin: 04/12/18 16:04 Dose: 20 unit Insulin Human Lispro (Humalog Low) 0 units SC ACHS [facility]; Protocol Last Admin: 04/12/18 16:04 Dose: 3 units Losartan Potassium (Cozaar) 25 mg PO DAILY [facility] Last Admin: 04/12/18 10:28 Dose: 25 mg Methylprednisolone (Solu-Medrol) 40 mg IVP Q8H [facility] Last Admin: 04/12/18 17:38 Dose: Not Given Montelukast Sodium (Singulair) 10 mg PO HS [facility] Non-Formulary Medication (Lipase/Protease/Amylase [Creon Dr 12,000 Units Capsule]) 1 each PO TID [facility] Last Admin: 04/12/18 18:26 Dose: Not Given Symbicort 160-4.5 Mcg Inhaler ( Home Med) 1 aer IH BID [facility] Last Admin: 04/12/18 18:25 Dose: 1 aer Raltegravir (Isentress) 400 mg PO BID [facility]; Protocol Last Admin: 04/12/18 18:25 Dose: 400 mg Spironolactone (Aldactone) 25 mg PO DAILY [facility] Last Admin: 04/12/18 10:27 Dose: 25 mg - Labs Labs: 04/12/18 05:10 04/12/18 05:10
[2018-04-13] MEDS: MethylPREDNISolone 40 mg Vial IVP SCH ×5 (00:01→22:05)
[2018-04-13] MEDS ORDERED: Insulin Lispro 1 UNITS/0.01 ML SC SCH (07:30)
[2018-04-13 07:42] LABS: MEAN CELL VOLUME 80.9 fl (80.0-105.0); MEAN CORPUSCULAR HGB CONC 30.9 g/dl (31.0-37.0); MEAN PLATELET VOLUME 9.1 fl (7.0-11.0); RBC 4.4 10^6/uL (3.5-6.1); RED CELL DISTRIBUTION WIDTH 17.4 % (11.5-14.5); WHITE BLOOD COUNT 12.1 10^3/uL (4.5-11.0)
[2018-04-13 07:56] LABS: ALB/GLOB RATIO 1.2 (1.1-1.8); ALBUMIN 3.5 g/dL (3.0-4.8); ALT/SGPT 29 U/L (7-56); AST/SGOT 16 U/L (17-59); BLOOD UREA NITROGEN 31 mg/dL (7-21); CALCIUM 9.5 mg/dL (8.4-10.5); GFR NON-AFRICAN AMERICAN > 60; HDL CHOLESTEROL 82 mg/dL (29-60)
[2018-04-13 08:05] LABS: LDL CHOLESTEROL 83 mg/dL (0-129)
[2018-04-13] MEDS: Budesonide 0.5 mg/2 ml Inhal Susp UD IH SCH ×2 (08:11→19:47)
[2018-04-13] MEDS: Acetylcysteine 20% Inhal Soln (4ml) IH SCH ×2 (08:11→19:47)
[2018-04-13] MEDS: Arformoterol 15 mcg/2 ml Inh Sol IH SCH ×2 (08:11→19:47)
[2018-04-13] MEDS: Cefepime 1gm in NS 100ml 1 GM/100 ML BAG IVPB SCH ×2 (10:27→21:27)
[2018-04-13] MEDS: PROTEASE PO SCH ×3 (10:28→17:49)
[2018-04-13] MEDS: [UNRECOGNIZED DRUG - OTHER] PO SCH ×3 (10:28→17:49)
[2018-04-13] MEDS: LIPASE PO SCH ×3 (10:28→17:49)
[2018-04-13] MEDS: AMYLASE PO SCH ×3 (10:28→17:49)
[2018-04-13] MEDS: Insulin Lispro (humaLOG) LOW Coverage SC SCH ×4 (10:30→21:40)
[2018-04-13] MEDS: Symbicort 160-4.5 Mcg Inhaler (HOME MED) IH SCH ×2 (10:30→17:49)
[2018-04-13] MEDS ORDERED: Iohexol 240 (50 ml) ONE (11:12)
[2018-04-13] MEDS: Amylase/Lipase/Protease 5,000 Units ECC PO SCH ×3 (12:07→17:32)
--- NOTE | 2018-04-13 12:43 | PN ---
DATE: 04/13/2018 LOCATION: Room 269. SUBJECTIVE: This is a 63-year-old male with recent uncontrolled type 2 insulin-requiring diabetes with supervening acute exacerbation of COPD and placed on IV steroid therapy with expected hyperglycemic accelerations temporarily as noted thereof. His glycemic levels have improved overnight and the glucose values have ranged from 195 to 324 mg/dL. His chemistry showed a BUN of 31, sodium 138, potassium 4, chloride 101, CO2 of 31, glucose 122 and creatinine 1. His TSH is 0.06. His lipid panel is normal. ASSESSMENT: This is a 63-year-old male with uncontrolled and decompensated type 2 insulin-requiring diabetes, most likely precipitated by the intercurrent intravenous steroid therapy with expected increased insulin resistance and further impaired glucose tolerance thereof. This is however only a temporary glycemic acceleration and should improve remarkably as we taper down the intravenous steroid therapy as noted. However, with the elevated A1c values, the patient could still require oral hypoglycemic therapy on the outpatient to optimize metabolic control. His suppressed thyroid-stimulating hormone is most likely related to the intercurrent intravenous steroid which also caused a transient thyroid-stimulating hormone suppression thereof. However, we have to follow the levels to exclude any underlying subclinical hyperthyroidism. PLAN OF MANAGEMENT: We will modify his basal and bolus insulin regimen as his IV steroids are being tapered down as noted today. We will lower the basal insulin with Levemir to 14 units subcu at bedtime daily to start tonight. We will also lower the Humalog down to 20 units subcu t.i.d. before meals to start at lunchtime today as ordered. We will continue the same low-dose correction scale using Humalog insulin to obviate hypoglycemia and detailed orders have been given. We will follow. Mariposa Mckeon MD
--- NOTE | 2018-04-13 14:43 | PN ---
DATE: 04/13/2018 SUBJECTIVE: Charly Gao is a very difficult patient. He is having some abdominal pain, asking for CAT scan of the abdomen and pelvis. I will do that for him. He has got ultrasound of lower extremities which is normal. He is on numerous medications. He is on acetylcysteine, Bactrim, Brovana, Cozaar, Doryx, DuoNeb, Ecotrin, insulin, Isentress, Lasix, Levemir, Maxipime IV, Neurontin, Norvasc, Pepcid, Pulmicort, Singulair, IV Solu-Medrol 40 every 8 hours, Symbicort, Xanax, Ziagen. He has COPD, HIV, and diabetes. He has had multiple consults. He has Pulmonology, Infectious Disease, and Endocrinology. We are going to continue with aggressive treatment and care on him. We will check a CAT scan of his abdomen and pelvis. PHYSICAL EXAMINATION: VITAL SIGNS: Temperature 98.2, pulse 74, blood pressure 101/64, respiratory rate 19, 94% O2 sat on nasal canula. HEENT: Head is atraumatic and normocephalic. HEART: Regular rate. LUNGS: Decreased breath sounds. ABDOMEN: Mildly distended. Mild discomfort. No guarding. No rebound. EXTREMITIES: No edema. LABORATORY DATA: Sodium 138, potassium 4, BUN 31, creatinine 1, GFR is less than 60, sugar is 122, calcium 9.5, magnesium is 2.1, total bili is 0.38, AST is 16, ALT is 29 and alk phos 86, troponin I is less than 0.01, total protein is 6.6, albumin 3.5, globulin 3.1, triglycerides 63, cholesterol 172, TSH is low at 0.06. White count 12.1, hemoglobin 11, hematocrit 35.6, and platelets 277. ASSESSMENT AND PLAN: I am going to decrease his Solu-Medrol to 30 IV every 8, check a CAT scan of his abdomen and pelvis. Check his labs tomorrow. I encouraged him to get out of bed to chair. Start physical therapy I am going to continue aggressive treatment and care on Charly Gao. Carline Saucedo DO [facility]
--- NOTE | 2018-04-13 14:55 | PN ---
DATE: 04/13/2018 SUBJECTIVE: The patient is in bed, in no acute distress, nontoxic. No fevers. No chills. PHYSICAL EXAMINATION: VITAL SIGNS: Temperature is 97, blood pressure is 114/70, respiratory rate of 18, and heart rate of 72. HEENT: Unremarkable. NECK: Supple. LUNGS: Decreased breath sounds. HEART: Normal S1, S2. ABDOMEN: Soft. LABORATORY EXAMINATION: Reveals a white count of 12,100, hemoglobin of 11, and platelets of 277. BUN of 31 and creatinine of 1.0. Microbiology is . Review of orders reveals the patient's MRSA screen is pending. Blood cultures are pending and urine for Legionella antigen is pending. The patient is on p.o. doxycycline, raltegravir. The patient is also on cefepime and doxycycline. The patient is on abacavir, raltegravir, and lamivudine and taking his old home medications and the patient's procalcitonin is 0.29 which is bacterial pneumonia and had an LVH which is normal at 569. An ultrasound of lower extremity which was negative for DVT. Chest x-ray which is negative. ASSESSMENT AND PLAN: This is a 63-year-old male who has chronic respiratory failure; end-stage chronic obstructive pulmonary disease, on home O2 therapy; has human immunodeficiency virus and acquired immunodeficiency syndrome undetectable viral loads, had a CD4 count as low with 89. Although only a year ago, the patient's CD4 count was 500 and repeat one was 213 with percentage fernandes it is 30%. CD4 percentage at 30% diabetic; uncontrolled hepatitis C which was untreated; multiple admissions; polysubstance abuse; recently had gastrointestinal bleed; and hypertension. He was admitted with essentially worsening of his chronic obstructive pulmonary disease and #1 is systemic inflammatory response syndrome with acute kidney injury, negative chest x-ray, negative procalcitonin, awaiting for culture result. May be able to discontinue the antibiotics in the next 24 hours and the cultures were negative and continue with the HIV care followup with the HIV doctor. Unfortunately, his end-stage chronic obstructive pulmonary disease is significant. Elvis Matias MD
--- NOTE | 2018-04-13 15:45 | CT ---
Date of service: 04/13/2018 PROCEDURE: CT Abdomen and Pelvis with contrast HISTORY: Unspecified pain COMPARISON: 01/29/2016. CT abdomen and pelvis TECHNIQUE: Oral contrast only. Radiation dose: Total exam DLP = 330.26 mGy-cm. This CT exam was performed using one or more of the following dose reduction techniques: Automated exposure control, adjustment of the mA and/or kV according to patient size, and/or use of iterative reconstruction technique. FINDINGS: LOWER THORAX: Scarring and emphysematous changes identified at the lung bases. LIVER: Unremarkable. No gross lesion or ductal dilatation. GALLBLADDER AND BILE DUCTS: Unremarkable. PANCREAS: Coarse calcifications confined to the pancreatic head consistent with chronic pancreatitis. Similar findings identified on the prior study. No evidence of acute pancreatitis. SPLEEN: Unremarkable. ADRENALS: Unremarkable. No mass. KIDNEYS AND URETERS: Unremarkable. No hydronephrosis. No solid mass. VASCULATURE: Atherosclerotic calcification and mural plaque present. Findings are seen throughout the aorta which is non aneurysmal. BOWEL: Constipation without fecal impaction or obstruction. APPENDIX: A normal appendix is visualized in it's entirety. PERITONEUM: Unremarkable. No free fluid. No free air. LYMPH NODES: Unremarkable. No enlarged lymph nodes. BLADDER: Unremarkable. REPRODUCTIVE: Unremarkable. BONES: No acute fracture. Stable degenerative changes mid lumbar spine. OTHER FINDINGS: None. IMPRESSION: No acute findings related to/ accounting for the clinical presentation. Additional benign and/or incidental findings described above. No significant interval change compared to the prior examination(s).
[2018-04-13] MEDS: Insulin Lispro 1 UNITS/0.01 ML SC SCH (17:44)
[2018-04-13] MEDS ORDERED: Insulin Detemir 100 units/ml Vial (Levemir) SC SCH (22:00)
[2018-04-14 02:41] VITALS: RESP 20; O2SAT 96
[2018-04-14] MEDS: MethylPREDNISolone 40 mg Vial IVP SCH (05:07)
[2018-04-14 06:01] VITALS: TEMP 98.5
--- NOTE | 2018-04-14 07:54 | CP.PCM.PN ---
<Millicent Mccoy - Last Filed: 04/14/18 12:19> Subjective - Date & Time of Evaluation Date of Evaluation: 04/14/18 Time of Evaluation: 07:52 - Subjective Subjective: ID Progress Note PGY-[address] Tracy Pt is eating breakfast. (+) chills. Cough with yellow sputum. Ambulate on 2L O2 NC from bed to bathroom without shortness of breath. Objective - Vital Signs/Intake and Output Vital Signs (last 24 hours): Temp Pulse Resp BP Pulse Ox 98.5 F 76 20 102/66 96 04/14/18 06:00 04/14/18 06:00 04/14/18 06:00 04/14/18 06:00 04/14/18 02:41 Intake and Output: 04/14/18 04/14/18 06:59 18:59 Intake Total 610 Output Total 1000 Balance -390 - Medications Medications: Current Medications Abacavir Sulfate (Ziagen) 300 mg PO BID [facility]; Protocol Last Admin: 04/13/18 17:32 Dose: 300 mg Acetylcysteine (Acetylcysteine 20%) 4 ml IH BIDRESP [facility] Last Admin: 04/13/18 19:47 Dose: Not Given Albuterol/Ipratropium (Duoneb 3 Mg/0.5 Mg (3 Ml) Ud) 3 ml IH [id number] PRN PRN Reason: Shortness of Breath Alprazolam (Xanax) 0.25 mg PO TID PRN; Protocol PRN Reason: Anxiety Stop: 04/19/18 08:59 Last Admin: 04/13/18 20:41 Dose: 0.25 mg Amlodipine Besylate (Norvasc) 5 mg PO DAILY [facility] Last Admin: 04/13/18 10:28 Dose: Not Given Amylase (Pancrease 70626 U-5000 [id number] U) 1 unit PO WM [facility] Last Admin: 04/13/18 17:32 Dose: 1 unit Arformoterol Tartrate (Brovana) 15 mcg IH [id number] [facility] Last Admin: 04/13/18 19:47 Dose: Not Given Aspirin (Ecotrin) 81 mg PO DAILY [facility] Last Admin: 04/13/18 10:27 Dose: 81 mg Budesonide (Pulmicort Respules) 0.5 mg IH [id number] [facility] Last Admin: 04/13/18 19:47 Dose: Not Given Doxycycline Hyclate (Doryx) 100 mg PO Q12 [facility]; Protocol Stop: 04/21/18 12:31 Last Admin: 04/13/18 21:27 Dose: 100 mg Famotidine (Pepcid) 20 mg PO DAILY [facility] Last Admin: 04/13/18 10:27 Dose: 20 mg Furosemide (Lasix) 20 mg PO DAILY [facility] Last Admin: 04/13/18 11:42 Dose: Not Given Gabapentin (Neurontin) 300 mg PO TID [facility]; Protocol Last Admin: 04/13/18 17:31 Dose: 300 mg Cefepime HCl (Maxipime 1gm) 1 gm in 100 mls @ 100 mls/hr IVPB Q12 [facility]; Protocol Stop: 04/21/18 12:32 Last Admin: 04/13/18 21:27 Dose: 100 mls/hr Insulin Detemir (Levemir) 40 unit SC HS [facility] Last Admin: 04/13/18 21:40 Dose: Not Given Insulin Human Lispro (Humalog Low) 0 units SC ACHS [facility]; Protocol Last Admin: 04/13/18 21:40 Dose: Not Given Insulin Human Lispro (Humalog) 20 units SC AC [facility] Last Admin: 04/13/18 17:44 Dose: 20 unit Lamivudine (Epivir) 150 mg PO BID [facility]; Protocol Losartan Potassium (Cozaar) 25 mg PO DAILY [facility] Last Admin: 04/13/18 10:29 Dose: Not Given Methylprednisolone (Solu-Medrol) 30 mg IVP Q8 [facility] Last Admin: 04/14/18 05:07 Dose: 30 mg Montelukast Sodium (Singulair) 10 mg PO HS [facility] Last Admin: 04/13/18 21:27 Dose: 10 mg Non-Formulary Medication (Lipase/Protease/Amylase [Creon Dr 12,000 Units Capsule]) 1 each PO TID [facility] Last Admin: 04/13/18 17:49 Dose: Not Given Symbicort 160-4.5 Mcg Inhaler ( Home Med) 1 aer IH BID [facility] Last Admin: 04/13/18 17:49 Dose: 1 aer Raltegravir (Isentress) 400 mg PO BID [facility]; Protocol Last Admin: 04/13/18 17:32 Dose: 400 mg Spironolactone (Aldactone) 25 mg PO DAILY [facility] Last Admin: 04/13/18 10:28 Dose: Not Given - Labs Labs: 04/13/18 05:30 04/13/18 05:30 - Constitutional Appears: No Acute Distress - Head Exam Head Exam: ATRAUMATIC, NORMAL INSPECTION, NORMOCEPHALIC - Eye Exam Eye Exam: EOMI, Normal appearance, PERRL. absent: Scleral icterus Pupil Exam: NORMAL ACCOMODATION - ENT Exam ENT Exam: Mucous Membranes Moist - Neck Exam Additional comments: supple - Respiratory Exam Respiratory Exam: Clear to Ausculation Bilateral, Rhonchi (mild), NORMAL BREATHING PATTERN. absent: Rales, Wheezes - Cardiovascular Exam Cardiovascular Exam: REGULAR RHYTHM, +S1, +S2. absent: Murmur - GI/Abdominal Exam GI & Abdominal Exam: Soft, Normal Bowel Sounds. absent: Rigid, Tenderness - Extremities Exam Extremities Exam: absent: Calf Tenderness - Back Exam Back Exam: absent: CVA tenderness (L), CVA tenderness (R) - Neurological Exam Neurological Exam: Alert, Awake, Normal Gait, Oriented x3 Additional comments: Ambulate on 2L O2 without SOB from bathroom to bed - Psychiatric Exam Psychiatric exam: Normal Affect, Normal Mood - Skin Skin Exam: Dry, Warm Assessment and Plan - Assessment and Plan (Free Text) Plan: Mr Gao, 63 AAM, with chronic respiratory failure due to end-stage COPD on home O2, HIV and recent AIDS with undetectable viral loads and CD4 as low as 89, untreated hepatitis C, multiple admissions, hx polysubstance abuse, recent GI bleed, was admitted for COPD exacerbation. SIRS (04/23, HR 110) due to COPD exacerbation Questionable bacterial pneumonia - negative CXR, neg procalcitonin [place] - resolved Hyperthyroidism, TSH 0.06 HIV, CD4 213, undetectable viral load Plan: - For possible HCAP pneumonia, continue Cefepime and doxycycline (day 3) - After renal function stabilizes, should start Bactrim DS MWF for PCP prophylaxis and - For HIV, CD4 213 (on 04/06/18), undetectable viral load, add lamivudine to current dual HIV HARRT - Abacavir, Raltegravir. Follow ID specialist outpatient - For COPD exacerbation, Solumedrol taper per primary - For hyperthyroidism and DM, manage per endo Imaging/Lab: - CT A/P: No change compared to 01/29/16. Scarring and emphysema in ling bases. Chronic pancreatitis - LE Doppler b/l: No DVT - CXR: No active disease - Procalcitonin: 0.29 - BCx (04/13): neg x 1d - Sputum Cx (04/07): Normal oral lesley s/r/d/w Dr Tracy <RossanaAngely hsiehd Jose Roy - Last Filed: 04/14/18 15:09> Objective - Vital Signs/Intake and Output Vital Signs (last 24 hours): Temp Pulse Resp BP Pulse Ox 98.5 F 98 H 20 120/73 96 04/14/18 06:00 04/14/18 10:00 04/14/18 06:00 04/14/18 09:39 04/14/18 02:41 Intake and Output: 04/14/18 04/14/18 06:59 18:59 Intake Total 610 100 Output Total 1000 Balance -390 100 - Labs Labs: 04/13/18 05:30 04/13/18 05:30 Assessment and Plan - Assessment and Plan (Free Text) Plan: Infectious diseases Attending Physician Attestation Patient seen and examined, discussed with medical assistant cardiology. I have reviewed the patient's history of present illness, past medical, social, personal and family histories, pertinent physical exam findings, course so far in this hospital admission, pertinent laboratory and imaging results. I agree with the above findings, assessment and plan. In addition, continue Cefepime and Doxycycline to complete 3-5 day course for COPD exacerbation. Continue cART for chronic HIV infection. Patient refusing to have biopsy of lung mass.
[2018-04-14] MEDS: Arformoterol 15 mcg/2 ml Inh Sol IH SCH (07:55)
[2018-04-14] MEDS: Budesonide 0.5 mg/2 ml Inhal Susp UD IH SCH (07:55)
[2018-04-14] MEDS: Acetylcysteine 20% Inhal Soln (4ml) IH SCH (07:55)
[2018-04-14] MEDS ORDERED: MethylPREDNISolone 40 mg Vial IVP SCH (08:13)
[2018-04-14] MEDS: Insulin Lispro (humaLOG) LOW Coverage SC SCH (08:20)
[2018-04-14] MEDS: Amylase/Lipase/Protease 5,000 Units ECC PO SCH (08:27)
[2018-04-14] MEDS: Insulin Lispro 1 UNITS/0.01 ML SC SCH (08:27)
--- NOTE | 2018-04-14 09:15 | PN ---
DATE: 04/13/2018 PULMONARY PROGRESS NOTE REFERRING PHYSICIAN: Dr. Lucio Saucedo SUBJECTIVE: He is lying in the bed at 45 degrees. Feels little better. Decreased cough, shortness of breath. No nausea, vomiting, diarrhea. No leg swelling. OBJECTIVE: GENERAL: In no acute distress. VITAL SIGNS: Temperature is 98, heart rate 72, respiratory rate is 18, blood pressure 114/79, pulse ox 94% on 2 L nasal cannula. HEENT: Moist mucous membrane. Crowded airway. NECK: Supple. No JVD. LUNGS: Have prolonged expiratory phase of wheezing. HEART: S1 and S2. ABDOMEN: Soft, nontender, no organomegaly. EXTREMITIES: No edema. NEUROLOGIC: Awake, alert and follows simple command. MEDICATIONS: He is on Mucomyst inhaled twice a day, Aldactone 25 mg daily, Brovana inhaled twice a day, Cozaar 25 mg daily, doxycycline 100 mg twice a day, DuoNeb q.6 hours p.r.n., Ecotrin 81 mg daily, insulin coverage, Isentress 400 mg twice a day, Lasix 20 mg daily, Levemir 40 units SubQ at bedtime, he is on lipase, protease and amylase 1 tablet three times a day, cefepime 1 g IV q.12 hours, gabapentin 300 mg three times a day, Norvasc 5 mg daily, Pepcid 20 mg daily, Pulmicort inhaled twice a day, Singulair 10 mg daily, Solu-Medrol 30 mg IV q.8 hours, Symbicort inhaled twice a day, Xanax 0.25 mg three times a day, Ziagen 300 mg twice a day. LABORATORY DATA: Shows hemoglobin 11, hematocrit 35.6, WBC 12.1, platelet count is 277. Sodium 138, potassium 4, chloride 101, bicarbonate 31, BUN 31, creatinine 1, glucose 122. Hemoglobin A1c 9.4, calcium 9.5, magnesium 2.1, AST 16, ALT 29, alk phos is 86. Albumin is 3.5. Cholesterol is 172. TSH is 0.06. CT of the abdomen and pelvis done today shows no active findings related to accounting for clinical presentation. IMPRESSION AND PLAN: Chronic obstructive lung disease, history of substance abuse, human immunodeficiency virus positive, diabetes, hypertension, chronic pancreatitis, arthritis, right lung mass with mediastinal and tracheal adenopathy. Pulmonary point of view, continue IV and inhaled bronchodilator, antibiotics as per Infectious Diseases, gastric prophylaxis, deep venous thrombosis prophylaxis. The patient has known right lung mass, refused biopsy, understanding risk of cancer and causing . Thank you and we will follow with you. Ventura Browning MD
--- NOTE | 2018-04-14 09:24 | PN ---
DATE: 04/14/2018 SUBJECTIVE: The patient had very hard time since this morning. He has become very demanding. He is not listening. I tried to explain things to him. He is refusing test this morning. He has multiple issues from SIRS, acute kidney injury, AIDS, HIV, pneumonia, and untreated hepatitis. He is noncompliant. He is being seen by Pulmonary, Infectious Disease, Endocrinology. I called in GI to see if he would take some treatment for his untreated hepatitis. He is on acetylcysteine, Aldactone, Brovana, Symbicort, Cozaar, Doryx, DuoNeb, Ecotrin, Epivir, Humalog, Isentress, Lasix, Levemir, Pancrease, Maxipime, Neurontin, Norvasc, Protease, Pepcid, Pulmicort, Solu-Medrol down to 30 mg every 8 hours, I have brought it down to 20 mg, Xanax, and Ziagen. I am ordering labs for tomorrow too. He refuses labs for today. LABORATORY DATA: Yesterday's labs was 12.1 white count, it was 31 BUN, creatinine 1, GFR is greater than 60, sugar is 122, hemoglobin A1c is 9.4, very noncompliant. Troponin I was less than 0.01, TSH is 0.06. ASSESSMENT AND PLAN: I will call in Dr. Mckeon to reevaluate that is already on the case for his diabetes. We will check the labs tomorrow. Hopefully, agrees the treatment for his hepatitis and we will continue with IV antibiotics as per Infections Disease. CAT scan of the abdomen and pelvis was okay. Chest x-ray was okay on the . Hopefully, he will start to come around and take the tests and do the treatment. Lucio Saucedo DO
[2018-04-14] MEDS: LIPASE PO SCH (09:41)
[2018-04-14] MEDS: [UNRECOGNIZED DRUG - OTHER] PO SCH (09:41)
[2018-04-14] MEDS: PROTEASE PO SCH (09:41)
[2018-04-14] MEDS: AMYLASE PO SCH (09:41)
[2018-04-14] MEDS: Cefepime 1gm in NS 100ml 1 GM/100 ML BAG IVPB SCH (09:42)
[2018-04-14 09:44] VITALS: BP 120/73
[2018-04-14] MEDS: Symbicort 160-4.5 Mcg Inhaler (HOME MED) IH SCH (10:57)
--- NOTE | 2018-04-14 10:58 | CP.PCM.PN ---
Subjective - Date & Time of Evaluation Date of Evaluation: 04/14/18 Time of Evaluation: 08:25 - Subjective Subjective: Endocrinology Progress Note - Dr. Mckeon Patient was seen and examined at bedside. Patient found to be resting comfortably, no acute complaints at this time. Patient tolerating oral intake and moving bowels and bladder regularly. Patient admits to productive cough with whitish - yellow sputum. Patient denied fever, chest pains, nausea, vomiting, dysuria. Objective - Vital Signs/Intake and Output Vital Signs (last 24 hours): Temp Pulse Resp BP Pulse Ox 98.5 F 84 20 120/73 96 04/14/18 06:00 04/14/18 09:39 04/14/18 06:00 04/14/18 09:39 04/14/18 02:41 Intake and Output: 04/14/18 04/14/18 06:59 18:59 Intake Total 610 Output Total 1000 Balance -390 - Medications Medications: Current Medications Abacavir Sulfate (Ziagen) 300 mg PO BID [facility]; Protocol Last Admin: 04/14/18 09:39 Dose: 300 mg Acetylcysteine (Acetylcysteine 20%) 4 ml IH BIDRESP [facility] Last Admin: 04/14/18 07:55 Dose: Not Given Albuterol/Ipratropium (Duoneb 3 Mg/0.5 Mg (3 Ml) Ud) 3 ml IH [id number] PRN PRN Reason: Shortness of Breath Alprazolam (Xanax) 0.25 mg PO TID PRN; Protocol PRN Reason: Anxiety Stop: 04/19/18 08:59 Last Admin: 04/13/18 20:41 Dose: 0.25 mg Amlodipine Besylate (Norvasc) 5 mg PO DAILY [facility] Last Admin: 04/14/18 09:39 Dose: 5 mg Amylase (Pancrease 78419 U-5000 U-[id number] U) 1 unit PO WM [facility] Last Admin: 04/14/18 08:27 Dose: 1 unit Arformoterol Tartrate (Brovana) 15 mcg IH [id number] [facility] Last Admin: 04/14/18 07:55 Dose: Not Given Aspirin (Ecotrin) 81 mg PO DAILY [facility] Last Admin: 04/14/18 09:39 Dose: 81 mg Budesonide (Pulmicort Respules) 0.5 mg IH [id number] [facility] Last Admin: 04/14/18 07:55 Dose: Not Given Doxycycline Hyclate (Doryx) 100 mg PO Q12 [facility]; Protocol Stop: 04/21/18 12:31 Last Admin: 04/14/18 09:40 Dose: 100 mg Famotidine (Pepcid) 20 mg PO DAILY [facility] Last Admin: 04/14/18 09:40 Dose: 20 mg Furosemide (Lasix) 20 mg PO DAILY [facility] Last Admin: 04/14/18 09:38 Dose: 20 mg Gabapentin (Neurontin) 300 mg PO TID [facility]; Protocol Last Admin: 04/14/18 09:40 Dose: 300 mg Cefepime HCl (Maxipime 1gm) 1 gm in 100 mls @ 100 mls/hr IVPB Q12 [facility]; Protocol Stop: 04/21/18 12:32 Last Admin: 04/14/18 09:42 Dose: 100 mls/hr Insulin Detemir (Levemir) 40 unit SC [facility] Last Admin: 04/13/18 21:40 Dose: Not Given Insulin Human Lispro (Humalog Low) 0 units SC ACHS [facility]; Protocol Last Admin: 04/14/18 08:20 Dose: Not Given Insulin Human Lispro (Humalog) 20 units SC AC [facility] Last Admin: 04/14/18 08:27 Dose: 20 unit Lamivudine (Epivir) 150 mg PO BID [facility]; Protocol Last Admin: 04/14/18 09:39 Dose: 150 mg Losartan Potassium (Cozaar) 25 mg PO DAILY [facility] Last Admin: 04/14/18 09:39 Dose: 25 mg Methylprednisolone (Solu-Medrol) 20 mg IVP Q8 [facility] Montelukast Sodium (Singulair) 10 mg PO HS [facility] Last Admin: 04/13/18 21:27 Dose: 10 mg Non-Formulary Medication (Lipase/Protease/Amylase [Creon Dr 12,000 Units Capsule]) 1 each PO TID [facility] Last Admin: 04/14/18 09:41 Dose: Not Given Symbicort 160-4.5 Mcg Inhaler ( Home Med) 1 aer IH BID [facility] Last Admin: 04/13/18 17:49 Dose: 1 aer Raltegravir (Isentress) 400 mg PO BID [facility]; Protocol Last Admin: 04/14/18 09:43 Dose: 400 mg Spironolactone (Aldactone) 25 mg PO DAILY [facility] Last Admin: 04/14/18 09:39 Dose: 25 mg - Labs Labs: 04/13/18 05:30 04/13/18 05:30 - Constitutional Appears: No Acute Distress - Head Exam Head Exam: ATRAUMATIC, NORMAL INSPECTION, NORMOCEPHALIC - Eye Exam Eye Exam: EOMI, Normal appearance, PERRL Pupil Exam: NORMAL ACCOMODATION, PERRL - ENT Exam ENT Exam: Mucous Membranes Dry - Respiratory Exam Respiratory Exam: Decreased Breath Sounds - Cardiovascular Exam Cardiovascular Exam: REGULAR RHYTHM, +S1, +S2. absent: Murmur - GI/Abdominal Exam GI & Abdominal Exam: Soft, Normal Bowel Sounds. absent: Tenderness - Neurological Exam Neurological Exam: Alert, Awake, CN II-XII Intact, Normal Gait, Oriented x3 - Psychiatric Exam Psychiatric exam: Normal Affect, Normal Mood - Skin Skin Exam: Dry, Intact, Normal Color, Warm Assessment and Plan - Assessment and Plan (Free Text) Assessment: 63 M with recent uncontrolled DM in the setting of COPD exacerbation on iv ster oid therapy with expected labile blood glucose. COPD Exacerbation HIV HTN [place] Uncontrolled DM subclinical hyperthyroidism From endocrionology standpoint, will medically optimize glycemic control by continue 14 u levemir HS, and provide coverage with humalog 20 u TID AC, coverage as needed and hypoglycemic protocol. Patients bg have become more stable.
[2018-04-14 11:36] VITALS: PULSE 98
--- NOTE | 2018-04-14 12:48 | PN ---
DATE: 04/14/2018 PULMONARY PROGRESS NOTE REFERRING PHYSICIAN: Dr. Lucio Saucedo. SUBJECTIVE: The patient is sitting up at bedside. No acute distress. Reports feeling better. No shortness of breath. Does have some cough. No headache, rhinitis, chest pain, abdominal pain, leg pain, leg swelling, diarrhea reported. The patient reports wanting to go home. OBJECTIVE: GENERAL: No acute distress. VITAL SIGNS: Blood pressure 120/73, pulse 84, temperature 98.5, and oxygen saturation 96%. HEENT: Moist mucous membrane. Crowded airway. NECK: Supple. No JVD. LUNGS: Prolonged expiratory phase, few rhonchi bilaterally. CARDIOVASCULAR: S1 and S2 audible. ABDOMEN: Soft and nontender. No distention. No organomegaly. EXTREMITIES: No lower extremity edema. NEUROLOGIC: Awake, alert, and verbal. Follows simple commands. MEDICATIONS: Reviewed. Abacavir 300 mg twice a day, Mucomyst 4 mL inhalation twice a day, DuoNeb 3 mL inhalation every 6 hours p.r.n., Xanax 0.25 mg three times a day p.r.n., Norvasc 5 mg daily, amylase 1 unit p.o Brovana 15 mcg every 12 hours, aspirin 81 mg daily, Pulmicort 0.5 mg inhalation every 12 hours, cefepime 1 g every 12 hours, doxycycline 100 mg every 12 hours, Pepcid 20 mg daily, Lasix 20 mg daily, gabapentin 300 mg three times a day, Levemir 40 units subcutaneous at bedtime, Humalog sliding scale a.c. and at bedtime, Humalog 20 units subcutaneus a.c., Epivir 150 mg twice a day, Cozaar 25 mg daily, Solu-Medrol 20 mg IV push every 8 hours, Singulair 10 mg at bedtime, Creon 11593 units three times a day, Isentress 400 mg twice a day, and Aldactone 25 mg daily. LABORATORY DATA: Reviewed. No new labs since yesterday. IMPRESSION AND PLAN: Chronic obstructive lung disease, history of substance abuse, human immunodeficiency virus positive, diabetes, hypertension, chronic pancreatitis, arthritis, right lung mass with mediastinal and tracheal adenopathy. The patient continues to refuse to have lung mass biopsy. The patient verbalized understanding that lung mass may be cancerous and could lead to . Pulmonary point of view, we will continue bronchodilators, antibiotics as per Infectious Diseases, gastric prophylaxis, and deep venous thrombosis prophylaxis This patient was seen and examined with Dr. Browning. Discussed assessment and plan as described above. Thank you for this consult. We will follow with you. Keith Bowens APN [place] Browning MD JOCELYN
--- NOTE | 2018-04-14 20:19 | PN ---
DATE: 04/14/2018 ENDOCRINOLOGY FOLLOWUP NOTE ROOM: 269 SUBJECTIVE: This is a 63-year-old male with recent acute exacerbation of COPD, presenting here with marked hyperglycemic accelerations from the intercurrent IV steroid therapy as given and was started on a basal and bolus insulin drug regimen, inpatient diabetic management. His glycemic levels have improved as his IV steroids have been tapered down and the latest glucose levels have ranged from 122-201 and 322 mg/dL. His latest chemistry showed a BUN of 31, sodium 138, potassium 4, chloride 101, CO2 31, glucose 122 and creatinine 1. His A1c is elevated at 9.4% indicative of suboptimal metabolic control of his diabetic condition even prior to this admission and clearly requiring at least oral hypoglycemic drug therapy given in combination. His TSH was 0.06 again indicative of the intercurrent IV steroids causing transient TSH suppression thereof, although we have to exclude any underlying subclinical hyperthyroidism, which can be done only on the outpatient with repeat thyroid studies to be undertaken off steroid therapy. At this time, we will continue the insulin regimen as given only for inpatient diabetic management and since he is scheduled for discharge would recommend a combination of metformin given 500 mg b.i.d. and Januvia at 100 mg once daily as ordered for outpatient diabetic management. He has been advised to follow with his medical doctor for ongoing medical and diabetic followup. Mariposa Mckeon MD
== END 2018-04-14 12:10 | disposition left against medical advice (07) | DRG 191 ==
LOC: ED 04:31 → ERH 06:44 → 2RNO 09:04
PROVIDERS: ADMIT Family Medicine; ATTEND Family Medicine
PROC: 3E0F7GC Introduction of Other Therapeutic Substance into Respiratory Tract, Via Natural or Artificial Opening (ICD-10-PCS; principal; 2018-04-12)
DX: J44.1 Chronic obstructive pulmonary disease with (acute) exacerbation (principal); B20 Human immunodeficiency virus [HIV] disease; R65.10 Systemic inflammatory response syndrome (SIRS) of non-infectious origin without acute organ dysfunction; K86.1 Other chronic pancreatitis; J96.10 Chronic respiratory failure, unspecified whether with hypoxia or hypercapnia; F11.90 Opioid use, unspecified, uncomplicated; B19.20 Unspecified viral hepatitis C without hepatic coma; E11.65 Type 2 diabetes mellitus with hyperglycemia; E05.90 Thyrotoxicosis, unspecified without thyrotoxic crisis or storm; I10 Essential (primary) hypertension; D64.9 Anemia, unspecified; R91.8 Other nonspecific abnormal finding of lung field; G47.33 Obstructive sleep apnea (adult) (pediatric); F17.200 Nicotine dependence, unspecified, uncomplicated; M19.90 Unspecified osteoarthritis, unspecified site; Z79.4 Long term (current) use of insulin; Z99.81 Dependence on supplemental oxygen; Z91.19 Patient's noncompliance with other medical treatment and regimen; Z79.82 Long term (current) use of aspirin

== ENCOUNTER 2018-04-23 19:52 | Inpatient (IN) | payer MEDICARE, MEDICAID ==
--- NOTE | 2018-04-23 20:09 | ED PDOC ---
Arrival/HPI - General Chief Complaint: Shortness Of Breath Time Seen by Provider: 04/23/18 19:55 Historian: Patient - History of Present Illness Narrative History of Present Illness (Text): 04/23/18 20:09 Charly Gao is a 63 year old male, whose past medical history includes HIV on HAART, COPD on home O2, hypertension, diabetes, hepatitis C, pancreatitis, arthritis, and anxiety, who presents to the Emergency department brought in by EMS for shortness of breath. Patient states he has been experiencing progressively worsening shortness of breath with associated productive cough today. Patient was recently admitted to the hospital on 04/12/2018 for similar complaints. Patient denies any fever, chills, nausea, vomiting, diarrhea, headache, dizziness, or any other complaints. Symptom Onset: Gradual Symptom Course: Unchanged Activities at Onset: Light Context: Home Past Medical History - Provider Review Nursing Documentation Reviewed: Yes - Infectious Disease Hx of Infectious Diseases: None - Tetanus Immunization Tetanus Immunization: Unknown - Cardiac Hx Hypertension: Yes - Pulmonary Hx Asthma: No (denies) Hx Sleep Apnea: Yes (occasional uses bipap) - Neurological Hx Seizures: No - HEENT Hx HEENT Disorder: Yes Hx Cataracts: Yes (right eye sx) - Renal Hx Renal Disorder: No - Endocrine/Metabolic Hx Diabetes Mellitus Type 1: Yes - Hematological/Oncological Hx Blood Disorders: Yes Hx Anemia: Yes (blood transfusion) Hx Hepatitis C: Yes - Integumentary Hx Dermatological Disorder: No - Musculoskeletal/Rheumatological Hx Arthritis: Yes - Gastrointestinal Hx Pancreatitis: Yes - Genitourinary/Gynecological Hx Sexually Transmitted Diseases: No - Psychiatric Hx Anxiety: Yes Hx Substance Use: No (denies) - Surgical History Hx Orthopedic Surgery: No - Anesthesia Hx Anesthesia: Yes Hx Anesthesia Reactions: No Hx Malignant Hyperthermia: No - Suicidal Assessment Feels Threatened In Home Enviroment: No Family/Social History - Physician Review Nursing Documentation Reviewed: Yes Family/Social History: Unknown Family HX Smoking Status: Former Smoker Hx Alcohol Use: No (denies) Hx Substance Use: No (denies) Substance used: h/o heroine use Allergies/Home Meds Allergies/Adverse Reactions: Allergies No Known Allergies Allergy (Verified 04/23/18 20:00) Home Medications: Home Meds Medication Instructions Recorded Confirmed Aspirin [Ecotrin] 81 mg PO DAILY 03/24/18 04/23/18 Review of Systems - Physician Review All systems were reviewed & negative as marked: Yes - Review of Systems Constitutional: Normal. absent: Fevers Eyes: Normal ENT: Normal Respiratory: SOB, Cough Gastrointestinal: Normal. absent: Abdominal Pain, Diarrhea, Nausea, Vomiting Genitourinary Male: Normal. absent: Dysuria, Frequency, Hematuria, Urinary Output Changes Musculoskeletal: Normal. absent: Back Pain, Neck Pain Skin: Normal. absent: Rash Neurological: Normal. absent: Headache, Dizziness Endocrine: Normal Hemo/Lymphatic: Normal Psychiatric: Normal Physical Exam Vital Signs Reviewed: Yes Vital Signs Temp Pulse Resp BP Pulse Ox 04/23/18 20:02 98.0 F 117 H 20 103/72 100 Temperature: Afebrile Blood Pressure: Normal Pulse: Tachycardic Respiratory Rate: Normal Appearance: Positive for: Non-Toxic Pain Distress: None Mental Status: Positive for: Alert and Oriented X 3 - Systems Exam Head: Present: Atraumatic, Normocephalic Pupils: Present: PERRL Extroacular Muscles: Present: EOMI Conjunctiva: Present: Normal Mouth: Present: Moist Mucous Membranes Neck: Present: Normal Range of Motion Respiratory/Chest: Present: Wheezes (Wheezing bilaterally), Rhonchi (Rhonchi bilaterally). No: Respiratory Distress, Accessory Muscle Use Cardiovascular: Present: Regular Rate and Rhythm, Normal S1, S2. No: Murmurs Abdomen: No: Tenderness, Distention, Peritoneal Signs Back: Present: Normal Inspection Upper Extremity: Present: Normal Inspection. No: Cyanosis, Edema Lower Extremity: Present: Normal Inspection. No: Edema Neurological: Present: GCS=15, CN II-XII Intact Skin: Present: Warm, Dry, Normal Color. No: Rashes Psychiatric: Present: Alert, Oriented x 3 Medical Decision Making ED Course and Treatment: 04/23/18 20:09 Impression: 63 year old male complaining of shortness of breath and productive cough. Plan: -- EKG -- Chest X-ray -- Labs, cardiac enzymes, BNP -- Duoneb -- Solu-medrol -- Reassess and disposition Prior Visits: Notes and results from previous visits were reviewed. Progress Notes: Reviewed EKG, sinus tachycardia at [address] bpm[address] Non-specific ST/T wave changes. 04/23/18 21:33 Chest X-ray, reviewed: No acute processes. 04/23/18 22:17 Case discussed with , who is aware and agrees with plan. Accepts patient into her service. Patient will be admitted to [facility] for COPD exacerbation and bronchitis. - EKG Interpretation Interpreted by ED Physician: Yes Type: 12 lead EKG - Scribe Statement The provider has reviewed the documentation as recorded by the Scribe Randi Buckley Provider Scribe Attestation: All medical record entries made by the Scribe were at my direction and personally dictated by me. I have reviewed the chart and agree that the record accurately reflects my personal performance of the history, physical exam, medical decision making, and the department course for this patient. I have also personally directed, reviewed, and agree with the discharge instructions and disposition. Disposition/Present on Arrival - Present on Arrival Any Indicators Present on Arrival: No History of DVT/PE: No History of Uncontrolled Diabetes: No Urinary Catheter: No History of Decub. Ulcer: No History Surgical Site Infection Following: None - Disposition Have Diagnosis and Disposition been Completed?: Yes Diagnosis: COPD exacerbation, Bronchitis Disposition: HOSPITALIZED Disposition Time: 22:24 Patient Plan: Admission Condition: STABLE Referrals: PCP,NO [Primary Care Provider] - Follow up with primary Forms: [employer] (Macedonian)
[2018-04-23] MEDS ORDERED: Albuterol-Ipratrop 3 mg / 0.5 (3 ml) UD IH STA ×3 (20:10→22:11)
[2018-04-23 21:03] LABS: HEMOGLOBIN 10.9 g/dL (14.0-18.0); MEAN CELL VOLUME 81.8 fl (80.0-105.0); MEAN CORPUSCULAR HEMOGLOBIN 25.1 pg (25.0-35.0); MEAN CORPUSCULAR HGB CONC 30.6 g/dl (31.0-37.0); MEAN PLATELET VOLUME 9.5 fl (7.0-11.0); RBC 4.35 10^6/uL (3.5-6.1); RED CELL DISTRIBUTION WIDTH 16.7 % (11.5-14.5); WHITE BLOOD COUNT 11.7 10^3/uL (4.5-11.0)
[2018-04-23 21:11] LABS: INR 1.27; PARTIAL THROMBOPLASTIN TIME 29.4 Seconds (25.1-36.5); PROTHROMBIN TIME 14.5 SECONDS (9.4-12.5)
[2018-04-23 21:25] LABS: B-TYPE NATRIURETIC PEPTIDE 176 pg/mL (0-450); TROPONIN I < 0.01 ng/mL
[2018-04-23 21:43] LABS: ALBUMIN 4.1 g/dL (3.0-4.8); ALT/SGPT 24 U/L (7-56); AST/SGOT 35 U/L (17-59); BLOOD UREA NITROGEN 20 mg/dL (7-21); CALCIUM 9.3 mg/dL (8.4-10.5); GFR NON-AFRICAN AMERICAN 38
[2018-04-23] MEDS ORDERED: cefTRIAXone 1 gm 1 GM/100 ML BAG IV STA (22:19)
[2018-04-23] MEDS ORDERED: Azithromycin 500MG/NS 250ml 500 MG/250 ML BAG IV STA (22:19)
[2018-04-24 03:30] VITALS: BMI 22.8
[2018-04-24 08:47] LABS: BASO # 0.01 K/mm3 (0.0-2.0); BASO % 0.2 % (0.0-3.0); GRAN # 4.42 (1.4-6.5); GRAN % 88.8 % (50.0-68.0); HEMOGLOBIN 9.7 g/dL (14.0-18.0); LYMPH # 0.5 (1.2-3.4); LYMPH % 10.2 % (22.0-35.0); MEAN CELL VOLUME 80.6 fl (80.0-105.0); MEAN CORPUSCULAR HEMOGLOBIN 24.7 pg (25.0-35.0); MEAN CORPUSCULAR HGB CONC 30.7 g/dl (31.0-37.0); MEAN PLATELET VOLUME 9.4 fl (7.0-11.0); MONO % 0.8 % (1.0-6.0); RBC 3.92 10^6/uL (3.5-6.1); RED CELL DISTRIBUTION WIDTH 16.8 % (11.5-14.5)
--- NOTE | 2018-04-24 10:03 | CARD ---
APPROVED REPORT Date of service: 04/23/2018 EKG Measurement Heart [id number] <Conclusion> Sinus tachycardia Right atrial enlargement Borderline ECG
--- NOTE | 2018-04-24 12:18 | RAD ---
Date of service: 04/23/2018 HISTORY: sob COMPARISON: 04/12/2018 FINDINGS: LUNGS: No active pulmonary disease. PLEURA: No significant pleural effusion identified, no pneumothorax apparent. CARDIOVASCULAR: No aortic atherosclerotic calcification present. Normal cardiac size. No pulmonary vascular congestion. OSSEOUS STRUCTURES: No significant abnormalities. VISUALIZED UPPER ABDOMEN: Normal. OTHER FINDINGS: None. IMPRESSION: No active disease.
[2018-04-24] MEDS: Amylase/Lipase/Protease 5,000 Units ECC PO SCH ×2 (13:06→17:22)
[2018-04-24] MEDS ORDERED: Albuterol-Ipratrop 3 mg / 0.5 (3 ml) UD IH SCH (14:00)
[2018-04-24] MEDS ORDERED: Insulin Reg-LOW-Coverage SC SCH (16:30)
[2018-04-24] MEDS ORDERED: Insulin Regular 1 UNITS/0.01 ML ML SC ONE (16:33)
[2018-04-24] MEDS ORDERED: Dextrose 50% SYRINGE Inj (50 ml) IV PRN ×2 (16:34→22:09)
[2018-04-24] MEDS: RALTEGRAVIR 600 MG PO SCH (17:23)
[2018-04-24] MEDS: Albuterol-Ipratrop 3 mg / 0.5 (3 ml) UD IH PRN (17:55)
[2018-04-24] MEDS: Insulin Reg-MEDIUM-Coverage SC SCH ×2 (17:57→22:15)
[2018-04-24] MEDS: Budesonide 0.25 mg/2 ml Inhal Susp UD IH SCH (20:43)
[2018-04-24] MEDS: Arformoterol 15 mcg/2 ml Inh Sol IH SCH (20:43)
[2018-04-24] MEDS ORDERED: Insulin Detemir 100 units/ml Vial (Levemir) SC SCH ×2 (22:00)
--- NOTE | 2018-04-24 22:12 | CP.PCM.PCO ---
<Gerardo Espinoza - Last Filed: 04/24/18 22:12> Physician Communication Note - Physician Communication Note Physician Communication Note: Patient's blood glucose over 500. Patient switched to high SSI <Shannon Bradley - Last Filed: 04/25/18 02:49> Attending/Attestation - Attestation I have personally seen and examined this patient.: No I have fully participated in the care of the patient.: Yes I have reviewed all pertinent clinical information: Yes
[2018-04-25] MEDS: guaiFENesin DM 200 mg-20 mg/10 ml UD PO PRN ×3 (01:44→21:54)
[2018-04-25] MEDS ORDERED: Insulin Detemir 100 units/ml Vial (Levemir) SC SCH ×2 (07:30→08:00)
[2018-04-25] MEDS: Albuterol-Ipratrop 3 mg / 0.5 (3 ml) UD IH SCH ×3 (07:48→19:50)
[2018-04-25] MEDS: Arformoterol 15 mcg/2 ml Inh Sol IH SCH ×2 (07:51→19:50)
[2018-04-25] MEDS: Budesonide 0.25 mg/2 ml Inhal Susp UD IH SCH ×2 (07:51→19:50)
[2018-04-25 08:01] LABS: MEAN CORPUSCULAR HEMOGLOBIN 24.4 pg (25.0-35.0); MEAN CORPUSCULAR HGB CONC 30.1 g/dl (31.0-37.0); RBC 4.1 10^6/uL (3.5-6.1); RED CELL DISTRIBUTION WIDTH 16.7 % (11.5-14.5); WHITE BLOOD COUNT 10.4 10^3/uL (4.5-11.0)
[2018-04-25 08:19] LABS: ALBUMIN 3.8 g/dL (3.0-4.8); ALT/SGPT 25 U/L (7-56); AST/SGOT 27 U/L (17-59); BLOOD UREA NITROGEN 31 mg/dL (7-21); CALCIUM 9.3 mg/dL (8.4-10.5); GFR NON-AFRICAN AMERICAN 51
[2018-04-25] MEDS: Insulin Reg-HIGH-Coverage SC SCH ×4 (08:57→22:24)
[2018-04-25] MEDS: Amylase/Lipase/Protease 5,000 Units ECC PO SCH ×3 (09:49→17:28)
[2018-04-25] MEDS: cefTRIAXone 1 gm 1 GM/100 ML BAG IVPB SCH (09:50)
[2018-04-25] MEDS: RALTEGRAVIR 600 MG PO SCH ×2 (09:52→17:29)
[2018-04-25] MEDS ORDERED: Insulin Regular 1 UNITS/0.01 ML ML IV ONE (12:03)
[2018-04-25] MEDS ORDERED: Insulin Regular 1 UNITS/0.01 ML ML SC ONE (12:44)
[2018-04-25] MEDS: MethylPREDNISolone 40 mg Vial IVP SCH ×2 (13:09→21:55)
--- NOTE | 2018-04-25 16:47 | PN ---
DATE: 04/25/2018 SUBJECTIVE: This 63-year-old male remains hospitalized with uncontrolled insulin-dependent diabetes mellitus. This case was reviewed in detail with nurse Larry Diaz registered nurse. The patient remains weak and deconditioned with a cough nonproductive of sputum. PHYSICAL EXAMINATION: VITAL SIGNS: This morning his temperature is 97.6, respirations 16, pulse 75 and blood pressure 104/69 with a pulse ox of 99%. HEENT: Head: Normocephalic, atraumatic. Eyes no icterus. Ears: Clear. Throat: Noninjected. NECK: Supple. HEART: S1, S2 regular. LUNGS: With rhonchi and expiratory wheezing posteriorly which improved with coughing. ABDOMEN: Soft. EXTREMITIES: No edema. SKIN: Without rash. NEUROLOGIC: Deconditioned. VASCULAR: Legs warm to touch. PSYCHOLOGIC: Alert and oriented x3. LABORATORY DATA: White count 10,400, hemoglobin 10, hematocrit 33.2, platelets 245,000. Sodium 133, K 4.4, chloride 91, bicarb 30, BUN 31, creatinine 1.4, random blood sugar was greater than 500 with a calcium of 9.3. Bilirubin 0.4, AST 27, ALT 25 and alk phos of 90. Influenza A and B serologies are negative. IMPRESSION: A 63-year-old male with exacerbation of chronic obstructive pulmonary disease, now with uncontrolled insulin-dependent diabetes mellitus and history of human immunodeficiency virus, asthma, chronic hypertension, peripheral neuropathy, pancreatic insufficiency, peptic ulcer disease with gastroesophageal reflux disease, anemia of chronic disease and noncompliance with diet, medication and medical followup in his past. PLAN: As discussed with nurse Diaz, the patient's Solu-Medrol will be decreased to 30 mg IV every 8 hours. He will be given regular insulin 10 units IV x1 dose now. His insulin coverage high-dose scale has been increased to every 4 hours and his Levemir has been increased to 25 units a.c. breakfast and dinner. Based on clinical progress, additional diagnostic workup and testing will be entertained. Greater than 35 minutes was spent in the care and management, review of labs, orders, x-rays and discussion of this patient with himself and nursing. All questions were answered. Natalie Longoria MD [facility] # [id number]
[2018-04-25] MEDS: Insulin Detemir 100 units/ml Vial (Levemir) SC SCH (22:05)
[2018-04-26] MEDS: MethylPREDNISolone 40 mg Vial IVP SCH ×3 (05:26→21:53)
[2018-04-26] MEDS: Arformoterol 15 mcg/2 ml Inh Sol IH SCH ×2 (07:58→19:19)
[2018-04-26] MEDS: Budesonide 0.25 mg/2 ml Inhal Susp UD IH SCH ×2 (07:58→19:20)
[2018-04-26] MEDS: Albuterol-Ipratrop 3 mg / 0.5 (3 ml) UD IH SCH ×3 (07:58→19:19)
[2018-04-26] MEDS: Insulin Reg-HIGH-Coverage SC SCH ×4 (08:52→22:05)
[2018-04-26] MEDS: Insulin Detemir 100 units/ml Vial (Levemir) SC SCH ×2 (08:53→22:20)
[2018-04-26] MEDS ORDERED: Nitroglycerin 2% Ointment Foilpak UD TOP PRN (10:12)
[2018-04-26] MEDS: Amylase/Lipase/Protease 5,000 Units ECC PO SCH ×3 (10:13→17:36)
[2018-04-26] MEDS: cefTRIAXone 1 gm 1 GM/100 ML BAG IVPB SCH (10:15)
[2018-04-26] MEDS: RALTEGRAVIR 600 MG PO SCH ×2 (10:18→17:43)
[2018-04-26] MEDS: Sodium Chloride 0.9% 1,000 ML IV SCH (10:27)
[2018-04-26] MEDS: Albuterol-Ipratrop 3 mg / 0.5 (3 ml) UD IH PRN (11:43)
--- NOTE | 2018-04-26 11:53 | PN ---
DATE: 04/26/2018 SUBJECTIVE: This 63-year-old male was examined at bedside on the morning of 04/26/2018 and this case was discussed with nurse, June Blue, registered nurse. The patient remains weak and deconditioned. He is congested and experiencing uncontrolled insulin-dependent diabetes mellitus. Of note, the patient is hypotensive with no symptoms and review of his medication profile reveals that the patient is taking Aldactone, Norvasc, and Cozaar. I have placed a instructions with nurse Mirza, that if his systolic blood pressure should be less than 110 to hold all future doses of Aldactone, Cozaar, Norvasc and the patient will be started at present on 0.9 saline at 80 mL/hour. The patient also had a stormy course yesterday afternoon with accelerated uncontrolled insulin-dependent diabetes mellitus that was treated with parenteral insulin and adjustment of his diabetic insulin protocol as well as adjustment of subcu Levemir. At present, he denies any fever or chills. OBJECTIVE: VITAL SIGNS: His temperature is 97.6, respirations 18, pulse 77, and blood pressure 93/60 with a pulse ox of 100% on 2 liters nasal O2. HEENT: Head; normocephalic, atraumatic. Eyes; no icterus. Ears; clear. Throat; non-injected. NECK: Supple. HEART: S1, S2. LUNGS: With rhonchi bilaterally with expiratory wheezing that clears with coughing. ABDOMEN: Soft. EXTREMITIES: No edema. SKIN: Without rash. NEUROLOGIC: Deconditioned. VASCULAR: Legs warm to touch. PSYCHOLOGIC: Alert. LABORATORY DATA: White count 10,400, hemoglobin 10, hematocrit 33.2, platelets 345,000. Blood sugar this morning 205. Sodium 133, K 4.4, chloride 91, bicarb 30, BUN 31, creatinine 1.4, calcium 9.3. Bilirubin 0.4, AST 27, ALT 25 and alk phos 90. Influenza A and B serologies were negative. EKG was reviewed. It showed a sinus rhythm with nonspecific ST-T wave changes. Chest x-ray was reviewed. There was no infiltrate, no effusion and no pneumothorax. IMPRESSION: A 63-year-old male with history of human immunodeficiency virus on HAART therapy with noncompliance with diet, medication and medical followup on multiple admissions in the past, now with exacerbation of chronic obstructive pulmonary disease, history of chronic hypertension, insulin-dependent diabetes mellitus, peripheral neuropathy, pancreatic insufficiency, peptic ulcer disease with gastroesophageal reflux disease, anxiety neurosis. PLAN: At present is to continue medications including Aldactone, Ecotrin, Brovana, Cozaar, Insulins, Neurontin, Norvasc, pancreas, Pepcid, Pulmicort, Robitussin DM, IV Rocephin, Singulair, tapering Solu-Medrol, Tylenol p.r.n., Xanax and HIV meds from home as labeled. Blood and urine cultures remain negative to date. He will be started on 0.9 saline, nasal O2 will continue. He will continue on diabetic diet and based on clinical progress, additional diagnostic workup will be entertained. All of the above was reviewed with the patient and nurse Mirza all questions were answered. Natalie Longoria MD MTDD
--- NOTE | 2018-04-26 14:13 | CP.PCM.PCO ---
Physician Communication Note - Physician Communication Note Physician Communication Note: Seen sitting up at bedside, chest congested,wheezing,cough, BP 86/55,on IVF
--- NOTE | 2018-04-26 23:05 | CON ---
DATE: 04/26/2018 ORTHOPEDIC REPORT LOCATION: Room 566, bed 1. HISTORY OF PRESENT ILLNESS: The patient is a 63-year-old male complaining of right knee pain after a fall about a week ago. He is known to have weakness of his lower extremities, he states from diabetic neuropathy, which has been progressively getting worse. Examination of the right knee discloses tendency of prepatellar bursa with no effusion. He has ability to do a straight leg raise i will start physical therapy. On strengthening exercise, it does not look like a fracture as he could do a straight leg raising. There is no effusion, but we will get an x-ray anyway to make sure there are no other underlying problems with the patella, FINAL DIAGNOSIS: Prepatellar traumatic bursitis. PLAN: To evaluate for fracture by getting an x-ray and attempted physical therapy to strengthen his weakened quadriceps from diabetic neuropathy. Linwood Lyn DO [facility]
[2018-04-27] MEDS: Sodium Chloride 0.9% 1,000 ML IV SCH ×2 (00:05→19:49)
[2018-04-27] MEDS: MethylPREDNISolone 40 mg Vial IVP SCH ×4 (05:43→22:34)
[2018-04-27] MEDS: Insulin Detemir 100 units/ml Vial (Levemir) SC SCH ×3 (08:10→22:22)
[2018-04-27] MEDS: Insulin Reg-HIGH-Coverage SC SCH ×5 (08:10→22:21)
[2018-04-27] MEDS: Budesonide 0.25 mg/2 ml Inhal Susp UD IH SCH ×2 (08:15→19:13)
[2018-04-27] MEDS: Albuterol-Ipratrop 3 mg / 0.5 (3 ml) UD IH SCH ×3 (08:15→19:13)
[2018-04-27] MEDS: Arformoterol 15 mcg/2 ml Inh Sol IH SCH ×2 (08:15→19:13)
[2018-04-27] MEDS: RALTEGRAVIR 600 MG PO SCH ×2 (10:14→17:42)
[2018-04-27] MEDS: cefTRIAXone 1 gm 1 GM/100 ML BAG IVPB SCH (10:15)
[2018-04-27] MEDS: Amylase/Lipase/Protease 5,000 Units ECC PO SCH ×3 (10:36→17:41)
--- NOTE | 2018-04-27 10:36 | PN ---
DATE: 04/27/2018 LOCATION: Room 566, bed 1. He is being treated for a traumatic bursitis over the right prepatellar bursa, but we are going to order an x-ray of the right patella and need to make sure there is no underlying bony injury, has not been done yet. So, we will continue physical therapy. As he can do a straight leg raise, so it is not urgent that we do surgery or anything, but if there is no fracture, I will treat him conservatively and he does not need to get x-ray. So we may have to change our course of treatment if there is a fracture, but we will not know until we get a x-ray. In the meantime we could ambulate with a walker, weightbearing to tolerance. Linwood Lyn DO
--- NOTE | 2018-04-27 11:13 | RAD ---
Date of service: 04/27/2018 PROCEDURE: Right Knee and patella radiographs. HISTORY: pain COMPARISON: None. FINDINGS: BONES: Normal. No fracture. JOINTS: Normal. No osteoarthritis. JOINT EFFUSION: None. OTHER FINDINGS: None. IMPRESSION: Normal radiographs of the right knee.
[2018-04-27] MEDS: guaiFENesin DM 200 mg-20 mg/10 ml UD PO PRN (12:22)
--- NOTE | 2018-04-27 14:58 | PN ---
DATE: 04/27/2018 SUBJECTIVE: This 63-year-old male was examined at his bedside on the morning of 04/27/2018. Present for this interview was nurse, June Blue, registered nurse. This case was also reviewed with Dr. Linwood Lyn from Orthopedics. The patient at present is complaining of severe right knee pain. He was seen in consultation by Dr. Linwood Lyn from Orthopedics who recommended a right knee x-ray with concern of traumatic bursitis after the patient explained that he had a fall where he fell on his right kneecap approximately 1 week ago. I did review his right knee and patellar x-rays which show a normal radiograph of the right knee with no evidence of fracture, no evidence of osteoarthritis and no joint effusion. However, the patient still complains of persistent pain. PHYSICAL EXAMINATION: VITAL SIGNS: Temperature is 98.3, respirations 19, pulse 71 and blood pressure 127/80 with a pulse ox of 98%, wearing 2 liters nasal O2. HEENT: Head: Normocephalic, atraumatic. Eyes: No icterus. Ears: Clear. Throat: Noninjected. NECK: Supple. HEART: S1, S2. LUNGS: Have rhonchi and wheezing bilaterally posteriorly which improved with coughing. ABDOMEN: Soft. EXTREMITIES: No edema. SKIN: Without rash. NEUROLOGIC: Deconditioned. VASCULAR: Legs warm to touch. PSYCHOLOGIC: Chronic anxiety. LABORATORY DATA: White count 10,400, hemoglobin 10, hematocrit 33.2, platelets 345,000. His random blood sugar was 286 and in the past 24 hours has ranged from 129 to a high of 344. Influenza A and B serologies are negative. IMPRESSION: A 63-year-old male with chronic human immunodeficiency virus on highly active antiretroviral therapy with comorbidities of hypertension, hepatitis C cirrhosis of the liver, insulin-dependent diabetes mellitus, diabetic peripheral neuropathy, pancreatic insufficiency, peptic ulcer disease with gastroesophageal reflux disease, degenerative arthritis and anxiety neurosis. PLAN: Continue gentle IV fluids of 0.9 saline at 40 mL/hour and the patient's Aldactone, Norvasc and Cozaar will be held for any systolic blood pressure less than 110. The patient will continue on Brovana and Pulmicort inhalational therapy as well as dual nebulizer therapy scheduled t.i.d. He continues on HIV medication from home as labeled, insulins, Neurontin, Pancrease, Pepcid, IV Rocephin, Robitussin, Singulair, tapering IV Solu-Medrol, Xanax and Tylenol. The patient is scheduled for physical therapy. He will be followed by Dr. Linwood Lyn from Orthopedics who may be considering a cortisone or Depo-Medrol injection into his right knee for pain relief. He continues on diabetic heart-healthy diet and a request for transitional care rehab has been placed. I did review blood and urine cultures which are negative to date and have spoken to the patient in great detail about all of the above. All questions were answered. Natalie Longoria MD MTD[facility]
[2018-04-28] MEDS: MethylPREDNISolone 40 mg Vial IVP SCH ×2 (05:52→14:20)
[2018-04-28] MEDS: Budesonide 0.25 mg/2 ml Inhal Susp UD IH SCH (07:36)
[2018-04-28] MEDS: Albuterol-Ipratrop 3 mg / 0.5 (3 ml) UD IH SCH ×2 (07:36→13:42)
[2018-04-28] MEDS: Arformoterol 15 mcg/2 ml Inh Sol IH SCH (07:36)
[2018-04-28 08:17] VITALS: RESP 20; O2SAT 99
[2018-04-28] MEDS: Insulin Reg-HIGH-Coverage SC SCH ×3 (08:17→17:33)
[2018-04-28] MEDS: Insulin Detemir 100 units/ml Vial (Levemir) SC SCH (08:22)
--- NOTE | 2018-04-28 09:46 | CP.PCM.PCO ---
Physician Communication Note - Physician Communication Note Physician Communication Note: Per Dr. Pennington, no indication for knee injection at this point.
[2018-04-28] MEDS: RALTEGRAVIR 600 MG PO SCH ×2 (10:17→17:34)
[2018-04-28] MEDS: Amylase/Lipase/Protease 5,000 Units ECC PO SCH ×3 (10:19→17:32)
[2018-04-28] MEDS: Sodium Chloride 0.9% 1,000 ML IV SCH (10:20)
[2018-04-28] MEDS: cefTRIAXone 1 gm 1 GM/100 ML BAG IVPB SCH ×2 (10:20→15:23)
[2018-04-28 14:26] VITALS: TEMP 98.3
[2018-04-28 14:30] VITALS: BP 139/79; PULSE 60
== END 2018-04-28 18:56 | DRG 191 ==
LOC: ED 19:52 → ERH 22:21 → 5RNO 04-24 01:00
PROVIDERS: ADMIT Internal Medicine; ATTEND Internal Medicine
PROC: 05H633Z Insertion of Infusion Device into Left Subclavian Vein, Percutaneous Approach (ICD-10-PCS; principal; 2018-04-28)
PROC: B54NZZA Ultrasonography of Left Upper Extremity Veins, Guidance (ICD-10-PCS; 2018-04-28)
PROC: 3E03329 Introduction of Other Anti-infective into Peripheral Vein, Percutaneous Approach (ICD-10-PCS; 2018-04-28)
DX: J44.1 Chronic obstructive pulmonary disease with (acute) exacerbation (principal); B20 Human immunodeficiency virus [HIV] disease; E10.65 Type 1 diabetes mellitus with hyperglycemia; I10 Essential (primary) hypertension; E10.40 Type 1 diabetes mellitus with diabetic neuropathy, unspecified; E10.42 Type 1 diabetes mellitus with diabetic polyneuropathy; M70.41 Prepatellar bursitis, right knee; B19.20 Unspecified viral hepatitis C without hepatic coma; K21.9 Gastro-esophageal reflux disease without esophagitis; D63.8 Anemia in other chronic diseases classified elsewhere; K74.60 Unspecified cirrhosis of liver; F41.1 Generalized anxiety disorder; K86.89 Other specified diseases of pancreas; Z91.11 Patient's noncompliance with dietary regimen; Z99.81 Dependence on supplemental oxygen; Z79.4 Long term (current) use of insulin; Z91.19 Patient's noncompliance with other medical treatment and regimen; Z79.82 Long term (current) use of aspirin; Z87.11 Personal history of peptic ulcer disease

== ENCOUNTER 2018-04-28 18:58 | Inpatient (IN) | payer OTHER, MEDICAID ==
[2018-04-28] MEDS ORDERED: guaiFENesin DM 200 mg-20 mg/10 ml UD PO PRN (20:22)
[2018-04-28] MEDS ORDERED: Dextrose 50% SYRINGE Inj (50 ml) IVP PRN (20:22)
[2018-04-28] MEDS ORDERED: Nitroglycerin 2% Ointment Foilpak UD TOP PRN ×2 (20:45→21:37)
[2018-04-28] MEDS ORDERED: Dextrose 50% SYRINGE Inj (50 ml) IV PRN (21:04)
[2018-04-28] MEDS: Sodium Chloride 0.9% 1,000 ML IV SCH (21:35)
[2018-04-28] MEDS ORDERED: Insulin Detemir 100 units/ml Vial (Levemir) SC SCH (22:00)
[2018-04-28] MEDS ORDERED: Influenza Vaccine 60 mcg/0.5 mL SYR (4YR UP) IM ONE (22:06)
[2018-04-28] MEDS ORDERED: Pneumococcal 23-Valent Vaccine IM ONE (22:06)
[2018-04-28 22:07] VITALS: RESP 18
[2018-04-28] MEDS: Insulin Reg-HIGH-Coverage SC SCH (22:32)
[2018-04-28] MEDS: MethylPREDNISolone 40 mg Vial IVP SCH (22:34)
[2018-04-29] MEDS: MethylPREDNISolone 40 mg Vial IVP SCH (05:15)
[2018-04-29] MEDS: Sodium Chloride 0.9% 1,000 ML IV SCH (05:24)
[2018-04-29] MEDS ORDERED: cefTRIAXone 1 gm 1 GM/100 ML BAG IVPB SCH (06:00)
[2018-04-29] MEDS ORDERED: cefTRIAXone 1 GM/100 ML BAG IVPB SCH (06:00)
[2018-04-29] MEDS: Insulin Reg-HIGH-Coverage SC SCH ×2 (07:16→12:42)
[2018-04-29] MEDS: Albuterol-Ipratrop 3 mg / 0.5 (3 ml) UD IH SCH ×2 (07:35→13:30)
[2018-04-29] MEDS ORDERED: Budesonide 0.25 mg/2 ml Inhal Susp UD IH SCH (08:00)
[2018-04-29] MEDS ORDERED: Arformoterol 15 mcg/2 ml Inh Sol IH SCH (08:00)
[2018-04-29] MEDS ORDERED: RALTEGRAVIR 600 MG PO SCH (10:00)
[2018-04-29] MEDS ORDERED: Amylase/Lipase/Protease 5,000 Units ECC PO SCH (10:00)
[2018-04-29 10:16] VITALS: TEMP 97.4; O2SAT 99
[2018-04-29 11:13] VITALS: BP 133/80; PULSE 88
[2018-04-29] MEDS ORDERED: Insulin Detemir 100 units/ml Vial (Levemir) SC SCH (16:30)
[2018-04-30] MEDS ORDERED: Cefpodoxime (Vantin) 200 mg Tab PO SCH (06:00)
--- NOTE | 2018-05-01 12:08 | HP ---
DATE OF EXAM: 04/29/2018 HISTORY OF PRESENT ILLNESS: This 63-year-old male was examined on the Transitional Care Unit at the [facility] on the morning of 04/29/2018. He was admitted for further treatment of exacerbation of chronic obstructive pulmonary disease and has comorbidities of human immunodeficiency viral syndrome, chronic hypertension, marked deconditioning, chronic hypertension, insulin-dependent diabetes mellitus, peripheral neuropathy, peptic ulcer disease with GERD and degenerative arthritis. At the time of my interview, despite being the first day of the patient is admitted, he threatened to sign AMA. This was reviewed with nurse, Rehana Lozada. The patient was advised that given his persistent cough, congestion and need for IV antibiotics and pulmonary toiletry with inhalational therapy, he should stay; however, he was adamant in his refusal to cooperate and left the [facility] on the morning of 04/29/2018 AMA. MEDICATIONS: Outpatient medications were reviewed and do include Norvasc, Diovan, Aldactone, Isentress, Singulair, Cozaar, Pancrease, insulins, Neurontin, Lasix, Pepcid and Ziagen. The patient was advised to follow up with his Infectious Disease specialist the name of which he could not recall but states he does see in [place], [place]. Overall, prognosis remains poor given his multiple episodes of AMA from the [facility] and multiple comorbidities and failure to comply with medication and treatment as recommended. Natalie Longoria MD
== END 2018-04-29 14:54 | disposition left against medical advice (07) | DRG 191 ==
LOC: TRCU 18:58
PROVIDERS: ADMIT Internal Medicine; ATTEND Internal Medicine
DX: J44.1 Chronic obstructive pulmonary disease with (acute) exacerbation (principal); B20 Human immunodeficiency virus [HIV] disease; I10 Essential (primary) hypertension; E11.51 Type 2 diabetes mellitus with diabetic peripheral angiopathy without gangrene; K21.9 Gastro-esophageal reflux disease without esophagitis; K27.9 Peptic ulcer, site unspecified, unspecified as acute or chronic, without hemorrhage or perforation; M19.90 Unspecified osteoarthritis, unspecified site; Z79.4 Long term (current) use of insulin

== ENCOUNTER 2018-05-11 20:05 | Inpatient (IN) | payer MEDICARE, MEDICAID ==
[2018-05-11 20:15] VITALS: BMI 26.6
[2018-05-11] MEDS: Albuterol-Ipratrop 3 mg / 0.5 (3 ml) UD IH SCH ×3 (20:17→20:47)
--- NOTE | 2018-05-11 20:19 | ED PDOC ---
Arrival/HPI - General Time Seen by Provider: 05/11/18 20:08 Historian: Patient - History of Present Illness Narrative History of Present Illness (Text): 05/11/18 20:18 63 yo M with pmhx of HIV with last CD4 of 87 on 02/13/2018 on HAART therapy, COPD on 2L home oxygen, HTN, DM, untreated hepatitis C, and chronic pancreatitis, presents to the ED for evaluation of persistent right hip and right knee pain since past week. Patient informs trip and fall getting out of a cab and sustaining injury to the right knee 1 week ago. Patient denies any head injury or loss of consciousness at the time. Patient reports visiting the ED following the incident and was discharged home after negative imaging findings. Patient denies any difficulty ambulating but states the pain has been persistent since discharge prompting him to present to the ED. Reportedly, patient had a negative X-ray of the right knee on 04/27/18. Patient additionally informs shortness of breath associated with congestion since 1 week but denies any sputum production. Patient denies any other associated somatic complaints. Patient denies any fevers, chills, headache, dizziness, chest pain, abdominal pain, nausea, vomiting, diarrhea, neck pain, or any other complaints. PMD: NONE Time/Duration: 1 week Symptom Onset: Gradual Symptom Course: Unchanged Activities at Onset: Light Context: Home Past Medical History - Provider Review Nursing Documentation Reviewed: Yes - Infectious Disease Hx of Infectious Diseases: None - Tetanus Immunization Tetanus Immunization: Unknown - Cardiac Hx Hypertension: Yes - Pulmonary Hx Chronic Obstructive Pulmonary Disease (COPD): Yes (on Home O2) - Neurological Hx Seizures: No - HEENT Hx HEENT Disorder: Yes Hx Cataracts: Yes (right eye sx) - Renal Hx Renal Disorder: No - Endocrine/Metabolic Hx Diabetes Mellitus Type 1: Yes - Hematological/Oncological Hx Cancer: No - Integumentary Hx Dermatological Disorder: No - Musculoskeletal/Rheumatological Hx Arthritis: Yes - Gastrointestinal Hx Gastrointestinal Disorders: Yes - Genitourinary/Gynecological Hx Genitourinary Disorders: No Hx Reproductive Disorders: No - Psychiatric Hx Anxiety: Yes Hx Substance Use: No - Surgical History Hx Mastectomy: No - Anesthesia Hx Anesthesia: Yes Hx Anesthesia Reactions: No Hx Malignant Hyperthermia: No - Suicidal Assessment Feels Threatened In Home Enviroment: No Family/Social History - Physician Review Nursing Documentation Reviewed: Yes Family/Social History: No Known Family HX Smoking Status: Former Smoker Hx Alcohol Use: No Hx Substance Use: No Substance used: h/o heroine use Allergies/Home Meds Allergies/Adverse Reactions: Allergies No Known Allergies Allergy (Verified 05/11/18 20:15) Home Medications: Home Meds Medication Instructions Recorded Confirmed Aspirin [Ecotrin] 81 mg PO DAILY 03/24/18 04/28/18 Review of Systems - Physician Review All systems were reviewed & negative as marked: Yes - Review of Systems Respiratory: SOB. absent: Sputum Cardiovascular: absent: Chest Pain Musculoskeletal: Arthralgias (right hip and right knee pain) Neurological: absent: Headache, Dizziness Physical Exam - Physical Exam Narrative Physical Exam (Text): 05/11/18 20:25 Constitutional: No acute distress. Head: Normocephalic. Atraumatic. Eyes: PERRL. ENT: Moist mucous membranes. Neck: Supple. Cardiovascular: Tachycardic. Chest: No tenderness. Respiratory: Clear to auscultation bilaterally. GI: Soft. Nontender. Nondistended. Back: No CVA tenderness. Musculoskeletal: No tenderness or swelling of extremities. Skin: No rash. Neurologic: Alert, no focal deficit. Vital Signs Reviewed: Yes Vital Signs Temp Pulse Resp BP Pulse Ox 05/11/18 20:15 99.2 F 121 H 18 93/61 L 96 Temperature: Afebrile Blood Pressure: Normal Pulse: Tachycardic Respiratory Rate: Normal Appearance: Positive for: Well-Appearing, Non-Toxic, Comfortable Pain Distress: None Mental Status: Positive for: Alert and Oriented X 3 Medical Decision Making ED Course and Treatment: 05/11/18 20:26 Impression: 63 year old male presents to the ED for evaluation right knee and right hip pain, and shortness of breath. Plan: -- Labs -- Chest X-ray -- Duoneb -- Solumedrol -- Tylenol -- X-ray of right hip -- Influenza A B -- Reassess and disposition Prior Visits: Notes and results from previous visits were reviewed. Progress Notes: 05/11/18 20:53 EKG: Ordered, reviewed, and independently interpreted the EKG. Rate : 101 BPM Rhythm : Sinus tachycardia Interpretation : Diffuse ST elevations consistent with early repolarization. 05/11/18 23:03 CXR no consolidation. Hip XR shows no fracture or dislocation. Patient continues to feel short of breath. Accepted to medical service by Dr. Burgos. - RAD Interpretation Radiology Orders: 05/11/18 20:15 CHEST PORTABLE [RAD] Stat HIP MIN 2V W/ PELVIS RT [RAD] Stat - EKG Interpretation Interpreted by ED Physician: Yes Type: 12 lead EKG - Medication Orders Current Medication Orders: Acetaminophen (Tylenol 325mg Tab) 650 mg PO STAT STA Stop: 05/11/18 20:18 Albuterol/Ipratropium (Duoneb 3 Mg/0.5 Mg (3 Ml) Ud) 3 ml IH Q15M AMAYA Stop: 05/11/18 20:46 Discontinued Medications Methylprednisolone (Solu-Medrol) 125 mg IVP STAT STA Stop: 05/11/18 20:16 - Scribe Statement The provider has reviewed the documentation as recorded by the Scribe Junie Hazel. All medical record entries made by the Scribe were at my direction and personally dictated by me. I have reviewed the chart and agree that the record accurately reflects my personal performance of the history, physical exam, medical decision making, and the department course for this patient. I have also personally directed, reviewed, and agree with the discharge instructions and disposition. Disposition/Present on Arrival - Present on Arrival Any Indicators Present on Arrival: Yes History of DVT/PE: No History of Uncontrolled Diabetes: Yes Urinary Catheter: No History Surgical Site Infection Following: None - Disposition Have Diagnosis and Disposition been Completed?: Yes Diagnosis: COPD exacerbation Disposition: HOSPITALIZED Disposition Time: 23:05 Patient Plan: Observation, Telemetry Condition: FAIR Referrals: PCP,NO [Primary Care Provider] - Follow up with primary
[2018-05-11 20:56] LABS: BASO # 0.02 K/mm3 (0.0-2.0); BASO % 0.2 % (0.0-3.0); EOS # 0.2 (0.0-0.7); EOS % 1.9 % (1.5-5.0); GRAN # 6.91 (1.4-6.5); GRAN % 78.2 % (50.0-68.0); HEMOGLOBIN 8.9 g/dL (14.0-18.0); LYMPH % 11.8 % (22.0-35.0); MEAN CELL VOLUME 83.8 fl (80.0-105.0); MEAN CORPUSCULAR HEMOGLOBIN 24.9 pg (25.0-35.0); MEAN CORPUSCULAR HGB CONC 29.8 g/dl (31.0-37.0); MEAN PLATELET VOLUME 9.1 fl (7.0-11.0); MONO # 0.7 (0.1-0.6); MONO % 7.9 % (1.0-6.0); RBC 3.57 10^6/uL (3.5-6.1); RED CELL DISTRIBUTION WIDTH 16.6 % (11.5-14.5); WHITE BLOOD COUNT 8.8 10^3/uL (4.5-11.0)
[2018-05-11 21:01] LABS: ALB/GLOB RATIO 0.9 (1.1-1.8); ALBUMIN 3.4 g/dL (3.0-4.8); ALT/SGPT 23 U/L (7-56); AST/SGOT 25 U/L (17-59); BLOOD UREA NITROGEN 11 mg/dL (7-21); CALCIUM 9.2 mg/dL (8.4-10.5); GFR NON-AFRICAN AMERICAN > 60
--- NOTE | 2018-05-11 23:06 | CP.PCM.HP ---
<Lawson Cunningham - Last Filed: 05/12/18 05:51> History of Present Illness - History of Present Illness History of Present Illness: PGY-1 H&P for Dr. Burgos CC: SOB HPI: Patient is a 63 year old male with past medical history of HIV on HAART, COPD on 2L home oxygen, HTN, DM, untreated hepatitis C, cataracts, and chronic pancreatitis, presenting with shortness of breath for the past 2 days. Patient has had multiple hospital visits and admissions for the same complaint. Patient states that he was resting at home and started feeling short of breath. Patient states that he is on 2L of home O2 at home and but was still feeling short of breath. Patient is also complaining of a productive cough that started last week. He describes his sputum to be clear and sometimes yellowish in color. He denies taking antibiotics or any other medications for his cough. Patient also admits to have fell last week while getting out of the taxi. He states that he fell on his right hip and admits to pain to the area. He describes the pain to be achy, 8/10, and localized to the right hip. The pain is worse when he is walking and he denies taking anything for the pain. Patient also complains seeing white substance under the foreskin of his penis and states it is malodorous. Patient states he is unsure how long he has had this symptom for. He denies dysuria, burning, hematuria, or penile discharge. Patient denies being sexually active. Patient also admits to chronic constipation and his last bowel movement was 2 days ago. Patient denies fevers, chills, chest pain, abdominal pain, nausea, vomiting, diarrhea, or urinary symptoms. 12 system ROS reviewed and negative except mentioned in HPI. Past medical history: HIV on HARRT (CD4: 213, Viral load undetected on 04/06/2018), COPD on 2L home oxygen, HTN, DM, untreated hepatitis C, cataracts, and chronic pancreatitis. Past surgical history: Right Cataract Surgery Family history: denies Social history: 1PPD for 51 years. Quit about 10 years ago. Used to drink EtOH but quit 40 years ago; could not quantify how much. Patient used to use drugs but quit 14 years ago. Lives in alone. Allergies: denies PMD: Dr. Lan Pharm: [facility] [place], [place] Pharmacy Present on Admission - Present on Admission Any Indicators Present on Admission: No History of DVT/PE: No History of Uncontrolled Diabetes: No Urinary Catheter: No Decubitus Ulcer Present: No Review of Systems - Review of Systems All systems: reviewed and no additional remarkable complaints except Past Patient History - Infectious Disease Hx of Infectious Diseases: None - Tetanus Immunizations Tetanus Immunization: Unknown - Past Medical History & Family History Past Medical History?: Yes - Past Social History Smoking Status: Former Smoker - CARDIAC Hx Hypertension: Yes - PULMONARY Hx Chronic Obstructive Pulmonary Disease (COPD): Yes (on Home O2) - NEUROLOGICAL Hx Seizures: No - HEENT Hx HEENT Problems: Yes Hx Cataracts: Yes (right eye sx) - RENAL Hx Chronic Kidney Disease: No - ENDOCRINE/METABOLIC Hx Diabetes Mellitus Type 1: Yes - HEMATOLOGICAL/ONCOLOGICAL Hx Cancer: No - INTEGUMENTARY Hx Dermatological Problems: No - MUSCULOSKELETAL/RHEUMATOLOGICAL Hx Arthritis: Yes - GASTROINTESTINAL Hx Gastrointestinal Disorders: Yes - GENITOURINARY/GYNECOLOGICAL Hx Genitourinary Disorders: No Hx Reproductive Disorders: No - PSYCHIATRIC Hx Anxiety: Yes Hx Substance Use: No - SURGICAL HISTORY Hx Mastectomy: No - ANESTHESIA Hx Anesthesia: Yes Hx Anesthesia Reactions: No Hx Malignant Hyperthermia: No Meds Allergies/Adverse Reactions: Allergies Allergy/AdvReac Type Severity Reaction Status Date / Time No Known Allergies Allergy Verified 05/11/18 20:15 Physical Exam - Constitutional Appears: Well, Non-toxic, No Acute Distress - Head Exam Head Exam: ATRAUMATIC, NORMAL INSPECTION - Eye Exam Eye Exam: EOMI, Normal appearance, PERRL - ENT Exam ENT Exam: Mucous Membranes Dry - Neck Exam Neck exam: Positive for: Normal Inspection - Respiratory Exam Respiratory Exam: Rhonchi, Wheezes (mild expiratory wheezes b/l). absent: Accessory Muscle Use, Rales, Respiratory Distress - Cardiovascular Exam Cardiovascular Exam: REGULAR RHYTHM, +S1, +S2. absent: Gallop, Rubs, Systolic Murmur - GI/Abdominal Exam GI & Abdominal Exam: Hypoactive Bowel Sounds, Soft. absent: Tenderness - Extremities Exam Extremities exam: Positive for: normal inspection. Negative for: calf tenderness, pedal edema - Back Exam Back exam: CVA tenderness (R), NORMAL INSPECTION. absent: paraspinal tenderness, vertebral tenderness Additional comments: Tender to palpation on right lower back - Neurological Exam Neurological exam: Alert, CN II-XII Intact, Oriented x3 Additional comments: Sensations intact in upper and lower extremities. Muscle strength 5/5 in upper and lower extremities. - Psychiatric Exam Psychiatric exam: Normal Affect, Normal Mood - Skin Skin Exam: Dry, Intact, Normal Color, Warm Results - Vital Signs Recent Vital Signs: Last Vital Signs Temp 99.2 F 05/11/18 20:15 Pulse 121 H 05/11/18 20:15 Resp 18 05/11/18 20:15 BP 93/61 L 05/11/18 20:15 Pulse Ox 96 05/11/18 20:15 - Labs Result Diagrams: 05/11/18 20:44 05/11/18 20:44 Labs: Laboratory Results - last 24 hr 05/11/18 05/11/18 05/11/18 20:44 20:44 20:44 WBC 8.8 RBC 3.57 Hgb 8.9 L Hct 29.9 L MCV 83.8 MCH 24.9 L MCHC 29.8 L RDW 16.6 H Plt Count 317 MPV 9.1 Gran % 78.2 H Lymph % (Auto) 11.8 L [place] % (Auto) 7.9 H Eos % (Auto) 1.9 Baso % (Auto) 0.2 Gran # 6.91 H Lymph # (Auto) 1.0 L [place] # (Auto) 0.7 H Eos # (Auto) 0.2 Baso # (Auto) 0.02 Sodium 136 Potassium 3.9 Chloride 97 L Carbon Dioxide 29 Anion Gap 13 BUN 11 Creatinine 1.0 Est GFR ( Amer) > 60 Est GFR (Non-Af Amer) > 60 Random Glucose 236 H Calcium 9.2 Total Bilirubin 0.4 AST 25 ALT 23 Alkaline Phosphatase 129 H D Total Protein 7.1 Albumin 3.4 Globulin 3.7 Albumin/Globulin Ratio 0.9 L Influenza Typ A,B (EIA) Negative for flu a/b Assessment & Plan - Assessment and Plan (Free Text) Assessment: Patient is a 63 year old male with past medical history of HIV on HAART, COPD on 2L home oxygen, HTN, DM, untreated hepatitis C, cataracts, and chronic pancreatitis, presenting with shortness of breath for the past 2 days. Plan: COPD exacerbation - Solumedrol 40mg IV Q8 - Xopenex Q6 AMAYA and Q4 PRN - Pulmicort 0.5mg INH BID - Azithromycin 500mg IV QD (started on 05/12) - CXR: pending - NS @ 75cc/hr Right hip pain s/p mechanical fall - Right hip xray: no fracture or dislocation - Ibuprofen 200mg PO Q6 PRN - Tylenol 650mg PO Q6 PRN Balanitis vs fungal infection - Ketoconazole cream BID to head of penis - Nystatin powder to groin creases - UA and Urine culture: pending HIV on HAART - Continue home medications: - Lamivudine 300mg PO QD - Isentress Hd 400mg PO QD - Abacavir 300mg PO BID DM-2 - ISS, medium - Levemir 10 units HS - Accuchecks ACHS - Hypoglycemia protocol HTN - Lisinopril 2.5mg PO QD Hx of chronic pancreatitis - Continue home medication - Creon 1 tab PO TID with meals Diabetic neuropathy - Gabapentin 300mg PO TID Constipation - Miralax BID - Senokot HS Hx of anxiety - Continue home medication - Xanax 0.25mg PO Q8 PRN Prophylaxis - DVT: Heparin 5000 SC Q8 - GI: Protonix 40mg PO QD Case discussed with Dr. Aubrey Cunningham, PGY-1 <Edwige Burgos - Last Filed: 05/12/18 19:27> Results - Vital Signs Recent Vital Signs: Last Vital Signs Temp 97.7 F 05/12/18 12:00 Pulse 83 05/12/18 12:00 Resp 18 05/12/18 12:00 BP 110/74 05/12/18 12:00 Pulse Ox 98 05/12/18 06:00 - Labs Result Diagrams: 05/11/18 20:44 05/11/18 20:44 Labs: Laboratory Results - last 24 hr 05/11/18 05/11/18 05/11/18 20:44 20:44 20:44 WBC 8.8 RBC 3.57 Hgb 8.9 L Hct 29.9 L MCV 83.8 MCH 24.9 L MCHC 29.8 L RDW 16.6 H Plt Count 317 MPV 9.1 Gran % 78.2 H Lymph % (Auto) 11.8 L [place] % (Auto) 7.9 H Eos % (Auto) 1.9 Baso % (Auto) 0.2 Gran # 6.91 H Lymph # (Auto) 1.0 L [place] # (Auto) 0.7 H Eos # (Auto) 0.2 Baso # (Auto) 0.02 pCO2 pO2 HCO3 ABG pH ABG Total CO2 ABG O2 Saturation ABG Base Excess ABG Potassium Glucose Lactate FiO2 Sodium 136 Potassium 3.9 Chloride 97 L Carbon Dioxide 29 Anion Gap 13 BUN 11 Creatinine 1.0 Est GFR ( Amer) > 60 Est GFR (Non-Af Amer) > 60 POC Glucose (mg/dL) Random Glucose 236 H Calcium 9.2 Phosphorus Total Bilirubin 0.4 AST 25 ALT 23 Alkaline Phosphatase 129 H D Total Protein 7.1 Albumin 3.4 Globulin 3.7 Albumin/Globulin Ratio 0.9 L Arterial Blood Potassium Urine Color Urine Appearance Urine pH Ur Specific [place] Urine Protein Urine Glucose (UA) Urine Ketones Urine Blood Urine Nitrate Urine Bilirubin Urine Urobilinogen Ur Leukocyte Esterase Urine Opiates Screen Urine Methadone Screen Ur Barbiturates Screen Ur Phencyclidine Scrn Ur Amphetamines Screen U Benzodiazepines Scrn U Oth Cocaine Metabols U Cannabinoids Screen Influenza Typ A,B (EIA) Negative for flu a/b 05/11/18 05/11/18 05/12/18 20:44 23:50 07:27 WBC RBC Hgb Hct MCV MCH MCHC RDW Plt Count MPV Gran % Lymph % (Auto) [place] % (Auto) Eos % (Auto) Baso % (Auto) Gran # Lymph # (Auto) [place] # (Auto) Eos # (Auto) Baso # (Auto) pCO2 43 pO2 74.0 L HCO3 28.5 H ABG pH 7.43 ABG Total CO2 29.8 H ABG O2 Saturation 98.1 H ABG Base Excess 3.7 H ABG Potassium 3.9 Glucose 342 H Lactate 1.1 FiO2 24.0 Sodium 134.0 Potassium Chloride 98.0 Carbon Dioxide Anion Gap BUN Creatinine Est GFR ( Amer) Est GFR (Non-Af Amer) POC Glucose (mg/dL) > 500 H* Random Glucose Calcium Phosphorus 3.3 Total Bilirubin AST ALT Alkaline Phosphatase Total Protein Albumin Globulin Albumin/Globulin Ratio Arterial Blood Potassium 3.9 Urine Color Urine Appearance Urine pH Ur Specific [place] Urine Protein Urine Glucose (UA) Urine Ketones Urine Blood Urine Nitrate Urine Bilirubin Urine Urobilinogen Ur Leukocyte Esterase Urine Opiates Screen Urine Methadone Screen Ur Barbiturates Screen Ur Phencyclidine Scrn Ur Amphetamines Screen U Benzodiazepines Scrn U Oth Cocaine Metabols U Cannabinoids Screen Influenza Typ A,B (EIA) 05/12/18 05/12/18 05/12/18 11:19 16:13 16:33 WBC RBC Hgb Hct MCV MCH MCHC RDW Plt Count MPV Gran % Lymph % (Auto) [place] % (Auto) Eos % (Auto) Baso % (Auto) Gran # Lymph # (Auto) [place] # (Auto) Eos # (Auto) Baso # (Auto) pCO2 pO2 HCO3 ABG pH ABG Total CO2 ABG O2 Saturation ABG Base Excess ABG Potassium Glucose Lactate FiO2 Sodium Potassium Chloride Carbon Dioxide Anion Gap BUN Creatinine Est GFR ( Amer) Est GFR (Non-Af Amer) POC Glucose (mg/dL) > 500 H* 329 H Random Glucose Calcium Phosphorus Total Bilirubin AST ALT Alkaline Phosphatase Total Protein Albumin Globulin Albumin/Globulin Ratio Arterial Blood Potassium Urine Color Urine Appearance Urine pH Ur Specific [place] Urine Protein Urine Glucose (UA) Urine Ketones Urine Blood Urine Nitrate Urine Bilirubin Urine Urobilinogen Ur Leukocyte Esterase Urine Opiates Screen Positive H Urine Methadone Screen Negative Ur Barbiturates Screen Negative Ur Phencyclidine Scrn Negative Ur Amphetamines Screen Negative U Benzodiazepines Scrn Negative U Oth Cocaine Metabols Negative U Cannabinoids Screen Negative Influenza Typ A,B (EIA) 05/12/18 16:33 WBC RBC Hgb Hct MCV MCH MCHC RDW Plt Count MPV Gran % Lymph % (Auto) [place] % (Auto) Eos % (Auto) Baso % (Auto) Gran # Lymph # (Auto) [place] # (Auto) Eos # (Auto) Baso # (Auto) pCO2 pO2 HCO3 ABG pH ABG Total CO2 ABG O2 Saturation ABG Base Excess ABG Potassium Glucose Lactate FiO2 Sodium Potassium Chloride Carbon Dioxide Anion Gap BUN Creatinine Est GFR ( Amer) Est GFR (Non-Af Amer) POC Glucose (mg/dL) Random Glucose Calcium Phosphorus Total Bilirubin AST ALT Alkaline Phosphatase Total Protein Albumin Globulin Albumin/Globulin Ratio Arterial Blood Potassium Urine Color Yellow Urine Appearance Clear Urine pH 7.5 Ur Specific [place] 1.010 Urine Protein Negative Urine Glucose (UA) >=1000 Urine Ketones Negative Urine Blood Negative Urine Nitrate Negative Urine Bilirubin Negative Urine Urobilinogen 0.2 Ur Leukocyte Esterase Negative Urine Opiates Screen Urine Methadone Screen Ur Barbiturates Screen Ur Phencyclidine Scrn Ur Amphetamines Screen U Benzodiazepines Scrn U Oth Cocaine Metabols U Cannabinoids Screen Influenza Typ A,B (EIA) Attending/Attestation - Attestation I have personally seen and examined this patient.: Yes I have fully participated in the care of the patient.: Yes I have reviewed all pertinent clinical information: Yes Notes (Text): 05/12/18 19:26 penile yeast infection 2/2 poor hygiene [facility]oconazole [facility]
[2018-05-11] MEDS ORDERED: Insulin Detemir 100 units/ml Vial (Levemir) SC SCH (23:45)
[2018-05-12] MEDS ORDERED: Dextrose 50% SYRINGE Inj (50 ml) IV PRN (00:04)
[2018-05-12] MEDS ORDERED: Levalbuterol 0.63 MG/3 ML Inhal Soln UD IH PRN (00:05)
[2018-05-12] MEDS ORDERED: Sodium Chloride 0.9% 1,000 ML IV SCH (00:15)
[2018-05-12] MEDS: Levalbuterol 0.63 MG/3 ML Inhal Soln UD IH SCH ×4 (01:00→20:01)
[2018-05-12 04:42] LABS: ARTERIAL BLOOD GAS HCO3 28.5 mmol/L (21-28); ARTERIAL BLOOD GAS O2 SAT 98.1 % (95-98); ARTERIAL BLOOD GAS PCO2 43 mm/Hg (35-45); ARTERIAL BLOOD GAS PH 7.43 (7.35-7.45); ARTERIAL BLOOD GAS TCO2 29.8 mmol.L (22-28)
[2018-05-12] MEDS: Nystatin 100,000 Units/gm Topical Pow(15 gm) TOP SCH ×3 (05:48→19:37)
[2018-05-12] MEDS: Azithromycin 500MG/NS 250ml 500 MG/250 ML BAG IVPB SCH (06:29)
[2018-05-12] MEDS: MethylPREDNISolone 40 mg Vial IV SCH ×3 (06:29→21:32)
[2018-05-12] MEDS: Budesonide 0.5 mg/2 ml Inhal Susp UD IH SCH ×2 (07:17→20:01)
--- NOTE | 2018-05-12 07:51 | RAD ---
Date of service: 05/11/2018 PROCEDURE: HISTORY: fall, hip pain COMPARISON: None TECHNIQUE: AP pelvis and frog's leg view. FINDINGS: No fracture dislocation. Inferior lumbar spondylosis degenerative disc disease, and transitional elements-developmental variation noted Bilateral hip mild osteoarthrosis IMPRESSION: No fracture or dislocation. Other findings as above.
--- NOTE | 2018-05-12 07:57 | RAD ---
Date of service: 05/11/2018 HISTORY: cough, dyspnea COMPARISON: 04/23/2018 chest x-ray FINDINGS: LUNGS: No consolidation appreciated. Probable scattered small pneumatocele is a and/or emphysematous of foci perceived right mid lung zone and right upper lung zone PLEURA: No significant pleural effusion identified, no pneumothorax apparent. CARDIOVASCULAR: There is presence of aortic atherosclerotic calcification on x-ray. Normal cardiac size. No pulmonary vascular congestion. OSSEOUS STRUCTURES: No significant abnormalities. VISUALIZED UPPER ABDOMEN: Normal. OTHER FINDINGS: None. IMPRESSION: No consolidative infiltrate. Possible small cystic airspaces/emphysematous change . Other findings as above.
[2018-05-12] MEDS ORDERED: Arformoterol 15 mcg/2 ml Inh Sol IH SCH (08:00)
[2018-05-12] MEDS: Amylase/Lipase/Protease 5,000 Units ECC PO SCH ×3 (08:17→17:53)
[2018-05-12] MEDS: Insulin Reg-MEDIUM-Coverage SC SCH ×4 (08:18→21:39)
[2018-05-12] MEDS ORDERED: RALTEGRAVIR POTASSIUM 600 MG PO SCH (10:00)
[2018-05-12] MEDS ORDERED: Amylase/Lipase/Protease 5,000 Units ECC PO SCH (10:00)
[2018-05-12] MEDS ORDERED: Azithromycin 500MG/NS 250ml 500 MG/250 ML BAG IVPB SCH (10:00)
[2018-05-12] MEDS: POLYETHYLENE GLYCOL 3350 17 GM/Dose PACKET PO SCH ×2 (10:26→17:55)
[2018-05-12] MEDS ORDERED: Insulin Detemir 100 units/ml Vial (Levemir) SC STA (11:31)
--- NOTE | 2018-05-12 11:31 | CP.PCM.PN ---
<Ubaldo Bowen - Last Filed: 05/12/18 11:57> Subjective - Date & Time of Evaluation Date of Evaluation: 05/12/18 Time of Evaluation: 06:00 - Subjective Subjective: Pt seen and examined this morning. Per nursing notes, pt is refusing blood draws. Pt reports pain in his right hip and right leg pain from a pervious fall. Reports wheezing. Objective - Vital Signs/Intake and Output Vital Signs (last 24 hours): Temp Pulse Resp BP Pulse Ox 98 F 86 19 118/68 98 05/12/18 06:00 05/12/18 10:52 05/12/18 06:00 05/12/18 10:52 05/12/18 06:00 - Medications Medications: Current Medications Abacavir Sulfate (Ziagen) 300 mg PO BID [facility]; Protocol Last Admin: 05/12/18 10:25 Dose: 300 mg Acetaminophen (Tylenol 325mg Tab) 650 mg PO Q6H PRN PRN Reason: Fever >100.4 F Alprazolam (Xanax) 0.25 mg PO Q8 PRN; Protocol PRN Reason: Anxiety Stop: 05/18/18 23:51 Amylase (Pancrease [id number] [id number] [id number] U) 1 unit PO AC [facility] Last Admin: 05/12/18 08:17 Dose: 1 unit Aspirin (Ecotrin) 81 mg PO DAILY [facility] Last Admin: 05/12/18 10:25 Dose: 81 mg Budesonide (Pulmicort Respules) 0.5 mg IH [id number] [facility] Last Admin: 05/12/18 07:17 Dose: 0.5 mg Dextrose (Dextrose 50% Inj) 0 ml IV STAT PRN; Protocol PRN Reason: Hypoglycemia Protocol Gabapentin (Neurontin) 300 mg PO TID [facility]; Protocol Last Admin: 05/12/18 10:26 Dose: 300 mg Guaifenesin/Dextromethorphan (Robitussin Dm) 5 ml PO Q4H PRN PRN Reason: Cough Heparin Sodium (Porcine) (Heparin) 5,000 units SC Q8 [facility] Last Admin: 05/12/18 06:28 Dose: 5,000 units Dextrose (Dextrose 5% In Water 1000 Ml) 1,000 mls @ 0 mls/hr IV .Q0M PRN; Protocol PRN Reason: Hypoglycemia Protocol Sodium Chloride (Sodium Chloride 0.9%) 1,000 mls @ 75 mls/hr IV .[id number] [facility] Last Admin: 05/12/18 02:00 Dose: 75 mls/hr Azithromycin (Zithromax 500mg In Ns) 500 mg in 250 mls @ 167 mls/hr IVPB 0600 [facility]; Protocol Last Admin: 05/12/18 06:29 Dose: 167 mls/hr Ibuprofen (Motrin Tab) 200 mg PO Q6H PRN PRN Reason: Pain, Mild (1-3) Insulin Detemir (Levemir) 10 unit SC BID [facility] Insulin Human Regular (Humulin R Med) 0 units SC ACHS [facility]; Protocol Last Admin: 05/12/18 08:18 Dose: 10 u Ketoconazole (Nizoral) 1 gm TOP BID [facility] Last Admin: 05/12/18 11:03 Dose: 1 gm Lamivudine (Epivir) 300 mg PO DAILY [facility] Last Admin: 05/12/18 10:25 Dose: 300 mg Levalbuterol HCl (Xopenex) 0.63 mg IH [id number] [facility] Last Admin: 05/12/18 07:17 Dose: 0.63 mg Levalbuterol HCl (Xopenex) 0.63 mg IH [id number] PRN PRN Reason: Shortness of Breath Methylprednisolone (Solu-Medrol) 40 mg IV Q8 [facility] Last Admin: 05/12/18 06:29 Dose: 40 mg Nystatin (Nystop Topical Powder) 1 gm TOP BID [facility] Last Admin: 05/12/18 10:51 Dose: 1 gm Pantoprazole Sodium (Protonix Ec Tab) 40 mg PO 0600 [facility] Polyethylene Glycol (Miralax) 17 gm PO BID [facility] Last Admin: 05/12/18 10:26 Dose: 17 gm Raltegravir (Isentress) 400 mg PO BID [facility]; Protocol Last Admin: 05/12/18 10:26 Dose: 400 mg Sennosides (Senokot Tab) 8.6 mg PO HS [facility] Last Admin: 05/12/18 05:49 Dose: Not Given - Labs Labs: 05/11/18 20:44 05/11/18 20:44 - Constitutional Appears: No Acute Distress - Head Exam Head Exam: ATRAUMATIC, NORMOCEPHALIC - Eye Exam Eye Exam: EOMI - ENT Exam ENT Exam: Mucous Membranes Moist - Neck Exam Neck Exam: Full ROM - Respiratory Exam Respiratory Exam: Rhonchi, Wheezes. absent: Accessory Muscle Use, Respiratory Distress Additional comments: pt receiving duoneb during exam - Cardiovascular Exam Cardiovascular Exam: RRR, +S1, +S2. absent: Diastolic murmur, Murmur - GI/Abdominal Exam GI & Abdominal Exam: Soft, Normal Bowel Sounds - Extremities Exam Extremities Exam: Full ROM. absent: Calf Tenderness, Pedal Edema - Neurological Exam Neurological Exam: Alert, Awake, Oriented x3 - Psychiatric Exam Psychiatric exam: Normal Affect, Normal Mood - Skin Skin Exam: Dry, Intact, Warm Assessment and Plan - Assessment and Plan (Free Text) Assessment: Pt is a 63 yo male with PMH of HIV on HAART, COPD 2L O2, HTN, DM, hepatitis C (untreated), chronic pancreatitis, and cataracts presenting with SOB for the past 2 days who is being treated for a COPD exacerbation. Plan: COPD exacerbation - Pulmicort 0.5mg - Xopenex Q6 AMAYA - Xopenex Q4 PRN - Azithromycin 500mg IV Q24 - methylprednisolone 40mg IV Q8 - NS@75 Balanitis - Ketoconazole cream BID - Nystatin powder - Urine culture: pending HIV - CD4 213, viral load undetectable - HAART - Abacavir 300mg PO BID - Lamivudine 300mg PO QD - Isentress Hd 400mg PO QD DM2 - ISS, medium - Levemir 15 BID - Accuchecks ACHS - Hypoglycemia protocol - Diabetic neuropathy, Gabapentin 300mg PO TID HTN - Lisinopril 2.5mg, hold at this time Right hip pain - s/p mechanical fall - Right hip xray: no fracture or dislocation Constipation - Miralax BID - Senokot HS Anxiety - Xanax 0.25mg PO Q8 PRN Chronic Pancreatitis - Creon Ppx - Heparin - Protonix Pt seen, examined, assessment an plan discussed with Dr Jennifer Bowen PGY1, Internal Medicine Resident <Dulce Rodriguez - Last Filed: 05/12/18 15:56> Objective - Vital Signs/Intake and Output Vital Signs (last 24 hours): Temp Pulse Resp BP Pulse Ox 97.7 F 83 18 110/74 98 05/12/18 12:00 05/12/18 12:00 05/12/18 12:00 05/12/18 12:00 05/12/18 06:00 Intake and Output: 05/12/18 05/12/18 06:59 18:59 Intake Total 1440 Balance 1440 - Medications Medications: Current Medications Abacavir Sulfate (Ziagen) 300 mg PO BID [facility]; Protocol Last Admin: 05/12/18 10:25 Dose: 300 mg Acetaminophen (Tylenol 325mg Tab) 650 mg PO Q6H PRN PRN Reason: Fever >100.4 F Alprazolam (Xanax) 0.25 mg PO Q8 PRN; Protocol PRN Reason: Anxiety Stop: 05/18/18 23:51 Amylase (Pancrease [id number] U-5000 U-[id number] U) 1 unit PO AC [facility] Last Admin: 05/12/18 12:23 Dose: 1 unit Aspirin (Ecotrin) 81 mg PO DAILY [facility] Last Admin: 05/12/18 10:25 Dose: 81 mg Budesonide (Pulmicort Respules) 0.5 mg IH [id number] [facility] Last Admin: 05/12/18 07:17 Dose: 0.5 mg Dextrose (Dextrose 50% Inj) 0 ml IV STAT PRN; Protocol PRN Reason: Hypoglycemia Protocol Gabapentin (Neurontin) 300 mg PO TID [facility]; Protocol Last Admin: 05/12/18 14:55 Dose: 300 mg Guaifenesin/Dextromethorphan (Robitussin Dm) 5 ml PO Q4H PRN PRN Reason: Cough Last Admin: 05/12/18 12:29 Dose: 5 ml Heparin Sodium (Porcine) (Heparin) 5,000 units SC Q8 [facility] Last Admin: 05/12/18 14:55 Dose: 5,000 units Dextrose (Dextrose 5% In Water 1000 Ml) 1,000 mls @ 0 mls/hr IV .Q0M PRN; Protocol PRN Reason: Hypoglycemia Protocol Azithromycin (Zithromax 500mg In Ns) 500 mg in 250 mls @ 167 mls/hr IVPB 0600 [facility]; Protocol Last Admin: 05/12/18 06:29 Dose: 167 mls/hr Ibuprofen (Motrin Tab) 200 mg PO Q6H PRN PRN Reason: Pain, Mild (1-3) Insulin Detemir (Levemir) 10 unit SC BID [facility] Insulin Human Regular (Humulin R Med) 0 units SC ACHS [facility]; Protocol Last Admin: 05/12/18 12:23 Dose: 10 u Ketoconazole (Nizoral) 1 gm TOP BID [facility] Last Admin: 05/12/18 11:03 Dose: 1 gm Lamivudine (Epivir) 300 mg PO DAILY [facility] Last Admin: 05/12/18 10:25 Dose: 300 mg Levalbuterol HCl (Xopenex) 0.63 mg IH [id number] [facility] Last Admin: 05/12/18 13:40 Dose: 0.63 mg Levalbuterol HCl (Xopenex) 0.63 mg IH [id number] PRN PRN Reason: Shortness of Breath Methylprednisolone (Solu-Medrol) 40 mg IV Q8 [facility] Last Admin: 05/12/18 14:55 Dose: 40 mg Nystatin (Nystop Topical Powder) 1 gm TOP BID [facility] Last Admin: 05/12/18 10:51 Dose: 1 gm Pantoprazole Sodium (Protonix Ec Tab) 40 mg PO 0600 [facility] Polyethylene Glycol (Miralax) 17 gm PO BID [facility] Last Admin: 05/12/18 10:26 Dose: 17 gm Raltegravir (Isentress) 400 mg PO BID [facility]; Protocol Last Admin: 05/12/18 10:26 Dose: 400 mg Sennosides (Senokot Tab) 8.6 mg PO HS [facility] Last Admin: 05/12/18 05:49 Dose: Not Given - Labs Labs: 05/11/18 20:44 05/11/18 20:44 Attending/Attestation - Attestation I have personally seen and examined this patient.: Yes I have fully participated in the care of the patient.: Yes I have reviewed all pertinent clinical information, including history, physical exam and plan: Yes Notes (Text): 05/12/18 15:51 Attending note; Patient seen and examined with resident. Patient is alert and awake. Complaining of significant cough and shortness of breath. Complaining of shortness of breath on exertion. Complaining of right hip and knee pain. Status post fall 1 week ago. Patient is a 63 year old male with PMH of HIV on HAART, COPD 2L O2, HTN, DM, hepatitis C (untreated), chronic drug abuse ,chronic pancreatitis, and cataracts presenting with SOB for the past 2 days . 1. Severe shortness of breath with accessory muscle use/tachycardia. Improving slowly. Started on Xopenex [id number], IV Solu-Medrol. Patient is home oxygen dependent. 2. History of HIV on HAART therapy; continue home meds. 3. Hypertension; blood pressure on the low side. Hold antihypertensives medication. 4. Diabetes; continue Levemir. Dosage increased. 5. Status post fall; right hip and knee pain. Pelvis x-ray showed right lumbar spondylosis with degenerative disc disease. right hip no fracture noted. Physical therapy evaluation requested. Case discussed with mental health case manager in detail. Monitor closely.
--- NOTE | 2018-05-12 12:02 | CARD ---
APPROVED REPORT Date of service: 05/11/2018 EKG Measurement Heart [id number] <Conclusion> Sinus tachycardia ST elevation, probably due to early repolarization Borderline ECG
[2018-05-12] MEDS: guaiFENesin DM 100 mg-10 mg/5 ml UD PO PRN ×2 (12:29→20:14)
[2018-05-12 16:48] LABS: PH,URINE 7.5 (4.7-8.0); URINE BILIRUBIN NEGATIVE (NEGATIVE); URINE BLOOD NEGATIVE (NEGATIVE); URINE GLUCOSE (UA) >=1000 mg/dL (NEGATIVE); URINE LEUKOCYTE ESTERASE NEGATIVE Leu/uL (NEGATIVE); URINE PROTEIN NEGATIVE mg/dL (<30 mg/dL); URINE UROBILINOGEN 0.2 E.U./dL (<1 E.U./dL)
[2018-05-12 17:04] LABS: BARBITURATES, UR NEGATIVE (NEGATIVE); BENZODIAZEPINES, UR NEGATIVE (NEGATIVE); OPIATES, UR POSITIVE (NEGATIVE); PHENCYCLIDINE, UR NEGATIVE (NEGATIVE)
[2018-05-12 17:07] LABS: URINE APPEARANCE CLEAR (CLEAR); URINE COLOR YELLOW (YELLOW)
[2018-05-12] MEDS: Insulin Detemir 100 units/ml Vial (Levemir) SC SCH (17:57)
[2018-05-13] MEDS: Levalbuterol 0.63 MG/3 ML Inhal Soln UD IH SCH ×3 (02:06→13:44)
--- NOTE | 2018-05-13 03:16 | CP.PCM.PN ---
Subjective - Date & Time of Evaluation Date of Evaluation: 05/13/18 Time of Evaluation: 03:16 - Subjective Subjective: # 22 angiocath was inserted in left distal forearm. Patient has no complaints now. Vitals are stable. Objective - Vital Signs/Intake and Output Vital Signs (last 24 hours): Temp Pulse Resp BP Pulse Ox 97.7 F 83 18 110/74 98 05/12/18 12:00 05/12/18 12:00 05/12/18 12:00 05/12/18 12:00 05/12/18 06:00 Intake and Output: 05/12/18 05/13/18 18:59 06:59 Intake Total 1440 Balance 1440 - Medications Medications: Current Medications Abacavir Sulfate (Ziagen) 300 mg PO BID [facility]; Protocol Last Admin: 05/12/18 17:55 Dose: 300 mg Acetaminophen (Tylenol 325mg Tab) 650 mg PO Q6H PRN PRN Reason: Fever >100.4 F Alprazolam (Xanax) 0.25 mg PO Q8 PRN; Protocol PRN Reason: Anxiety Stop: 05/18/18 23:51 Last Admin: 05/12/18 20:14 Dose: 0.25 mg Amylase (Pancrease 20138 U-5000 U-[id number] U) 1 unit PO AC [facility] Last Admin: 05/12/18 17:53 Dose: 1 unit Aspirin (Ecotrin) 81 mg PO DAILY [facility] Last Admin: 05/12/18 10:25 Dose: 81 mg Budesonide (Pulmicort Respules) 0.5 mg IH [id number] [facility] Last Admin: 05/12/18 20:01 Dose: 0.5 mg Dextrose (Dextrose 50% Inj) 0 ml IV STAT PRN; Protocol PRN Reason: Hypoglycemia Protocol Gabapentin (Neurontin) 300 mg PO TID [facility]; Protocol Last Admin: 05/12/18 17:55 Dose: 300 mg Guaifenesin/Dextromethorphan (Robitussin Dm) 5 ml PO Q4H PRN PRN Reason: Cough Last Admin: 05/12/18 20:14 Dose: 5 ml Heparin Sodium (Porcine) (Heparin) 5,000 units SC Q8 [facility] Last Admin: 05/12/18 21:38 Dose: Not Given Dextrose (Dextrose 5% In Water 1000 Ml) 1,000 mls @ 0 mls/hr IV .Q0M PRN; Protocol PRN Reason: Hypoglycemia Protocol Azithromycin (Zithromax 500mg In Ns) 500 mg in 250 mls @ 167 mls/hr IVPB 0600 [facility]; Protocol Last Admin: 05/12/18 06:29 Dose: 167 mls/hr Ibuprofen (Motrin Tab) 200 mg PO Q6H PRN PRN Reason: Pain, Mild (1-3) Insulin Detemir (Levemir) 10 unit SC BID [facility] Last Admin: 05/12/18 17:57 Dose: 10 units Insulin Human Regular (Humulin R Med) 0 units SC ACHS [facility]; Protocol Last Admin: 05/12/18 21:39 Dose: 2 units Ketoconazole (Nizoral) 1 gm TOP BID [facility] Last Admin: 05/12/18 19:37 Dose: Not Given Lamivudine (Epivir) 300 mg PO DAILY [facility] Last Admin: 05/12/18 10:25 Dose: 300 mg Levalbuterol HCl (Xopenex) 0.63 mg IH [id number] [facility] Last Admin: 05/13/18 02:06 Dose: Not Given Levalbuterol HCl (Xopenex) 0.63 mg IH [id number] PRN PRN Reason: Shortness of Breath Methylprednisolone (Solu-Medrol) 40 mg IV Q8 [facility] Last Admin: 05/12/18 21:32 Dose: 40 mg Nystatin (Nystop Topical Powder) 1 gm TOP BID [facility] Last Admin: 05/12/18 19:37 Dose: Not Given Pantoprazole Sodium (Protonix Ec Tab) 40 mg PO 0600 [facility] Polyethylene Glycol (Miralax) 17 gm PO BID [facility] Last Admin: 05/12/18 17:55 Dose: 17 gm Raltegravir (Isentress) 400 mg PO BID [facility]; Protocol Last Admin: 05/12/18 17:55 Dose: 400 mg Sennosides (Senokot Tab) 8.6 mg PO HS [facility] Last Admin: 05/12/18 21:32 Dose: 8.6 mg - Labs Labs: 05/11/18 20:44 05/11/18 20:44
[2018-05-13] MEDS: MethylPREDNISolone 40 mg Vial IV SCH (05:03)
[2018-05-13] MEDS: Azithromycin 500MG/NS 250ml 500 MG/250 ML BAG IVPB SCH (05:05)
[2018-05-13] MEDS ORDERED: Pantoprazole 40 mg EC Tab PO SCH (06:00)
[2018-05-13 06:34] LABS: GRAN # 9.19 (1.4-6.5); GRAN % 92.7 % (50.0-68.0); LYMPH # 0.6 (1.2-3.4); LYMPH % 5.6 % (22.0-35.0); MEAN CELL VOLUME 82.3 fl (80.0-105.0); MEAN CORPUSCULAR HEMOGLOBIN 24.8 pg (25.0-35.0); MEAN CORPUSCULAR HGB CONC 30.2 g/dl (31.0-37.0); MEAN PLATELET VOLUME 8.8 fl (7.0-11.0); MONO # 0.2 (0.1-0.6); MONO % 1.7 % (1.0-6.0); PLATELET COUNT 346 10^3/uL (120.0-450.0); RBC 3.22 10^6/uL (3.5-6.1); RED CELL DISTRIBUTION WIDTH 16.3 % (11.5-14.5); WHITE BLOOD COUNT 9.9 10^3/uL (4.5-11.0)
[2018-05-13 07:00] LABS: ALB/GLOB RATIO 0.9 (1.1-1.8); ALBUMIN 3.1 g/dL (3.0-4.8); ALT/SGPT 19 U/L (7-56); AST/SGOT 32 U/L (17-59); BLOOD UREA NITROGEN 20 mg/dL (7-21); CALCIUM 9.1 mg/dL (8.4-10.5); GFR NON-AFRICAN AMERICAN > 60
[2018-05-13 08:10] LABS: LYMPHOCYTE 5 % (22.0-35.0); MONOCYTE 1 % (1.0-6.0); NEUTROPHIL 94 % (50.0-70.0)
[2018-05-13 08:11] LABS: LARGE PLATELETS PRESENT; PLATELET ESTIMATE NORMAL (NORMAL)
[2018-05-13 08:20] VITALS: TEMP 98.2
[2018-05-13] MEDS: Budesonide 0.5 mg/2 ml Inhal Susp UD IH SCH (08:21)
[2018-05-13] MEDS: Insulin Reg-MEDIUM-Coverage SC SCH ×2 (08:55→11:23)
[2018-05-13] MEDS: Insulin Detemir 100 units/ml Vial (Levemir) SC SCH (09:29)
[2018-05-13] MEDS: POLYETHYLENE GLYCOL 3350 17 GM/Dose PACKET PO SCH ×2 (09:30→09:37)
[2018-05-13] MEDS: Amylase/Lipase/Protease 5,000 Units ECC PO SCH ×2 (09:31→14:12)
[2018-05-13] MEDS ORDERED: MethylPREDNISolone 40 mg Vial IV SCH (10:00)
--- NOTE | 2018-05-13 12:41 | CP.PCM.APN ---
Subjective - Date & Time of Evaluation Date of Evaluation: 05/13/18 Time of Evaluation: 11:50 - Subjective Subjective: Patient seen and examined , sitting up in chair, denied chest pain, wheezes heard, states just walked with PT, requesting to walk more. Review of Systems - Constitutional Constitutional: As Per HPI - EENT Eyes: absent: As Per HPI, Blind Spots, Blurred Vision, Change in Vision, Decreased Night Vision, Diplopia, Discharge, Dry Eye, Exophthalmos, Floaters, Irritation, Itchy Eyes, Loss of Peripheral Vision, Pain, Photophobia, Requires Corrective Lenses, Sees Flashes, Spots in Vision, Tunnel Vision, Other Visual Disturbances, Loss of Vision, Other Ears: absent: As Per HPI, Decreased Hearing, Ear Discharge, Ear Pain, Tinnitus, Abnormal Hearing, Disequilibrium, Dizziness, Other Nose/Mouth/Throat: absent: As Per HPI, Epistaxis, Nasal Congestion, Nasal Discharge, Nasal Obstruction, Nasal Trauma, Nose Pain, Post Nasal Drip, Sinus Pain, Sinus Pressure, Bleeding Gums, Change in Voice, Dental Pain, Dry Mouth, Dysphagia, Halitosis, Hoarsness, Lip Swelling, Mouth Lesions, Mouth Pain, Odynophagia, Sore Throat, Throat Swelling, Tongue Swelling, Facial Pain, Neck Pain, Neck Mass, Other - Cardiovascular Cardiovascular: absent: As Per HPI, Acrocyanosis, Chest Pain, Chest Pain at Rest, Chest Pain with Activity, Claudication, Diaphoresis, Dyspnea, Dyspnea on Exertion, Edema, Irregular Heart Rhythm, Pain Radiating to Arm/Neck/Jaw, Leg Edema, Leg Ulcers, Lightheadedness, Orthopnea, Palpitations, Paroxysmal Nocturnal Dyspnea, Pedal Edema, Radiating Pain, Rapid Heart Rate, Slow Heart Rate, Syncope, Other - Respiratory Respiratory: Wheezing - Gastrointestinal Gastrointestinal: absent: As Per HPI, Abdominal Pain, Belching, Bloating, Change in Bowel Habits, Change in Stool Character, Coffee Ground Emesis, Constipation, Cramping, Diarrhea, Dyspepsia, Dysphagia, Early Satiety, Excessive Flatus, Fecal Incontinence, Heartburn, Hematemesis, Hematochezia, Loose Stools, Melena, Nausea, Odynophagia, Temesmus, Vomiting, Other - Genitourinary Genitourinary: absent: As Per HPI, Change in Urinary Stream, Difficulty Urinating, Dysuria, Flank Pain, Hematuria, Pyuria, Nocturia, Urinary Incontinence, Urinary Frequency, Urinary Hesitance, Urinary Urgency, Voiding Freq/Small Amts, Freq UTI, Hx Renal/Bladder Calculi, Hx /Renal Surgery, Bladder Distension, Other - Reproductive: Male Reproductive:Male: As Per HPI, Prepubesant, Dyspareunia, Genital Lesions, Genital Pruritis, Pelvic Pain, Sexual Dysfunction, Penile Discharge, Genital Odor, Impotence, On ED Medications, Penile Implant, Other - Musculoskeletal Musculoskeletal: absent: As Per HPI, Abnormal Gait, Arthralgias, Atrophy, Back Pain, Deformity, Joint Swelling, Limited Range of Motion, Loss of Height, Muscle Cramps, Muscle Weakness, Myalgias, Neck Pain, Numbness, Radiating Pain into Limb, Stiffness, Tingling, Other - Integumentary Integumentary: absent: As Per HPI, Acne, Alopecia, Bleeding Lesions, Change in Hair, Change in Nails, Change in Pigmentation, Changing Lesions, Dry Skin, Erythema, Furuncle, Hirsutism, Lesions, New Lesions, Non-Healing Lesions, Photosensitivity, Pruritus, Rash, Skin Pain, Skin Ulcer, Sores, Striae, Swelling, Unusual Bruising, Wounds, Jaundice, Other - Neurological Neurological: absent: As Per HPI, Abnormal Gait, Abnormal Hearing, Abnormal Movements, Abnormal Speech, Behavioral Changes, Burning Sensations, Confusion, Convulsions, Disequilibrium, Dizziness, Numbness, Focal Weakness, Frequent Falls, Headaches, Lack of Coordination, Loss of Vision, Memory Loss, Paresthesias, Radicular Pain, Restless Legs, Sensory Deficit, Syncope, Tingling, Tremor, Vertigo, Weakness, Other Visual Disturbances, Other - Psychiatric Psychiatric: absent: As Per HPI, Abnormal Sleep Pattern, Anhedonia, Anxiety, Auditory Hallucinations, Behavioral Changes, Change in Appetite, Change in Libido, Confusion, Depression, Difficulty Concentrating, Hallucinations, Homicidal Ideation, Hopelessness, Irritability, Memory Loss, Mood Swings, Panic Attacks, Paranoia, Suicidal Ideation, Visual Hallucinations, Tactile Hallucinations, Other - Endocrine Endocrine: absent: As Per HPI, Change in Body Appearance, Change in Libido, Cold Intolorance, Deepening of Voice, Excessive Sweating, Fatigue, Flushing, Heat Intolorance, Increase in Ring/Shoe/Hat Size, Palpitations, Polydipsia, Polyphagia, Polyuria, Other - Hematologic/Lymphatic Hematologic: absent: As Per HPI, Easy Bleeding, Easy Bruising, Lymphadenopathy, Other Objective - Vital Signs/Intake and Output Vital Signs (last 24 hours): Temp Pulse Resp BP Pulse Ox 98.2 F 62 20 108/70 95 05/13/18 08:20 05/13/18 08:20 05/13/18 08:20 05/13/18 08:20 05/13/18 10:51 Intake and Output: 05/13/18 05/13/18 06:59 18:59 Intake Total 240 Output Total 1150 Balance -910 - Medications Medications: Current Medications Abacavir Sulfate (Ziagen) 300 mg PO BID [facility]; Protocol Last Admin: 05/13/18 09:25 Dose: 300 mg Acetaminophen (Tylenol 325mg Tab) 650 mg PO Q6H PRN PRN Reason: Fever >100.4 F Alprazolam (Xanax) 0.25 mg PO Q8 PRN; Protocol PRN Reason: Anxiety Stop: 05/18/18 23:51 Last Admin: 05/13/18 09:35 Dose: 0.25 mg Amylase (Pancrease [id number] U-5000 U-[id number] U) 1 unit PO AC [facility] Last Admin: 05/13/18 09:31 Dose: 1 unit Aspirin (Ecotrin) 81 mg PO DAILY [facility] Last Admin: 05/13/18 09:25 Dose: 81 mg Budesonide (Pulmicort Respules) 0.5 mg IH [id number] [facility] Last Admin: 05/13/18 08:21 Dose: 0.5 mg Dextrose (Dextrose 50% Inj) 0 ml IV STAT PRN; Protocol PRN Reason: Hypoglycemia Protocol Gabapentin (Neurontin) 300 mg PO TID [facility]; Protocol Last Admin: 05/13/18 09:30 Dose: 300 mg Guaifenesin/Dextromethorphan (Robitussin Dm) 5 ml PO Q4H PRN PRN Reason: Cough Last Admin: 05/12/18 20:14 Dose: 5 ml Heparin Sodium (Porcine) (Heparin) 5,000 units SC Q8 [facility] Last Admin: 05/13/18 05:06 Dose: Not Given Dextrose (Dextrose 5% In Water 1000 Ml) 1,000 mls @ 0 mls/hr IV .Q0M PRN; Protocol PRN Reason: Hypoglycemia Protocol Ibuprofen (Motrin Tab) 200 mg PO Q6H PRN PRN Reason: Pain, Mild (1-3) Insulin Detemir (Levemir) 10 unit SC BID [facility] Last Admin: 05/13/18 09:29 Dose: 10 units Insulin Human Regular (Humulin R Med) 0 units SC ACHS [facility]; Protocol Last Admin: 05/13/18 11:23 Dose: 7 units Ketoconazole (Nizoral) 1 gm TOP BID [facility] Last Admin: 05/12/18 19:37 Dose: Not Given Lamivudine (Epivir) 300 mg PO DAILY [facility] Last Admin: 05/13/18 09:28 Dose: 300 mg Levalbuterol HCl (Xopenex) 0.63 mg IH [id number] [facility] Last Admin: 05/13/18 08:21 Dose: 0.63 mg Levalbuterol HCl (Xopenex) 0.63 mg IH [id number] PRN PRN Reason: Shortness of Breath Methylprednisolone (Solu-Medrol) 40 mg IV Q12 [facility] Nystatin (Nystop Topical Powder) 1 gm TOP BID [facility] Last Admin: 05/12/18 19:37 Dose: Not Given Pantoprazole Sodium (Protonix Ec Tab) 40 mg PO 0600 [facility] Last Admin: 05/13/18 05:04 Dose: 40 mg Polyethylene Glycol (Miralax) 17 gm PO BID [facility] Last Admin: 05/13/18 09:37 Dose: Not Given Raltegravir (Isentress) 400 mg PO BID [facility]; Protocol Last Admin: 05/13/18 09:29 Dose: 400 mg Sennosides (Senokot Tab) 8.6 mg PO HS [facility] Last Admin: 05/12/18 21:32 Dose: 8.6 mg - Labs Labs: 05/13/18 06:05 05/13/18 06:05 - Constitutional Appears: No Acute Distress - Head Exam Head Exam: NORMAL INSPECTION, NORMOCEPHALIC - Eye Exam Eye Exam: absent: Conjunctival injection, EOMI, Normal appearance, Nystagmus, Periorbital swelling, Periorbital tenderness, PERRL, Scleral icterus - ENT Exam ENT Exam: Mucous Membranes Moist, Normal Exam - Neck Exam Neck Exam: Full ROM, Normal Inspection - Respiratory Exam Respiratory Exam: Wheezes - Cardiovascular Exam Cardiovascular Exam: REGULAR RHYTHM, +S1, +S2 - GI/Abdominal Exam GI & Abdominal Exam: Soft, Normal Bowel Sounds - Rectal Exam Rectal Exam: Deferred - Exam Exam: absent: Circumcision, NORMAL INSPECTION, Scrotal Swelling, Testicular Tenderness, Uretheral Discharge, Testicular Vertical Lie, Bladder Distension Speculum exam: absent: Cervical Discharge, Erythema, Foreign Body, Laceration, NORMAL SPECULUM EXAM, Tissue, Vaginal Bleeding, Vaginal Discharge Bimanual exam: absent: Adenexal Mass, Adnexal, Cervical Motion Tendernes, NORMAL BIMANUAL EXAM, Uterine Enlargement, Uterine Tenderness - Extremities Exam Extremities Exam: Full ROM, Normal Inspection - Back Exam Back Exam: Full ROM, NORMAL INSPECTION - Neurological Exam Neurological Exam: Alert, Awake, Oriented x3 - Psychiatric Exam Psychiatric exam: Normal Affect, Normal Mood - Skin Skin Exam: Dry, Intact, Normal Color, Warm
[2018-05-13] MEDS: Nystatin 100,000 Units/gm Topical Pow(15 gm) TOP SCH (14:10)
[2018-05-13 16:58] VITALS: BP 100/61; PULSE 80; RESP 19; O2SAT 99
--- NOTE | 2018-05-13 17:35 | CP.PCM.DIS ---
<AndrésUbaldo Scotty - Last Filed: 05/13/18 17:43> Provider - Provider Date of Admission: 05/12/18 13:36 Attending physician: Dulce Rodriguez MD Primary care physician: NO PRIMARY CARE PROVIDER Time Spent in preparation of Discharge (in minutes): 40 Diagnosis - Discharge Diagnosis (1) COPD exacerbation Status: Acute Priority: High (2) HIV (human immunodeficiency virus infection) Status: Chronic Priority: High (3) Balanitis Status: Acute Priority: Medium (4) Diabetes Status: Chronic Priority: High (5) HTN (hypertension) Status: Chronic Priority: High Hospital Course - Lab Results Lab Results: Most Recent Lab Values WBC 9.9 10^3/uL (4.5-11.0) 05/13/18 06:05 RBC 3.22 10^6/uL (3.5-6.1) L 05/13/18 06:05 Hgb 8.0 g/dL (14.0-18.0) L 05/13/18 06:05 Hct 26.5 % (42.0-52.0) L 05/13/18 06:05 MCV 82.3 fl (80.0-105.0) 05/13/18 06:05 MCH 24.8 pg (25.0-35.0) L 05/13/18 06:05 MCHC 30.2 g/dl (31.0-37.0) L 05/13/18 06:05 RDW 16.3 % (11.5-14.5) H 05/13/18 06:05 Plt Count 346 10^3/uL (120.0-450.0) 05/13/18 06:05 MPV 8.8 fl (7.0-11.0) 05/13/18 06:05 Gran % 92.7 % (50.0-68.0) H 05/13/18 06:05 Lymph % (Auto) 5.6 % (22.0-35.0) L 05/13/18 06:05 Creek % (Auto) 1.7 % (1.0-6.0) 05/13/18 06:05 Eos % (Auto) 0.0 % (1.5-5.0) L 05/13/18 06:05 Baso % (Auto) 0.0 % (0.0-3.0) 05/13/18 06:05 Gran # 9.19 (1.4-6.5) H 05/13/18 06:05 Lymph # (Auto) 0.6 (1.2-3.4) L 05/13/18 06:05 Creek # (Auto) 0.2 (0.1-0.6) 05/13/18 06:05 Eos # (Auto) 0.0 (0.0-0.7) 05/13/18 06:05 Baso # (Auto) 0.00 K/mm3 (0.0-2.0) 05/13/18 06:05 Neutrophils % (Manual) 94 % (50.0-70.0) H 05/13/18 06:05 Lymphocytes % (Manual) 5 % (22.0-35.0) L 05/13/18 06:05 Monocytes % (Manual) 1 % (1.0-6.0) 05/13/18 06:05 Platelet Evaluation Normal (NORMAL) 05/13/18 06:05 Large Platelets Present 05/13/18 06:05 pCO2 43 mm/Hg (35-45) 05/11/18 23:50 pO2 74.0 mm/Hg (80-100) L 05/11/18 23:50 HCO3 28.5 mmol/L (21-28) H 05/11/18 23:50 ABG pH 7.43 (7.35-7.45) 05/11/18 23:50 ABG Total CO2 29.8 mmol.L (22-28) H 05/11/18 23:50 ABG O2 Saturation 98.1 % (95-98) H 05/11/18 23:50 ABG Base Excess 3.7 mmol/L (-2.0-3.0) H 05/11/18 23:50 ABG Potassium 3.9 mmol/L (3.6-5.2) 05/11/18 23:50 Sodium 134.0 mmol/L (132-148) 05/11/18 23:50 Chloride 98.0 mmol/L (98-107) 05/11/18 23:50 Glucose 342 mg/dl (75-110) H 05/11/18 23:50 Lactate 1.1 mmol/L (0.7-2.1) 05/11/18 23:50 FiO2 24.0 % 05/11/18 23:50 Sodium 139 mmol/L (132-148) 05/13/18 06:05 Potassium 4.0 mmol/L (3.6-5.0) 05/13/18 06:05 Chloride 104 mmol/L (98-107) 05/13/18 06:05 Carbon Dioxide 31 mmol/L (21-33) 05/13/18 06:05 Anion Gap 9 (10-20) L 05/13/18 06:05 BUN 20 mg/dL (7-21) 05/13/18 06:05 Creatinine 0.9 mg/dl (0.8-1.5) 05/13/18 06:05 Est GFR ( Amer) > 60 05/13/18 06:05 Est GFR (Non-Af Amer) > 60 05/13/18 06:05 POC Glucose (mg/dL) 160 mg/dL (65-110) H 05/13/18 16:22 Random Glucose 228 mg/dL (70-110) H 05/13/18 06:05 Calcium 9.1 mg/dL (8.4-10.5) 05/13/18 06:05 Phosphorus 2.9 mg/dL (2.5-4.5) 05/13/18 06:05 Magnesium 2.2 mg/dL (1.7-2.2) 05/13/18 06:05 Total Bilirubin 0.1 mg/dL (0.2-1.3) L 05/13/18 06:05 AST 32 U/L (17-59) 05/13/18 06:05 ALT 19 U/L (7-56) 05/13/18 06:05 Alkaline Phosphatase 101 U/L (38-126) 05/13/18 06:05 Total Protein 6.5 g/dL (5.8-8.3) 05/13/18 06:05 Albumin 3.1 g/dL (3.0-4.8) 05/13/18 06:05 Globulin 3.4 gm/dL 05/13/18 06:05 Albumin/Globulin Ratio 0.9 (1.1-1.8) L 05/13/18 06:05 Arterial Blood Potassium 3.9 mmol/L (3.6-5.2) 05/11/18 23:50 Urine Color Yellow (YELLOW) 05/12/18 16:33 Urine Appearance Clear (CLEAR) 05/12/18 16:33 Urine pH 7.5 (4.7-8.0) 05/12/18 16:33 Ur Specific [place] 1.010 (1.005-1.035) 05/12/18 16:33 Urine Protein Negative mg/dL (<30 mg/dL) 05/12/18 16:33 Urine Glucose (UA) >=1000 mg/dL (NEGATIVE) 05/12/18 16:33 Urine Ketones Negative mg/dL (NEGATIVE) 05/12/18 16:33 Urine Blood Negative (NEGATIVE) 05/12/18 16:33 Urine Nitrate Negative (NEGATIVE) 05/12/18 16:33 Urine Bilirubin Negative (NEGATIVE) 05/12/18 16:33 Urine Urobilinogen 0.2 E.U./dL (<1 E.U./dL) 05/12/18 16:33 Ur Leukocyte Esterase Negative Nash/uL (NEGATIVE) 05/12/18 16:33 Urine Opiates Screen Positive (NEGATIVE) H 05/12/18 16:33 Urine Methadone Screen Negative (NEGATIVE) 05/12/18 16:33 Ur Barbiturates Screen Negative (NEGATIVE) 05/12/18 16:33 Ur Phencyclidine Scrn Negative (NEGATIVE) 05/12/18 16:33 Ur Amphetamines Screen Negative (NEGATIVE) 05/12/18 16:33 U Benzodiazepines Scrn Negative (NEGATIVE) 05/12/18 16:33 U Oth Cocaine Metabols Negative (NEGATIVE) 05/12/18 16:33 U Cannabinoids Screen Negative (NEGATIVE) 05/12/18 16:33 Influenza Typ A,B (EIA) Negative for flu a/b (NEGATIVE) 05/11/18 20:44 - Hospital Course Hospital Course: Upon arrival Pt is a 63 yo male with PMH of HIV on HAART, COPD on 2L home oxygen, HTN, DM, untreated hepatitis C, cataracts, and chronic pancreatitis, presenting with shortness of breath for the past 2 days. Patient has had multiple hospital visits and admissions for the same complaint. Patient states that he was resting at home and started feeling short of breath. Patient states that he is on 2L of home O2 at home and but was still feeling short of breath. Patient is also complaining of a productive cough that started last week. He describes his sputum to be clear and sometimes yellowish in color. Hospitalization Pt was treated for COPD exacerbation with solumedrol and xopenex. Pt right hip pain was evaluated with xray and determined that there was no fracture or dislocation. Discharge Pt advised to please follow up with primary care physician within 3-5 days.Please follow up with infectious disease physician within the next 1 week. Pt given albuterol inhalers and duonebs with a prescription for a nebulizer machine. - Date & Time of H&P Date of H&P: 05/13/18 Time of H&P: 17:36 Discharge Exam - Head Exam Head Exam: NORMAL INSPECTION, NORMOCEPHALIC - Eye Exam Eye Exam: EOMI - ENT Exam ENT Exam: Mucous Membranes Moist - Respiratory Exam Respiratory Exam: NORMAL BREATHING PATTERN. absent: Accessory Muscle Use, Respiratory Distress - Cardiovascular Exam Cardiovascular Exam: RRR, +S1, +S2. absent: Diastolic murmur, Systolic Murmur - GI/Abdominal Exam GI & Abdominal Exam: Normal Bowel Sounds, Unremarkable - Extremities Exam Extremities exam: full ROM - Neurological Exam Neurological exam: Alert, Oriented x3 - Psychiatric Exam Psychiatric exam: Normal Affect, Normal Mood - Skin Skin Exam: Dry, Normal Color, Warm Discharge Plan - Discharge Medications Prescriptions: Albuterol HFA [Ventolin HFA 90 mcg/actuation (8 g)] 2 puff IH Q6 PRN #1 inhaler PRN Reason: Wheezing Albuterol/Ipratropium [Duoneb 3 mg/0.5 mg (3 ml) UD] 3 ml IH TIDRESP #30 neb Arformoterol [Brovana] 15 mcg IH [id number] #1 neb guaiFENesin/Dextromethorphan [Robitussin DM] 5 ml PO Q4H PRN #1 bottle PRN Reason: Cough Ketoconazole 2% Cr [Nizoral] 1 gm TOP BID #1 tube Montelukast [Singulair] 10 mg PO HS #1 tab Nystatin [Nystop Topical Powder] 1 gm TOP BID #1 bottle - Follow Up Plan Condition: FAIR Disposition: HOME/ ROUTINE Instructions: Exacerbation of COPD (DC) Additional Instructions: 1. please follow up with your primary care physician within 3-5 days 2. please follow up with your infectious disease physician within the next 1 week 3. please continue to take your medications are prescribed, inhalers for your shortness of breath will be delivered to your room before you leave 4. please use the antifungal medications as directed 4. if your symptoms return or worsen, please go to the nearest emergency department Referrals: PCP,NO [Primary Care Provider] - <Dulce Rodriguez - Last Filed: 05/14/18 07:40> Provider - Provider Date of Admission: 05/12/18 13:36 Attending physician: Dulce Rodriguez MD Primary care physician: HARLEEN PRIMARY CARE PROVIDER Hospital Course - Lab Results Lab Results: Most Recent Lab Values WBC 9.9 10^3/uL (4.5-11.0) 05/13/18 06:05 RBC 3.22 10^6/uL (3.5-6.1) L 05/13/18 06:05 Hgb 8.0 g/dL (14.0-18.0) L 05/13/18 06:05 Hct 26.5 % (42.0-52.0) L 05/13/18 06:05 MCV 82.3 fl (80.0-105.0) 05/13/18 06:05 MCH 24.8 pg (25.0-35.0) L 05/13/18 06:05 MCHC 30.2 g/dl (31.0-37.0) L 05/13/18 06:05 RDW 16.3 % (11.5-14.5) H 05/13/18 06:05 Plt Count 346 10^3/uL (120.0-450.0) 05/13/18 06:05 MPV 8.8 fl (7.0-11.0) 05/13/18 06:05 Gran % 92.7 % (50.0-68.0) H 05/13/18 06:05 Lymph % (Auto) 5.6 % (22.0-35.0) L 05/13/18 06:05 Creek % (Auto) 1.7 % (1.0-6.0) 05/13/18 06:05 Eos % (Auto) 0.0 % (1.5-5.0) L 05/13/18 06:05 Baso % (Auto) 0.0 % (0.0-3.0) 05/13/18 06:05 Gran # 9.19 (1.4-6.5) H 05/13/18 06:05 Lymph # (Auto) 0.6 (1.2-3.4) L 05/13/18 06:05 Creek # (Auto) 0.2 (0.1-0.6) 05/13/18 06:05 Eos # (Auto) 0.0 (0.0-0.7) 05/13/18 06:05 Baso # (Auto) 0.00 K/mm3 (0.0-2.0) 05/13/18 06:05 Neutrophils % (Manual) 94 % (50.0-70.0) H 05/13/18 06:05 Lymphocytes % (Manual) 5 % (22.0-35.0) L 05/13/18 06:05 Monocytes % (Manual) 1 % (1.0-6.0) 05/13/18 06:05 Platelet Evaluation Normal (NORMAL) 05/13/18 06:05 Large Platelets Present 05/13/18 06:05 pCO2 43 mm/Hg (35-45) 05/11/18 23:50 pO2 74.0 mm/Hg (80-100) L 05/11/18 23:50 HCO3 28.5 mmol/L (21-28) H 05/11/18 23:50 ABG pH 7.43 (7.35-7.45) 05/11/18 23:50 ABG Total CO2 29.8 mmol.L (22-28) H 05/11/18 23:50 ABG O2 Saturation 98.1 % (95-98) H 05/11/18 23:50 ABG Base Excess 3.7 mmol/L (-2.0-3.0) H 05/11/18 23:50 ABG Potassium 3.9 mmol/L (3.6-5.2) 05/11/18 23:50 Sodium 134.0 mmol/L (132-148) 05/11/18 23:50 Chloride 98.0 mmol/L (98-107) 05/11/18 23:50 Glucose 342 mg/dl (75-110) H 05/11/18 23:50 Lactate 1.1 mmol/L (0.7-2.1) 05/11/18 23:50 FiO2 24.0 % 05/11/18 23:50 Sodium 139 mmol/L (132-148) 05/13/18 06:05 Potassium 4.0 mmol/L (3.6-5.0) 05/13/18 06:05 Chloride 104 mmol/L (98-107) 05/13/18 06:05 Carbon Dioxide 31 mmol/L (21-33) 05/13/18 06:05 Anion Gap 9 (10-20) L 05/13/18 06:05 BUN 20 mg/dL (7-21) 05/13/18 06:05 Creatinine 0.9 mg/dl (0.8-1.5) 05/13/18 06:05 Est GFR ( Amer) > 60 05/13/18 06:05 Est GFR (Non-Af Amer) > 60 05/13/18 06:05 POC Glucose (mg/dL) 160 mg/dL (65-110) H 05/13/18 16:22 Random Glucose 228 mg/dL (70-110) H 05/13/18 06:05 Calcium 9.1 mg/dL (8.4-10.5) 05/13/18 06:05 Phosphorus 2.9 mg/dL (2.5-4.5) 05/13/18 06:05 Magnesium 2.2 mg/dL (1.7-2.2) 05/13/18 06:05 Total Bilirubin 0.1 mg/dL (0.2-1.3) L 05/13/18 06:05 AST 32 U/L (17-59) 05/13/18 06:05 ALT 19 U/L (7-56) 05/13/18 06:05 Alkaline Phosphatase 101 U/L (38-126) 05/13/18 06:05 Total Protein 6.5 g/dL (5.8-8.3) 05/13/18 06:05 Albumin 3.1 g/dL (3.0-4.8) 05/13/18 06:05 Globulin 3.4 gm/dL 05/13/18 06:05 Albumin/Globulin Ratio 0.9 (1.1-1.8) L 05/13/18 06:05 Arterial Blood Potassium 3.9 mmol/L (3.6-5.2) 05/11/18 23:50 Urine Color Yellow (YELLOW) 05/12/18 16:33 Urine Appearance Clear (CLEAR) 05/12/18 16:33 Urine pH 7.5 (4.7-8.0) 05/12/18 16:33 Ur Specific [place] 1.010 (1.005-1.035) 05/12/18 16:33 Urine Protein Negative mg/dL (<30 mg/dL) 05/12/18 16:33 Urine Glucose (UA) >=1000 mg/dL (NEGATIVE) 05/12/18 16:33 Urine Ketones Negative mg/dL (NEGATIVE) 05/12/18 16:33 Urine Blood Negative (NEGATIVE) 05/12/18 16:33 Urine Nitrate Negative (NEGATIVE) 05/12/18 16:33 Urine Bilirubin Negative (NEGATIVE) 05/12/18 16:33 Urine Urobilinogen 0.2 E.U./dL (<1 E.U./dL) 05/12/18 16:33 Ur Leukocyte Esterase Negative Nash/uL (NEGATIVE) 05/12/18 16:33 Urine Opiates Screen Positive (NEGATIVE) H 05/12/18 16:33 Urine Methadone Screen Negative (NEGATIVE) 05/12/18 16:33 Ur Barbiturates Screen Negative (NEGATIVE) 05/12/18 16:33 Ur Phencyclidine Scrn Negative (NEGATIVE) 05/12/18 16:33 Ur Amphetamines Screen Negative (NEGATIVE) 05/12/18 16:33 U Benzodiazepines Scrn Negative (NEGATIVE) 05/12/18 16:33 U Oth Cocaine Metabols Negative (NEGATIVE) 05/12/18 16:33 U Cannabinoids Screen Negative (NEGATIVE) 05/12/18 16:33 Influenza Typ A,B (EIA) Negative for flu a/b (NEGATIVE) 05/11/18 20:44 Attending/Attestation - Attestation I have personally seen and examined this patient.: Yes I have fully participated in the care of the patient.: Yes I have reviewed all pertinent clinical information, including history, physical exam and plan: Yes Notes (Text): 05/14/18 07:35 Attending note; Patient seen and examined with resident. Patient is alert and awake. cough and shortness of breath is improving. On oxygen nasal cannula. Patient is ambulating with physical therapy today. Feeling more comfortable than yesterday. Patient is a 63 year old male with PMH of HIV on HAART, COPD 2L O2, HTN, DM, hepatitis C (untreated), chronic drug abuse ,chronic pancreatitis, and cataracts presenting with SOB for the past 2 days . 1. Acute COPD exacerbation; continue home oxygen . Continue Xopenex and IV Solu-Medrol. Influenza is negative. 2. History of HIV on HAART therapy; continue home meds. 3. Hypertension; blood pressure is acceptable. 4. Diabetes; continue Levemir. Dosage increased. Patient is sitting educated about the need for blood sugar control . 5. Status post fall; right hip and knee pain. Pelvis x-ray showed right lumbar spondylosis with degenerative disc disease. right hip no fracture noted. Physical therapy evaluation appreciated. 6. Opiate abuse; complete drug abuse cessation is strongly advised. 7. Noncompliance with follow-up. Patient follows up with Dr. lopez. Case discussed with case packer in detail.
== END 2018-05-13 18:09 | disposition home or self-care (01) | DRG 191 ==
LOC: ED 20:05 → ERH 23:09 → 2RSO 05-12 00:20 → 3RNO 05-12 13:13 → OBSVTOIN 05-12 13:36
PROVIDERS: ADMIT Internal Medicine; ATTEND Internal Medicine
DX: J44.1 Chronic obstructive pulmonary disease with (acute) exacerbation (principal); B20 Human immunodeficiency virus [HIV] disease; K86.1 Other chronic pancreatitis; I10 Essential (primary) hypertension; B19.20 Unspecified viral hepatitis C without hepatic coma; N48.1 Balanitis; E11.40 Type 2 diabetes mellitus with diabetic neuropathy, unspecified; M47.816 Spondylosis without myelopathy or radiculopathy, lumbar region; M51.36 Other intervertebral disc degeneration, lumbar region; M25.551 Pain in right hip; M25.561 Pain in right knee; K59.09 Other constipation; F41.9 Anxiety disorder, unspecified; Z99.81 Dependence on supplemental oxygen; Z79.4 Long term (current) use of insulin; Z79.82 Long term (current) use of aspirin; Z87.891 Personal history of nicotine dependence; Z98.41 Cataract extraction status, right eye